=== PATIENT | female | born 1960 | race American Indian/Alaskan Native ===

== ENCOUNTER 2019-10-12 12:44 | Emergency (ER) | payer MEDICARE, OTHER ==
[~2019-10-12] VITALS: Ht 162.6 cm; Wt 153.3 kg
[~2019-10-12 12:44] MED LIST: AMITRIPTYLINE H10 MG PO; CEPHALEXIN500 MG PO; COZAAR100 MG PO; COZAAR25 MG PO; DICLOFENAC SODI75 MG PO; GLUCOPHAGE XR750 MG PO; HYDROCHLOROTHIA25 MG PO; HYDROCODON-ACE1 EA10 PO; LEVAQUIN500 MG PO; LOVASTATIN20 MG PO; METHOCARBAMOL750 MG PO; MICROZIDE12.5 MG PO; NEURONTIN300 MG PO; NORCO 10-325 T1 EACH PO; NOVOLOG MI100 UNIT/1 SUB-Q; NOVOLOG100 UNITS/ SUB-Q; PROBIOTIC & AC1 EACH PO; SYNTHROID25 MCG PO; THERA-M TABLET1 EA PO; VITAMIN D35000 UNIT PO
--- OUTSIDE RECORDS SUMMARY | 2019-10-12 12:46 | XMS ---
PreManage Notification: RONY CORREIA Security Bead Preparer Events No recent Security Events currently on file [facility] There are no care providers on record at this time. Jasbir has no Care Guidelines for this patient. Kailyn VISIT COUNT (12 MO.) 1 ARMANDO Ronquillo TOTAL 1 NOTE: Visits indicate total known visits. ED/UCC VISIT TRACKING (12 MO.) 10/12/2019 12:44 [facility] [place] TYPE: Emergency COMPLAINT: - CHEST PAIN INPATIENT VISIT TRACKING (12 MO.) No inpatient visits to display in this time frame [email or web address]
--- NOTE | 2019-10-12 20:43 | EKG ---
[facility] [address] [facility] [place], [place] [address] Signed Sinus rhythm with occasional premature ventricular complexes Right bundle branch block Septal infarct , age undetermined T wave abnormality, consider inferolateral ischemia Abnormal ECG Confirmed by THI MURRAY MD ([id number]) on 10/12/2019 8:43:28 PM Electronically Signed By: THI MURRAY MD 10/12/192042 PATIENT NAME: RONY CORREIA KANDI Electrocardiogram DATE OF : 64 PHYSICIAN: THI MURRAY MD REPORT #: [id number] REPORT IS CONFIDENTIAL AND NOT TO BE RELEASED WITHOUT AUTHORIZATION
--- NOTE | 2019-10-12 20:44 | EKG ---
[facility] [address] [facility] [place] [address] Signed Normal sinus rhythm Right bundle branch block Possible Inferior infarct , age undetermined T wave abnormality, consider lateral ischemia Abnormal ECG When compared with ECG of 12-OCT-2019 12:48, (Unconfirmed) premature ventricular complexes are no longer present Confirmed by THI MURRAY MD ([id number]) on 10/12/2019 8:43:56 PM Electronically Signed By: THI MURRAY MD 10/12/19 2044 PATIENT NAME: RONY CORREIA Electrocardiogram DATE OF : 64 PHYSICIAN: THI MURRAY MD REPORT #: [id number] REPORT IS CONFIDENTIAL AND NOT TO BE RELEASED WITHOUT AUTHORIZATION
== END 2019-10-12 17:27 | disposition short-term general hospital (02) ==
LOC: ED 12:44
DX: I95.9 Hypotension, unspecified (principal); R79.1 Abnormal coagulation profile; E11.40 Type 2 diabetes mellitus with diabetic neuropathy, unspecified; Z79.899 Other long term (current) drug therapy; Z79.4 Long term (current) use of insulin
CPT/HCPCS: 71045; 74176; 80053; 81001; 83605; 83735; 84484; 85025; 86850; 86900; 86901; 87077; 87088; 87186; 93005; 93010; 96374; 96375; 99291; J0696; J7030; J7050

== ENCOUNTER 2019-11-29 16:37 | Inpatient (IN) | payer MEDICARE, OTHER ==
[~2019-11-29] VITALS: Ht 162.6 cm; Wt 187.8 kg
--- OUTSIDE RECORDS SUMMARY | ~2019-11-29 | XMS | Encounter Summary ---
Demographics + + + | Address | [address] | | | [place] [address] | + + + | Home Phone | | + + + | Preferred Language | Unknown | + + + | Marital Status | | + + + | Mu-Ism Affiliation | Unknown | + + + | Race | Unknown | + + + | Ethnic Group | Unknown | + + + Author + + + | Author | [facility] | | | and [place] | + + + | Organization | [facility] | | | and [place] | + + + | Address | Unknown | + + + | Phone | Unavailable | + + + Support + + +---------+ + | Name | Relationship | Address | Phone | + + +---------+ + | Harshil Mckay | ECON | Unknown | | + + +---------+ + Care Team Providers + +------+ + | Care Interactive Designer Name | Role | Phone | + +------+ + | Mell Bautista | PCP | | + +------+ + Reason for Visit Auth/Cert +--------+--------+ + + + + | Status | Reason | Specialty | Diagnoses / | Referred By | Referred To | | | | | Procedures | Contact | Contact | +--------+--------+ + + + + | | | | | | | +--------+--------+ + + + + Encounter Details +--------+ + + + + | Date | Type | Department | Care Team | Description | +--------+ + + + + | 11/20/ | Home Care | [facility] | Triston Holley | CASE COMMUNICATION | | 2020 | Visit | [place] [address] | [place], [facility] | | | | | [place], [place] | [phone] | | | | | [address] | | | | | | [phone] | | | +--------+ + + + + Social History + +-------+ +--------+------+ | Tobacco Use | Types | Packs/Day | Years | Date | | | | | Used | | + +-------+ +--------+------+ | Never Smoker | | | | | + +-------+ +--------+------+ + +---+---+---+ | Smokeless Tobacco: | | | | | Never Used | | | | + +---+---+---+ + + +---------+ + | Alcohol Use | Drinks/Week | oz/Week | Comments | + + +---------+ + | Yes | 0 Standard drinks | 0.0 | RARE, about 6 beers | | | or equivalent | | per year | + + +---------+ + + + + | Sex Assigned at | Date Recorded | | | | + + + | Not on file | | + + + documented as of this encounter Functional Status + + + + | Functional Status | Response | Date of Assessment | + + + + | Are you deaf or do you have serious | No | 10/16/2019 | | difficulty hearing? | | | + + + + | Are you blind or do you have serious | No | 10/16/2019 | | difficulty seeing, even when wearing | | | | glasses? | | | + + + + | Do you have serious difficulty walking or | Yes | 10/16/2019 | | climbing stairs? (5 years old or older) | | | + + + + | Do you have difficulty dressing or bathing? | Yes | 10/16/2019 | | (5 years old or older) | | | + + + + | Because of a physical, mental, or emotional | Yes | 10/16/2019 | | condition, do you have difficulty doing | | | | errands alone such as visiting a doctor's | | | | office or shopping? [15 years old or | | | | older)] | | | + + + + + + + + | Cognitive Status | Response | Date of Assessment | + + + + | Because of a physical, mental, or emotional | No | 10/16/2019 | | condition, do you have serious difficulty | | | | concentrating, remembering, or making | | | | decisions? (5 years old or older) | | | + + + + documented as of this encounter Plan of Treatment +--------+ + + + + | Date | Type | Specialty | Care Team | Description | +--------+ + + + + | 12/02/ | Home Care | Home Health Services | [facility], | | | 2019 | Visit | | GENETIC PHYSICIAN [address] | | | | | | [place] | | | | | | [address] | | +--------+ + + + + | 12/04/ | Home Care | Home Health Services | [facility], | | | 2019 | Visit | | GENETIC PHYSICIAN [address] | | | | | | [place] | | | | | | [address] | | +--------+ + + + + | 12/04/ | Office | Sleep Medicine | Bre Vivas | | | 2019 | Visit | | XAVI Saldana [address] | | | | | | [address] [place] | | | | | | [place] [address] | | | | | | [phone] | | | | | | | | +--------+ + + + + | 12/05/ | Home Care | Home Health Services | Shoshana Caldwell, | | | 2019 | Visit | | RN | | +--------+ + + + + | 12/05/ | Home Care | Home Health Services | Eugenio Romeo | | 2019 | Visit | | [place] | | +--------+ + + + + | 12/09/ | Home Care | Home Health Services | [facility], | | | 2019 | Visit | | GIRISH [address] | | | | | | [place] | | | | | | [address] | | +--------+ + + + + | 12/11/ | Home Care | Home Health Services | Shoshana Caldwell, | | | 2019 | Visit | | RN | | +--------+ + + + + | 12/12/ | Home Care | Home Health Services | Eugenio Romeo | | | 2019 | Visit | | [place] | | +--------+ + + + + | 12/16/ | Appointment | Home Health Services | Hemal Sequeira, PT | | | 2019 | | | [address] [place] | | | | | | [place] [address] | | | | | | [phone] | | | | | | | | +--------+ + + + + | 12/18/ | Appointment | Home Health Services | Shoshana Caldwell, | | | 2019 | | | RN | | +--------+ + + + + | 12/19/ | Home Care | Home Health Services | Eugenoi Romeo | | | 2019 | Visit | | M, OT | | +--------+ + + + + | 01/22/ | Office | Cardiology | Zuhair Lee | | | 2019 | Visit | | MD Walker [address] | | | | | | [address] | | | | | | [place] [address] | | | | | | [phone] | | | | | | | | +--------+ + + + + documented as of this encounter Visit Diagnoses Not on filedocumented in this encounter"
--- OUTSIDE RECORDS SUMMARY | ~2019-11-29 | XMS | Encounter Summary ---
Demographics + + + | Address | [address] | | | [place] [address] | + + + | Home Phone | | + + + | Preferred Language | Unknown | + + + | Marital Status | | + + + | Roman Catholic Affiliation | Unknown | + + + | Race | Unknown | + + + | Ethnic Group | Unknown | + + + Author + + + | Author | [facility] | | | and [place] | + + + | Organization | [facility] | | | and [place] | [...] Team Providers + +------+ + | Care Leather Crafter Name | Role | Phone | + [...] | +--------+ + + + + | 11/28/ | Home Care | [facility] | Eugenio Romeo | CASE COMMUNICATION | | 2020 | Visit | [place] [address] | [place] | | | | | [place], [place] | | | | | | [address] | | | | | | [phone] | | | +--------+ + + + [...] | | 2019 | Visit | | CAREER SERVICES REPRESENTATIVE [address] | | | | | | [place] | | | | | | [address] | | +--------+ + + + + | 12/04/ | Home Care | Home Health Services | [facility], | | | 2019 | Visit | | CAREER SERVICES REPRESENTATIVE [address] | | | | | | [place] | | | | | | [address] | | +--------+ + + + + | 12/04/ | Office | Sleep Medicine | Bre Vivas | | | 2019 | Visit | | XAVI Saldana [address] | | | | | | [address] | | | | | | [place] [address] | | | | | | [phone] | | | | | | | [...] | | 2019 | Visit | | CAREER SERVICES REPRESENTATIVE [address] | | | | | | [place], [place] | | | | | | [address] | | +--------+ + + + + [...] | 2019 | | | [address] [place] | | | | | | [place] [address] | | | | | | [phone] | | | | | | | [...] | | | | | | [address] | | | | | | [place] [address] | | | | | | [phone] | | | | | | | | +--------+ + + + + documented as of this encounter Visit Diagnoses Not on filedocumented in this encounter"
--- OUTSIDE RECORDS SUMMARY | ~2019-11-29 | XMS | Encounter Summary ---
Demographics + + + | Address | [address] | | | [place] [address] | + + + | Home Phone | | + + + | Preferred Language | Unknown | + + + | Marital Status | | + + + | Hoahaoism Affiliation | Unknown | + + + | Race | Unknown | + + + | Ethnic Group | Unknown | + + + Author + + + | Author | [facility] | | | and [place] | + + + | Organization | [facility] | | | and [...] Team Providers + +------+ + | Care Assistant Manager Quality Management Name | Role | Phone | + [...] | +--------+ + + + + | 11/07/ | Home Care | [facility] [place] | [facility], | PT REPEAT VISIT | | 2020 | Visit | [place] [address] | JUNK REMOVAL SPECIALIST [address] | | | | | [place], [place] | [place] | | | | | [address] | [address] | | | | | [phone] | | | +--------+ + + + [...] + + + | Blood Pressure | - | - | | + + + + + | Pulse | 80 | 11/08/2019 10:10 AM | | | | | PDT | | + + + + + | Temperature | 36.1 C (96.9 F) | 11/08/2019 10:10 AM | | | | | PDT | | + + + + + | Respiratory Rate | - | - | | + + + + + | Oxygen Saturation | 90% | 11/08/2019 10:10 AM | | | | | PDT [...] this encounter Miscellaneous Notes Home Health - Rory[facility]upo, JUNK REMOVAL SPECIALIST - 11/08/2019 10:03 AM PDT1) Are you or anyone you [...] Level 3 Travel Health Notice: [place]: [place], [place], [place] ([facility]): [place], [place], [place], [place], [place], [place], [place] , [place], [place], [place], [place], [place], [place], [place], [place], [place], [facility], [place], [place], [place], [place], [place], [place], [place], [place], [place], [facility], [place], [facility] [place] and [place]: [place], [place], [place], [place], [place] Indicate positive screen if: Answer to any question 1-5 is yes or answer to question 6 indicates travel to a Level 3 anam tination. Consult with assistant office manager prior to visit. Subjective: pt using rolling stool for mobility at therapist arrival. Pt has ongoing otm consultant al/intrinsic factors that may affect outcomes including SOB with activity and R knee pain. P t tolerated treatment today limited due to low O2 sats with activity. Pt O2 decreased to 84% with gait activity. Pt reports she is tired today. Objective: instructed and performed as per interventions list. Pt education: -fall prevention: Instructed in the following home safety modifications and equipment use: use AD at all times when up/ambulating, remove all throw rugs , clear pathways and use of no n-skid footwear. -breathing pattern and energy conservation: instructed pt is energy conservation, task ritu akdown and simplification, and breathing patterns/techniques including diaphragmatic breathi ng and pursed lip breathing for recovery post exertion. Assessment: Has ongoing impairments, functional mobility constraints, and/or situational d ynamics that need to be addressed in continued skilled therapy including SOB with activity and R knee pain. Progress toward goals limited this TX due to SOB with any standing activi ty. pt O2 decreased to less then 90% with gait or extended standing returned to > 92% with s itting rest. educated pt with energy conservation and breathing patterns to maintain O2. not ified 1st PT of pt O2 issues, recommend RT see pt. Pt R knee pain also limiting pt tolerance to gait and standing activity's.Electronically signed by [facility] PTA at 0 4:34 PM PDTdocumented in this encounter Plan of Treatment +--------+ + + + + | Date | Type | Specialty | Care Team | Description | +--------+ + + + + | 12/02/ | Home Care | Home Health Services | Grupo Valadez, | | | 2019 | Visit | | JUNK REMOVAL SPECIALIST [address] | | | | | | [place] | | | | | | [address] | | +--------+ + + + + | 12/04/ | Home Care | Home Health Services | [facility], | | | 2019 | Visit | | JUNK REMOVAL SPECIALIST [address] | | | | | | [place] | | | | | | [address] | | +--------+ + + + + | 12/04/ | Office | Sleep Medicine | Bre Vivas | | | 2019 | Visit | | XAVI Saldana [address] | | | | | | [address] [place] | | | | | | [place] [address] | | | | | | [phone] | | | | | | | [...] | | 2019 | Visit | | JUNK REMOVAL SPECIALIST [address] | | | | | | [place] | | | | | | [address] | | +--------+ + + + + [...] Services | Hemal Sequeira, PT | | 2019 | | | [address] [place] | | | | | | [place] [address] | | | | | | [phone] | | | | | | | [...] | | | | | | [address] [place] | | | | | | [place] [address] | | | | | | [phone] | | | | | | | | +--------+ + + + + documented as of this encounter Visit Diagnoses Not on filedocumented in this encounter Home Health Visit - Care Plan + + | Visit Type - PT - REPEAT VISIT | | Discipline - Physical Therapy | + + + + +--------+--------+ + + | Problem | Description | Start | Status | Goals | Interventio | | | | Date | | | ns | + + +--------+--------+ + + | HH PT IMPAIRED | Impaired gait | | | 1 goal | 1 goal | | GAIT Disciplines: | | 10/31/19 | Active | linked to | interventio | | Physical Therapy | | 20 | | scheduled/d | n | | | | | | ocumented | scheduled/d | | | | | | interventio | ocumented | | | | | | n | in this | | | | | | | visit | + + +--------+--------+ + + | HH PT IMPAIRED | Impaired transfers | | | 1 goal | 1 goal | | TRANSFERS | | 10/31/19 | Active | linked to | interventio | | Disciplines: | | 20 | | scheduled/d | n | | Physical Therapy | | | | ocumented | scheduled/d [...] | + + +--------+-------+ + | HH PT GAIT/STAIRS | HH PT IMPAIRED | | No | | | Description: The | GAIT | | | | | patient will | | | | | | ambulate 50 feet | | | | | | using front-wheeled | | | | | | walker | | | | | | independently with | | | | | | assistive device | | | | | | 11/30/19. OUTCOMES: | | | | | | The patient will be | | | | | | able to safely | | | | | | ambulate to/from | | | | | | inside home to | | | | | | vehicle parked | | | | | | outside. . | | | | | + + +--------+-------+ + | HH PT TRANSFERS | HH PT IMPAIRED | | No | | | Description: The | TRANSFERS | | | | | patient and/or | | | | | | caregiver will | | | | | | understand and | | | | | | demonstrate safe | | | | | | transfer sequencing | | | | | | including car | | | | | | transfer by 11/30/19. | | | | | | Outcomes: The | | | | | | patient will reach | | | | | | maximal independence | | | | | | and safety with | | | | | | transfers to/from | | | | | | the all necessary | | | | | | household surfaces | | | | | | and car | | | | | + + +--------+-------+ + + + +--------+--------+ + | Intervention | Associated | Status | Varian | Visit Notes | | | Problem/Goal | | ce | | + + +--------+--------+ + | Pt gait training | Problem: HH PT | | | Therapist educated pt | | Description: | IMPAIRED GAITGoal: | Comple | | on appropriate AD use | | Evaluate and | HH PT GAIT/STAIRS | nellie | | given noted deficits and | | instruct patient | | | | impairments. Instructed | | and/or caregiver in | | | | pt with use of QC for | | gait training using | | | | 2x20 feet on even | | front-wheeled walker | | | | surfaces, completed task | | no weight bearing | | | | with contact guard | | restrictions | | | | assistance. Therapist | | | | | | gave VC for improved | | | | | | postural mechanics and | | | | | | normalized loading | | | | | | mechanics through ankles | | | | | | and hips. notes | | | | | | ongoing deficits: SOB | | | | | | with activity and R knee | | | | | | pain that limits gait., | | | | | | that will continue to | | | | | | be addressed in future | | | | | | visits. | + + +--------+--------+ + | PT transfer | Problem: HH PT | | | instructed pt on | | training | IMPAIRED | Comple | | corrected sit to stand | | Description: | TRANSFERSGoal: HH PT | nellie | | mechanics including | | Evaluate and | TRANSFERS | | | appropriate timing and | | instruct patient | | | | amplitude of forward wt | | and/or caregiver in | | | | shift at initiation, | | safe transfers using | | | | avoiding posterior | | appropriate body | | | | support on legs, and | | mechanics and | | | | completion of stance | | necessary equipment. | | | | with adequate hip | | | | | | extension to align | | | | | | pelvis and spine for | | | | | | optimal stability and | | | | | | function. | + + +--------+--------+ + documented in this encounter"
--- OUTSIDE RECORDS SUMMARY | ~2019-11-29 | XMS | Encounter Summary ---
Demographics + + + | Address | [address] | | | [place] [address] | + + + | Home Phone [...] + + + | Author | [facility] | | | and [place] | + + + | Organization | [facility] | | | and [place] | [...] Team Providers + +------+ + | Care Liberal Arts Dean Name | Role | Phone | + +------+ + | Mell Bautista | PCP | | + +------+ + Reason for Referral Evaluate & Treat (Routine) +--------+ + + + + + | Status | Reason | Specialty | Diagnoses / | Referred By | Referred To | | | | | Procedures | Contact | Contact | +--------+ + + + + + | Closed | Specialty | Cardiology | Diagnoses | Mauricio | Earl [facility] | | | Services | | Elevated | MD Daniel | Cardiology | | | Required | | troponin | [address] | [address] | | | | | Acute | [place] | [place], | | | | | cystitis | [place], [place] | [place] | | | | | without | [address] | [address] | | | | | hematuria | Phone: | Phone: | | | | | Sepsis, due | [phone] | [phone] | | | | | to | Fax: | Fax: | | | | | unspecified | [phone] | [phone] | | | | | organism, | | | | | | | unspecified | | | | | | | whether | | | | | | | acute organ | | | | | | | dysfunction | | | | | | | present | | | | | | | (HCC) | | | +--------+ + + + + + Evaluate & Treat (Routine) +--------+ + + + + + | Status | Reason | Specialty | Diagnoses / | Referred By | Referred To | | | | | Procedures | Contact | Contact | +--------+ + + + + + | Closed | Specialty | Sleep | Diagnoses | Mauricio, | [facility] | | | Services | Medicine | Elevated | MD Daniel | [facility] | | | Required | | troponin | [address] | Disorder [address] | | | | | Acute | [address] [place] | [address] | | | | | cystitis | [place], [place] | [place], | | | | | without | [address] | [place] [address] | | | | | hematuria | Phone: | Phone: | | | | | Sepsis, due | [phone] | [phone] | | | | | to | Fax: | Fax: | | | | | unspecified | [phone] | [phone] | | | | | organism, | | | | | | | unspecified | | | | | | | whether | | | | | | | acute organ | | | | | | | dysfunction | | | | | | | present | | | | | | | ([facility]) | | | +--------+ + + + + + Home Health Care (Routine) +--------+ + + + + + | Status | Reason | Specialty | Diagnoses / | Referred By | Referred To | | | | | Procedures | Contact | Contact | +--------+ + + + + + | Closed | Specialty | Home Health | Diagnoses | Mauricio, | Prov [facility] | | | Services | Services | Elevated | MD Daniel | [place] | | | Required | | troponin | [address] | [address] | | | | | Acute | [place] | [place] | | | | | cystitis | [place] | [place] | | | | | without | [address] | [address] | | | | | hematuria | Phone: | Phone: | | | | | Sepsis, due | [phone] | [phone] | | | | | to | Fax: | Fax: | | | | | unspecified | [phone] | [phone] | | | | | organism, | | | | | | | unspecified | | | | | | | whether | | | | | | | acute organ | | | | | | | dysfunction | | | | | | | present | | | | | | | ([facility]) | | | | | | | Procedures | | | | | | | 10/21/19 SN | | | | | | | PT OT*10/23* | | | +--------+ + + + + + Reason for Visit Auth/Cert +--------+--------+ + + + + | Status | Reason | Specialty | Diagnoses / | Referred By | Referred To | | | | | Procedures | Contact | Contact | +--------+--------+ + + + + | | | | Diagnoses | | | | | | | Sepsis, | | | | | | | elevated | | | | | | | troponin | | | +--------+--------+ + + + + Encounter Details +--------+ + + + + | Date | Type | Department | Care Team | Description | +--------+ + + + + | 10/11/ | Hospital | [facility] | Daniel Martínez MD | Elevated troponin; | | 2019 - | Encounter | [facility] | [address] | Acute cystitis | | | | [address] [place] | [place] | without hematuria; | | 10/15/ | | [place] [address] | [address] | Sepsis, due to | | 2019 | | [phone] | | unspecified | | | | | | organism, | | | | | | unspecified whether | | | | | | acute organ | | | | | | dysfunction present | | | | | | ([facility]) | +--------+ + + + + Social [...] + + + | Blood Pressure | 126/72 | 10/16/2019 7:40 AM | | | | | PDT | | + + + + + | Pulse | 87 | 10/16/2019 9:30 AM | | | | | PDT | | + + + + + | Temperature | 36.5 C (97.7 F) | 10/16/2019 7:40 AM | | | | | PDT | | + + + + + | Respiratory Rate | 16 | 10/16/2019 9:30 AM | | | | | PDT | | + + + + + | Oxygen Saturation | 90% | 10/16/2019 9:30 AM | | | | | PDT | | + + + + + | Inhaled Oxygen | - | - | | | Concentration | | | | + + + + + | Weight | 156.4 kg (344 lb | 10/16/2019 5:00 AM | | | | 12.8 oz) | PDT | | + + + + + | Height | 162.6 cm (5' 4") | 10/12/2019 6:12 PM | | | | | PDT | | + + + + + | Body Mass Index | 59.18 | 10/12/2019 6:12 PM | | | | | PDT | [...] + + documented as of this encounter Discharge Summaries Daniel Martínez MD - 10/16/2019 11:10 AM PDT [place], [place] HOSPITALIST DISCHARGE SUMMARY Pt. Name/Age/: Norbert Mckay 58 y.o. 1960 Date of Admission: 10/12/2019 Date of Discharge: 10/16/2019 Admitting Physician: Daniel Martínez MD Primary Care Provider: MARTHA Mcmahan Discharging Physician: Daniel Martínez MD DISCHARGE DIAGNOSES: UTI with sepsis POA Acute renal failure due to ischemic ATN Hyperkalemia due to renal failure Elevated troponin, likely demand ischemia in the context of hypotension/sepsis and impaired renal function IDDM Hypothyroidism Chronic pain Morbid obesity DISCHARGE MEDICATIONS: Discharge Medications New Medications Details aspirin 81 MG EC tablet Take 1 tablet by mouth Daily. aka: ASPIRIN ADULT LOW STRENGTH carvedilol 3.125 mg tablet Take 1 tablet by mouth 2 times daily. aka: COREG ciprofloxacin 500 mg tablet Take 1 tablet by mouth 2 times daily. aka: CIPRO lidocaine 5% patch Place 1 patch onto the skin Daily Apply for 12 hours, then remove for 12 hours.. aka: LIDODERM miconazole 2% powder For inner thigh skin infection. aka: MICATIN Unchanged Medications Details amitriptyline 10 mg tablet Take 20 mg by mouth nightly. aka: ELAVIL cholecalciferol 125 mcg (5,000 units) tablet Take 5,000 Units by mouth Daily. aka: VITAMIN D-3 cholecalciferol 25 mcg (1,000 units) capsule Take 1,000 Units by mouth Daily. aka: VITAMIN D-3 diclofenac 75 mg EC tablet Take 75 mg by mouth 2 times daily. aka: VOLTAREN ferrous sulfate 325 mg tablet Take 325 mg by mouth daily (with breakfast). gabapentin 300 mg capsule Take 600 mg by mouth 4 times daily. aka: NEURONTIN HYDROcodone-acetaminophen 10-325 mg per tablet Take 1 tablet by mouth every 6 hours as needed for Pain. aka: NORCO insulin - MIX insulin aspart protamine-insulin aspart 70/30 100 units/mL PEN Inject 35-45 Units under the skin 2 times daily (with breakfast & dinner). aka: novoLOG 70/30 levothyroxine 25 mcg tablet Take 25 mcg by mouth every morning (before breakfast). aka: SYNTHROID lovastatin 20 mg tablet Take 20 mg by mouth nightly. aka: MEVACOR metFORMIN 500 mg tablet Take 500 mg by mouth daily (with breakfast). aka: GLUCOPHAGE methocarbamol 750 mg tablet Take 750 mg by mouth 4 times daily. aka: ROBAXIN THERAGRAN PO Take 1 tablet by mouth Daily. UNABLE TO FIND Twice daily as needed. Med Name: Bio freeze Discontinued Medications hydroCHLOROthiazide 12.5 MG tablet aka: HYDRODIURIL losartan 50 mg tablet aka: [facility] COURSE: Please refer to the H&P for full details and the most recent rounding rounding (progress) n ote. In short Mrs Barrow a 58 y/omorbidly obese ladyw/pmhx of HTN,HDL,IDDM,MESHA, hypothyroi dism chronic pain syndrome on opioids with contract, vitamin D deficiency who [facility], near syncopal episode. Evaluation at outside hospital revealed hypotension, elevated white count, elevated lactic acid, elevated troponin with no acute EK G changes, dirty UA. Patient was diagnosed with sepsis source UTI, mildly elevated trendin g troponin. At our facility she was treated for sepsis with UTI, her BP has been consistent ly low and measurements not reliable with difficulty to find a proper cuff for her large arm s, she received an A-line for appropriate BP monitoring, she required short course of levoph ed to maintain her blood pressure and reestablish appropriate renal perfusion pressure. She sustained ischemic ATN due to low blood pressure with creatinine rise to 3.58, her kidney f unction started improving after BP went up. She was successfully weaned off norepinephrine with good blood pressures and eventually went to high blood pressure, her A-line was removed and she was transferred to general medicine floor where she continued to improve clinically . Her kidney function drifted down to 2.4 on the day of discharge, I explained to her that after ischemic ATN it may take several weeks for creatinine to normalize, she has been passi ng good urine all throughout. Her troponin went up from 0.1->0.7 and that was non-trending, with no chest pain or acute ischemic changes on EKG, I discussed this with fire fighting equipment specialist who recommended medical management, unfortunately she would not be a candidate for stress test or cath due to body weight. Patient was prescribed aspirin and low-dose carvedilol at disch arge, she was counseled extensively on risk factor modifications mainly losing weight. I di scontinued her losartan in light of renal failure, she was discharged home in stable conditi on, should follow-up with PCP within 7 days of discharge and her labs should be checked for kidney function, electrolytes. Continued BP monitoring was recommended and PCP may adjust h er meds according to renal function and BP readings. PT evaluated the patient recommended S NF, patient declined and was discharged with home health and PT. Her other medical problems remained stable and did not require modification of current management, patient stable clin ically at the time of discharge. Most recent weight: Input and output for last 24hrs: Wt Readings from Last 1 Encounters: 10/16/19 (!) 156.4 kg (344 lb 12.8 oz) I/O last 24 Hours: In: 2857 [P.O.:2857] Out: 2024 [Urine:2024] Vitals Ranges: Temp: [36.1 C (97 F)-37.2 C (99 F)] 36.5 C (97.7 F) Pulse: [70-92] 87 Resp: [16-18] 16 BP: (126-164)/(64-86) 126/72 Vitals: Temp: 36.5 C (97.7 F) BP: 126/72 Pulse: 87 Resp: 16 SpO2: 90 % SpO2 90 % on room air at flow rate 2L/min PHYSICAL EXAM: Patient seen and examined by me on discharge day Constitutional: NAD, afebrile Eye: pupils round, equal, reactive to light, no conjunctivitis nor scleral icterus Neck:Obese neck,no lymphadenopathy, thyromegaly nor masses Cardiac: RRR, S1/S2,quiet heart sounds,no murmurs, rubs or gallops,moderate bilateral 2+LE edema Lung: non labored breathing, breathing comfortable on room air,diminished breath sounds, no overtcrackles, wheezing or rhonchi Abdomen:Very obese abdomen,soft, NT,moderatelydistended, no HSM nor masses, BS + MSK: normal mobility in all four extremities, normal range of motion Skin: no rash,redness and discoloration from inner thighs of both thighs resembling funga l infection, chronic venous stasis changes on both calves Psych: mood and affect normal, oriented x3, appropriate and cooperative PROCEDURES AND CONSULTS: Procedures Arterial line placement Consults PT/OT PENDING RESULTS: None DISPOSITION AND DISCHARGE INSTRUCTIONS: Follow-up Information MARTHA Mcmahan. Go on 10/22/2019. Specialty: Nurse Practitioner Why: Hospital follow up appointment, check in at 1:45PM. Contact information: [address] [place] [address] 575- [phone] Condition: Patient being discharged with condition improved. Diet: Heart healthy diabetic diet, low calorie Greater than 30 minutes were spent on discharge and coordination of post-hospital care. Electronically signed by: Daniel Martínez MD, 10/16/2019 11:10 AM PDT [facility] Portions of this chart may have been created with [employer] voice recognition software. Occasi onal wrong-word or sound-alike substitutions may have occurred due to the inherent norris itations of voice recognition software. Please read the chart carefully and recognize, using context, where these substitutions have occurred documented in this enco unter Discharge Instructions Instructions Katy Robison, PharmD - 10/13/2019 Probiotics Patient Discharge Information Sheet Probiotics are often thought of as "friendly bacteria" or "healthy bacteria." They are sim ilar to the bacteria that normally live inside of our body and play a role in helping to vicki p the body working well. If you have been receiving antibiotics in the hospital, consider taking some form of a prob iotic once you are discharged. A reasonable approach is to take some form of probiotics for 5 days after antibiotics are completed. We have included some options below that may be more affordable and contain the types of ba cteria that have been found helpful in studies. If you have any concerns or questions about probiotics, or have a severe problem with your immune system, please discuss with your doctor. Recommended probiotic formulations commonly available in Pharmacies: ? VSL # 3: 1 capsule by mouth twice a day ? Culturelle: 1 capsule by mouth twice a day ? Provella: 1 capsule by mouth twice a day Dairy Product Options with Probiotics: ? Pili's Kefir (many flavors available): 8 ounces per day ? Pili's Organic Yogurt (many flavors available): 8 ounces per day ? Glynn Fresh Yogurt (many flavors available): 6 ounces per day documented in this encounter Medications at Time of Discharge + + + +---------+ + + | Medication | Sig | Dispensed | Refills | Start | End Date | | | | | | Date | | + + + +---------+ + + | amitriptyline | Take 20 mg by mouth | | 0 | | | | (ELAVIL) 10 mg | nightly. | | | | | | tablet | | | | | | + + + +---------+ + + | aspirin (ASPIRIN | Take 1 tablet by | 30 | 0 | 10/16/19 | | | ADULT LOW STRENGTH) | mouth Daily. | tablet | | 20 | | | 81 MG EC tablet | | | | | | + + + +---------+ + + | carvedilol (COREG) | Take 1 tablet by | 60 | 0 | 10/16/19 | | | 3.125 mg tablet | mouth 2 times daily. | tablet | | 20 | | + + + +---------+ + + | cholecalciferol | Take 1,000 Units by | | 0 | | | | (VITAMIN D-3) 1,000 | mouth Daily. | | | | | | units capsule | | | | | | + + + +---------+ + + | cholecalciferol | Take 5,000 Units by | | 0 | | | | (VITAMIN D-3) 5000 | mouth Daily. | | | | | | units TABS | | | | | | + + + +---------+ + + | ciprofloxacin | Take 1 tablet by | 12 | 0 | 10/16/19 | | | (CIPRO) 500 mg | mouth 2 times daily. | tablet | | 20 | | | tablet | | | | | | + + + +---------+ + + | diclofenac | Take 75 mg by mouth | | 0 | | | | (VOLTAREN) 75 mg EC | 2 times daily. | | | | | | tablet | | | | | | + + + +---------+ + + | ferrous sulfate | Take 325 mg by mouth | | 0 | | | | 325 mg tablet | daily (with | | | | | | | breakfast). | | | | | + + + +---------+ + + | gabapentin | Take 600 mg by mouth | | 0 | | | | (NEURONTIN) 300 mg | 4 times daily. | | | | | | capsule | | | | | | + + + +---------+ + + | | Take 1 tablet by | | 0 | | | | HYDROcodone-acetamin | mouth every 6 hours | | | | | | ophen (NORCO) 10-325 | as needed for Pain. | | | | | | mg per tablet | | | | | | + + + +---------+ + + | insulin aspart | Inject 35-45 Units | | 0 | 11/22/19 | | | protamine-insulin | under the skin 2 | | | 20 | | | aspart (NOVOLOG MIX | times daily (with | | | | | | 70/30 FLEXPEN) 100 | breakfast & dinner). | | | | | | units/mL injection | Patient is taking | | | | | | pen | 60 units in am and | | | | | | | 50 units in evening | | | | | + + + +---------+ + + | lidocaine | Place 1 patch onto | 30 | 0 | 10/16/19 | | | (LIDODERM) 5% patch | the skin Daily Apply | patch | | 20 | | | | for 12 hours, then | | | | | | | remove for 12 | | | | | | | hours.. | | | | | + + + +---------+ + + | lovastatin | Take 20 mg by mouth | | 0 | | | | (MEVACOR) 20 mg | nightly. | | | | | | tablet | | | | | | + + + +---------+ + + | metFORMIN | Take 500 mg by mouth | | 0 | | | | (GLUCOPHAGE) 500 mg | daily (with | | | | | | tablet | breakfast). | | | | | + + + +---------+ + + | methocarbamol | Take 750 mg by mouth | | 0 | 11/12/19 | | | (ROBAXIN) 750 mg | 3 times daily. | | | 20 | | | tablet | | | | | | + + + +---------+ + + | miconazole | For inner thigh skin | 30 g | 0 | 10/16/19 | | | (MICATIN) 2% powder | infection. | | | 20 | | + + + +---------+ + + | Multiple Vitamin | Take 1 tablet by | | 0 | | | | (THERAGRAN PO) | mouth Daily. | | | | | + + + +---------+ + + | UNABLE TO FIND | Twice daily as | | 0 | | | | | needed. Med Name: | | | | | | | Bio freeze | | | | | + + + +---------+ + + | levothyroxine | Take 25 mcg by mouth | | 0 | | | | (SYNTHROID, | every morning | | | | 0 | | LEVOTHROID) 25 mcg | (before breakfast). | | | | | | tablet | | | | | | + + + +---------+ + + documented as of this encounter Progress Notes Daniel Martínez MD - 10/15/2019 3:12 PM PDT [place], [place] HOSPITALIST PROGRESS NOTE Patient: Norbert Mckay : 1960: Age: 58 y.o. MedRec: [id number] Admission date: 10/12/2019 Hospital day # : 3 Physician author: Daniel Martínez MD Today: 10/15/2019 Assessment and Hospital Course Mrs Mckay is a 58 y/o morbidly obese lady w/pmhx of HTN, HDL, IDDM, MESHA, hypothyroidism c hronic pain syndrome on opioids with contract, vitamin D deficiency who presented to the hos pital with dizziness, near syncopal episode. Evaluation at outside hospital revealed hypote nsion, elevated white count, elevated lactic acid, elevated troponin with no acute EKG sepulveda es, dirty UA. Patient was diagnosed with sepsis source UTI, mildly elevated non-trending tr oponin likely due to demand ischemia. Transferred to our hospital for further management. Sh e sustained ischemic ATN, trops and hyperkalemia likely due to renal insufficiency. She was weaned off levophed with holding Bps, stable transferred to [facility]. Labs improving, pending fur ther improvement, anticipate d/c to home 10/16/19. Plan UTI w/ sepsis POA Hypotensive upon initial presentation, elevated lactate, elevated WBC, dirty UA Urine culture from outside hospital grew E.coli, sensitive to ceftriaxone and cipro Continue Ceftriaxone in house BP recovered and now in 150s systolic, holding BP meds today Monitor closely hemodynamic status, fever curve, lactic acid, white count Will d/c on several days of cipro to complete total 7 days of tx of UTI w/sepsis Hyperkalemia Resolved, it was due to renal failure Renal function is recovering Monitor electrolytes ARF Likely ischemic ATN in the context of hypotension/hypoperfusion Cr down to 2.9 this AM, it will likely take several weeks to fully recover Renal US showed medical renal disease and no obstruction/hydronephrosis BP now recovered, monitor hemodynamics Monitor kidney function closely Avoid nephrotoxins when possible Elevated troponin Mildly elevated non-trending troponin at 0.1->0.11->0.7->0.74->0.6->0.5 EKG showed TWI in inferior/lateral leads I believe this is likely demand ischemia due to sepsis/hypotension in the context of ARF Discussed with cardiology Dr Zamora, she would not be a candidate for any type of procedure at this time given her renal failure but her weight would not allow to do cath or stress te st for that matter ECHO showed normal EF 55% with grade 1 diastolic dysfunction and evidence of severe pulmona ry hypertension with peak systolic pressures up to 90 mmHg Will need aggressive risk factor/lifestyle modification and medical management, and likely would benefit for treatment of PIPER IDDM On insulin and metformin at home Sugars well controlled in house Continue basal insulin 16 with moderate supplemental scale Monitor sugars and adjust insulin according to requirements Diabetic diet HTN Presented hypotensive with sepsis BP recovered, hold antihypertensives today, will reintroduce tomorrow likely at lower doses Monitor closely BP Hypothyroidism TSH 1.01 Continue home dose levothyroxine at 25 micrograms daily Monitor symtpoms Chronic pain She is on chronic opiates for back pain, on contract, taking [place] Demanding meds upon arrival Continue home regimen if BP allows Monitor symptoms DVT prophylaxis: SCD, heparin SQ CODE STATUS: Full code Disposition: Continue inpatient care, anticipate discharge 10/16/2019 Subjective CC back pain, L knee pain Doing well, her clinical status improved greatly, BP normal off levophed, she had no new co mplaints except for back and knee pain, denied chest pain, shortness of breath, abdominal or urinary issues. ROS Constitutional: in no acute distress, afebrile Cardiac: Denies chest pain Pulmonary: Denies shortness of breath GI: Denies abdominal pain, nausea, vomiting : Denies dysuria or hematuria Skin: Inflammatory skin changes in inner thighs Psyche: Alert and oriented, cooperative MSK: back and knee pain Exam Constitutional: NAD, afebrile Eye: pupils round, equal, reactive to light, no conjunctivitis nor scleral icterus Neck: Obese neck, no lymphadenopathy, thyromegaly nor masses Cardiac: RRR, S1/S2, quiet heart sounds, no murmurs, rubs or gallops, moderate bilateral 2+ LE edema Lung: non labored breathing, diminished breath sounds, coarse sounds, no overt crackles, wh eezing or rhonchi Abdomen: Very obese abdomen, soft, NT, moderately distended, no HSM nor masses, BS + MSK: normal mobility in all four extremities, normal range of motion Skin: no rash, redness and discoloration from inner thighs of both thighs resembling fungal infection, chronic venous stasis changes on both calves Psych: mood and affect normal, oriented x3, appropriate and cooperative Objective Data Vitals Ranges: Temp: [35.9 C (96.6 F)-36.5 C (97.7 F)] 36.1 C (97 F) Pulse: [70-86] 70 Resp: [12-18] 16 BP: (125-166)/(63-77) 132/75 Arterial Line BP: (146-154)/(69-73) 154/69 Vitals: Temp: 36.1 C (97 F) BP: 132/75 Pulse: 70 Resp: 16 SpO2: 96 % SpO2 96 % on nasal cannula at flow rate 1L/min Allergies: Allergies Allergen Reactions Lyrica [Pregabalin] PERIPHERAL EDEMA Current Medications: Current Facility-Administered Medications Medication Dose Route Frequency Provider Last Rate Last Dose aluminum & magnesium hydroxide-simethicone (MAALOX PLUS REGULAR STRENGTH) 200-200-20 mg /5 mL suspension 30 mL 30 mL Oral Q4H PRN Daniel Martínez MD amitriptyline (ELAVIL) tablet 20 mg 20 mg Oral Nightly Daniel Martínez MD 20 mg at 2123 atorvaSTATin (LIPITOR) tablet 20 mg 20 mg Oral Nightly Daniel Martínez MD 20 mg at 2122 bisacodyl (DULCOLAX) suppository 10 mg 10 mg Rectal Daily PRN Daniel Martínez MD calcium carbonate (TUMS) chewable tablet 1,000 mg 1,000 mg Oral Q4H PRN Daniel Martínez MD cefTRIAXone (ROCEPHIN) 1 g in sodium chloride 0.9% 50 mL IVPB 1 g Intravenous Q24H Malgorzata Martínez MD 100 mL/hr at 10/14/192122 1 g at 10/14/192122 cholecalciferol (VITAMIN D-3) tablet 1,000 Units 1,000 Units Oral Daily Daniel Martínez MD 1,000 Units at 10/15/19 0837 dextrose 50% injection 12.5-25 g 12.5-25 g Intravenous PRN Daniel Martínez MD And dextrose 10% (D10W) infusion Intravenous Continuous PRN Daniel Martínez MD diclofenac (VOLTAREN) EC tablet 50 mg 50 mg Oral BID Daniel Martínez MD 50 mg at 10/14 0836 docusate sodium (COLACE) capsule 100 mg 100 mg Oral BID PRN Daniel Martínez MD ferrous sulfate tablet 325 mg 325 mg Oral Daily with breakfast Daniel Martínez MD 325 mg at 10/15/19 0837 gabapentin (NEURONTIN) capsule 600 mg 600 mg Oral BID Kassi Nolasco PharmD 600 mg at 10/15/19 1227 heparin 5,000 units/mL injection 5,000 Units 5,000 Units Subcutaneous Q12H Daniel Palacios i, MD 5,000 Units at 10/15/19 0835 HYDROcodone-acetaminophen (NORCO) 10-325 mg per tablet 1 tablet 1 tablet Oral Q6H PRN Daniel Martínez MD 1 tablet at 10/15/19 0837 insulin glargine (LANTUS SOLOSTAR) injection (pen) 16 Units 0.1 Units/kg/day Subcutane ous Nightly Daniel Martínez MD 16 Units at 10/14/19 2118 insulin lispro (humaLOG KWIKPEN) injection (pen) 0-12 Units 0-12 Units Subcutaneous 4x Daily WC and HS Daniel Martínez MD 2 Units at 10/15/19 1210 lactobacillus GG (CULTURELLE) capsule 1 capsule 1 capsule Oral BID Daniel Martínez MD 1 capsule at 10/15/19 0838 levothyroxine (SYNTHROID) tablet 25 mcg 25 mcg Oral QAM AC Daniel Martínez MD 25 mcg a t 10/15/19 0610 lidocaine (LIDODERM) 5% patch 1 patch 1 patch Transdermal Daily Daniel Martínez MD 1 p atch at 10/15/19 0835 lidocaine (LIDODERM) 5% patch 1 patch 1 patch Transdermal Daily Daniel Martínez MD 1 p atch at 10/14/19 2126 magnesium hydroxide (MILK OF MAGNESIA) 400 mg/5 mL suspension 30 mL 30 mL Oral Nightly PRN Daniel Martínez MD methocarbamol (ROBAXIN) tablet 750 mg 750 mg Oral 4x Daily Daniel Martínez MD 750 mg a t 10/15/19 1227 metoclopramide (REGLAN) 5 mg/mL injection 5 mg 5 mg Intravenous Q4H PRN Daniel Martínez MD metoclopramide (REGLAN) tablet 5 mg 5 mg Oral Q4H PRN Daniel Martínez MD miconazole (MICATIN) 2% powder Topical BID Daniel Martínez MD ondansetron (ZOFRAN ODT) disintegrating tablet 4 mg 4 mg Oral Q6H PRN Daniel Martínez MD ondansetron (ZOFRAN) injection 4 mg 4 mg Intravenous Q6H PRN Daniel Martínez MD polyethylene glycol (MIRALAX) powder 17 g 17 g Oral Daily PRN Daniel Martínez MD prochlorperazine tablet 10 mg 10 mg Oral Q6H PRN Daniel Martínez MD senna (SENOKOT) tablet 8.6 mg 8.6 mg Oral BID PRN Daniel Martínez MD sodium chloride 0.9% (NS) 250 mL bolus Intravenous PRN Daniel Martínez MD Current Infusions: dextrose 10% Point of care glucose Recent Labs Lab 10/15/19 1209 10/14/19 2054 10/14/19 1651 10/14/19 1216 10/14/19 0702 10/13/19 2210 POCGLU 153* 127* 116* 128* 146* 164* Labs last 24 hours Recent Results (from the past 24 hour(s)) POC Glucose Collection Time: 10/14/19 4:51 PM Result Value Ref Range Glucose, POC 116 (H) 70 - 109 mg/dL Basic Metabolic Panel Collection Time: 10/14/19 6:32 PM Result Value Ref Range Na 138 136 - 145 mmol/L K 4.6 3.4 - 5.1 mmol/L Cl 110 (H) 98 - 107 mmol/L CO2 19 (L) 20 - 31 mmol/L Anion Gap 9 3 - 16 mmol/L Glucose 140 (H) 60 - 106 mg/dL BUN 47 (H) 9 - 23 mg/dL Creatinine 3.05 (H) 0.55 - 1.02 mg/dL eGFR if not 16 (L) >=60 mL/min/1.73m2 Calcium 8.1 (L) 8.7 - 10.4 mg/dL BUN/Creatinine Ratio 15.4 POC Glucose Collection Time: 10/14/19 8:54 PM Result Value Ref Range Glucose, POC 127 (H) 70 - 109 mg/dL Basic Metabolic Panel Collection Time: 10/15/19 4:55 AM Result Value Ref Range Na 141 136 - 145 mmol/L K 4.5 3.4 - 5.1 mmol/L Cl 111 (H) 98 - 107 mmol/L CO2 20 20 - 31 mmol/L Anion Gap 10 3 - 16 mmol/L Glucose 117 (H) 60 - 106 mg/dL BUN 45 (H) 9 - 23 mg/dL Creatinine 2.90 (H) 0.55 - 1.02 mg/dL eGFR if not 17 (L) >=60 mL/min/1.73m2 Calcium 8.1 (L) 8.7 - 10.4 mg/dL BUN/Creatinine Ratio 15.5 CBC no Differential Collection Time: 10/15/19 4:55 AM Result Value Ref Range WBC 7.0 4.0 - 11.0 K/uL RBC 3.35 (L) 3.70 - 5.20 M/uL Hemoglobin 10.5 (L) 11.5 - 16.0 g/dL Hematocrit 33.9 (L) 34.0 - 47.0 % MCV 101.2 (H) 83.0 - 101.0 fL MCH 31.3 28.0 - 35.0 pg MCHC 31.0 (L) 32.0 - 36.0 g/dL RDW-CV 14.3 <15.0 % RDW-SD 52.6 (H) 35.1 - 46.3 fL Platelet Count 136 (L) 140 - 440 K/uL MPV 11.4 6.5 - 12.4 fL % nRBC 0 0 - 2 per 100 WBCs Absolute nRBC 0.00 0.00 - 0.01 K/uL Magnesium Collection Time: 10/15/19 4:55 AM Result Value Ref Range Magnesium 1.4 (L) 1.6 - 2.6 mg/dL Phosphorus Collection Time: 10/15/19 4:55 AM Result Value Ref Range Phosphorus 5.0 2.4 - 5.1 mg/dL POC Glucose Collection Time: 10/15/19 12:09 PM Result Value Ref Range Glucose, POC 153 (H) 70 - 109 mg/dL Micro results (more choices using dot micro) Microbiology Results (72 hrs) Procedure Component Value Units Date/Time Culture, MRSA [[id number]] Collected: 10/12/19 1838 Order Status: Completed Lab Status: Final result Updated: 10/13/19 1125 Specimen: Tissue from Nares Culture Negative for MRSA by chromogenic agar method. 4+ Coagulase positive Staphylococcus ECHO 10/14/2019 1. Moderate right atrial dilatation. 2. Normal left ventricular size with a mild concentric left ventricular hypertrophy. Left ventricular systolic function is preserved. LVEF is 55%. 3. Grade 1 left ventricular diastolic dysfunction. 4. Moderate right ventricular dilatation with a mild eccentric left ventricular hypertroph y. Right ventricular systolic function is preserved. 5. Mildly thickened and calcified trileaflet aortic valve with adequate opening. There is aortic valve sclerosis without significant aortic valve stenosis. 6. 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 7. Mild mitral annular calcification. 8. Mild central tricuspid valve regurgitation. 9. Severe pulmonary hypertension with a peak systolic pressure of 85 to 90 mmHg. 10. Dilated IVC without respiratory collapse suggesting fluid retention. 11. No previous echocardiogram for comparison. US Kidneys 10/13/2019 Limited by patient's body habitus. Lobular contour of bilateral kidneys with elevated resistive index of right kidney consistent with medical renal disease. Resistive index could not be obtained for the left kidney. Daniel Martínez MD Portions of this chart may have been created with [employer] voice recognition software. Occasi onal wrong-word or sound-alike substitutions may have occurred due to the inherent norris itations of voice recognition software. Please read the chart carefully and recognize, using context, where these substitutions have occurred Kassi Krishnamurthy, Pharm D - 10/15/2019 10:32 AM PDT RENAL DOSE ADJUSTMENT PER PHARMACY PROTOCOL: Subjective/Objective: Norbert Mckay is a 58 y.o. year old female admitted on 10/12/2019 5:57 PM and is receiv ing gabapentin BP 137/65 | Pulse 80 | Temp 36.4 C (97.5 F) (Oral) | Resp 16 | Ht 1.626 m (5' 4") | Wt (!) 159.7 kg (352 lb 1.2 oz) | SpO2 96% | BMI 60.43 kg/m Intake/Output Summary (Last 24 hours) at 10/15/2019 1032 Last data filed at 10/15/2019 0623 Gross per 24 hour Intake 613 ml Output 1250 ml Net -637 ml Recent Labs Lab 10/15/19 0455 10/14/19 1832 10/14/19 0439 CREA 2.90* 3.05* 3.38* Estimated Creatinine Clearance: 33 mL/min (A) (based on SCr of 2.9 mg/dL (H)). 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 For creatinine clearance 30-50 mL/min, increase dose of gabapentin as above. 2. Pharmacy will continue to follow and adjust dose as appropriate to clinical condition an d creatinine clearance changes RENAL DOSE ADJUSTMENT PROTOCOL Electronically signed by: Kassi Nolasco PharmD 10/15/2019 10:32 AM PDT Daniel Owens M D - 10/14/2019 9:29 AM PDT [place], [place] [facility]IST PROGRESS NOTE Patient: Norbert Mckay : 1960: Age: 58 y.o. MedRec: [id number] Admission date: 10/12/2019 Hospital day # : 2 Physician author: Daniel Martínez MD Today: 10/14/2019 Assessment and Hospital Course Mrs Mckay is a 58 y/o morbidly obese lady w/pmhx of HTN, HDL, IDDM, MESHA, hypothyroidism c hronic pain syndrome on opioids with contract, vitamin D deficiency who presented to the [facility] with dizziness, near syncopal episode. Evaluation at outside hospital revealed hypote nsion, elevated white count, elevated lactic acid, elevated troponin with no acute EKG sepulveda es, dirty UA. Patient was diagnosed with sepsis source UTI, mildly elevated non-trending tr oponin likely due to demand ischemia. Transferred to our hospital for further management. Sh e sustained ischemic ATN, trops and hyperkalemia likely due to renal insufficiency. Her BP i s recovering, pending further improvement. Plan UTI w/ sepsis POA Hypotensive upon initial presentation, elevated lactate, elevated WBC, dirty UA Blood cultures/urine cultures NGTD Continue Ceftriaxone BP recovering, SBP in 110s on 1mcg levophed this AM, will wean off as tolerated Monitor closely hemodynamic status, fever curve, lactic acid, white count Follow-up on final cultures, tailor antibiotics accordingly Hyperkalemia K 5.3 this morning, likely due to renal failure No characteristic EKG changes Pt being treated per protocol Monitor BMP closely Monitor on telemetry ARF Likely ischemic ATN in the context of hypotension/hypoperfusion Cr down to 3.3 this AM, it will likely take several weeks to fully recover Renal US showed medical renal disease and no obstruction/hydronephrosis Continue to focus on maintaining normal perfusion pressure Monitor kidney function closely Avoid nephrotoxins when possible Elevated troponin Mildly elevated non-trending troponin at 0.1->0.11->0.7->0.74->0.6->0.5 EKG showed TWI in inferior/lateral leads I believe this is likely demand ischemia in the context of sepsis/hypotension in the contex t of ARF Discussed with cardiology Dr Zamora, she would not be a candidate for any type of procedure at this time given her renal failure but her weight would not be feasible to do cath or str ess test for that matter ECHO pending Will need aggressive risk factor/lifestyle modification and medical management IDDM On insulin and metformin at home Sugars well controlled in house On basal insulin 16 with moderate supplemental scale Monitor sugars and adjust insulin according to requirements Diabetic diet HTN Now hypotensive in the context of sepsis and hypovolemia Hold antihypertensives Monitor closely BP Reintroduce home meds when BP goes above 150 Hypothyroidism TSH 1.01 Continue home dose levothyroxine at 25 micrograms daily Monitor symtpoms Chronic pain She is on chronic opiates for back pain, on contract, taking [place] Demanding meds upon arrival Continue home regimen if BP allows Monitor symptoms DVT prophylaxis: SCD, heparin SQ CODE STATUS: Full code Disposition: Continue inpatient care Subjective CC back pain, L knee pain Slept like a baby throughout the night, stable complaints of back pain and L knee pain, den ied difficulty breathing, no chest pain, abdominal or urinary complaints. ROS Constitutional: in no acute distress, afebrile Cardiac: Denies chest pain Pulmonary: Denies shortness of breath GI: Denies abdominal pain, nausea, vomiting : Denies dysuria or hematuria Skin: Inflammatory skin changes in inner thighs Psyche: Alert and oriented, cooperative MSK: back and knee pain Exam Constitutional: NAD, afebrile Eye: pupils round, equal, reactive to light, no conjunctivitis nor scleral icterus Neck: Obese neck, no lymphadenopathy, thyromegaly nor masses Cardiac: RRR, S1/S2, quiet heart sounds, no murmurs, rubs or gallops, moderate bilateral 2+ LE edema Lung: non labored breathing, diminished breath sounds, coarse sounds, no overt crackles, wh eezing or rhonchi Abdomen: Very obese abdomen, soft, NT, moderately distended, no HSM nor masses, BS + MSK: normal mobility in all four extremities, normal range of motion Skin: no rash, redness and discoloration from inner thighs of both thighs resembling fungal infection, chronic venous stasis changes on both calves Psych: mood and affect normal, oriented x3, appropriate and cooperative Objective Data Vitals Ranges: Temp: [35.7 C (96.3 F)-36.8 C (98.2 F)] 35.7 C (96.3 F) Pulse: [75-89] 75 Resp: [13-21] 17 BP: (111-141)/(56-69) 140/69 Arterial Line BP: (88-165)/(47-77) 148/67 Vitals: Temp: 35.7 C (96.3 F) BP: 140/69 Pulse: 75 Resp: 17 SpO2: 97 % SpO2 97 % on nasal cannula at flow rate 2L/min Allergies: Allergies Allergen Reactions Lyrica [Pregabalin] PERIPHERAL EDEMA Current Medications: Current Facility-Administered Medications Medication Dose Route Frequency Provider Last Rate Last Dose aluminum & magnesium hydroxide-simethicone (MAALOX PLUS REGULAR STRENGTH) 200-200-20 mg /5 mL suspension 30 mL 30 mL Oral Q4H PRN Daniel Martínez MD amitriptyline (ELAVIL) tablet 20 mg 20 mg Oral Nightly Daniel Martínez MD 20 mg at 2132 atorvaSTATin (LIPITOR) tablet 20 mg 20 mg Oral Nightly Daniel Martínez MD 20 mg at 2132 bisacodyl (DULCOLAX) suppository 10 mg 10 mg Rectal Daily PRN Daniel Martníez MD calcium carbonate (TUMS) chewable tablet 1,000 mg 1,000 mg Oral Q4H PRN Daniel Martínez MD cefTRIAXone (ROCEPHIN) 1 g in sodium chloride 0.9% 50 mL IVPB 1 g Intravenous Q24H Malgorzata Martínez MD 100 mL/hr at 10/13/19 2221 1 g at 10/13/19 2221 cholecalciferol (VITAMIN D-3) tablet 1,000 Units 1,000 Units Oral Daily Daniel Martínez MD 1,000 Units at 10/13/19 0837 dextrose 50% injection 12.5-25 g 12.5-25 g Intravenous PRN Daniel Martínez MD And dextrose 10% (D10W) infusion Intravenous Continuous PRN Daniel Martínez MD diclofenac (VOLTAREN) EC tablet 50 mg 50 mg Oral BID Katy Robison, PharmD 50 mg at 10/13/192131 docusate sodium (COLACE) capsule 100 mg 100 mg Oral BID PRN Daniel Martínez MD ferrous sulfate tablet 325 mg 325 mg Oral Daily with breakfast Daniel Martínez MD 325 mg at 10/13/19 0837 gabapentin (NEURONTIN) capsule 600 mg 600 mg Oral Daily Ari Rangel, Pharmacy Re sident 600 mg at 10/13/192132 heparin 5,000 units/mL injection 5,000 Units 5,000 Units Subcutaneous Q12H Daniel Palacios i, MD 5,000 Units at 10/13/192152 HYDROcodone-acetaminophen (NORCO) 10-325 mg per tablet 1 tablet 1 tablet Oral Q6H PRN Daniel Martínez MD 1 tablet at 10/14/19658 insulin glargine (LANTUS SOLOSTAR) injection (pen) 16 Units 0.1 Units/kg/day Subcutane ous Nightly Daniel Martínez MD 16 Units at 10/13/192210 insulin lispro (humaLOG KWIKPEN) injection (pen) 0-12 Units 0-12 Units Subcutaneous 4x Daily WC and HS Daniel Martínez MD 2 Units at 10/13/19 1157 lactobacillus GG (CULTURELLE) capsule 1 capsule 1 capsule Oral BID Katy Robison, Pha rmD 1 capsule at 10/13/192132 levothyroxine (SYNTHROID) tablet 25 mcg 25 mcg Oral QAM AC Daniel Martínez MD 25 mcg a t 10/14/19658 lidocaine (LIDODERM) 5% patch 1 patch 1 patch Transdermal Daily Daniel Martínez MD 1 p atch at 10/13/192151 magnesium hydroxide (MILK OF MAGNESIA) 400 mg/5 mL suspension 30 mL 30 mL Oral Nightly PRN Daniel Martínez MD methocarbamol (ROBAXIN) tablet 750 mg 750 mg Oral 4x Daily Daniel Martínez MD 750 mg a t 10/13/192131 metoclopramide (REGLAN) 5 mg/mL injection 5 mg 5 mg Intravenous Q4H PRN Ari capone, [employer] Dinner metoclopramide (REGLAN) tablet 5 mg 5 mg Oral Q4H PRN Ari Rangel, Pharmacy Resi dent miconazole (MICATIN) 2% powder Topical BID Daniel Martínez MD norepinephrine in saline (LEVOPHED) 16 mcg/mL infusion 0-30 mcg/min Intravenous Titrat ed Daniel Martínez MD 3.8 mL/hr at 10/14/19 0730 1 mcg/min at 10/14/19 0730 ondansetron (ZOFRAN ODT) disintegrating tablet 4 mg 4 mg Oral Q6H PRN Daniel Martínez MD ondansetron (ZOFRAN) injection 4 mg 4 mg Intravenous Q6H PRN Daniel Martínez MD polyethylene glycol (MIRALAX) powder 17 g 17 g Oral Daily PRN Daniel Martínez MD prochlorperazine tablet 10 mg 10 mg Oral Q6H PRN Daniel Martínez MD senna (SENOKOT) tablet 8.6 mg 8.6 mg Oral BID PRN Daniel Martínez MD sodium chloride 0.9% (NS) 250 mL bolus Intravenous PRN Daniel Martínez MD Current Infusions: dextrose 10% norepinephrine 1 mcg/min (10/14/19 0730) Point of care glucose Recent Labs Lab 10/14/19 0702 10/13/19 2210 10/13/19 1636 10/13/19 1135 10/13/19 0700 10/12/19 2209 POCGLU 146* 164* 145* 154* 132* 164* Labs last 24 hours Recent Results (from the past 24 hour(s)) Sodium, Urine, Random Collection Time: 10/13/19 10:46 AM Result Value Ref Range Sodium, Urine Random 20 (L) 40 - 220 mmol/L Osmolality, Urine Collection Time: 10/13/19 10:46 AM Result Value Ref Range OSMO URINE 331 300-1,000 mOsm/kg Basic Metabolic Panel Collection Time: 10/13/19 10:58 AM Result Value Ref Range Na 138 136 - 145 mmol/L K 5.4 (H) 3.4 - 5.1 mmol/L Cl 109 (H) 98 - 107 mmol/L CO2 18 (L) 20 - 31 mmol/L Anion Gap 11 3 - 16 mmol/L Glucose 163 (H) 60 - 106 mg/dL BUN 46 (H) 9 - 23 mg/dL Creatinine 3.55 (H) 0.55 - 1.02 mg/dL eGFR if not 13 (L) >=60 mL/min/1.73m2 Calcium 7.8 (L) 8.7 - 10.4 mg/dL BUN/Creatinine Ratio 13.0 TSH Collection Time: 10/13/19 10:58 AM Result Value Ref Range TSH 1.01 0.55 - 4.78 uIU/mL POC Glucose Collection Time: 10/13/19 11:35 AM Result Value Ref Range Glucose, POC 154 (H) 70 - 109 mg/dL Troponin I Collection Time: 10/13/19 1:21 PM Result Value Ref Range Troponin I 0.61 (HH) <0.06 ng/mL POC Glucose Collection Time: 10/13/19 4:36 PM Result Value Ref Range Glucose, POC 145 (H) 70 - 109 mg/dL Troponin I Collection Time: 10/13/19 6:12 PM Result Value Ref Range Troponin I 0.58 (HH) <0.06 ng/mL Basic Metabolic Panel Collection Time: 10/13/19 6:12 PM Result Value Ref Range Na 136 136 - 145 mmol/L K 5.1 3.4 - 5.1 mmol/L Cl 110 (H) 98 - 107 mmol/L CO2 16 (L) 20 - 31 mmol/L Anion Gap 10 3 - 16 mmol/L Glucose 185 (H) 60 - 106 mg/dL BUN 46 (H) 9 - 23 mg/dL Creatinine 3.47 (H) 0.55 - 1.02 mg/dL eGFR if not 14 (L) >=60 mL/min/1.73m2 Calcium 8.0 (L) 8.7 - 10.4 mg/dL BUN/Creatinine Ratio 13.3 POC Glucose Collection Time: 10/13/19 10:10 PM Result Value Ref Range Glucose, POC 164 (H) 70 - 109 mg/dL Troponin I Collection Time: 10/14/19 12:08 AM Result Value Ref Range Troponin I 0.50 (HH) <0.06 ng/mL Basic Metabolic Panel Collection Time: 10/14/19 4:39 AM Result Value Ref Range Na 138 136 - 145 mmol/L K 5.3 (H) 3.4 - 5.1 mmol/L Cl 111 (H) 98 - 107 mmol/L CO2 17 (L) 20 - 31 mmol/L Anion Gap 10 3 - 16 mmol/L Glucose 170 (H) 60 - 106 mg/dL BUN 47 (H) 9 - 23 mg/dL Creatinine 3.38 (H) 0.55 - 1.02 mg/dL eGFR if not 14 (L) >=60 mL/min/1.73m2 Calcium 8.1 (L) 8.7 - 10.4 mg/dL BUN/Creatinine Ratio 13.9 CBC no Differential Collection Time: 10/14/19 4:39 AM Result Value Ref Range WBC 9.0 4.0 - 11.0 K/uL RBC 3.57 (L) 3.70 - 5.20 M/uL Hemoglobin 11.2 (L) 11.5 - 16.0 g/dL Hematocrit 35.9 34.0 - 47.0 % MCV 100.6 83.0 - 101.0 fL MCH 31.4 28.0 - 35.0 pg MCHC 31.2 (L) 32.0 - 36.0 g/dL RDW-CV 14.4 <15.0 % RDW-SD 52.4 (H) 35.1 - 46.3 fL Platelet Count 160 140 - 440 K/uL MPV 11.1 6.5 - 12.4 fL % nRBC 0 0 - 2 per 100 WBCs Absolute nRBC 0.00 0.00 - 0.01 K/uL Hepatic Function Panel Collection Time: 10/14/19 4:39 AM Result Value Ref Range Bilirubin Total 0.3 0.3 - 1.2 mg/dL Total Protein 6.2 5.7 - 8.2 g/dL Albumin 3.2 3.2 - 4.8 g/dL AST 111 (H) 0 - 34 U/L ALT 78 (H) 10 - 49 U/L Alkaline Phosphatase 439 (H) 46 - 116 U/L Globulin 3.0 2.1 - 3.8 g/dL Albumin/Globulin Ratio 1.1 0.8 - 1.9 Bilirubin, Direct 0.20 0.00 - 0.30 mg/dl Magnesium Collection Time: 10/14/19 4:39 AM Result Value Ref Range Magnesium 1.6 1.6 - 2.6 mg/dL Phosphorus Collection Time: 10/14/19 4:39 AM Result Value Ref Range Phosphorus 5.5 (H) 2.4 - 5.1 mg/dL POC Glucose Collection Time: 10/14/19 7:02 AM Result Value Ref Range Glucose, POC 146 (H) 70 - 109 mg/dL Micro results (more choices using dot micro) Microbiology Results (72 hrs) Procedure Component Value Units Date/Time Culture, MRSA [[id number]] Collected: 10/12/19 1838 Order Status: Completed Lab Status: Final result Updated: 10/13/19 1125 Specimen: Tissue from Nares Culture Negative for MRSA by chromogenic agar method. 4+ Coagulase positive Staphylococcus Radiology results: US renal pending results Daniel Martínez MD Portions of this chart may have been created with [employer] voice recognition software. Occasi onal wrong-word or sound-alike substitutions may have occurred due to the inherent norris itations of voice recognition software. Please read the chart carefully and recognize, using context, where these substitutions have occurred Joy Pierson RN - 10/13/2019 10:40 AM [facility] Access Team Note- After discussion with Dr Martínez, pt will receive a midline IV- can place PICC if pt need f or central access changes. Following Infusion Nurses Society standards of care; 18 gauge 8cm length BARD PowerGlide Pr o midline catheter placed x 1 stick with ultrasound guidance. Catheter inserted to 7cm with 1 cm external. Draws bright red blood briskly, flushes easily with normal saline. Sterile dr wooten applied. Report to LUKE Porter who continues care. Thank you for this referral. Electronically signed by: Joy Garsia RN 10/13/2019 11:35 AM PDT Daniel Owens MD - 10/13/2019 9:31 AM PDT [facility] PROGRESS NOTE Patient: Norbert Mckay : 1960: Age: 58 y.o. MedRec: [id number] Admission date: 10/12/2019 Hospital day # : 1 Physician author: Daniel Martínez MD Today: 10/13/2019 Assessment and Hospital Course Mrs Mckay is a 58 y/o morbidly obese lady w/pmhx of HTN, HDL, IDDM, MESHA, hypothyroidism c hronic pain syndrome on opioids with contract, vitamin D deficiency who presented to the [facility] with dizziness, near syncopal episode. Evaluation at outside hospital revealed hypote nsion, elevated white count, elevated lactic acid, elevated troponin with no acute EKG sepulveda es, dirty UA. Patient was diagnosed with sepsis source UTI, mildly elevated non-trending tr oponin likely due to demand ischemia. Transferred to our hospital for further management. He r troponin lane to 0.7 overnight with new TWI, renal function worsened w/Cr 3.58, with hyper kalemia K 6.6. Renal failure likely due to hypoperfusion from hypotension, K and troponin li iman related to renal, cards doesn't want to cath. Pending further improvement. Plan UTI w/ sepsis Hypotensive upon initial presentation, elevated lactate, elevated WBC, dirty UA Blood cultures/urine cultures collected and pending She received Levaquin at outside hospital, will switch to ceftriaxone for now Monitor closely hemodynamic status, fever curve, lactic acid, white count Follow-up on final cultures, tailor antibiotics accordingly Hyperkalemia K 6.6 this morning, likely due to renal failure No characteristic EKG changes Pt given insulin, calcium, albuterol, kayexalate Monitor BMP closely Monitor on telemetry ARF Cr lane to 3.58 Suspect this is effect of hypoperfusion in the context of sepsis and hypotension vs AIN in the context of sepsis Will obtain renal US to r/o hydronephrosis Will work on hemodynamics to ensure adequate perfusion pressure Monitor kidney function closely Avoid nephrotoxins when possible Elevated troponin Mildly elevated non-trending troponin at 0.1->0.11->0.7->0.74 EKG showed TWI in inferior/lateral leads I still believe this is likely demand ischemia in the context of sepsis/hypotension Will further trend troponins Repeat EKG if troponins uptrending Discussed with cardiology Dr Zamora, she would not be a candidate for any type of procedure at this time given her renal failure but her weight would not be feasible to do cath or str ess test for that matter Obtain ECHO Will need aggressive risk factor/lifestyle modification and medical management IDDM On insulin and metformin at home Started basal insulin 16 with moderate supplemental scale Monitor sugars and adjust insulin according to requirements Diabetic diet HTN Now hypotensive in the context of sepsis and hypovolemia Hold antihypertensives Monitor closely BP Reintroduce home meds when BP goes above 150 Hypothyroidism Check TSH Continue home dose levothyroxine at 25 micrograms daily Adjust dose according to TSH Chronic pain She is on chronic opiates for back pain, on contract, taking [place] Demanding meds upon arrival Continue home regimen if BP allows Monitor symptoms DVT prophylaxis: SCD, heparin SQ CODE STATUS: Full code Disposition: Continue inpatient care Subjective CC left knee pain She did well overnight, slept reasonably with some awakenings for vitals and labs, denied c hest pain, difficulty breathing, palpitations, abdominal pain, nausea, vomiting, diarrhea. ROS Constitutional: in no acute distress, afebrile Cardiac: Denies chest pain Pulmonary: Denies shortness of breath GI: Denies abdominal pain, nausea, vomiting : Denies dysuria or hematuria Skin: Inflammatory skin changes in inner thighs Psyche: Alert and oriented, cooperative Exam Constitutional: NAD, afebrile Eye: pupils round, equal, reactive to light, no conjunctivitis nor scleral icterus Neck: Obese neck, no lymphadenopathy, thyromegaly nor masses Cardiac: RRR, S1/S2, quiet heart sounds, no murmurs, rubs or gallops, moderate bilateral 2+ LE edema Lung: non labored breathing, diminished breath sounds, no overt crackles, wheezing or rhonc hi Abdomen: Very obese abdomen, soft, NT, moderately distended, no HSM nor masses, BS + MSK: normal mobility in all four extremities, normal range of motion Skin: no rash, redness and discoloration from inner thighs of both thighs resembling fungal infection, chronic venous stasis changes on both calves Psych: mood and affect normal, oriented x3, appropriate and cooperative Objective Data Vitals Ranges: Temp: [36.3 C (97.3 F)-36.8 C (98.2 F)] 36.7 C (98.1 F) Pulse: [80-86] 85 Resp: [13-22] 16 BP: (74-126)/(47-97) 93/60 Vitals: Temp: 36.7 C (98.1 F) BP: 93/60 Pulse: 85 Resp: 16 SpO2: 93 % SpO2 93 % on nasal cannula at flow rate 2L/min Allergies: Allergies Allergen Reactions Lyrica [Pregabalin] PERIPHERAL EDEMA Current Medications: Current Facility-Administered Medications Medication Dose Route Frequency Provider Last Rate Last Dose aluminum & magnesium hydroxide-simethicone (MAALOX PLUS REGULAR STRENGTH) 200-200-20 mg /5 mL suspension 30 mL 30 mL Oral Q4H PRN Daniel Martínez MD amitriptyline (ELAVIL) tablet 20 mg 20 mg Oral Nightly Daniel Martínez MD atorvaSTATin (LIPITOR) tablet 20 mg 20 mg Oral Nightly Daniel Martínez MD 20 mg at 214 bisacodyl (DULCOLAX) suppository 10 mg 10 mg Rectal Daily PRN Daniel Martínez MD calcium carbonate (TUMS) chewable tablet 1,000 mg 1,000 mg Oral Q4H PRN Daniel Martínez MD cefTRIAXone (ROCEPHIN) 1 g in sodium chloride 0.9% 50 mL IVPB 1 g Intravenous Q24H Malgorzata Martínez MD 100 mL/hr at 10/12/19 2143 1 g at 10/12/19 2143 cholecalciferol (VITAMIN D-3) tablet 1,000 Units 1,000 Units Oral Daily Daneil Martínez MD 1,000 Units at 10/13/19 0837 dextrose 50% injection 12.5-25 g 12.5-25 g Intravenous PRN Daniel Martínez MD And dextrose 10% (D10W) infusion Intravenous Continuous PRN Daniel Martínez MD diclofenac (VOLTAREN) EC tablet 50 mg 50 mg Oral BID Katy Robison PharmSaúl 50 mg at 10/13/19 0837 docusate sodium (COLACE) capsule 100 mg 100 mg Oral BID PRN Daniel Martínez MD ferrous sulfate tablet 325 mg 325 mg Oral Daily with breakfast Daniel Martínez MD 325 mg at 10/13/19 0837 gabapentin (NEURONTIN) capsule 600 mg 600 mg Oral Daily Ari Rangel, Pharmacy Re sident heparin 5,000 units/mL injection 5,000 Units 5,000 Units Subcutaneous Q12H Daniel Palacios i, MD 5,000 Units at 10/13/19 0837 HYDROcodone-acetaminophen (NORCO) 10-325 mg per tablet 1 tablet 1 tablet Oral Q6H PRN Daniel Martínez MD 1 tablet at 10/13/19 0700 insulin glargine (LANTUS SOLOSTAR) injection (pen) 16 Units 0.1 Units/kg/day Subcutane ous Nightly Daniel Martínez MD 16 Units at 10/12/19 2230 insulin lispro (humaLOG KWIKPEN) injection (pen) 0-12 Units 0-12 Units Subcutaneous 4x Daily WC and HS Daniel Martínez MD lactobacillus GG (CULTURELLE) capsule 1 capsule 1 capsule Oral BID Katy R Robison, Pha rmD 1 capsule at 10/13/19 0837 levothyroxine (SYNTHROID) tablet 25 mcg 25 mcg Oral QAM AC Daniel Martínez MD 25 mcg a t 10/13/19 0700 lidocaine (LIDODERM) 5% patch 1 patch 1 patch Transdermal Daily Daniel Martínez MD 1 p atch at 10/12/19 2143 magnesium hydroxide (MILK OF MAGNESIA) 400 mg/5 mL suspension 30 mL 30 mL Oral Nightly PRN Daniel Martínez MD methocarbamol (ROBAXIN) tablet 750 mg 750 mg Oral 4x Daily Daniel Martínez MD 750 mg a t 10/13/19 0837 metoclopramide (REGLAN) 5 mg/mL injection 5 mg 5 mg Intravenous Q4H PRN Ari Stacy [facility], [place] metoclopramide (REGLAN) tablet 5 mg 5 mg Oral Q4H PRN Ari Rangel, Pharmacy Resi dent miconazole (MICATIN) 2% powder Topical BID Daniel Martínez MD norepinephrine in saline (LEVOPHED) 16 mcg/mL infusion 0-30 mcg/min Intravenous Titrat ed Daniel Martínez MD Stopped at 10/12/192027 ondansetron (ZOFRAN ODT) disintegrating tablet 4 mg 4 mg Oral Q6H PRN Daniel Martínez MD ondansetron (ZOFRAN) injection 4 mg 4 mg Intravenous Q6H PRN Daniel Martínez MD polyethylene glycol (MIRALAX) powder 17 g 17 g Oral Daily PRN Daniel Martínez MD prochlorperazine tablet 10 mg 10 mg Oral Q6H PRN Daniel Martínez MD senna (SENOKOT) tablet 8.6 mg 8.6 mg Oral BID PRN Daniel Martínez MD sodium chloride 0.9% (NS) 1,000 mL bolus Intravenous Once Daniel Martínez MD 500 mL/hr at 10/13/19 0838 sodium chloride 0.9% (NS) 250 mL bolus Intravenous PRN Daniel Martínez MD Current Infusions: dextrose 10% norepinephrine Stopped (10/12/192027) Point of care glucose Recent Labs Lab 10/13/19 0700 10/12/19 2209 POCGLU 132* 164* Labs last 24 hours Recent Results (from the past 24 hour(s)) CBC with Differential Collection Time: 10/12/19 8:40 PM Result Value Ref Range WBC 13.2 (H) 4.0 - 11.0 K/uL RBC 3.81 3.70 - 5.20 M/uL Hemoglobin 12.0 11.5 - 16.0 g/dL Hematocrit 39.1 34.0 - 47.0 % MCV 102.6 (H) 83.0 - 101.0 fL MCH 31.5 28.0 - 35.0 pg MCHC 30.7 (L) 32.0 - 36.0 g/dL RDW-CV 14.7 <15.0 % RDW-SD 55.3 (H) 35.1 - 46.3 fL Platelet Count 154 140 - 440 K/uL MPV 11.9 6.5 - 12.4 fL Immature Platelet Fraction 4.0 0.9 - 11.2 % % Neutrophils 82.4 (H) 45.0 - 82.0 % % Lymphocytes 10.5 (L) 20.0 - 45.0 % % Monocytes 5.7 4.0 - 12.0 % % Eosinophils 0.4 0.0 - 5.0 % % Basophils 0.5 0.0 - 1.0 % % Immature Granulocytes 0.5 (H) 0.0 - 0.4 % Absolute Neutrophils 10.86 (H) 1.80 - 8.50 K/uL Absolute Lymphocytes 1.38 0.60 - 3.20 K/uL Absolute Monocytes 0.75 0.00 - 1.00 K/uL Absolute Eosinophils 0.05 0.00 - 0.40 K/uL Absolute Basophils 0.06 0.00 - 0.10 K/uL Absolute Immature Granulocytes 0.06 (H) 0.00 - 0.03 K/uL % nRBC 0 0 - 2 per 100 WBCs Absolute nRBC 0.00 0.00 - 0.01 K/uL Basic Metabolic Panel Collection Time: 10/12/19 8:40 PM Result Value Ref Range Na 138 136 - 145 mmol/L K 6.6 (HH) 3.4 - 5.1 mmol/L Cl 111 (H) 98 - 107 mmol/L CO2 15 (L) 20 - 31 mmol/L Anion Gap 12 3 - 16 mmol/L Glucose 181 (H) 60 - 106 mg/dL BUN 42 (H) 9 - 23 mg/dL Creatinine 3.30 (H) 0.55 - 1.02 mg/dL eGFR if not 14 (L) >=60 mL/min/1.73m2 Calcium 7.8 (L) 8.7 - 10.4 mg/dL BUN/Creatinine Ratio 12.7 Hepatic Function Panel Collection Time: 10/12/19 8:40 PM Result Value Ref Range Bilirubin Total 0.2 (L) 0.3 - 1.2 mg/dL Total Protein 6.5 5.7 - 8.2 g/dL Albumin 3.3 3.2 - 4.8 g/dL AST 56 (H) 0 - 34 U/L ALT 20 10 - 49 U/L Alkaline Phosphatase 184 (H) 46 - 116 U/L Globulin 3.2 2.1 - 3.8 g/dL Albumin/Globulin Ratio 1.0 0.8 - 1.9 Bilirubin, Direct 0.10 0.00 - 0.30 mg/dl POC Glucose Collection Time: 10/12/19 10:09 PM Result Value Ref Range Glucose, POC 164 (H) 70 - 109 mg/dL Electrolyte panel Collection Time: 10/12/19 10:30 PM Result Value Ref Range Na 136 136 - 145 mmol/L K 5.6 (H) 3.4 - 5.1 mmol/L Cl 107 98 - 107 mmol/L CO2 20 20 - 31 mmol/L Anion Gap 9 3 - 16 mmol/L Lactic Acid Collection Time: 10/12/19 10:31 PM Result Value Ref Range Lactate 1.9 0.5 - 2.2 mmol/L Troponin I Collection Time: 10/13/19 12:00 AM Result Value Ref Range Troponin I 0.70 (HH) <0.06 ng/mL Basic Metabolic Panel Collection Time: 10/13/19 3:55 AM Result Value Ref Range Na 137 136 - 145 mmol/L K 6.6 (HH) 3.4 - 5.1 mmol/L Cl 107 98 - 107 mmol/L CO2 20 20 - 31 mmol/L Anion Gap 10 3 - 16 mmol/L Glucose 149 (H) 60 - 106 mg/dL BUN 43 (H) 9 - 23 mg/dL Creatinine 3.54 (H) 0.55 - 1.02 mg/dL eGFR if not 13 (L) >=60 mL/min/1.73m2 Calcium 7.9 (L) 8.7 - 10.4 mg/dL BUN/Creatinine Ratio 12.1 CBC no Differential Collection Time: 10/13/19 3:55 AM Result Value Ref Range WBC 11.4 (H) 4.0 - 11.0 K/uL RBC 3.66 (L) 3.70 - 5.20 M/uL Hemoglobin 11.6 11.5 - 16.0 g/dL Hematocrit 38.6 34.0 - 47.0 % MCV 105.5 (H) 83.0 - 101.0 fL MCH 31.7 28.0 - 35.0 pg MCHC 30.1 (L) 32.0 - 36.0 g/dL RDW-CV 14.6 <15.0 % RDW-SD 57.0 (H) 35.1 - 46.3 fL Platelet Count 173 140 - 440 K/uL MPV 11.6 6.5 - 12.4 fL % nRBC 0 0 - 2 per 100 WBCs Absolute nRBC 0.00 0.00 - 0.01 K/uL Magnesium Collection Time: 10/13/19 3:55 AM Result Value Ref Range Magnesium 1.6 1.6 - 2.6 mg/dL Protime INR Collection Time: 10/13/19 3:55 AM Result Value Ref Range Prothrombin Time 15.3 (H) 11.3 - 13.9 seconds INR 1.1 0.9 - 1.1 Lactic Acid Collection Time: 10/13/19 3:55 AM Result Value Ref Range Lactate 1.4 0.5 - 2.2 mmol/L Troponin I Collection Time: 10/13/19 6:10 AM Result Value Ref Range Troponin I 0.74 (HH) <0.06 ng/mL Extra Lavender Top Tube Collection Time: 10/13/19 6:10 AM Result Value Ref Range Extra Lavender Top Tube Done POC Glucose Collection Time: 10/13/19 7:00 AM Result Value Ref Range Glucose, POC 132 (H) 70 - 109 mg/dL ECG 12 lead Collection Time: 10/13/19 8:36 AM Result Value Ref Range INTERPRETATION TEXT Not Confirmed Micro results (more choices using dot micro) Microbiology Results (72 hrs) Procedure Component Value Units Date/Time Culture, MRSA [[id number]] Collected: 10/12/19 183 Order Status: Sent Lab Status: In process Updated: 10/12/191904 Specimen: Tissue from Nares Radiology results: US renal pending results Daniel Martínez MD Portions of this chart may have been created with [employer] voice recognition software. Occasi onal wrong-word or sound-alike substitutions may have occurred due to the inherent norris itations of voice recognition software. Please read the chart carefully and recognize, using context, where these substitutions have occurred Katy Tellez, PharmD - 10/13/2019 6:42 AM PDT RENAL DOSE ADJUSTMENT PER PHARMACY PROTOCOL: Subjective/Objective: Norbert Mckay is a 58 y.o. year old female admitted on 10/12/2019 5:57 PM and is receiv ing METOCLOPRAMIDE IV and PO and GABAPENTIN and DICLOFENAC ER. BP 102/62 | Pulse 82 | Temp 36.8 C (98.2 F) (Oral) | Resp 17 | Ht 1.626 m (5' 4") | Wt (!) 158.8 kg (350 lb 1.5 oz) | SpO2 98% | BMI 60.09 kg/m No intake or output data in the 24 hours ending 10/13/19 0642 Recent Labs Lab 10/13/19 0355 10/12/192039 CREA 3.54* 3.30* Estimated Creatinine Clearance: 27 mL/min (A) (based on SCr of 3.54 mg/dL (H)). Metoclopramide: Date Day of therapy Creatinine CrCl (mL/min) Dose-current Dose-new 10/12/19 1 3.30 29 10 mg q4hr prn 5 mg q4hr PRN 10/13/19 2 3.54 27 5 mg q5h PRN (same) Gabapentin: Date Day of therapy Creatinine CrCl (mL/min) Dose-current Dose-new 10/12/19 1 (TOBACCO DIPPER) 3.30 29 600 mg q6hr 600 mg q24hr 10/13/19 2 3.54 27 600 mg q24h (same) Diclofenac ER: Date Day of therapy Creatinine CrCl (mL/min) Dose-current Dose-new 10/13/19 2 (TOBACCO DIPPER) 3.54 27 75 mg BID 50 mg BID Assessment/Plan: 1. For creatinine clearance <50 mL/min, decrease dose of METOCLOPRAMIDE as above. 2. For creatinine clearance 15-29 mL/min, increase interval of GABAPENTIN as above. 3. For creatinine clearance 10-50 mL/min, decrease dose of DICLOFENAC as above. 4. Pharmacy will continue to follow and adjust dose as appropriate to clinical condition an d creatinine clearance changes RENAL DOSE ADJUSTMENT PROTOCOL Electronically signed by: Katy Robison PharmD 10/13/2019 6:42 AM PDT erKaty dudley PharmD - 10/13/2019 6:35 AM PDTPharmacy Services Probiotic protocol initiated for qualifying patients if the patient has been on antibiotics for <72 hours and after inclusion/exclusion criteria assessed. If the patient has been on a ntibiotics for >72 hours probiotics will not be initiated, despite meeting inclusion/exclusi on criteria. Inclusion criteria: Patient is Age 1818 years old or older Yes [x] No [] Exclusion criteria: Yes [] No [x] Surgical antibiotic prophylaxis Yes [] No [x] On Vancomycin IV monotherapy Yes [] No [x] Active antibiotics exclusively for CDI treatment Yes [] No [x] Acute pancreatitis Yes [] No [x] Immunocompromised Yes [] No [x] (Neutropenia with ANC <1000, HIV with CD4 count <200,C hemotherapy or radiation, Solid organ transplant, Active hematologic malignancy) Plan: 1. Initiate probiotics per protocol; smartphrase ".rxprobiotics" added to admin instruction s on probiotic order; YES 2. AVS updated with ".rxprobioticdischarge"; YES 3. Enter stop time for 5 days after antibiotics if/when end time established Katy Robison PharmSaúl 10/13/2019 6:35 AM PDT Ari Bruner, [place] - 10/13/2019 12:55 AM PDTFormatting of this note might be different fro m the original. RENAL DOSE ADJUSTMENT PER PHARMACY PROTOCOL: Subjective/Objective: Norbert Mckay is a 58 y.o. year old female admitted on 10/12/2019 5:57 PM and is receiv ing METOCLOPRAMIDE IV and PO BP 95/63 | Pulse 80 | Temp 36.8 C (98.2 F) (Oral) | Resp 16 | Ht 1.626 m (5' 4") | Wt (!) 158.8 kg (350 lb 1.5 oz) | SpO2 93% | BMI 60.09 kg/m No intake or output data in the 24 hours ending 10/13/19 0054 Recent Labs Lab 10/12/192039 CREA 3.30* Estimated Creatinine Clearance: 29 mL/min (A) (based on SCr of 3.3 mg/dL (H)). Date Day of therapy Creatinine CrCl (mL/min) Dose-current Dose-new 10/12/19 1 3.30 29 10 mg q4hr prn 5 mg q4hr PRN Assessment/Plan: For creatinine clearance <50 mL/min, decrease dose of METOCLOPRAMIDE as above. Pharmacy will continue to follow and adjust dose as appropriate to clinical condition and c reatinine clearance changes RENAL DOSE ADJUSTMENT PROTOCOL Electronically signed by: Ari Rangel, [place] 10/13/2019 12:54 AM PDT Ari Cruz, [employer] [place] - 10/13/2019 12:51 AM PDT RENAL DOSE ADJUSTMENT PER PHARMACY PROTOCOL: Subjective/Objective: Norbert Mckay is a 58 y.o. year old female admitted on 10/12/2019 5:57 PM and is receiv ing Gabapentin BP 95/63 | Pulse 81 | Temp 36.8 C (98.2 F) (Oral) | Resp 16 | Ht 1.626 m (5' 4") | Wt (!) 158.8 kg (350 lb 1.5 oz) | SpO2 97% | BMI 60.09 kg/m No intake or output data in the 24 hours ending 10/13/19 0048 Recent Labs Lab 10/12/192039 CREA 3.30* Estimated Creatinine Clearance: 29 mL/min (A) (based on SCr of 3.3 mg/dL (H)). Date Day of therapy Creatinine CrCl (mL/min) Dose-current Dose-new 10/12/19 1 3.30 29 600 mg q6hr 600 mg q24hr Assessment/Plan: For creatinine clearance 15-29 mL/min, increase interval of gabapentin as above. Pharmacy will continue to follow and adjust dose as appropriate to clinical condition and c reatinine clearance changes RENAL DOSE ADJUSTMENT PROTOCOL Electronically signed by: Ari Rangel, [place] 10/13/2019 12:48 AM PDT doc umented in this encounter H&P Notes Daniel Martínez MD - 10/12/2019 6:52 PM PDT [facility] PHYSICAL Patient: Norbert Mckay : 1960: Age: 58 y.o. MedRec: [id number] Admission date: 10/12/2019 Hospital day # : 0 Physician author: Daniel Martínez MD Today: 10/12/2019 CHIEF COMPLAINT: Dizziness, near syncope, poor oral intake HISTORY OF PRESENT ILLNESS: Mrs Mckay is a 58 y/o morbidly obese lady w/pmhx of HTN, HDL, IDDM, MESHA, hypothyroidism c hronic pain syndrome on opioids with contract, vitamin D deficiency who presented to the [facility] with dizziness, near syncopal episode. Patient presented as a transfer from outside h ospital mainly for elevated troponin at 0.1. When she arrived she was hemodynamically stabl e with BP in 120s over 80s off pressors, sats in the 90s on room air, afebrile. Reportedly patient has been feeling dizzy and lightheaded over the past several days, she reported poor oral intake due to not feeling hungry. Other than that she denied fever, chills, headache, cough, sore throat, chest pain, shortness of breath, palpitations, abdominal pain, nausea, vomiting, diarrhea, dysuria hematuria, focal weakness, numbness or tingling. PAST MEDICAL and SURGICAL HISTORY: Past Medical History: Diagnosis Date Acquired hypothyroidism Bilateral knee pain Chronic pain syndrome Closed displaced fracture of distal phalanx of great toe, unspecified laterality, seque la Diabetic peripheral neuropathy (HCC) Hypertensive disorder Iron deficiency anemia Mixed hyperlipidemia Morbid obesity (HCC) Pure hyperglyceridemia Type 2 diabetes, uncontrolled, with neuropathy (HCC) Vitamin D deficiency Past Surgical History: Procedure Laterality Date BUNIONECTOMY CHOLECYSTECTOMY 04/2005 FAMILY HISTORY: family history includes Alzheimer's disease in her paternal grandmother; Arthritis in her m other; Depression in her sister and sister; Diabetes in her sister; Kidney disease in her ma ternal grandmother; Lung cancer in her father; No known problems in her maternal grandfather and paternal grandfather; Other (see comment) in her brother and maternal grandmother; Stro ke in her mother. SOCIAL HISTORY: reports that she has never smoked. She has never used smokeless tobacco. She reports curre nt alcohol use. She reports that she does not use drugs. REVIEW OF SYSTEMS: Constitutional: in no acute distress, afebrile Head and neck: negative, except as stated in H&P Cardiac: negative, except as stated in H&P Pulmonary: negative, except as stated in H&P GI: negative, except as stated in H&P : negative, except as stated in H&P Skin: negative, except as stated in H&P Psyche: negative, except as stated in H&P Musculoskeletal: negative, except as stated in H&P Neuro: negative, except for as stated in H&P HOME MEDICATIONS: PT REPORTED TAKING NOT TAKING Medication Sig Last Dose Dispense Doc. Provider amitriptyline (ELAVIL) 10 mg tablet Take 20 mg by mouth nightly. Taking Historical Provid erMD cholecalciferol (VITAMIN D-3) 1,000 units capsule Take 1,000 Units by mouth Daily. Taking Historical Provider, cholecalciferol (VITAMIN D-3) 5000 units TABS Take 5,000 Units by mouth Daily. Taking His torical Provider, diclofenac (VOLTAREN) 75 mg EC tablet Take 75 mg by mouth 2 times daily. Taking Rosendo l ProviderMD ferrous sulfate 325 mg tablet Take 325 mg by mouth daily (with breakfast). Taking Simone shelly ProviderMD gabapentin (NEURONTIN) 300 mg capsule Take 600 mg by mouth 4 times daily. Taking Henry adkins ProviderMD hydrochlorothiazide (HYDRODIURIL) 12.5 MG tablet Take 12.5 mg by mouth Daily. Taking Maximo Hsu MD HYDROcodone-acetaminophen (NORCO) 10-325 mg per tablet Take 1 tablet by mouth every 6 hour s as needed for Pain. Taking Edgardo ProviderMD insulin aspart protamine-insulin aspart (NOVOLOG MIX 70/30 FLEXPEN) 100 units/mL injection pen Inject 35-45 Units under the skin 2 times daily (with breakfast & dinner). Taking Maximo Hsu MD levothyroxine (SYNTHROID, LEVOTHROID) 25 mcg tablet Take 25 mcg by mouth every morning (be fore breakfast). Taking Edgardo ProviderMD losartan (COZAAR) 50 mg tablet Take 50 mg by mouth Daily. Taking Historical ProviderMD lovastatin (MEVACOR) 20 mg tablet Take 20 mg by mouth nightly. Taking Edgardo Provider MD metFORMIN (GLUCOPHAGE) 500 mg tablet Take 500 mg by mouth daily (with breakfast). Taking Historical ProviderMD methocarbamol (ROBAXIN) 750 mg tablet Take 750 mg by mouth 4 times daily. Taking Henry adkins ProviderMD Multiple Vitamin (THERAGRAN PO) Take 1 tablet by mouth Daily. Taking Historical ProviderMD UNABLE TO FIND Twice daily as needed. Med Name: Bio freeze Taking Jermaine Centeno ALLERGIES: Allergies Allergen Reactions Lyrica [Pregabalin] PERIPHERAL EDEMA VITAL SIGNS: Temp: 36.7 C (98.1 F), Pulse: 85, Resp: 20, BP: (!) 126/97, SpO2 (!) 89 % on nasal carley rachel at flow rate 3L/min Temp Min: 36.7 C (98.1 F) Max: 36.7 C (98.1 F) Weight: (!) 158.8 kg (350 lb 1.5 oz) PHYSICAL EXAMINATION: Constitutional: NAD, afebrile Eye: pupils round, equal, reactive to light, no conjunctivitis nor scleral icterus ENT: unremarkable oral ear and nose Neck: Obese neck, no lymphadenopathy, thyromegaly nor masses Cardiac: RRR, S1/S2, quiet heart sounds, no murmurs, rubs or gallops, moderate bilateral 2+ LE edema Lung: non labored breathing, diminished breath sounds, no overt no crackles, wheezing or rh onchi Abdomen: Very obese abdomen, soft, NT, moderately distended, no HSM nor masses, BS + MSK: normal mobility in all four extremities, normal range of motion Skin: no rash, redness and discoloration from inner thighs of both thighs resembling fungal infection Neuro: Face symmetric, tongue midline, stock fitter equal, no pronator drift, motor and sensory int act throughout Psych: mood and affect normal, oriented x3, appropriate and cooperative DIAGNOSTIC STUDIES: Lab results last 24 hours From outside facility, WBC 12.2, lactic acid 2.8, troponin 0.1-> 0.1 Micro results (more choices using dotmicro) I reviewed imaging. EKG Results (I reviewed EKG). I reviewed and summarized old records. ASSESSMENT: This is a 58 y/o morbidly obese lady w/pmhx of HTN, HDL, IDDM, MESHA, hypothyroidism chronic pain syndrome on opioids with contract, vitamin D deficiency who presented to the hospital w ith dizziness, near syncopal episode. Evaluation at outside hospital revealed hypotension, elevated white count, elevated lactic acid, elevated troponin with no acute EKG changes, dir ty UA. Patient was diagnosed with sepsis source UTI, mildly elevated non-trending troponin likely due to demand ischemia. The hospitalist at outside hospital refused to admit the pat ient due to no cardiology service on side, despite no need for fire fighting equipment specialist at this time any way. She was transferred to our hospital for further evaluation and management. PLAN: UTI w/ sepsis Hypotensive upon initial presentation, elevated lactate, elevated WBC, dirty UA Blood cultures/urine cultures collected and pending She received Levaquin at outside hospital, will switch to ceftriaxone for now Monitor closely hemodynamic status, fever curve, lactic acid, white count Follow-up on final cultures, tailor antibiotics accordingly Elevated troponin Mildly elevated non-trending troponin at 0.1->0.11 No acute ischemic EKG changes, no chest pain Likely demand ischemia in the context of sepsis/hypotension Trend further troponins Repeat EKG if troponins uptrending, consult with cardiology Obtain ECHO If troponins non-trending may need recertification prior to discharge IDDM On insulin and metformin at home We will start basal insulin 16 with moderate supplemental scale Monitor sugars and adjust insulin according to requirements Diabetic diet HTN Now hypotensive in the context of sepsis and hypovolemia Hold antihypertensives Monitor closely BP Reintroduce home meds when BP goes above 150 Hypothyroidism Check TSH Continue home dose levothyroxine at 25 micrograms daily Adjust dose according to TSH Chronic pain She is on chronic opiates for back pain, on contract,, taking [place] Demanding meds upon arrival Continue home regimen if BP allows Monitor symptoms DVT prophylaxis: SCD, heparin SQ CODE STATUS: Full code Disposition: Admit to inpatient care CMS Documentation I expect this patient will be hospitalized for greater than 2 midnights and expect the post -hospital plan to be discharged to home with . Electronically signed by: Daniel Martínez MD 10/12/2019 6:52 PM PDT [facility] Portions of this chart may have been created with [employer] voice recognition software. Occasi onal wrong-word or sound-alike substitutions may have occurred due to the inherent norris itations of voice recognition software. Please read the chart carefully and recognize, using context, where these substitutions have occurred documented in this enco unter Procedure Notes Daniel Martínez MD - 10/13/2019 11:28 AM PDTProcedure(s): LINE:ARTERIAL LINE PLACEMENTDaniel st MD 10/13/2019 11:00 AM Arterial Line Placement Patient: Norbert Mckay Indication: continuous blood pressure monitoring Prep solution: chlorhexidine/isoproplyl alcohol Patient was: awake Pain prevention: 1% lidocaine infiltration Laterality: left Artery:radial Size: 20 g Localization technique: ultrasound LDA Ultrasound Image Securement: transparent dressing, sterile tape strips, sutures, tape and arm board Performed by: Daniel Martínez MD Authorizing provider: Daniel Martínez MD Comments: No complications Patient ID confirmed prior to procedure. After a brief safety pause, patient's wrist over the radial artery was prepped with chloropep and allowed to dry. Blue, sterile drape from kit was used to construct a sterile field. Ultrasound was used to identify the radial artery vessel. It was assessed and patent. US was used to visualize vascular needle entry into the radial artery vessel. The catheter was thread easily over the wire with return of blood and good arterial wave on the monitor. Line was secured to the skin with a single suture. The s elected vessel appeared anatomically normal and there were no apparent abnormal findings. Site was cleaned, dried and sterile dressing was placed to secure the line. No current complications visualized from arterial catheter placement. Daniel Martínez MD documented in this enco unter Miscellaneous Notes Plan of Care - Emerita Zhu - 10/16/2019 3:38 PM PDTFaxed discharge summary and AVS to Prashant nava. Electronically signed by: Emerita Zhu 10/16/2019 3:39 PM PDT lan of Care - Swati Aguilar OT - 10/16/2019 1:15 PM PDTFormatting of this note might be different from the origi nal. Occupational Therapy Plan of Care Treatment Note Summary: Norbert has been participating in occupational therapy for treatment of Impaired B ADLs, impaired basic functional mobility, decreased functional activity tolerance, decreased BUE function following admit w/ UTI w/ sepsis; hyperkaemia; ARF; elevated troponins. Pt hall ving progressive weakness, decreased mobility x 1 month w/ dizziness and near syncopal.. Em phasis of session included education about energy conservation and concerns for home. Pt dec lined to participate in active activities due to pain in her feet and waiting for pain medic ation to kick in. Patient demonstrates progress towards functional goals as evidenced by in creasing independence with ADLs. RN cleared patient for participation in therapy. Patient was agreeable to therapy. RN debri efed on therapy session and patient status. Patient is encouraged to ambulate into hallway w [facility] nursing staff. Recommended toileting with nursing: Day Night toilet toilet Front Wheel Walker Front Wheel Walker contact guard assistance contact guard assistance Remaining barriers to discharge and functional limitations include decreased insight into s afety and deficits, decreased functional activity tolerance, decreased functional transfers, and decreased ability to perform ADLs. Norbert will benefit from continued therapeutic intervention to address ongoing impairments a nd increase safety and independence with activities necessary for safe discharge. Refer bel ow for specific details regarding functional levels. Occupational Therapy Discharge Recommendations are: Recommended discharge disposition: home with assist Post discharge occupational therapy recommendation: ongoing low intensity therapy, will be nefit from structured setting Equipment Recommendations: bariatric, 2 wheeled walker (FWW) Planned Interventions:ADL retraining, balance training, bed mobility training, functional e ndurance training, ROM (Range of Motion), strengthening, transfer training, discharge planni ng, patient/family education(edema/wound mgmt prn) Recommended Frequency: 4 times/wk, 5 times/wk Patient Status/Goals: Reflects last filed data and may be from multiple contributors. ADLs Pt reported that she was able to go to the restroom and complete debbi care independently fo r the first time today. Functional Endurance Pt educated on importance of energy conservation techniques and strategies. Transfers Pt declined to participate in transfers or mobility this session, stating that she had a lo t of pain and was waiting for pain medication to kick in. Per RN, pt had been up in room wit h FWW. Pt requested a wide FWW for home use. OT Goal Review Date Most Recent Value STG Review Date 10/20/19 at 10/13/2019 1440 UB Dressing Goal Most Recent Value STG Status continued at 10/15/2019 1109 STG [place] Level stand by assist at 10/13/2019 1440 LB Dressing Goal Most Recent Value STG Status new at 10/15/2019 1109 STG [place] Level contact guard assist at 10/15/2019 1109 Toileting Goal Most Recent Value STG Status new at 10/15/2019 1109 STG [place] Level minimum assist (75% patient effort) at 10/15/2019 1109 Toilet Transfer Goal Most Recent Value STG Status progressing at 10/15/2019 1109 STG [place] Level moderate assist (50% patient effort) at 10/13/2019 1440 ROM Goal Most Recent Value STG Status progressing at 10/15/2019 1109 STG Pt will have WFL BUE ROM to improve completion of ADLs/mobility. at 10/13/2019 1440 Strength Goal Most Recent Value STG Status progressing at 10/15/2019 1109 STG Pt will have grossly 4/5 UE strength to improve completion of ADLs/mobility. at 2019 1440 Additional Goals #1 OT Most Recent Value STG Status continued at 10/14/2019 1114 STG Pt will tolerate compression wrapping up to 24-48 hours to facilitate reduction in ade ma, improve LE function/strength, and ease completion of ADLs. at 10/13/2019 1440 OT Time Calculation OT Individual Start Time: 1305 OT Individual Stop Time: 1315 OT Individual Total Time: 10 OT Total Treatment Time: 10 Timed [place] Code Minutes: 10 Electronically signed by: Jennifer Aguilar OT, 10/16/2019 1:27 PM PDT lan of [facility] - Wagner Gonzalez RN - 10/16/2019 1:14 PM PDTDischarge home when family arrivesElectronically sig ceferino by Wagner Amaral RN at 10/16/2019 1:15 PM PDTPlan of Padilla Rodriguez RRT - 10/16/2019 11:20 AM PDTRobin was 90% on RA with clear BS and unlabored RR 16. lan of [facility] Joan Flowers MSW - 10/15/2019 5:03 PM PDT Problem: Discharge Planning Goal: Patient's discharge needs will be identified in a timely manner Outcome: Ongoing, progressing Goal: Patient will be discharged in a safe manner Outcome: Ongoing, progressing This lead case manager spoke with Norbert to follow up on discharge plans. Norbert states that her p evelyn is to go home with her . She also has a sister who is a SALES AND MARKETING EXECUTIVE who will be helping h er at home. She has another sister as well who is involved and will be providing meals. They all live in [place] on the [facility]. We dicussed a SNF for rehab prior to going home and she strongly declined. She feels she wi ll have the support she needs at home with her family. We dicussed a follow up appointment with her PCP. She is seen at the [facility]. She had Denis Quempts but he transferred to the [facility] so she sees MARTHA Mcmahan. S he states that she trusted Denis and has not had much va in [facility]. She doesn't feel that [facility] can meet her needs however, she would like to follow up with her from here and then look at other options for care. She said she and her are thinking about re-establish ing with Denis and traveling to [place] for her apts--she and her are further discussin g this. This CM called [facility] and spoke with the patient animal caretaker, Vivian Askew, who scheduled Norbert for October 21 at 1:45PM check in time. Vivian would like the CM to fax the d ischarge summary that includes any follow up needs to them. . Norbert states that she would be open to have [facility] RN visits from the [facility] health nurse. This CM was transferred to Gi Carbajal at [facility] and explaine saúl over her voicemail the follow up for this patient. Asked her to call the CM tomorrow with any further questions. Norbert said her will be transporting her home in her sisters car which is easier for her to get in and out of. She uses [facility] pharmacy. PLAN: Home with , PCP follow up appt made, would benefit from community health RN wiliam sits. CM to fax dc summary upon dc. Electronically signed by: TIFFANIE Schneider 10/15/19 5:11 PM PDT lan of [facility] - King Yu Mercy, PT - 10/15/2019 11:10 AM PDTFormatting of this note might be diff erent from the original. Physical Therapy Plan of Care Treatment Note Summary: Norbert has been participating in physical therapy for treatment of impaired funct ional mobility and transfers, grossly decreased strength, and impaired activity tolerance fo llowing admit for UTI with sepsis and hypotension. Emphasis of session included bed mobility and initiation of transfer/gait training with FWW. Co-treat with OT to maximize pt safety a nd participation. Patient demonstrates progress towards functional goals as evidenced by dim inished level of assist with bed mobility as well as ability to perform sit<>stand transfers and ambulate short distance with FWW this session. RN cleared patient for participation in therapy. Patient was agreeable to therapy. Patient participated without adverse reaction. RN debriefed on therapy session and patient status. I t is encouraged that the patient be up in chair for all meals. Recommended mobility with nursing: Day Night bedside commode bedside commode Front Wheel Walker Front Wheel Walker contact guard assistance contact guard assistance Remaining barriers to discharge and functional limitations include decreased insight into s afety and deficits, decreased functional activity tolerance, decreased bed mobility, decreas ed functional transfers, decreased functional gait distance, decreased gait velocity, not ye t able to mobilize at level safe for home discharge, AMPA indicating significant impairment with basic functional mobility, and medical statusHarvinder Toussaint will benefit from continued therapeutic intervention to address ongoing impairments a nd increase safety and independence with activities necessary for safe discharge. Refer bel ow for specific details regarding functional levels. Physical Therapy Discharge Recommendations are: Recommended discharge disposition: prison facility Post discharge physical therapy recommendation: ongoing low intensity therapy, will benefi t from structured setting Equipment Recommendations: bariatric, 2 wheeled walker (FWW) Planned Interventions: balance training, bed mobility training, gait training, home exerci se program, neuromuscular re-education, patient/family education, postural re-education, ROM (Range of Motion), strengthening, transfer training Recommended Frequency: other (see comments)(5-7 times/wk) Patient Status/Goals: Reflects last filed data and may be from multiple contributors. Gait pt with slow effortful gait, light CGA for safety/steadying, cues for sequencing/management of FWW, fatigues quickly Level of Navajo: contact guard assist, verbal cues required Assistive Device: 2 wheeled walker (FWW), bariatric Distance (feet): 5 x 2 Gait Deviations: chata decreased, double stance time increased, limb motion velocity decr eased, step length decreased, pey-bu-uyhym clearance decreased, weight-shifting ability decr eased Safety Issues: balance decreased during turns, sequencing ability decreased, step length de creased, weight-shifting ability decreased Impairments: decreased flexibility, ROM decreased, strength decreased, impaired balance, co ordination impaired, postural control impaired, other (see comments)(decreased activity tole krystle) Transfers increased time/effort, cues for hand placement and proximity to FWW, pt able to stand w/o p hysical assist, 2nd person present for safety, limited standing tolerance (1-2 min) Bed-Chair, Level of [place]: contact guard assist, set up required, verbal cues requir ed, tactile cues required Chair-Bed, Level of [place]: contact guard assist, set up required, verbal cues requir ed, tactile cues required [id number], Assistive Device: 2 wheeled walker (FWW), bariatric Sit-Stand, Level of [place]: contact guard assist, set up required, verbal cues requir ed, tactile cues required Stand-Sit, Level of [place]: contact guard assist, set up required, verbal cues requir ed, tactile cues required [id number]-[id number]-Lig, Assistive Device: 2 wheeled walker (FWW), bariatric Toilet, Level of Navajo: (see OT note for details of toilet transfer) Safety Issues: balance decreased during turns, sequencing ability decreased, step length de creased, weight-shifting ability decreased, stands too far from assistive device Impairments: decreased flexibility, ROM decreased, strength decreased, impaired balance, co ordination impaired, postural control impaired, other (see comments)(decreased activity tole krystle) Bed Mobility improving although con't to require extensive cues, heavy use of bed features, 2nd person p resent for safety Assistive Device: bed rails, HOB elevated Roll Left, Level of [place]ajo: contact guard assist, set up required, verbal cues requir ed, tactile cues required Roll Right, Level of Navajo: not tested Scoot/Bridge, Level of [place]ajo: contact guard assist, set up required, verbal cues req uired, tactile cues required Sidelying to Sit, Level of [place]: minimal assist (75% patient effort), set up requir ed, verbal cues required, tactile cues required Sit to Sidelying, Level of Navajo: not tested(pt up in chair at end of session) Safety Issues: decreased use of arms for pushing/pulling, decreased use of legs for bridgin g/pushing, impaired trunk control for bed mobility Impairments: decreased flexibility, ROM decreased, strength decreased, coordination impaire d, motor control impaired, other (see comments)(decreased activity tolerance) Balance Sitting Balance: Static: fair balance Sitting Balance: Dynamic: fair balance Standing Balance: Static: (fair-) Standing Balance: Dynamic: (poor+) Functional Endurance fair- for activities presented, pt SOB with min exertion, requires frequent rest breaks and cues for breathing technique, BP stable throughout session PT Goal Review Date Most Recent Value STG Review Date 10/21/19 at 10/14/2019 1051 Roll Left/Right Goal Most Recent Value STG Status revised at 10/15/2019 1110 STG [place] Level modified independent at 10/15/2019 1110 STG Assistive Device bed rails at 10/15/2019 1110 [id number] Goal Most Recent Value STG Status revised at 10/15/2019 1110 STG [place] Level minimum assist (75% patient effort) at 10/15/2019 1110 STG Assistive Device bed rails at 10/15/2019 1110 [id number]-Cme Goal Most Recent Value STG Status revised at 10/15/2019 1110 STG [place] Level modified independent at 10/15/2019 1110 STG Assistive Device 2 wheeled walker (FWW), bariatric at 10/15/2019 1110 Gait Goal Most Recent Value STG Status revised at 10/15/2019 1110 STG [place] Level modified independent at 10/15/2019 1110 STG Assistive Device 2 wheeled walker (FWW), bariatric at 10/15/2019 1110 STG Distance (feet) 25 at 10/15/2019 1110 PT Time Calculation Individual Start Time: 1015 Individual Stop Time: 1018 Individual Total Time: 3 PT Additional Treatment Time: Co-treatment PT Co-treatment Start Time: 1018 PT Co-treatment Stop Time: 1110 PT Co-treatment Total Time: 52 PT Total Treatment Time: 55 Timed [place] Code Minutes: 30 Electronically signed by: Yu Camejo PT, 10/15/2019 11:45 AM PDT lan of Care - Julita High, OT - 020 11:09 AM PDT Occupational Therapy Plan of Care Treatment Note Summary: Norbert has been participating in occupational therapy for treatment of Impaired B ADLs, impaired basic functional mobility, decreased functional activity tolerance, decreased BUE function following admit w/ UTI w/ sepsis; hyperkaemia; ARF; elevated troponins. Pt hall ving progressive weakness, decreased mobility x 1 month w/ dizziness and near syncopal.. Em phasis of session included ADls; functional mobility; safety awareness; activity tolerance. Patient demonstrates progress towards functional goals as evidenced by much improved in mob ility today- able to mobilize from bed, complete light ADLs OT/PT discussed w/ pt concerns regarding her lack of strength, activity tolerance, deficits in mobility and ADLs. Offered that she may benefit from further rehab intervention prior to d/c home. Pt declines SNF and wishes "homework" to do and Home Health. RN cleared patient for participation in therapy. Patient was agreeable to therapy. Patient participated without adverse reaction. RN debriefed on therapy session and patient status. I t is encouraged that the patient be up in chair for all meals. Recommended toileting with nursing: Day Night bedside commode bedside commode Front Wheel Walker Front Wheel Walker with 2 people with 2 people Remaining barriers to discharge and functional limitations include decreased insight into s afety and deficits, decreased functional activity tolerance, decreased bed mobility, decreas ed functional transfers, decreased ability to perform IADLs, unsafe discharge disposition, n ot yet able to mobilize at level safe for home discharge, and medical status. Norbert will benefit from continued therapeutic intervention to address ongoing impairments a nd increase safety and independence with activities necessary for safe discharge. Refer bel ow for specific details regarding functional levels. Occupational Therapy Discharge Recommendations are: Recommended discharge disposition: prison facility Post discharge occupational therapy recommendation: ongoing low intensity therapy, will be nefit from structured setting Equipment Recommendations: bariatric, 2 wheeled walker (FWW) Planned Interventions:ADL retraining, balance training, bed mobility training, functional e ndurance training, ROM (Range of Motion), strengthening, transfer training, discharge planni ng, patient/family education(edema/wound mgmt prn) Recommended Frequency: 4 times/wk, 5 times/wk Patient Status/Goals: Reflects last filed data and may be from multiple contributors. ADLs Transfer to commode. Successful in having BM, unable to manage hygiene- body habitus, decr eased strength and endurance Toileting, Level of Navajo: 2 person assist required, maximal assist (25% patient eff ort), verbal cues required Assistive Device: bariatric bedside commode Toileting Assess/Train, Position: sitting, standing Toileting Impairments: decreased flexibility, strength decreased, impaired balance, postura l control impaired, impaired functional endurance/activity tolerance Functional Endurance Improved but still very limited. Able to mobilize from bed and complete transfer to chair & commode. Needed frequent rest breaks. BP stable. Cognitive Requires time to process, specific instruction. Has excuse for most of suggestions made by therapy as to why she can't or it is difficult. Decreased accountability for her curent sit uation. Bed Mobility Requires extensive time, heavy use of bed features. Pt circular @ times in her thought pro cess. Co-treat w/ PT d/t extensive mobility needs, safety. See PT note for further info on status of bed mobility. Transfers Extensive time/effort. Pt requires specific cues and direction @ times. Fatigues very johnie ckly, SOB but states can't pursed lip breath because "there's stuff in there." Assist w/ FWW mgmt. Toilet, Level of [place]ajo: 1 person + 1 person to manage equipment, moderate assist (50 % patient effort), verbal cues required, tactile cues required, set up required Toilet, Assistive Device: bariatric, 2 wheeled walker (FWW), commode (3 in 1) Safety Issues: balance decreased during turns, sequencing ability decreased, step length de creased, weight-shifting ability decreased, stands too far from assistive device Impairments: decreased flexibility, ROM decreased, strength decreased, impaired balance, co ordination impaired, postural control impaired(decreased activity tolerance) ROM From supine L UE ROM: Sitting upright ROM is WFL but effortful R UE ROM: Sitting upright ROM is WFL but effortful Strength Generalized weakness, prolonged decline in overall functional abilities. L UE Strength: Grossly 3-/5 shoulder, grossly 3+/5 other mvmts R UE Strength: Grossly 3-/5 shoulder, grossly 3+/5 other mvmts OT Goal Review Date Most Recent Value STG Review Date 10/20/19 at 10/13/2019 1440 UB Dressing Goal Most Recent Value STG Status continued at 10/15/2019 1109 STG [place] Level stand by assist at 10/13/2019 1440 LB Dressing Goal Most Recent Value STG Status new at 10/15/2019 1109 STG [place] Level contact guard assist at 10/15/2019 1109 Toileting Goal Most Recent Value STG Status new at 10/15/2019 1109 STG [place] Level minimum assist (75% patient effort) at 10/15/2019 1109 Toilet Transfer Goal Most Recent Value STG Status progressing at 10/15/2019 1109 STG [place] Level moderate assist (50% patient effort) at 10/13/2019 1440 ROM Goal Most Recent Value STG Status progressing at 10/15/2019 1109 STG Pt will have WFL BUE ROM to improve completion of ADLs/mobility. at 10/13/2019 1440 Strength Goal Most Recent Value STG Status progressing at 10/15/2019 1109 STG Pt will have grossly 4/5 UE strength to improve completion of ADLs/mobility. at 2019 1440 Additional Goals #1 OT Most Recent Value STG Status continued at 10/14/2019 1114 STG Pt will tolerate compression wrapping up to 24-48 hours to facilitate reduction in ade ma, improve LE function/strength, and ease completion of ADLs. at 10/13/2019 1440 OT Time Calculation OT Additional Treatment Time: Co-treatment OT Co-treatment Start Time: 1018 OT Co-treatment Stop Time: 1110 OT Co-treatment Total Time: 52 OT Total Treatment Time: 52 Timed [place] Code Minutes: 22 Electronically signed by: Julita High, OT, 10/15/2019 6:25 PM PDT lan of [facility] Cinthia Lord RN - 10/15/2019 4:30 AM PDTPt transferred to room [facility] via bed. A&Ox4. Using call light appropriately. Reports left knee and lower back pain, requests [place] as needed. LSC dim to bases. 1-2L O2 via N/C through noc. Orozco in place-clear yellow urine. LBM 10/13. NICOLASA midline CDI. SL x 2 to bilat forearms. Rash continues to breasts and pannus-pt declined tx at [facility]. Requires 3 assist with skylift for transfers. lan of [facility] Ro Thomas RN - 10/14/2019 7:20 PM PDTA&Ox4. VSS on 1L O2. [place] effective for chronic L knee/low back pain. LS diminis hed, NSR, distant Heart sounds. Poor appetite. Adequate I/Os, orozco patent. Encouraged activ ity as tolerated, prefers to be on left side. Max ceiling assist, 2-3 person for ADLs cares. Yeast rash under pannus and breasts improving. Art line d/c'd, SBP stable. Levo off since 0 930 today, some dizziness reported with change of HOB, subsides. Fall precautions in place, bed rest. No falls reported. Emotional, teary. at bedside supportive. lan of Care - Hollis Abdul, ACOUSTICAL ENGINEER - 10/14/2019 7:10 PM PDTO2 weaned off. SpO2: 97 % on 1liters/minute nasal cannula(R educed to Room air.) lan of [facility] Clemencia mcclellan OT - 10/14/2019 11:52 AM PDTFormatting of this note might be different from t he original. Patient Identification Norbert Mckay is a 58 y.o. female. : 1960 Admit Date: 10/12/2019 Attending Provider: Daniel Martínez MD WOUND CARE CONSULT Subjective: Reason for Consultation: management recommendations. History of present illness: Mrs Mckay is a 58 y/o morbidly obese lady w/pmhx of HTN, HDL, IDDM, MESHA, hypothyroidism chronic pain syndrome on opioids with contract, vitamin D deficie ncy who presented to the hospital with dizziness, near syncopal episode. Presented with woun ds between her left great and second toes. Objective: Wound on right lateral great toe is approx 0.6cm x 0.6 cm x shallow. Debbi wound is red,naa nchable, and has minimal exudate at this time. Pt reported that she did not know this was pr esent and did not report any discomfort when cleaning it. On the medial second toe there is a macerated area adjacent to the great toe and appears to be open minimally as well. Area is blanchable. Assessment: stage II on the lateral great toe with medial second toe a stage II as well Plan: Wound care for toes: L Lateral great toe - thin hydrocolloid (duoderm) to protect area. L Medial 2nd toe - thin hydrocolloid (duoderm) to protect area. Change every 2 days and as needed. lan of [facility] Julita ibrahim OT - 10/14/2019 11:14 AM PDT Occupational Therapy Plan of Care Treatment Note Summary: Norbert has been participating in occupational therapy for treatment of Impaired B ADLs, impaired basic functional mobility, decreased functional activity tolerance, decreased BUE function following admit w/ UTI w/ sepsis; hyperkalemia; ARF; elevated troponins. Pt h aving progressive weakness, decreased mobility x 1 month w/ dizziness and near syncopal.. E mphasis of session included UE AROM; review of LE edema & proposed treatment intervention/s; family education; functional mobility. Patient demonstrates progress towards functional go als as evidenced by participated w/ OT/PT co-treat; mobility from supine w/ maximal effort. was present and supportive. Reviewed w/ both he and the pt concern regarding the e jonathan in her legs, the lack of sensation and risk of wounds/injury (pt was seen for Wound Con sultation today). Reviewed proposed plan for tomorrow if medically stable- transfer to [facility]. RN cleared patient for participation in therapy. Patient was agreeable to therapy. Patient participated without adverse reaction. RN debriefed on therapy session and patient status. Recommended toileting with nursing: Day Night bedpan bedpan No Assistive Device No Assistive Device with 2 people with 2 people Remaining barriers to discharge and functional limitations include decreased insight into s afety and deficits, decreased functional activity tolerance, decreased bed mobility, decreas ed functional transfers, decreased ability to perform ADLs, decreased ability to perform IAD Ls, unsafe discharge disposition, not yet able to mobilize at level safe for home discharge, and medical status. Norbert will benefit from continued therapeutic intervention to address ongoing impairments a nd increase safety and independence with activities necessary for safe discharge. Refer bel ow for specific details regarding functional levels. Occupational Therapy Discharge Recommendations are: Recommended discharge disposition: prison facility Post discharge occupational therapy recommendation: ongoing low intensity therapy, will be nefit from structured setting Equipment Recommendations: wheelchair, mechanical lift Planned Interventions:ADL retraining, balance training, bed mobility training, functional e ndurance training, ROM (Range of Motion), strengthening, transfer training, discharge planni ng, patient/family education(edema/wound mgmt prn) Recommended Frequency: 4 times/wk, 5 times/wk Patient Status/Goals: Reflects last filed data and may be from multiple contributors. ADLs Set-up to manage denture plates, use mouthwash. Pt removed them to container after removin g extensive adhesive, then wiped gums for same. Will progress to sitting upright and managi ng own set-up as able. Grooming, Level of Navajo: set up required, stand by assist Grooming Assess/Train, Position: (partially sitting in bed.) Grooming Impairments: ROM decreased, strength decreased, motor control impaired, impaired f unctional endurance/activity tolerance Functional Endurance Poor. Pt w/ some level of anxiety/apprehension needing time to process. Became lightheade d (?) when HOB lowered for bed mobility (not to flat). Cues for pursed lip breathing and not to hold breath. Also somewhat self-limiting. Cognitive Wants "homework," but is also self-limiting Bed Mobility 3-person assist to manage complex mobility needs, extra time and equipment mgmt. Co-treatm ent w/ PT for same. See PT note for further info on status of bed mobility. Transfers Not medically appropriate to assess this session ROM From supine L UE ROM: 130* Shoulder flexion, other mvmts WFL R UE ROM: WFL from supine Strength Generalized weakness, prolonged decline in overall functional abilities. L UE Strength: Grossly 3-/5 shoulder, grossly 3+/5 other mvmts R UE Strength: Grossly 3-/5 shoulder, grossly 3+/5 other mvmts OT Goal Review Date Most Recent Value STG Review Date 10/20/19 at 10/13/2019 1440 UB Dressing Goal Most Recent Value STG Status continued at 10/14/2019 1114 STG Navajo Level stand by assist at 10/13/2019 1440 Toilet Transfer Goal Most Recent Value STG Status continued at 10/14/2019 1114 STG [place]ajo Level moderate assist (50% patient effort) at 10/13/2019 1440 ROM Goal Most Recent Value STG Status progressing at 10/14/2019 1114 STG Pt will have WFL BUE ROM to improve completion of ADLs/mobility. at 10/13/2019 1440 Strength Goal Most Recent Value STG Status progressing at 10/14/2019 1114 STG Pt will have grossly 4/5 UE strength to improve completion of ADLs/mobility. at 2019 1440 Additional Goals #1 OT Most Recent Value STG Status continued at 10/14/2019 1114 STG Pt will tolerate compression wrapping up to 24-48 hours to facilitate reduction in ade ma, improve LE function/strength, and ease completion of ADLs. at 10/13/2019 1440 OT Time Calculation OT Additional Treatment Time: Co-treatment OT Co-treatment Start Time: 1023 OT Co-treatment Stop Time: 1114 OT Co-treatment Total Time: 51 OT Total Treatment Time: 51 Timed [place] Code Minutes: 36 Electronically signed by: Julita High OT, 10/14/2019 3:39 PM PDT lan of Care - Kin Yu odom, PT - 10/14/2019 10:51 AM PDT Physical Therapy Plan of Care Initial Evaluation Note Summary: Norbert presents to physical therapy with impaired functional mobility and transfe rs, grossly decreased strength, and impaired activity tolerance following admit for UTI with sepsis and hypotension. Objective exam reveals impairments with aerobic capacity/endurance, anthropometric characteristics, arousal, attention, and cognition, ergonomics and body mech anics, functional endurance/activity tolerance, gait, locomotion, and balance, joint integri ty and mobility, motor function, muscle performance, neuromotor, and ROM. Co-evaluation with OT d/t complex medical status and limited capacity for functional activities. Pt recently w eaned off pressors for BP support. She was able to participate in light bed mobility with 2- 3P assist (see below for details). Further mobility deferred today d/t medical/safety concer ns. Plan to trial overhead lift transfer to chair tomorrow if medically appropriate. RN cleared patient for participation in therapy. Patient was agreeable to therapy. Patient participated without adverse reaction. RN debriefed on therapy session and patient status. Recommended mobility with nursing: Day Night bed vieyra bed vieyra No Assistive Device No Assistive Device with 2 people with 2 people Barriers to discharge and functional limitations include decreased functional activity tole krystle, decreased bed mobility, decreased functional transfers, decreased functional gait dis tance, not yet able to mobilize at level safe for home discharge, [facility] indicating significa nt impairment with basic functional mobility, and medical status. Norbert will benefit from therapeutic intervention to address impairments and increase safety and independence with activities necessary for safe discharge. Refer below for specific de tails regarding functional levels. Precautions/Limitations: falls Previous Level of Function: For the last month she has steadily declined in her abilities- has not left the house for t he last month, even to go outside. Has been able to walk between office, bathroom, and bedr oom only. Gait w/ quad cane in the house, w/ difficulty. 4WW when outdoors. assists to put socks on, if she wears them. Has been able to manage to dress herself, toilet, comp lete shower- but all have been steadily getting more difficult to complete. Potential available assistance at discharge: Significant Relationships: spouse Provides Primary Care For: pet(s)(2 dogs- [place] Coley, mixed breed Pitbull, Lab. ) Role Relationships Comment: Spouse present and supportive, works for[employer]. 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 Living Environment/Accessibility: Lives With: spouse Living Arrangements: house Home Accessibility: ramps present at home, grab bars present (bathtub) Number of Stairs to Enter Home: 0(w/c ramp) Number of Stairs Within Home: 0 Living Environment Comment: Tub w/ tub transfer bench Patient/Family s Goals: return home Rehabilitation potential: fair, will monitor progress closely Physical Therapy Discharge Recommendations are: Recommended discharge disposition: prison facility Post discharge physical therapy recommendation: ongoing low intensity therapy, will benefi t from structured setting Equipment Recommendations: other (see comments)(TBD) Planned Interventions: balance training, bed mobility training, gait training, home exerci se program, neuromuscular re-education, patient/family education, postural re-education, ROM (Range of Motion), strengthening, transfer training Recommended Frequency: other (see comments)(5-7 times/wk) Patient Status/Goals: Reflects last filed data and may be from multiple contributors. Gait not appropriate to assess this session Transfers not appropriate to assess this session Bed Mobility requires extensive cues and physical assist to scoot hips side to side, increased difficult y rolling to right vs. left side, overhead lift required for scooting pt up in bed, limited by gross weakness/deconditioning and body habitus Assistive Device: bed rails, HOB elevated, draw sheet, other (see comments)(overhead lift) Roll Left, Level of [place]: minimal assist (75% patient effort), 2 person assist requ ired, set up required, verbal cues required, tactile cues required Roll Right, Level of [place]: moderate assist (50% patient effort), 2 person assist re quired, set up required, verbal cues required, tactile cues required Scoot/Bridge, Level of [place]ajo: maximal assist (25% patient effort), 2 person assist r equired, set up required, verbal cues required, tactile cues required Safety Issues: decreased use of arms for pushing/pulling, decreased use of legs for bridgin g/pushing, impaired trunk control for bed mobility Impairments: decreased flexibility, ROM decreased, strength decreased, coordination impaire d, motor control impaired, other (see comments)(decreased activity tolerance) Functional Endurance poor, pt SOB and fatigued with min bed mobility, requires frequent rest breaks and needs cu es for breathing technique ROM L LE ROM: limited throughout d/t body habitus R LE ROM: limited throughout d/t body habitus Strength L LE Strength: poor, grossly 3-/5 throughout R LE Strength: poor, grossly 3-/5 throughout [facility] BASIC MOBILITY Turning from your back to your side while in a flat bed without using bedrails?: dependent/ unable Moving from lying on your back to sitting on the side of a flat bed without using bedrails? : dependent/unable Standing up from a chair using your arms (e.g. wheelchair, or bedside chair)?: dependent/un able Moving to and from a bed to a chair (including a wheelchair)?: dependent/unable To walk in a hospital room?: dependent/unable Climbing 3-5 steps with a railing?: dependent/unable Total Basic Mobility Six Click AM-PAC: 6 Completed the [facility] Activity Measure for Post Acute Care (AM-PAC) "6 Clicks" Ba sic Mobility Inpatient Short Form. This version of the AM-PAC is an assessment tool used to measure a person's level of disability in performing basic mobility tasks. Norbert's score i ndicates a performance of 100.00% impairment in the functioning of basic mobility. Raw Score - Functional Limitation % (for CMS) - "Severity Modifier" CN 6 - 100.00 CM 7 - 92.36 8 - 86.62 9 - 81.38 CL 10 - 76.75 11 - 72.57 12 - 68.66 13 - 64.91 14 - 61.29 CK 15 - 57.70 16 - 54.16 17 - 50.57 18 - 46.58 19 - 41.77 CJ 20 - 35.83 21 - 28.97 22 - 20.91 CI 23 - 11.2 24 - 0.00 Predicted Discharge During Acute Hospitalization (Raw Score) Home = 20.1 With assist = 17.9 SNF = 14 IRF = 13.6 LTAC = 11.5 PT Goal Review Date Most Recent Value STG Review Date 10/21/19 at 10/14/2019 1051 Roll Left/Right Goal Most Recent Value STG Status new at 10/14/2019 1051 STG Navajo Level stand by assist at 10/14/2019 1051 STG Assistive Device bed rails at 10/14/2019 1051 [id number] Goal Most Recent Value STG Status new at 10/14/2019 1051 STG [place] Level minimum assist (75% patient effort) at 10/14/2019 1051 STG Assistive Device bed rails, HOB elevated at 10/14/2019 1051 [id number]-Tmn Goal Most Recent Value STG Status new at 10/14/2019 1051 STG [place] Level minimum assist (75% patient effort) at 10/14/2019 1051 STG Assistive Device 2 wheeled walker (FWW), bariatric at 10/14/2019 1051 Gait Goal Most Recent Value STG Status new at 10/14/2019 1051 STG [place] Level minimum assist (75% patient effort) at 10/14/2019 1051 STG Assistive Device 2 wheeled walker (FWW), bariatric at 10/14/2019 1051 STG Distance (feet) 25 at 10/14/2019 1051 PT Time Calculation PT Additional Treatment Time: Co-treatment PT Co-treatment Start Time: 1023 PT Co-treatment Stop Time: 1051 PT Co-treatment Total Time: 28 PT Total Treatment Time: 28 Timed TX Code Minutes: 0 Electronically signed by: Yu Camejo, PT, 10/14/2019 11:38 AM PDT lan of Arcelia - Shira Harper RN - 10/14/2019 4:58 AM PDTPt c/o chronic back pain, lidocaine patch placed and 1 norco 10-325 given. Most comfortable on L side. [id number], titrating levo, currently at 4 mcg/min. Pt has excoriat ion to groin and thighs, miconazole powder given. Using bedpan and has orozco. Pt on 2L n/c, satting well. A-line to L wrist, drsg CDI, site looks good. Pt education provided on midline and a-line. Pt pleasant and cooperative. Electronically signed by Shira Harper RN at 09/23 5:09 AM PDTPlan of Charlotte Breen RN - 10/13/2019 6:52 PM PDTRobin has is currently on 3mcg/min of levophed to maintain SBP of 130's-140's per MD order. HR has been NSR. She repositions in the bed w/the leonardo lift. She has had a poor appetite and UO this sh ift has been 125mls. Awaiting results of 1800 BMP results. Wound consult placed for wound between toes to L. Foot. lan of Hollis Paz RRT - 10/13/2019 5:58 PM PDTRobin has no respiratory c oncerns, but was given a 5mg dose of Albuterol by nebulizer by order to combat her Hyperkale noman. Lungs sound clear, No respiratory distress and her SpO2: 94 % on 3liters/minute nasal c annula. lan of Yu Tinoco PT - 10/13/2019 2:45 PM PDTTherapy Plan of Care Missed Visit Note Patient Information Patient Name: Norbert Mckay Date of : 1960 Age: 58 y.o. The patient was unable to be seen for today's scheduled visit due to pt recently started on pressors for BP support. Not appropriate to mobilize with PT at this time. Plan: Monitor pt status, eval when medically stable. Electronically signed by: Yu Caemjo PT, 10/13/2019 2:46 PM PDT lan of Care - Julita High, OT - 10/13/2019 2:40 PM PDT Occupational Therapy Plan of Care Initial Evaluation, Treatment Note Summary: Norbert presents to occupational therapy with Impaired BADLs, impaired basic funct ional mobility, decreased functional activity tolerance, decreased BUE function following ad yazmin w/ UTI w/ sepsis; hyperkalemia; ARF; elevated troponins. Pt having progressive weakness , decreased mobility x 1 month w/ dizziness and near syncopal.. Objective exam reveals impa irments with aerobic capacity/endurance, anthropometric characteristics, arousal, attention, and cognition, ergonomics and body mechanics, functional endurance/activity tolerance, gait , locomotion, and balance, integumentary integrity, joint integrity and mobility, muscle per formance, ROM, social dynamics. Pt currently on pressors for BP and not appropriate to gudelia gaston in/out of bed. Modified evaluation occurred- completed UE ROM/strength, comprehensive review of demographics and PLOF. BLE edema also present w/ very firm, fibrotic tissue. Ski n dry and flaky. There is a sore/wound in webbing of L great/2nd toe w/ dog hair embedded t hat needs addressed. Debriefed MD regarding edema and wound & requested a Wound Consultatio n. Pt has essentially been housebound x 1 full month but very limited in her activities since June. Has had significant decline in abilities and is likely to require a higher level of care prior to d/c home. Proceed tomorrow w/ co-evaluation w/ PT as medically appropriate. RN cleared patient for participation in therapy- minimal bedside activities, do not change HOB position. Patient was agreeable to therapy. Patient participated without adverse reactio n. Barriers to discharge and functional limitations include decreased insight into safety and deficits, decreased functional activity tolerance, decreased functional transfers, decreased ability to perform ADLs, decreased ability to perform IADLs, unsafe discharge disposition, not yet able to mobilize at level safe for home discharge, and medical status. Norbert will benefit from therapeutic intervention to address impairments and increase safety and independence with activities necessary for safe discharge. Refer below for specific de tails regarding functional levels. Precautions/Limitations: falls Previous Level of Function: For the last month she has steadily declined in her abilities- has not left the house for t he last month, even to go outside. Has been able to walk between office, bathroom, and bedr oom only. Gait w/ quad cane in the house, w/ difficulty. 4WW when outdoors. assists to put socks on, if she wears them. Has been able to manage to dress herself, toilet, comp lete shower- but all have been steadily getting more difficult to complete. Potential available assistance at discharge: Significant Relationships: spouse Provides Primary Care For: pet(s)(2 dogs- [place] Coley, mixed breed Pitbull, Lab. ) Role Relationships Comment: Spouse present and supportive, works for[employer]. 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 Living Environment/Accessibility: Lives With: spouse Living Arrangements: house Home Accessibility: ramps present at home, grab bars present (bathtub) Number of Stairs to Enter Home: 0(w/c ramp) Number of Stairs Within Home: 0 Living Environment Comment: Tub w/ tub transfer bench Patient/Family s Goals: "Will tomorrow be a better day." Would just like this to get bet ter. Rehabilitation potential: fair, will monitor progress closely Occupational Therapy Discharge Recommendations are: Recommended discharge disposition: (TBD based on progress- potential need for higher level of care) Post discharge occupational therapy recommendation: (TBD based on progress) Equipment Recommendations: wheelchair(Has bariatric 4WW, quad cane, tub bench.) Planned Interventions:ADL retraining, balance training, bed mobility training, functional e ndurance training, ROM (Range of Motion), strengthening, transfer training, discharge planni ng, patient/family education(edema/wound mgmt prn) Recommended Frequency: 4 times/wk, 5 times/wk Patient Status/Goals: Reflects last filed data and may be from multiple contributors. ADLs Pt on pressors so modified evaluation completed. Further ADLs @ future visits. UE assessm ent, info gathering, and assessment of LE edema completed. Cognitive Alert & oriented. Perhaps lacking some insight - steadily declining x 1month, has not lef t her home in one month- did not seek out medical assistance via phone (Covid related). Bed Mobility Pt currently on pressors and not appropriate for further mobility in head- HOB needs to rem ain as positioned. Transfers Pt currently on pressors and not appropriate for transfers. Will assess when appropriate. ROM From supine L UE ROM: 110* shoulder flexion, other mvmts WFL R UE ROM: 120* shoulder flexion, other mvmts WFL Strength Generalized weakness, prolonged decline in overall functional abilities. L UE Strength: Grossly 3-/5 shoulder, grossly 3+/5 other mvmts R UE Strength: Grossly 3-/5 shoulder, grossly 3+/5 other mvmts Vision: Vision Comments: Intact Coordination: Coordination Comments: Intact OT Goal Review Date Most Recent Value STG Review Date 10/20/19 at 10/13/2019 1440 UB Dressing Goal Most Recent Value STG Status new at 10/13/2019 1440 STG [place] Level stand by assist at 10/13/2019 1440 Toilet Transfer Goal Most Recent Value STG Status new at 10/13/2019 1440 STG [place] Level moderate assist (50% patient effort) at 10/13/2019 1440 ROM Goal Most Recent Value STG Status new at 10/13/2019 1440 STG Pt will have WFL BUE ROM to improve completion of ADLs/mobility. at 10/13/2019 1440 Strength Goal Most Recent Value STG Status new at 10/13/2019 1440 STG Pt will have grossly 4/5 UE strength to improve completion of ADLs/mobility. at 2019 1440 Additional Goals #1 OT Most Recent Value STG Status new at 10/13/2019 1440 STG Pt will tolerate compression wrapping up to 24-48 hours to facilitate reduction in ade ma, improve LE function/strength, and ease completion of ADLs. at 10/13/2019 1440 OT Time Calculation OT Individual Start Time: 1345 OT Individual Stop Time: 1440 OT Individual Total Time: 55 OT Total Treatment Time: 55 Timed TX Code Minutes: 40 Electronically signed by: Julita High OT, 10/13/2019 4:18 PM PDT lan of Arcelia - Gi Jose RN - 10/13/2019 10:48 AM PDT Problem: Discharge Planning Goal: Patient's discharge needs will be identified in a timely manner Outcome: Ongoing, progressing Goal: Patient will be discharged in a safe manner Outcome: Ongoing, progressing Met with Norbert and her spouse Harshil in the room. They live in [place], [place] with their 2 dogs in a one level house. Their are no steps, due to a WC ramp. They have a walk in shower with grab bars. She uses a footed cane in the house and a 4 WW with a seat out of the house. She states she does all her own ADL's except putting on her s ocks. She does not use CPAP or oxygen. Harshil will drive her home when she is ready for discharge. At this time they deny any di scharge needs. Plan: Home with spouse.Electronically signed by: Gi Lucas RN 10/13/2019 10:56 AM PDT lan of Care - Charlotte Booker RN - 10/12/2019 7:00 PM PDTRobin [facility]. O2 now at 4L NC. Le vophed stopped on arrival, and BP had been wnl until pt became sleepy. was notified and has been monitoring. documented in this encounter Plan of Treatment +--------+ + + + + | Date | Type | Specialty | Care Team | Description | +--------+ + + + + | 12/02/ | Home Care | Home Health Services | [facility], | | 2019 | Visit | | [facility] [address] | | | | | | [facility] | | | | | | [id number] | | +--------+ + + + + | 12/04/ | Home Care | Home Health Services | [facility], | | | 2019 | Visit | | [facility] [address] | | | | | | [place] | | | | | | [id number] | | +--------+ + + + + | 12/04/ | Office | Sleep Medicine | [facility] | | | 2019 | Visit | | [facility] [address] | | | | | [address] | | | | | | [place] [address] | | | | | | [phone] | | | | | | | [...] | | 2019 | Visit | | [facility] [address] | | | | | | [address] [place] | | | | | | [id number] | | +--------+ + + + + [...] 2019 | | | [address] | | | | | | [place] [address] | | | | | | [phone] | | | | | | | | +--------+ + + + + | 12/18/ | Appointment | Home Health Services | Shoshana Caldwell, | | 2019 | | | RN [...] | | | | | | [facility] | | | | | | [place] [address] | | | | | | [phone] | | | | | | | | +--------+ + + + + + + +--------+ + + | Name | Type | Priori | Associated Diagnoses | Order Schedule | | | | ty | | | + + +--------+ + + | Referral to Home | Outpatient | Routin | Elevated troponin | Ordered: 10/16/2019 | | Health (not [place] | Referral | e | Acute cystitis | | | [place]) | | | without hematuria | | | | | | Sepsis, due to | | | | | | unspecified | | | | | | organism, | | | | | | unspecified whether | | | | | | acute organ | | | | | | dysfunction present | | | | | | (HCC) | | + + +--------+ + + | AMB Referral to [facility] | Outpatient | Routin | Elevated troponin | Ordered: 10/16/2019 | | [facility] (not | Referral | e | Acute cystitis | | | use this one) | | | without hematuria | | | | | | Sepsis, due to | | | | | | unspecified | | | | | | organism, | | | | | | unspecified whether | | | | | | acute organ | | | | | | dysfunction present | | | | | | ([facility]) | | + + +--------+ + + | Ambulatory referral | Outpatient | Routin | Elevated troponin | Ordered: 10/16/2019 | | to Cardiology | Referral | e | Acute cystitis | | | | | | without hematuria | | | | | | Sepsis, due to | | | | | | unspecified | | | | | | organism, | | | | | | unspecified whether | | | | | | acute organ | | | | | | dysfunction present | | | | | | ([facility]) | | + + +--------+ + + documented as of this encounter Procedures + +--------+ + + + | Procedure Name | Priori | Date/Time | Associated Diagnosis | Comments | | | ty | | | | + +--------+ + + + | IMAGING REPORT - | | 10/23/2019 | | Results for this | | EXTERNAL SCAN | | 12:00 AM | | procedure are in the | | | | PDT | | results section. | + +--------+ + + + | ECG - EXTERNAL SCAN | | 10/23/2019 | | Results for this | | | | 12:00 AM | | procedure are in the | | | | PDT | | results section. | + +--------+ + + + | POC GLUCOSE | Routin | 10/16/2019 | | Results for this | | | e | 12:23 PM | | procedure are in the | | | | PDT | | results section. | + +--------+ + + + | POC GLUCOSE | Routin | 10/16/2019 | | Results for this | | | e | 6:26 AM | | procedure are in the | | | | PDT | | results section. | + +--------+ + + + | CBC NO DIFFERENTIAL | Routin | 10/16/2019 | | Results for this | | | e | 4:49 AM | | procedure are in the | | | | PDT | | results section. | + +--------+ + + + | MAGNESIUM | Routin | 10/16/2019 | | Results for this | | | e | 4:49 AM | | procedure are in the | | | | PDT | | results section. | + +--------+ + + + | BASIC METABOLIC | Routin | 10/16/2019 | | Results for this | | PANEL | e | 4:49 AM | | procedure are in the | | | | PDT | | results section. | + +--------+ + + + | POC GLUCOSE | Routin | 10/15/2019 | | Results for this | | | e | 9:38 PM | | procedure are in the | | | | PDT | | results section. | + +--------+ + + + | POC GLUCOSE | Routin | 10/15/2019 | | Results for this | | | e | 6:17 PM | | procedure are in the | | | | PDT | | results section. | + +--------+ + + + | POC GLUCOSE | Routin | 10/15/2019 | | Results for this | | | e | 12:09 PM | | procedure are in the | | | | PDT | | results section. | + +--------+ + + + | CBC NO DIFFERENTIAL | Routin | 10/15/2019 | | Results for this | | | e | 4:55 AM | | procedure are in the | | | | PDT | | results section. | + +--------+ + + + | PHOSPHORUS | Routin | 10/15/2019 | | Results for this | | | e | 4:55 AM | | procedure are in the | | | | PDT | | results section. | + +--------+ + + + | MAGNESIUM | Routin | 10/15/2019 | | Results for this | | | e | 4:55 AM | | procedure are in the | | | | PDT | | results section. | + +--------+ + + + | BASIC METABOLIC | Routin | 10/15/2019 | | Results for this | | PANEL | e | 4:55 AM | | procedure are in the | | | | PDT | | results section. | + +--------+ + + + | POC GLUCOSE | Routin | 10/14/2019 | | Results for this | | | e | 8:54 PM | | procedure are in the | | | | PDT | | results section. | + +--------+ + + + | BASIC METABOLIC | Routin | 10/14/2019 | | Results for this | | PANEL | e | 6:32 PM | | procedure are in the | | | | PDT | | results section. | + +--------+ + + + | POC GLUCOSE | Routin | 10/14/2019 | | Results for this | | | e | 4:51 PM | | procedure are in the | | | | PDT | | results section. | + +--------+ + + + | POC GLUCOSE | Routin | 10/14/2019 | | Results for this | | | e | 12:16 PM | | procedure are in the | | | | PDT | | results section. | + +--------+ + + + | ECHO COMPLETE | Routin | 10/14/2019 | | Results for this | | | e | 9:10 AM | | procedure are in the | | | | PDT | | results section. | + +--------+ + + + | POC GLUCOSE | Routin | 10/14/2019 | | Results for this | | | e | 7:02 AM | | procedure are in the | | | | PDT | | results section. | + +--------+ + + + | CBC NO DIFFERENTIAL | Routin | 10/14/2019 | | Results for this | | | e | 4:39 AM | | procedure are in the | | | | PDT | | results section. | + +--------+ + + + | PHOSPHORUS | Routin | 10/14/2019 | | Results for this | | | e | 4:39 AM | | procedure are in the | | | | PDT | | results section. | + +--------+ + + + | MAGNESIUM | Routin | 10/14/2019 | | Results for this | | | e | 4:39 AM | | procedure are in the | | | | PDT | | results section. | + +--------+ + + + | HEPATIC FUNCTION | Routin | 10/14/2019 | | Results for this | | PANEL | e | 4:39 AM | | procedure are in the | | | | PDT | | results section. | + +--------+ + + + | BASIC METABOLIC | Routin | 10/14/2019 | | Results for this | | PANEL | e | 4:39 AM | | procedure are in the | | | | PDT | | results section. | + +--------+ + + + | TROPONIN I | Routin | 10/14/2019 | | Results for this | | | e | 12:08 AM | | procedure are in the | | | | PDT | | results section. | + +--------+ + + + | POC GLUCOSE | Routin | 10/13/2019 | | Results for this | | | e | 10:10 PM | | procedure are in the | | | | PDT | | results section. | + +--------+ + + + | TROPONIN I | Routin | 10/13/2019 | | Results for this | | | e | 6:12 PM | | procedure are in the | | | | PDT | | results section. | + +--------+ + + + | BASIC METABOLIC | Routin | 10/13/2019 | | Results for this | | PANEL | e | 6:12 PM | | procedure are in the | | | | PDT | | results section. | + +--------+ + + + | POC GLUCOSE | Routin | 10/13/2019 | | Results for this | | | e | 4:36 PM | | procedure are in the | | | | PDT | | results section. | + +--------+ + + + | TROPONIN I | Routin | 10/13/2019 | | Results for this | | | e | 1:21 PM | | procedure are in the | | | | PDT | | results section. | + +--------+ + + + | XR CHEST AP PORTABLE | STAT | 10/13/2019 | | Results for this | | | | 12:39 PM | | procedure are in the | | | | PDT | | results section. | + +--------+ + + + | POC GLUCOSE | Routin | 10/13/2019 | | Results for this | | | e | 11:35 AM | | procedure are in the | | | | PDT | | results section. | + +--------+ + + + | TSH | Routin | 10/13/2019 | | Results for this | | | e | 10:58 AM | | procedure are in the | | | | PDT | | results section. | + +--------+ + + + | BASIC METABOLIC | Timed | 10/13/2019 | | Results for this | | PANEL | | 10:58 AM | | procedure are in the | | | | PDT | | results section. | + +--------+ + + + | SODIUM, URINE, | Routin | 10/13/2019 | | Results for this | | RANDOM | e | 10:46 AM | | procedure are in the | | | | PDT | | results section. | + +--------+ + + + | OSMOLALITY, URINE | Routin | 10/13/2019 | | Results for this | | | e | 10:46 AM | | procedure are in the | | | | PDT | | results section. | + +--------+ + + + | US RENAL COMPLETE | STAT | 10/13/2019 | | Results for this | | | | 9:16 AM | | procedure are in the | | | | PDT | | results section. | + +--------+ + + + | ECG 12 LEAD | STAT | 10/13/2019 | | Results for this | | | | 8:36 AM | | procedure are in the | | | | PDT | | results section. | + +--------+ + + + | POC GLUCOSE | Routin | 10/13/2019 | | Results for this | | | e | 7:00 AM | | procedure are in the | | | | PDT | | results section. | + +--------+ + + + | EXTRA LAVENDER TOP | Routin | 10/13/2019 | | Results for this | | TUBE | e | 6:10 AM | | procedure are in the | | | | PDT | | results section. | + +--------+ + + + | TROPONIN I | Routin | 10/13/2019 | | Results for this | | | e | 6:10 AM | | procedure are in the | | | | PDT | | results section. | + +--------+ + + + | PROTIME INR | Routin | 10/13/2019 | | Results for this | | | e | 3:55 AM | | procedure are in the | | | | PDT | | results section. | + +--------+ + + + | CBC NO DIFFERENTIAL | Routin | 10/13/2019 | | Results for this | | | e | 3:55 AM | | procedure are in the | | | | PDT | | results section. | + +--------+ + + + | MAGNESIUM | Routin | 10/13/2019 | | Results for this | | | e | 3:55 AM | | procedure are in the | | | | PDT | | results section. | + +--------+ + + + | LACTIC ACID | Routin | 10/13/2019 | | Results for this | | | e | 3:55 AM | | procedure are in the | | | | PDT | | results section. | + +--------+ + + + | BASIC METABOLIC | Routin | 10/13/2019 | | Results for this | | PANEL | e | 3:55 AM | | procedure are in the | | | | PDT | | results section. | + +--------+ + + + | TROPONIN I | Routin | 10/13/2019 | | Results for this | | | e | 12:00 AM | | procedure are in the | | | | PDT | | results section. | + +--------+ + + + | LACTIC ACID | Routin | 10/12/2019 | | Results for this | | | e | 10:31 PM | | procedure are in the | | | | PDT | | results section. | + +--------+ + + + | ELECTROLYTE PANEL | Routin | 10/12/2019 | | Results for this | | | e | 10:30 PM | | procedure are in the | | | | PDT | | results section. | + +--------+ + + + | POC GLUCOSE | Routin | 10/12/2019 | | Results for this | | | e | 10:09 PM | | procedure are in the | | | | PDT | | results section. | + +--------+ + + + | CBC WITH | Routin | 10/12/2019 | | Results for this | | DIFFERENTIAL | e | 8:40 PM | | procedure are in the | | | | PDT | | results section. | + +--------+ + + + | HEPATIC FUNCTION | Routin | 10/12/2019 | | Results for this | | PANEL | e | 8:40 PM | | procedure are in the | | | | PDT | | results section. | + +--------+ + + + | BASIC METABOLIC | Routin | 10/12/2019 | | Results for this | | PANEL | e | 8:40 PM | | procedure are in the | | | | PDT | | results section. | + +--------+ + + + | CULTURE, MRSA | Routin | 10/12/2019 | | Results for this | | | e | 6:38 PM | | procedure are in the | | | | PDT | | results section. | + +--------+ + + + | LABS - EXTERNAL SCAN | | 10/12/2019 | | Results for this | | | | 12:00 AM | | procedure are in the | | | | PDT | | results section. | + +--------+ + + + documented in this encounter Results IMAGING REPORT - EXTERNAL SCAN (10/23/2019 12:00 AM PDT) + + + | Narrative | Performed At | + + + | Ordered by an | | | unspecified provider. | | + + + ECG - EXTERNAL SCAN (10/23/2019 12:00 AM PDT) + + + | Narrative | Performed At | + + + | Ordered by an | | | unspecified provider. | | + + + POC Glucose (10/16/2019 12:23 PM PDT) + +---------+ + + + | Component | Value | Ref Range | Performed | Pathologist | | | | | At | Signature | + +---------+ + + + | Glucose, | 125 (H) | 70 - 109 mg/dL | [facility] | | | POC | | | [facility] | | | | | | MEDICAL | | | | | | CENTER - | | | | | | LABORATORY | | + +---------+ + + + + + | Specimen | + + | Blood | + + + + + + + | Performing | Address | City/State/Zipcode | Phone Number | | Organization | | | | + + + + + | [facility] | [address] | [place] | [phone] | | [facility] | | [address] | | | - LABORATORY | | | | + + + + + POC Glucose (10/16/2019 6:26 AM PDT) + +-------+ + + + | Component | Value | Ref Range | Performed | Pathologist | | | | | At | Signature | + +-------+ + + + | Glucose, | 103 | 70 - 109 mg/dL | [facility] | | | POC | | | [facility] | | | | | | MEDICAL | | | | | | CENTER - | | | | | | LABORATORY | | + +-------+ + + + + + | Specimen | + + | Blood | + + + + + + + | Performing | Address | City/State/Zipcode | Phone Number | | Organization | | | | + + + + + | [facility] | [address] | [place] | [phone] | | [facility] | | [address] | | | - LABORATORY | | | | + + + + + Magnesium (10/16/2019 4:49 AM PDT) + +---------+ + + + | Component | Value | Ref Range | Performed | Pathologist | | | | | At | Signature | + +---------+ + + + | Magnesium | 1.3 (L) | 1.6 - 2.6 mg/dL | [facility] | | | | | | [facility] | | | | | | [facility] | | | | | | C[facility] - | | | | | | LABORATORY | | + +---------+ + + + + + | Specimen | + + | Blood | + + + + + + + | Performing | Address | City/State/Zipcode | Phone Number | | Organization | | | | + + + + + | [facility] | [address] | [place] | [phone] | | [facility] | | [address] | | | - LABORATORY | | | | + + + + + CBC no Differential (10/16/2019 4:49 AM PDT) + + + + + + | Component | Value | Ref Range | Performed | Pathologist | | | | | At | Signature | + + + + + + | White Blood | 6.3 | 4.0 - 11.0 K/uL | [facility] | | | Cells | | | [facility] | | | | | | MEDICAL | | | | | | CENTER - | | | | | | LABORATORY | | + + + + + + | Red Blood | 3.37 (L) | 3.70 - 5.20 | [facility] | | | Cells | | M/uL | [facility] | | | | | | MEDICAL | | | | | | CENTER - | | | | | | LABORATORY | | + + + + + + | Hemoglobin | 10.5 (L) | 11.5 - 16.0 | [facility] | | | | | g/dL | [facility] | | | | | | MEDICAL | | | | | | CENTER - | | | | | | LABORATORY | | + + + + + + | Hematocrit | 33.4 (L) | 34.0 - 47.0 % | [facility] | | | | | | [facility] | | | | | | MEDICAL | | | | | | CENTER - | | | | | | LABORATORY | | + + + + + + | MCV | 99.1 | 83.0 - 101.0 fL | [facility] | | | | | | [facility] | | | | | | MEDICAL | | | | | | CENTER - | | | | | | LABORATORY | | + + + + + + | MCH | 31.2 | 28.0 - 35.0 pg | [facility] | | | | | | [facility] | | | | | | [facility]ICAL | | | | | | CENTER - | | | | | | LABORATORY | | + + + + + + | MCHC | 31.4 (L) | 32.0 - 36.0 | [facility] | | | | | g/dL | [facility] | | | | | | MEDICAL | | | | | | CENTER - | | | | | | LABORATORY | | + + + + + + | RDW-CV | 14.3 | <15.0 % | [facility] | | | | | | [facility] | | | | | | MEDICAL | | | | | | CENTER - | | | | | | LABORATORY | | + + + + + + | RDW-SD | 50.6 (H) | 35.1 - 46.3 fL | [facility] | | | | | | [facility] | | | | | | MEDICAL | | | | | | CENTER - | | | | | | LABORATORY | | + + + + + + | Platelet | 152 | 140 - 440 K/uL | [facility] | | | Count | | | [facility] | | | | | | MEDICAL | | | | | | CENTER - | | | | | | LABORATORY | | + + + + + + | MPV | 11.4 | 6.5 - 12.4 fL | [facility] | | | | | | [facility] | | | | | | MEDICAL | | | | | | CENTER - | | | | | | LABORATORY | | + + + + + + | % nRBC | 0 | 0 - 2 per 100 | [facility] | | | | | WBCs | [facility] | | | | | | MEDICAL | | | | | | CENTER - | | | | | | LABORATORY | | + + + + + + | Absolute | 0.00 | 0.00 - 0.01 | [facility] | | | nRBC | | K/uL | [facility] | | | | | | MEDICAL | | | | | | CENTER - | | | | | | LABORATORY | | + + + + + + + + | Specimen | + + | Blood | + + + + + + + | Performing | Address | City/State/Zipcode | Phone Number | | Organization | | | | + + + + + | [facility] | [address] | [place] | [phone] | | [facility] | | [address] | | | - LABORATORY | | | | + + + + + Basic Metabolic Panel (10/16/2019 4:49 AM PDT) + + + + + + | Component | Value | Ref Range | Performed | Pathologist | | | | | At | Signature | + + + + + + | Na | 140 | 136 - 145 | [facility] | | | | | mmol/L | [facility] | | | | | | MEDICAL | | | | | | CENTER - | | | | | | LABORATORY | | + + + + + + | K | 4.3 | 3.4 - 5.1 | [facility] | | | | | mmol/L | [facility] | | | | | | MEDICAL | | | | | | CENTER - | | | | | | LABORATORY | | + + + + + + | Cl | 110 (H) | 98 - 107 mmol/L | [facility] | | | | | | [facility] | | | | | | MEDICAL | | | | | | CENTER - | | | | | | LABORATORY | | + + + + + + | CO2 | 20 | 20 - 31 mmol/L | [facility] | | | | | | [facility] | | | | | | MEDICAL | | | | | | CENTER - | | | | | | LABORATORY | | + + + + + + | Anion Gap | 10 | 3 - 16 mmol/L | [facility] | | | | | | [facility] | | | | | | MEDICAL | | | | | | CENTER - | | | | | | LABORATORY | | + + + + + + | Glucose | 110 (H) | 60 - 106 mg/dL | [facility] | | | | | | [facility] | | | | | | MED[facility] | | | | | | CENTER - | | | | | | LABORATORY | | + + + + + + | BUN | 42 (H) | 9 - 23 mg/dL | [facility] | | | | | | [facility] | | | | | | MEDICAL | | | | | | CENTER - | | | | | | LABORATORY | | + + + + + + | Creatinine | 2.47 (H) | 0.55 - 1.02 | [facility] | | | | | mg/dL | [facility] | | | | | | MEDICAL | | | | | | CENTER - | | | | | | LABORATORY | | + + + + + + | eGFR, | 20 (L)Comment: | >=60 | [facility] | | | non- | GLOMERULAR FILTRATION | mL/min/1.73m2 | [facility] | | | [place] | RATE,ESTIMATED | | MEDICAL | | | | mL/min/1.11k3Vqdl than | | CENTER - | | | | 60 Chronic kidney | | LABORATORY | | | | disease,if found over a | | | | | | 3-month period.Less than | | | | | | 15 Kidney failureFor | | | | | | | | | | | | Americans,multiply the | | | | | | calculated GFR by 1.21. | | | | | | | | | | + + + + + + | Calcium | 8.3 (L) | 8.7 - 10.4 | [facility] | | | | | mg/dL | [facility] | | | | | | MEDICAL | | | | | | CENTER - | | | | | | LABORATORY | | + + + + + + | BUN/Creatin | 17.0 | | [facility] | | | ine Ratio | | | [facility] | | | | | | MEDICAL | | | | | | CENTER - | | | | | | LABORATORY | | + + + + + + + + | Specimen | + + | Blood | + + + + + + + | Performing | Address | City/State/Zipcode | Phone Number | | Organization | | | | + + + + + | [facility] | [address] | [place] | [phone] | | [facility] | | [address] | | | - LABORATORY | | | | + + + + + POC Glucose (10/15/2019 9:38 PM PDT) + +---------+ + + + | Component | Value | Ref Range | Performed | Pathologist | | | | | At | Signature | + +---------+ + + + | Glucose, | 138 (H) | 70 - 109 mg/dL | [facility] | | | POC | | | [facility] | | | | | | MEDICAL | | | | | | CENTER - | | | | | | LABORATORY | | + +---------+ + + + + + | Specimen | + + | Blood | + + + + + + + | Performing | Address | City/State/Zipcode | Phone Number | | Organization | | | | + + + + + | [facility] | [address] | [place] | [phone] | | [facility] | | [address] | | | - LABORATORY | | | | + + + + + POC Glucose (10/15/2019 6:17 PM PDT) + +---------+ + + + | Component | Value | Ref Range | Performed | Pathologist | | | | | At | Signature | + +---------+ + + + | Glucose, | 126 (H) | 70 - 109 mg/dL | [facility] | | | POC | | | [facility] | | | | | | MEDICAL | | | | | | CENTER - | | | | | | LABORATORY | | + +---------+ + + + + + | Specimen | + + | Blood | + + + + + + + | Performing | Address | City/State/Zipcode | Phone Number | | Organization | | | | + + + + + | [facility] | [address] | [place] | [phone] | | [facility] | | [address] | | | - LABORATORY | | | | + + + + + POC Glucose (10/15/2019 12:09 PM PDT) + +---------+ + + + | Component | Value | Ref Range | Performed | Pathologist | | | | | At | Signature | + +---------+ + + + | Glucose, | 153 (H) | 70 - 109 mg/dL | [facility] | | | POC | | | [facility] | | | | | | [facility]ICAL | | | | | | CENTER - | | | | | | LABORATORY | | + +---------+ + + + + + | Specimen | + + | Blood | + + + + + + + | Performing | Address | City/State/Zipcode | Phone Number | | Organization | | | | + + + + + | [facility] | [address] | [place] | [phone] | | [facility] | | [address] | | | - LABORATORY | | | | + + + + + Phosphorus (10/15/2019 4:55 AM PDT) + +-------+ + + + | Component | Value | Ref Range | Performed | Pathologist | | | | | At | Signature | + +-------+ + + + | Phosphorus | 5.0 | 2.4 - 5.1 mg/dL | [facility] | | | | | | [facility] | | | | | | MEDICAL | | | | | | CENTER - | | | | | | LABORATORY | | + +-------+ + + + + + | Specimen | + + | Blood | + + + + + + + | Performing | Address | City/State/Zipcode | Phone Number | | Organization | | | | + + + + + | [facility] | [address] | [place] | [phone] | | [facility] | | [address] | | | - LABORATORY | | | | + + + + + Magnesium (10/15/2019 4:55 AM PDT) + +---------+ + + + | Component | Value | Ref Range | Performed | Pathologist | | | | | At | Signature | + +---------+ + + + | Magnesium | 1.4 (L) | 1.6 - 2.6 mg/dL | [facility] | | | | | | [facility] | | | | | | MEDICAL | | | | | | CENTER - | | | | | | LABORATORY | | + +---------+ + + + + + | Specimen | + + | Blood | + + + + + + + | Performing | Address | City/State/Zipcode | Phone Number | | Organization | | | | + + + + + | [facility] | [address] | [place] | [phone] | | [facility] | | [address] | | | - LABORATORY | | | | + + + + + CBC no Differential (10/15/2019 4:55 AM PDT) + + + + + + | Component | Value | Ref Range | Performed | Pathologist | | | | | At | Signature | + + + + + + | White Blood | 7.0 | 4.0 - 11.0 K/uL | [facility] | | | Cells | | | [facility] | | | | | | MEDICAL | | | | | | CENTER - | | | | | | LABORATORY | | + + + + + + | Red Blood | 3.35 (L) | 3.70 - 5.20 | [facility] | | | Cells | | M/uL | [facility] | | | | | | MEDICAL | | | | | | CENTER - | | | | | | LABORATORY | | + + + + + + | Hemoglobin | 10.5 (L) | 11.5 - 16.0 | [facility] | | | | | g/dL | [facility] | | | | | | MEDICAL | | | | | | CENTER - | | | | | | LABORATORY | | + + + + + + | Hematocrit | 33.9 (L) | 34.0 - 47.0 % | [facility] | | | | | | [facility] | | | | | | MEDICAL | | | | | | CENTER - | | | | | | LABORATORY | | + + + + + + | MCV | 101.2 (H) | 83.0 - 101.0 fL | [facility] | | | | | | [facility] | | | | | | MEDICAL | | | | | | CENTER - | | | | | | LABORATORY | | + + + + + + | MCH | 31.3 | 28.0 - 35.0 pg | [facility] | | | | | | [facility] | | | | | | MEDICAL | | | | | | CENTER - | | | | | | LABORATORY | | + + + + + + | MCHC | 31.0 (L) | 32.0 - 36.0 | [facility] | | | | | g/dL | [facility] | | | | | | MEDICAL | | | | | | CENTER - | | | | | | LABORATORY | | + + + + + + | RDW-CV | 14.3 | <15.0 % | [facility] | | | | | | [facility] | | | | | | MEDICAL | | | | | | CENTER - | | | | | | LABORATORY | | + + + + + + | RDW-SD | 52.6 (H) | 35.1 - 46.3 fL | [facility] | | | | | | [facility] | | | | | | MEDICAL | | | | | | CENTER - | | | | | | LABORATORY | | + + + + + + | Platelet | 136 (L) | 140 - 440 K/uL | [facility] | | | Count | | | [facility] | | | | | | MEDICAL | | | | | | CENTER - | | | | | | LABORATORY | | + + + + + + | MPV | 11.4 | 6.5 - 12.4 fL | [facility] | | | | | | [facility] | | | | | | MEDICAL | | | | | | CENTER - | | | | | | LABORATORY | | + + + + + + | % nRBC | 0 | 0 - 2 per 100 | [facility] | | | | | WBCs | [facility] | | | | | | MEDICAL | | | | | | CENTER - | | | | | | LABORATORY | | + + + + + + | Absolute | 0.00 | 0.00 - 0.01 | [facility] | | | nRBC | | K/uL | [facility] | | | | | | MEDICAL | | | | | | CENTER - | | | | | | LABORATORY | | + + + + + + + + | Specimen | + + | Blood | + + + + + + + | Performing | Address | City/State/Zipcode | Phone Number | | Organization | | | | + + + + + | [facility] | [address] | [place] | [phone] | | [facility] | | [address] | | | - LABORATORY | | | | + + + + + Basic Metabolic Panel (10/15/2019 4:55 AM PDT) + + + + + + | Component | Value | Ref Range | Performed | Pathologist | | | | | At | Signature | + + + + + + | Na | 141 | 136 - 145 | [facility] | | | | | mmol/L | [facility] | | | | | | [facility] | | | | | | CENTER - | | | | | | LABORATORY | | + + + + + + | K | 4.5 | 3.4 - 5.1 | [facility] | | | | | mmol/L | [facility] | | | | | | MEDICAL | | | | | | CENTER - | | | | | | LABORATORY | | + + + + + + | Cl | 111 (H) | 98 - 107 mmol/L | [facility] | | | | | | [facility] | | | | | | MEDICAL | | | | | | CENTER - | | | | | | LABORATORY | | + + + + + + | CO2 | 20 | 20 - 31 mmol/L | [facility] | | | | | | [facility] | | | | | | MEDICAL | | | | | | CENTER - | | | | | | LABORATORY | | + + + + + + | Anion Gap | 10 | 3 - 16 mmol/L | [facility] | | | | | | [facility] | | | | | | [facility] | | | | | | CENTER - | | | | | | LABORATORY | | + + + + + + | Glucose | 117 (H) | 60 - 106 mg/dL | [facility] | | | | | [facility] | | | | | | [facility] | | | | | | C[facility] - | | | | | | LABORATORY | | + + + + + + | BUN | 45 (H) | 9 - 23 mg/dL | [facility] | [facility] | | [facility] | [facility] | | | | | | CENTER - | | | | | | LABORATORY | | + + + + + + | Creatinine | 2.90 (H) | 0.55 - 1.02 | [facility] | | | | | mg/dL | [facility] | | | | | | [facility] | | | | | | C[facility] - | | | | | | LABORATORY | | + + + + + + | eGFR, | 17 (L)Comment: | >=60 | [facility] | | | non- | GLOMERULAR FILTRATION | mL/min/1.73m2 | [facility] | | | [place] | RATE,ESTIMATED | | MEDICAL | | | | mL/min/1.97h7Aiet than | | CENTER - | | | | 60 Chronic kidney | | LABORATORY | | | | disease,if found over a | | | | | | 3-month period.Less than | | | | | | 15 Kidney failureFor | | | | | | | | | | | | Americans,multiply the | | | | | | calculated GFR by 1.21. | | | | | | | | | | + + + + + + | Calcium | 8.1 (L) | 8.7 - 10.4 | [facility] | | | | | mg/dL | [facility] | | | | | | MEDICAL | | | | | | CENTER - | | | | | | LABORATORY | | + + + + + + | BUN/Creatin | 15.5 | | [facility] | | | ine Ratio | | | [facility] | | | | | | MEDICAL | | | | | | CENTER - | | | | | | LABORATORY | | + + + + + + + + | Specimen | + + | Blood | + + + + + + + | Performing | Address | City/State/Zipcode | Phone Number | | Organization | | | | + + + + + | [facility] | [address] | [place] | [phone] | | [facility] | | [id number] | | | - LABORATORY | | | | + + + + + POC Glucose (10/14/2019 8:54 PM PDT) + +---------+ + + + | Component | Value | Ref Range | Performed | Pathologist | | | | | At | Signature | + +---------+ + + + | Glucose, | 127 (H) | 70 - 109 mg/dL | [facility] | | | [facility] | | | [facility] | | | | | | [facility] | | | | | | CENTER - | | | | | | LABORATORY | | + +---------+ + + + + + | Specimen | + + | Blood | + + + + + + + | Performing | Address | City/State/Zipcode | Phone Number | | Organization | | | | + + + + + | [facility] | [address] | [place] | [phone] | | [facility] | | [id number] | | | - LABORATORY | | | | + + + + + Basic Metabolic Panel (10/14/2019 6:32 PM PDT) + + + + + + | Component | Value | Ref Range | Performed | Pathologist | | | | | At | Signature | + + + + + + | Na | 138 | 136 - 145 | [facility] | | | | | mmol/L | [facility] | | | | | | MEDICAL | | | | | | CENTER - | | | | | | LABORATORY | | + + + + + + | K | 4.6 | 3.4 - 5.1 | [facility] | | | | | mmol/L | [facility] | | | | | | MEDICAL | | | | | | CENTER - | | | | | | LABORATORY | | + + + + + + | Cl | 110 (H) | 98 - 107 mmol/L | [facility] | | [facility] | [facility] | [facility] - | | | | | | LABORATORY | | + + + + + + | CO2 | 19 (L) | 20 - 31 mmol/L | [facility] | | [facility] | | [facility] - | | | | | | LABORATORY | | + + + + + + | Anion Gap | 9 | 3 - 16 mmol/L | [facility] | | [facility] | | [facility] - | | | | | | LABORATORY | | + + + + + + | Glucose | 140 (H) | 60 - 106 mg/dL | [facility] | | [facility] | | | | | | [facility] - | | | | | | LABORATORY | | + + + + + + | BUN | 47 (H) | 9 - 23 mg/dL | [facility] | | | | | | [facility] | | [facility] | [facility] | | | | | | [facility] - | | | | | | LABORATORY | | + + + + + + | Creatinine | 3.05 (H) | 0.55 - 1.02 | [facility] | | | | | mg/dL | [facility] | | | [facility] | [facility] | | | | | | [facility] - | | | | | | LABORATORY | | + + + + + + | eGFR, | 16 (L)Comment: | >=60 | [facility] | | | non- | GLOMERULAR FILTRATION | mL/min/1.73m2 | [facility] | | | [place] | RATE,ESTIMATED | | MEDICAL | | | | mL/min/1.04k4Lidl than | | CENTER - | | | | 60 Chronic kidney | | LABORATORY | | | | disease,if found over a | | | | | | 3-month period.Less than | | | | | | 15 Kidney failureFor | | | | | | | | | | | | Americans,multiply the | | | | | | calculated GFR by 1.21. | | | | | | | | | | + + + + + + | Calcium | 8.1 (L) | 8.7 - 10.4 | [facility] | | | | | mg/dL | [facility] | [facility] | | [facility] | [facility] | | | | | | CENTER - | | | | | | LABORATORY | | + + + + + + | BUN/Creatin | 15.4 | | [facility] | | | ine Ratio | | | [facility] | [facility] | | [facility] | [facility] | | | | | | CENTER - | | | | | | LABORATORY | | + + + + + + + + | Specimen | + + | Blood | + + + + + + + | Performing | Address | City/State/Zipcode | Phone Number | | Organization | | | | + + + + + | [facility] | [address] | [place] | [phone] | | [facility] | | [address] | | | - LABORATORY | | | | + + + + + POC Glucose (10/14/2019 4:51 PM PDT) + +---------+ + + + | Component | Value | Ref Range | Performed | Pathologist | | | | | At | Signature | + +---------+ + + + | Glucose, | 116 (H) | 70 - 109 mg/dL | [facility] | | | POC | | | [facility] | | [facility] | [facility] | | | | | | [facility] - | | | | | | LABORATORY | | + +---------+ + + + + + | Specimen | + + | Blood | + + + + + + + | Performing | Address | City/State/Zipcode | Phone Number | | Organization | | | | + + + + + | [facility] | [address] | [place], [place] | [phone] | | [facility] | | [address] | | | - LABORATORY | | | | + + + + + POC Glucose (10/14/2019 12:16 PM PDT) + +---------+ + + + | Component | Value | Ref Range | Performed | Pathologist | | | | | At | Signature | + +---------+ + + + | Glucose, | 128 (H) | 70 - 109 mg/dL | [facility] | | | P[facility] | | | [facility] | | | | | | [facility] | | | | | | CENTER - | | | | | | LABORATORY | | + +---------+ + + + + + | Specimen | + + | Blood | + + + + + + + | Performing | Address | City/State/Zipcode | Phone Number | | Organization | | | | + + + + + | [facility] | [address] | [place] | [phone] | | [facility] | | [address] | | | - LABORATORY | | | | + + + + + ECHO Complete (10/14/2019 9:10 AM PDT) + +--------+ + + + | Component | Value | Ref Range | Performed | Pathologist | | | | | At | Signature | + +--------+ + + + | LVIDd | 4.55 | cm | [facility] | | + +--------+ + + + | FS | 41 | % | [facility] | | + +--------+ + + + | LA volume | 51.46 | mL | [facility] | | + +--------+ + + + | Ascending | 3 | cm | [facility] | | | aorta | | | | | + +--------+ + + + | Aortic arch | 2.7 | cm | [facility] | | + +--------+ + + + | AV mean | 8.66 | mmHg | [facility] | | | gradient | | | | | + +--------+ + + + | Aortic | 1.84 | cm2 | [facility] | | | Valve Area | | | | | | by | | | | | | Continuity | | | | | | VTI | | | | | + +--------+ + + + | MV mean | 2.71 | mmHg | [facility] | | | gradient | | | | | + +--------+ + + + | MV Area by | 2.92 | cm2 | [facility] | | | P 1/2 | | | | | | method | | | | | + +--------+ + + + | MV Area by | 2.23 | cm2 | [facility] | | | Continuity | | | | | | Equation | | | | | + +--------+ + + + | IVRT | 131.49 | msec | [facility] | | + +--------+ + + + | LVOT | 2.05 | cm | [facility] | | | diameter | | | | | + +--------+ + + + | LVOT peak | 89.28 | cm/s | [facility] | | | mark | | | | | + +--------+ + + + | LVOT peak | 22.47 | cm | [facility] | | | VTI | | | | | + +--------+ + + + | AV peak mark | 197.76 | cm/s | [facility] | | + +--------+ + + + | AV VTI | 40.26 | cm | [facility] | | + +--------+ + + + | AV peak | 15.64 | mmHg | [facility] | | | gradient | | | | | + +--------+ + + + | MV peak | 8.05 | mmHg | [facility] | | | gradient | | | | | + +--------+ + + + | MV Pressure | 75.41 | msec | [facility] | | | 1/2 time | | | | | + +--------+ + + + | LA Volume | 21 | mL/m2 | [facility] | | | Index | | | | | + +--------+ + + + | AV LVOT | 3.19 | mmHg | [facility] | | | Peak | | | | | | Gradient | | | | | + +--------+ + + + | AV LVOT | 1.87 | mmHg | [facility] | | | Mean | | | | | | Gradient | | | | | + +--------+ + + + | TR Peak | 72 | mmHg | [facility] | | | Gradient | | | | | + +--------+ + + + | TR Velocity | 425.49 | cm/s | [facility] | | + +--------+ + + + | LV | 6.34 | cm | [facility] | | | Diastolic | | | | | | Length 4C | | | | | + +--------+ + + + | LV | 55 | % | [facility] | | | Berry's | | | | | | Biplane EF | | | | | + +--------+ + + + | LV ED | 56.12 | ml | [facility] | | | Volume | | | | | | (Berry's) | | | | | + +--------+ + + + | LV ED | 22 | ml/m2 | [facility] | | | Volume | | | | | | Index | | | | | + +--------+ + + + | LV ES | 25.32 | ml | [facility] | | | Volume | | | | | + +--------+ + + + | LVOT Mean | 65.58 | cm/s | [facility] | | | Velocity | | | | | + +--------+ + + + | MV E' | 7 | cm/s | [facility] | | | Septal | | | | | | Velocity | | | | | + +--------+ + + + | MV | 290.9 | cm/s2 | [facility] | | | Deceleratio | | | | | | n [place] | | | | | + +--------+ + + + | MV | 260.04 | msec | [facility] | | | Deceleratio | | | | | | n Time | | | | | + +--------+ + + + | MV E/A | 0.67 | | [facility] | | | Ratio | | | | | + +--------+ + + + | MV Mean | 76.25 | cm/s | [facility] | | | Velocity | | | | | + +--------+ + + + | MV Peak | 112.95 | cm/s | [facility] | | | A-Wave | | | | | + +--------+ + + + | MV Peak | 75.64 | cm/s | [facility] | | | E-Wave | | | | | + +--------+ + + + | AV Mean | 140.17 | cm/s | [facility] | | | Velocity | | | | | + +--------+ + + + | RA Area | 24.96 | cm2 | [facility] | | + +--------+ + + + | LA/Aorta | 1.26 | | [facility] | | | Ratio | | | | | + +--------+ + + + | LA Area | 17.14 | cm2 | [facility] | | + +--------+ + + + | MV E/E | 10.81 | | [facility] | | | SEPTAL | | | | | + +--------+ + + + | LA Major | 0.4026 | cm | [facility] | | + +--------+ + + + | LV ES | 10 | ml/m2 | [facility] | | | Volume | | | | | | Index | | | | | + +--------+ + + + | Vitals BP | 141 | | [facility] | | | Systolic | | | | | + +--------+ + + + | Vitals BP | 65 | | [facility] | | | Diastolic | | | | | + +--------+ + + + | Vitals | 162.6 | | [facility] | | | Height | | | | | + +--------+ + + + | Vitals | 162.00 | | [facility] | | | Weight | | | | | + +--------+ + + + | Aortic Root | 2.77 | cm | [facility] | | | Diameter | | | | | + +--------+ + + + | IVS | 1.12 | cm | [facility] | | | Diastolic | | | | | | Thickness | | | | | | MM | | | | | + +--------+ + + + | LVPW | 1.21 | cm | [facility] | | | Diastolic | | | | | | Thickness | | | | | | MM | | | | | + +--------+ + + + | IVS | 1.58 | cm | [facility] | | | Systolic | | | | | | Thickness | | | | | | MM | | | | | + +--------+ + + + | LV Systolic | 2.69 | cm | [facility] | | | Diameter | | | | | | MM | | | | | + +--------+ + + + | LVPW | 1.57 | cm | [facility] | | | Systolic | | | | | | Thickness | | | | | | MM | | | | | + +--------+ + + + | AV Cusp | 1.84 | cm | [facility] | | | Seperation | | | | | | MM | | | | | + +--------+ + + + | LA Systolic | 3.48 | cm | [facility] | | | Diameter | | | | | | MM | | | | | + +--------+ + + + | TAPSE | 1.8 | cm | [facility] | | + +--------+ + + + | LVEF-TTE | 55 | % | [facility] | | | TRANSTHORAC | | | | | | IC ECHO | | | | | + +--------+ + + + | RA PRESSURE | 15 | mmHg | [facility] | | + +--------+ + + + | RVSP | 87 | mmHg | [facility] | | | Estimated | | | | | + +--------+ + + + + + | Specimen | + + | | + + + + + | Narrative | Performed At | + + + | 1. Moderate | [facility] | | right atrial dilatation.2. Normal left ventricular size with a mild | | | concentric left ventricular hypertrophy. Left ventricular systolic | | | function is preserved. LVEF is 55%.3. Grade 1 left ventricular | | | diastolic dysfunction.4. Moderate right ventricular dilatation with | | | a mild eccentric left ventricular hypertrophy. Right ventricular | | | systolic function is preserved.5. Mildly thickened and calcified | | | trileaflet aortic valve with adequate opening. There is aortic valve | | | sclerosis without significant aortic valve stenosis.6. Mildly | | | thickened and calcified mitral valve suggesting myxomatous change.7. | | | Mild mitral annular calcification.8. Mild central tricuspid valve | | | regurgitation.9. Severe pulmonary hypertension with a peak systolic | | | pressure of 85 to 90 mmHg.10. Dilated IVC without respiratory | | | collapse suggesting fluid retention.11. No previous echocardiogram | | | for comparison. | | |9. Severe pulmonary hypertension with a peak systolic pressure of 85 to | | |90 mmHg. | | |10. Dilated IVC without respiratory collapse suggesting fluid retention. | | |11. No previous echocardiogram for comparison. | | + + + + +---------+ + + | Performing | Address | City/State/Zipcode | Phone Number | | Organization | | | | + +---------+ + + | [facility] | | | | + +---------+ + + POC Glucose (10/14/2019 7:02 AM PDT) + +---------+ + + + | Component | Value | Ref Range | Performed | Pathologist | | | | | At | Signature | + +---------+ + + + | Glucose, | 146 (H) | 70 - 109 mg/dL | [facility] | | | [facility] | | | [facility] | | | [facility] | [facility] | | | | | | [facility] - | | | | | | LABORATORY | | + +---------+ + + + + + | Specimen | + + | Blood | + + + + + + + | Performing | Address | City/State/Zipcode | Phone Number | | Organization | | | | + + + + + | [facility] | [address] | [place] | [phone] | | [facility] | | [address] | | | - LABORATORY | | | | + + + + + Phosphorus (10/14/2019 4:39 AM PDT) + +---------+ + + + | Component | Value | Ref Range | Performed | Pathologist | | | | | At | Signature | + +---------+ + + + | Phosphorus | 5.5 (H) | 2.4 - 5.1 mg/dL | [facility] | | | | [facility] | [facility] | | | [facility] | | | | | | CENTER - | | | | | | LABORATORY | | + +---------+ + + + + + | Specimen | + + | Blood | + + + + + + + | Performing | Address | City/State/Zipcode | Phone Number | | Organization | | | | + + + + + | [facility] | [address] | [place] | [phone] | | [facility] | | [address] | | | - LABORATORY | | | | + + + + + Magnesium (10/14/2019 4:39 AM PDT) + +-------+ + + + | Component | Value | Ref Range | Performed | Pathologist | | | | | At | Signature | + +-------+ + + + | Magnesium | 1.6 | 1.6 - 2.6 mg/dL | [facility] | | | | | | [facility] | | | | | | [facility] | | | | | | CENTER - | | | | | | LABORATORY | | + +-------+ + + + + + | Specimen | + + | Blood | + + + + + + + | Performing | Address | City/State/Zipcode | Phone Number | | Organization | | | | + + + + + | [facility] | [address] | [place] | [phone] | | [facility] | | [address] | | | - LABORATORY | | | | + + + + + Hepatic Function Panel (10/14/2019 4:39 AM PDT) + +---------+ + + + | Component | Value | Ref Range | Performed | Pathologist | | | | | At | Signature | + +---------+ + + + | Bilirubin | 0.3 | 0.3 - 1.2 mg/dL | [facility] | | | Total | | | [facility] | | | | | | [facility] | | | | | | CENTER - | | | | | | LABORATORY | | + +---------+ + + + | Total | 6.2 | 5.7 - 8.2 g/dL | [facility] | | | Protein | | | [facility] | | | | | | [facility]ICAL | | | | | | CENTER - | | | | | | LABORATORY | | + +---------+ + + + | Albumin | 3.2 | 3.2 - 4.8 g/dL | [facility] | | | | | | [facility] | | | [facility] | | [facility] | | | | | | CENTER - | | | | | | LABORATORY | | + +---------+ + + + | AST | 111 (H) | 0 - 34 U/L | [facility] | | | | | [facility] | | | | | | [facility] | | | | | | CENTER - | | | | | | LABORATORY | | + +---------+ + + + | ALT | 78 (H) | 10 - 49 U/L | [facility] | | | | | | [facility] | | [facility] | | | [facility] | | | | | | CENTER - | | | | | | LABORATORY | | + +---------+ + + + | Alkaline | 439 (H) | 46 - 116 U/L | [facility] | | | Phosphatase | | | [facility] | | | | | | [facility]ICAL | | | | | | CENTER - | | | | | | LABORATORY | | + +---------+ + + + | Globulin | 3.0 | 2.1 - 3.8 g/dL | [facility] | | | | | | [facility] | | | | | | [facility]ICAL | | | | | | CENTER - | | | | | | LABORATORY | | + +---------+ + + + | Albumin/Annamarie | 1.1 | 0.8 - 1.9 | [facility] | | | bulin Ratio | | | [facility] | | | | | | MEDICAL | | | | | | CENTER - | | | | | | LABORATORY | | + +---------+ + + + | Bilirubin, | 0.20 | 0.00 - 0.30 | [facility] | | | Direct | | mg/dl | [facility] | | | | | | [facility] | | | | | | CENTER - | | | | | | LABORATORY | | + +---------+ + + + + + | Specimen | + + | Blood | + + + + + + + | Performing | Address | City/State/Zipcode | Phone Number | | Organization | | | | + + + + + | [facility] | [address] | [place] | [phone] | | [facility] | | [address] | | | - LABORATORY | | | | + + + + + CBC no Differential (10/14/2019 4:39 AM PDT) + + + + + + | Component | Value | Ref Range | Performed | Pathologist | | | | | At | Signature | + + + + + + | White Blood | 9.0 | 4.0 - 11.0 K/uL | [facility] | | | Cells | | | [facility] | | | | | | MEDICAL | | | | | | CENTER - | | | | | | LABORATORY | | + + + + + + | Red Blood | 3.57 (L) | 3.70 - 5.20 | [facility] | | | Cells | | M/uL | [facility] | | | | | | MEDICAL | | | | | | CENTER - | | | | | | LABORATORY | | + + + + + + | Hemoglobin | 11.2 (L) | 11.5 - 16.0 | [facility] | | | | | g/dL | [facility] | | | | | | MEDICAL | | | | | | CENTER - | | | | | | LABORATORY | | + + + + + + | Hematocrit | 35.9 | 34.0 - 47.0 % | [facility] | | | | | | [facility] | | | | | | [facility]ICAL | | | | | | CENTER - | | | | | | LABORATORY | | + + + + + + | MCV | 100.6 | 83.0 - 101.0 fL | [facility] | | | | | | [facility] | | | | | | MEDICAL | | | | | | CENTER - | | | | | | LABORATORY | | + + + + + + | MCH | 31.4 | 28.0 - 35.0 pg | [facility] | | | | | | [facility] | | | | | | MEDICAL | | | | | | CENTER - | | | | | | LABORATORY | | + + + + + + | MCHC | 31.2 (L) | 32.0 - 36.0 | [facility] | | | | | g/dL | [facility] | | | | | | MEDICAL | | | | | | CENTER - | | | | | | LABORATORY | | + + + + + + | RDW-CV | 14.4 | <15.0 % | [facility] | | | | | | [facility] | | | | | | MEDICAL | | | | | | CENTER - | | | | | | LABORATORY | | + + + + + + | RDW-SD | 52.4 (H) | 35.1 - 46.3 fL | [facility] | | | | | | [facility] | | | | | | [facility]ICAL | | | | | | CENTER - | | | | | | LABORATORY | | + + + + + + | Platelet | 160 | 140 - 440 K/uL | [facility] | | | Count | | | [facility] | | | | | | MEDICAL | | | | | | CENTER - | | | | | | LABORATORY | | + + + + + + | MPV | 11.1 | 6.5 - 12.4 fL | [facility] | | | | | | [facility] | | | | | | [facility]ICAL | | | | | | CENTER - | | | | | | LABORATORY | | + + + + + + | % nRBC | 0 | 0 - 2 per 100 | [facility] | | | | | WBCs | [facility] | | | | | | MEDICAL | | | | | | CENTER - | | | | | | LABORATORY | | + + + + + + | Absolute | 0.00 | 0.00 - 0.01 | [facility] | | | nRBC | | K/uL | [facility] | | | | | | MEDICAL | | | | | | CENTER - | | | | | | LABORATORY | | + + + + + + + + | Specimen | + + | Blood | + + + + + + + | Performing | Address | City/State/Zipcode | Phone Number | | Organization | | | | + + + + + | [facility] | [address] | [place] | [phone] | | [facility] | | [address] | | | - LABORATORY | | | | + + + + + Basic Metabolic Panel (10/14/2019 4:39 AM PDT) + + + + + + | Component | Value | Ref Range | Performed | Pathologist | | | | | At | Signature | + + + + + + | Na | 138 | 136 - 145 | [facility] | | | | | mmol/L | [facility] | | | | | | MEDICAL | | | | | | CENTER - | | | | | | LABORATORY | | + + + + + + | K | 5.3 (H) | 3.4 - 5.1 | [facility] | | | | | mmol/L | [facility] | | | | | | MEDICAL | | | | | | CENTER - | | | | | | LABORATORY | | + + + + + + | Cl | 111 (H) | 98 - 107 mmol/L | [facility] | | | | | | [facility] | | | [facility] | [facility] | | | | | | C[facility] - | | | | | | LABORATORY | | + + + + + + | CO2 | 17 (L) | 20 - 31 mmol/L | [facility] | | | | | | [facility] | | | | | | [facility] | | | | | | CENTER - | | | | | | LABORATORY | | + + + + + + | Anion Gap | 10 | 3 - 16 mmol/L | [facility] | | | | | | [facility] | | | | | | [facility]ICAL | | | | | | CENTER - | | | | | | LABORATORY | | + + + + + + | Glucose | 170 (H) | 60 - 106 mg/dL | [facility] | | | | | | [facility] | | [facility] | | | [facility]ICAL | | | | | | CENTER - | | | | | | LABORATORY | | + + + + + + | BUN | 47 (H) | 9 - 23 mg/dL | [facility] | | | | | | [facility] | | | | | | [facility]ICAL | | | | | | CENTER - | | | | | | LABORATORY | | + + + + + + | Creatinine | 3.38 (H) | 0.55 - 1.02 | [facility] | | | | | mg/dL | [facility] | | | | | | [facility] | | | | | | CENTER - | | | | | | LABORATORY | | + + + + + + | eGFR, | 14 (L)Comment: | >=60 | [facility] | | | non- | GLOMERULAR FILTRATION | mL/min/1.73m2 | [facility] | | | [place] | RATE,ESTIMATED | | MEDICAL | | | | mL/min/1.36k1Xoeg than | | CENTER - | | | | 60 Chronic kidney | | LABORATORY | | | | disease,if found over a | | | | | | 3-month period.Less than | | | | | | 15 Kidney failureFor | | | | | | | | | | | | Americans,multiply the | | | | | | calculated GFR by 1.21. | | | | | | | | | | + + + + + + | Calcium | 8.1 (L) | 8.7 - 10.4 | [facility] | | | | | mg/dL | [facility] | | | | | | MEDICAL | | | | | | CENTER - | | | | | | LABORATORY | | + + + + + + | BUN/Creatin | 13.9 | | [facility] | | | ine Ratio | | | [facility] | | | | | | MEDICAL | | | | | | CENTER - | | | | | | LABORATORY | | + + + + + + + + | Specimen | + + | Blood | + + + + + + + | Performing | Address | City/State/Zipcode | Phone Number | | Organization | | | | + + + + + | [facility] | [address] | [place] | [phone] | | [facility] | | [address] | | | - LABORATORY | | | | + + + + + Troponin I (10/14/2019 12:08 AM PDT) + + + + + + | Component | Value | Ref Range | Performed | Pathologist | | | | | At | Signature | + + + + + + | Troponin I | 0.50 ()Comment: | <0.06 ng/mL | [facility] | | | | Comment:Reference | | [facility] | | | | Ranges: 0.00-0.06 = | | MEDICAL | | | | NORMAL >0.06 = | | CENTER - | | | | SUSPICIOUS FOR | | LABORATORY | | | | MYOCARDIAL DAMAGE NOTE: | | | | | | Values greater than | | | | | | 0.78 ng/mL have been | | | | | | shown to be strongly | | | | | | associated with acute | | | | | | myocardial infarction. | | | | | | [employer] | | | | | | [employer] ([employer]) | | | | | | recommends a decision | | | | | | limit of 0.06 ng/mL for | | | | | | this assay. Results | | | | | | greater than 0.06 can | | | | | | reflect a pre-infarct | | | | | | acute coronary syndrome, | | | | | | but can also reflect | | | | | | myocardial necrosis or | | | | | | injury that is not due | | | | | | to coronary artery | | | | | | disease. Some of these | | | | | | causes are sepsis, | | | | | | hypocolemia, atrial | | | | | | fibrillation, heart | | | | | | failure, pulmonary | | | | | | embolism, myocarditis, | | | | | | myocardial contusion, | | | | | | and renal failure. The | | | | | | diagnosis of myocardial | | | | | | infarction should be | | | | | | based on a combination | | | | | | of the patient's | | | | | | clinical presentation | | | | | | and the clinical | | | | | | laboratory test results | | | | | | (especially serial | | | | | | troponin levels). | | | | | | Consistent with Previous | | | | | | Results | | | | + + + + + + + + | Specimen | + + | Blood | + + + + + + + | Performing | Address | City/State/Zipcode | Phone Number | | Organization | | | | + + + + + | [facility] | [address] | [place] | [phone] | | [facility] | | [address] | | | - LABORATORY | | | | + + + + + POC Glucose (10/13/2019 10:10 PM PDT) + +---------+ + + + | Component | Value | Ref Range | Performed | Pathologist | | | | | At | Signature | + +---------+ + + + | Glucose, | 164 (H) | 70 - 109 mg/dL | [facility] | | | POC | | | [facility] | | | | | | [facility] | | | | | | CENTER - | | | | | | LABORATORY | | + +---------+ + + + + + | Specimen | + + | Blood | + + + + + + + | Performing | Address | City/State/Zipcode | Phone Number | | Organization | | | | + + + + + | [facility] | [address] | [place] | [phone] | | [facility] | | [id number] | | | - LABORATORY | | | | + + + + + Basic Metabolic Panel (10/13/2019 6:12 PM PDT) + + + + + + | Component | Value | Ref Range | Performed | Pathologist | | | | | At | Signature | + + + + + + | Na | 136 | 136 - 145 | [facility] | | | | | mmol/L | [facility] | | | | | | [facility]ICAL | | | | | | CENTER - | | | | | | LABORATORY | | + + + + + + | K | 5.1 | 3.4 - 5.1 | [facility] | | | | | mmol/L | [facility] | | | | | | [facility] | | | | | | CENTER - | | | | | | LABORATORY | | + + + + + + | Cl | 110 (H) | 98 - 107 mmol/L | [facility] | | | | | | [facility] | | | | | | [facility] | | | | | | CENTER - | | | | | | LABORATORY | | + + + + + + | CO2 | 16 (L) | 20 - 31 mmol/L | [facility] | | | | | | [facility] | | | | | | [facility] | | | | | | CENTER - | | | | | | LABORATORY | | + + + + + + | Anion Gap | 10 | 3 - 16 mmol/L | [facility] | | | | | [facility] | | | | | | [facility] | | | | | | [facility] - | | | | | | LABORATORY | | + + + + + + | Glucose | 185 (H) | 60 - 106 mg/dL | [facility] | | | | | | [facility] | [facility] | | | | [facility] | | | | | | CENTER - | | | | | | LABORATORY | | + + + + + + | BUN | 46 (H) | 9 - 23 mg/dL | [facility] | | | | | | [facility] | | | | | | [facility] | | | | | | CENTER - | | | | | | LABORATORY | | + + + + + + | Creatinine | 3.47 (H) | 0.55 - 1.02 | [facility] | | | | | mg/dL | [facility] | | | | | | [facility] | | | | | | CENTER - | | | | | | LABORATORY | | + + + + + + | eGFR, | 14 (L)Comment: | >=60 | [facility] | | | non- | GLOMERULAR FILTRATION | mL/min/1.73m2 | [facility] | | | [place] | RATE,ESTIMATED | | MEDICAL | | | | mL/min/1.13p0Wkum than | | CENTER - | | | | 60 Chronic kidney | | LABORATORY | | | | disease,if found over a | | | | | | 3-month period.Less than | | | | | | 15 Kidney failureFor | | | | | | | | | | | | Americans,multiply the | | | | | | calculated GFR by 1.21. | | | | | | | | | | + + + + + + | Calcium | 8.0 (L) | 8.7 - 10.4 | [facility] | | | | | mg/dL | [facility] | | | | | | MEDICAL | | | | | | CENTER - | | | | | | LABORATORY | | + + + + + + | BUN/Creatin | 13.3 | | [facility] | | | ine Ratio | | | [facility] | | | | | | [facility] | | | | | | CENTER - | | | | | | LABORATORY | | + + + + + + + + | Specimen | + + | Blood | + + + + + + + | Performing | Address | City/State/Zipcode | Phone Number | | Organization | | | | + + + + + | [facility] | [address] | [place] | [phone] | | [facility] | | [address] | | | - LABORATORY | | | | + + + + + Troponin I (10/13/2019 6:12 PM PDT) + + + + + + | Component | Value | Ref Range | Performed | Pathologist | | | | | At | Signature | + + + + + + | Troponin I | 0.58 ()Comment: | <0.06 ng/mL | [facility] | | | | Consistent with previous | | [facility] | | | | results. | | MEDICAL | | | | Comment:Reference | | CENTER - | | | | Ranges: 0.00-0.06 = | | LABORATORY | | | | NORMAL >0.06 = | | | | | | SUSPICIOUS FOR | | | | | | MYOCARDIAL DAMAGE NOTE: | | | | | | Values greater than | | | | | | 0.78 ng/mL have been | | | | | | shown to be strongly | | | | | | associated with acute | | | | | | myocardial infarction. | | | | | | [employer] | | | | | | Cardiology (ACC) | | | | | | recommends a decision | | | | | | limit of 0.06 ng/mL for | | | | | | this assay. Results | | | | | | greater than 0.06 can | | | | | | reflect a pre-infarct | | | | | | acute coronary syndrome, | | | | | | but can also reflect | | | | | | myocardial necrosis or | | | | | | injury that is not due | | | | | | to coronary artery | | | | | | disease. Some of these | | | | | | causes are sepsis, | | | | | | hypocolemia, atrial | | | | | | fibrillation, heart | | | | | | failure, pulmonary | | | | | | embolism, myocarditis, | | | | | | myocardial contusion, | | | | | | and renal failure. The | | | | | | diagnosis of myocardial | | | | | | infarction should be | | | | | | based on a combination | | | | | | of the patient's | | | | | | clinical presentation | | | | | | and the clinical | | | | | | laboratory test results | | | | | | (especially serial | | | | | | troponin levels). | | | | + + + + + + + + | Specimen | + + | Blood | + + + + + + + | Performing | Address | City/State/Zipcode | Phone Number | | Organization | | | | + + + + + | [facility] | [address] | [place] | [phone] | | [facility] | | [address] | | | - LABORATORY | | | | + + + + + POC Glucose (10/13/2019 4:36 PM PDT) + +---------+ + + + | Component | Value | Ref Range | Performed | Pathologist | | | | | At | Signature | + +---------+ + + + | Glucose, | 145 (H) | 70 - 109 mg/dL | [facility] | | | POC | | | [facility] | | | | | | [facility]ICAL | | | | | | CENTER - | | | | | | LABORATORY | | + +---------+ + + + + + | Specimen | + + | Blood | + + + + + + + | Performing | Address | City/State/Zipcode | Phone Number | | Organization | | | | + + + + + | [facility] | [address] | [place] | [phone] | | [facility] | | [address] | | | - LABORATORY | | | | + + + + + Troponin I (10/13/2019 1:21 PM PDT) + + + + + + | Component | Value | Ref Range | Performed | Pathologist | | | | | At | Signature | + + + + + + | Troponin I | 0.61 ()Comment: | <0.06 ng/mL | [facility] | | | | Consistent with previous | | [facility] | | | | results. | | MEDICAL | | | | Comment:Reference | | CENTER - | | | | Ranges: 0.00-0.06 = | | LABORATORY | | | | NORMAL >0.06 = | | | | | | SUSPICIOUS FOR | | | | | | MYOCARDIAL DAMAGE NOTE: | | | | | | Values greater than | | | | | | 0.78 ng/mL have been | | | | | | shown to be strongly | | | | | | associated with acute | | | | | | myocardial infarction. | | | | | | [employer] | | | | | | Cardiology (ACC) | | | | | | recommends a decision | | | | | | limit of 0.06 ng/mL for | | | | | | this assay. Results | | | | | | greater than 0.06 can | | | | | | reflect a pre-infarct | | | | | | acute coronary syndrome, | | | | | | but can also reflect | | | | | | myocardial necrosis or | | | | | | injury that is not due | | | | | | to coronary artery | | | | | | disease. Some of these | | | | | | causes are sepsis, | | | | | | hypocolemia, atrial | | | | | | fibrillation, heart | | | | | | failure, pulmonary | | | | | | embolism, myocarditis, | | | | | | myocardial contusion, | | | | | | and renal failure. The | | | | | | diagnosis of myocardial | | | | | | infarction should be | | | | | | based on a combination | | | | | | of the patient's | | | | | | clinical presentation | | | | | | and the clinical | | | | | | laboratory test results | | | | | | (especially serial | | | | | | troponin levels). | | | | + + + + + + + + | Specimen | + + | Blood - Right upper | | arm structure (body | | structure) | + + + + + + + | Performing | Address | City/State/Zipcode | Phone Number | | Organization | | | | + + + + + | [facility] | [address] | [place], [place] | [phone] | | [facility] | | [address] | | | - LABORATORY | | | | + + + + + XR Chest AP Portable (10/13/2019 12:39 PM PDT) + + | Specimen | + + | | + + + + + | Impressions | Performed At | + + + | Findings of fluid overload or CHF. Mild atelectasis in the | [facility] | | medial left lung base. Overlying pneumonia cannot be excluded. | | | [facility] | | + + + + + + | Narrative | Performed At | + + + | XR CHEST AP PORTABLE 10/13/2019 12:12 PM HISTORY: pulmonary | [facility] | | edema? COMPARISON: None. Findings: The heart is enlarged. | | | Aorta is normal. Mediastinum demonstrates no acute findings. | | | Pulmonary vasculature is prominent with cephalization. Mild diffuse | | | pulmonary edema is seen. Mild atelectasis is in the medial left lung | | | base. There is minimal spondylosis. | | + + + + + | Procedure Note | + + | Jeffrey, Rad Results In - 10/13/2019 3:40 PM PDT XR CHEST AP PORTABLE 10/13/2019 12:12 PM | | | | HISTORY: pulmonary edema? | | | | COMPARISON: None. | | | | Findings: | | The heart is enlarged. Aorta is normal. Mediastinum demonstrates no | | acute findings. Pulmonary vasculature is prominent with cephalization. | | Mild diffuse pulmonary edema is seen. Mild atelectasis is in the | | medial left lung base. There is minimal spondylosis. | | | | IMPRESSION: | | Findings of fluid overload or CHF. | | | | Mild atelectasis in the medial left lung base. Overlying pneumonia | | cannot be excluded. | | | | [facility] | + + + +---------+ + + | Performing | Address | City/State/Zipcode | Phone Number | | Organization | | | | + +---------+ + + | [facility] | | | | + +---------+ + + POC Glucose (10/13/2019 11:35 AM PDT) + +---------+ + + + | Component | Value | Ref Range | Performed | Pathologist | | | | | At | Signature | + +---------+ + + + | Glucose, | 154 (H) | 70 - 109 mg/dL | [facility] | | | POC | | | [facility] | | | | | | MEDICAL | | | | | | CENTER - | | | | | | LABORATORY | | + +---------+ + + + + + | Specimen | + + | Blood | + + + + + + + | Performing | Address | City/State/Zipcode | Phone Number | | Organization | | | | + + + + + | [facility] | [address] | [place] | [phone] | | [facility] | | [address] | | | - LABORATORY | | | | + + + + + TSH (10/13/2019 10:58 AM PDT) + +-------+ + + + | Component | Value | Ref Range | Performed | Pathologist | | | | | At | Signature | + +-------+ + + + | TSH | 1.01 | 0.55 - 4.78 | [facility] | | | | | uIU/mL | [facility] | | | | | | MEDICAL | | | | | | CENTER - | | | | | | LABORATORY | | + +-------+ + + + + + | Specimen | + + | Blood | + + + + + + + | Performing | Address | City/State/Zipcode | Phone Number | | Organization | | | | + + + + + | [facility] | [address] | [place] | [phone] | | [facility] | | [address] | | | - LABORATORY | | | | + + + + + Basic Metabolic Panel (10/13/2019 10:58 AM PDT) + + + + + + | Component | Value | Ref Range | Performed | Pathologist | | | | | At | Signature | + + + + + + | Na | 138 | 136 - 145 | [facility] | | | | | mmol/L | [facility] | | | | | | MEDICAL | | | | | | CENTER - | | | | | | LABORATORY | | + + + + + + | K | 5.4 (H) | 3.4 - 5.1 | [facility] | | | | | mmol/L | [facility] | | | | | | MEDICAL | | | | | | CENTER - | | | | | | LABORATORY | | + + + + + + | Cl | 109 (H) | 98 - 107 mmol/L | [facility] | | | | | | [facility] | | | | | | MEDICAL | | | | | | CENTER - | | | | | | LABORATORY | | + + + + + + | CO2 | 18 (L) | 20 - 31 mmol/L | [facility] | | | | | | [facility] | | | | | | MEDICAL | | | | | | CENTER - | | | | | | LABORATORY | | + + + + + + | Anion Gap | 11 | 3 - 16 mmol/L | [facility] | | | | | | [facility] | | | | | | MEDICAL | | | | | | CENTER - | | | | | | LABORATORY | | + + + + + + | Glucose | 163 (H) | 60 - 106 mg/dL | [facility] | | | | | | [facility] | | | | | | MEDICAL | | | | | | CENTER - | | | | | | LABORATORY | | + + + + + + | BUN | 46 (H) | 9 - 23 mg/dL | [facility] | | | | | | [facility] | | | | | | MEDICAL | | | | | | CENTER - | | | | | | LABORATORY | | + + + + + + | Creatinine | 3.55 (H) | 0.55 - 1.02 | [facility] | | | | | mg/dL | [facility] | | | | | | MEDICAL | | | | | | CENTER - | | | | | | LABORATORY | | + + + + + + | eGFR, | 13 (L)Comment: | >=60 | [facility] | | | non- | GLOMERULAR FILTRATION | mL/min/1.73m2 | [facility] | | | [place] | RATE,ESTIMATED | | MEDICAL | | | | mL/min/1.00g7Etrk than | | CENTER - | | | | 60 Chronic kidney | | LABORATORY | | | | disease,if found over a | | | | | | 3-month period.Less than | | | | | | 15 Kidney failureFor | | | | | | | | | | | | Americans,multiply the | | | | | | calculated GFR by 1.21. | | | | | | | | | | + + + + + + | Calcium | 7.8 (L) | 8.7 - 10.4 | [facility] | | | | | mg/dL | [facility] | | | | | | MEDICAL | | | | | | CENTER - | | | | | | LABORATORY | | + + + + + + | BUN/Creatin | 13.0 | | [facility] | | | ine Ratio | | | [facility] | | | | | | MEDICAL | | | | | | CENTER - | | | | | | LABORATORY | | + + + + + + + + | Specimen | + + | Blood | + + + + + + + | Performing | Address | City/State/Zipcode | Phone Number | | Organization | | | | + + + + + | [facility] | [address] | [place] | [phone] | | [facility] | | [address] | | | - LABORATORY | | | | + + + + + Osmolality, Urine (10/13/2019 10:46 AM PDT) + +-------+ + + + | Component | Value | Ref Range | Performed | Pathologist | | | | | At | Signature | + +-------+ + + + | OSMO URINE | 331 | 300-1,000 | [facility] | | | | | mOsm/kg | [facility] | | | | | | MEDICAL | | | | | | CENTER - | | | | | | LABORATORY | | + +-------+ + + + + + | Specimen | + + | Urine | + + + + + + + | Performing | Address | City/State/Zipcode | Phone Number | | Organization | | | | + + + + + | [facility] | [address] | [place], [place] | [phone] | | [facility] | | [address] | | | - LABORATORY | | | | + + + + + Sodium, Urine, Random (10/13/2019 10:46 AM PDT) + +--------+ + + + | Component | Value | Ref Range | Performed | Pathologist | | | | | At | Signature | + +--------+ + + + | Sodium, | 20 (L) | 40 - 220 mmol/L | [facility] | | | Urine | | | [facility] | | | Random | | | MEDICAL | | | | | | CENTER - | | | | | | LABORATORY | | + +--------+ + + + + + | Specimen | + + | Urine | + + + + + + + | Performing | Address | City/State/Zipcode | Phone Number | | Organization | | | | + + + + + | [facility] | [address] | [place] | [phone] | | [facility] | | [address] | | | - LABORATORY | | | | + + + + + US Renal Complete (10/13/2019 9:16 AM PDT) + + | Specimen | + + | | + + + + + | Impressions | Performed At | + + + | Limited by patient's body habitus. Lobular contour of bilateral | [facility] | | kidneys with elevated resistive index of right kidney consistent with | | | medical renal disease. Resistive index could not be obtained for the | | | left kidney. [facility] | | + + + + + + | Narrative | Performed At | + + + | US RENAL COMPLETE 10/13/2019 8:45 AM HISTORY: Acute renal | [facility] | | failure. COMPARISON: None. PROTOCOL: Jain scale and Doppler | | | images of the kidneys and bladder. FINDINGS: The study was | | | limited by the patient's body habitus. Right Kidney: There is | | | nonspecific hypoechoic tissue surrounding the kidney. Contour is | | | lobular. There is no hydronephrosis. Resistive index is 0.77, which | | | is elevated and consistent with medical renal disease. Size of the | | | kidney is 13.6 cm. Left Kidney: There is lobular contour. No | | | hydronephrosis is visualized. Resistive index could not be obtained. | | | Size of the kidney is 12.0 cm. Bladder: A Orozco catheter is | | | present with decompression of the bladder. | | + + + + + | Procedure Note | + + | Jeffrey, Rad Results In - 10/13/2019 1:06 PM PDT US RENAL COMPLETE 10/13/2019 8:45 AM | | | | HISTORY: Acute renal failure. | | | | COMPARISON: None. | | | | PROTOCOL: Jain scale and Doppler images of the kidneys and bladder. | | | | FINDINGS: | | The study was limited by the patient's body habitus. | | | | Right Kidney: There is nonspecific hypoechoic tissue surrounding the | | kidney. Contour is lobular. There is no hydronephrosis. Resistive | | index is 0.77, which is elevated and consistent with medical renal | | disease. Size of the kidney is 13.6 cm. | | | | Left Kidney: There is lobular contour. No hydronephrosis is | | visualized. Resistive index could not be obtained. Size of the kidney | | is 12.0 cm. | | | | Bladder: A Orozco catheter is present with decompression of the | | bladder. | | | | IMPRESSION: | | Limited by patient's body habitus. | | | | Lobular contour of bilateral kidneys with elevated resistive index of | | right kidney consistent with medical renal disease. Resistive index | | could not be obtained for the left kidney. | | | | [facility] | + + + +---------+ + + | Performing | Address | City/State/Zipcode | Phone Number | | Organization | | | | + +---------+ + + | [facility] | | | | + +---------+ + + ECG 12 lead (10/13/2019 8:36 AM PDT) + + + + + + | Component | Value | Ref Range | Performed | Pathologist | | | | | At | Signature | + + + + + + | VENTRICULAR | 80 | BPM | [facility] | | | RATE EKG | | | | | + + + + + + | ATRIAL RATE | 80 | BPM | [facility] | | + + + + + + | P-R | 178 | ms | [facility] | | | INTERVAL | | | | | + + + + + + | QRS | 144 | ms | [facility] | | | DURATION | | | | | + + + + + + | Q-T | 408 | ms | [facility] | | | INTERVAL | | | | | + + + + + + | Q-T | 470 | ms | [facility] | | | INTERVAL | | | | | | (CORRECTED) | | | | | + + + + + + | P WAVE AXIS | 28 | degrees | [facility] | | + + + + + + | QRS AXIS | 110 | degrees | [facility] | | + + + + + + | T AXIS | -31 | degrees | [facility] | | + + + + + + | INTERPRETAT | Normal sinus rhythmLow | | [facility] | | | ION TEXT | voltage QRSRight bundle | | | | | | branch blockLeft | | | | | | posterior fascicular | | | | | | blockNonspecific T wave | | | | | | abnormality Lateral | | | | | | leadsT wave abnormality, | | | | | | consider inferior | | | | | | ischemiaAbnormal ECGNo | | | | | | previous ECGs | | | | | | availableConfirmed by | | | | | | NIKKO PICKETT MD ([id number]) | | | | | | on 10/14/2019 10:54:28 AM | | | | | | | | | | + + + + + + + + | Specimen | + + | | + + + + + | Narrative | Performed At | + + + | | | + + + + +---------+ + + | Performing | Address | City/State/Zipcode | Phone Number | | Organization | | | | + +---------+ + + | [facility] | | | | + +---------+ + + POC Glucose (10/13/2019 7:00 AM PDT) + +---------+ + + + | Component | Value | Ref Range | Performed | Pathologist | | | | | At | Signature | + +---------+ + + + | Glucose, | 132 (H) | 70 - 109 mg/dL | [facility] | | | POC | | | [facility] | | | | | | MEDICAL | | | | | | CENTER - | | | | | | LABORATORY | | + +---------+ + + + + + | Specimen | + + | Blood | + + + + + + + | Performing | Address | City/State/Zipcode | Phone Number | | Organization | | | | + + + + + | [facility] | [address] | [place] | [phone] | | [facility] | | [address] | | | - LABORATORY | | | | + + + + + Extra Lavender Top Tube (10/13/2019 6:10 AM PDT) + +-------+ + + + | Component | Value | Ref Range | Performed | Pathologist | | | | | At | Signature | + +-------+ + + + | Extra | Done | | [facility] | | | Lavender | | | [facility] | | | Top Tube | | | MEDICAL | | | | | | CENTER - | | | | | | LABORATORY | | + +-------+ + + + + + | Specimen | + + | Blood | + + + + + + + | Performing | Address | City/State/Zipcode | Phone Number | | Organization | | | | + + + + + | [facility] | [address] | [place] | [phone] | | [facility] | | [address] | | | - LABORATORY | | | | + + + + + Troponin I (10/13/2019 6:10 AM PDT) + + + + + + | Component | Value | Ref Range | Performed | Pathologist | | | | | At | Signature | + + + + + + | Troponin I | 0.74 ()Comment: | <0.06 ng/mL | [facility] | | | | Critical Result called | | [facility] | | | | to and read back by | | MEDICAL | | | | Shira Harper RN on | | CENTER - | | | | 10/13/2019 at 6:46 AM PDT | | LABORATORY | | | | by Socorro Hernandez. | | | | | | Comment:Reference | | | | | | Ranges: 0.00-0.06 = | | | | | | NORMAL >0.06 = | | | | | | SUSPICIOUS FOR | | | | | | MYOCARDIAL DAMAGE NOTE: | | | | | | Values greater than | | | | | | 0.78 ng/mL have been | | | | | | shown to be strongly | | | | | | associated with acute | | | | | | myocardial infarction. | | | | | | [employer] | | | | | | Cardiology (ACC) | | | | | | recommends a decision | | | | | | limit of 0.06 ng/mL for | | | | | | this assay. Results | | | | | | greater than 0.06 can | | | | | | reflect a pre-infarct | | | | | | acute coronary syndrome, | | | | | | but can also reflect | | | | | | myocardial necrosis or | | | | | | injury that is not due | | | | | | to coronary artery | | | | | | disease. Some of these | | | | | | causes are sepsis, | | | | | | hypocolemia, atrial | | | | | | fibrillation, heart | | | | | | failure, pulmonary | | | | | | embolism, myocarditis, | | | | | | myocardial contusion, | | | | | | and renal failure. The | | | | | | diagnosis of myocardial | | | | | | infarction should be | | | | | | based on a combination | | | | | | of the patient's | | | | | | clinical presentation | | | | | | and the clinical | | | | | | laboratory test results | | | | | | (especially serial | | | | | | troponin levels). | | | | + + + + + + + + | Specimen | + + | Blood | + + + + + + + | Performing | Address | City/State/Zipcode | Phone Number | | Organization | | | | + + + + + | [facility] | [address] | [place], [place] | [phone] | | [facility] | | [address] | | | - LABORATORY | | | | + + + + + Lactic Acid (10/13/2019 3:55 AM PDT) + +-------+ + + + | Component | Value | Ref Range | Performed | Pathologist | | | | | At | Signature | + +-------+ + + + | Lactate | 1.4 | 0.5 - 2.2 | [facility] | | | | | mmol/L | [facility] | | | | | | MEDICAL | | | | | | CENTER - | | | | | | LABORATORY | | + +-------+ + + + + + | Specimen | + + | Blood | + + + + + + + | Performing | Address | City/State/Zipcode | Phone Number | | Organization | | | | + + + + + | [facility] | [address] | [place] | [phone] | | [facility] | | [address] | | | - LABORATORY | | | | + + + + + Protime INR (10/13/2019 3:55 AM PDT) + + + + + + | Component | Value | Ref Range | Performed | Pathologist | | | | | At | Signature | + + + + + + | Prothrombin | 15.3 (H) | 11.3 - 13.9 | [facility] | | | Time | | seconds | [facility] | | | | | | MEDICAL | | | | | | CENTER - | | | | | | LABORATORY | | + + + + + + | INR | 1.1Comment: Usual Oral | 0.9 - 1.1 | [facility] | | | | Anticoagulation Range: | | [facility] | | | | 2.0 - 3.0High | | MEDICAL | | | | Level Oral | | CENTER - | | | | Anticoagulation Range: | | LABORATORY | | | | 2.5 - 3.5 | | | | + + + + + + + + | Specimen | + + | Blood | + + + + + + + | Performing | Address | City/State/Zipcode | Phone Number | | Organization | | | | + + + + + | [facility] | [address] | [place], [place] | [phone] | | [facility] | | [address] | | | - LABORATORY | | | | + + + + + Magnesium (10/13/2019 3:55 AM PDT) + +-------+ + + + | Component | Value | Ref Range | Performed | Pathologist | | | | | At | Signature | + +-------+ + + + | Magnesium | 1.6 | 1.6 - 2.6 mg/dL | [facility] | | | | | | [facility] | | | | | | MEDICAL | | | | | | CENTER - | | | | | | LABORATORY | | + +-------+ + + + + + | Specimen | + + | Blood | + + + + + + + | Performing | Address | City/State/Zipcode | Phone Number | | Organization | | | | + + + + + | [facility] | [address] | [place] | [phone] | | [facility] | | [address] | | | - LABORATORY | | | | + + + + + CBC no Differential (10/13/2019 3:55 AM PDT) + + + + + + | Component | Value | Ref Range | Performed | Pathologist | | | | | At | Signature | + + + + + + | White Blood | 11.4 (H) | 4.0 - 11.0 K/uL | [facility] | | | Cells | | | [facility] | | | | | | MEDICAL | | | | | | CENTER - | | | | | | LABORATORY | | + + + + + + | Red Blood | 3.66 (L) | 3.70 - 5.20 | [facility] | | | Cells | | M/uL | [facility] | | | | | | MEDICAL | | | | | | CENTER - | | | | | | LABORATORY | | + + + + + + | Hemoglobin | 11.6 | 11.5 - 16.0 | [facility] | | | | | g/dL | [facility] | | | | | | MEDICAL | | | | | | CENTER - | | | | | | LABORATORY | | + + + + + + | Hematocrit | 38.6 | 34.0 - 47.0 % | [facility] | | | | | | [facility] | | | | | | MEDICAL | | | | | | CENTER - | | | | | | LABORATORY | | + + + + + + | MCV | 105.5 (H) | 83.0 - 101.0 fL | [facility] | | | | | | [facility] | | | | | | MEDICAL | | | | | | CENTER - | | | | | | LABORATORY | | + + + + + + | MCH | 31.7 | 28.0 - 35.0 pg | [facility] | | | | | | [facility] | | | | | | MEDICAL | | | | | | CENTER - | | | | | | LABORATORY | | + + + + + + | MCHC | 30.1 (L) | 32.0 - 36.0 | [facility] | | | | | g/dL | [facility] | | | | | | MEDICAL | | | | | | CENTER - | | | | | | LABORATORY | | + + + + + + | RDW-CV | 14.6 | <15.0 % | [facility] | | | | | | [facility] | | | | | | MEDICAL | | | | | | CENTER - | | | | | | LABORATORY | | + + + + + + | RDW-SD | 57.0 (H) | 35.1 - 46.3 fL | [facility] | | | | | | [facility] | | | | | | MEDICAL | | | | | | CENTER - | | | | | | LABORATORY | | + + + + + + | Platelet | 173 | 140 - 440 K/uL | [facility] | | | Count | | | [facility] | | | | | | MEDICAL | | | | | | CENTER - | | | | | | LABORATORY | | + + + + + + | MPV | 11.6 | 6.5 - 12.4 fL | [facility] | | | | | | [facility] | | | | | | MEDICAL | | | | | | CENTER - | | | | | | LABORATORY | | + + + + + + | % nRBC | 0 | 0 - 2 per 100 | [facility] | | | | | WBCs | [facility] | | | | | | MEDICAL | | | | | | CENTER - | | | | | | LABORATORY | | + + + + + + | Absolute | 0.00 | 0.00 - 0.01 | [facility] | | | nRBC | | K/uL | [facility] | | | | | | MEDICAL | | | | | | CENTER - | | | | | | LABORATORY | | + + + + + + + + | Specimen | + + | Blood | + + + + + + + | Performing | Address | City/State/Zipcode | Phone Number | | Organization | | | | + + + + + | [facility] | [address] | [place] | [phone] | | [facility] | | [address] | | | - LABORATORY | | | | + + + + + Basic Metabolic Panel (10/13/2019 3:55 AM PDT) + + + + + + | Component | Value | Ref Range | Performed | Pathologist | | | | | At | Signature | + + + + + + | Na | 137 | 136 - 145 | [facility] | | | | | mmol/L | [facility] | | | | | | MEDICAL | | | | | | CENTER - | | | | | | LABORATORY | | + + + + + + | K | 6.6 ()Comment: | 3.4 - 5.1 | [facility] | | | | Critical Result called | mmol/L | [facility] | | | | to and read back by | | MEDICAL | | | | Shira Harper RN on | | CENTER - | | | | 10/13/2019 at 5:23 AM PDT | | LABORATORY | | | | by Lan Cummins. | | | | + + + + + + | Cl | 107 | 98 - 107 mmol/L | [facility] | | | | | | [facility] | | | | | | MEDICAL | | | | | | CENTER - | | | | | | LABORATORY | | + + + + + + | CO2 | 20 | 20 - 31 mmol/L | [facility] | | | | | | [facility] | | | | | | MEDICAL | | | | | | CENTER - | | | | | | LABORATORY | | + + + + + + | Anion Gap | 10 | 3 - 16 mmol/L | [facility] | | | | | | [facility] | | | | | | [facility] | | | | | | CENTER - | | | | | | LABORATORY | | + + + + + + | Glucose | 149 (H) | 60 - 106 mg/dL | [facility] | | | | | | [facility] | | | | | | [facility] | | | | | | CENTER - | | | | | | LABORATORY | | + + + + + + | BUN | 43 (H) | 9 - 23 mg/dL | [facility] | | | | | | [facility] | | | | | | [facility] | | | | | | CENTER - | | | | | | LABORATORY | | + + + + + + | Creatinine | 3.54 (H) | 0.55 - 1.02 | [facility] | | | | | mg/dL | [facility] | | | | | | MEDICAL | | | | | | CENTER - | | | | | | LABORATORY | | + + + + + + | eGFR, | 13 (L)Comment: | >=60 | [facility] | | | non- | GLOMERULAR FILTRATION | mL/min/1.73m2 | [facility] | | | [place] | RATE,ESTIMATED | | MEDICAL | | | | mL/min/[id number] than | | CENTER - | | | | 60 Chronic kidney | | LABORATORY | | | | disease,if found over a | | | | | | 3-month period.Less than | | | | | | 15 Kidney failureFor | | | | | | | | | | | | Americans,multiply the | | | | | | calculated GFR by 1.21. | | | | | | | | | | + + + + + + | Calcium | 7.9 (L) | 8.7 - 10.4 | [facility] | | | | | mg/dL | [facility] | | | | | | MEDICAL | | | | | | CENTER - | | | | | | LABORATORY | | + + + + + + | BUN/Creatin | 12.1 | | [facility] | | | ine Ratio | | | [facility] | | | | | | MEDICAL | | | | | | CENTER - | | | | | | LABORATORY | | + + + + + + + + | Specimen | + + | Blood | + + + + + + + | Performing | Address | City/State/Zipcode | Phone Number | | Organization | | | | + + + + + | [facility] | [address] | [place] | [phone] | | [facility] | | [address] | | | - LABORATORY | | | | + + + + + Troponin I (10/13/2019 12:00 AM PDT) + + + + + + | Component | Value | Ref Range | Performed | Pathologist | | | | | At | Signature | + + + + + + | Troponin I | 0.70 ()Comment: | <0.06 ng/mL | [facility] | | | | Comment:Reference | | [facility] | | | | Ranges: 0.00-0.06 = | | MEDICAL | | | | NORMAL >0.06 = | | CENTER - | | | | SUSPICIOUS FOR | | LABORATORY | | | | MYOCARDIAL DAMAGE NOTE: | | | | | | Values greater than | | | | | | 0.78 ng/mL have been | | | | | | shown to be strongly | | | | | | associated with acute | | | | | | myocardial infarction. | | | | | | [employer] | | | | | | Cardiology (ACC) | | | | | | recommends a decision | | | | | | limit of 0.06 ng/mL for | | | | | | this assay. Results | | | | | | greater than 0.06 can | | | | | | reflect a pre-infarct | | | | | | acute coronary syndrome, | | | | | | but can also reflect | | | | | | myocardial necrosis or | | | | | | injury that is not due | | | | | | to coronary artery | | | | | | disease. Some of these | | | | | | causes are sepsis, | | | | | | hypocolemia, atrial | | | | | | fibrillation, heart | | | | | | failure, pulmonary | | | | | | embolism, myocarditis, | | | | | | myocardial contusion, | | | | | | and renal failure. The | | | | | | diagnosis of myocardial | | | | | | infarction should be | | | | | | based on a combination | | | | | | of the patient's | | | | | | clinical presentation | | | | | | and the clinical | | | | | | laboratory test results | | | | | | (especially serial | | | | | | troponin levels). | | | | | | Critical Result called | | | | | | to and read back by | | | | | | Shira Harper on 10/13/2019 | | | | | | at 12:47 AM PDT by | | | | | | Lan Cummins. | | | | + + + + + + + + | Specimen | + + | Blood | + + + + + + + | Performing | Address | City/State/Zipcode | Phone Number | | Organization | | | | + + + + + | [facility] | [address] | [place] | [phone] | | [facility] | | [address] | | | - LABORATORY | | | | + + + + + Lactic Acid (10/12/2019 10:31 PM PDT) + +-------+ + + + | Component | Value | Ref Range | Performed | Pathologist | | | | | At | Signature | + +-------+ + + + | Lactate | 1.9 | 0.5 - 2.2 | [facility] | | | | | mmol/L | [facility] | | | | | | MEDICAL | | | | | | CENTER - | | | | | | LABORATORY | | + +-------+ + + + + + | Specimen | + + | Blood | + + + + + + + | Performing | Address | City/State/Zipcode | Phone Number | | Organization | | | | + + + + + | [facility] | [address] | [place] | [phone] | | [facility] | | [address] | | | - LABORATORY | | | | + + + + + Electrolyte panel (10/12/2019 10:30 PM PDT) + +---------+ + + + | Component | Value | Ref Range | Performed | Pathologist | | | | | At | Signature | + +---------+ + + + | Na | 136 | 136 - 145 | [facility] | | | | | mmol/L | [facility] | | | | | | MEDICAL | | | | | | CENTER - | | | | | | LABORATORY | | + +---------+ + + + | K | 5.6 (H) | 3.4 - 5.1 | [facility] | | | | | mmol/L | [facility] | | | | | | MEDICAL | | | | | | CENTER - | | | | | | LABORATORY | | + +---------+ + + + | Cl | 107 | 98 - 107 mmol/L | [facility] | | | | | | [facility] | | | | | | MEDICAL | | | | | | CENTER - | | | | | | LABORATORY | | + +---------+ + + + | CO2 | 20 | 20 - 31 mmol/L | [facility] | | | | | | [facility] | | | | | | MEDICAL | | | | | | CENTER - | | | | | | LABORATORY | | + +---------+ + + + | Anion Gap | 9 | 3 - 16 mmol/L | [facility] | | | | | | [facility] | | | | | | MEDICAL | | | | | | CENTER - | | | | | | LABORATORY | | + +---------+ + + + + + | Specimen | + + | Blood | + + + + + + + | Performing | Address | City/State/Zipcode | Phone Number | | Organization | | | | + + + + + | [facility] | [address] | [place] | [phone] | | [facility] | | [address] | | | - LABORATORY | | | | + + + + + POC Glucose (10/12/2019 10:09 PM PDT) + +---------+ + + + | Component | Value | Ref Range | Performed | Pathologist | | | | | At | Signature | + +---------+ + + + | Glucose, | 164 (H) | 70 - 109 mg/dL | [facility] | | | POC | | | [facility] | | | | | | MEDICAL | | | | | | CENTER - | | | | | | LABORATORY | | + +---------+ + + + + + | Specimen | + + | Blood | + + + + + + + | Performing | Address | City/State/Zipcode | Phone Number | | Organization | | | | + + + + + | [facility] | [address] | [place] | [phone] | | [facility] | | [address] | | | - LABORATORY | | | | + + + + + Hepatic Function Panel (10/12/2019 8:40 PM PDT) + +---------+ + + + | Component | Value | Ref Range | Performed | Pathologist | | | | | At | Signature | + +---------+ + + + | Bilirubin | 0.2 (L) | 0.3 - 1.2 mg/dL | [facility] | | | Total | | | [facility] | | | | | | MEDICAL | | | | | | CENTER - | | | | | | LABORATORY | | + +---------+ + + + | Total | 6.5 | 5.7 - 8.2 g/dL | [facility] | | | Protein | | | [facility] | | | | | | MEDICAL | | | | | | CENTER - | | | | | | LABORATORY | | + +---------+ + + + | Albumin | 3.3 | 3.2 - 4.8 g/dL | [facility] | | | | | | [facility] | | | | | | MEDICAL | | | | | | CENTER - | | | | | | LABORATORY | | + +---------+ + + + | AST | 56 (H) | 0 - 34 U/L | [facility] | | | | | | [facility] | | | | | | MEDICAL | | | | | | CENTER - | | | | | | LABORATORY | | + +---------+ + + + | ALT | 20 | 10 - 49 U/L | [facility] | | | | | | [facility] | | | | | | MEDICAL | | | | | | CENTER - | | | | | | LABORATORY | | + +---------+ + + + | Alkaline | 184 (H) | 46 - 116 U/L | [facility] | | | Phosphatase | | | [facility] | | | | | | MEDICAL | | | | | | CENTER - | | | | | | LABORATORY | | + +---------+ + + + | Globulin | 3.2 | 2.1 - 3.8 g/dL | [facility] | | | | | | [facility] | | | | | | MEDICAL | | | | | | CENTER - | | | | | | LABORATORY | | + +---------+ + + + | Albumin/Annamarie | 1.0 | 0.8 - 1.9 | [facility] | | | bulin Ratio | | | [facility] | | | | | | MEDICAL | | | | | | CENTER - | | | | | | LABORATORY | | + +---------+ + + + | Bilirubin, | 0.10 | 0.00 - 0.30 | [facility] | | | Direct | | mg/dl | [facility] | | | | | | MEDICAL | | | | | | CENTER - | | | | | | LABORATORY | | + +---------+ + + + + + | Specimen | + + | Blood | + + + + + + + | Performing | Address | City/State/Zipcode | Phone Number | | Organization | | | | + + + + + | [facility] | [address] | [place] | [phone] | | [facility] | | [address] | | | - LABORATORY | | | | + + + + + Basic Metabolic Panel (10/12/2019 8:40 PM PDT) + + + + + + | Component | Value | Ref Range | Performed | Pathologist | | | | | At | Signature | + + + + + + | Na | 138 | 136 - 145 | [facility] | | | | | mmol/L | [facility] | | | | | | MEDICAL | | | | | | CENTER - | | | | | | LABORATORY | | + + + + + + | K | 6.6 (HH)Comment: | 3.4 - 5.1 | [facility] | | | | Critical Result called | mmol/L | [facility] | | | | to and read back by | | MEDICAL | | | | Shira Harper RN on | | CENTER - | | | | 10/12/2019 at 9:55 PM PDT | | LABORATORY | | | | by Lan Cummins. | | | | + + + + + + | Cl | 111 (H) | 98 - 107 mmol/L | [facility] | | | | | | [facility] | | | | | | MEDICAL | | | | | | CENTER - | | | | | | LABORATORY | | + + + + + + | CO2 | 15 (L) | 20 - 31 mmol/L | [facility] | | | | | | [facility] | | | | | | MEDICAL | | | | | | CENTER - | | | | | | LABORATORY | | + + + + + + | Anion Gap | 12 | 3 - 16 mmol/L | [facility] | | | | | | [facility] | | | | | | MEDICAL | | | | | | CENTER - | | | | | | LABORATORY | | + + + + + + | Glucose | 181 (H) | 60 - 106 mg/dL | [facility] | | | | | | [facility] | | | | | | MEDICAL | | | | | | CENTER - | | | | | | LABORATORY | | + + + + + + | BUN | 42 (H) | 9 - 23 mg/dL | [facility] | | | | | | [facility] | | | | | | MEDICAL | | | | | | CENTER - | | | | | | LABORATORY | | + + + + + + | Creatinine | 3.30 (H) | 0.55 - 1.02 | [facility] | | | | | mg/dL | [facility] | | | | | | MEDICAL | | | | | | CENTER - | | | | | | LABORATORY | | + + + + + + | eGFR, | 14 (L)Comment: | >=60 | [facility] | | | non- | GLOMERULAR FILTRATION | mL/min/1.73m2 | [facility] | | | [place] | RATE,ESTIMATED | | MEDICAL | | | | mL/min/[id number] than | | CENTER - | | | | 60 Chronic kidney | | LABORATORY | | | | disease,if found over a | | | | | | 3-month period.Less than | | | | | | 15 Kidney failureFor | | | | | | | | | | | | Americans,multiply the | | | | | | calculated GFR by 1.21. | | | | | | | | | | + + + + + + | Calcium | 7.8 (L) | 8.7 - 10.4 | [facility] | | | | | mg/dL | [facility] | | | | | | MEDICAL | | | | | | CENTER - | | | | | | LABORATORY | | + + + + + + | BUN/Creatin | 12.7 | | [facility] | | | ine Ratio | | | [facility] | | | | | | MEDICAL | | | | | | CENTER - | | | | | | LABORATORY | | + + + + + + + + | Specimen | + + | Blood | + + + + + + + | Performing | Address | City/State/Zipcode | Phone Number | | Organization | | | | + + + + + | [facility] | [address] | [place] | [phone] | | [facility] | | [address] | | | - LABORATORY | | | | + + + + + CBC with Differential (10/12/2019 8:40 PM PDT) + + + + + + | Component | Value | Ref Range | Performed | Pathologist | | | | | At | Signature | + + + + + + | White Blood | 13.2 (H) | 4.0 - 11.0 K/uL | [facility] | | | Cells | | | [facility] | | | | | | MEDICAL | | | | | | CENTER - | | | | | | LABORATORY | | + + + + + + | Red Blood | 3.81 | 3.70 - 5.20 | [facility] | | | Cells | | M/uL | [facility] | | | | | | MEDICAL | | | | | | CENTER - | | | | | | LABORATORY | | + + + + + + | Hemoglobin | 12.0 | 11.5 - 16.0 | [facility] | | | | | g/dL | [facility] | | | | | | MEDICAL | | | | | | CENTER - | | | | | | LABORATORY | | + + + + + + | Hematocrit | 39.1 | 34.0 - 47.0 % | [facility] | | | | | | [facility] | | | | | | MEDICAL | | | | | | CENTER - | | | | | | LABORATORY | | + + + + + + | MCV | 102.6 (H) | 83.0 - 101.0 fL | [facility] | | | | | | [facility] | | | | | | MEDICAL | | | | | | CENTER - | | | | | | LABORATORY | | + + + + + + | MCH | 31.5 | 28.0 - 35.0 pg | [facility] | | | | | | [facility] | | | | | | MEDICAL | | | | | | CENTER - | | | | | | LABORATORY | | + + + + + + | MCHC | 30.7 (L) | 32.0 - 36.0 | [facility] | | | | | g/dL | [facility] | | | | | | MEDICAL | | | | | | CENTER - | | | | | | LABORATORY | | + + + + + + | RDW-CV | 14.7 | <15.0 % | [facility] | | | | | | [facility] | | | | | | MEDICAL | | | | | | CENTER - | | | | | | LABORATORY | | + + + + + + | RDW-SD | 55.3 (H) | 35.1 - 46.3 fL | [facility] | | | | | | [facility] | | | | | | MEDICAL | | | | | | CENTER - | | | | | | LABORATORY | | + + + + + + | Platelet | 154 | 140 - 440 K/uL | [facility] | | | Count | | | [facility] | | | | | | MEDICAL | | | | | | CENTER - | | | | | | LABORATORY | | + + + + + + | MPV | 11.9 | 6.5 - 12.4 fL | [facility] | | | | | | [facility] | | | | | | MEDICAL | | | | | | CENTER - | | | | | | LABORATORY | | + + + + + + | Immature | 4.0Comment: Low PLT + | 0.9 - 11.2 % | [facility] | | | Platelet | Low IPF are consistent | | [facility] | | | Fraction | with a production | | MEDICAL | | | | disorder. Low PLT + High | | CENTER - | | | | IPF are consistent with | | LABORATORY | | | | increased platelet | | | | | | destruction. | | | | + + + + + + | % | 82.4 (H) | 45.0 - 82.0 % | [facility] | | | Neutrophils | | | [facility] | | | | | | MEDICAL | | | | | | CENTER - | | | | | | LABORATORY | | + + + + + + | % | 10.5 (L) | 20.0 - 45.0 % | [facility] | | | Lymphocytes | | | [facility] | | | | | | MEDICAL | | | | | | CENTER - | | | | | | LABORATORY | | + + + + + + | % Monocytes | 5.7 | 4.0 - 12.0 % | [facility] | | | | | | [facility] | | | | | | MEDICAL | | | | | | CENTER - | | | | | | LABORATORY | | + + + + + + | % | 0.4 | 0.0 - 5.0 % | [facility] | | | Eosinophils | | | [facility] | | | | | | MEDICAL | | | | | | CENTER - | | | | | | LABORATORY | | + + + + + + | % Basophils | 0.5 | 0.0 - 1.0 % | [facility] | | | | | | [facility] | | | | | | MEDICAL | | | | | | CENTER - | | | | | | LABORATORY | | + + + + + + | % Immature | 0.5 (H)Comment: | 0.0 - 0.4 % | [facility] | | | Granulocyte | Preliminary studies have | | [facility] | | | s | indicated the IG% | | MEDICAL | | | | and/or IG# show promise | | CENTER - | | | | as an early indicator | | LABORATORY | | | | for infection. | | | | + + + + + + | Absolute | 10.86 (H) | 1.80 - 8.50 | [facility] | | | Neutrophils | | K/uL | [facility] | | | | | | MEDICAL | | | | | | CENTER - | | | | | | LABORATORY | | + + + + + + | Absolute | 1.38 | 0.60 - 3.20 | [facility] | | | Lymphocytes | | K/uL | [facility] | | | | | | MEDICAL | | | | | | CENTER - | | | | | | LABORATORY | | + + + + + + | Absolute | 0.75 | 0.00 - 1.00 | [facility] | | | Monocytes | | K/uL | [facility] | | | | | | MEDICAL | | | | | | CENTER - | | | | | | LABORATORY | | + + + + + + | Absolute | 0.05 | 0.00 - 0.40 | [facility] | | | Eosinophils | | K/uL | [facility] | | | | | | MEDICAL | | | | | | CENTER - | | | | | | LABORATORY | | + + + + + + | Absolute | 0.06 | 0.00 - 0.10 | [facility] | | | Basophils | | K/uL | [facility] | | | | | | MEDICAL | | | | | | CENTER - | | | | | | LABORATORY | | + + + + + + | Absolute | 0.06 (H) | 0.00 - 0.03 | [facility] | | | Immature | | K/uL | [facility] | | | Granulocyte | | | MEDICAL | | | s | | | CENTER - | | | | | | LABORATORY | | + + + + + + | % nRBC | 0 | 0 - 2 per 100 | [facility] | | | | | WBCs | [facility] | | | | | | MEDICAL | | | | | | CENTER - | | | | | | LABORATORY | | + + + + + + | Absolute | 0.00 | 0.00 - 0.01 | [facility] | | | nRBC | | K/uL | [facility] | | | | | | MEDICAL | | | | | | CENTER - | | | | | | LABORATORY | | + + + + + + + + | Specimen | + + | Blood | + + + + + + + | Performing | Address | City/State/Zipcode | Phone Number | | Organization | | | | + + + + + | [facility] | [address] | [place] | [phone] | | [facility] | | [address] | | | - LABORATORY | | | | + + + + + Culture, MRSA (10/12/2019 6:38 PM PDT) + + + + + + | Component | Value | Ref Range | Performed | Pathologist | | | | | At | Signature | + + + + + + | Culture | Negative for MRSA by | | [facility] | | | | chromogenic agar method. | | [facility] | | | | | | MEDICAL | | | | | | CENTER - | | | | | | LABORATORY | | + + + + + + | Culture | 4+ Coagulase positive | | [facility] | | | | Staphylococcus | | [facility] | | | | | | MEDICAL | | | | | | CENTER - | | | | | | LABORATORY | | + + + + + + + + | Specimen | + + | Tissue - Both | | anterior nares (body | | structure) | + + + + + + + | Performing | Address | City/State/Zipcode | Phone Number | | Organization | | | | + + + + + | [facility] | [address] | [place] | [phone] | | [facility] | | [address] | | | - LABORATORY | | | | + + + + + LABS - EXTERNAL SCAN (10/12/2019 12:00 AM PDT) + + + | Narrative | Performed At | + + + | Ordered by an | | | unspecified provider. | | + + + documented in this encounter Visit Diagnoses + + | Diagnosis | + + | Elevated troponin Other abnormal blood chemistry | + + | Acute cystitis without hematuria Acute cystitis | + + | Sepsis, due to unspecified organism, unspecified whether acute organ dysfunction | | present (HCC) | + + documented in this encounter Administered Medications + +--------+ +------+------+------+ | Medication Order | MAR | Action | Dose | Rate | Site | | | Action | Date | | | | + +--------+ +------+------+------+ | albuterol 5 mg/mL concentrated | Given | 10/13/19 | 5 mg | | | | nebulizer solution 5 mg 5 mg, | | 20 8:53 | | | | | Nebulization, RT Once, Sun | | AM PDT | | | | | 10/13/19 at 0845, For 1 dose, RT | | | | | | | will administer., | | | | | | + +--------+ +------+------+------+ +---+---+ | | | +---+---+ + +-------+ +-------+---+---+ | amitriptyline (ELAVIL) tablet | Given | 10/15/19 | 20 mg | | | | 20 mg 20 mg, Oral, NIGHTLY, | | 20 9:43 | | | | | First dose on 10/12/19 at 2100 | | PM PDT | | | | + +-------+ +-------+---+---+ +-------+ +-------+---+---+ | Given | 10/14/19 | 20 mg | | | | | 20 9:24 | | | | | | PM PDT | | | | +-------+ +-------+---+---+ | Given | 10/13/19 | 20 mg | | | | | 20 9:33 | | | | | | PM PDT | | | | +-------+ +-------+---+---+ +---+---+ | | | +---+---+ + +-------+ +-------+---+---+ | atorvaSTATin (LIPITOR) tablet | Given | 10/15/19 | 20 mg | | | | 20 mg 20 mg, Oral, NIGHTLY, | | 20 9:42 | | | | | First dose on 10/12/19 at 2100 | | PM PDT | | | | + +-------+ +-------+---+---+ +-------+ +-------+---+---+ | Given | 10/13/20 | 20 mg | | | | | 20 9:23 | | | | | | PM PDT | | | | +-------+ +-------+---+---+ | Given | 10/12/20 | 20 mg | | | | | 20 9:33 | | | | | | PM PDT | | | | +-------+ +-------+---+---+ +---+---+ | | | +---+---+ + +-------+ +-----+---+---+ | calcium gluconate injection 1 g | Given | 10/13/19 | 1 g | | | | 1 g, Intravenous, ONCE, Sun | | 20 10:03 | | | | | 20 at 1015, For 1 dose | | AM PDT | | | | + +-------+ +-----+---+---+ +---+---+ | | | +---+---+ + +---------+ +-----+-------+---+ | cefTRIAXone (ROCEPHIN) 1 g in | New Bag | 10/15/19 | 1 g | 100 | | | sodium chloride 0.9% 50 mL IVPB | | 20 9:55 | | mL/hr | | | 1 g, Intravenous, Administer over | | PM PDT | | | | | 30 Minutes, EVERY 24 HOURS, | | | | | | | First dose on 10/12/19 at | | | | | | | 1915, Activate system and mix | | | | | | | before use., Indications: UTI - | | | | | | | LOWER | | | | | | + +---------+ +-----+-------+---+ +---------+ +-----+-------+---+ | New Bag | 10/14/19 | 1 g | 100 | | | | 20 9:23 | | mL/hr | | | | PM PDT | | | | +---------+ +-----+-------+---+ | New Bag | 10/13/19 | 1 g | 100 | | | | 20 10:21 | | mL/hr | | | | PM PDT | | | | +---------+ +-----+-------+---+ +---+---+ | | | +---+---+ + +-------+ +--------+---+---+ | cholecalciferol (VITAMIN D-3) | Given | 10/16/19 | 1,000 | | | | tablet 1,000 Units 1,000 Units, | | 20 8:33 | Units | | | | Oral, DAILY, First dose on Sat | | AM PDT | | | | | 10/12/19 at 1915 | | | | | | + +-------+ +--------+---+---+ +-------+ +--------+---+---+ | Given | 10/15/19 | 1,000 | | | | | 20 8:37 | Units | | | | | AM PDT | | | | +-------+ +--------+---+---+ | Given | 10/14/19 | 1,000 | | | | | 20 9:52 | Units | | | | | AM PDT | | | | +-------+ +--------+---+---+ + +---+ | | | + +---+ | dextrose 10% (D10W) infusion | | | at 50 mL/hr, Intravenous, | | | CONTINUOUS PRN, hypoglycemia, | | | Starting 10/12/19 at 1851, | | | Start infusion if unable to | | | maintain blood glucose greater | | | than 70 mg/dL after two rounds of | | | hypoglycemia treatment. Recheck | | | blood glucose 30 minutes after | | | starting D10W then at least | | | hourly and PRN until it is | | | discontinued. Call provider to | | | discuss parameters for D10W | | | discontinuation., | | + +---+ | | | + +---+ | dextrose 50% injection 12.5-25 | | | g 12.5-25 g, Intravenous, PRN, | | | Low Blood Sugar, Starting Sat | | | 10/12/19 at 1851, For blood | | | glucose 50-69 mg/dl - give 12.5 g | | | For blood glucose less than 50 | | | mg/dl - give 25 g, | | + +---+ | | | + +---+ + +-------+ +-------+---+---+ | diclofenac (VOLTAREN) EC tablet | Given | 10/16/19 | 50 mg | | | | 50 mg 50 mg, Oral, 2 TIMES | | 20 8:32 | | | | | DAILY, First dose (after last | | AM PDT | | | | | modification) on 10/13/19 at | | | | | | | 0900, Do not cut or crush., | | | | | | + +-------+ +-------+---+---+ +-------+ +-------+---+---+ | Given | 10/15/19 | 50 mg | | | | | 20 9:42 | | | | | | PM PDT | | | | +-------+ +-------+---+---+ | Given | 10/15/19 | 50 mg | | | | | 20 8:36 | | | | | | AM PDT | | | | +-------+ +-------+---+---+ +---+---+ | | | +---+---+ + +-------+ +-------+---+---+ | diclofenac (VOLTAREN) EC tablet | Given | 10/12/19 | 75 mg | | | | 75 mg 75 mg, Oral, 2 TIMES | | 20 9:44 | | | | | DAILY, First dose on 10/12/19 | | PM PDT | | | | | at 2100, Do not cut or crush., | | | | | | + +-------+ +-------+---+---+ +---+---+ | | | +---+---+ + +-------+ +--------+---+---+ | ferrous sulfate tablet 325 mg | Given | 10/16/19 | 325 mg | | | | 325 mg, Oral, DAILY WITH | | 20 8:32 | | | | | BREAKFAST, First dose on Sun | | AM PDT | | | | | 10/13/19 at 0800 | | | | | | + +-------+ +--------+---+---+ +-------+ +--------+---+---+ | Given | 10/15/19 | 325 mg | | | | | 20 8:37 | | | | | | AM PDT | | | | +-------+ +--------+---+---+ | Given | 10/14/19 | 325 mg | | | | | 20 9:52 | | | | | | AM PDT | | | | +-------+ +--------+---+---+ +---+---+ | | | +---+---+ + +-------+ +--------+---+---+ | gabapentin (NEURONTIN) capsule | Given | 10/12/19 | 600 mg | | | | 600 mg 600 mg, Oral, 4 TIMES | | 20 9:44 | | | | | DAILY, First dose on 10/12/19 | | PM PDT | | | | | at 2100 | | | | | | + +-------+ +--------+---+---+ +---+---+ | | | +---+---+ + +-------+ +--------+---+---+ | gabapentin (NEURONTIN) capsule | Given | 10/14/19 | 600 mg | | | | 600 mg 600 mg, Oral, DAILY, | | 20 9:23 | | | | | First dose (after last | | PM PDT | | | | | modification) on 10/13/19 at | | | | | | | 2100 | | | | | | + +-------+ +--------+---+---+ +-------+ +--------+---+---+ | Given | 10/13/19 | 600 mg | | | | | 20 9:33 | | | | | | PM PDT | | | | +-------+ +--------+---+---+ +---+---+ | | | +---+---+ + +-------+ +--------+---+---+ | gabapentin (NEURONTIN) capsule | Given | 10/16/19 | 600 mg | | | | 600 mg 600 mg, Oral, 2 TIMES | | 20 8:33 | | | | | DAILY, First dose (after last | | AM PDT | | | | | modification) on Mon10/15/19 at | | | | | | | 1100 | | | | | | + +-------+ +--------+---+---+ +-------+ +--------+---+---+ | Given | 10/15/19 | 600 mg | | | | | 20 9:42 | | | | | | PM PDT | | | | +-------+ +--------+---+---+ | Given | 10/15/19 | 600 mg | | | | | 20 12:27 | | | | | | PM PDT | | | | +-------+ +--------+---+---+ +---+---+ | | | +---+---+ + +-------+ +--------+---+ + | heparin 5,000 units/mL | Given | 10/16/19 | 5,000 | | Abdomen- | | injection 5,000 Units 5,000 | | 20 8:33 | Units | | LLQ | | Units, Subcutaneous, EVERY 12 | | AM PDT | | | | | HOURS, First dose on 10/12/19 | | | | | | | at 2100 | | | | | | + +-------+ +--------+---+ + +-------+ +--------+---+ + | Given | 10/15/19 | 5,000 | | Abdomen- | | | 20 9:43 | Units | | LUQ | | | PM PDT | | | | +-------+ +--------+---+ + | Given | 10/15/19 | 5,000 | | Abdomen- | | | 20 8:35 | Units | | LLQ | | | AM PDT | | | | +-------+ +--------+---+ + +---+---+ | | | +---+---+ + +-------+ + +---+---+ | HYDROcodone-acetaminophen | Given | 10/16/19 | 1 tablet | | | | (NORCO) 10-325 mg per tablet 1 | | 20 12:57 | | | | | tablet 1 tablet, Oral, EVERY 6 | | PM PDT | | | | | HOURS PRN, Pain, Starting Sat | | | | | | | 10/12/19 at 1845 | | | | | | + +-------+ + +---+---+ +-------+ + +---+---+ | Given | 10/15/19 | 1 tablet | | | | | 20 9:41 | | | | | | PM PDT | | | | +-------+ + +---+---+ | Given | 10/15/19 | 1 tablet | | | | | 20 8:37 | | | | | | AM PDT | | | | +-------+ + +---+---+ +---+---+ | | | +---+---+ + +-------+ + +---+ + | insulin glargine (LANTUS | Given | 10/15/19 | 16 Units | | Abdomen- | | SOLOSTAR) injection (pen) | 9:46 | | | RUQ | | Units 16 Units (rounded from | | PM PDT | | | | | 15.88 Units = 0.1 Units/kg/day | | | | | | | 158.8 kg), Subcutaneous, | | | | | | | NIGHTLY, First dose on Sat | | | | | | | 10/12/19 at 2100, For subcutaneous | | | | | | | use only. Basal (long acting) | | | | | | | insulin., If NPO: Decrease dose, | | | | | | | by: 50% | | | | | | + +-------+ + +---+ + +-------+ + +---+ + | Given | 10/14/19 | 16 Units | | Abdomen- | | | 20 9:18 | | | RLQ | | | PM PDT | | | | +-------+ + +---+ + | Given | 10/13/19 | 16 Units | | Abdomen- | | | 20 10:11 | | | RLQ | | | PM PDT | | | | +-------+ + +---+ + +---+---+ | | | +---+---+ + +-------+ +---------+---+ + | insulin lispro (humaLOG | Given | 10/15/19 | 2 Units | | Arm-Righ | | KWIKPEN) injection (pen) 0-12 | | 20 12:10 | | | t Upper | | Units 0-12 Units, Subcutaneous, | | PM PDT | | | | | 4 TIMES DAILY WITH MEALS & | | | | | | | NIGHTLY, First dose on Sat | | | | | | | 10/12/19 at 2100, CORRECTION | | | | | | | SCALE: Blood Glucose (BG) < | | | | | | | 150: None BG | | | | | | | 150-200: DAY: 2 units. NIGHT: | | | | | | | 0 units BG 201-250: DAY: 4 | | | | | | | units. NIGHT: 2 units BG | | | | | | | 251-300: DAY: 6 units. NIGHT: | | | | | | | 4 units BG 301-350: DAY: 8 | | | | | | | units. NIGHT: 6 units BG | | | | | | | 351-400: DAY: 10 units. NIGHT: 8 | | | | | | | units BG > 400 : DAY: 12 | | | | | | | units. NIGHT: 10 units | | | | | | | AND CALL PROVIDER | | | | | | | , Use DAY DOSE for doses | | | | | | | scheduled: AC, NPO, Daytime | | | | | | | [phone] Use NIGHT DOSE for | | | | | | | doses scheduled: HS, | | | | | | | Nighttime [phone] If the BG is | | | | | | | not checked before the patient | | | | | | | starts eating, do not give | | | | | | | correction insulin., | | | | | | + +-------+ +---------+---+ + +-------+ +---------+---+ + | Given | 10/13/19 | 2 Units | | Arm-Righ | | | 20 11:57 | | | t Upper | | | AM PDT | | | | +-------+ +---------+---+ + +---+---+ | | | +---+---+ + +-------+ +---------+---+---+ | lactobacillus GG (CULTURELLE) | Given | 10/16/19 | 1 | | | | capsule 1 capsule 1 capsule, | | 20 8:32 | capsule | | | | Oral, 2 TIMES DAILY, First dose | | AM PDT | | | | | on 10/13/19 at 0900, | | | | | | | Probiotics added by pharmacy per | | | | | | | P&T protocol Do not open or | | | | | | | crush., | | | | | | + +-------+ +---------+---+---+ +-------+ +---------+---+---+ | Given | 10/15/19 | 1 | | | | | 20 9:42 | capsule | | | | | PM PDT | | | | +-------+ +---------+---+---+ | Given | 10/15/19 | 1 | | | | | 20 8:38 | capsule | | | | | AM PDT | | | | +-------+ +---------+---+---+ +---+---+ | | | +---+---+ + +-------+ +--------+---+---+ | levothyroxine (SYNTHROID) | Given | 10/16/19 | 25 mcg | | | | tablet 25 mcg 25 mcg, Oral, | | 20 6:31 | | | | | DAILY BEFORE BREAKFAST, First | | AM PDT | | | | | dose on 10/13/19 at 0730, Give | | | | | | | before breakfast., | | | | | | + +-------+ +--------+---+---+ +-------+ +--------+---+---+ | Given | 10/15/19 | 25 mcg | | | | | 20 6:10 | | | | | | AM PDT | | | | +-------+ +--------+---+---+ | Given | 10/14/19 | 25 mcg | | | | | 20 6:59 | | | | | | AM PDT | | | | +-------+ +--------+---+---+ +---+---+ | | | +---+---+ + +---------+ +---------+---+ + | lidocaine (LIDODERM) 5% patch 1 | Patch | 10/15/19 | 1 patch | | Back-Low | | patch 1 patch, Transdermal, | Applied | 20 9:39 | | | er | | DAILY, First dose on 10/12/19 | | PM PDT | | | Middle | | at 2030, Apply for 12 hours, then | | | | | | | remove for 12 hours., Time to | | | | | | | remove patch: 9:00 AM | | | | | | + +---------+ +---------+---+ + + + +---------+---+ + | Patch Applied | 10/14/19 | 1 patch | | Back-Low | | | 20 9:26 | | | er | | | PM PDT | | | Middle | + + +---------+---+ + | Patch Applied | 10/13/19 | 1 patch | | Back-Low | | | 20 9:52 | | | er | | | PM PDT | | | Middle | + + +---------+---+ + +---+---+ | | | +---+---+ + +---------+ +---------+---+ + | lidocaine (LIDODERM) 5% patch 1 | Patch | 10/16/19 | 1 patch | | Knee-Rig | | patch 1 patch, Transdermal, | Applied | 20 8:33 | | | ht | | DAILY, First dose on Mon10/14/19 | | AM PDT | | | | | at 1015, Apply for 12 hours, then | | | | | | | remove for 12 hours., Time to | | | | | | | remove patch: 9:56 AM | | | | | | + +---------+ +---------+---+ + + + +---------+---+ + | Patch Applied | 10/15/19 | 1 patch | | Knee-Lef | | | 20 8:35 | | | t | | | AM PDT | | | | + + +---------+---+ + | Patch Applied | 10/14/19 | 1 patch | | Knee-Lef | | | 20 10:08 | | | t | | | AM PDT | | | | + + +---------+---+ + +---+---+ | | | +---+---+ + +---------+ +-----+-------+---+ | magnesium sulfate 6 g in sodium | New Bag | 10/16/19 | 6 g | 18.7 | | | chloride 0.9% 100 mL IVPB 6 g, | | 20 9:43 | | mL/hr | | | Intravenous, Administer over 6 | | AM PDT | | | | | Hours, ONCE, 10/16/19 at 0845, | | | | | | | For 1 dose, Maximum recommended | | | | | | | infusion rate = 1 gram/hour., | | | | | | + +---------+ +-----+-------+---+ +---+---+ | | | +---+---+ + +-------+ +--------+---+---+ | methocarbamol (ROBAXIN) tablet | Given | 10/16/19 | 750 mg | | | | 750 mg 750 mg, Oral, 4 TIMES | | 20 12:51 | | | | | DAILY, First dose on 10/12/19 | | PM PDT | | | | | at 2100 | | | | | | + +-------+ +--------+---+---+ +-------+ +--------+---+---+ | Given | 10/16/19 | 750 mg | | | | | 20 8:32 | | | | | | AM PDT | | | | +-------+ +--------+---+---+ | Given | 10/15/19 | 750 mg | | | | | 20 9:49 | | | | | | PM PDT | | | | +-------+ +--------+---+---+ + +---+ | | | + +---+ | metoclopramide (REGLAN) 5 mg/mL | | | injection 5 mg 5 mg, | | | Intravenous, EVERY 4 HOURS PRN, | | | Nausea, Vomiting, Starting Sun | | | 10/13/19 at 0055, Use if | | | ondansetron and prochlorperazine | | | ineffective after 30 minutes or | | | not ordered Protect from light., | | + +---+ | | | + +---+ | metoclopramide (REGLAN) tablet | | | 5 mg 5 mg, Oral, EVERY 4 HOURS | | | PRN, Nausea, Vomiting, Starting | | | 10/13/19 at 0056, Use if | | | ondansetron and prochlorperazine | | | ineffective after 30 minutes or | | | not ordered, | | + +---+ | | | + +---+ + +-------+ +---+---+---+ | miconazole (MICATIN) 2% powder | Given | 10/16/19 | | | | | Topical, 2 TIMES DAILY, First | | 20 8:36 | | | | | dose on 10/12/19 at 2245, | | AM PDT | | | | | Apply to: Groin-Right, Groin-Left | | | | | | + +-------+ +---+---+---+ +-------+ +---+---+---+ | Given | 10/15/19 | | | | | | 20 9:58 | | | | | | PM PDT | | | | +-------+ +---+---+---+ | Given | 10/15/19 | | | | | | 20 8:39 | | | | | | AM PDT | | | | +-------+ +---+---+---+ +---+---+ | | | +---+---+ + + + +---------+-------+---+ | norepinephrine in saline | Rate/Dos | 10/14/19 | 1 | 3.8 | | | (LEVOPHED) 16 mcg/mL infusion | e Change | 20 7:30 | mcg/min | mL/hr | | | 0-30 mcg/min (0-112.5 mL/hr), at | | AM PDT | | | | | 0-112.5 mL/hr, Intravenous, | | | | | | | TITRATED, Starting 10/12/19 at | | | | | | | 2045, Titration Instruction: See | | | | | | | below, Goal: MAP 65 and greater, | | | | | | | Initial dose: 1 mcg/min., | | | | | | | Increase rate by: 2 mcg/min every | | | | | | | 5 minutes., Decrease rate by: 2 | | | | | | | mcg/min every 5 minutes., *: | | | | | | | Titrate drug per order as | | | | | | | tolerated. Titration may vary | | | | | | | based on the patient | | | | | | | | | | | | | | s critical condition. | | | | | | + + + +---------+-------+---+ + + +---------+-------+---+ | Rate/Dose Change | 10/14/19 | 2 | 7.5 | | | | 20 6:53 | mcg/min | mL/hr | | | | AM PDT | | | | + + +---------+-------+---+ | Rate/Dose Change | 10/14/19 | 3 | 11.3 | | | | 20 5:25 | mcg/min | mL/hr | | | | AM PDT | | | | + + +---------+-------+---+ +---+---+ | | | +---+---+ + +---------+ +---+-------+---+ | sodium chloride 0.9% (NS) 1,000 | New Bag | 10/13/19 | | 500 | | | mL bolus Intravenous, | | 20 8:38 | | mL/hr | | | Administer over 2 Hours, ONCE, | | AM PDT | | | | | 10/13/19 at 0845, For 1 dose | | | | | | + +---------+ +---+-------+---+ + +---+ | | | + +---+ | sodium chloride 0.9% (NS) 250 | | | mL bolus Intravenous, Administer | | | over 0.5 Hours, PRN, BP, | | | Starting 10/12/19 at 2024 | | + +---+ | | | + +---+ + +-------+ +------+---+---+ | sodium polystyrene (KAYEXALATE) | Given | 10/13/19 | 30 g | | | | 15 g/60 mL suspension 30 g 30 | | 20 8:38 | | | | | g, Oral, ONCE, 10/13/19 at | | AM PDT | | | | | 0845, For 1 dose, Shake well. Do | | | | | | | not mix in orange juice. For | | | | | | | oral/enteral routes: separate | | | | | | | administration from other oral | | | | | | | medications by at least 3 hours., | | | | | | | | | | | | | + +-------+ +------+---+---+ +---+---+ | | | +---+---+ documented in this encounter
--- OUTSIDE RECORDS SUMMARY | ~2019-11-29 | XMS | Encounter Summary ---
Demographics + + + | Address | [address] | | | [place] [address] | + + + | Home Phone | | + + + | Preferred Language | Unknown | + + + | Marital Status | | + + + | Orthodoxy Affiliation | Unknown | + + + | Race | Unknown | + + + | Ethnic Group | Unknown | + + + Author + + + | Author | [facility] | | | and [place] | + + + | Organization | [facility] | | | and [place] [...] Team Providers + +------+ + | Care High Frequency Mill Operator Name | Role | Phone | + [...] | +--------+ + + + + | 11/24/ | Home Care | [facility] [place] | [facility], | TELEPHONE ENCOUNTER | | 2019 | Visit | [place] [address] | CLAIMS ANALYST [address] | | | | | [place], [place] | [place], [place] | | | | | [address] | [address] | | | | | [phone] | | | +--------+ + + + [...] | | 2019 | Visit | | CLAIMS ANALYST [address] | | | | | | [place] | | | | | | [address] | | +--------+ + + + + | 12/04/ | Home Care | Home Health Services | [facility], | | | 2019 | Visit | | CLAIMS ANALYST [address] | | | | | | [place] | | | | | | [address] | | +--------+ + + + + | 12/04/ | Office | Sleep Medicine | [facility] | | 2019 | Visit | | [facility] [address] | | | | | | [address] | | | | | | [place] [address] | | | | | | [phone] | | | | | | | | +--------+ + + + + | 12/05/ | Home Care | Home Health Services | Shoshana Caldwell, | | | 2019 | Visit | | RN | | +--------+ + + + + | 12/05/ | Home Care | Home Health Services | Eguenio Romeo | | | 2019 | Visit | | MARIUM Dean | | +--------+ + + + + | 12/09/ | Home Care | Home Health Services | [facility], | | | 2019 | Visit | | CLAIMS ANALYST [address] | | | | | | [place] | | | | | | [address] | | +--------+ + + + + [...] | | | | | | [place] [address] | | | | | | [phone] | | | | | | | [...] | | | | | [place] [address] | | | | | | [phone] | | | | | | | | +--------+ + + + + documented as of this encounter Visit Diagnoses Not on filedocumented in this encounter"
--- OUTSIDE RECORDS SUMMARY | ~2019-11-29 | XMS | Encounter Summary ---
Demographics + + + | Address | [address] | | | [place] [address] | + + + | Home Phone | | + + + | Preferred Language | Unknown | + + + | Marital Status | | + + + | Religion Affiliation | Unknown | + + + | Race | Unknown | + + + | Ethnic Group | Unknown | + + + Author + + + | Author | [facility] | | | and [place] | + + + | Organization | [facility] | | | and [...] Team Providers + +------+ + | Care Brush Head Maker Name | Role | Phone | + +------+ + | Denis Galindo DO | PCP | | + +------+ + Encounter Details +--------+ + + + + | Date | Type | Department | Care Team | Description | +--------+ + + + + | 08/04/ | [facility] | [facility] | Kei Rao | Low back pain, | | 2016 | Encounter | MED CTR XRAY [address] | unspecified back | | | | [place] | [address] [place] | pain laterality, | | | | [place] [address] | [place] [address] | with sciatica | | | | [phone] | [phone] | presence unspecified | | | | | | [...] + + documented as of this encounter Medications at Time of Discharge [...] + +---------+ + + | | Take 12.5 mg by | | 0 | | | | hydrochlorothiazide | mouth Daily. | | | | 0 | | (HYDRODIURIL) 12.5 | | | | | | | MG tablet | | | | | | [...] + + + +---------+ + + | losartan (COZAAR) | Take 50 mg by mouth | | 0 | | | | 50 mg tablet | Daily. | | | | 0 | + + + +---------+ + + documented as of this encounter Plan of Treatment +--------+ + + + + | Date | Type | Specialty | Care Team | Description | +--------+ + + + + | 12/02/ | Home Care | Home Health Services | [facility], | | | 2019 | Visit | | PREVENTIVE MEDICINE OFFICER [address] | | | | | | [place] | | | | | | [address] | | +--------+ + + + + | 12/04/ | Home Care | Home Health Services | [facility], | | | 2019 | Visit | | GIRISH [address] | | | | | | [place] | | | | | | [address] | | +--------+ + + + + | 12/04/ | Office | Sleep Medicine | [facility] | | | 2019 | Visit | | [facility] [address] | | | | | [address] | | | | | | [place] [address] | | | | | | [phone] | | | | | | | [...] | | 2019 | Visit | | PREVENTIVE MEDICINE OFFICER [address] | | | | | | [place] | | | | | | [address] | | +--------+ + + + + [...] 2019 | | | [address] [place] | | | | | | [place] [address] | | | | | | [phone] | | | | | | | [...] | | | | | | [facility] | | | | | | [place] [address] | | | | | | [phone] | | | | | | | | +--------+ + + + + documented as of this encounter Procedures + +--------+ + + + | Procedure Name | Priori | Date/Time | Associated Diagnosis | Comments | | | ty | | | | + +--------+ + + + | XR LUMBAR SPINE 4 + | Routin | 08/05/2015 | Low back pain, | Results for this | | VW | e | 9:08 AM | unspecified back | procedure are in the | | | | PDT | pain laterality, | results section. | | | | | with sciatica | | | | | | presence unspecified | | + +--------+ + + + documented in this encounter Results XR Lumbar Spine 4 + Vw (08/05/2015 9:08 AM PDT) + + | Specimen | + + | | + + + + + | Narrative | Performed At | + + + | EXAM: XR LUMBAR SPINE 4 + VW dated 08/05/2015 8:56 AM | [facility] | | HISTORY:back pain COMPARISON: Outside lumbar MRI dated May | | | 2015. FINDINGS:5 views of lumbar spine. There are 5 | [facility] | | nonrib-bearing lumbar-type vertebral bodies. In the neutral | - IMAGING | | position there is very minimal anterolisthesis of L4. Mild disc | | | narrowing at L4-L5 and L5-S1. Scattered marginal osteophytes. | | | There is some mild translation at L4 with flexion-extension. There | | | are no significant compression deformities. Soft tissues are | | | unremarkable. IMPRESSION - Lumbar spondylosis. L4 | | | spondylolisthesis showing some translation with flexion-extension. | | | Dictated and Signed by: Wesley Lino MD Electronically signed: | | | 08/05/2015 1:01 PM | | + + + + + | Procedure Note | + + | Jeffrey, Rad Results In - 08/05/2015 1:05 PM PDT EXAM: XR LUMBAR SPINE 4 + VW dated | | 08/05/2015 8:56 AMHISTORY:back painCOMPARISON: Outside lumbar MRI dated June 11, | | 2015.FINDINGS:5 views of lumbar spine. There are 5 nonrib-bearing lumbar-typevertebral | | bodies. In the neutral position there is very minimal anterolisthesisof L4. Mild disc | | narrowing at L4-L5 and L5-S1. Scattered marginal osteophytes. There is some mild | | translation at L4 with flexion-extension. There are nosignificant compression | | deformities. Soft tissues are unremarkable.IMPRESSION -Lumbar spondylosis.L4 | | spondylolisthesis showing some translation with flexion-extension.Dictated and Signed | | by: Wesley Lino MD Electronically signed: 08/05/2015 1:01 PM | | There is some mild translation at L4 with flexion-extension. There are no | |significant compression deformities. Soft tissues are unremarkable. | | | |IMPRESSION - | | | |Lumbar spondylosis. | | | |L4 spondylolisthesis showing some translation with flexion-extension. | | | |Dictated and Signed by: Wesley Lino MD | | Electronically signed: 08/05/2015 1:01 PM | + + + + + + + | Performing | Address | City/State/Zipcode | Phone Number | | Organization | | | | + + + + + | [facility] | [address] | [place] | [phone] | | [facility] | | [address] | | | - IMAGING | | | | + + + + + documented in this encounter Visit Diagnoses + + | Diagnosis | + + | Low back pain, unspecified back pain laterality, with sciatica presence unspecified | + + documented in this encounter"
--- OUTSIDE RECORDS SUMMARY | ~2019-11-29 | XMS | Encounter Summary ---
Demographics + + + | Address | [address] | | | [place] [address] | + + + | Home Phone | | + + + | Preferred Language | Unknown | + + + | Marital Status | | + + + | Muslim Affiliation | Unknown | + + + | Race | Unknown | + + + | Ethnic Group | Unknown | + + + Author + + + | Author | [facility] | | | and [place] | + + + | Organization | [facility] | | | and [place] | [...] Team Providers + +------+ + | Care Casting Machine Service Operator Name | Role | Phone | [...] | 11/06/ | Home Care | [facility] [place] | Shoshana Caldwell, | SN REPEAT VISIT | | 2019 | Visit | [place] [address] | RN | | | | | [place] | | | | | | [address] | | | | | | [phone] | | | +--------+ + + + [...] Level 3 Travel Health Notice: [place]: [place], [place], [place] ([facility]): [place], [place], [place], [place], [place], [place], [place] , [place], Greece, [place], [place], [place], [place], [place], [place], [facility], [facility], [place], [place], [place], [place], [place], [place], [place], [place], [place], [facility], [place], [facility] [place] and [place]: [place], [place], [place], [place], [place] Indicate positive screen if: Answer to any question 1-5 is yes or answer to question 6 indicates travel to a Level 3 anam tination. Consult with product development manager prior to visit. S. Pt with recent [...] | | 2019 | Visit | | CERTIFIED FRAUD EXAMINER [address] | | | | | | [place], [place] | | | | | | [address] | | +--------+ + + + + | 12/04/ | Home Care | Home Health Services | [facility], | | | 2019 | Visit | | CERTIFIED FRAUD EXAMINER [address] | | | | | | [place] | | | | | | [address] | | +--------+ + + + + | 12/04/ | Office | Sleep Medicine | Ortega Bre | | | 2019 | Visit | | [facility] [address] | | | | | | [address] [place] | | | | | | [place] [address] | | | | | | [phone] | | | | | | | [...] | | 2019 | Visit | | CERTIFIED FRAUD EXAMINER [address] | | | | | | [place] | | | | | | [address] | | +--------+ + + + + [...] 2019 | | | [address] [place] | | | | | | [place] [address] | | | | | | [phone] | | | | | | | [...] | | | | | [place] [address] | | | | | | [phone] | | | | | | | | +--------+ + + + + documented as of this encounter Visit Diagnoses Not on filedocumented in this encounter Home Health Visit - Care Plan + + | Visit Type - SN - REPEAT VISIT | | Discipline - Longterm | + + + + +--------+--------+ + + | Problem | Description | Start | Status | Goals | Interventio | | | | Date | | | ns | + + +--------+--------+ + + | Diabetes | Diabetes | | | 1 goal | 1 goal | | Disciplines: | | 10/24/19 | Active | linked to | interventio | | Longterm | | 20 | | scheduled/d | [...] | | scheduled/d | n | | Longterm | | | | ocumented | scheduled/d [...] | | scheduled/d | n | | Longterm | | | | ocumented | scheduled/d [...] | | scheduled/d | n | | Longterm | | | | ocumented | scheduled/d [...] | linked to | interventio | | Longterm | | 20 | | scheduled/d | [...] | | scheduled/d | n | | Longterm | | | | ocumented | scheduled/d [...] | | | | n | | Longterm | | | | | scheduled/d | [...] | linked to | interventio | | Longterm | | 20 | | scheduled/d | [...] +--------+--------+ + | Assess knowledge | Problem: HH SN | | | | | of meds | Medication | Comple | | | | Description: | ManagementGoal: HH | nellie | | | | Assess [...]
--- OUTSIDE RECORDS SUMMARY | ~2019-11-29 | XMS | Encounter Summary ---
Demographics + + + | Address | [address] | | | [place] [address] | + + + | Home Phone | | + + + | Preferred Language | Unknown | + + + | Marital Status | | + + + | Jewish Affiliation | Unknown | + + + | Race | Unknown | + + + | Ethnic Group | Unknown | + + + Author + + + | Author | [facility] | | | and [place] | + + + | Organization | [facility] | | | and [place] [...] Team Providers + +------+ + | Care Post Anesthesia Care Unit Nurse Name | Role | Phone | + [...] Visit | [place] [address] | VISUAL COMMUNICATIONS INSTRUCTOR [address] | | | | | [place], [place] | [place], [place] | | | | | [address] | [address] | | | | | [phone] | | | +--------+ + + + [...] | | 2019 | Visit | | VISUAL COMMUNICATIONS INSTRUCTOR [address] | | | | | | [place] | | | | | | [address] | | +--------+ + + + + | 12/04/ | Home Care | Home Health Services | [facility], | | | 2019 | Visit | | VISUAL COMMUNICATIONS INSTRUCTOR [address] | | | | | | [place] | | | | | | [address] | | +--------+ + + + + | 12/04/ | Office | Sleep Medicine | [facility] | | 2019 | Visit | | [facility] [address] | | | | | | [address] | | | | | | [place] [address] | | | | | | [phone] | | | | | | | [...] | | 2019 | Visit | | VISUAL COMMUNICATIONS INSTRUCTOR [address] | | | | | | [place] | | | | | | [address] | | +--------+ + + + + [...] | | | | | | [place] [address] | | | | | | [phone] | | | | | | | [...] | | | | | [place] [address] | | | | | | [phone] | | | | | | | | +--------+ + + + + documented as of this encounter Visit Diagnoses Not on filedocumented in this encounter"
--- OUTSIDE RECORDS SUMMARY | ~2019-11-29 | XMS | Encounter Summary ---
Demographics + + + | Address | [address] | | | [place] [address] | + + + | Home Phone | | + + + | Preferred Language | Unknown | + + + | Marital Status | | + + + | Protestant Affiliation | Unknown | + + + | Race | Unknown | + + + | Ethnic Group | Unknown | + + + Author + + + | Author | [facility] | | | and [place] | + + + | Organization | [facility] | | | and [place] [...] Team Providers + +------+ + | Care Pigment Furnace Tender Name | Role | Phone | + [...] | +--------+ + + + + | 10/28/ | Home Care | [facility] | Shoshana Caldwell, | SN REPEAT VISIT | | 2019 | Visit | [place] [address] | RN | | | | | [place] | | | | | | [address] | | | | | | [phone] | | | +--------+ + + + [...] + + + | Blood Pressure | 120/70 | 10/29/2019 10:00 AM | | | | | PDT | | + + + + + | Pulse | 78 | 10/29/2019 10:00 AM | | | | | PDT | | + + + + + | Temperature | 35.9 C (96.6 F) | 10/29/2019 10:00 AM | | | | | PDT | | + + + + + | Respiratory Rate | 16 | 10/29/2019 10:00 AM | | | | | PDT | | + + + + + | Oxygen Saturation | 93% | 10/29/2019 10:00 AM | | | | | PDT [...] Home Health - Shoshana Caldwell RN - 10/29/2019 9:47 AM PDT1) Are you or anyone you [...] last 30 days? No Screening is: Negative S P with recent hospitalization for sepsis from UTI B Pt has history of depression, weakness and obesity and lives with her A Pt is doing better, and is less sob but continues to be very weak. She still is not souleymane cking her CBG and states it is out of batteries. Rn suggested pt get batteries and to check it 4 times daily. Medications were reconciled today and pt is taking all her meds appropri ately. She reports her pain is less, but her L leg and knee are weak and painful, making he r at risk to fall again. She states she continues to not eat as she is just depressed since her mothers . yesterday was pt birthday, and she had too much sadness from mothers pa ssitim to celebrate. Mother over a year ago. Pressure/yeast issue is improved a nd pt wishes to continue with nystatin powder rather than dressing. R RN to see pt next week and weekly for CP , skin, meds and depression. Still awaiting orde rs for EXECUTIVE CHEF, RT, DT Clinician prompt: Per CDC Guidelines, positive screen for countries that have a Level 3 Travel Health Notice: [place]: [place], [place], [place] ([facility]): [place], [place], [place], [place], [place], [place], [place] , Robert, [place], [place], [place], [place], [place], [place], [place], [place], [facility], [place], [place], [place], [place], [place], [place], Isabel[place], [place], [place], [facility], [place], [facility] [place] and [place]: [place], [place], [place], [place], [place] Indicate positive screen if: Answer to any question 1-5 is yes or answer to question 6 indicates travel to a Level 3 anam tination. Consult with account manager forest service prior to visit. documented in this encounter Plan of Treatment +--------+ + + + + | Date | Type | Specialty | Care Team | Description | +--------+ + + + + | 12/02/ | Home Care | Home Health Services | [facility], | | 2019 | Visit | | CHIEF OF STAFF DOCTOR [address] | | | | | | [place], [place] | | | | | | [address] | | +--------+ + + + + | 12/04/ | Home Care | Home Health Services | [facility], | | | 2019 | Visit | | CHIEF OF STAFF DOCTOR [address] | | | | | | [place] | | | | | | [address] | | +--------+ + + + + | 12/04/ | Office | Sleep Medicine | [facility] | | | 2019 | Visit | | [facility] [address] | | | | | | [address] | | | | | | [place] [address] | | | | | | [phone] | | | | | | | [...] | | 2019 | Visit | | CHIEF OF STAFF DOCTOR [address] | | | | | | [place] | | | | | | [address] | | +--------+ + + + + | 12/11/ | Home Care | Home Health Services | Shoshana Caldwell, | | | 2019 | Visit | | RN | | +--------+ + + + + | 12/12/ | Home Care | Home Health Services | Eugenio Romeo | | | 2019 | Visit | | M, MARIUM | | +--------+ + + + + | 12/16/ | Appointment | Home Health Services | Hemal Sequeira, PT | | 2019 | | | [address] [place] | | | | | | [place] [address] | | | | | | [phone] | | | | | | | [...] | | | | | | [place] | | | | | | [place] [address] | | | | | | [phone] | | | | | | | | +--------+ + + + + documented as of this encounter Visit Diagnoses Not on filedocumented in this encounter Home Health Visit - Care Plan + + | Visit Type - SN - REPEAT VISIT | | Discipline - Assisted | + + + + +--------+--------+ + + | Problem | Description | Start | Status | Goals | Interventio | | | | Date | | | ns | + + +--------+--------+ + + | HH SHARED DIABETIC | Diabetic foot care | | | 1 goal | 1 goal | | FOOT CARE | | /06/13 | Active | linked to | interventio | | Disciplines: | | 20 | | scheduled/d | n | | Assisted | | | | ocumented | scheduled/d | | | | | | interventio | ocumented | | | | | | n | in this | | | | | | | visit | + + +--------+--------+ + + | HH SHARED FALLS | Falls | | | 1 goal | 1 goal | | Disciplines: | | 10/24/19 | Active | linked to | interventio | | Assisted, | | 20 | | scheduled/d | n | | Occupational Therapy | | | [...] | linked to | interventio | | Assisted | | 20 | | scheduled/d | n | | | | | | ocumented | scheduled/d | | | | | | interventio | ocumented | | | | | | n | in this | | | | | | | visit | + + +--------+--------+ + + | HH SN Medication | Medication | | | 1 goal | 2 goal | | Management | Management | 10/24/19 | Active | linked to | interventio | | Disciplines: | | 20 | | scheduled/d | ns | | Assisted | | | | ocumented | scheduled/d | | | | | | interventio | ocumented | | | | | | n | in this | | | | | | | visit | + + +--------+--------+ + + | HH SN Urinary | | | | 1 goal | 2 goal | | Elimination | | 10/24/19 | Active | linked to | interventio | | Disciplines: | | 20 | | scheduled/d | ns | | Assisted | | | | ocumented | scheduled/d [...] | | | | n | | Assisted | | | | | scheduled/d | | | | | | | ocumented | | | | | | | in this | | | | | | | visit | + + +--------+--------+ + + | Wound Management | Wound Management | | | 1 goal | 3 goal | | Disciplines: | | 10/24/19 | Active | linked to | interventio | | Assisted | | 20 | | scheduled/d | [...] | + + +--------+-------+ + | HH FALL PREVENTION | HH SHARED FALLS | | No | | | UNDERSTANDING | | | | | | Description: The | | | | | | patient and/or | | | | | | caregiver will | | | | | | verbalize | | | | | | understanding of | | | | | | fall prevention | | | | | | strategies. | | | | | + + [...] + + +--------+-------+ + | HH SN URINARY | HH SN Urinary | | No | | | ELIMINATION | Elimination | | | | | Description: | | | | | | Patient and/or | | | | | | caregiver will | | | | | | verbalize knowledge | | | | | | of signs and | | | | | | symptoms of urinary | | | | | | infection/complicati | | | | | | ons and when to | | | | | | report to skilled | | | | | | nurse/physician by | | | | | | end of RN episode of | | | | | | care. | | | | | + [...] + + +--------+--------+ + | Instruct in Fall | Problem: SHARED | | | | | Prevention | FALLSGoal: FALL | Comple | | | | Description: | PREVENTION | nellie | | | | Instruct the patient | UNDERSTANDING | | | | | and/or caregiver in | | | | | | fall prevention | | | | | | strategies. | | | | | + + [...] | + + +--------+--------+ + | Assess side | Problem: SN | | | Evaluate the | | effects and response | Medication | Comple | | effectiveness of the | | to medications | ManagementGoal: | nellie | | current treatment | | Description: | SN MEDICATION | | | regimen, and notify | | Evaluate the | MANAGEMENT | | | physician for the need | | adherence, | | | | for changes in the plan | | effectiveness, and | | | | of care. | | response of the | | | | | | current treatment | | | | | | regimen and notify | | | | | | physician for the | | | | | | need for changes in | | | | | | the plan of care. | | | | | + + +--------+--------+ + | Skilled assessment | Problem: HH SN | | | | | medications | Medication | Comple | | | | Description: | ManagementGoal: | nellie | | | | Assess effectiveness | SN MEDICATION | | | | | of medications. | MANAGEMENT | | | | + + +--------+--------+ + | Assess for urinary | Problem: SN | | | Assessed urinary | | status and/or | Urinary | Comple | | status. See clinical | | infection | EliminationGoal: | nellie | | assessment in today's | | Description: | SN URINARY | | | contact. Signs and | | Assess for urinary | ELIMINATION | | | symptoms of infection | | status/infection.Ref | | | | present: No | | erence Only for | | | | | | determination of a | | | | | | catheter associated | | | | | | UTIA. When | | | | | | urinalysis or | | | | | | culture is not done, | | | | | | there must be two | | | | | | of the following 4 | | | | | | signs or symptoms:1. | | | | | | Fever OR chills2. | | | | | | Flank pain OR | | | | | | suprapubic pain OR | | | | | | tenderness OR | | | | | | frequency or | | | | | | urgency3. Worsening | | | | | | of mental OR | | | | | | functional status4. | | | | | | Changes is urine | | | | | | characterB. When | | | | | | urinalysis or | | | | | | culture is done | | | | | | there must be at | | | | | | least one of the | | | | | | following | | | | | | symptoms:1. Fever OR | | | | | | chills2. Flank pain | | | | | | OR suprapubic pain | | | | | | OR tenderness | | | | | + + +--------+--------+ + | HH Instruct in S | Problem: HH SN | | | | | and S bladder | Urinary | Comple | | | | infection | EliminationGoal: HH | nellie | | | | Description: | SN URINARY | | | | | Instruct patient | ELIMINATION | | | | | and/or caregiver in | | | | | | signs and symptoms | | | | | | related to the | | | | | | patient's urinary | | | | | | status to report to | | | | | | nurse/physician. | | | | | + + [...] | + + +--------+--------+ + | HH Instruct Wound | Problem: Wound | | | | | and Skin Care | ManagementGoal: HH | Comple | | | | Description: | SN WOUND MANAGEMENT | nellie | | | | Instruct | | | | | | patient/caregiver in | | | | | | wound and skin care | | | | | | including dressing | | | | | | changes to promote | | | | | | optimal moist wound | | | | | | healing | | | | | | environment.Patient/ | | | | | | caregiver to perform | | | | | | wound care on | | | | | | non-visit days. | | | | | + + +--------+--------+ + | HH Measure Wound | Problem: Wound | | | | | Description: | ManagementGoal: HH | Comple | | | | Measure wound | SN WOUND MANAGEMENT | nellie | | | | weekly. | | | | | + + +--------+--------+ + | Wound care | Problem: Wound | | | Pt refused wound care | | Description: Wound | ManagementGoal: HH | Comple | | today, and prefers to | | | SN WOUND MANAGEMENT | nellie | | use nystatin powder. | | Type:Location: | | | | | | Wound | | | | | | care:Frequency: | | | | | | *(Dressing supplies | | | | | | may increase or | | | | | | decrease per wound | | | | | | needs) | | | | | + + +--------+--------+ + documented in this encounter"
--- OUTSIDE RECORDS SUMMARY | ~2019-11-29 | XMS | Encounter Summary ---
Demographics + + + | Address | [address] | | | [place] [address] | + + + | Home Phone | | + + + | Preferred Language | Unknown | + + + | Marital Status | | + + + | Rastafarian Affiliation | Unknown | + + + | Race | Unknown | + + + | Ethnic Group | Unknown | + + + Author + + + | Author | [facility] | | | and [place] | + + + | Organization | [facility] | | | and [place] [...] Team Providers + +------+ + | Care Closing Machine Operator Name | Role | Phone [...] | +--------+ + + + + | 10/29/ | Home Care | [facility] | Bonnie Prince, PT | CASE COMMUNICATION | | 2020 | Visit | [place] [address] | | | | | | [place] | | | | | | [address] | | | | | | [phone] | | | +--------+ + + + [...] | | 2019 | Visit | | MANAGER LOSS PREVENTION [address] | | | | | | [place] | | | | | | [address] | | +--------+ + + + + | 12/04/ | Home Care | Home Health Services | [facility], | | | 2019 | Visit | | MANAGER LOSS PREVENTION [address] | | | | | | [place] | | | | | | [address] | | +--------+ + + + + | 12/04/ | Office | Sleep Medicine | [facility] | | | 2019 | Visit | | [facility] [address] | | | | | | [address] | | | | | | [place] [address] | | | | | | [phone] | | | | | | | [...] | | 2019 | Visit | | MANAGER LOSS PREVENTION [address] | | | | | | [place] | | | | | | [address] | | +--------+ + + + + [...] Appointment | Home Health Services | Hemal Sequeira PT | | | 2019 | | | [address] [place] | | | | | | [place] [address] | | | | | | [phone] | | | | | | | [...] | | | | | [place] [address] | | | | | | [phone] | | | | | | | | +--------+ + + + + documented as of this encounter Visit Diagnoses Not on filedocumented in this encounter"
--- OUTSIDE RECORDS SUMMARY | ~2019-11-29 | XMS | Encounter Summary ---
Demographics + + + | Address | [address] | | | [place] [address] | + + + | Home Phone | | + + + | Preferred Language | Unknown | + + + | Marital Status | | + + + | Taoism Affiliation | Unknown | + + + | Race | Unknown | + + + | Ethnic Group | Unknown | + + + Author + + + | Author | [facility] | | | and [place] | + + + | Organization | [facility] | | | and [place] [...] Team Providers + +------+ + | Care Milk Route Deliverer Name | Role | Phone | + +------+ + | Denis Galindo DO | PCP | | + +------+ + Encounter Details +--------+ + + + + | Date | Type | Department | Care Team | Description | +--------+ + + + + | 07/19/ | Orders Only | [facility] | Kei Rao | Low back pain, | | 2016 | | NEUROSURGERY [address] | unspecified back | | | | [address] | [address] [place] | pain laterality, | | | | [place] [address] | [place] [address] | with sciatica | | | | [address] | [phone] | presence unspecified | | | | [phone] | | (Primary Dx) | +--------+ + + + + Social [...] | 2019 | Visit | | MANAGER ENVIRONMENTAL HEALTH [address] | | | | | | [place] | | | | | | [address] | | +--------+ + + + + | 12/04/ | Home Care | Home Health Services | [facility], | | | 2019 | Visit | | MANAGER ENVIRONMENTAL HEALTH [address] | | | | | | [place] | | | | | | [address] | | +--------+ + + + + | 12/04/ | Office | Sleep Medicine | [facility] | | | 2019 | Visit | | [facility]dana [address] | | | | | | [address] | | | | | | [place] [address] | | | | | | [phone] | | | | | | | [...] | 2019 | Visit | | MANAGER ENVIRONMENTAL HEALTH [address] | | | | | | [place] | | | | | | [address] | | +--------+ + + + + | 12/11/ | Home Care | Home Health Services | Shoshana Caldwell, | | | 2019 | Visit | | RN | | +--------+ + + + + | 12/12/ | Home Care | Home Health Services | Eugenio Romeo | | 2019 | Visit | | Jermaine, MARIUM | | +--------+ + + + + | 12/16/ | Appointment | Home Health Services | Hemal Sequeira, PT | | 2019 | | | [address] [facility] | | | | | | [place] [address] | | | | | | [phone] | | | | | | | [...] | | | | | | [place] [facility] | | | | | | [place] [address] | | | | | | [phone] | | | | | | | | +--------+ + + + + documented as of this encounter Results XR Lumbar Spine 4 + Vw (08/05/2015 9:08 AM PDT) + + | Specimen | + + | | + + + + + | Narrative | Performed At | + + + | EXAM: XR LUMBAR SPINE 4 + VW dated 08/05/2015 8:56 AM | [facility] | | HISTORY:back pain COMPARISON: Outside lumbar MRI dated May | [facility] | | 2015. FINDINGS:5 views of lumbar [...] ST. | [address] | [place] | [phone] | | [facility] | | [address] | | | - IMAGING | | | | + + + + + documented in this encounter Visit Diagnoses + + | Diagnosis | + + | Low back pain, unspecified back pain laterality, with sciatica presence unspecified - | | Primary | + + documented in this encounter"
--- OUTSIDE RECORDS SUMMARY | ~2019-11-29 | XMS | Encounter Summary ---
Demographics + + + | Address | [address] | | | [place] [address] | + + + | Home Phone | | + + + | Preferred Language | Unknown | + + + | Marital Status | | + + + | Jewish Affiliation | Unknown | + + + | Race | Unknown | + + + | Ethnic Group | Unknown | + + + Author + + + | Author | [facility] | | | and [place] | + + + | Organization | [facility] | | | and Bent[place] [...] Team Providers + +------+ + | Care Rn Birthing Name | Role | Phone | + [...] | +--------+ + + + + | 10/23/ | Home Care | [facility] [place] | Shoshana Caldwell, | SN SOC ([place]) | | 2020 | Visit | [place] [address] | RN | | | | | [place] | | | | | | [address] | | | | | | [phone] | | | +--------+ + + + [...] + + + | Blood Pressure | 130/78 | 10/24/2019 10:47 AM | | | | | PDT | | + + + + + | Pulse | 76 | 10/24/2019 10:47 AM | | | | | PDT | | + + + + + | Temperature | 36.1 C (96.9 F) | 10/24/2019 10:47 AM | | | | | PDT | | + + + + + | Respiratory Rate | 16 | 10/24/2019 10:47 AM | | | | | PDT | | + + + + + | Oxygen Saturation | 94% | 10/24/2019 10:47 AM | | | | | PDT [...] Home Health - Shoshana Caldwell RN - 10/24/2019 9:45 AM PDTVerified patient by name and d ate of . S- Patient admitted to [facility] following a hospitalization. Patient diagnosed with Sepsis from UTI and SOB. Pt is very weak. B- The patient has a hx of Morbid Obesity, Diabetes, Depression with a prior level of funct ion as follows: Required assistance with all ADL and IADL from . A- Patient presents with mobility issues: weakness, balance issues, wounds/skin/incisions: Stage 2 pressure ulcers to inner thigh posterior and medical concerns/assessment: Pt is jaret jerez, has Sob with min exertion, Medications visualized and evaluated/reconciled. The following problems were noted: none. MD notified: Yes. Initiated teaching related to side effects, taking of medications and high risk medications . Medication list in home reviewed. Patient/Caregiver instructed on effectiveness of drug t herapy, adverse drug reactions, significant side effects and how/when to report problems elias t might occur . Patient/Caregiver verbalized understanding. Summary of clinical status justifying skilled home health need: Pt main focus will be PT fo r strengthening, and Instruction on Medications, Diabetes, and assessment of SOB. Pt is doc y deconditioned, some due to weight. She reports she really got depressed after her mother a year ago. RN to request order for SENIOR PRODUCT CONSULTANT for counseling, and community resourse, RT for Resp assessment and needs, and Branch Coordinator for nutrition instruction. Pt has walker, but prefers to use a cane. She requires assitsance from for all ADL and IADL, howev er she wishes to become more independant, but has chronic pain. Pt has area in R posterior i nner thigh of yeast/ pressure ulcers with 2 small open areas. RN will request orders.RN to see pt weekly for CP asses, Diabetes, and Medication. Consents and Financial Responsibility Form explained and signed. Admission packet informati on provided and explained (home safety, fall risk, emergency preparedness, medication safety , Rights and Responsibilities, infection control, Advanced Directives information, patient/c aregiver involvement in care planning and discharge planning). Patient/caregiver instructed and provided information on pet policy, home health calendar, on-call availability/after hours service, second hand smoke policy, weapons to be secured an d homebound status/skilled need. Instruction/Education/Training provided on COVID-19: Provided education on prevention of [place] VID-19 spread [facility] protocols for prevention. Provided education on COVID-19 symptoms(Cou gh, fever, sore throat, SOB)and risk factors (underlying disease, recent travel, pt. conta ct with +COVID-19 person). Provided education on when to contact health managed care provider a nd when to seek medical care. Emergency Response Planning: In process with patient. Pt/DPOA has the admit packet whic h contains emergency response plan individualized for patient. Refer to [place] tool Patient/caregiver verbalized understanding. R- Patient would benefit from skilled HH intervention due to: wound care, risk for falls, r isk for skin breakdown and risk for rehospitalization. Patient will need PT to evaluate and develop individualized care plan, OT to evaluate and d evelop individualized care plan, SENIOR PRODUCT CONSULTANT to evaluate and develop individualized care plan and SN to evaluate and develop individualized care plan. 1) Are you or anyone you live with [...] Level 3 Travel Health Notice: [place]: [place], [place], [place] ([facility]): [place], [place], [place], [place], [place], [place], [place] , [place], Greece, [place], [place], [place], [place], [place], [place], [place], [place], [place], [place], [place], [place], [place], [place], [place], [place], [place], [place], [place], [facility] and [place]: [place], [place], [place], [place], [place] Indicate positive screen if: Answer to any question 1-5 is yes or answer to question 6 indicates travel to a Level 3 anam tination. Consult with manager commercial sales prior to visit. documented in this encounter Plan of Treatment +--------+ + + + + | Date | Type | Specialty | Care Team | Description | +--------+ + + + + | 12/02/ | Home Care | Home Health Services | [facility], | | 2019 | Visit | | SOLDER CREAM MAKER [address] | | | | | | [place], [place] | | | | | | [address] | | +--------+ + + + + | 12/04/ | Home Care | Home Health Services | [facility], | | | 2019 | Visit | | SOLDER CREAM MAKER [address] | | | | | | [place] | | | | | | [address] | | +--------+ + + + + | 12/04/ | Office | Sleep Medicine | [facility] | | | 2019 | Visit | | XAVI Saldana [address] | | | | | | [address] [place] | | | | | | [place] [address] | | | | | | [phone] | | | | | | | [...] | | 2019 | Visit | | SOLDER CREAM MAKER [address] | | | | | | [place] | | | | | | [address] | | +--------+ + + + + [...] | | | | | | [place] [address] | | | | | | [phone] | | | | | | | [...] | | | | | | [address] | | | | | | [place] [address] | | | | | | [phone] | | | | | | | | +--------+ + + + + documented as of this encounter Visit Diagnoses Not on filedocumented in this encounter Home Health Visit - Care Plan + + | Visit Type - SN - OASIS START OF CARE | | Discipline - Retirement | + + + + +--------+--------+ + + | Problem | Description | Start | Status | Goals | Interventio | | | | Date | | | ns | + + +--------+--------+ + + | Diabetes | Diabetes | | | 1 goal | 2 goal | | Disciplines: | | 10/24/19 | Active | linked to | interventio | | Retirement | | 20 | | scheduled/d | [...] | | scheduled/d | n | | Retirement | | | | ocumented | scheduled/d [...] | | scheduled/d | n | | Retirement | | | | ocumented | scheduled/d [...] | linked to | interventio | | Retirement, | | 20 | | scheduled/d | [...] | linked to | interventio | | Retirement | | 20 | | scheduled/d | [...] | | scheduled/d | n | | Retirement | | | | ocumented | scheduled/d | | | | | | interventio | ocumented | | | | | | n | in this | | | | | | | visit | + + +--------+--------+ + + | HH SN Urinary | | | | 1 goal | 1 goal | | Elimination | | 10/24/19 | Active | linked to | interventio | | Disciplines: | | 20 | | scheduled/d | n | | Retirement | | | | ocumented | scheduled/d [...] | | | | n | | Retirement | | | | | scheduled/d | [...] | linked to | interventio | | Retirement | | 20 | | scheduled/d | [...] + + +--------+--------+ + | Assess for | Problem: Diabetes | | | Assessed the patient | | diabetic | Goal: HH SN DIABETES | Comple | | for clinical | | manifestations and | | nellie | | manifestations/complicat | | diabetic | | | | ions associated with | | complications | | | | diabetes. Identified | | Description: | | | | manifestations/complicat | | Assess patient for | | | | ions: No | | clinical | | | | | | manifestations | | | | | | associated with | | | | | | Diabetes and | | | | | | identify | | | | | | complications. | | | | | + + +--------+--------+ + | Instruct diet | Problem: Diabetes | | | Instructed patient and | | Description: | Goal: [facility] DIABETES | Comple | | caregiver on low sugar | | Instruct patient | | nellie | | diet and fluid | | and/or caregiver in | | [...] Foot | Problem: SHARED | | | Feet are CDI today | | Assessment | DIABETIC FOOT | [...] | | | | infection | EliminationGoal: | nellie | | | | Description: [...]
--- OUTSIDE RECORDS SUMMARY | ~2019-11-29 | XMS | Encounter Summary ---
Demographics + + + | Address | [address] | | | [place] [address] | + + + | Home Phone | | + + + | Preferred Language | Unknown | + + + | Marital Status | | + + + | Mormonism Affiliation | Unknown | + + + | Race | Unknown | + + + | Ethnic Group | Unknown | + + + Author + + + | Author | [facility] | | | and [place] | + + + | Organization | [facility] | | | and [place] [...] Team Providers + +------+ + | Care Club Car Attendant Name | Role | Phone | + [...] | 11/07/ | Home Care | [facility] [place] | Eugenio Romeo | CASE COMMUNICATION | | 2020 | Visit | [place] [address] | [address] | | | | | ST [place], [place] | | | | | | [address] | | | | | | [phone] | | | +--------+ + + + [...] | | 2019 | Visit | | BRASS BURNISHER [address] | | | | | | [place] | | | | | | [address] | | +--------+ + + + + | 12/04/ | Home Care | Home Health Services | [facility], | | | 2019 | Visit | | BRASS BURNISHER [address] | | | | | | [place] | | | | | | [address] | | +--------+ + + + + | 12/04/ | Office | Sleep Medicine | [facility] | | | 2019 | Visit | | XAVI Saldana [address] | | | | | | [address] | | | | | | [place] [address] | | | | | | [phone] | | | | | | | [...] | | 2019 | Visit | | BRASS BURNISHER [address] | | | | | | [place], [place] | | | | | | [address] | | +--------+ + + + + [...] | | | | | | [place] [address] | | | | | | [phone] | | | | | | | [...] | | | | | [place] [address] | | | | | | [phone] | | | | | | | | +--------+ + + + + documented as of this encounter Visit Diagnoses Not on filedocumented in this encounter"
--- OUTSIDE RECORDS SUMMARY | ~2019-11-29 | XMS | Encounter Summary ---
Demographics + + + | Address | [address] | | | [place] [address] | + + + | Home Phone | | + + + | Preferred Language | Unknown | + + + | Marital Status | | + + + | Catholic Affiliation | Unknown | + + + | Race | Unknown | + + + | Ethnic Group | Unknown | + + + Author + + + | Author | [facility] | | | and [place] | + + + | Organization | [facility] [...] Team Providers + +------+ + | Care Neurology Professor Name | Role | Phone | + [...] + | 11/14/ | Home Care | [facility] [place] | Hemal Sequeira, PT | CASE COMMUNICATION | | 2020 | Visit | [place] [address] | [address] [facility] | | | | | ST [place], [place] | [place] [address] | | | | | [address] | [phone] | | | | | [phone] | | | +--------+ + + + [...] | | 2019 | Visit | | LOOM CHANGEOVER OPERATOR [address] | | | | | | [place] | | | | | | [address] | | +--------+ + + + + | 12/04/ | Home Care | Home Health Services | [facility], | | | 2019 | Visit | | LOOM CHANGEOVER OPERATOR [address] | | | | | | [place] | | | | | | [address] | | +--------+ + + + + | 12/04/ | Office | Sleep Medicine | [facility] | | 2019 | Visit | | XAVI Saldana [address] | | | | | | [address] | | | | | | [place] [address] | | | | | | [phone] | | | | | | | [...] | | 2019 | Visit | | LOOM CHANGEOVER OPERATOR [address] | | | | | | [place] | | | | | | [phone] | | +--------+ + + + + [...] [place] | | | | | | [place] [address] | | | | | | [phone] | | | | | | | [...] [address] | | | | | | [place] [address] | | | | | | [phone] | | | | | | | | +--------+ + + + + documented as of this encounter Visit Diagnoses Not on filedocumented in this encounter"
--- OUTSIDE RECORDS SUMMARY | ~2019-11-29 | XMS | Encounter Summary ---
Demographics + + + | Address | [address] | | | [place] [address] | + + + | Home Phone | | + + + | Preferred Language | Unknown | + + + | Marital Status | | + + + | Yazidi Affiliation | Unknown | + + + | Race | Unknown | + + + | Ethnic Group | Unknown | + + + Author + + + | Author | [facility] | | | and [place] | + + + | Organization | [facility] | | | and [place] [...] Team Providers + +------+ + | Care Psych Assistant Name | Role | Phone | + +------+ + | Mell Bautista | PCP | | + +------+ + Encounter Details +--------+ + + + + | Date | Type | Department | Care Team | Description | +--------+ + + + + | 10/21/ | Imaging | [facility] | Provider, | | | 2019 | Exam | [facility] | MD [address] | | | | | IMAGING [address] | [address] | | | | | [address] | [place] [address] | | | | | [place] [address] | | | | | | [phone] | | | +--------+ + + + [...] | | 2019 | Visit | | HELP DESK SUPERVISOR [address] | | | | | | [place] | | | | | | [address] | | +--------+ + + + + | 12/04/ | Home Care | Home Health Services | [facility], | | | 2019 | Visit | | HELP DESK SUPERVISOR [address] | | | | | | ST [place] | | | | | | [address] | | +--------+ + + + + | 12/04/ | Office | Sleep Medicine | [facility] | | | 2019 | Visit | | [facility]AVI Saldana [address] | | | | | | [address] | | | | | | [place] [address] | | | | | | [phone] | | | | | | | [...] | | 2019 | Visit | | HELP DESK SUPERVISOR [address] | | | | | | [place] | | | | | | [address] | | +--------+ + + + + [...] | 2019 | | | [address] [facility] | | | | | | [place] [address] | | | | | | [phone] | | | | | | | [...] | | | | | | [address] [facility] | | | | | | [place] [address] | | | | | | [phone] | | | | | | | | +--------+ + + + + documented as of this encounter Procedures + +--------+ + + + | Procedure Name | Priori | Date/Time | Associated Diagnosis | Comments | | | ty | | | | + +--------+ + + + | XR CHEST 1 VIEW | Routin | 10/12/2019 | | Results for this | | | e | 12:00 AM | | procedure are in the | | | | PDT | | results section. | + +--------+ + + + documented in this encounter Results XR Chest 1 Vw (10/12/2019 12:00 AM PDT) + + | Specimen | [...]
--- OUTSIDE RECORDS SUMMARY | ~2019-11-29 | XMS | Encounter Summary ---
Demographics + + + | Address | [address] | | | [place] [address] | + + + | Home Phone | | + + + | Preferred Language | Unknown | + + + | Marital Status | | + + + | Quaker Affiliation | Unknown | + + + | Race | Unknown | + + + | Ethnic Group | Unknown | + + + Author + + + | Author | [facility] | | | and [place] | + + + | Organization | [facility] | | | and [place] [...] Team Providers + +------+ + | Care Nail Setter Name | Role | Phone | + [...] | +--------+ + + + + | 10/27/ | Home Care | [facility] [place] | Pablo Nielsen, | CASE COMMUNICATION | | 2020 | Visit | [place] [address] | PT [address] | | | | | [place] | [place], [place] | | | | | [address] | [address] | | | | | [phone] | | | +--------+ + + + [...] | | 2019 | Visit | | CASING COOKER [address] | | | | | | [place] | | | | | | [address] | | +--------+ + + + + | 12/04/ | Home Care | Home Health Services | [facility], | | | 2019 | Visit | | CASING COOKER [address] | | | | | | [place] | | | | | | [address] | | +--------+ + + + + | 12/04/ | Office | Sleep Medicine | [facility] | | 2019 | Visit | | X[facility]I [facility]dana [address] | | | | | | [address] | | | | | | [place] [address] | | | | | | [phone] | | | | | | | [...] | | 2019 | Visit | | CASING COOKER [address] | | | | | | [place] | | | | | | [phone] | | +--------+ + + + + [...] | | | | | [place] [address] | | | | | | [phone] | | | | | | | [...] | | | | | | [place] [address] | | | | | | [phone] | | | | | | | | +--------+ + + + + documented as of this encounter Visit Diagnoses Not on filedocumented in this encounter"
--- OUTSIDE RECORDS SUMMARY | ~2019-11-29 | XMS | Encounter Summary ---
Demographics + + + | Address | [address] | | | [place] [address] | + + + | Home Phone | | + + + | Preferred Language | Unknown | + + + | Marital Status | | + + + | Quaker Affiliation | Unknown | + + + | Race | Unknown | + + + | Ethnic Group | Unknown | + + + Author + + + | Author | [facility] | | | and [place] | + + + | Organization | [facility] | | | and [place] [...] Team Providers + +------+ + | Care Humanities Professor Name | Role | Phone | [...] + | 11/21/ | Home Care | [facility] [place] | Medina Cruz, | SN REPEAT VISIT | | 2019 | Visit | [place] [address] | RN | | | | | [place] | | | | | | [address] | | | | | | [phone] | | | +--------+ + + + [...] + + + | Blood Pressure | 124/80 | 11/22/2019 12:48 PM | | | | | PDT | | + + + + + | Pulse | 78 | 11/22/2019 12:48 PM | | | | | PDT | | + + + + + | Temperature | 36.3 C (97.3 F) | 11/22/2019 12:48 PM | | | | | PDT | | + + + + + | Respiratory Rate | 12 | 11/22/2019 12:48 PM | | | | | PDT | | + + + + + | Oxygen Saturation | 95% | 11/22/2019 12:48 PM | | | | | PDT [...] this encounter Miscellaneous Notes Home Health - Medina Cruz RN - 11/22/2019 12:35 PM PDT1) Are you or anyone you live w [facility] experiencing any of the following symptoms? no [...] any question 1-6 is yes. Consult with correctional counselor/case manager prior to visit. S- mcc visit to assess medications, blood sugars, wound and oxygen. B-59 y/o obese female with several comorbidities. Lives with who is very supportive and helpfull with care. A- Talkative and pleasant, sitting in family room watching TV and talking with . No distress noted. Colour good, cheerful and interactive with conversation. Was seen by keshav blanco on Monday of this week. Started on some new medications and increased thyroid and kaylee us sulfate medication. Patient verbalizes good understanding. Patient reports episode of hyp oglycemia at office visit. Blood sugar in the 40's. Reviewed insulin dosage with patient and she is taking more than prescribed at discharge. She states "they told me that I can regula te dosage". Instructed patient to test fasting blood sugar for next several days then call bella thorpe to provider and discuss insulin dosage. She has range for dosing. Patient doesn't adh ere to a diabetic diet. Instructed in counting carbs and need to egg more vegetables, lean m eats and protein. Patient has a sweet tooth. Verbalizes she doesn't eat right. Skin almost h ealed to groin and pannus. Patient and providing care. Patient's sats much better wi th ambulation and rest. Provider ordered oxygen for night. Patient doesn't have yet. States " feeling much better, stronger and able to do some house hold chores like laundry and alitt le cooking. Allows for rest periods. Discussed patient fears about covid-19 and the area goi ng back to phase 0. Doesn't want to expose anyone. Discussed precautions that health care wo rkers are taking to ensure patient safety. Patient would like home health to call and discus s if home visits needed prior to visit. R- patient to test fasting blood sugars and report them to provider. documented in this encounter Plan of Treatment +--------+ + + + + | Date | Type | Specialty | Care Team | Description | +--------+ + + + + | 12/02/ | Home Care | Home Health Services | [facility], | | | 2019 | Visit | | STEM MAKER [address] | | | | | | [place] | | | | | | [address] | | +--------+ + + + + | 12/04/ | Home Care | Home Health Services | [facility], | | | 2019 | Visit | | STEM MAKER [address] | | | | | | [place] | | | | | | [address] | | +--------+ + + + + | 12/04/ | Office | Sleep Medicine | [facility] | | | 2019 | Visit | | X[facility]dana [address] | | | | | [address] [place] | | | | | | [place] [address] | | | | | | [phone] | | | | | | | [...] | | 2019 | Visit | | STEM MAKER [address] | | | | | | [place] | | | | | | [address] | | +--------+ + + + + [...] | | | | | | [place] [address] | | | | | | [phone] | | | | | | | [...] | 2019 | Visit | | MD Nitesh Cardoso [address] | | | | | | [address] | | | | | | [place] [address] | | | | | | [phone] | | | | | | | | +--------+ + + + + documented as of this encounter Visit Diagnoses Not on filedocumented in this encounter Home Health Visit - Care Plan + + | Visit Type - SN - REPEAT VISIT | | Discipline - Group Home | + + + + +--------+--------+ + + | Problem | Description | Start | Status | Goals | Interventio | | | | Date | | | ns | + + +--------+--------+ + + | Diabetes | Diabetes | | | 1 goal | 1 goal | | Disciplines: | | 10/24/19 | Active | linked to | interventio | | Group Home | | 20 | | scheduled/d | n | | | | | | ocumented | scheduled/d | | | | | | interventio | ocumented | | | | | | n | in this | | | | | | | visit | + + +--------+--------+ + + | HH SHARED | Depression | | | 1 goal | | | DEPRESSION | | 10/24/19 | Active | linked to | | | Disciplines: | | 20 | | scheduled/d | | | Group Home | | | | ocumented | | | | | | | interventio | | | | | | | n | | + + +--------+--------+ + + | HH SHARED DIABETIC | Diabetic foot care | | | 1 goal | | | FOOT CARE | | 10/24/19 | Resolv | linked to | | | Disciplines: | | 20 | ed on | scheduled/d | | | Group Home | | | | ocumented | | | | | | 020 | interventio | | | | | | | n | | + + +--------+--------+ + + | HH SHARED FALLS | Falls | | | 1 goal | | | Disciplines: | | 10/24/19 | Resolv | linked to | | | Group Home, | | 20 | ed on | scheduled/d | | | Occupational Therapy | | | | ocumented | | | | | | 020 | interventio | | | | | | | n | | + + +--------+--------+ + + | HH SHARED PAIN | Pain | | | 1 goal | | | Disciplines: | | 10/24/19 | Active | linked to | | | Group Home | | 20 | | scheduled/d | | | | [...] | | scheduled/d | n | | Group Home | | | | ocumented | scheduled/d | | | | | | interventio | ocumented | | | | | | n | in this | | | | | | | visit | + + +--------+--------+ + + | HH SN Urinary | | | | 1 goal | | | Elimination | | 10/24/19 | Active | linked to | | | Disciplines: | | 20 | | scheduled/d | | | Group Home | | | | ocumented | | | | | | | interventio | | | | | | | n | | + + +--------+--------+ + + | Wound Management | Wound Management | | | 1 goal | | | Disciplines: | | 10/24/19 | Active | linked to | | | Group Home | | 20 | | scheduled/d | | | | [...] | | | Description: The | | Ongoin | | | | patient and/or | | g, | | | | caregiver will | | progre | | | | verbalize | | ssing | | | | understanding of the [...] | HH DEPRESSION | HH SHARED | Met | Yes | | | UNDERSTANDING | DEPRESSION | [...] | IN COMFORT | FOOT CARE | Ongoin | | | | Description: The | | g, | | | | patient and/or | | progre | | | | caregiver will | | ssing | | | | verbalize | | [...] No | | | UNDERSTANDING | | Ongoin | | | | Description: The | | g, | | | | patient and/or | | progre | | | | caregiver will | | ssing | | | | verbalize | | | | | | understanding of | | | | | | fall prevention | | | | | | strategies. | | | | | + + +--------+-------+ + | HH PAIN | HH SHARED PAIN | Met | Yes | | | Description: The | | [...] SN URINARY | HH SN Urinary | Met | Yes | | | ELIMINATION | Elimination | [...] No | | | MANAGEMENT | | Ongoin | | | | Description: | | g, | | | | Achieve clean and | | progre | | | | stable open wound | | ssing | | | | throughout episode. | | | | | + + +--------+-------+ + + + +--------+--------+ + | Intervention | Associated | Status | Varian | Visit Notes | | | Problem/Goal | | ce | | + + +--------+--------+ + | Blood glucose | Problem: Diabetes | | | Instructed patient to | | monitoring | Goal: HH SN DIABETES | Comple | | check fasting blood | | Description: SN to | | nellie | | sugar every morning and | | assess blood | | | | record. She is awaiting | | glucose levels or | | | | test strips from | | log as performed by | | | | [facility] and | | patient/caregiver. | | | | will start testing Bg. | | | | | | Verbalizes good | | | | | | understanding. | + + +--------+--------+ + | Assess knowledge | Problem: HH SN | | | Reviewed medications | | of meds | Medication | Comple | | and patient and | | Description: | ManagementGoal: HH | nellie | | verbalizes good | | Assess the patient | SN MEDICATION | | | understanding. | | and/or caregiver's | MANAGEMENT | [...]
--- OUTSIDE RECORDS SUMMARY | ~2019-11-29 | XMS | Encounter Summary ---
Demographics + + + | Address | [address] | | | [place] [address] | + + + | Home Phone | | + + + | Preferred Language | Unknown | + + + | Marital Status | | + + + | Voodoo Affiliation | Unknown | + + + | Race | Unknown | + + + | Ethnic Group | Unknown | + + + Author + + + | Author | [facility] | | | and [place] | + + + | Organization | [facility] | | | and [place] | [...] Team Providers + +------+ + | Care Mussel Farmer Name | Role | Phone | + [...] [address] | | | | | [place], [place] | | | | | | [address] | | | | | | [phone] | | | +--------+ + + + [...] | | 2019 | Visit | | ECOMMERCE MARKETING MANAGER [address] | | | | | | [place] | | | | | | [address] | | +--------+ + + + + | 12/04/ | Home Care | Home Health Services | [facility], | | | 2019 | Visit | | ECOMMERCE MARKETING MANAGER [address] | | | | | | [place] | | | | | | [address] | | +--------+ + + + + | 12/04/ | Office | Sleep Medicine | [facility] | | | 2019 | Visit | | X[facility]I [facility]dana [address] | | | | | [address] | | | | | | [place] [address] | | | | | | [phone] | | | | | | | [...] | | 2019 | Visit | | ECOMMERCE MARKETING MANAGER [address] | | | | | | [place], [place] | | | | | | [address] | | +--------+ + + + + [...] | | | | | | [place] [address] | | | | | | [phone] | | | | | | | [...] | | | | | [place] [address] | | | | | | [phone] | | | | | | | | +--------+ + + + + documented as of this encounter Visit Diagnoses Not on filedocumented in this encounter"
--- OUTSIDE RECORDS SUMMARY | ~2019-11-29 | XMS | Encounter Summary ---
Demographics + + + | Address | [address] | | | [place] [address] | + + + | Home Phone [...] Author | [facility] | | | and [place] | + + + | Organization | [facility] | | | and [place] [...] Team Providers + +------+ + | Care Worm Picker Name | Role | Phone | + [...] | | [place] [address] | [place] [address] | with sciatica | | | | [address] | [phone] | presence unspecified | | | | [phone] | | (Primary Dx) | +--------+ + [...] | | 2019 | Visit | | SUPERVISOR VENDOR QUALITY [address] | | | | | | [place] | | | | | | [address] | | +--------+ + + + + | 12/04/ | Home Care | Home Health Services | [facility], | | | 2019 | Visit | | SUPERVISOR VENDOR QUALITY [address] | | | | | | [place] | | | | | | [address] | | +--------+ + + + + | 12/04/ | Office | Sleep Medicine | [facility] | | | 2019 | Visit | | XAVI Saldana [address] | | | | [address] | | | | | | [place] [address] | | | | | | [phone] | | | | | | | [...] | | 2019 | Visit | | SUPERVISOR VENDOR QUALITY [address] | | | | | | [place] | | | | | | [address] | | +--------+ + + + + [...] | 2019 | | | [address] [facility] | | | | | | [place] [address] | | | | | | [phone] | | | | | | | [...] | | | | | | [facility] | | | | | | [place] [address] | | | | | | [phone] | | | | | | | [...] + VW dated 08/05/2015 8:56 AM | LSELEE | | HISTORY:back pain COMPARISON: Outside lumbar MRI dated May | [facility] | | 2015. FINDINGS:5 views of lumbar [...] [address] | [place] | [phone] | | [facility] | | [address] | | | - IMAGING | | | | + + + + + documented in this encounter Visit Diagnoses + + | Diagnosis | + + | Low back pain, unspecified back pain laterality, with sciatica presence unspecified - | | Primary | + + documented in this encounter"
--- OUTSIDE RECORDS SUMMARY | ~2019-11-29 | XMS | Encounter Summary ---
Demographics + + + | Address | [address] | | | [place] [address] | + + + | Home Phone | | + + + | Preferred Language | Unknown | + + + | Marital Status | | + + + | Confucianist Affiliation | Unknown | + + + | Race | Unknown | + + + | Ethnic Group | Unknown | + + + Author + + + | Author | [facility] | | | and [place] | + + + | Organization | [facility] | | | and [place] [...] Team Providers + +------+ + | Care Marinator Name | Role | Phone | + [...] 11/27/ | Home Care | [facility] [place] | Yulissa Gann, | TELEPHONE ENCOUNTER | | 2019 | Visit | [place] [address] | [place] | | | | | [place], [place] | | | | | | [address] | | | | | | [phone] | | | +--------+ + + + [...] | | 2019 | Visit | | MAIL SORTER AND DELIVERY [address] | | | | | | [place] | | | | | | [address] | | +--------+ + + + + | 12/04/ | Home Care | Home Health Services | [facility], | | | 2019 | Visit | | MAIL SORTER AND DELIVERY [address] | | | | | | [place] | | | | | | [address] | | +--------+ + + + + | 12/04/ | Office | Sleep Medicine | [facility] | | | 2019 | Visit | | XAVI Saldana [address] | | | | | | [address] | | | | | | [place] [address] | | | | | | [phone] | | | | | | | [...] | | 2019 | Visit | | MAIL SORTER AND DELIVERY [address] | | | | | | [place] | | | | | | [address] | | +--------+ + + + + [...] [place] | | | | | | [place] [address] | | | | | | [phone] | | | | | | | [...] | | | | | [place] [address] | | | | | | [phone] | | | | | | | | +--------+ + + + + documented as of this encounter Visit Diagnoses Not on filedocumented in this encounter"
--- OUTSIDE RECORDS SUMMARY | ~2019-11-29 | XMS | Encounter Summary ---
Demographics + + + | Address | [address] | | | [place] [address] | + + + | Home Phone | | + + + | Preferred Language | Unknown | + + + | Marital Status | | + + + | Faith Affiliation | Unknown | + + + | Race | Unknown | + + + | Ethnic Group | Unknown | + + + Author + + + | Author | [facility] | | | and [place] | + + + | Organization | [facility] | | | and [place] [...] Team Providers + +------+ + | Care Steward Dishwasher Name | Role | Phone | + [...] | [place] [address] | [facility], [facility] | | | | | ST [place], [place] | [phone] | | | | | [address] | | | | | | [phone] | | | +--------+ + + + [...] | | 2019 | Visit | | COMMUNITY MIDWIFE [address] | | | | | | [place] | | | | | | [address] | | +--------+ + + + + | 12/04/ | Home Care | Home Health Services | [facility], | | | 2019 | Visit | | COMMUNITY MIDWIFE [address] | | | | | | [place] | | | | | | [address] | | +--------+ + + + + | 12/04/ | Office | Sleep Medicine | [facility] | | | 2019 | Visit | | XAVI Saldana [address] | | | | | | [address] [place] | | | | | | [place] [address] | | | | | | [phone] | | | | | | | [...] [place] | | | | | | [address] | | +--------+ + + + + [...] | | | | | | [place] [address] | | | | | | [phone] | | | | | | | [...] | | | | | [place] [address] | | | | | | [phone] | | | | | | | | +--------+ + + + + documented as of this encounter Visit Diagnoses Not on filedocumented in this encounter"
--- OUTSIDE RECORDS SUMMARY | ~2019-11-29 | XMS | Encounter Summary ---
Demographics + + + | Address | [address] | | | [place] [address] | + + + | Home Phone | | + + + | Preferred Language | Unknown | + + + | Marital Status | | + + + | Gnosticism Affiliation | Unknown | + + + | Race | Unknown | + + + | Ethnic Group | Unknown | + + + Author + + + | Author | [facility] | | | and [place] | + + + | Organization | [facility] | | | and [place] [...] Team Providers + +------+ + | Care Credit Relationship Manager Name | Role | Phone | [...] | | | | [place] | | | | | | [address] | | | | | | [phone] | | | +--------+ + + + [...] | | 2019 | Visit | | DUCK BILL OPERATOR [address] | | | | | | [place] | | | | | | [address] | | +--------+ + + + + | 12/04/ | Home Care | Home Health Services | [facility], | | | 2019 | Visit | | DUCK BILL OPERATOR [address] | | | | | | [place] | | | | | | [address] | | +--------+ + + + + | 12/04/ | Office | Sleep Medicine | [facility] | | | 2019 | Visit | | XAVI Saldana [address] | | | | | [address] | | | | | | [place] [address] | | | | | | [phone] | | | | | | | [...] | | 2019 | Visit | | DUCK BILL OPERATOR [address] | | | | | | [place] | | | | | | [address] | | +--------+ + + + + [...] | | | | | | [place] [address] | | | | | | [phone] | | | | | | | [...] | | | | | [place] [address] | | | | | | [phone] | | | | | | | | +--------+ + + + + documented as of this encounter Visit Diagnoses Not on filedocumented in this encounter"
--- OUTSIDE RECORDS SUMMARY | ~2019-11-29 | XMS | Encounter Summary ---
Demographics + + + | Address | [address] | | | [place] [address] | + + + | Home Phone | | + + + | Preferred Language | Unknown | + + + | Marital Status | | + + + | Catholic Affiliation | Unknown | + + + | Race | Unknown | + + + | Ethnic Group | Unknown | + + + Author + + + | Author | [facility] | | | and [place] | + + + | Organization | [facility] | | | and [place] [...] Team Providers + +------+ + | Care School Bus Driver/Mechanic Name | Role | Phone | + [...] [place], [place] | | | | | [address] | [address] | | | | | [phone] | | | +--------+ + + + [...] | | 2019 | Visit | | LINEN SORTER [address] | | | | | | [place] | | | | | | [address] | | +--------+ + + + + | 12/04/ | Home Care | Home Health Services | [facility], | | | 2019 | Visit | | LINEN SORTER [address] | | | | | | [place] | | | | | | [address] | | +--------+ + + + + | 12/04/ | Office | Sleep Medicine | [facility] | | 2019 | Visit | | XAVI Saldana [address] | | | | | [address] [place] | | | | | | [place] [address] | | | | | | [phone] | | | | | | | [...] | | 2019 | Visit | | LINEN SORTER [address] | | | | | | [place] | | | | | | [phone] | | +--------+ + + + + [...] | | | | | [place] [address] | | | | | | [phone] | | | | | | | [...] | | | | | | [place] [address] | | | | | | [phone] | | | | | | | | +--------+ + + + + documented as of this encounter Visit Diagnoses Not on filedocumented in this encounter"
--- OUTSIDE RECORDS SUMMARY | ~2019-11-29 | XMS | Encounter Summary ---
Demographics + + + | Address | [address] | | | [place] [address] | + + + | Home Phone | | + + + | Preferred Language | Unknown | + + + | Marital Status | | + + + | Baptist Affiliation | Unknown | + + + | Race | Unknown | + + + | Ethnic Group | Unknown | + + + Author + + + | Author | [facility] | | | and Bentleyana | + + + | Organization | [facility] | | | and [...] Team Providers + +------+ + | Care Park Police Name | Role | Phone | + [...] | 10/31/ | Home Care | [facility] [place] | Eugenio Romeo | OT SECONDARY EVAL | | 2020 | Visit | [place] [address] | M, [place] | | | | | [place], [place] | | | | | | [address] | | | | | | [phone] | | | +--------+ + + + [...] + + + | Blood Pressure | 110/80 | 11/01/2019 2:50 PM | | | | | PDT | | + + + + + | Pulse | 72 | 11/01/2019 2:50 PM | | | | | PDT | | + + + + + | Temperature | 36.3 C (97.3 F) | 11/01/2019 2:50 PM | | | | | PDT | | + + + + + | Respiratory Rate | - | - | | + + + + + | Oxygen Saturation | 95% | 11/01/2019 2:50 PM | | | | | PDT [...] this encounter Miscellaneous Notes Home Health - Eugenio Romeo OT - 11/01/2019 2:35 PM PDT1) Are you or anyone you [...] Level 3 Travel Health Notice: [place]: [place], [place], [place] ([facility]): [place], [place], [place], [place], [place], [place], Sivan , Robert, Greece, [place], [place], [place], [place], [place], [place], [place], [facility], [place], [place], [place], [place], Slov[place], [place], Isabel[place], [place], [place], [facility], [place], [facility] [place] and [place]: Jose, [place], [place], [place], [place] Indicate positive screen if: Answer to any question 1-5 is yes or answer to question 6 indicates travel to a Level 3 anam tination. Consult with call center manager prior to visit. Verified patient by name and date of . S- Patient referred to HH following hospitalization d/t e-coli sepsis B- Medical Hx includes Diabetes, depression and morbid obesity Living environment - Single story house Social support - lives with her who provides assistance with ADL/IADLs PLOF - independent with ADLS assistance with IADLs. Patient's began to assist more with ADL/IADLs within the past 6 months Current functional status - assistance with ADLs Fall history - high risk for falls and concerns with falls A- Patient presents this visit with decreased activity tolerance, decreased strength and en durance in BUE during ADLs, increased fear of falling, BLE edema Standardized Assessments See ADLs, ROM/Strength for standardized assessments results and interpretation Sensation - neuropathy in b/l feet Functional transfers - requires assistance for bed transfers, supervision for shower transf ers Gross Motor function - has a torn rotator cuff on her LUE without surgical repair; however, continues to use it with good strength Functional limitations found during assessment include - decreased activity tolerance, decr eased standing tolerance secondary to pain, decreased maneuverability in the home secondary to furniture Lymphedema Management - slight edema noted in b/l LE. Patient reports this has been present for 20 years, and does not do anything to manage edema Bathing - OT discussed plan for bathing following HH discharge as follows supervision for savi guerrero R- OT collaborated with patient to establish care plan and discharge plan Patient/CG Goals - to return to doing the laundry, meals, housekeeping and dressing self sa richard and independently. return to prior level of function, manage the dogs throughout the da y Patient would benefit from skilled HHOT intervention for ADL performance, Energy conservati on, UE functioning, strengthening, ROM, Home exercise instruction, Home safety, edema manage ment, Patient and caregiver education and IADL training in order to maximize safety and inde pendence in the home OT plans to see patient a total of 4 visits with reassessment of skilled need as needed. Jose Daniel bergeron verbalized agreement. 8: 34 AM PDTdocumented in this encounter Plan of Treatment +--------+ + + + + | Date | Type | Specialty | Care Team | Description | +--------+ + + + + | 12/02/ | Home Care | Home Health Services | [facility], | | | 2019 | Visit | | CLOTH PRINTING BACK TENDER [address] | | | | | | [place] | | | | | | [address] | | +--------+ + + + + | 12/04/ | Home Care | Home Health Services | [facility], | | | 2019 | Visit | | CLOTH PRINTING BACK TENDER [address] | | | | | | [place] | | | | | | [address] | | +--------+ + + + + | 12/04/ | Office | Sleep Medicine | [facility] | | | 2019 | Visit | | XAVI Saldana [address] | | | | | [address] | | | | | | [place] [address] | | | | | | [phone] | | | | | | | [...] | | 2019 | Visit | | CLOTH PRINTING BACK TENDER [address] | | | | | | [place] | | | | | | [address] | | +--------+ + + + + | 12/11/ | Home Care | Home Health Services | Shoshana Caldwell, | | | 2019 | Visit | | RN | | +--------+ + + + + | 12/12/ | Home Care | Home Health Services | Eugenio Romeo | | 2019 | Visit | | Jermaine, OT | | +--------+ + + + + | 12/16/ | Appointment | Home Health Services | Hemal Sequeira, PT | | | 2019 | | | [address] [place] [address] | | | | | | [place] [address] | | | | | | [phone] | | | | | | | [...] | | | | | [place] [address] | | | | | | [phone] | | | | | | | | +--------+ + + + + documented as of this encounter Visit Diagnoses Not on filedocumented in this encounter"
--- OUTSIDE RECORDS SUMMARY | ~2019-11-29 | XMS | Encounter Summary ---
Demographics + + + | Address | [address] | | | [place] [address] | + + + | Home Phone | | + + + | Preferred Language | Unknown | + + + | Marital Status | | + + + | Christianity Affiliation | Unknown | + + + | Race | Unknown | + + + | Ethnic Group | Unknown | + + + Author + + + | Author | [facility] | | | and Bentleyana | + + + | Organization | [facility] | | | and [...] Team Providers + +------+ + | Care Infant Room Teacher Name | Role | Phone | + [...] RN | | | | | [place] | | | | | | [address] | | | | | | [phone] | | | +--------+ + + + [...] Are you or anyone you live w [facility] experiencing any of the following symptoms? [...] any question 1-6 is yes. Consult with kennel manager prior to visit. S- penitentiary visit to assess medications, blood sugars, wound [...] some new medications and increased thyroid and kayele us sulfate medication. Patient verbalizes good understanding. [...] | | 2019 | Visit | | ELEMENTARY EDUCATOR [address] | | | | | | [place] | | | | | | [address] | | +--------+ + + + + | 12/04/ | Home Care | Home Health Services | [facility], | | | 2019 | Visit | | ELEMENTARY EDUCATOR [address] | | | | | | [place] | | | | | | [address] | | +--------+ + + + + | 12/04/ | Office | Sleep Medicine | [facility] | | | 2019 | Visit | | XAVI Saldana [address] | | | | | | [address] [place] | | | | | | [place] [address] | | | | | | [phone] | | | | | | | [...] | | 2019 | Visit | | ELEMENTARY EDUCATOR [address] | | | | | | [address] [place] | | | | | | [address] | | +--------+ + + + + [...] | | | | | [place] [address] | | | | | | [phone] | | | | | | | [...] | | | | | [place] [address] | | | | | | [phone] | | | | | | | | +--------+ + + + + documented as of this encounter Visit Diagnoses Not on filedocumented in this encounter Home Health Visit - Care Plan + + | Visit Type - SN - REPEAT VISIT | | Discipline - Mcc | + + + + +--------+--------+ + + | Problem | Description | Start | Status | Goals | Interventio | | | | Date | | | ns | + + +--------+--------+ + + | Diabetes | Diabetes | | | 1 goal | 1 goal | | Disciplines: | | 10/24/19 | Active | linked to | interventio | | Mcc | | 20 | | scheduled/d | [...] 20 | | scheduled/d | | | Mcc | | | | ocumented | | [...] ed on | scheduled/d | | | Mcc | | | | ocumented | | | | | | 020 | interventio | | | | | | | n | | + + +--------+--------+ + + | HH SHARED FALLS | Falls | | | 1 goal | | | Disciplines: | | 10/24/19 | Resolv | linked to | | | Mcc, | | 20 | ed on | [...] Active | linked to | | | Mcc | | 20 | | scheduled/d | [...] | | scheduled/d | n | | Mcc | | | | ocumented | scheduled/d [...] 20 | | scheduled/d | | | Mcc | | | | ocumented | | | | | | | interventio | | | | | | | n | | + + +--------+--------+ + + | Wound Management | Wound Management | | | 1 goal | | | Disciplines: | | 10/24/19 | Active | linked to | | | Mcc | | 20 | | scheduled/d | [...] as performed by | | | | [facility] and | | patient/caregiver. | | | [...]
--- OUTSIDE RECORDS SUMMARY | ~2019-11-29 | XMS | Encounter Summary ---
Demographics + + + | Address | [address] | | | [place] [address] | + + + | Home Phone | | + + + | Preferred Language | Unknown | + + + | Marital Status | | + + + | Anglican Affiliation | Unknown | + + + | Race | Unknown | + + + | Ethnic Group | Unknown | + + + Author + + + | Author | [facility] | | | and Bentleyana | + + + | Organization | [facility] | | | and [...] Team Providers + +------+ + | Care Production Clerks Supervisor Name | Role | Phone | + [...] 11/14/ | Home Care | [facility] [place] | Eugenio Romeo | OT REPEAT VISIT | | 2019 | Visit | [place] [address] | M, [place] | | | | | [place] | | | | | | [address] | | | | | | [phone] | | | +--------+ + + + [...] this encounter Miscellaneous Notes Home Health - Agueda Slimwilber Dean OT - 11/15/2019 1:53 PM PDT1) Are you or anyone you [...] Level 3 Travel Health Notice: [place]: [place], [place], [place] ([facility]): [place], [place], [place], Le[place], [place], [place], Sivan , Robert, Greece, [place], [place], [place], [place], [place], [place], [place], [facility], [place], [place], [place], [place], [place], [place], Isabel[place], [place], [place], [facility], [place], [facility] [place] and [place]: [place], [place], [place], [place], [place] Indicate positive screen if: Answer to any question 1-5 is yes or answer to question 6 indicates travel to a Level 3 anam tination. Consult with clinical statistics manager prior to visit. S - 59 y.o. Female with sepsis being seen by OT for Energy conservation. B - FLAG SIGNALER was present during today's visit. Patient reports she continues to desaturate with activity to high 70s. RT was with patient prior to this OT visit. A - OT provided energy conservation education including the following topics: pacing, organ izing, setting up realistic goals, avoiding fatigue, good posture, and good body mechanics. OT provided education on 4-7-8 breathing technique, which patient reports increased her anxi ety as she felt she was "doing the exercise wrong." OT encouraged patient to focus on slow b reaths, with deep breath in through the nose, pause, and slow breath out through the mouth. Patient verbalized understanding of same. Patient reported she was concerned with trying to hold for 7 seconds. OT attempted to calm patient and help patient to focus on slowing down h er breathing. At the end of the session patient reports that she is so anxious and concerned with learning everything from all of the HH visits and incorporate it all daily that she is becoming overwhelmed. OT refocused patient on OT's education pieces today, which patient ve rbalized was to slow down, take her time with any activity, plan ahead, and breathe. OT ellen mmended patient and try to schedule home health visit throughout the week so that blossom bergeron does not become overwhelmed with multiple visits in a day and provide patient with socorro es to rest and focus on each piece. Patient and verbalized understanding of same. Blossom bergeron reports she is doing better getting in bed; however, continues to require assistance w ith lifting her LE. R - Continue original POC - trial leg hand tapper for bed transfers. documented in this encounter Plan of Treatment +--------+ + + + + | Date | Type | Specialty | Care Team | Description | +--------+ + + + + | 12/02/ | Home Care | Home Health Services | [facility], | | | 2019 | Visit | | HAT BAND ATTACHER [address] | | | | | | [place] | | | | | | [address] | | +--------+ + + + + | 12/04/ | Home Care | Home Health Services | [facility], | | | 2019 | Visit | | HAT BAND ATTACHER [address] | | | | | | [place] | | | | | | [address] | | +--------+ + + + + | 12/04/ | Office | Sleep Medicine | [facility] | | | 2019 | Visit | | XAVI Saldana [address] | | | | | | [address] | | | | | | [place] [address] | | | | | | [phone] | | | | | | | [...] | | 2019 | Visit | | HAT BAND ATTACHER [address] | | | | | | [place] | | | | | | [address] | | +--------+ + + + + | 12/11/ | Home Care | Home Health Services | Shoshana Caldwell, | | | 2019 | Visit | | RN | | +--------+ + + + + | 12/12/ | Home Care | Home Health Services | Eugenio Romeo | | | 2019 | Visit | | M OT | | +--------+ + + + + | 12/16/ | Appointment | Home Health Services | Hemal Sequeira, PT | | 2019 | | | [address] [facility] | | | | | | [place] [address] | | | | | | [phone] | | | | | | | [...] [address] | | | | | | [place] [address] | | | | | | [phone] | | | | | | | | +--------+ + + + + documented as of this encounter Visit Diagnoses Not on filedocumented in this encounter Home Health Visit - Care Plan + + | Visit Type - OT - REPEAT VISIT | | Discipline - Occupational Therapy | + + + + +--------+--------+ + + | Problem | Description | Start | Status | Goals | Interventio | | | | Date | | | ns | + + +--------+--------+ + + | HH OT DYSPNEA | Dyspnea | | | 1 goal | 1 [...] | | 11/22/19, the patient | | | | | | will verbalize | | | | | | understanding of | | | | | | energy | | [...] | | + + +--------+--------+ + | Cardiopulmonary | Problem: HH OT | | | | | Training | DYSPNEAGoal: OT | Comple | | | | Description: | DYSPNEA | nellie | | | | Instruct in breath | | | | | | control during | | | | | | functional mobility, | | | | | | ADLs, and at rest | | | | | | if needed. Instruct | | | | | | in strategies to | | | | | | decrease dyspnea, | | | | | | conserve energy, and | | | | | | a home exercise | | | | | | program for | | | | | | breathing exercises. | | | | | + + +--------+--------+ + documented in this encounter
--- OUTSIDE RECORDS SUMMARY | ~2019-11-29 | XMS | Encounter Summary ---
Demographics + + + | Address | [address] | | | [place] [address] | + + + | Home Phone | | + + + | Preferred Language | Unknown | + + + | Marital Status | | + + + | Confucianism Affiliation | Unknown | + + + | Race | Unknown | + + + | Ethnic Group | Unknown | + + + Author + + + | Author | [facility] | | | and Bentleyana | + + + | Organization | [facility] | | | and [...] Team Providers + +------+ + | Care Local Bulk Driver Name | Role | Phone | + [...] | Specialty | Physical | Diagnoses | Jalen, | OP ST | | | Services | Therapy | | Kei Reyes, | DORINA | | | Required | | Spondylolist | [address] | HOSPITAL | | | | | damon at | [address] | [address] | | | | | L5-S1 level | [place], | AVE | | | | | Lumbar | [place] [address] | [place], [place] | | | | | stenosis | Phone: | [phone] | | | | | with | [phone] | Phone: | | | | | neurogenic | Fax: | [phone] | | | | | claudication | [phone] | Fax: | | | | | Morbid | | [phone] | | | | | obesity with [...] | Neurosurgery | Diagnoses | Quaempts, | Jalen, | | | | | Low back | Denis Dean DO | Kei Reyes MD | | | | | pain | [address] | [address] | | | | | Procedures | [address] | [address] | | | | | [place] OFFICE | [place], | [place], | | | | | CONSULTATION | [place] [address] | [place] [address] | | | | | NEW/ESTAB | Phone: | Phone: | | | | | PATIENT 60 | [phone] | [phone] | | | | | MIN | Fax: | Fax: | | | | | | [phone] | [phone] | +--------+--------+ + + + + Encounter Details +--------+---------+ + + + | Date | Type | Department | Care Team | Description | +--------+---------+ + + + | 08/04/ | Office | [facility] | Kei Rao | Spondylolisthesis at | | 2016 | Visit | NEUROSURGERY [address] | MD Amy [address] | L5-S1 level | | | | [address] | [address] [place] | (Primary Dx); Lumbar | | | | [place], [place] | [place] [address] | stenosis with | | | | [address] | [phone] | neurogenic | | | | [phone] | | claudication; Morbid | | | | | | obesity with BMI of | | | | | | 50.0-59.9, adult | | | | | | ([facility]) | +--------+---------+ + + + [...] from the original. Kei Rao MD [address] [facility] [address] [place], [place] [address] FAX: NEUROSURGERY HISTORY AND PHYSICAL EXAMINATION CHIEF [...] FIND Twice daily as needed. Med Name: Elijah freeze No current facility-administered medications for this [...] acute distress with unlabored respirations. The patien t does not appear uncomfortable throughout the exam [...] has no apparent deficits with short or terminal carman memory. CRANIAL NERVES: Fundoscopic Exam: The optic [...] Intrinsics 5 5 Ulnar Intrinsics 5 5 Paralegal Internship Strength 5 5 Hip Flexion 5 5 [...] Morbid obesity with BMI of 50.0-59.9, adult ([facility]) GENERAL DIAGNOSES: Past Medical History Diagnosis Date Hypertensive disorder Morbid obesity ([facility]) Iron deficiency anemia Vitamin D deficiency Diabetic peripheral neuropathy ([facility]) Acquired hypothyroidism Mixed hyperlipidemia Chronic pain syndrome Pure hyperglyceridemia Bilateral knee pain Type 2 diabetes, uncontrolled, with neuropathy ([facility]) Closed displaced fracture of distal phalanx of great toe, unspecified laterality, seque la PLAN: Norbert Mckay presented today, and I greatly appreciate [...] | | 2019 | Visit | | CERAMIC ENGINEER [address] | | | | | | [place] | | | | | | [address] | | +--------+ + + + + | 12/04/ | Home Care | Home Health Services | [facility], | | | 2019 | Visit | | CERAMIC ENGINEER [address] | | | | | | [place] | | | | | | [address] | | +--------+ + + + + | 12/04/ | Office | Sleep Medicine | Bre [facility] | | | 2019 | Visit | | XAVI Saldana [address] | | | | | | [address] | | | | | | [place] [address] | | | | | | [phone] | | | | | | | [...] | | 2019 | Visit | | CERAMIC ENGINEER [address] | | | | | | ST [place] [facility] [place] | | | | | | [address] | | +--------+ + + + + [...] | 2019 | | | [address] [place] | | | | | | [place] [address] | | | | | | [phone] | | | | | | | [...] W | | | | | | [address] [place] | | | | | | [place] [address] | | | | | | [phone] | | | | | | | [...] adult | | | | | | ([facility]) | | + + +--------+ + + documented as of this encounter Visit Diagnoses + + | Diagnosis | + + | Spondylolisthesis at L5-S1 level - Primary | + + | Lumbar stenosis with neurogenic claudication Spinal stenosis, lumbar region, with | | neurogenic claudication | + + | Morbid obesity with BMI of 50.0-59.9, adult ([facility]) | + + documented in this encounter
--- OUTSIDE RECORDS SUMMARY | ~2019-11-29 | XMS | Encounter Summary ---
Demographics + + + | Address | [address] | | | [place] [address] | + + + | Home Phone | | + + + | Preferred Language | Unknown | + + + | Marital Status | | + + + | Moravian Affiliation | Unknown | + + + | Race | Unknown | + + + | Ethnic Group | Unknown | + + + Author + + + | Author | [facility] | | | and Bentleyana | + + + | Organization | [facility] | | | [...] Providers + +------+ + | Care Road Oiling Truck Driver Name | Role | Phone | [...] | 10/27/ | Home Care | PROV [facility] MACE | Eugenio Romeo | CASE COMMUNICATION | | 2020 | Visit | [place] [address] | [place] | | | | | [place], [place] | | | | | | [address] | | | | | | [phone] | | | +--------+ + + + [...] | | 2019 | Visit | | WOOD HANDLER [address] | | | | | | [place] | | | | | | [address] | | +--------+ + + + + | 12/04/ | Home Care | Home Health Services | [facility], | | | 2019 | Visit | | WOOD HANDLER [address] | | | | | | [place] | | | | | | [address] | | +--------+ + + + + | 12/04/ | Office | Sleep Medicine | [facility] | | | 2019 | Visit | | XAVI Saldana [address] | | | | | | [address] | | | | | | [place] [address] | | | | | | [phone] | | | | | | | [...] | | 2019 | Visit | | WOOD HANDLER [address] | | | | | | [place], [place] | | | | | | [address] | | +--------+ + + + + [...] | | | | | [place] [address] | | | | | | [phone] | | | | | | | [...] [address] | | | | | | [phone] | | | | | | | | +--------+ + + + + documented as of this encounter Visit Diagnoses Not on filedocumented in this encounter"
--- OUTSIDE RECORDS SUMMARY | ~2019-11-29 | XMS | Encounter Summary ---
Demographics + + + | Address | [address] | | | [place] [address] | + + + | Home Phone | | + + + | Preferred Language | Unknown | + + + | Marital Status | | + + + | Temple Affiliation | Unknown | + + + | Race | Unknown | + + + | Ethnic Group | Unknown | + + + Author + + + | Author | [facility] | | | and Bentleyana | + + + | Organization | [facility] | | | and [...] Team Providers + +------+ + | Care Property Field Adjuster Name | Role | Phone | + [...] Home Care | [facility] [place] | Rayna, | RT REPEAT VISIT | | 2019 | Visit | [place] [address] | Serena Rubio R[address] | | | | | [place], [place] | | | | | | [address] | | | | | | [phone] | | | +--------+ + + + [...] | | 2019 | Visit | | POLISHER AND BUFFER [address] | | | | | | [place] | | | | | | [address] | | +--------+ + + + + | 12/04/ | Home Care | Home Health Services | [facility], | | | 2019 | Visit | | POLISHER AND BUFFER [address] | | | | | | [place] | | | | | | [address] | | +--------+ + + + + | 12/04/ | Office | Sleep Medicine | [facility] | | | 2019 | Visit | | XAVI Saldana [address] | | | | | | [address] | | | | | | [place] [address] | | | | | | [phone] | | | | | | | [...] | | 2019 | Visit | | POLISHER AND BUFFER [address] | | | | | | [place] | | | | | | [address] | | +--------+ + + + + [...] | | 2019 | | | [address] [facility] | | | | | | [place] [address] | | | | | | [phone] | | | | | | | [...] | | | | | [place] [address] | | | | | | [phone] | | | | | | | | +--------+ + + + + documented as of this encounter Visit Diagnoses Not on filedocumented in this encounter"
--- OUTSIDE RECORDS SUMMARY | ~2019-11-29 | XMS | Encounter Summary ---
Demographics + + + | Address | [address] | | | [place] [address] | + + + | Home Phone | | + + + | Preferred Language | Unknown | + + + | Marital Status | | + + + | Uatsdin Affiliation | Unknown | + + + | Race | Unknown | + + + | Ethnic Group | Unknown | + + + Author + + + | Author | [facility] | | | and Bentley[place] | + + + | Organization | [facility] | | | and [...] Team Providers + +------+ + | Care Dairy Clerk Name | Role | Phone | + [...] | +--------+ + + + + | 10/30/ | Home Care | [facility] [place] | Pablo Nielsen, | PT SECONDARY EVAL | | 2020 | Visit | [place] [address] | PT [address] | | | | | [place] | [place] | | | | | [address] | [address] | | | | | [phone] | | | +--------+ + + + [...] + + + | Blood Pressure | 132/68 | 10/31/2019 9:30 AM | | | | | PDT | | + + + + + | Pulse | 88 | 10/31/2019 9:30 AM | | | | | PDT | | + + + + + | Temperature | 36 C (96.8 F) | 10/31/2019 9:30 AM | | | | | PDT | | + + + + + | Respiratory Rate | - | - | | + + + + + | Oxygen Saturation | 93% | 10/31/2019 9:30 AM | | | | | [...] this encounter Miscellaneous Notes Home Health - Pablo Nielsen, PT - 10/31/2019 9:00 AM PDTS: Patient has returned home f rom an acute hospital stay form e-coli sepsis. B: Patient states she slowly became weaker and more lethargic weeks prior to admission. Kelly or to admission she was ambulating w/o device and was able to transfer in/out of their picku p independently. She has had increased L knee pain associated with OA. A: Patient now find transfers in/out of bed are challenging, requiring her husbands assist and she is not able to get in/out of pickup without significant assistance. They agree to lo wering the bed and purchase a bedside assist rail. She is awaiting delivery of a FWW. Anastasia t can sit <> stand safely from higher furniture. R: PT to emphasize LE strength and mobility training. 1) Are you or anyone you live [...] Level 3 Travel Health Notice: [place]: [place], [place], [facility] Europe ([facility]): [place], [place], [place], [place], [place], [place], Sivan , Robert, Greece, [place], [place], [place], [place], [place], [place], [place], [place], [place], [place], [place], [place], [place], [place], Isabelle, [place], [place], [facility], [place], [facility] [place] and [place]: [place], [place], [place], [place], [place] Indicate positive screen if: Answer to any question 1-5 is yes or answer to question 6 indicates travel to a Level 3 anam tination. Consult with resident manager prior to visit. documented in this encounter Plan of Treatment +--------+ + + + + | Date | Type | Specialty | Care Team | Description | +--------+ + + + + | 12/02/ | Home Care | Home Health Services | [facility], | | 2019 | Visit | | BUSH AND VINE FARMER FRUIT CROPS [address] | | | | | | ST [place], [place] | | | | | | [address] | | +--------+ + + + + | 12/04/ | Home Care | Home Health Services | [facility], | | | 2019 | Visit | | BUSH [employer]INE [employer]UIT CROPS [address] | | | | | | [place] | | | | | | [address] | | +--------+ + + + + | 12/04/ | Office | Sleep Medicine | [facility] | | | 2019 | Visit | | XAVI Saldana [address] | | | | | | [address] [place] | | | | | | [place] [address] | | | | | | [phone] | | | | | | | [...] | | 2019 | Visit | | BUSH AND VINE FARMER FRUIT CROPS [address] | | | | | | ST [place] | | | | | | [address] | | +--------+ + + + + [...] | | | | | [place] [address] | | | | | | [phone] | | | | | | | [...] | | | | | [place] [address] | | | | | | [phone] | | | | | | | | +--------+ + + + + documented as of this encounter Visit Diagnoses Not on filedocumented in this encounter Home Health Visit - Care Plan + + | Visit Type - PT - SECONDARY EVAL | | Discipline - Physical Therapy | [...] | Problem: HH PT | | | Patient ambulated 10 | | Description: | IMPAIRED GAITGoal: | | | feet x 3 reps using quad | | Evaluate and | HH PT GAIT/STAIRS | | | cane and opposite hand | | instruct patient | | | | to steady on rankin and | | and/or caregiver in | | | | furniture. Gait with CGA | | gait training using | | | | for safety secondary | | front-wheeled walker | | | | c/o;s of right knee pain | | no weight bearing | | | | and patient's general | | restrictions | | | | state of fatigue. | + + +--------+--------+ + | PT transfer | Problem: HH PT | | | Transfer training sit | | training | IMPAIRED | | | <> stand from rolling | | Description: | TRANSFERSGoal: PT | | | stool, couch and EOB | | Evaluate and | TRANSFERS | | | with use of hands to | | instruct patient | | | | push from furniture and | | and/or caregiver in | | | | to slow descent when | | safe transfers using | | | | sitting. | | appropriate body | | | | | | mechanics and | | | | | | necessary equipment. | | | | | + + +--------+--------+ + documented in this encounter"
--- OUTSIDE RECORDS SUMMARY | ~2019-11-29 | XMS | Encounter Summary ---
Demographics + + + | Address | [address] | | | [place] [address] | + + + | Home Phone | | + + + | Preferred Language | Unknown | + + + | Marital Status | | + + + | Alevism Affiliation | Unknown | + + + | Race | Unknown | + + + | Ethnic Group | Unknown | + + + Author + + + | Author | [facility] | | | and Bentley[place] | + + + | Organization | [facility] | | | and Bentleyana [...] Team Providers + +------+ + | Care Pulp Roller Name | Role | Phone | + [...] | MED CTR EXTERNAL | MD [address] | | | | | IMAGING [address] | Kristen ZHENG | | | | | [place] | [place] [address] | | | | | [place] [address] | | | | | | [phone] | | | +--------+ + + + [...] | | 2019 | Visit | | ADVENTURE THERAPIST [address] | | | | | | ST [place] | | | | | | [address] | | +--------+ + + + + | 12/04/ | Home Care | Home Health Services | [facility], | | | 2019 | Visit | | ADVENTURE THERAPIST [address] | | | | | | ST [place] | | | | | | [address] | | +--------+ + + + + | 12/04/ | Office | Sleep Medicine | [facility] | | | 2019 | Visit | | XAVI Saldana [address] | | | | | | [address] | | | | | | [place] [address] | | | | | | [phone] | | | | | | | [...] | | 2019 | Visit | | ADVENTURE THERAPIST [address] | | | | | | [address] [place] | | | | | | [address] | | +--------+ + + + + [...] | 2019 | | | [address] [facility] | | | | | | [place] [address] | | | | | | [phone] | | | | | | | [...] | | | | | | [facility] | | | | | | [place] [address] | | | | | | [phone] | | | | | | | [...]
--- OUTSIDE RECORDS SUMMARY | ~2019-11-29 | XMS | Encounter Summary ---
Demographics + + + | Address | [address] | | | [place] [address] | + + + | Home Phone [...] [facility] | | | and Bentleyana | + + + | Organization | [facility] | | | and [...] Team Providers + +------+ + | Care Human Resources Office Assistant Name | Role | Phone | + +------+ + | Mell Bautista | PCP | | + +------+ + Encounter Details +--------+ + + + + | Date | Type | Department | Care Team | Description | +--------+ + + + + | 11/14/ | Abstract | [facility] [place] | Zuhair Lee | | | 2019 | | CARDIOLOGY [address] | MD Walker [address] | | | | | [place], | [address] [place] | | | | | [place] [address] | [place] [address] | | | | | [phone] | [phone] | | | | | | | [...] | | 2019 | Visit | | HR LEADER [address] | | | | | | [place] | | | | | | [address] | | +--------+ + + + + | 12/04/ | Home Care | Home Health Services | [facility], | | | 2019 | Visit | | HR LEADER [address] | | | | | | [place] | | | | | | [address] | | +--------+ + + + + | 12/04/ | Office | Sleep Medicine | [facility] | | | 2019 | Visit | | XAVI Saldana [address] | | | | | | [address] | | | | | | [place] [address] | | | | | | [phone] | | | | | | | [...] | | 2019 | Visit | | HR LEADER [address] | | | | | | [address] [place] | | | | | | [address] | | +--------+ + + + + | 12/11/ | Home Care | Home Health Services | Shoshana Caldwell, | | | 2019 | Visit | | RN | | +--------+ + + + + | 12/12/ | Home Care | Home Health Services | Eugenio Romeo | | | 2019 | Visit | | Jermaine OT | | +--------+ + + + + | 12/16/ | Appointment | Home Health Services | Hemal Sequeira PT | | 2019 | | | [address] [place] | | | | | | [place] [address] | | | | | | [phone] | | | | | | | [...] Olivarez | | | | | | [place] [address] | | | | | | [phone] | | | | | | | [...] +--------+ + + + | EXTERNAL LAB: CBC | Routin | 10/23/2019 | | Results for this | | | e | | | procedure are in the | | | | | | results section. | + +--------+ + + + | EXTERNAL LAB: CBC | Routin | 10/23/2019 | | Results [...]
--- OUTSIDE RECORDS SUMMARY | ~2019-11-29 | XMS | Encounter Summary ---
Demographics + + + | Address | [address] | | | [place] [address] | + + + | Home Phone | | + + + | Preferred Language | Unknown | + + + | Marital Status | | + + + | Jainism Affiliation | Unknown | + + + | Race | Unknown | + + + | Ethnic Group | Unknown | + + + Author + + + | Author | [facility] | | | and [place] | + + + | Organization | [facility] | | | and [...] Team Providers + +------+ + | Care Bundle Cutter Name | Role | Phone | + [...] 10/31/ | Home Care | [facility] [place] | Yulissa Gann, | TELEPHONE ENCOUNTER | | 2019 | Visit | [place] [address] | [address] | | | | | ST [place], [place] | | | | | | [address] | | | | | | [phone] | | | +--------+ + + + [...] | | 2019 | Visit | | LEAD DATA ARCHITECT [address] | | | | | | [place] | | | | | | [address] | | +--------+ + + + + | 12/04/ | Home Care | Home Health Services | [facility], | | | 2019 | Visit | | LEAD DATA ARCHITECT [address] | | | | | | [place] | | | | | | [address] | | +--------+ + + + + | 12/04/ | Office | Sleep Medicine | [facility] | | | 2019 | Visit | | XAVI Saldana [address] | | | | | | [address] | | | | | | [place] [address] | | | | | | [phone] | | | | | | | [...] | | 2019 | Visit | | LEAD DATA ARCHITECT [address] | | | | | | [address] [place] | | | | | | [address] | | +--------+ + + + + [...] | | | | | [place] [address] | | | | | | [phone] | | | | | | | [...] | | | | | [place] [address] | | | | | | [phone] | | | | | | | | +--------+ + + + + documented as of this encounter Visit Diagnoses Not on filedocumented in this encounter"
--- OUTSIDE RECORDS SUMMARY | ~2019-11-29 | XMS | Encounter Summary ---
Demographics + + + | Address | [address] | | | [place] [address] | + + + | Home Phone | | + + + | Preferred Language | Unknown | + + + | Marital Status | | + + + | Samaritan Affiliation | Unknown | + + + | Race | Unknown | + + + | Ethnic Group | Unknown | + + + Author + + + | Author | [facility] | | | and Bentleyana | + + + | Organization | [facility] | | | and Bentleyana [...] Team Providers + +------+ + | Care Billiard Parlor Manager Name | Role | Phone | [...] | [place] [address] | Ami, [facility] | | | | | ST [place], [place] | [phone] | | | | | [address] | | | | | | [phone] | | | +--------+ + + + [...] | | 2019 | Visit | | NURSE FIRST ASSIST [address] | | | | | | [place] | | | | | | [address] | | +--------+ + + + + | 12/04/ | Home Care | Home Health Services | [facility], | | | 2019 | Visit | | NURSE FIRST ASSIST [address] | | | | | | [place] | | | | | | [address] | | +--------+ + + + + | 12/04/ | Office | Sleep Medicine | [facility] | | | 2019 | Visit | | XAVI Saldana [address] | | | | | | [address] [place] | | | | | | [place] [address] | | | | | | [phone] | | | | | | | [...] [place] | | | | | | [address] | | +--------+ + + + + [...] | | | | | | [place] [address] | | | | | | [phone] | | | | | | | [...] | | | | | [place] [address] | | | | | | [phone] | | | | | | | | +--------+ + + + + documented as of this encounter Visit Diagnoses Not on filedocumented in this encounter"
--- OUTSIDE RECORDS SUMMARY | ~2019-11-29 | XMS | Encounter Summary ---
Demographics + + + | Address | [address] | | | [place] [address] | + + + | Home Phone [...] | [facility] | | | and Bentleyana | + + + | Organization | [facility] | [...] Team Providers + +------+ + | Care Business Mgr Name | Role | Phone | + [...] Home Care | [facility] [place] | Triston Holley | MULTI SHARE PROGRAM COORDINATOR SECONDARY EVAL | | 2019 | Visit | [place] [address] | S, LEDGER CLERK | | | | | ST [place], [place] | [phone] | | | | | [address] | | | | | | [phone] | | | +--------+ + + + [...] Miscellaneous Notes Home Health - Triston Holley, [facility] - 11/15/2019 2:00 PM PDTAgatha is a 59 year old Na tive [place] lady who is living at home with her . Her works full t [employer] for the [employer] the [place]. He has been working from home since [...] she is afraid of being alone. T his social owlesley talked with her about securing an emergency call button. This social work er will, also, check with the [facility] to find out what kind of support and counell ing is available for [facility] members. This director social welfare will try to make at least [facility] to provide information and [...] any question 1-6 is yes. Consult with prep manager prior to visit.Electronically s igned by DA Ahuja at 11/20/2019 3:37 PM PDTdocumented in this encounter Plan of Treatment +--------+ + + + + | Date | Type | Specialty | Care Team | Description | +--------+ + + + + | 12/02/ | Home Care | Home Health Services | [facility], | | 2019 | Visit | | BUILDING ILLUMINATING ENGINEER [address] | | | | | | ST [place], [place] | | | | | | [address] | | +--------+ + + + + | 12/04/ | Home Care | Home Health Services | [facility], | | | 2019 | Visit | | BUILDING ILLUMINATING ENGINEER [address] | | | | | | [place] | | | | | | [address] | | +--------+ + + + + | 12/04/ | Office | Sleep Medicine | [facility] | | | 2019 | Visit | | XAVI Saldana [address] | | | | | | [address] [place] | | | | | | [place] [address] | | | | | | [phone] | | | | | | | [...] | | 2019 | Visit | | BUILDING ILLUMINATING ENGINEER [address] | | | | | | [place] | | | | | | [address] | | +--------+ + + + + [...] | | | | | | [place] [address] | | | | | | [phone] | | | | | | | [...] | | | | | [place] [address] | | | | | | [phone] | | | | | | | | +--------+ + + + + documented as of this encounter Visit Diagnoses Not on filedocumented in this encounter"
--- OUTSIDE RECORDS SUMMARY | ~2019-11-29 | XMS | Encounter Summary ---
Demographics + + + | Address | [address] | | | [place] [address] | + + + | Home Phone | | + + + | Preferred Language | Unknown | + + + | Marital Status | | + + + | Voodoo Affiliation | Unknown | + + + | Race | Unknown | + + + | Ethnic Group | Unknown | + + + Author + + + | Author | [facility] | | | and Bentley[place] | + + + | Organization | [facility] | | | and Bentleyana [...] Team Providers + +------+ + | Care Clothespin Machine Operator Name | Role | Phone [...] | | | | [place] | | | | | | [address] | | | | | | [phone] | | | +--------+ + + + [...] ate of . S- Patient admitted to [facility] following a hospitalization. Patient diagnosed with [...] year ago. RN to request order for FREIGHT CAR LOADER for counseling, and community resourse, RT for Resp assessment and needs, and Concrete Pile Driver Operator for nutrition instruction. Pt has walker, but [...] education on prevention of [place] VID-19 spread [facility] protocols for prevention. Provided education on COVID-19 symptoms(Cou gh, fever, sore throat, SOB)and risk factors (underlying disease, recent travel, pt. conta ct with +COVID-19 person). Provided education on when to contact health patient care associate a nd when to seek medical care. Emergency Response Planning: In process with patient. Pt/DPOA has the admit packet whic h contains emergency response plan individualized for patient. Refer to [place] tool Patient/caregiver verbalized understanding. R- Patient would benefit from skilled HH intervention due to: wound care, risk for falls, r isk for skin breakdown and risk for rehospitalization. Patient will need PT to evaluate and develop individualized care plan, OT to evaluate and d evelop individualized care plan, FREIGHT CAR LOADER to evaluate and develop individualized care plan [...] Level 3 Travel Health Notice: [place]: [place], [place], [place] Europe ([facility]): [place], [place], [place], [place], [place], [place], Sivan , [place], Greece, [place], [place], [place], [place], [place], [place], [place], [place], [place], [place], [place], [place], [place], [place], [place]le, [place], [place], Jarek, [place], [facility] and [place]: [place], [place], [place], [place], [place] Indicate positive screen if: Answer to any question 1-5 is yes or answer to question 6 indicates travel to a Level 3 anam tination. Consult with manager integrity prior to visit. documented in this encounter Plan of Treatment +--------+ + + + + | Date | Type | Specialty | Care Team | Description | +--------+ + + + + | 12/02/ | Home Care | Home Health Services | [facility], | | 2019 | Visit | | FINISHED METAL REPAIRER [address] | | | | | | [place], [place] | | | | | | [address] | | +--------+ + + + + | 12/04/ | Home Care | Home Health Services | [facility], | | | 2019 | Visit | | FINISHED METAL REPAIRER [address] | | | | | | [place] | | | | | | [address] | | +--------+ + + + + | 12/04/ | Office | Sleep Medicine | [facility] | | | 2019 | Visit | | XAVI Saldana [address] | | | | | | [address] [place] | | | | | | [place] [address] | | | | | | [phone] | | | | | | | [...] | | 2019 | Visit | | FINISHED METAL REPAIRER [address] | | | | | | [place] | | | | | | [address] | | +--------+ + + + + [...] | | | | | | [place] [address] | | | | | | [phone] | | | | | | | [...] | | | | | | [place] [address] | | | | | | [phone] | | | | | | | [...] patient and | | Description: | Goal: [facility] | Comple | | caregiver [...]
--- OUTSIDE RECORDS SUMMARY | ~2019-11-29 | XMS | Encounter Summary ---
Demographics + + + | Address | [address] | | | [place] [address] | + + + | Home Phone | | + + + | Preferred Language | Unknown | + + + | Marital Status | | + + + | Jehovah'S Witness Affiliation | Unknown | + + + | Race | Unknown | + + + | Ethnic Group | Unknown | + + + Author + + + | Author | [facility] | | | and Bentleyana | + + + | Organization | [facility] | | | and Bentleyana [...] Team Providers + +------+ + | Care Wash Mill Operator Name | Role | Phone [...] [place], [place] | | | | | [address] | [address] | | | | | [phone] | | | +--------+ + + + [...] 3 Travel Health Notice: [place]: [place], [place], [facility] Europe ([place] Area): [place], [place], [place], [place], [place], [place], Sivan , Robert, Greece, [place], [place], [place], [place], [place], [place], [place], [place], [place], [place], [place], [place], [place], [place], Isabelle, [place], [place], [facility], [place], [facility] [place] and [place]: [place], [place], [place], [place], [place] Indicate positive screen if: Answer to any question 1-5 is yes or answer to question 6 indicates travel to a Level 3 anam tination. Consult with document control manager prior to visit. documented in this encounter Plan of Treatment +--------+ + + + + | Date | Type | Specialty | Care Team | Description | +--------+ + + + + | 12/02/ | Home Care | Home Health Services | [facility], | | 2019 | Visit | | CONSUMER INSIGHTS SPECIALIST [address] | | | | | | ST [place], [place] | | | | | | [address] | | +--------+ + + + + | 12/04/ | Home Care | Home Health Services | [facility], | | | 2019 | Visit | | CONSUMER INSIGHTS SPECIALIST [address] | | | | | | [place] | | | | | | [address] | | +--------+ + + + + | 12/04/ | Office | Sleep Medicine | [facility] | | | 2019 | Visit | | XAVI Saldana [address] | | | | | | [address] [place] | | | | | | [place] [address] | | | | | | [phone] | | | | | | | [...] | | 2019 | Visit | | CONSUMER INSIGHTS SPECIALIST [address] | | | | | | ST [place] | | | | | | [address] | | +--------+ + + + + [...] | | | | | [place] [address] | | | | | | [phone] | | | | | | | [...] | | | | | [place] [address] | | | | | | [phone] | | | | | | | [...]
--- OUTSIDE RECORDS SUMMARY | ~2019-11-29 | XMS | Encounter Summary ---
Demographics + + + | Address | [address] | | | [place] [address] | + + + | Home Phone [...] | [facility] | | | and Bentleyana | + + + | Organization | [facility] | | | and Bentleyana [...] Team Providers + +------+ + | Care Financial Systems Manager Name | Role | Phone | + +------+ + | Denis Galindo DO | PCP | | + +------+ + Encounter Details +--------+ + + + + | Date | Type | Department | Care Team | Description | +--------+ + + + + | 07/29/ | Abstract | [facility] [place] | Kei Rao | | | 2015 | | IRMA [address] | PMD Harvinder [address] | | | | | [address] | [address] [place] | | | | | [place], [place] | [place] [address] | | | | | [address] | [phone] | | | | | [phone] | | | +--------+ + + + [...] | | 2019 | Visit | | PROFESSOR OF LITERATURE [address] | | | | | | [place] | | | | | | [address] | | +--------+ + + + + | 12/04/ | Home Care | Home Health Services | [facility], | | | 2019 | Visit | | PROFESSOR OF LITERATURE [address] | | | | | | [place] | | | | | | [address] | | +--------+ + + + + | 12/04/ | Office | Sleep Medicine | Bre [facility] | | | 2019 | Visit | | XAVI Saldana [address] | | | | | | [address] | | | | | | [place] [address] | | | | | | [phone] | | | | | | | | +--------+ + + + + | 12/05/ | Home Care | Home Health Services | Shoshana Caldwell, | | | 2019 | Visit | | RN | | +--------+ + + + + | 12/05/ | Home Care | Home Health Services | Eugenio Romeo | | | 2020 | Visit | | M, OT | | +--------+ + + + + | 12/09/ | Home Care | Home Health Services | [facility], | | 2019 | Visit | | PROFESSOR OF LITERATURE [address] | | | | | | [address] [place] | | | | | | [address] | | +--------+ + + + + [...] 2019 | | | [address] [place] | | | | | | [place] [address] | | | | | | [phone] | | | | | | | [...] | | | | | [address] [place] | | | | | | [place] [address] | | | | | | [phone] | | | | | | | | +--------+ + + + + documented as of this encounter Visit Diagnoses Not on filedocumented in this encounter"
--- OUTSIDE RECORDS SUMMARY | ~2019-11-29 | XMS | Encounter Summary ---
Demographics + + + | Address | [address] | | | [place] [address] | + + + | Home Phone [...] + | Author | [facility] | | | and [place] | + + + | Organization | [facility] | | | and [place]ley[place] [...] Team Providers + +------+ + | Care Photographers' Model Name | Role | Phone | + [...] [place] | | | | | | [address] | | | | | | [phone] | | | +--------+ + + + [...] and depression. Still awaiting orde rs for EMERGENCY DEPARTMENT, RT, DT Clinician prompt: Per CDC Guidelines, positive screen for countries that have a Level 3 Travel Health Notice: [place]: [place], [place], [place] ([facility]): Con[place], [place], [place], Le[place], [place], [place], Sivan , Robert, Greece, Hungary, Iceland, [place], Lat[place], [place], [place], [place], [facility], [place], [place], [place], Aaron, Slov[place], [place], Isabelle, Sweden, [place], [facility], [place], [facility] [place] and [place]: [place], [place], [place], [place], [place] Indicate positive screen if: Answer to any question 1-5 is yes or answer to question 6 indicates travel to a Level 3 anam tination. Consult with travel agency manager prior to visit. documented in this encounter Plan of Treatment +--------+ + + + + | Date | Type | Specialty | Care Team | Description | +--------+ + + + + | 12/02/ | Home Care | Home Health Services | [facility], | | 2019 | Visit | | FEDERAL MEDIATION COMMISSIONER [address] | | | | | | ST [place], [place] | | | | | | [address] | | +--------+ + + + + | 12/04/ | Home Care | Home Health Services | [facility], | | | 2019 | Visit | | FEDERAL MEDIATION COMMISSIONER [address] | | | | | | [address] [place] | | | | | | [address] | | +--------+ + + + + | 12/04/ | Office | Sleep Medicine | Bre [facility] | | | 2019 | Visit | | XAVI Saldana [address] | | | | | [address] | | | | | | [place] [address] | | | | | | [phone] | | | | | | | [...] | | 2019 | Visit | | FEDERAL MEDIATION COMMISSIONER [address] | | | | | | [address] [place] | | | | | | [address] | | +--------+ + + + + [...] MACE | | | | | | [place] [address] | | | | | | [phone] | | | | | | | [...] [place] | | | | | | [place] [address] | | | | | | [phone] | | | | | | | [...]
--- OUTSIDE RECORDS SUMMARY | ~2019-11-29 | XMS | Encounter Summary ---
Demographics + + + | Address | [address] | | | [place] [address] | + + + | Home Phone [...] | Author | [facility] | | | and [place] | + + + | Organization | [facility] | | | and [place] | [...] Team Providers + +------+ + | Care Latex Foam Worker Name | Role | Phone | + [...] | +--------+ + + + + | 11/04/ | Home Care | [facility] [place] | Shoshana Caldwell, | CASE COMMUNICATION | | 2020 | Visit | [place] [address] | [address] | | | | | [place] | | | | | | [address] | | | | | | [phone] | | | +--------+ + + + [...] | | 2019 | Visit | | SNATH HANDLE ASSEMBLER [address] | | | | | | [place] | | | | | | [address] | | +--------+ + + + + | 12/04/ | Home Care | Home Health Services | [facility], | | | 2019 | Visit | | SNATH HANDLE ASSEMBLER [address] | | | | | | [place] | | | | | | [address] | | +--------+ + + + + | 12/04/ | Office | Sleep Medicine | Bre Vivas | | | 2019 | Visit | | XAVI Saldana [address] | | | | | [address] | | | | | | [place] [address] | | | | | | [phone] | | | | | | | [...] | | 2019 | Visit | | SNATH HANDLE ASSEMBLER [address] | | | | | | [place], [place] | | | | | | [address] | | +--------+ + + + + [...] | | | | | | [place] [address] | | | | | | [phone] | | | | | | | [...] | | | | | [place] [address] | | | | | | [phone] | | | | | | | | +--------+ + + + + documented as of this encounter Visit Diagnoses Not on filedocumented in this encounter"
--- OUTSIDE RECORDS SUMMARY | ~2019-11-29 | XMS | Encounter Summary ---
Demographics + + + | Address | [address] | | | [place] [address] | + + + | Home Phone | | + + + | Preferred Language | Unknown | + + + | Marital Status | | + + + | Baptism Affiliation | Unknown | + + + | Race | Unknown | + + + | Ethnic Group | Unknown | + + + Author + + + | Author | [facility] | | | and [place] | + + + | Organization | [facility] | | | and [...] Team Providers + +------+ + | Care Hoisting Machine Operator Name | Role | Phone [...] [address] | | | | [place], | [address] [place] | | | | | [place] [address] | [place] [address] | | | | | [phone] | [phone] | | | | | | | [...] | | 2019 | Visit | | INTEGRITY ENGINEER [address] | | | | | | [place] | | | | | | [address] | | +--------+ + + + + | 12/04/ | Home Care | Home Health Services | [facility], | | | 2019 | Visit | | INTEGRITY ENGINEER [address] | | | | | | [place] | | | | | | [address] | | +--------+ + + + + | 12/04/ | Office | Sleep Medicine | Bre Vivas | | | 2019 | Visit | | XAVI Saldana [address] | | | | | | [address] | | | | | | [place] [address] | | | | | | [phone] | | | | | | | [...] | | 2019 | Visit | | INTEGRITY ENGINEER [address] | | | | | | [address] [place] | | | | | | [address] | | +--------+ + + + + [...] | | | | | [place] [address] | | | | | | [phone] | | | | | | | [...] | | | | | | [place] [address] | | | | | | [phone] | | | | | | | [...]
--- OUTSIDE RECORDS SUMMARY | ~2019-11-29 | XMS | Encounter Summary ---
Demographics + + + | Address | [address] | | | [place] [address] | + + + | Home Phone | | + + + | Preferred Language | Unknown | + + + | Marital Status | | + + + | Roman Catholic Affiliation | Unknown | + + + | Race | Unknown | + + + | Ethnic Group | Unknown | + + + Author + + + | Author | [facility] | | | and [place] | + + + | Organization | [facility] | | | and [place] [...] Team Providers + +------+ + | Care Door Builder Name | Role | Phone | + [...] [facility] [place] | Eugenio Romeo | OT REASSESSMENT | | 2020 | Visit | [place] [address] | M, OT | (COUNT OR 30 DAY) | | | | ST [place], [place] | | | | | | [address] | | | | | | [phone] | | | +--------+ + + + [...] Home Health - Eugenio Romeo OT - 11/22/2019 1:52 PM PDT1) Are [...] any question 1-6 is yes. Consult with entertainment centre manager prior to visit. S - 59 y.o. Female with sepsis being seen by MARIUM for ADL performance. B - Patient reports she has been doing better today. Patient reports that she had an appt o n Monday at [facility] and was quite exhausted by the [...] OT demonstrated the use of a leg clinical immunologist for bed mobility, a grabber for dressing and ge neral uses around the house, and the use of a extra wide sock aid for donning socks. Patient was not up to trying the leg clinical immunologist or grabber for dressing today as she [...] in this en counter Plan of Treatment +--------+ + + + + | Date | Type | Specialty | Care Team | Description | +--------+ + + + + | 12/02/ | Home Care | Home Health Services | [facility], | | | 2019 | Visit | | CHIEF BANK EXAMINER [address] | | | | | | [place] | | | | | | [address] | | +--------+ + + + + | 12/04/ | Home Care | Home Health Services | [facility], | | | 2019 | Visit | | CHIEF BANK EXAMINER [address] | | | | | | [place] | | | | | | [address] | | +--------+ + + + + | 12/04/ | Office | Sleep Medicine | Bre Vivas | | | 2019 | Visit | | XAVI Saldana [address] | | | | | | [address] | | | | | | [place] [address] | | | | | | [phone] | | | | | | | [...] | 2019 | Visit | | CHIEF BANK EXAMINER [address] | | | | | | [place] | | | | | | [address] | | +--------+ + + + + | 12/11/ | Home Care | Home Health Services | Sohshana Caldwell, | | | 2019 | Visit [...] | 2019 | | | [address] [place] | | | | | | [place] [address] | | | | | | [phone] | | | | | | | [...] W | | | | | | [address] [place] | | | | | | [place] [address] | | | | | | [phone] | | | | | | | [...] | | | Description: By | | Xiin | | | | 11/22/19, The | [...] | | | | | | horn, cut off saw tender metal, leg | | | | | | clinical immunologist and dressing | | | | | [...] | | ssing | | | | blanket weaver strength of 5 | | | | [...] standard | | | | | | theresa murray, | | | | | | and [...]
--- OUTSIDE RECORDS SUMMARY | ~2019-11-29 | XMS | Encounter Summary ---
Demographics + + + | Address | [address] | | | [place] [address] | + + + | Home Phone | | + + + | Preferred Language | Unknown | + + + | Marital Status | | + + + | Quaker Affiliation | Unknown | + + + | Race | Unknown | + + + | Ethnic Group | Unknown | + + + Author + + + | Author | [facility] | | | and [place] | + + + | Organization | [facility] | | [...] Providers + +------+ + | Care Wall Cleaner Name | Role | Phone | + [...] Visit | [place] [address] | AUTO CARE CENTER MANAGER [address] | | | | | [address] [place], [place] | [place], [place] | | | | | [address] | [address] | | | | | [phone] | | | +--------+ + + + [...] encounter Miscellaneous Notes Home Health - RoryGrupo, AUTO CARE CENTER MANAGER - 11/08/2019 10:03 AM PDT1) Are you [...] 3 Travel Health Notice: [place]: [place], [place], [place] ([facility]): [place], [place], [place], [place], [place], [place], Sivan , Robert, Greece, [place], [place], [place], [place], [place], [place], [place], [facility], [place], [place], [place], [place], [place], [place], Isabelle, [place], [place], [facility], [place], [facility] [place] and [place]: [place], [place], [place], [place], [place] Indicate positive screen if: Answer to any question 1-5 is yes or answer to question 6 indicates travel to a Level 3 naam tination. Consult with security services manager prior to visit. Subjective: pt using rolling stool for mobility at therapist arrival. 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 that may affect outcomes including [...] Home Care | Home Health Services | Gruop Valadez, | | | 2019 | Visit | | AUTO CARE CENTER MANAGER [address] | | | | | | [address] [place] | | | | | | [address] | | +--------+ + + + + | 12/04/ | Home Care | Home Health Services | [facility], | | | 2019 | Visit | | AUTO CARE CENTER MANAGER [address] | | | | | | ST [place] | | | | | | [address] | | +--------+ + + + + | 12/04/ | Office | Sleep Medicine | Bre Vivas | | | 2019 | Visit | | XAVI Saldana [address] | | | | | [address] [place] | | | | | | [place] [address] | | | | | | [phone] | | | | | | | [...] | | 2019 | Visit | | AUTO CARE CENTER MANAGER [address] | | | | | | [address] [place] | | | | | | [address] | | +--------+ + + + + [...] [place]ACE | | | | | | [place] [address] | | | | | | [phone] | | | | | | | [...] | | | | | | [place] [address] | | | | | | [phone] | | | | | | | [...]
--- OUTSIDE RECORDS SUMMARY | ~2019-11-29 | XMS | Encounter Summary ---
Demographics + + + | Address | [address] | | | [place] [address] | + + + | Home Phone [...] | [facility] | | | and [place] | + + + | Organization | [facility] | | | and [place] [...] Team Providers + +------+ + | Care User Experience Lead Name | Role | Phone | + [...] | | | | | [place], [place] | | | | | | [address] | | | | | | [phone] | | | +--------+ + + + [...] | | 2019 | Visit | | LANGUAGE ARTS TEACHER [address] | | | | | | [place] | | | | | | [address] | | +--------+ + + + + | 12/04/ | Home Care | Home Health Services | [facility], | | | 2019 | Visit | | LANGUAGE ARTS TEACHER [address] | | | | | | [place] | | | | | | [address] | | +--------+ + + + + | 12/04/ | Office | Sleep Medicine | Bre Vivas | | | 2019 | Visit | | XAVI Saldana [address] | | | | | [address] | | | | | | [place] [address] | | | | | | [phone] | | | | | | | [...] | | 2019 | Visit | | LANGUAGE ARTS TEACHER [address] | | | | | | [place] | | | | | | [address] | | +--------+ + + + + [...] | | 2019 | | | [address] [facility] | | | | | | [place] [address] | | | | | | [phone] | | | | | | | [...] | | | | | [place] [address] | | | | | | [phone] | | | | | | | | +--------+ + + + + documented as of this encounter Visit Diagnoses Not on filedocumented in this encounter"
--- OUTSIDE RECORDS SUMMARY | ~2019-11-29 | XMS | Encounter Summary ---
Demographics + + + | Address | [address] | | | [place] [address] | + + + | Home Phone | | + + + | Preferred Language | Unknown | + + + | Marital Status | | + + + | Christianity Affiliation | Unknown | + + + | Race | Unknown | + + + | Ethnic Group | Unknown | + + + Author + + + | Author | [facility] | | | and [place] | + + + | Organization | [facility] | | | and [place] | [...] Team Providers + +------+ + | Care Highway Engineering Technician Name | Role | Phone | + [...] | | | | | [place], [place] | | | | | | [address] | | | | | | [phone] | | | +--------+ + + + [...] Level 3 Travel Health Notice: [place]: [place], [place], [place] Europe ([facility]): [place], [place], [place], [place], [place], [place], Sivan , Robert, Greece, [place], [place], [place], [place], [place], [place], [place], [facility], [place], [place], [place], Aaron, [place], [place], Isabelle, [place], [place], [facility], [place], [facility] [place] and [place]: [place], [place], [place], [place], [place] Indicate positive screen if: Answer to any question 1-5 is yes or answer to question 6 indicates travel to a Level 3 anam tination. Consult with manager apple prior to visit. Verified patient by name [...] | | 2019 | Visit | | SOFTWARE APPLICATIONS DESIGNER [address] | | | | | | [place] | | | | | | [address] | | +--------+ + + + + | 12/04/ | Home Care | Home Health Services | [facility], | | | 2019 | Visit | | SOFTWARE APPLICATIONS DESIGNER [address] | | | | | | [place] | | | | | | [address] | | +--------+ + + + + | 12/04/ | Office | Sleep Medicine | Bre Vivas | | | 2019 | Visit | | XAVI Saldana [address] | | | | | [address] | | | | | | [place] [address] | | | | | | [phone] | | | | | | | [...] | | 2019 | Visit | | SOFTWARE APPLICATIONS DESIGNER [address] | | | | | | [address] [place] | | | | | | [address] | | +--------+ + + + + [...] | | | 2019 | | | [address] [place] [address] | | | | | | [place] [address] | | | | | | [phone] | | | | | | | [...] | | | | | [place] [address] | | | | | | [phone] | | | | | | | | +--------+ + + + + documented as of this encounter Visit Diagnoses Not on filedocumented in this encounter"
--- OUTSIDE RECORDS SUMMARY | ~2019-11-29 | XMS | Encounter Summary ---
Demographics + + + | Address | [address] | | | [place] [address] | + + + | Home Phone | | + + + | Preferred Language | Unknown | + + + | Marital Status | | + + + | Evangelical Affiliation | Unknown | + + + | Race | Unknown | + + + | Ethnic Group | Unknown | + + + Author + + + | Author | [facility] | | | and [place] | + + + | Organization | [facility] | | | and [place] | [...] Team Providers + +------+ + | Care Set Up Mechanic Crown Assembly Machine Name | Role | Phone | [...] | [place] [address] | Am[place], [facility] | | | | | [place], [place] | [phone] | | | | | [address] | | | | | | [phone] | | | +--------+ + + + [...] | | 2019 | Visit | | TECHNICAL MAINTENANCE TECHNICIAN [address] | | | | | | [place] | | | | | | [address] | | +--------+ + + + + | 12/04/ | Home Care | Home Health Services | [facility], | | | 2019 | Visit | | TECHNICAL MAINTENANCE TECHNICIAN [address] | | | | | | [place] | | | | | | [address] | | +--------+ + + + + | 12/04/ | Office | Sleep Medicine | Bre Vivas | | | 2019 | Visit | | XAVI Saldana [address] | | | | | | [address] [place] | | | | | | [place] [address] | | | | | | [phone] | | | | | | | [...] [place] | | | | | | [address] | | +--------+ + + + + [...] | | | | | | [place] [address] | | | | | | [phone] | | | | | | | [...] | | | | | [place] [address] | | | | | | [phone] | | | | | | | | +--------+ + + + + documented as of this encounter Visit Diagnoses Not on filedocumented in this encounter"
--- OUTSIDE RECORDS SUMMARY | ~2019-11-29 | XMS | Encounter Summary ---
Demographics + + + | Address | [address] | | | [place] [address] | + + + | Home Phone | | + + + | Preferred Language | Unknown | + + + | Marital Status | | + + + | Zoroastrianism Affiliation | Unknown | + + + | Race | Unknown | + + + | Ethnic Group | Unknown | + + + Author + + + | Author | [facility] | | | and [place] | + + + | Organization | [facility] | | | and [place] [...] Team Providers + +------+ + | Care Inspector Precision Name | Role | Phone | + [...] 30 DAY) | | | | [place], [place] | | | | | | [address] | | | | | | [phone] | | | +--------+ + + + [...] any question 1-6 is yes. Consult with coating manager prior to visit. S - 59 y.o. Female with sepsis being seen by MARIUM for ADL performance. B - Patient reports she has been doing better today. Patient reports that she had an appt o n Monday at [facility] and was quite exhausted by the [...] OT demonstrated the use of a leg quality control operator for bed mobility, a grabber for dressing and ge neral uses around the house, and the use of a extra wide sock aid for donning socks. Patient was not up to trying the leg quality control operator or grabber for dressing today as she [...] | 2019 | Visit | | CHIEF ENGINEER DRILLING AND RECOVERY [address] | | | | | | [place] | | | | | | [address] | | +--------+ + + + + | 12/04/ | Home Care | Home Health Services | [facility], | | | 2019 | Visit | | CHIEF ENGINEER DRILLING AND RECOVERY [address] | | | | | | [place] | | | | | | [address] | | +--------+ + + + + | 12/04/ | Office | Sleep Medicine | Bre Vivas | | | 2019 | Visit | | XAVI Saldana [address] | | | | | | [address] | | | | | | [place] [address] | | | | | | [phone] | | | | | | | [...] Care | Home Health Services | Gr[facility] Valdaez, | | | 2019 | Visit | | CHIEF ENGINEER DRILLING AND RECOVERY [address] | | | | | | [place] | | | | | | [address] | | +--------+ + + + + [...] [place] | | | | | | [place] [address] | | | | | | [phone] | | | | | | | [...] W | | | | | | [address] [place] | | | | | | [place] [address] | | | | | | [phone] | | | | | | | [...] | | | | | | horn, paint roller cover machine setter, leg | | | | | | quality control operator and dressing | | | | | [...] | | ssing | | | | box toe flanger stitchdowns strength of 5 | | | | [...]
--- OUTSIDE RECORDS SUMMARY | ~2019-11-29 | XMS | Clinical Summary ---
Demographics + + + | Address | [address] | | | [place] [address] | + + + | Home Phone | | + + + | Preferred Language | Unknown | + + + | Marital Status | | + + + | Worship Affiliation | Unknown | + + + | Race | Unknown | + + + | Ethnic Group | Unknown | + + + Author + + + | Author | [facility] | | | and Bentleyana | + + + | Organization | [facility] | | | and Bentleyana [...] Team Providers + +------+ + | Care Computer Engineer Name | Role | Phone | + [...] daily. | | | 20 | | e | | tablet | [...] mcg by mouth | | 0 | 07/3 | | Activ | | (SYNTHROID) 50 mcg | every morning | | | 0/20 | | e | | tablet | (before breakfast). | | | 20 | | | + + + +---------+------+------+-------+ | Ascorbic Acid | Take 1,000 mg by | | 0 | 07/2 | | Activ | | (VITAMIN C) 1000 MG | mouth Daily. | | | 20 | | e | | tablet | | | | 20 | | | + + + +---------+------+------+-------+ | levothyroxine | Take 25 mcg by mouth | | 0 | | 07/3 | Disco | | (SYNTHROID, | every morning | | | | 1/20 | ntinu | | LEVOTHROID) 25 mcg | (before breakfast). | | | | 20 | ed | | tablet | | | | | | (Dose | | | | | | | | | | | | | | | | adjus | | | | | | | | tment | | | | | | | | ) | + + + +---------+------+------+-------+ Active Problems [...] | | 2020 | Visit | | DA Mueller | [...] | | 2019 | Visit | | WALLPAPER SCRAPER | | +--------+ + + + + | 11/24/ | Home Care | Home Health Services | [facility], | TELEPHONE ENCOUNTER | | 2019 | Visit | | WALLPAPER SCRAPER | | +--------+ + + + + [...] Home Health Services | Triston Holley | BIOINFORMATICS COMPUTER SCIENTIST SECONDARY EVAL | | 2019 | Visit | | SARNALDOSW | | +--------+ + + + + | 11/14/ | Home Care | Home Health Services | Eugenio Romeo | OT REPEAT VISIT | | 2019 | Visit | | M, MARIUM | | +--------+ + + + + | 11/14/ | Home Care | Home Health Services | [address] REPEAT VISIT | | 2019 | Visit | | Serena Rubio RRT | | +--------+ + + + + | 11/14/ | Home Care | Home Health Services | Hemal Sequeira, PT | CASE COMMUNICATION | | 2019 | Visit | | | | +--------+ + + + + | 11/14/ | Abstract | Cardiology | Zuhair Lee | | 2019 | | | MD [...] | | 2019 | Visit | | WALLPAPER SCRAPER | | +--------+ + + + + [...] Yulissa Gann, | TELEPHONE ENCOUNTER | | 2020 | Visit | | RN | | [...] | 10/21/ | Imaging | Radiology | Shadi, | | 2019 | Exam | | MD Edgardo | | +--------+ + + + + | 10/21/ | Imaging | Radiology | Shadi, | | | 2019 | Exam | [...] + | Lung cancer | Father | MARLIN | | + + +--------+ + | [...] + + + + Plan of Treatment +--------+ + + + + | Date | Type | Specialty | Care Team | Description | +--------+ + + + + | 12/02/ | Home Care | Home Health Services | [facility], | | | 2019 | Visit | | WALLPAPER SCRAPER [address] | | | | | | [place] | | | | | | [address] | | +--------+ + + + + | 12/04/ | Home Care | Home Health Services | [facility], | | | 2019 | Visit | | WALLPAPER SCRAPER [address] | | | | | | [place] | | | | | | [address] | | +--------+ + + + + | 12/04/ | Office | Sleep Medicine | [facility] | | | 2019 | Visit | | XAVI Saldana [address] | | | | | | [address] | | | | | | [place] [address] | | | | | | [phone] | | | | | | | [...] | | 2019 | Visit | | WALLPAPER SCRAPER [address] | | | | | | [place] | | | | | | [address] | | +--------+ + + + + | 12/11/ | Home Care | Home Health Services | Shoshana Caldwell, | | 2019 | Visit | | [...] [place] | | | | | | [place] [address] | | | | | | [phone] | | | | | | | [...] | | | | | [place] [address] | | | | | | [phone] | | | | | | | | +--------+ + + + + + + + [...] +--------+ + + + | EXTERNAL LAB: ROBRETO | Routin | 10/23/2019 | | Results [...] from Last 3 Months Results External Lab: [facility] (10/23/2019) + +-------+ + + + | [...] (H) | 70 - 109 mg/dL | [facility] | | | POC | | | [...] [address] | [place] | [phone] | | [facility] | | [address] | | | - LABORATORY | | [...] + | [facility] | [address] | [place], [place] | [phone] | | [facility] | | [address] | | | - LABORATORY | | [...] (L) | 1.6 - 2.6 mg/dL | [facility] | | | | [...] | + + + + + | [facility] | [address] | [place] | [phone] | | [facility] | | [address] | | | - LABORATORY | | [...] (H) | 9 - 23 mg/dL | [facility] | [facility] | | [facility] | | [facility] | | | | | | CENTER - | | | | | | LABORATORY | | + + + + + + | Creatinine | 2.47 (H) | 0.55 - 1.02 | [place] | | | | | mg/dL | [facility] | | | | | | MEDICAL | | | | | | CENTER - | | | | | | LABORATORY | | + + + + + + | eGFR, | 20 (L)Comment: | >=60 | [place] | | | non- | GLOMERULAR FILTRATION | mL/min/1.73m2 | [facility] | | | Omani | RATE,ESTIMATED | | MEDICAL | | | | mL/min/1.15a9Buoh than | | CENTER - | | [...] + | [facility] | [address] | [place] | [phone] | | [facility] | | [address] | | | - LABORATORY | | | | + + + + + Phosphorus (10/15/2019 4:55 AM PDT)Only the most recent of 2 results within the time kristen pollard is included. + +-------+ + + + | Component | Value | Ref Range | Performed | Pathologist | | | | | At | Signature | + +-------+ + + + | Phosphorus | 5.0 | 2.4 - 5.1 mg/dL | [facility] | [address] | [place] | [phone] | | [facility] | | [address] | | | - LABORATORY | | [...] | | | | | | n [place] | | | | | + +--------+ [...] | | | Protein | | | [facility] | | [...] + | [facility] | [address] | [place], [place] | [phone] | | [facility] | | [address] | | | - LABORATORY | | | | + + + + + Troponin I (10/14/2019 12:08 AM PDT)Only the most recent of 5 results within the time perio d is included. + + + + + [...] | | | | | | [employer] | | | | | [...] + | [facility] | [address] | [place] | [phone] | | [facility] | | [address] | | | - LABORATORY | | [...] [address] | [place] | [phone] | | [facility] | | [address] | | | - LABORATORY | | [...] | | | Urine | | | [facility] | | | Random | | [...] + | [facility] | [address] | [place] | [phone] | | [facility] | | [address] | | | - LABORATORY | | [...] | | | | | mOsm/kg | [facility] | | | | | [...] + | [facility] | [address] | [place], [place] | [phone] | | [facility] | | [address] | | | - LABORATORY | | [...] left kidney. | | | | Ko Bacan | + + + +---------+ + + [...] | | | | NIKKO PICKETT MD ([id number]) | | | | | | on [...] [address] | [place] | [phone] | | [facility] | | [address] | | | - LABORATORY | | [...] + | [facility] | [address] | [place] | [phone] | | [facility] | | [address] | | | - LABORATORY | | [...] + | [facility] | [address] | [place] | [phone] | | [facility] | | [address] | | | - LABORATORY | | [...] 9 | 3 - 16 mmol/L | [facility] | | | | | [...] | [facility] | [address] | [place] | [phone] | | [facility] | | [address] | | | - LABORATORY | | [...] | | | | | g/dL | [facility] | | | | [...] | | | Count | | | [facility] | | [...] | Low IPF are consistent | | [facility] | | | Fraction | with [...] | Immature | | K/uL | [facility] | | | Granulocyte | | [...] | [facility] | [address] | [place] | [phone] | | [facility] | | [address] | | | - LABORATORY | | [...] ST. | [address] | [place], [place] | [phone] | | [facility] | | [address] | | | - LABORATORY | | [...] +--------+ +---------+--------+ | MEDICARE | MEDICA | [id number] | 06/23/19 | [phone] | | Medica | | | RE | | 18-Pre | 5 | | re | | | PART A | | sent | | | | | | AND B | | | | | | + +--------+ +--------+ +---------+--------+ | [facility] | IHS | [id number] | | | | Indemn | | [...] | Self | [birth year] | | [address] | | | al/Fam | | 1961 | [phone] | [place] | | | joanna | | | 4 (Home) | [address] | + +--------+ +--------+ + + Advance Directives + + + + + | Type | Date Recorded | Patient | Explanation | | | | Undercoater | | + + + + + | Power of | | | | | Moto Mix Operator | | | | + + + [...]
--- OUTSIDE RECORDS SUMMARY | ~2019-11-29 | XMS | Encounter Summary ---
Demographics + + + | Address | [address] | | | [place] [address] | + + + | Home Phone [...] Author | [facility] | | | and Bentleyana | + + + | Organization | [facility] | | | and Bentleyana [...] Team Providers + +------+ + | Care Orthodontist Assistant Name | Role | Phone | [...] | | | | Lumbar | [place] [address] | [place], [place] | | | | | stenosis | Phone: | [phone] | | | | | with | [phone] | Phone: | | | | | neurogenic | Fax: | [phone] | | | | | claudication | [phone] | Fax: | | | | | Morbid | | [phone] | | | | | obesity with [...] back | Denis Dean DO | Kei eRyes MD | | | | | pain | [address] | [address] | | | | Procedures | [address] | [address] | | | | | [place] OFFICE | [place], | [place], | | | | | CONSULTATION | [place] [address] | [place] [address] | | | | | NEW/ESTAB | Phone: | Phone: | | | | | PATIENT 60 | [phone] | [phone] | | | | | MIN | Fax: | Fax: | | | | | | [phone] | [phone] | +--------+--------+ + + + + Encounter Details +--------+---------+ + + + | Date | Type | Department | Care Team | Description | +--------+---------+ + + + | 08/04/ | Office | [facility] | Kei Rao | Spondylolisthesis at | | 2016 | Visit | NEUROSURGERY [address] | MD Amy [address] | L5-S1 level | | | | [address] | [address] [place] | (Primary Dx); Lumbar | | | | [place], [place] | [place] [address] | stenosis with | | | | [address] | [phone] | neurogenic | | | | [phone] | | claudication; Morbid | | | | | | obesity with BMI of | | | | | | 50.0-59.9, adult | | | | | | ([facility]) | +--------+---------+ + + + Social History [...] Kei Rao MD [address] [facility] [address] [place], [place] [id number] FAX: NEUROSURGERY HISTORY AND PHYSICAL EXAMINATION CHIEF [...] has no apparent deficits with short or terminologist memory. CRANIAL NERVES: Fundoscopic Exam: The optic [...] Intrinsics 5 5 Ulnar Intrinsics 5 5 Cuff Setter Strength 5 5 Hip Flexion 5 5 [...] Morbid obesity with BMI of 50.0-59.9, adult ([facility]) GENERAL DIAGNOSES: Past Medical History Diagnosis Date Hypertensive disorder Morbid obesity ([facility]) Iron deficiency anemia Vitamin D deficiency Diabetic peripheral neuropathy ([facility]) Acquired hypothyroidism Mixed hyperlipidemia Chronic pain syndrome Pure hyperglyceridemia Bilateral knee pain Type 2 diabetes, uncontrolled, with neuropathy ([facility]) Closed displaced fracture of distal phalanx of [...] | | 2019 | Visit | | [facility] [address] | | | | | | [place] | | | | | | [address] | | +--------+ + + + + | 12/04/ | Home Care | Home Health Services | [facility], | | | 2019 | Visit | | [facility] [address] | | | | | | [place] | | | | | | [address] | | +--------+ + + + + | 12/04/ | Office | Sleep Medicine | Bre Vivas | | | 2019 | Visit | | XAVI Saldana [address] | | | | | | [address] | | | | | | [place] [address] | | | | | | [phone] | | | | | | | [...] | | 2019 | Visit | | [facility] [address] | | | | | | [facility] [place] [facility] [place] | | | | | | [address] | | +--------+ + + + + [...] [place] | | | | | | [place] [address] | | | | | | [phone] | | | | | | | [...] W | | | | | | [address] [place] | | | | | | [place] [address] | | | | | | [phone] | | | | | | | [...] adult | | | | | | ([facility]) | | + + +--------+ + + documented as of this encounter Visit Diagnoses + + | Diagnosis | + + | Spondylolisthesis at L5-S1 level - Primary | + + | Lumbar stenosis with neurogenic claudication Spinal stenosis, lumbar region, with | | neurogenic claudication | + + | Morbid obesity with BMI of 50.0-59.9, adult ([facility]) | + + documented in this encounter
--- OUTSIDE RECORDS SUMMARY | ~2019-11-29 | XMS | Encounter Summary ---
Demographics + + + | Address | [address] | | | [place] [address] | + + + | Home Phone [...] + + | Author | [facility] | | | and [place] | + + + | Organization | [facility] | | | and [...] Team Providers + +------+ + | Care Pattern Fitter Name | Role | Phone | + [...] | MED [facility] | MD [address] | | | | | IMAGING [address] | Kristen [address]ENG | | | | | [address] | [place] [address] | | | | | [place] [address] | | | | | | [phone] | | | +--------+ + + + [...] | | 2019 | Visit | | ESCAPE WHEEL TOOTH CUTTER [address] | | | | | | ST [place] | | | | | | [address] | | +--------+ + + + + | 12/04/ | Home Care | Home Health Services | [facility], | | | 2019 | Visit | | ESCAPE WHEEL TOOTH CUTTER [address] | | | | | | ST [place] | | | | | | [address] | | +--------+ + + + + | 12/04/ | Office | Sleep Medicine | [facility] | | | 2019 | Visit | | XAVI Saldana [address] | | | | | | [address] | | | | | | [place] [address] | | | | | | [phone] | | | | | | | [...] | | 2019 | Visit | | ESCAPE WHEEL TOOTH CUTTER [address] | | | | | | ST [place] | | | | | | [address] | | +--------+ + + + + [...] | 2019 | | | [address] [facility] | | | | | | [place] [address] | | | | | | [phone] | | | | | | | [...] | | | | | | [facility] | | | | | | [place] [address] | | | | | | [phone] | | | | | | | [...]
--- OUTSIDE RECORDS SUMMARY | ~2019-11-29 | XMS | Clinical Summary ---
Demographics + + + | Address | [address] | | | [place] [address] | + + + | Home Phone | | + + + | Preferred Language | Unknown | + + + | Marital Status | | + + + | Moravian Affiliation | Unknown | + + + | Race | Unknown | + + + | Ethnic Group | Unknown | + + + Author + + + | Author | [facility] | | | and Bentleyana | + + + | Organization | [facility] | | [...] Team Providers + +------+ + | Care International Sales Manager Name | Role | Phone | [...] | | 2019 | Visit | | WATER MAIN PIPE LAYER | | +--------+ + + + + | 11/24/ | Home Care | Home Health Services | [facility], | TELEPHONE ENCOUNTER | | 2019 | Visit | | WATER MAIN PIPE LAYER | | +--------+ + + + + [...] Home Health Services | Triston Holley | BUSINESS PLANNING DIRECTOR SECONDARY EVAL | | 2019 | Visit [...] | | 2019 | Visit | | WATER MAIN PIPE LAYER | | +--------+ + + + + [...] | 10/21/ | Imaging | Radiology | Sahdi, | | | 2019 | Exam | [...] | | 2019 | Visit | | WATER MAIN PIPE LAYER [address] | | | | | | [place] | | | | | | [address] | | +--------+ + + + + | 12/04/ | Home Care | Home Health Services | [facility], | | | 2019 | Visit | | WATER MAIN PIPE LAYER [address] | | | | | | [place] | | | | | | [address] | | +--------+ + + + + | 12/04/ | Office | Sleep Medicine | Bre [facility]as | | | 2019 | Visit | | XAVI Saldana [address] | | | | | | [address] | | | | | | [place] [address] | | | | | | [phone] | | | | | | | [...] | | 2019 | Visit | | WATER MAIN PIPE LAYER [address] | | | | | | [place] | | | | | | [address] | | +--------+ + + + + [...] [place] | | | | | | [place] [address] | | | | | | [phone] | | | | | | | [...] | | | | | [place] [address] | | | | | | [phone] | | | | | | | [...] [address] | [place] | [phone] | | [facility] | | [address] | | | - LABORATORY | | [...] | nRBC | | K/uL | [facility] | | | | [...] + | [facility] | [address] | [place], [place] | [phone] | | [facility] | | [address] | | | - LABORATORY | | [...] | + + + + + | [facility] | [address] | [place] | [phone] | | [facility] | | [address] | | | - LABORATORY | | [...] (H) | 9 - 23 mg/dL | [facility] | | | | | | [facility] | | | | | | MEDICAL | | | | | | CENTER - | | | | | | LABORATORY | | + + + + + + | Creatinine | 2.47 (H) | 0.55 - 1.02 | [place] | | | | | mg/dL | [facility] | | | | | | MEDICAL | | | | | | CENTER - | | | | | | LABORATORY | | + + + + + + | eGFR, | 20 (L)Comment: | >=60 | [place] | | | non- | GLOMERULAR FILTRATION | mL/min/1.73m2 | [facility] | | | French | RATE,ESTIMATED | | MEDICAL | | | | mL/min/1.65e9Brue than | | CENTER - | | [...] + | [facility] | [address] | [place] | [phone] | | [facility] | | [address] | | | - LABORATORY | | [...] ST. | [address] | [place] | [phone] | | [facility] | | [address] | | | - LABORATORY | | [...] | | | | | | n [place] | | | | | + +--------+ [...] + | [facility] | [address] | [place], [place] | [phone] | | [facility] | | [address] | | | - LABORATORY | | [...] | | | | | | [employer] | | | | | [...] + | [facility] | [address] | [place] | [phone] | | [facility] | | [address] | | | - LABORATORY | | [...] [address] | [place] | [phone] | | [facility] | | [address] | | | - LABORATORY | | [...] + | [facility] | [address] | [place] | [phone] | | [facility] | | [address] | | | - LABORATORY | | [...] + | [facility] | [address] | [place], [place] | [phone] | | [facility] | | [address] | | | - LABORATORY | | [...] | | | | NIKKO PICKETT MD ([id number]) | | | | | | on [...] [address] | [place] | [phone] | | [facility] | | [address] | | | - LABORATORY | | [...] + | [facility] | [address] | [place] | [phone] | | [facility] | | [address] | | | - LABORATORY | | [...] + | [facility] | [address] | [place] | [phone] | | [facility] | | [address] | | | - LABORATORY | | [...] [address] | [place] | [phone] | | [facility] | | [address] | | | - LABORATORY | | [...] [address] | [place] | [phone] | | [facility] | | [address] | | | - LABORATORY | | [...] ST. | [address] | [place], [place] | [phone] | | [facility] | | [address] | | | - LABORATORY | | [...] +--------+ +---------+--------+ | MEDICARE | MEDICA | [id number] | 06/23/19 | [phone] | | Medica | | | RE | | 18-Pre | 5 | | re | | | PART A | | sent | | | | | | AND B | | | | | | + +--------+ +--------+ +---------+--------+ | [facility] | IHS | [id number] | | | | Indemn | | [...] joanna | | | 4 (Home) | [address] | + +--------+ +--------+ + + Advance Directives + + + + + | Type | Date Recorded | Patient | Explanation | | | | Preparer | | + + + + + | Power of | | | | | Molding Cutter | | | | + + + [...]
--- OUTSIDE RECORDS SUMMARY | ~2019-11-29 | XMS | Encounter Summary ---
Demographics + + + | Address | [address] | | | [place] [address] | + + + | Home Phone [...] Author | [facility] | | | and Bentleyana | + + + | Organization | [facility] | | | and Bentleyana [...] Providers + +------+ + | Care Rn Patient Services Name | Role | Phone | + [...] [address] | | | | | [place], [place] | | | | | | [address] | | | | | | [phone] | | | +--------+ + + + [...] | | 2019 | Visit | | ORCHESTRA CONDUCTOR [address] | | | | | | [place] | | | | | | [address] | | +--------+ + + + + | 12/04/ | Home Care | Home Health Services | [facility], | | | 2019 | Visit | | ORCHESTRA CONDUCTOR [address] | | | | | | [place] | | | | | | [address] | | +--------+ + + + + | 12/04/ | Office | Sleep Medicine | Bre Vivas | | | 2019 | Visit | | XAVI Saldana [address] | | | | | | [address] | | | | | | [place] [address] | | | | | | [phone] | | | | | | | [...] | | 2019 | Visit | | ORCHESTRA CONDUCTOR [address] | | | | | | [address] [place] | | | | | | [address] | | +--------+ + + + + [...] | | | | | [place] [address] | | | | | | [phone] | | | | | | | [...] | | | | | [place] [address] | | | | | | [phone] | | | | | | | | +--------+ + + + + documented as of this encounter Visit Diagnoses Not on filedocumented in this encounter"
--- OUTSIDE RECORDS SUMMARY | ~2019-11-29 | XMS | Encounter Summary ---
Demographics + + + | Address | [address] | | | [place] [address] | + + + | Home Phone | | + + + | Preferred Language | Unknown | + + + | Marital Status | | + + + | Restorationism Affiliation | Unknown | + + + | Race | Unknown | + + + | Ethnic Group | Unknown | + + + Author + + + | Author | [facility] | | | and Bentleyana | + + + | Organization | [facility] | | | and [...] Team Providers + +------+ + | Care Associate Scientist Name | Role | Phone | + [...] [address] [place] | | | | | [place], [place] | [place] [address] | | | | | [address] | [phone] | | | | | [phone] | | | +--------+ + + + [...] | | 2019 | Visit | | RESPIRATORY THERAPY MANAGER [address] | | | | | | ST [place] | | | | | | [address] | | +--------+ + + + + | 12/04/ | Home Care | Home Health Services | [facility], | | | 2019 | Visit | | RESPIRATORY THERAPY MANAGER [address] | | | | | | [place] | | | | | | [address] | | +--------+ + + + + | 12/04/ | Office | Sleep Medicine | Bre Vivas | | | 2019 | Visit | | XAVI Saldana [address] | | | | | | [address] | | | | | | [place] [address] | | | | | | [phone] | | | | | | | [...] | | 2019 | Visit | | RESPIRATORY THERAPY MANAGER [address] | | | | | | [address] [place] | | | | | | [address] | | +--------+ + + + + [...] | | | | | | [place] [address] | | | | | | [phone] | | | | | | | [...] | | | | | | [place] [address] | | | | | | [phone] | | | | | | | | +--------+ + + + + documented as of this encounter Visit Diagnoses Not on filedocumented in this encounter"
--- OUTSIDE RECORDS SUMMARY | ~2019-11-29 | XMS | Encounter Summary ---
Demographics + + + | Address | [address] | | | [place] [address] | + + + | Home Phone | | + + + | Preferred Language | Unknown | + + + | Marital Status | | + + + | Judaism Affiliation | Unknown | + + + | Race | Unknown | + + + | Ethnic Group | Unknown | + + + Author + + + | Author | [facility] | | | and Bentleyana | + + + | Organization | [facility] | | | and [...] Team Providers + +------+ + | Care Deputy Attorney General Name | Role | Phone | + [...] [address] | [address] [facility] | (COUNT OR 30 DAY) | | | | [place], [place] | [facility] [place] [address] | | | | | [address] | [phone] | | | | | [phone] | | | +--------+ + + + [...] this encounter Miscellaneous Notes Home Health - Hemal Sequeira, PT - 11/12/2019 11:00 [...] Level 3 Travel Health Notice: [place]: [place], [place], [place] ([facility] Area): [place], [place], [place], [place], [place], [place], Sivan , Robert, Greece, [place], [place], [place], [place], [place], [place], [place], [place], [place], [place], [place], [place], [place], [place], Isabelle, [place], [place], [place], [place], [facility] [place] and [place]: [place], [place], [place], [place], [place] Indicate positive screen if: Answer to any question 1-5 is yes or answer to question 6 indicates travel to a Level 3 anam tination. Consult with manager software development prior to visit. S: Patient states that [...] up. Discussed seated HEP as provided by PROCESS LABORATORY SPECIALIST last visit. She is doing that several [...] | | 2019 | Visit | | PROCESS LABORATORY SPECIALIST [address] | | | | | | [place] | | | | | | [address] | | +--------+ + + + + | 12/04/ | Home Care | Home Health Services | [facility], | | | 2019 | Visit | | PROCESS LABORATORY SPECIALIST [address] | | | | | | [place] | | | | | | [address] | | +--------+ + + + + | 12/04/ | Office | Sleep Medicine | Bre Viv[facility] | | | 2019 | Visit | | XAVI Saldana [address] | | | | | | [address] | | | | | | [place] [address] | | | | | | [phone] | | | | | | | [...] | | 2019 | Visit | | PROCESS LABORATORY SPECIALIST [address] | | | | | | [place] | | | | | | [address] | | +--------+ + + + + [...] [place] | | | | | | [place] [address] | | | | | | [phone] | | | | | | | [...] [place] | | | | | | [place] [address] | | | | | | [phone] | | | | | | | [...] | | | | | assistance by 8/ | | | | | | 8/20.The patient | | | | | | [...] +--------+--------+ + | PT transfer | Problem: PT | | | | | training | IMPAIRED | Comple | | | | Description: | TRANSFERSGoal: PT | nellie | | | | [...]
--- OUTSIDE RECORDS SUMMARY | ~2019-11-29 | XMS | Encounter Summary ---
Demographics + + + | Address | [address] | | | [place] [address] | + + + | Home Phone | | + + + | Preferred Language | Unknown | + + + | Marital Status | | + + + | Church Affiliation | Unknown | + + + | Race | Unknown | + + + | Ethnic Group | Unknown | + + + Author + + + | Author | [facility] | | | and Bentleyana | + + + | Organization | [facility] [...] Team Providers + +------+ + | Care Supervisor Asphalt Paving Name | Role | Phone | + [...] Visit | [place] [address] | IMPORT COORDINATOR [address] | | | | | [place], [place] | [place], [place] | | | | | [address] | [address] | | | | | [phone] | | | +--------+ + + + [...] | | 2019 | Visit | | IMPORT COORDINATOR [address] | | | | | | [place] | | | | | | [address] | | +--------+ + + + + | 12/04/ | Home Care | Home Health Services | [facility], | | | 2019 | Visit | | IMPORT COORDINATOR [address] | | | | | | [place] | | | | | | [address] | | +--------+ + + + + | 12/04/ | Office | Sleep Medicine | Bre Vivas | | 2019 | Visit | | XAVI Saldana [address] | | | | | | [address] | | | | | | [place] [address] | | | | | | [phone] | | | | | | | [...] | | 2019 | Visit | | IMPORT COORDINATOR [address] | | | | | | [address] [place] | | | | | | [address] | | +--------+ + + + + [...] | | | | | [place] [address] | | | | | | [phone] | | | | | | | [...] | | | | | [place] [address] | | | | | | [phone] | | | | | | | | +--------+ + + + + documented as of this encounter Visit Diagnoses Not on filedocumented in this encounter"
--- OUTSIDE RECORDS SUMMARY | ~2019-11-29 | XMS | Encounter Summary ---
Demographics + + + | Address | [address] | | | [place] [address] | + + + | Home Phone [...] | Author | [facility] | | | and Bentleyana | + + + | Organization | [facility] | | | and Bentleyana | [...] Team Providers + +------+ + | Care Erisa Attorney Name | Role | Phone | + [...] Dean | | | | | [place], [place] | | | | | | [address] | | | | | | [phone] | | | +--------+ + + + [...] | | 2019 | Visit | | ARM MAKER [address] | | | | | | [place] | | | | | | [address] | | +--------+ + + + + | 12/04/ | Home Care | Home Health Services | [facility], | | | 2019 | Visit | | ARM MAKER [address] | | | | | | [place] | | | | | | [address] | | +--------+ + + + + | 12/04/ | Office | Sleep Medicine | Bre Vivas | | | 2019 | Visit | | XAVI Saldana [address] | | | | | | [address] | | | | | | [place] [address] | | | | | | [phone] | | | | | | | [...] | | 2019 | Visit | | ARM MAKER [address] | | | | | | [place], [place] | | | | | | [address] | | +--------+ + + + + [...] | | | | | | [place] [address] | | | | | | [phone] | | | | | | | [...] | | | | | [place] [address] | | | | | | [phone] | | | | | | | | +--------+ + + + + documented as of this encounter Visit Diagnoses Not on filedocumented in this encounter"
--- OUTSIDE RECORDS SUMMARY | ~2019-11-29 | XMS | Encounter Summary ---
Demographics + + + | Address | [address] | | | [place] [address] | + + + | Home Phone | | + + + | Preferred Language | Unknown | + + + | Marital Status | | + + + | Mormon Affiliation | Unknown | + + + | Race | Unknown | + + + | Ethnic Group | Unknown | + + + Author + + + | Author | [facility] | | | and Bnetleyana | + + + | Organization | [facility] | | | and [...] Providers + +------+ + | Care Orthodontist Name | Role | Phone | + [...] [address] | | | | | [place], [place] | | | | | | [address] | | | | | | [phone] | | | +--------+ + + + [...] | | 2019 | Visit | | HATCH SUPERVISOR [address] | | | | | | [place] | | | | | | [address] | | +--------+ + + + + | 12/04/ | Home Care | Home Health Services | [facility], | | | 2019 | Visit | | HATCH SUPERVISOR [address] | | | | | | [place] | | | | | | [address] | | +--------+ + + + + | 12/04/ | Office | Sleep Medicine | Bre Vivas | | | 2019 | Visit | | XAVI Saldana [address] | | | | | | [address] | | | | | | [place] [address] | | | | | | [phone] | | | | | | | [...] | | 2019 | Visit | | HATCH SUPERVISOR [address] | | | | | | [place] | | | | | | [address] | | +--------+ + + + + [...] | | | | | [place] [address] | | | | | | [phone] | | | | | | | [...] | | | | | [place] [address] | | | | | | [phone] | | | | | | | | +--------+ + + + + documented as of this encounter Visit Diagnoses Not on filedocumented in this encounter"
--- OUTSIDE RECORDS SUMMARY | ~2019-11-29 | XMS | Encounter Summary ---
Demographics + + + | Address | [address] | | | [place] [address] | + + + | Home Phone | | + + + | Preferred Language | Unknown | + + + | Marital Status | | + + + | Voodoo Affiliation | Unknown | + + + | Race | Unknown | + + + | Ethnic Group | Unknown | + + + Author + + + | Author | [facility] | | | and Bentleyana | + + + | Organization | [facility] | | | and [...] Team Providers + +------+ + | Care Veneer Taping Machine Operator Name | Role | Phone [...] [place] | | | | | | [address] | | | | | | [phone] | | | +--------+ + + + [...] Level 3 Travel Health Notice: [place]: [place], [place], [place] ([facility] Area): [place], [place], [place], [place], [place], [place], Sivan , Robert, Greece, [place], [place], [place], [place], [place], [place], [facility], [facility], [place], [place], [place], Aaron, Slov[place], [place], Isabelle, [place], [place], [facility], [place], [facility] [place] and [place]: [place], [place], [place], [place], [place] Indicate positive screen if: Answer to any question 1-5 is yes or answer to question 6 indicates travel to a Level 3 anam tination. Consult with manager program management prior to visit. S. Pt with recent [...] | | 2019 | Visit | | QUALITY LIAISON [address] | | | | | | [place], [place] | | | | | | [address] | | +--------+ + + + + | 12/04/ | Home Care | Home Health Services | [facility], | | | 2019 | Visit | | QUALITY LIAISON [address] | | | | | | [place] | | | | | | [address] | | +--------+ + + + + | 12/04/ | Office | Sleep Medicine | Ortega Bre | | | 2019 | Visit | | XAVI Saldana [address] | | | | | | [address] [place] | | | | | | [place] [address] | | | | | | [phone] | | | | | | | [...] | | 2019 | Visit | | QUALITY LIAISON [address] | | | | | | [place] | | | | | | [address] | | +--------+ + + + + [...] | | | | | | [place] [address] | | | | | | [phone] | | | | | | | [...] | | | | | [place] [address] | | | | | | [phone] | | | | | | | | +--------+ + + + + documented as of this encounter Visit Diagnoses Not on filedocumented in this encounter Home Health Visit - Care Plan + + | Visit Type - SN - REPEAT VISIT | | Discipline - Fci | + + + + +--------+--------+ + + | Problem | Description | Start | Status | Goals | Interventio | | | | Date | | | ns | + + +--------+--------+ + + | Diabetes | Diabetes | | | 1 goal | 1 goal | | Disciplines: | | 10/24/19 | Active | linked to | interventio | | Fci | | 20 | | scheduled/d | [...] | | scheduled/d | n | | Fci | | | | ocumented | scheduled/d [...] | | scheduled/d | n | | Fci | | | | ocumented | scheduled/d [...] | | scheduled/d | n | | Fci | | | | ocumented | scheduled/d [...] | linked to | interventio | | Fci | | 20 | | scheduled/d | [...] | | scheduled/d | n | | Fci | | | | ocumented | scheduled/d [...] | | | | n | | Fci | | | | | scheduled/d | [...] | linked to | interventio | | Fci | | 20 | | scheduled/d | [...]
--- OUTSIDE RECORDS SUMMARY | ~2019-11-29 | XMS | Encounter Summary ---
Demographics + + + | Address | [address] | | | [place] [address] | + + + | Home Phone | | + + + | Preferred Language | Unknown | + + + | Marital Status | | + + + | Hoahaoism Affiliation | Unknown | + + + | Race | Unknown | + + + | Ethnic Group | Unknown | + + + Author + + + | Author | [facility] | | | and Bentleyana | + + + | Organization | [facility] | | [...] Team Providers + +------+ + | Care Press Clipper Name | Role | Phone | + [...] Visit | [place] [address] | EVENING OR NIGHT NURSE SUPERVISOR [address] | | | | | [place], [place] | [place], [place] | | | | | [address] | [address] | | | | | [phone] | | | +--------+ + + + [...] | | 2019 | Visit | | EVENING OR NIGHT NURSE SUPERVISOR [address] | | | | | | [place] | | | | | | [address] | | +--------+ + + + + | 12/04/ | Home Care | Home Health Services | [facility], | | | 2019 | Visit | | EVENING OR NIGHT NURSE SUPERVISOR [address] | | | | | | [place] | | | | | | [address] | | +--------+ + + + + | 12/04/ | Office | Sleep Medicine | Bre Vivas | | 2019 | Visit | | XAVI Saldana [address] | | | | | | [address] | | | | | | [place] [address] | | | | | | [phone] | | | | | | | [...] | | 2019 | Visit | | EVENING OR NIGHT NURSE SUPERVISOR [address] | | | | | | [address] [place] | | | | | | [address] | | +--------+ + + + + [...] | | | | | [place] [address] | | | | | | [phone] | | | | | | | [...] | | | | | [place] [address] | | | | | | [phone] | | | | | | | | +--------+ + + + + documented as of this encounter Visit Diagnoses Not on filedocumented in this encounter"
--- OUTSIDE RECORDS SUMMARY | ~2019-11-29 | XMS | Encounter Summary ---
Demographics + + + | Address | [address] | | | [place] [address] | + + + | Home Phone | | + + + | Preferred Language | Unknown | + + + | Marital Status | | + + + | Samaritan Affiliation | Unknown | + + + | Race | Unknown | + + + | Ethnic Group | Unknown | + + + Author + + + | Author | [facility] | | | and Bentleyana | + + + | Organization | [facility] | | | and [...] Providers + +------+ + | Care Assistant Offset Press Operator Name | Role | Phone | [...] [place] [address] | [address] [facility] | | | | | ST [place], [place] | [place] [address] | | | | | [address] | [phone] | | | | | [phone] | | | +--------+ + + + [...] | | 2019 | Visit | | FORMING ROLL OPERATOR HEAVY DUTY [address] | | | | | | [place] | | | | | | [address] | | +--------+ + + + + | 12/04/ | Home Care | Home Health Services | [facility], | | | 2019 | Visit | | FORMING ROLL OPERATOR HEAVY DUTY [address] | | | | | | [place] | | | | | | [address] | | +--------+ + + + + | 12/04/ | Office | Sleep Medicine | Bre Vivas | | 2019 | Visit | | XAVI Saldana [address] | | | | | | [address] [place] | | | | | | [place] [address] | | | | | | [phone] | | | | | | | [...] | | 2019 | Visit | | FORMING ROLL OPERATOR HEAVY DUTY [address] | | | | | | [place] | | | | | | [phone] | | +--------+ + + + + [...] | | | | | [place] [address] | | | | | | [phone] | | | | | | | [...] | | | | | | [place] [address] | | | | | | [phone] | | | | | | | | +--------+ + + + + documented as of this encounter Visit Diagnoses Not on filedocumented in this encounter"
--- OUTSIDE RECORDS SUMMARY | ~2019-11-29 | XMS | Encounter Summary ---
Demographics + + + | Address | [address] | | | [place] [address] | + + + | Home Phone | | + + + | Preferred Language | Unknown | + + + | Marital Status | | + + + | Congregational Affiliation | Unknown | + + + | Race | Unknown | + + + | Ethnic Group | Unknown | + + + Author + + + | Author | [facility] | | | and Bentleyana | + + + | Organization | [facility] | [...] Team Providers + +------+ + | Care Chicken Sexer Name | Role | Phone | + [...] Home Care | [facility] [place] | Eugneio Romeo | CASE COMMUNICATION | | 2020 | Visit | [place] [address] | [address] | | | | | [place], [place] | | | | | | [address] | | | | | | [phone] | | | +--------+ + + + [...] | | 2019 | Visit | | METALWORKER [address] | | | | | | [place] | | | | | | [address] | | +--------+ + + + + | 12/04/ | Home Care | Home Health Services | [facility], | | | 2019 | Visit | | METALWORKER [address] | | | | | | [place] | | | | | | [address] | | +--------+ + + + + | 12/04/ | Office | Sleep Medicine | Bre Vivas | | | 2019 | Visit | | XAVI Saldana [address] | | | | | | [address] | | | | | | [place] [address] | | | | | | [phone] | | | | | | | [...] | | 2019 | Visit | | METALWORKER [address] | | | | | | [place], [place] | | | | | | [address] | | +--------+ + + + + [...] | | | | | | [place] [address] | | | | | | [phone] | | | | | | | [...] | | | | | [place] [address] | | | | | | [phone] | | | | | | | | +--------+ + + + + documented as of this encounter Visit Diagnoses Not on filedocumented in this encounter"
--- OUTSIDE RECORDS SUMMARY | ~2019-11-29 | XMS | Encounter Summary ---
Demographics + + + | Address | [address] | | | [place] [address] | + + + | Home Phone | | + + + | Preferred Language | Unknown | + + + | Marital Status | | + + + | Islam Affiliation | Unknown | + + + | Race | Unknown | + + + | Ethnic Group | Unknown | + + + Author + + + | Author | [facility] | | | and Bentleyana | + + + | Organization | [facility] | | | and [...] Team Providers + +------+ + | Care Freezer Tunnel Operator Name | Role | Phone | [...] | MED CTR EXTERNAL | MD [address] | | | | | IMAGING [address] | [address] | | | | | [address] | [place] [address] | | | | | [place] [address] | | | | | | [phone] | | | +--------+ + + + [...] | | 2019 | Visit | | SENIOR DATA MINING ANALYST [address] | | | | | | [place] | | | | | | [address] | | +--------+ + + + + | 12/04/ | Home Care | Home Health Services | [facility], | | | 2019 | Visit | | SENIOR DATA MINING ANALYST [address] | | | | | | [place] | | | | | | [address] | | +--------+ + + + + | 12/04/ | Office | Sleep Medicine | Bre [facility]as | | | 2019 | Visit | | XAVI Saldana [address] | | | | | | [address] | | | | | | [place] [address] | | | | | | [phone] | | | | | | | [...] | | 2019 | Visit | | SENIOR DATA MINING ANALYST [address] | | | | | | [place] | | | | | | [address] | | +--------+ + + + + [...] | 2019 | | | [address] [facility] | | | | | | [place] [address] | | | | | | [phone] | | | | | | | [...] | 01/22/ | Office | Cardiology | Zuhiar Lee | | 2019 | Visit | | MD Walker [address] | | | | | | [place] [facility] | | | | | | [place] [address] | | | | | | [phone] | | | | | | | [...]
--- OUTSIDE RECORDS SUMMARY | ~2019-11-29 | XMS | Encounter Summary ---
Demographics + + + | Address | [address] | | | [place] [address] | + + + | Home Phone | | + + + | Preferred Language | Unknown | + + + | Marital Status | | + + + | Anabaptism Affiliation | Unknown | + + + | Race | Unknown | + + + | Ethnic Group | Unknown | + + + Author + + + | Author | [facility] | | | and Bentleyana | + + + | Organization | [facility] | | | and Bentleyana [...] Team Providers + +------+ + | Care Groundwater Monitoring Technician Name | Role | Phone | + +------+ + | Denis Galindo DO | PCP | | + +------+ + Encounter Details +--------+ + + + + | Date | Type | Department | Care Team | Description | +--------+ + + + + | 08/04/ | [facility] | [facility] | Kei Rao | Low back pain, | | 2016 | Encounter | MED CTR XRAY [address] | unspecified back | | | | [place] | [address] [place] | pain laterality, | | | | [place] [address] | [place] [address] | with sciatica | | | | [phone] | [phone] | presence unspecified | | | | [...] | 2019 | Visit | | QUALITY SUPERVISOR [address] | | | | | | [place] | | | | | | [address] | | +--------+ + + + + | 12/04/ | Home Care | Home Health Services | [facility], | | | 2019 | Visit | | GIRISH [address] | | | | | | [place] | | | | | | [address] | | +--------+ + + + + | 12/04/ | Office | Sleep Medicine | Bre Vivas | | | 2019 | Visit | | XAVI Saldana [address] | | | | | | [address] | | | | | | [place] [address] | | | | | | [phone] | | | | | | | [...] | 2019 | Visit | | QUALITY SUPERVISOR [address] | | | | | | [place] | | | | | | [address] | | +--------+ + + + + [...] [place] | | | | | | [place] [address] | | | | | | [phone] | | | | | | | [...] | | | | | | [facility] | | | | | | [place] [address] | | | | | | [phone] | | | | | | | [...] ST. | [address] | [place] | [phone] | | [facility] | | [address] | | | - IMAGING | | | | + + + + + documented in this encounter Visit Diagnoses + + | Diagnosis | + + | Low back pain, unspecified back pain laterality, with sciatica presence unspecified | + + documented in this encounter"
--- OUTSIDE RECORDS SUMMARY | ~2019-11-29 | XMS | Encounter Summary ---
Demographics + + + | Address | [address] | | | [place] [address] | + + + | Home Phone | | + + + | Preferred Language | Unknown | + + + | Marital Status | | + + + | Buddhist Affiliation | Unknown | + + + | Race | Unknown | + + + | Ethnic Group | Unknown | + + + Author + + + | Author | [facility] | | | and Bentleyana | + + + | Organization | [facility] | | | and Bentleyana | [...] Team Providers + +------+ + | Care Pipe And Test Supervisor Name | Role | Phone | [...] | | | | [place] | | | | | | [address] | | | | | | [phone] | | | +--------+ + + + [...] | | 2019 | Visit | | BUSINESS EMPLOYMENT SPECIALIST [address] | | | | | | [place] | | | | | | [address] | | +--------+ + + + + | 12/04/ | Home Care | Home Health Services | [facility], | | | 2019 | Visit | | BUSINESS EMPLOYMENT SPECIALIST [address] | | | | | | [place] | | | | | | [address] | | +--------+ + + + + | 12/04/ | Office | Sleep Medicine | Bre Vivas | | | 2019 | Visit | | XAVI Saldana [address] | | | | | | [address] | | | | | | [place] [address] | | | | | | [phone] | | | | | | | [...] | | 2019 | Visit | | BUSINESS EMPLOYMENT SPECIALIST [address] | | | | | | [place], [place] | | | | | | [address] | | +--------+ + + + + [...] | | | | | [place] [address] | | | | | | [phone] | | | | | | | [...] | | | | | [place] [address] | | | | | | [phone] | | | | | | | | +--------+ + + + + documented as of this encounter Visit Diagnoses Not on filedocumented in this encounter"
--- OUTSIDE RECORDS SUMMARY | ~2019-11-29 | XMS | Encounter Summary ---
Demographics + + + | Address | [address] | | | [place] [address] | + + + | Home Phone [...] + | Author | [facility] | | | and [place] | + + + | Organization | [facility] [...] Team Providers + +------+ + | Care Ctrs Name | Role | Phone | + [...] 11/11/ | Home Care | [facility] [place] | Medina Cruz, | SN REPEAT VISIT | | 2019 | Visit | [facility] [address] | RN | | | | | ST [place] | | | | | | [address] | | | | | | [phone] | | | +--------+ + + + [...] Are you or anyone you live w [facility] experiencing any of the following symptoms? [...] 30 days? No Screening is: Negative S- senior living visit for assessment of skin, medications, pain, [...] marilyn ry other day with good results. Appeitie fair, does cooking. Patient reports anxiety when ambulating. [...] Home Care | Home Health Services | Gurpo Valadez, | | 2019 | Visit | | HARD METALS ENGRAVER HAND [address] | | | | | | [place] | | | | | | [address] | | +--------+ + + + + | 12/04/ | Home Care | Home Health Services | [facility] Val[facility], | | 2019 | Visit | | HARD METALS ENGRAVER HAND [address] | | | | | | [place] | | | | | | [address] | | +--------+ + + + + | 12/04/ | Office | Sleep Medicine | Bre Vivas | | 2019 | Visit | | XAVI Saldana [address] | | | | | [address] | | | | | | [place] [address] | | | | | | [phone] | | | | | | | [...] | | 2019 | Visit | | HARD METALS ENGRAVER HAND [address] | | | | | | [place] | | | | | | [address] | | +--------+ + + + + | 12/11/ | Home Care | Home Health Services | Shoshana Caldwlel, | | | 2019 | Visit | [...] | | | | | [place] [address] | | | | | | [phone] | | | | | | | [...] | | | | | [place] [address] | | | | | | [phone] | | | | | | | | +--------+ + + + + documented as of this encounter Visit Diagnoses Not on filedocumented in this encounter Home Health Visit - Care Plan + + | Visit Type - SN - REPEAT VISIT | | Discipline - Fdc | + + + + +--------+--------+ + + | Problem | Description | Start | Status | Goals | Interventio | | | | Date | | | ns | + + +--------+--------+ + + | Diabetes | Diabetes | | | 1 goal | 2 goal | | Disciplines: | | 10/24/19 | Active | linked to | interventio | | Fdc | | 20 | | scheduled/d | [...] | | scheduled/d | n | | Fdc | | | | ocumented | scheduled/d [...] | linked to | interventio | | Fdc | | 20 | | scheduled/d | [...] | | scheduled/d | n | | Fdc | | | | ocumented | scheduled/d [...] | linked to | interventio | | Fdc | | 20 | | scheduled/d | [...] the patient | | diabetic | Goal: [facility] | Comple | | for clinical [...] not doing | | monitoring | Goal: [facility] | Comple | | blood sugar [...]
--- OUTSIDE RECORDS SUMMARY | ~2019-11-29 | XMS | Encounter Summary ---
Demographics + + + | Address | [address] | | | [place] [address] | + + + | Home Phone | | + + + | Preferred Language | Unknown | + + + | Marital Status | | + + + | Faith Affiliation | Unknown | + + + | Race | Unknown | + + + | Ethnic Group | Unknown | + + + Author + + + | Author | [facility] | | | and [place] | + + + | Organization | [facility] | | | and [place] [...] Team Providers + +------+ + | Care Glassware Finisher Name | Role | Phone | + [...] [place] | | | | | | [address] | | | | | | [phone] | | | +--------+ + + + [...] Level 3 Travel Health Notice: [place]: [place], [place], [place] ([facility]): [place], [place], [place], [place], [place], [place], [place] , [place], [place], [place], [place], [place], [place], [place], [place], [place], [facility], [place], [place], [place], [place], [place], [place], [place], [place], [place], [facility], [place], [facility] [place] and [place]: [place], [place], [place], [place], [place] Indicate positive screen if: Answer to any question 1-5 is yes or answer to question 6 indicates travel to a Level 3 anam tination. Consult with legal support manager prior to visit. S - 59 y.o. Female with sepsis being seen by OT for Energy conservation. B - BOX REPAIRER was present during today's visit. Patient reports [...] - Continue original POC - trial leg lacquer spray booth operator for bed transfers. documented in this encounter Plan of Treatment +--------+ + + + + | Date | Type | Specialty | Care Team | Description | +--------+ + + + + | 12/02/ | Home Care | Home Health Services | [facility], | | | 2019 | Visit | | AUTOMOTIVE SALES ASSOCIATE [address] | | | | | | [place] | | | | | | [address] | | +--------+ + + + + | 12/04/ | Home Care | Home Health Services | Gr[facility] Val[facility]z, | | | 2019 | Visit | | AUTOMOTIVE SALES ASSOCIATE [address] | | | | | | [place] | | | | | | [address] | | +--------+ + + + + | 12/04/ | Office | Sleep Medicine | Bre Vivas | | | 2019 | Visit | | XAVI Saldana [address] | | | | | | [address] | | | | | | [place] [address] | | | | | | [phone] | | | | | | | [...] | | 2019 | Visit | | AUTOMOTIVE SALES ASSOCIATE [address] | | | | | | [place] | | | | | | [address] | | +--------+ + + + + [...] | 2019 | | | [address] [facility] | | | | | | [place] [address] | | | | | | [phone] | | | | | | | [...] Olivarez | | | | | | [place] [address] | | | | | | [phone] | | | | | | | [...]
--- OUTSIDE RECORDS SUMMARY | ~2019-11-29 | XMS | Encounter Summary ---
Demographics + + + | Address | [address] | | | [place] [address] | + + + | Home Phone | | + + + | Preferred Language | Unknown | + + + | Marital Status | | + + + | Yazdanism Affiliation | Unknown | + + + | Race | Unknown | + + + | Ethnic Group | Unknown | + + + Author + + + | Author | [facility] | | | and [place] | + + + | Organization | [facility] | | | and [place] [...] Providers + +------+ + | Care Rn Ccu Name | Role | Phone | + [...] [place] | | | | | | [address] | | | | | | [phone] | | | +--------+ + + + [...] Are you or anyone you live w [facility] experiencing any of the following symptoms? [...] 30 days? No Screening is: Negative S- care home visit for assessment of skin, medications, pain, [...] | | 2019 | Visit | | GREASE MAKER HEAD [address] | | | | | | [place] | | | | | | [address] | | +--------+ + + + + | 12/04/ | Home Care | Home Health Services | Gr[facility] Valadez, | | 2019 | Visit | | GREASE MAKER HEAD [address] | | | | | | [place] | | | | | | [address] | | +--------+ + + + + | 12/04/ | Office | Sleep Medicine | Bre Vivas | | 2019 | Visit | | XAVI Saldana [address] | | | | | | [address] | | | | | | [place] [address] | | | | | | [phone] | | | | | | | [...] | | 2019 | Visit | | GREASE MAKER HEAD [address] | | | | | | [place] | | | | | | [address] | | +--------+ + + + + [...] | | | | | [place] [address] | | | | | | [phone] | | | | | | | [...] | | | | | [place] [address] | | | | | | [phone] | | | | | | | | +--------+ + + + + documented as of this encounter Visit Diagnoses Not on filedocumented in this encounter Home Health Visit - Care Plan + + | Visit Type - SN - REPEAT VISIT | | Discipline - Long-Term | + + + + +--------+--------+ + + | Problem | Description | Start | Status | Goals | Interventio | | | | Date | | | ns | + + +--------+--------+ + + | Diabetes | Diabetes | | | 1 goal | 2 goal | | Disciplines: | | 10/24/19 | Active | linked to | interventio | | Long-Term | | 20 | | scheduled/d | [...] | | scheduled/d | n | | Long-Term | | | | ocumented | scheduled/d [...] | linked to | interventio | | Long-Term | | 20 | | scheduled/d | [...] | | scheduled/d | n | | Long-Term | | | | ocumented | scheduled/d [...] | linked to | interventio | | Long-Term | | 20 | | scheduled/d | [...] the patient | | diabetic | Goal: [facility] | Comple | | [...] not doing | | monitoring | Goal: [facility] | Comple | | [...]
--- OUTSIDE RECORDS SUMMARY | ~2019-11-29 | XMS | Encounter Summary ---
Demographics + + + | Address | [address] | | | [place] [address] | + + + | Home Phone | | + + + | Preferred Language | Unknown | + + + | Marital Status | | + + + | Zoroastrianism Affiliation | Unknown | + + + | Race | Unknown | + + + | Ethnic Group | Unknown | + + + Author + + + | Author | [facility] | | | and [place] | + + + | Organization | [facility] | | | and [place] | [...] Team Providers + +------+ + | Care Delivery Merchandiser Name | Role | Phone | + [...] [address] | [address] [facility] | (COUNT OR 30 DAY) | | | | [place], [place] | [facility] [place] [place] [id number] | | | | | [address] | [phone] | | | | | [phone] | | | +--------+ + + + [...] Level 3 Travel Health Notice: [place]: [place], [place], [place] ([facility] Area): [place], [place], [place], [place], [place], [place], [place] , [place], [place], [place], [place], [place], [place], [place], [place], [place], [place], [place], [place], [place], [place], [place], [place], [place], [place], [place], [place], [place], [facility] [place] and [place]: [place], [place], [place], [place], [place] Indicate positive screen if: Answer to any question 1-5 is yes or answer to question 6 indicates travel to a Level 3 anam tination. Consult with food and beverage operations manager prior to visit. S: Patient states [...] up. Discussed seated HEP as provided by FLAT SCREEN WORKER last visit. She is doing that several [...] | | 2019 | Visit | | FLAT SCREEN WORKER [address] | | | | | | [place] | | | | | | [address] | | +--------+ + + + + | 12/04/ | Home Care | Home Health Services | [facility] Valadez, | | | 2019 | Visit | | FLAT SCREEN WORKER [address] | | | | | | [place] | | | | | | [address] | | +--------+ + + + + | 12/04/ | Office | Sleep Medicine | Bre Vivas | | | 2019 | Visit | | XAVI Saldana [address] | | | | | | [address] | | | | | | [place] [address] | | | | | | [phone] | | | | | | | [...] | | 2019 | Visit | | FLAT SCREEN WORKER [address] | | | | | | [place] | | | | | | [address] | | +--------+ + + + + [...] | Appointment | Home Health Services | Heaml Sequeira PT | | 2019 | | | [address] [place] | | | | | | [place] [address] | | | | | | [phone] | | | | | | | [...] [place] | | | | | | [place] [address] | | | | | | [phone] | | | | | | | [...]
--- OUTSIDE RECORDS SUMMARY | ~2019-11-29 | XMS | Encounter Summary ---
Demographics + + + | Address | [address] | | | [place] [address] | + + + | Home Phone | | + + + | Preferred Language | Unknown | + + + | Marital Status | | + + + | Pentecostal Affiliation | Unknown | + + + | Race | Unknown | + + + | Ethnic Group | Unknown | + + + Author + + + | Author | [facility] | | | and Bentleyana | + + + | Organization | [facility] | | | and Bentleyana [...] Providers + +------+ + | Care Supervisor Of Officials Name | Role | Phone | + [...] | [address] | [address] | | | | | Acute | [place] | [place], | | | | | cystitis | [place], [place] | [place] | | | | | without | [address] | [address] | | | | | hematuria | Phone: | Phone: | | | | | Sepsis, due | [phone] | [phone] | | | | | to | Fax: | Fax: | | | | | unspecified | [phone] | [phone] | | | | | organism, | [...] | Acute | [address] [place] [address] | | | | | cystitis | [place], [place] | [place], | | | | | without | [address] | [place] [address] | | | | | hematuria | Phone: | Phone: | | | | | Sepsis, due | [phone] | [phone] | | | | | to | Fax: | Fax: | | | | | unspecified | [phone] | [phone] | | | | | organism, | | | | | | | unspecified | | | | | | | whether | | | | | | | acute organ | | | | | | | dysfunction | | | | | | | present | | | | | | | ([facility]) | | | +--------+ + + + [...] Services | Elevated | MD Daniel | [place] | | | Required | | troponin | [address] | [address] | | | | | Acute | [address] [place] | [place] | | | | | cystitis | [place], [place] | [place] | | | | | without | [address] | [address] | | | | | hematuria | Phone: | Phone: | | | | | Sepsis, due | [phone] | [phone] | | | | | to | Fax: | Fax: | | | | | unspecified | [phone] | [phone] | | | | | organism, | | | | | | | unspecified | | | | | | | whether | | | | | | | acute organ | | | | | | | dysfunction | | | | | | | present | | | | | | | ([facility]) | | | | | [...] + + | 10/11/ | Hospital | [facility] | Daniel Martínez MD | Elevated troponin; | | 2019 - | Encounter | MED CTR SUR[facility] | [address] | Acute cystitis | | | | [address] [place] | [place] | without hematuria; | | 10/15/ | | [place] [address] | [address] | Sepsis, due to | | 2019 | | [phone] | | unspecified | | | | | | organism, | | | | | | unspecified whether | | | | | | acute organ | | | | | | dysfunction present | | | | | | ([facility]) | +--------+ + + + + Social [...] Martínez MD - 10/16/2019 11:10 AM PDT [place] HOSPITALIST DISCHARGE SUMMARY Pt. Name/Age/: Norbert [...] aka: HYDRODIURIL losartan 50 mg tablet aka: [facility] COURSE: Please refer to the H&P for full details and the most recent rounding rounding (progress) n ote. In short Mrs Barrow a 58 y/omorbidly obese ladyw/pmhx of HTN,HDL,IDDM,MESHA, hypothyroi dism chronic pain syndrome on opioids with contract, vitamin D deficiency who presented to [facility] with dizziness, near syncopal episode. Evaluation [...] changes on EKG, I discussed this with paint mixer who recommended medical management, unfortunately she would [...] appointment, check in at 1:45PM. Contact information: [address] [place] [address] [phone]- [phone] Condition: Patient being discharged with condition improved. Diet: Heart healthy diabetic diet, low calorie Greater than 30 minutes were spent on discharge and coordination of post-hospital care. Electronically signed by: Daniel Martínez MD, 10/16/2019 11:10 AM PDT [facility] Portions of this chart may have been created with Serveron voice recognition software. Occasi onal wrong-word or [...] flavors available): 8 ounces per day ? Pitkin Fresh Yogurt (many flavors available): 6 ounces [...] Martínez MD - 10/15/2019 3:12 PM PDT [place] HOSPITALIST PROGRESS NOTE Patient: Norbert Mckay : 1960: Age: 58 y.o. MedRec: [id number] Admission date: 10/12/2019 Hospital day # : [...] levophed with holding Bps, stable transferred to [facility]. Labs improving, pending fur ther improvement, [...] opiates for back pain, on contract, taking Vienna Demanding meds upon arrival Continue home regimen [...] Procedure Component Value Units Date/Time Culture, MRSA [[id number]] Collected: 10/12/19 1838 Order Status: Completed Lab [...] this chart may have been created with Serveron voice recognition software. Occasi onal wrong-word or [...] therapy Creatinine CrCl (mL/min) Dose-current Dose-new 10/15/19 guard captain 2.90 33 600 mg q24hr 600 [...] M D - 10/14/2019 9:29 AM PDT [place] HOSPITALIST PROGRESS NOTE Patient: Norbert Mckay : 1960: Age: 58 y.o. MedRec: [id number] Admission date: 10/12/2019 Hospital day # : 2 Physician author: Daniel Martínez MD Today: 10/14/2019 Assessment and Hospital Course Mrs Mckay is a 58 y/o morbidly obese lady w/pmhx of HTN, HDL, IDDM, MESHA, hypothyroidism c hronic pain syndrome on opioids with contract, vitamin D deficiency who presented to [facility] with dizziness, near syncopal episode. Evaluation [...] opiates for back pain, on contract, taking Vienna Demanding meds upon arrival Continue home regimen [...] 5 mg Intravenous Q4H PRN Ari capone, Nurse Orthopedic metoclopramide (REGLAN) tablet 5 mg 5 mg [...] Procedure Component Value Units Date/Time Culture, MRSA [[id number]] Collected: 10/12/19 1838 Order Status: Completed Lab Status: Final result Updated: 10/13/19 1125 Specimen: Tissue from Nares Culture Negative for MRSA by chromogenic agar method. 4+ Coagulase positive Staphylococcus Radiology results: US renal pending results Daniel Martínez MD Portions of this chart may have been created with Serveron voice recognition software. Occasi onal wrong-word or [...] Owens MD - 10/13/2019 9:31 AM PDT [facility] [place] HOSPITAL[place] PROGRESS NOTE Patient: Norbert Mckay : 1960: Age: 58 y.o. MedRec: [id number] Admission date: 10/12/2019 Hospital day # : 1 Physician author: Daniel Martínez MD Today: 10/13/2019 Assessment and Hospital Course Mrs Mckay is a 58 y/o morbidly obese lady w/pmhx of HTN, HDL, IDDM, MESHA, hypothyroidism c hronic pain syndrome on opioids with contract, vitamin D deficiency who presented to the [facility] with dizziness, near syncopal episode. Evaluation [...] opiates for back pain, on contract, taking Vienna Demanding meds upon arrival Continue home regimen [...] 5 mg Intravenous Q4H PRN Ari Stacy [facility], Nurse Orthopedic metoclopramide (REGLAN) tablet 5 mg 5 mg [...] Procedure Component Value Units Date/Time Culture, MRSA [[id number]] Collected: 10/12/19 183 Order Status: Sent Lab Status: In process Updated: 10/12/191904 Specimen: Tissue from Nares Radiology results: US renal pending results Daniel Martínez MD Portions of this chart may have been created with Serveron voice recognition software. Occasi onal wrong-word or [...] Creatinine CrCl (mL/min) Dose-current Dose-new 10/12/19 1 (PRIMARY SUBSTANCE ABUSE COUNSELOR) 3.30 29 600 mg q6hr 600 mg q24hr 10/13/19 2 3.54 27 600 mg q24h (same) Diclofenac ER: Date Day of therapy Creatinine CrCl (mL/min) Dose-current Dose-new 10/13/19 2 (PRIMARY SUBSTANCE ABUSE COUNSELOR) 3.54 27 75 mg BID 50 mg [...] PharmSaúl 10/13/2019 6:35 AM PDT Ari Bruner, Nurse Orthopedic - 10/13/2019 12:55 AM PDTFormatting of this [...] ADJUSTMENT PROTOCOL Electronically signed by: Ari Rangel, Nurse Orthopedic 10/13/2019 12:54 AM PDT Ari Cruz, Nurse Orthopedic - 10/13/2019 12:51 AM PDT RENAL DOSE [...] ADJUSTMENT PROTOCOL Electronically signed by: Ari Rangel, Nurse Orthopedic 10/13/2019 12:48 AM PDT doc umented in this encounter H&P Notes Daniel Martínez MD - 10/12/2019 6:52 PM PDT [facility] [place] HOSPITAL[place] HISTORY & PHYSICAL Patient: Norbert Mckay : 1960: Age: 58 y.o. MedRec: [id number] Admission date: 10/12/2019 Hospital day # : 0 Physician author: Daniel Martínez MD Today: 10/12/2019 CHIEF COMPLAINT: Dizziness, near syncope, poor oral intake HISTORY OF PRESENT ILLNESS: Mrs Mckay is a 58 y/o morbidly obese lady w/pmhx of HTN, HDL, IDDM, MESHA, hypothyroidism c hronic pain syndrome on opioids with contract, vitamin D deficiency who presented to [facility] with dizziness, near syncopal episode. Patient [...] fungal infection Neuro: Face symmetric, tongue midline, life advisor equal, no pronator drift, motor and sensory [...] service on side, despite no need for paint mixer at this time any way. She was [...] opiates for back pain, on contract,, taking Vienna Demanding meds upon arrival Continue home regimen if BP allows Monitor symptoms DVT prophylaxis: SCD, heparin SQ CODE STATUS: Full code Disposition: Admit to inpatient care CMS Documentation I expect this patient will be hospitalized for greater than 2 midnights and expect the post -hospital plan to be discharged to home with . Electronically signed by: Daniel Martínez MD 10/12/2019 6:52 PM PDT [facility] Portions of this chart may have been created with Serveron voice recognition software. Occasi onal wrong-word or [...] is encouraged to ambulate into hallway w [place] nursing staff. Recommended toileting with nursing: Day [...] STG Status continued at 10/15/2019 1109 STG Hettinger Level stand by assist at 10/13/2019 1440 LB Dressing Goal Most Recent Value STG Status new at 10/15/2019 1109 STG Hettinger Level contact guard assist at 10/15/2019 1109 Toileting Goal Most Recent Value STG Status new at 10/15/2019 1109 STG Hettinger Level minimum assist (75% patient effort) at 10/15/2019 1109 Toilet Transfer Goal Most Recent Value STG Status progressing at 10/15/2019 1109 STG Hettinger Level moderate assist (50% patient effort) at [...] OT, 10/16/2019 1:27 PM PDT lan of [facility] - Wagner Gonzalez RN - 10/16/2019 1:14 PM PDTDischarge home when family arrivesElectronically sig ceferino by Wagner Amaral RN at 10/16/2019 1:15 PM PDTPlan of Padilla Rodriguez RRT - 10/16/2019 11:20 AM PDTRobin was 90% on RA with clear BS and unlabored RR 16. lan of [facility] Joan Flowers MSW - 10/15/2019 5:03 PM PDT Problem: Discharge Planning Goal: Patient's discharge needs will be identified in a timely manner Outcome: Ongoing, progressing Goal: Patient will be discharged in a safe manner Outcome: Ongoing, progressing This gearcase assembler spoke with Norbert to follow up on discharge plans. Norbert states that her p evelyn is to go home with her . She also has a sister who is a SHEAR OPERATOR who will be helping h er at home. She has another sister as well who is involved and will be providing meals. They all live in [place] [address] [facility]. We dicussed a SNF for rehab prior to going home and she strongly declined. She feels she wi ll have the support she needs at home with her family. We dicussed a follow up appointment with her PCP. She is seen at the [facility]. She had Denis Quempts but he transferred to the [facility] so she sees MARTHA Mcmahan. S he states that she trusted Denis and has not had much va in [place]. She doesn't feel that [facility] can meet her needs however, she would like to follow up with her from here and then look at other options for care. She said she and her are thinking about re-establish ing with Denis and traveling to [place] for her apts--she and her are further discussin g this. This CM called [facility] and spoke with the patient home care companion, Vivian Askew, who scheduled Norbert for October 21 at 1:45PM check in time. Vivian would like the CM to fax the d ischarge summary that includes any follow up needs to them. . Norbert states that she would be open to have Community Health RN visits from the [facility] health nurse. This CM was transferred to Gi Carbajal at [facility] and explaine saúl over her voicemail the follow up for this patient. Asked her to call the CM tomorrow with any further questions. Norbert said her will be transporting her home in her sisters car which is easier for her to get in and out of. She uses [facility] pharmacy. PLAN: Home with , PCP follow up appt made, would benefit from community health RN wiliam sits. CM to fax dc summary upon dc. Electronically signed by: TIFFANIE Schneider 10/15/19 5:11 PM PDT lan of [facility] - King Yu Mercy, PT - 10/15/2019 [...] Therapy Discharge Recommendations are: Recommended discharge disposition: [facility] facility Post discharge physical therapy recommendation: ongoing [...] sequencing/management of FWW, fatigues quickly Level of Hettinger: contact guard assist, verbal cues required Assistive Device: 2 wheeled walker (FWW), bariatric Distance (feet): 5 x 2 Gait Deviations: chata decreased, double stance time increased, limb motion velocity decr eased, step length decreased, gmf-cy-hrkwm clearance decreased, weight-shifting ability decr eased Safety [...] standing tolerance (1-2 min) Bed-Chair, Level of Hettinger: contact guard assist, set up required, verbal cues requir ed, tactile cues required Chair-Bed, Level of Hettinger: contact guard assist, set up required, verbal cues requir ed, tactile cues required Gye-Oypgp-Gmf, Assistive Device: 2 wheeled walker (FWW), bariatric Sit-Stand, Level of Hettinger: contact guard assist, set up required, verbal cues requir ed, tactile cues required Stand-Sit, Level of Hettinger: contact guard assist, set up required, verbal cues requir ed, tactile cues required Uir-Sbrdl-Ame, Assistive Device: 2 wheeled walker (FWW), bariatric Toilet, Level of Hettinger: (see OT note for details of toilet [...] rails, HOB elevated Roll Left, Level of Hettinger: contact guard assist, set up required, verbal cues requir ed, tactile cues required Roll Right, Level of Hettinger: not tested Scoot/Bridge, Level of Hettinger: contact guard assist, set up required, verbal cues req uired, tactile cues required Sidelying to Sit, Level of Hettinger: minimal assist (75% patient effort), set up requir ed, verbal cues required, tactile cues required Sit to Sidelying, Level of Hettinger: not tested(pt up in chair at end [...] STG Status revised at 10/15/2019 1110 STG Hettinger Level modified independent at 10/15/2019 1110 STG Assistive Device bed rails at 10/15/2019 1110 Ukwytkesy-Lgt-Rhjbcjbjx Goal Most Recent Value STG Status revised at 10/15/2019 1110 STG Hettinger Level minimum assist (75% patient effort) at 10/15/2019 1110 STG Assistive Device bed rails at 10/15/2019 1110 Hik-Rbmaf-Ber Goal Most Recent Value STG Status revised at 10/15/2019 1110 STG Hettinger Level modified independent at 10/15/2019 1110 STG Assistive Device 2 wheeled walker (FWW), bariatric at 10/15/2019 1110 Gait Goal Most Recent Value STG Status revised at 10/15/2019 1110 STG Hettinger Level modified independent at 10/15/2019 1110 STG [...] Therapy Discharge Recommendations are: Recommended discharge disposition: [facility] facility Post discharge occupational therapy recommendation: ongoing [...] eased strength and endurance Toileting, Level of Hettinger: 2 person assist required, maximal assist (25% [...] Assist w/ FWW mgmt. Toilet, Level of Hettinger: 1 person + 1 person to manage [...] STG Status continued at 10/15/2019 1109 STG Hettinger Level stand by assist at 10/13/2019 1440 LB Dressing Goal Most Recent Value STG Status new at 10/15/2019 1109 STG Hettinger Level contact guard assist at 10/15/2019 1109 Toileting Goal Most Recent Value STG Status new at 10/15/2019 1109 STG Hettinger Level minimum assist (75% patient effort) at 10/15/2019 1109 Toilet Transfer Goal Most Recent Value STG Status progressing at 10/15/2019 1109 STG Hettinger Level moderate assist (50% patient effort) at [...] 10/15/2019 4:30 AM PDTPt transferred to room [facility] via bed. A&Ox4. Using call light appropriately. Reports left knee and lower back pain, requests Vienna as needed. LSC dim to bases. 1-2L O2 via N/C through noc. Orozco in place-clear yellow urine. LBM 10/13. N[place]OLASA midline CDI. SL x 2 to bilat forearms. Rash continues to breasts and pannus-pt declined tx at HS. Requires 3 assist with skylift for transfers. lan of Arcelia Ro Thomas RN - 10/14/2019 7:20 PM PDTA&Ox4. VSS on 1L O2. Vienna effective for chronic L knee/low back pain. [...] supportive. lan of Care - Hollis Abdul, MASSAGE COORDINATOR - 10/14/2019 7:10 PM PDTO2 weaned off. SpO2: 97 % on 1liters/minute nasal cannula(R educed to Room air.) lan of [facility] Clemencia mcclellan OT - 10/14/2019 11:52 [...] 2 days and as needed. lan of [facility] Julita ibrahim OT - 10/14/2019 11:14 [...] for tomorrow if medically stable- transfer to [facility]. RN cleared patient for participation in [...] Therapy Discharge Recommendations are: Recommended discharge disposition: [facility] facility Post discharge occupational therapy recommendation: ongoing [...] own set-up as able. Grooming, Level of Hettinger: set up required, stand by assist Grooming [...] STG Status continued at 10/14/2019 1114 STG Hettinger Level stand by assist at 10/13/2019 1440 Toilet Transfer Goal Most Recent Value STG Status continued at 10/14/2019 1114 STG Hettinger Level moderate assist (50% patient effort) at [...] mobilize at level safe for home discharge, [facility] indicating significa nt impairment with basic [...] spouse Provides Primary Care For: pet(s)(2 dogs- Jordanian Coley, mixed breed Pitbull, Lab. ) Role Relationships Comment: Spouse present and supportive, works [employer]. 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 Living Environment/Accessibility: Lives With: spouse Living Arrangements: house Home Accessibility: ramps present at home, grab bars present (bathtub) Number of Stairs to Enter Home: 0(w/c ramp) Number of Stairs Within Home: 0 Living Environment Comment: Tub w/ tub transfer bench Patient/Family s Goals: return home Rehabilitation potential: fair, will monitor progress closely Physical Therapy Discharge Recommendations are: Recommended discharge disposition: [facility] facility Post discharge physical therapy recommendation: ongoing [...] (see comments)(overhead lift) Roll Left, Level of Hettinger: minimal assist (75% patient effort), 2 person assist requ ired, set up required, verbal cues required, tactile cues required Roll Right, Level of Hettinger: moderate assist (50% patient effort), 2 person assist re quired, set up required, verbal cues required, tactile cues required Scoot/Bridge, Level of Hettinger: maximal assist (25% patient effort), 2 person [...] R LE Strength: poor, grossly 3-/5 throughout [facility] BASIC MOBILITY Turning from your back [...] Mobility Six Click AM-PAC: 6 Completed the [facility] Activity Measure for Post Acute Care [...] STG Status new at 10/14/2019 1051 STG Hettinger Level stand by assist at 10/14/2019 1051 STG Assistive Device bed rails at 10/14/2019 1051 Wwisttkzi-Tbv-Jyyxsnsjn Goal Most Recent Value STG Status new at 10/14/2019 1051 STG Hettinger Level minimum assist (75% patient effort) at 10/14/2019 1051 STG Assistive Device bed rails, HOB elevated at 10/14/2019 1051 Jox-Hxrpq-Vxh Goal Most Recent Value STG Status new at 10/14/2019 1051 STG Hettinger Level minimum assist (75% patient effort) at 10/14/2019 1051 STG Assistive Device 2 wheeled walker (FWW), bariatric at 10/14/2019 1051 Gait Goal Most Recent Value STG Status new at 10/14/2019 1051 STG Hettinger Level minimum assist (75% patient effort) at [...] 10-325 given. Most comfortable on L side. [id number], titrating levo, currently at 4 mcg/min. Pt [...] when medically stable. Electronically signed by: Yu Camejo PT, 10/13/2019 2:46 PM PDT lan of [...] spouse Provides Primary Care For: pet(s)(2 dogs- Jordanian Coley, mixed breed Pitbull, Lab. ) Role Relationships Comment: Spouse present and supportive, works for[employer]. 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 Living Environment/Accessibility: Lives With: spouse Living Arrangements: [...] STG Status new at 10/13/2019 1440 STG Hettinger Level stand by assist at 10/13/2019 1440 Toilet Transfer Goal Most Recent Value STG Status new at 10/13/2019 1440 STG Hettinger Level moderate assist (50% patient effort) at [...] Harshil in the room. They live in [place], [place] with their 2 dogs in a [...] - 10/12/2019 7:00 PM PDTRobin arrived from [facility]. O2 now at 4L NC. Le vophed [...] | | 2019 | Visit | | PRIMARY SUBSTANCE ABUSE COUNSELOR [address] | | | | | | [facility] | | | | | | [address] | | +--------+ + + + + | 12/04/ | Home Care | Home Health Services | [facility] [facility], | | | 2019 | Visit | | PRIMARY SUBSTANCE ABUSE COUNSELOR [address] | | | | | | [place] | | | | | | [address] | | +--------+ + + + + | 12/04/ | Office | Sleep Medicine | Bre Vivas | | | 2019 | Visit | | XAVI Saldana [address] | | | | | [address] | | | | | | [place] [address] | | | | | | [phone] | | | | | | | [...] | | 2019 | Visit | | PRIMARY SUBSTANCE ABUSE COUNSELOR [address] | | | | | | [address] [place] | | | | | | [address] | | +--------+ + + + + [...] [place] | | | | | | [place] [address] | | | | | | [phone] | | | | | | | [...] Hospital | | | | | | [place] [address] | | | | | | [phone] | | | | | | | [...] +--------+ + + | AMB Referral to [facility] | Outpatient | Routin | Elevated troponin [...] present | | | | | | ([facility]) | | + + +--------+ [...] present | | | | | | ([facility]) | | + + +--------+ [...] | | | POC | | | [facility] | | | | | | [...] | + + + + + | [facility] | [address] | [place] | [phone] | | [facility] | | [address] | | | - LABORATORY | | [...] + | [facility] | [address] | [place] | [phone] | | [facility] | | [address] | | | - LABORATORY | | [...] + | [facility] | [address] | [place] | [phone] | | [facility] | | [address] | | | - LABORATORY | | [...] | nRBC | | K/uL | [facility] | | | | | [...] [address] | [place] | [phone] | | [facility] | | [address] | | | - LABORATORY | | [...] (H) | 9 - 23 mg/dL | [facility] | | | | | | [facility] | | | | | | MEDICAL | | | | | | CENTER - | | | | | | LABORATORY | | + + + + + + | Creatinine | 2.47 (H) | 0.55 - 1.02 | [facility] | | | | | mg/dL | [facility] | | | | | | MEDICAL | | | | | | CENTER - | | | | | | LABORATORY | | + + + + + + | eGFR, | 20 (L)Comment: | >=60 | [facility] | | | non- | GLOMERULAR FILTRATION | mL/min/1.73m2 | [facility] | | | Japanese | RATE,ESTIMATED | | MEDICAL | | | | mL/min/1.15a8Jljx than | | CENTER - | | [...] + | [facility] | [address] | [place] | [phone] | | [facility] | | [address] | | | - LABORATORY | | [...] [address] | [place] | [phone] | | [facility] | | [address] | | | - LABORATORY | | [...] [address] | [place] | [phone] | | [facility] | | [address] | | | - LABORATORY | | [...] + | [address] | [address] | [place] | [phone] | | [facility] | | [address] | | | - LABORATORY | | [...] [address] | [place] | [phone] | | [facility] | | [address] | | | - LABORATORY | | [...] [address] | [place] | [phone] | | [facility] | | [address] | | | - LABORATORY | | [...] + | [facility] | [address] | [place] | [phone] | | [facility] | | [address] | | | - LABORATORY | | [...] mL/min/1.73m2 | [facility] | | | [place] | RATE,ESTIMATED | | MEDICAL | | | | mL/min/1.25q3Kclo than | | CENTER - | | [...] [address] | [place] | [phone] | | [facility] | | [address] | | | - LABORATORY | | [...] [address] | [place] | [phone] | | [facility] | | [address] | | | - LABORATORY | | [...] 3.05 (H) | 0.55 - 1.02 | [facility] | | | | | mg/dL | [facility] | | | | | | MEDICAL | | | | | | CENTER - | | | | | | LABORATORY | | + + + + + + | eGFR, | 16 (L)Comment: | >=60 | [facility] | | | non- | GLOMERULAR FILTRATION | mL/min/1.73m2 | [facility] | | | Japanese | RATE,ESTIMATED | | MEDICAL | | | | mL/min/1.40i2Mpku than | | CENTER - | | [...] [address] | [place] | [phone] | | [facility] | | [address] | | | - LABORATORY | | [...] ST. | [address] | [place], [place] | [phone] | | [facility] | | [address] | | | - LABORATORY | | [...] [address] | [place] | [phone] | | [facility] | | [address] | | | - LABORATORY | | [...] | | | | | | n [place] | | | | | + +--------+ [...] [address] | [place] | [phone] | | [facility] | | [address] | | | - LABORATORY | | [...] + | [facility] [facility] | [address] | [place] | [phone] | | [facility] | | [address] | | | - LABORATORY | | [...] [address] | [place] | [phone] | | [facility] | | [address] | | | - LABORATORY | | [...] [address] | [place] | [phone] | | [facility] | | [address] | | | - LABORATORY | | [...] + | [facility] | [address] | [place] | [phone] | | [facility] | | [address] | | | - LABORATORY | | [...] mL/min/1.73m2 | [facility] | | | Japanese | RATE,ESTIMATED | | MEDICAL | | | | mL/min/1.16n5Lonl than | | CENTER - | | [...] ST. | [address] | [place] | [phone] | | [facility] | | [address] | | | - LABORATORY | | [...] | | | | | | [employer] | | | | | [...] [address] | [place] | [phone] | | [facility] | | [address] | | | - LABORATORY | | [...] + | [facility] | [address] | [place] | [phone] | | [facility] | | [address] | | | - LABORATORY | | [...] mL/min/1.73m2 | [facility] | | | Japanese | RATE,ESTIMATED | | MEDICAL | | | | mL/min/1.15b6Copx than | | CENTER - | | [...] [address] | [place] | [phone] | | [facility] | | [address] | | | - LABORATORY | | [...] | | | | | | [employer] | | | | | [...] [address] | [place] | [phone] | | [facility] | | [address] | | | - LABORATORY | | [...] + | [facility] | [address] | [place] | [phone] | | [facility] | | [address] | | | - LABORATORY | | [...] | | Consistent with previous | | [facility] | | | | results. | | [...] | | | | | | [employer] | | | | | [...] + | [facility] | [address] | [place], [place] | [phone] | | [facility] | | [address] | | | - LABORATORY | | [...] [address] | [place] | [phone] | | [facility] | | [address] | | | - LABORATORY | | [...] [address] | [place] | [phone] | | [facility] | | [address] | | | - LABORATORY | | [...] (H) | 9 - 23 mg/dL | [facility] | | | | | | [facility] | | | | | | MEDICAL | | | | | | CENTER - | | | | | | LABORATORY | | + + + + + + | Creatinine | 3.55 (H) | 0.55 - 1.02 | [facility] | | | | | mg/dL | [facility] | | | | | | MEDICAL | | | | | | CENTER - | | | | | | LABORATORY | | + + + + + + | eGFR, | 13 (L)Comment: | >=60 | [facility] | | | non- | GLOMERULAR FILTRATION | mL/min/1.73m2 | [facility] | | | Japanese | RATE,ESTIMATED | | MEDICAL | | | | mL/min/1.08i5Bujo than | | CENTER - | | [...] + | [facility] | [address] | [place] | [phone] | | [facility] | | [address] | | | - LABORATORY | | [...] + | [facility] | [address] | [place], [place] | [phone] | | [facility] | | [address] | | | - LABORATORY | | [...] [address] | [place] | [phone] | | [facility] | | [address] | | | - LABORATORY | | [...] | | | | NIKKO PICKETT MD ([id number]) | | | | | | on [...] [address] | [place] | [phone] | | [facility] | | [address] | | | - LABORATORY | | [...] + | [facility] | [address] | [place] | [phone] | | [facility] | | [address] | | | - LABORATORY | | [...] | | | | | | [employer] | | | | | [...] ST. | [address] | [place], [place] | [phone] | | [facility] | | [address] | | | - LABORATORY | | [...] [address] | [place] | [phone] | | [facility] | | [address] | | | - LABORATORY | | [...] ST. | [address] | [place], [place] | [phone] | | [facility] | | [address] | | | - LABORATORY | | [...] [address] | [place] | [phone] | | [facility] | | [address] | | | - LABORATORY | | [...] + | [facility] | [address] | [place] | [phone] | | [facility] | | [address] | | | - LABORATORY | | [...] mL/min/1.73m2 | [facility] | | | Japanese | RATE,ESTIMATED | | MEDICAL | | | | mL/min/1.73t5Ubbn than | | CENTER - | | [...] [address] | [place] | [phone] | | [facility] | | [address] | | | - LABORATORY | | [...] | | | | | | [employer] | | | | | [...] + | [facility] | [address] | [place] | [phone] | | [facility] | | [address] | | | - LABORATORY | | [...] + | [facility] | [address] | [place] | [phone] | | [facility] | | [address] | | | - LABORATORY | | [...] [address] | [place] | [phone] | | [facility] | | [address] | | | - LABORATORY | | [...] + | [facility] | [address] | [place] | [phone] | | [facility] | | [address] | | | - LABORATORY | | [...] + | [facility] | [address] | [place] | [phone] | | [facility] | | [address] | | | - LABORATORY | | [...] [facility] | | | Japanese | RATE,ESTIMATED | | MEDICAL | | | | mL/min/1.35f0Ftcs than | | CENTER - | | [...] [address] | [place] | [phone] | | [facility] | | [address] | | | - LABORATORY | | [...] [address] | [place] | [phone] | | [facility] | | [address] | | | - LABORATORY | | [...] [address] | [place] | [phone] | | [facility] | | [address] | | | - LABORATORY | | [...] | | | | | | | [id number] Use NIGHT DOSE for | | | | | | | doses scheduled: HS, | | | | | | | Nighttime [id number] If the BG is | | | [...]
--- OUTSIDE RECORDS SUMMARY | ~2019-11-29 | XMS | Encounter Summary ---
Demographics + + + | Address | [address] | | | [place] [address] | + + + | Home Phone [...] + + | Author | [facility] | | | and [place] | + + + | Organization | [facility] | | | and [...] [facility] | Triston Holley | TRADE MANAGER SECONDARY EVAL | | 2019 | Visit | [facility] [address] | S, MERCHANDISE DIRECTOR | | | | | ST [place], [place] | [phone] | | | | | [address] | | | | | | [phone] | | | +--------+ + + + [...] Miscellaneous Notes Home Health - Triston Holley, [facility] - 11/15/2019 2:00 PM PDTAgatha is a 59 year old Na tive Niue[place] lady who is living at home with her . Her works full t [employer] for the [employer]. He has been working from home since [...] work er will, also, check with the [employer] [facility] to find out what kind of support and counell ing is available for [facility] members. This social media intern will try to make at [facility] to provide information [...] any question 1-6 is yes. Consult with government sales manager prior to visit.Electronically s igned by DA Ahuja at 11/20/2019 3:37 PM PDTdocumented in this encounter Plan of Treatment +--------+ + + + + | Date | Type | Specialty | Care Team | Description | +--------+ + + + + | 12/02/ | Home Care | Home Health Services | [facility], | | 2019 | Visit | | [facility] [address] | | | | | | [address] [place], [place] | | | | | | [address] | | +--------+ + + + + | 12/04/ | Home Care | Home Health Services | [facility], | | | 2019 | Visit | | [facility] [address] | | | | | | [place] | | | | | | [address] | | +--------+ + + + + | 12/04/ | Office | Sleep Medicine | [facility] | | | 2019 | Visit | | [facility] [address] | | | | [address] [place] | | | | | | [place] [address] | | | | | | [phone] | | | | | | | [...] | | 2019 | Visit | | [facility] [address] | | | | | | [place] | | | | | | [address] | | +--------+ + + + + [...] | | | | | | [place] [address] | | | | | | [phone] | | | | | | | [...] | | | | | [place] [address] | | | | | | [phone] | | | | | | | | +--------+ + + + + documented as of this encounter Visit Diagnoses Not on filedocumented in this encounter"
[~2019-11-29 16:37] MED LIST changes: -GLUCOPHAGE XR750 MG PO; +GLUCOPHAGE500 MG PO
--- OUTSIDE RECORDS SUMMARY | 2019-11-29 16:40 | XMS ---
PreManage Notification: RONY CORREIA Security Wet Roller Events No recent Security Events currently on file CRITERIA MET - [facility] CARE PROVIDERS Name Unknown Clinic/Center 10/14/2019-Current PHONE: [phone] Jasbir has no Care Guidelines for this patient. Care History Medical/Surgical 10/14/2019 [facility] - PATIENT IS A [facility] ELIGIBLE, \T\middot;\T\nbsp; PLEASE REFER PATIENT TO [facility] FOR NON EMERGENT MEDICAL NEEDS. \T\middot;\T\nbsp; [facility] CAN SEE PATIENTS SAME DAY FOR APTS IF PATIENT CALLS FIRST THING IN THE MORNING. E.D. VISIT COUNT (12 MO.) [address] [place] [address] TOTAL 2 NOTE: Visits indicate total known visits. ED/UCC VISIT TRACKING (12 MO.) 11/29/2019 16:38 [facility] [place] TYPE: Emergency COMPLAINT: - FALL 10/12/2019 12:44 [facility] [place] TYPE: Emergency COMPLAINT: - CHEST PAIN DIAGNOSES: - Abnormal coagulation profile - Type 2 diabetes mellitus with diabetic neuropathy, unspecifie - intermission coordinator (current) use of insulin - Other terminal superintendent (current) drug therapy - Hypotension, unspecified - Dizziness and giddiness INPATIENT VISIT TRACKING (12 MO.) 10/12/2019 17:57 [facility] Ajay PANTOJA TYPE: Surgical Services DIAGNOSES: - Sepsis, unspecified organism - Sepsis, elevated troponin - Other specified abnormal findings of blood chemistry - Acute cystitis without hematuria [email or web address]
[2019-11-29] MEDS ORDERED: LO-DOSE ASPIRIN81 M1 PO (17:15)
[2019-11-29] MEDS ORDERED: CARVEDILOL3.125 MG PO (17:16)
[2019-11-29] MEDS ORDERED: FERROUS FUMARA324 MG PO (17:17)
[2019-11-29] MEDS ORDERED: LIDODERM1 EACH TOP (17:20)
[2019-11-29] MEDS ORDERED: ANTI-FUNGAL POW71 GM TOP (17:24)
--- NOTE | 2019-11-29 19:43 | NUR ---
CALL TO KARI AT [facility]. BARIATRIC ORDERED. CONFIRMATION # [id number]. METAL CUT OFF SAW OPERATOR NOTIFIED.
--- NOTE | 2019-11-29 20:50 | NUR ---
PT ARRIVED TO THE FLOOR AT 2013. 4 PERSON ASSIST TO GET SLING UNDER PATIENT AND CHOLO HER TO BED. BARAIATRIC BED WAS ORDERED BY WEIGHER [employer]OY BUT NOT HERE YET. PT IS DROWSY BUT ARROUSABLE AND IS ON 3 LNC. VS TAKEN AND ENTERED. PT IS POSITIONED COMFORTABLY IN BED. IS IN ROOM WITH PT AND NOW ANSWERING ADMISSION QUESTIONS.
--- NOTE | 2019-11-29 21:21 | NUR ---
COMPLETED ASSESSMENT HX WITH HELP OF PT'S BEFORE HE LEAVES. PT REPORTED PAIN AT 9/10. ADMINISTERED 1 NORCO PT THEN STATED DOSE AT HOME IS HIGHER AND THAT WILL NOT CONTROLL THE PAIN. PULLED THE 2ND NORCO PILL PER ORDER AND ADMINISTERED THAT WELL. PT HAS FRESH ICEWATER AT BEDSIDE AND DENIES FURTHER NEEDS. CALL LIGHT IS CLOSE.
--- NOTE | 2019-11-29 21:31 | NUR ---
PT CALLED WANTING MORE PILLOWS. UPON ENTERING THE ROOM SHE WANTED THE PILLOWS UNDER THE LEFT SIDE OF HER BODY MOVED TO UNDER HER RIGHT SIDE. SHE STATES SHE IS NOW COMFORTABLE AND DENIES FURTHER NEEDS. CALL LIGHT IS CLOSE.
--- NOTE | 2019-11-29 23:06 | NUR ---
ASSESSMENT, VS AND I&O COMPLETED. CBG 202, MED PROVIDED. SCHEDULED MEDS PROVIDED. IV FLUSHED, WNL. AREA UNDER LEFT PANNUS RED, CLEANED AND CLOTH PLACED MOISTURE BARRIER. LLE RED, PT DENIES EDEMA, PAINFUL, WARM. BLE EDEMA 1+. DUKES WNL. PAIN 4/10 IN LLE, PT REPOSITIONED. LUNGS CLEAR IN UPPER LOBES AND DIMINISHED IN LOWER LOBES. BOWEL TONES ACTIVE. CMS INTACT X4 EXTREMITIES. NC @ 2 L, HR SR @ 93. NO OTHER NEEDS AT THIS TIME. CALL LIGHT IN REACH.
--- NOTE | 2019-11-30 01:48 | NUR ---
ASSESSMENT, VS AND I&O COMPLETED. PT STATES SHE HAS PAIN 4/10 IN LLE WITH MOVEMENT THEN FALLS BACK TO SLEEP. POWDER PLACED UNDER PANNUS PER ORDER. NO CHANGES TO REDNESS IN LLE. BLE EDEMA 1+. IV WNL, IV FLUIDS INFUSING PER ORDER. CMS INTACT. NO OTHER NEEDS AT THIS TIME. CALL LIGHT IN REACH.
--- NOTE | 2019-11-30 02:21 | NUR ---
vitals and i&os done and charted. bedside table and call light in reach.
--- NOTE | 2019-11-30 03:45 | NUR ---
PT RESTING IN BED, EYES CLOSED. RR EVEN, UNLABORED. HR SR @ 77. NC @ 2L. IV FLUIDS INFUSING PER ORDER. CALL LIGHT IN REACH.
--- NOTE | 2019-11-30 05:54 | NUR ---
SCHEDULED MEDS PROVIDED. IV WNL. VS AND I&O COMPLETED. HR SR @ 76. NO OTHER NEEDS AT THIS TIME. CALL LIGHT IN REACH.
--- NOTE | 2019-11-30 05:57 | NUR ---
VITALS AND I&OS DONE AND CHARTED. BEDSIDE TABLE AND CALL LIGHT IN REACH. GARBAGES EMPTIED. PT NEEDS NOTHING AT THIS TIME.
--- NOTE | 2019-11-30 08:02 | NUR ---
REPORT RECEIVED. PT IN BED WIT H EYES CLOSED. RESIRATIONS EQUAL AND NONLABORED. 2L NC IN [place]. FLUIDS AND ABX INFUSING WNL. CALL LIGHT IN REACH.
--- NOTE | 2019-11-30 10:00 | NUR ---
ASSESSMENT COMPLETED. PT DROWSY AND DOES AWAKE TO VERBALSTIMULI TO ANSWER QUESTIONS. IMMEDIATELY FALLS BACKTO SLEEP. NO CONFUSSION PRESENT. LUNGS ARE COMPLETLY DIM. 2L NC IN PLACE, SATURATIONS AROUND 97%. PT APPEARS EDEMETOUS THROUGHOUT WHOLE BODY, WITH 2 AND 3+ EDEMA, 1+ DEPENDENT EDEMA TOLEFT ABDOMEN. REDNESS ON SLADE THIGH PRESENT WITH SOEM WARMTH. VITAL SIGNS STABLE. AFEBRILE.
--- NOTE | 2019-11-30 11:22 | NUR ---
3PA HOYERED PATIENT ONTO BARIATRIC BED. IN ROOM, LUKE FATIMA IN TO START NEW IV. CALLIGHT IN REACH
--- NOTE | 2019-11-30 13:00 | NUR ---
PT REPORTING LOWER BACK PAIN. PRN PAIN MEDICAITONS GIVEN.
--- NOTE | 2019-11-30 13:07 | EKG ---
[facility] [address] [place] [address] Signed Sinus tachycardia Right bundle branch block Abnormal ECG When compared with ECG of 12-OCT-2019 14:12, Borderline criteria for Inferior infarct are no longer present Nonspecific T wave abnormality has replaced inverted T waves in Inferior leads Confirmed by THI MURRAY MD ([id number]) on 11/30/2019 1:07:20 PM Electronically Signed By: THI MURRAY MD 11/30/19 1307 PATIENT NAME: RONY CORREIA Electrocardiogram DATE OF : 64 PHYSICIAN: THI MURRAY MD REPORT #: [id number] REPORT IS CONFIDENTIAL AND NOT TO BE RELEASED WITHOUT AUTHORIZATION
--- NOTE | 2019-11-30 13:25 | NUR ---
lab called with critical value of positive blood cultures. dr mederos notified. no new orders.
--- NOTE | 2019-11-30 13:46 | NUR ---
VITALS CHARTED, DUKES EMPTIED. PATIENT STARTED EATING LUNCH BUT QUICKLY FELL BACK TO SLEEP AFTER COUPLE BITES. FALLS ASLEEP MID SENTENCE. WIMPERS IN PAIN NOW AND THEN, BUT DENIES ANY OTHER NEEDS. CALL LITHT WITHIN REACH
[2019-11-30] MEDS ORDERED: BIOFREEZE118 ML TOP (14:22)
--- NOTE | 2019-11-30 14:23 | NUR ---
MED REC COMPLETE
--- NOTE | 2019-11-30 14:27 | NUR ---
PATSY BUTLER TO BEDSIDE TO START NEW IV SITE.
--- NOTE | 2019-11-30 15:18 | NUR ---
MIDLINE INSERTION ATTEMPT: EVALUATED PATIENT FOR POTENTIAL MIDLINE PLACEMENT. PATIENT'S VEINS PER SITE RITE U/S WERE VERY SMALL, AND NOT GOOD CANDIDATES AT THIS TIME FOR A PICC LINE. MIDLINE 10 CM 18 G WAS ATTEMPTED IN PATIENT'S RIGHT CEPHALIC VEIN. UNFORTUNATELY, DURING THE PROCESS, THE TOURNIQUET SLIPPED OFF AND THE VEIN SIZE BECAME SMALLER AND HARDER TO ACCESS. THE SITE WAS ABANDONED AND ULTIMATELY AN ULTRA SOUND GUIDED 20 G WAS PLACED PROXIMAL TO THE PRIOR SITE IN CEPHALIC VEIN. BLOOD EASILY ASPIRATED FROM LINE. EDUCATED NURSING STAFF THAT THIS IV SITE MAY NOT LAST FOR VERY LONG.
--- NOTE | 2019-11-30 15:55 | NUR ---
BEDBATH BY THIS V BELT CURER AND RN KUSHAL. MAJOR EDEMA ON LEFT SIDE OF PANNIS AND LEFT BREAST. SOLID AND HARD, PATIENT REPORTS SHE USUALLY LIES ON HER LEFT SIDE. PATIENT WAS REPOSITIONED ONTO RIGHT SIDE, PILLOWS UNDER LEFT HIP. PILLOWCASE PLACED UNDER PANNIS TO KEEP DRY. CALL LIGHT IN REACH.
--- NOTE | 2019-11-30 16:53 | NUR ---
CALL TO DR PELAEZ WITH CONCERNS OF LOC AND DECREASE IN URINE OUTPUT. DISCUSSED POSITIVE BLOOD CULTURES, SOFT B/P'S, AND LABS. ORDERS GIVEN TO START NS BOLUS OVER 1 HOUR AND TRANSFTER PT TO CCU. BOLUS STRTED AND PT BROUGHT OVER ON BED, REPORT GIVEN TO PATSY BUTLER.
--- NOTE | 2019-11-30 17:12 | NUR ---
REPORT REC'D FROM KUSHAL ON MED/SURG. PATIENT BROUGHT OVER TO ROOM 127 IN HER [facility] BED. PT VERY TIRED, BUT DOES AWAKEN AND ANSWER QUESTIONS. PT'S HERMINIO IN ROOM. DUKES DRAINING MINIMAL URINE. IV BOLUS FINISHING OF [address] PELAEZ NOW IN ROOM TO SEE PATIENT. LEFT LEG VERY RED, AND EDEMATOUS. EDEMA IN BILATERAL LOWER LEGS. PT ON 2 L NC AT THIS TIME. U/S GUIDE IV START IN RIGHT UPPER ARM STILL PULLING BACK BLOOD.
--- NOTE | 2019-11-30 19:49 | NUR ---
REPORT RECEIVED FROM DAY SHIFT RN. NS COMPLETED, IVF NOW RUNNING AT 150ML/HR. BOTH IV SITES INTACT. DUKES DRAINING CLEAR YELLOW URINE, URINE SAMPLE COLLECTED AND SENT TO LAB. PT IS SLEEPING, RESPONDS TO VOICE, STATES NO WHEN ASKED IF SHE HAS NEEDS/PAIN THEN QUICKLY BACK TO SLEEP. O2 IN PLACE SATS 100%, RR 15, HR 76, AFEBRILE.
--- NOTE | 2019-11-30 20:36 | NUR ---
CALL TO DR PELAEZ TO UPDATE REGARDING URINE OUTPUT 30ML LAST HOUR. LAB IN TO DRAW.
--- NOTE | 2019-11-30 20:59 | NUR ---
LAB UNABLE TO GET BLOOD, BLOOD DRAWN FROM IV SITE. PT DROWSY BUT DOES WAKE OCC AND ASK QUESTIONS, ASK FOR WARM BLANKET.
--- NOTE | 2019-11-30 21:58 | NUR ---
CRITICAL CALIUM VALUE RECEIVED FROM LAB, RESULTS CALLED TO DR PELAEZ, DR PELAEZ TO PUT IN NEW ORDERS.
--- NOTE | 2019-12-01 00:45 | NUR ---
IN TO DO ASSESSMENT, URINE OUTPUT REMAINS STEADY. PT C/O PAIN IN LE WITH MOVEMENT OR TOUCH BUT WHEN NOT TOUCHED SHE GOES BACK TO SLEEP QUICKLY. REDDENED AREA ON LEFT THIGH WAS MARKED WITH A MARKER AND HAS NOT GROWN.
--- NOTE | 2019-12-01 02:00 | NUR ---
PT CONT TO MOSTLY JUST SLEEP, RESP EVEN AND UNLABORED. AROUSES NOW WITH LESS STIMULATION BUT OVERALL DROWSY.
--- NOTE | 2019-12-01 03:50 | NUR ---
IN TO CHECK ON PT. ASSESSMENT DONE. PT C/O 01/01 IN LOWER EXTREMITIES. HELPED WITH REPOSITIONING ONTO PILLOW AND PRN TYLENOL GIVEN. PT ANSWERING QUESTIONS APPROPRIATLEY AND INTERACTING, NO LONGER DROWSY SHE WAS EARLIER IN THE SHIFT. DRINKING WATER. URINE OUTPUT CONTINUES TO BE 50ML/HR.
--- NOTE | 2019-12-01 05:45 | NUR ---
LAB IN TO DRAW
--- NOTE | 2019-12-01 09:34 | NUR ---
PATIENT USES CALL LIGHT AND STATES SHE NEEDS TO HAVE ANOTHER BM. ABLE TO TURN PERSON WITH 2 PERSON ASSIST ONTO BED MORGAN. PT HAVE TO HAVE ANOTHER SOFT BM. PT THEN BOOSTED UP IN BED WITH USING TRENDELENBERG FUNCTION OF BED. PT EATING HER BREAKFAST AND TOLERATING WELL. SP02 97% ON 1 L NC. CONTINUE TO MONITOR.
--- NOTE | 2019-12-01 09:55 | NUR ---
PATIENT'S IN ROOM AND ATTENTIVE TO PATIENT.
--- NOTE | 2019-12-01 12:23 | NUR ---
ATTEMPTED MIDLINE IN PATIENT'S LEFT UPPER ARM. UNABLE TO ADVANCE CATHETER INTO VEIN. VEINS LOOK MUCH BETTER TODAY AND MORE LIKELY TO BE ABLE TO ACCESS. PT ON BED MORGAN AGAIN BUT UNABLE TO HAVE A BM.
--- NOTE | 2019-12-01 12:33 | NUR ---
PHYS THERAPY IN ROOM AT THIS TIME WORKING WITH PATIENT.
--- NOTE | 2019-12-01 13:56 | NUR ---
PATIENT USES CALL LIGHT AND STATES SHE NEEDS TO REPOSITION IN BED, MORE TO THE CENTER. BED TURN ASSIST USED AND HELPED PATIEN WITH THIS. PT STILL C/O FEELING COLD. TEMP 98.1.
--- NOTE | 2019-12-01 14:36 | NUR ---
U/S TECH IN ROOM AT THIS TIME PERFORMING RUQ U/S. PT GIVEN WARM BLANKETS PER REQUEST. CONTINUE TO MONITOR.
--- NOTE | 2019-12-01 19:45 | NUR ---
REPORT RECEIVED FROM DAY SHIFT RN. PT AWAKE IN BED WATCHING TV, STATES SHE HAS HAD A BOWEL MOVEMENT. PT CLEANED UP, REPOSITIONED IN BED.
--- NOTE | 2019-12-01 21:20 | NUR ---
PT MOVED TO ROOM 129. PAIN MED GIVEN PER REQUEST FOR 01/01 BILAT LE PAIN.
--- NOTE | 2019-12-02 00:25 | NUR ---
ASSESSMENT DONE, PT AWAKENS EASILY, KIND OF MUMBLES THEN GOES BACK TO SLEEP. URINE OUTPUT QUANTIY SUFFICIENT. SPO2 ON ROOM AIR DOWN TO 88%, AND PT DID C/O SOB-O2 PLACED BACK ON 2L/NC AND SATS UP TO 95%.
--- NOTE | 2019-12-02 02:35 | NUR ---
IN TO CHECK ON PT, PT REQUESTS A SNACK. JELLO GIVEN AND PT HELPED TO SIT UP IN BED TO EAT IT.
--- NOTE | 2019-12-02 03:56 | NUR ---
IN TO ASSESS PT, DIET SODA GIVEN PER REQUEST. C/O LEG PAIN WITH MOVEMENT, ASSISTED WITH REPOSITIONING.
--- NOTE | 2019-12-02 05:30 | NUR ---
PT CALLS, NEEDS TO HAVE A BM, ATTEMPTED TO PLACE ON BEDPAN BUT PT WAS INC STOOL. PERICARE DONE, PT VERY PAINFUL WITH MOVING IN BED, GREEN SHEET USED TO TURN PT TO GIVE THOROUGH SKIN CARE, PT VERY WEAK AND NOT ABLE TO MOVE SELF VERY MUCH, 3 RNS IN TO MOVE AND CLEAN PT. PRN PAIN MED GIVEN.
--- NOTE | 2019-12-02 06:30 | NUR ---
THE LAST FEW HOURS PT HAS C/O MORE SHORTNESS OF BREATH, WHEN ON ROOM AIR SATS ARE 88-92%, 2L/NC SATS UP TO 95%. PT HAS ALSO SEEMED A BIT MORE CONFUSED, SAYING WORDS THAT ARE OUT OF PLACE. WHEN ASKED IF SHE KNOWS WHERE SHE IS SHE STATES "YES, IM IN THE [facility] IN [place], IF I SAW IT ID KNOW WHERE I AM."
--- NOTE | 2019-12-02 07:00 | NUR ---
REPROT RECEVIED. PT IN BED WITH EYES CLOSED. 2L NC IN PLACE. VITALS STABLE.
--- NOTE | 2019-12-02 07:23 | NUR ---
ECHO BEING DONE.
--- NOTE | 2019-12-02 08:15 | NUR ---
PATIENT CALLED TO USE BED MORGAN, 3PA ONTO BED MORGAN. INEZ CARE AND CATH CARE DONE, RN IN ROOM.
--- NOTE | 2019-12-02 09:40 | NUR ---
ASSESSMENT COMPLETED. PT VERY DROWSY AND UNABLE TO STAY AWAKE WITH CONVERSATION, PT IS ORIENTED TO PLACE, TIME AND SITUATION. ANSWERS INAPPROPRIATLY AT TIMES. LUNGS WITH WHEEZING HEARD. DIM IN BASES. USE OF EXCESSORY MUSCLES. EDEMA STILL PRESENT, NO IMPROVEMENT. 2L NC IN PLACE. PT ASSSITED 3 PERSON TO BED MORGAN FOR BOWEL MOVEMENT. MED SOFT BROWN BM PRODUCED. BLISTER TO RIGHT HEEL INTACT, FEET FLOATED ON PILLOWS. FLUIDS INFUSING WNL. RIGHT UPPER ARM IV WITH GOOD BLOOD RETURN, RIGHT AC IV FLUSHES WELL. PT ATE NO BREAKFAST. NOT DRINKING WATER, SAYING "IT TASTE NASTY".
--- NOTE | 2019-12-02 10:28 | NUR ---
ROUNDED WITH DR PELAEZ. POC DISCUSSED. FLUIDS DECRESSED TO 60M/HR.
--- NOTE | 2019-12-02 11:18 | NUR ---
MAGNESIUM STARTED. LAB TO BEDSIDE TO DRAW CULTURES. PT IS REFUSING ALL CARES AT THIS TIME INCLUDING PICC PLACEMENT. PT REASONING AND RATIONALS FOR REFUSING CARES ARE INAPPROPRIATE. PHYSICAL THERAPY TO BEDSIDE WELL, PT THERAPY. DR PELAEZ NOTIFIED. WILL TRY AGAIN LATER.
--- NOTE | 2019-12-02 11:25 | NUR ---
PT REMOVED OXYGEN, REFUSING TO PUT IT BACK ON. SATURATION 93% ON RA AT THIS TIME.
--- NOTE | 2019-12-02 12:20 | NUR ---
PT REFUSING BLOOD SUGAR, PULLED FROM IV TO AVOID POKE. DR PELAEZ TO BEDSIDE TO ASSESS PT. PT PARANOID WITH CARES BEING PROVIDED REPROTING SHES CONFUSED AND NOT BEING INFORMED OF TREATMENT EVEN THOUGH ALL PROCEDURES AND RESULTS ARE DISCUSSED WITH PT. CALLED AND UPDATED ON PT CHANGE IN MENTAL STATUS. WILL COME IN TO TALK WITH PT.
--- NOTE | 2019-12-02 12:34 | NUR ---
TO BEDSIDE. PT MORE CALM NOW AND WILLING TO HAVE BLOOD CULTURES DRAWN. LAB NOTIFIED. PT ALSO AGREEABLE TO PICC LINE BEING PLACE. OXYGEN MARY JILLIAN PT AT 2L NC.
--- NOTE | 2019-12-02 12:37 | NUR ---
LAB TO BEDSIDE FOR BLOOD CULTURES.
--- NOTE | 2019-12-02 14:00 | NUR ---
IN TO HANG ABX. PT AWAKENS ON AND OFF WITH ACTIVITY IN ROOM. AT BEDSIDE. 2L NC IN PLACE. VITALS STABLE. FOELY EMPITED FOR 150 MLS. PT ATE COUPLE PIECES OF CHEESE. REFUSED GLUCERNA SHAKE. DENEIS FURTHER NEEDS.
--- NOTE | 2019-12-02 14:12 | NUR ---
PT RESTING IN BED, HAS HAD TROUBLE WITH TIMES OF CONFUSION. AT BS GIVING COMFORT AND SUPPPORT. PT ACKNOWLEDGES MY PRESENCE, SAID SHE DOESN'T FEEL UP TO VISIT. GAVE ENCOURAGEMENT AND BLESSING. PT ACCEPTED [facility] PT'S THANKED ME, WILL FOLLOW
--- NOTE | 2019-12-02 17:18 | NUR ---
SHASTA RN TO BEDSIDE TO ASSESS PT WOUNDS. MARCELEN WITH MEDERINONEY PLACED ON LEFT REAR THIGH WOUNDS. HEEL PROTECTOR ACCEPTABLE FOR RIGHT HEEL WOUND AND LABIA WOUND TO BE LEFT OPEN TO AIR. PT ONLY AWOKE BREAFLY FOR ASSESSMENT WITH MOVEMENT AND PAIN OF LEFT LEG.
--- NOTE | 2019-12-02 17:18 | NUR ---
PT IS SEEN FOR A WOUND CONSULT OF MULTIPLE WOUNDS ON THE LOWER EXTREMITIES AND LABIA. THE RIGHT HEEL IS A DEEP TISSUE INJURY, IT IS BOGGY, BUT INTACT. IT IS RECOMMENDED TO CONTINUE TO OFFLOAD THE PRESSURE AND WATCH FOR BREAKDOWN. THE INSIDE OF THE RIGHT LEG HAS CELLULITIS PRESENT, THERE IS CURRENTLY NO ACTIVE DRAINAGE, IT IS RECOMMENDED TO LEAVE THIS AREA ALONE FOR THE TIME BEING. THE LEFT LABIA ALSO HAS A PARTIAL THICKNESS INJURY, CURRENTLY POWDER IS BEING PUT IN THE PATIENT'S PANNUS AND FOLDS, THIS SHOULD BE SUFFICIENT FOR ANY DRAINAGE PRESENT, THIS SPECIFIC AREA IS DIFFICULT IN TERMS OF DRESSING USAGE, MEDIHONEY COULD BE USEFUL SHOULD IT START TO DRAIN HEAVILY. THERE ARE TWO FULL THICKNESS WOUNDS ON THE BACK OF THE LEFT THIGH THE WOUND PROXIMAL TO THE BUTTOCK MEASURES 1CM X 1CM X 0.1CM, THE DITAL WOUND MEASURES 1.5CM X 0.5CM X 0.1CM. BOTH WOUNDS ARE DRESSED WITH MEDIHONEY AND ADHESIVE FOAM DRESSINGS THAT SHOULD BE CHANGED EVERY 3-4 DAYS OR NEEDED.
--- NOTE | 2019-12-02 18:33 | NUR ---
PT COMPLAINING OF DIFFICULTY BREATHING. REPOSITIONED PT AND SOB IMPROVED. AUDIBLE WHEEZING IN UPPER AIRWAY AND CRACKLES IN BILAT LOWER LOBES. DR PELAEZ NOTIFIED. ORDERS TO START BIPAP/CPAP. RT CALLED AND NOW AT BEDSIDE.
--- NOTE | 2019-12-02 19:45 | NUR ---
REPORT RECEIVED FROM KUSHAL BUTLER. PT RESTING WITH EYES CLOSED, WEARING CPAP. IN ROOM, QUESTIONS ANSWERED.
--- NOTE | 2019-12-02 20:15 | NUR ---
PT TOOK CPAP OFF, STATES SHE CANNOT TOLERATE IT. RT AWARE, WILL COME AND TRY TO WORK WITH PT TO WEAR IT.
--- NOTE | 2019-12-02 20:30 | NUR ---
ASSESSMENT DONE. AT BEDSIDE ASKING QUSTIONS ABOUT PTS CONDITION LAST NIGHT AND THROUGH THE DAY. PT IS AWAKE AND ALERT AT THIS TIME ALTHOUGH DOES SEEM TIRED, TALKING WITH EYES CLOSED, DRIFTING OFF TO SLEEP AT TIMES THROUGH THE CONVERSATION. PLAN OF CARE DISCUSSED WITH PT AND .
--- NOTE | 2019-12-02 21:13 | NUR ---
ASSISTED RN NIALL WITH GETTING pt ON THE BED MORGAN VIA CHOLO LIFT AND TURNING WITH DIFFICULTY. pt IS CURRENTLY ON BED MORGAN WITH CALL LIGHT TO SAY WHEN SHES FINISHED.
--- NOTE | 2019-12-02 21:45 | NUR ---
PT ONTO BEDPAN PER REQUEST, HAD MED SIZED SOFT BM, INEZ CARE DONE, DUKES CARE DONE. PT WAS VERY PAINFUL THROUGHOUT BED CHANGE, WAS NOT ABLE TO ASSIST MUCH WITH TURNING OR MOVING SELF ALTHOUGH SHE WAS WILLING TO TRY.
--- NOTE | 2019-12-02 21:51 | NUR ---
pt CLEANED, NEW DRAW SHEETS APPILED ALONG WITH NEW CHOLO SLING. pt WAS YELLING OUT IN PAIN, WAS REASSURING pt THE ENTIRE TIME. 3PAW/CHOLO SLING MINIMUM. ICE WATER GIVEN, APPLE JUICE GIVEN TO S/O.
--- NOTE | 2019-12-02 22:31 | NUR ---
RT IN ROOM TO TRY TO ASSIST PT WITH TOLERATING CPAP, SWITCHED MASK, PT CURRENTLY WEARING CPAP, ON ROOM AIR SPO2 91%. WILL CONT TO MONITOR.
--- NOTE | 2019-12-03 02:04 | NUR ---
PT RESTING WITH EYES CLOSED. RESP SLIGHTLY SHALLOW, UNALBROED, RR 22. SPO2 95% ON 2L/NC.
--- NOTE | 2019-12-03 02:22 | NUR ---
PTS CAME OUT TO SAY PT IS WANTING TO BE REPOSITIONED. IN TO REPOSITION PT WITH 2-3 RNS, PT UNABLE TO FIND A COMFORTABLE POSITION, SPENT APPROX 45 MINUTES POSITIONING PT. PT CRYING DURING THIS TIME, LEFT LEG ESPECIALLY VERY SENSITIVE TO TOUCH AND MOVEMENT. PRN TYLENOL GIVEN. PT SEEMS ANXIOUS REGARDING PAIN AND MOVING HERSELF.
--- NOTE | 2019-12-03 04:30 | NUR ---
PT HAS BEEN SLEEPING/RESTFUL FOR APPROX ONE HOUR
--- NOTE | 2019-12-03 06:23 | NUR ---
LAB IN TO DRAW
--- NOTE | 2019-12-03 08:20 | NUR ---
Spoke with Norbert and her spouse, Franki. They live in [place] in a 1 story with a ramp. 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 [facility] is where she obtains her medical and meds. She states she is scheduled for a sleep study on . Keturah ALONZO are seeing pt for wounds and will need resumption of care orders. Will follow pt for any issues or needs.
--- NOTE | 2019-12-03 09:48 | NUR ---
PATIENT REPOSITIONED ONTO RIGHT SIDE WITH PILLOWS UNDER LEFT SIDE, CHOLO LIFT AND 2PA USED TO TURN PATIENT. AT BEDSIDE. CALL LIGHT IN REACH. NO FURTHER NEEDS AT THIS TIME.
--- NOTE | 2019-12-03 10:31 | NUR ---
PICC RN IN ROOM EVALUATING PATIENT FOR POTENTIAL PICC LINE PLACEMENT. PT AGREEABLE AND WANTING PICC LINE. PT'S REMAINS IN ROOM AT THIS TIME PER PATIENT'S REQUEST. PT REMAINS ON 1 L NC AND SP02 IS 95% CURRENTLY. DUKES DRAINING YELLOW URINE. CONTINUE TO MONITOR.
--- NOTE | 2019-12-03 12:23 | NUR ---
BED BATH GIVEN TO PATIENT, 3PA. SKIN CARE, INEZ CARE, CATH CARE DONE. LINENS CHANGED. NEW GOWN PROVIDED. PAITIENT REPOSTIONED BACK ONTO RIGHT SIDE WITH PILLOWS UNDER LEFT SIDE. RN IN ROOM. CALL LIGHT IN REACH. NO FURTHER NEEDS AT THIS TIME.
--- NOTE | 2019-12-03 13:14 | NUR ---
PATIENT HELPED TO REPOSITION IN BED WITH USING GREEN LIFT SHEET. PATIENT REQUESTING TO TALK WITH HER AND HE CALLED PHONE IN ROOM. PATIENT STATES SHE IS SLIGHTLY SHORT OF BREATH. PT WILLING TO WEAR CPAP AT THIS TIME AND HELPED TO GET THIS ON RIGHT. SP02 IS 92% ON THE CPAP. IVF CONTINUE AT 60 ML/HR INTO LEFT PICC LINE LEFT UPPER ARM. PICC LINE DRESSING WILL NEED TO BE CHANGED THIS AFTERNOON DUE TO BLOOD UNDER DRESSING.
--- NOTE | 2019-12-03 13:50 | NUR ---
CONNECTED WITH PT'S FOR A MOMENT. ASKED HOW PT WAS DOING, HE SAID NOT WELL HE HAD HOPED. GAVE ENCOURAGEMENT AND WILL FOLLOW
--- NOTE | 2019-12-03 14:17 | NUR ---
PICC INSERTION NOTE. ORDERS CONFIRMED TO CONTINUE EVALUATING RONY FOR POSSIBLE PICC PLACEMENT. AFTER DISCUSSING CARE WITH HER PRIMARY NURSE, HER , AND REVIEWING THE CHART, NO ABSOLUTE CONTRAINDICATIONS WERE FOUND. BOTH ARMS WERE EXAMINED WITH U/S AND THE LEFT CEPHALIC VEIN IS HER BEST OPTION FOR PICC PLACEMENT AT THIS POINT. THE ARM WAS STERILELY PREPPED AND DRAPED AND THE LEFT CEPHALIC VEIN WAS ACCESSED WITH SOME DIFFICULTY. THERE WERE NO ISSUES ADVANCING THE GUIDEWIRE, INTRODUCER OR PICC. THE LINE WAS ADVANCED WITH MAGNET CONFIRMATION OF CENTRAL LOCATION AND REPEAT CHEST XRAYS WERE TAKEN PER GLASS DESIGNER. A STERILE DRESSING WAS APPLIED. RADIOLOGIST REPORT CONFIRMS TIP OF PICC IN CAVOATRIAL JUNCTION. REPORT WAS GIVEN TO THE PRIMARY CCU RN.
--- NOTE | 2019-12-03 14:41 | NUR ---
PHYS. THERAPY IN ROOM TO WORK WITH PATIENT. PATIENT HELPED TO SIT ON EDGE OF BED WITH 3 PERSON ASSIST. PT HAS HER SENSE OF HUMOR BACK AND IS MUCH MORE INTERACTIVE AND DISCUSSING CARE PLAN WITH CAREGIVERS. PT'S BACK IN ROOM AT THIS TIME.
--- NOTE | 2019-12-03 15:25 | NUR ---
PATIENT BUSY WITH CARES. WILL TRY TO TALK WITH PATIENT ANOTHER TIME.
--- NOTE | 2019-12-03 16:32 | NUR ---
PICC LINE DRESSING CHANGED BY THIS RN. PICC LINE NOW HAS 5 CM EXPOSED. REPORT GIVEN TO LUKE GARCÍA RESUMING CARE OF PATIENT. LORNA MOVED OVER TO M/S IN [facility] BED AND ALL BELONGINGS TAKEN WITH HER. PT'S ACCOMPANIES HER TO NEW ROOM.
--- NOTE | 2019-12-03 16:43 | NUR ---
PT STATES THAT SHE IS IN PAIN. THIS RN TO GIVE PT 1 NORCO AT THIS TIME. ALSO THIS RN REPOSTIONED PT ONTO HER RIGHT SIDE WITH A ROLL ASSIST FROM THE BED.
--- NOTE | 2019-12-03 18:57 | NUR ---
IN PTS ROOM DUE TO PT COMPLAINING THAT SHE FEELS HOT AND COLD ON HER ARMS AND TOES. PT STATES THAT SHE WAS TRYING TO "ORDER SOMETHING ONLINE FROM THE [facility]" PTS TEMPERATURE 98.0 ORALLY. PT ALSO STATES THAT SHE IS HAVING SOME PAIN. THIS RN IN ROOM TO GIVE PT 500MG OF TYLENOL AT THIS TIME
--- NOTE | 2019-12-03 19:07 | NUR ---
IN ROOM FOR REPORT, PT IS AWAKE IN BED. SHE DENIES NEEDS AT THIS TIME AND CALL LIGHT IS CLOSE. PT'S IS IN ROOM.
--- NOTE | 2019-12-03 21:42 | NUR ---
ASSESSED PT AND ADMINISTERED MEDICAITONS. PT HAD CPAP ON WHEN ENTERING THE ROOM BUT TOOK IT OFF WHEN VS WERE TAKEN AND TO TAKE PO MEDICATIONS. SHE NOW IS REFUSING TO PUT IT BACK ON, PLACED HER ON 1 LNC WHILE SLEEPING. SHE WANTED NORCO FOR PAIN 10/31 AND REFUSED TO LIFT FEET TO INSPECT HEELS. SHE IS IN A BARATRIC BED AND WANTS TO BE UPRIGHT TO SLEEP. SHE HAS FRESH WATER AT BEDSIDE AND DENIES FURTHER NEEDS AT THIS TIME. CALL LIGHT IS CLOSE.
--- NOTE | 2019-12-04 00:05 | NUR ---
PT IS RESTING WITH EYES CLOSED, RR IS EVEN AND NONLABORED ON 1L NC. CALL LIGHT IS CLOSE IS IN ROOM SLEEPING.
--- NOTE | 2019-12-04 03:07 | NUR ---
PT IS RESTING WITH EYES CLOSED, RR IS EVEN AND NONLABORED ON 1LNC. SPOUSE IS IN THE ROOM. CALL LIGHT IS CLOSE.
--- NOTE | 2019-12-04 04:45 | NUR ---
PT IS RESTING WITH EYES CLOSED, RR IS EVEN AND NONLABORED. CALL LIGHT IS CLOSE.
--- NOTE | 2019-12-04 05:55 | NUR ---
IN ROOM TO ADMINISTER NORCO FOR PAIN AND THYROID MED. ALSO ADJUSTED PT IN BED AND ANUM LABS FROM PICC. PT DENIES FURTHER NEEDS AT THIS TIME. CALL LIGHT IS CLOSE.
--- NOTE | 2019-12-04 07:30 | NUR ---
PATIENT CALLED SHE WAS DONE WITH BEDPAN. ALSO ASKED TO BE REPOSITIONED. THIS FINANCIAL PROCESSING CLERK, IVAN CANO AND IVAN GUAMAN IN ROOM, PATIENT TURNED TO RIGHT, PILLOWS BEHIND. PATIENT BEGAN TALKING ABOUT NOT BEING ABLE TO SWIM AND SHE NEEDS SOMEONE TO MASSAGE SOME CREAM ON HER LEG TO RELAX IT,ALSO MENTIONED SHE WANTED SOMEONE TO JUST GIVE HER "SOMETHING" TO HELP HER "FADE OFF" THE TALK DIDN'T MAKE MUCH SENSE BUT SHE WAS FINALLY ABLE TO EXPLAIN SHE FEELS AKWARD LYING ON HER RIGHT SIDE BECAUSE SHE IS ALWAYS ALWAYS ON HER LEFT, AND WEARING THE CPAP MAKES HER FEELS THOUGH SHE'S "SWIMMING" AND SHE CANNOT SWIM (CAN'T BREATHE.) REPORTED TO RN.
--- NOTE | 2019-12-04 07:44 | NUR ---
received report from junior rivera. pt awake in bed. during report pt stated that needed to use the bedpan to have a bowel movement. it took 4 staff members to turn pt to her right side. pt able to help a bit but the bed turn assist and 4 staff memebers had to do most of the work.
--- NOTE | 2019-12-04 10:24 | NUR ---
PATIENT RESTING IN BED, 2PA WITH IVAN CANO TO REPOSITION PATIENT. IN ROOM. PATIENT REFUSED BREAKFAST. WAS HESITANT TO ORDER LUNCH, AGREED TO PROTEIN PACK. CALL LIGHT IN REACH. CALL IGHTIN REACH
--- NOTE | 2019-12-04 10:40 | NUR ---
Spoke with pt and spouse this am. Pt is uncomfortable and is moaning. Staff are aware and getting meds for pt. Attempted to discuss with spouse if he is able to care for pt at home and if she would consider a SNF on dc. He states he wants to wait until a later date to discuss this. Will speak with pt tomorrow.
--- NOTE | 2019-12-04 10:43 | NUR ---
PT IN BED, NEVERS OPENS HER EYES. MOANS AND GRIMACES OFTEN, AT BS, OFTEN CONSOLING AND MASSAGING PTS L LEG. GAVE ENCOURAGMENT AND BLESSING. I ALSO PASSED ON TO DR PELAEZ THAT THEY WOULD LIKE TO VISIT WITH HIM.
--- NOTE | 2019-12-04 11:17 | NUR ---
PATIENT CALLED TO BE REPOSITIONED. THIS COLLATOR OPERATOR, ASKED HER TO GIVE US @ 5 MINUTES SO PT ODIN WAS FREE TO JOIN US. PATIENT AND AGREED.
--- NOTE | 2019-12-04 13:00 | NUR ---
PATIENT CALLED TO BE REPOSITIONED. IVAN HERRERA ASSISTED THIS EROSION CONTROL SPECIALIST, PATIENT TURNED TO RIGHT SIDE. CALL LIGHT IN REACH
--- NOTE | 2019-12-04 13:30 | NUR ---
PATIENT CALLED TO BE SAT UP OR REPOSITIONED. LUKE GARCÍA AND THIS RN FORENSIC USED CHOLO TO LIFT PATIENT AND MOVE HER HIGHER IN BED. LEGS STILL ELEVATED, IN ROOM. CALL LIGHT WITHIN REACH. DIET SODA PROVIDED.
--- NOTE | 2019-12-04 13:38 | NUR ---
Call from Gi BUTLER at [facility]. Update given as they are wanting to know if pt will go to a SNF on Dc. Updated I attempted to discuss with pt and spouse, but they did not want to discuss at this point.
--- NOTE | 2019-12-04 14:11 | NUR ---
IN ROOM. VITALS AND I&OS CHARTED. THIS WIRE WEAVING LOOM SETTER AND VISITING WITH PATIENT ABOUT IMPORTANCE OF EATING, SHE HAS REPORTED SHE IS NOT INTERESTED IN EATING ANYTHING AT ALL. PATIENT ROLLED HER EYES. DIETITIAN IN IN ROOM NOW TO VISIT PATIENT, PATIENT UNINTERESTED IN TALKING TO HER. THIS WIRE WEAVING LOOM SETTER AT BEDSIDE ENCOURAGING HER TO PARTICIPATE IN CONVERSATION. PATIENT TURNED DOWN VIRTUALLY EVERY OPTION OFFERED TO HER, EVENTUALLY OPENED UP AND LET TIO KNOW WHAT SHE "DOES" LIKE TO EAT. CALL LIGHT IN REACH, DUKES EMPTIED.
--- NOTE | 2019-12-04 14:39 | NUR ---
PATIENT IN BED, SITTING UP, WATCHING TV. JUST LEFT FOR A LITTLE WHILE. STARTED TALKING TO PATIENT ABOUT PROTEIN AND HOW IMPORTANT PROTEIN IS FOR WOUND HEALING AND KEEPING MUSCLES STRONG. SHE DOES NOT LIKE: DAIRY FOODS, COTTAGE CHEESE, STATES SHE DOES NOT LIKE EGGS, CHICKEN, HAM, OR STEAK. BASICALLY AT HOME SHE EATS ROE SOUP, LENTIL SOUP, OR SPLIT PEA SOUP. SHE DOES NOT DRINK SOY MILK OR ANY OTHER MILK ALTERNATIVE. MYSELF, GAVIN (ERP BUSINESS ANALYST), AND RAQUEL (RN) HAVE ENCOURAGED PATIENT TO EAT SOME PROTEIN INSTEAD OF SUGARY FOODS ALL THE TIME. PROVIDED A HANDOUT ON PROTEIN FOODS ON OUR MENU ALONG WITH SAMPLE MENU IDEAS AND LEFT IT ON HER BEDSIDE TABLE. WILL STOP BY TOMORROW AND SEE IF SHE TRIED ANY OTHER PROTEIN FOODS.
--- NOTE | 2019-12-04 17:00 | NUR ---
THIS RN IN ROOM TO ASSIST GAVIN IVAN TO DO DUKES CARE. PT THEN STATED SHE NEEDED HAVE A BM. WITH 4 STAFF MEMBERS, TURN ASSIST ON THE BED, AND USING THE DRAW SHEET, WE WERE ABLE TO GET PT ON BEDPAN. PT HAD A SMEAR OF BM. 4 STAFF MEMBERS PLACED A PILLOW UNDER HER HEAD, 1 PILLOW UNDER EACH SHOULDER, 1 PILLOW UNDER EACH HIP AND ONE FOLDED IN HALF UNDER PTS LEFT LEG. PT STATES THAT SHE IS COMFORTABLE. PTS SKIN LOOKS GOOD ON HER BACK. PILLOWS PLACED IN AREAS TO ALLOW TO RELIEVE PRESSURE FROM PTS SKIN
--- NOTE | 2019-12-04 17:25 | NUR ---
LUKE GARCÍA AND THIS FEED MILL OPERATOR GAVE PATIENT BEDBATH AND DUKES CARE. 4PA PATIENT ONTO BEDPAN AND THEN CHOLO UP TO CHANGE LINENS AND GREEN CHOLO SLING OUT. PATIENT TOLERATED WELL, CRIED OUT IN PAIN A COUPLE TIMES. FLOATED WITH PILLOWS BACK IN ROOM, PATIENT STATES TO HIM SHE HAS SOME "NOT GREAT NEWS" TO DISCUS, AND THAT SHE JUST WANTS TO REMAIN TO HIM. PATEINT ALSO TELLS "THESE GIRLS HAVE NO IDEA HOW MEAN I CAN BE" WHEN ASKED WHAT SHE MEANS.. PATIENT STATES, SHE CAN JUST BE VERY VENGEFUL. VERY CONFUSING CONVERSATION. CALL LIGHT IN REACH, DUKES EMPTIED. NO OTHER NEEDS.
--- NOTE | 2019-12-04 17:36 | NUR ---
PATIENT REFUSED ORDERING DINNER. MULTIPLE OPTIONS GIVEN.
--- NOTE | 2019-12-04 19:09 | NUR ---
IN ROOM FOR REPORT, PT IS AWAKE IN BED AND ASKING FOR PAIN MEDS. DAY RN RAQUEL WILL BRING SOME IN WHEN REPORT IS COMPLETE. CALL LIGHT IS CLOSE, IS AT BEDSIDE.
--- NOTE | 2019-12-04 21:06 | NUR ---
VITALS I&OS AND BLOOD SUGAR DONE AND CHARTED. WITH THE HELP OF LUKE CADE, THE BED AND I WE REPOSITIONED PT TO HER RIGHT SIDE PER HER REQUEST. PUT PILLOWS UNDER BOTH LEGS. FRESH ICE WATER GIVEN. BEDSIDE TABLE AND CALL LIGHT IN REACH.
--- NOTE | 2019-12-04 21:10 | NUR ---
ASSESSED PT AND ADMINISTERED MEDICATIONS. SHE HAS COMPLAINTS OF PAIN ALL OVER AND ESPECIALLY IN LEG LEG/KNEE. SHE IS NOT YET DUE FOR MORE PAIN MEDS BUT SHE UNDERSTANDS THIS AND STATES IT IS DECREASING. SHE IS ENCOURAGED TO DRINK FLUIDS SINCE HER IV IS SL. IS ALSO IN ROOM AND HELPFUL TO PT. REPOSITIONED PT IN BED. SEE ASSESSMENT. PT DENIES FURTHER NEEDS AT THIS TIME. WILL RETURN 4 HRS AFTER LAST PAIN PILL WAS GIVEN. CALL LIGHT IS CLOSE.
--- NOTE | 2019-12-04 22:40 | NUR ---
PT REQUESTED TO BE REPOSITIONED. WITH HELP OF MIKIE LE RN WE USED CHOLO TO BRING HER UP HIGHER IN BED. PILLOWS PLACED ALONG BOTH SIDES OF HER BODY AND UNDER LEGS BELOW THE CHOLO SLING. SHE STATES SHE IS NOW MORE COMFORTABLE. WILL RETURN SOON TO ADMINISTER PAIN MEDICATIONS. SHE DENIES FURTHER NEEDS AND CALL LIGHT IS CLOSE. IV IS NOW HEPLOCKED AFTER IV ABX COMPLETE.
--- NOTE | 2019-12-04 23:04 | NUR ---
PER PT REQUEST I GAVE HER A DIET DON WITH ICE.
--- NOTE | 2019-12-04 23:34 | NUR ---
ADMINISTERED NORCO FOR 10/10 PAIN. PT IS DROWSY. SHE STATES SHE IS COLD. PROVIDED WARM BLANKETS FOR COMFORT. SHE DENIES FURTHER NEEDS AT THIS TIME. CALL LIGHT IS CLOSE AND IS IN ROOM.
--- NOTE | 2019-12-05 00:39 | NUR ---
PT REPORTS INDIGESTION/UPSET STOMACH AND WANTED MAALOX. NIO ORDER ENTERED AND ADMINISTERED TO PT. SHE DENIES FURTHER NEEDS. CALL LIGHT IS CLOSE.
--- NOTE | 2019-12-05 02:18 | NUR ---
STARTED PT'S IV ABX, SHE DENIES NEEDS. CALL LIGHT IS CLOSE.
--- NOTE | 2019-12-05 02:35 | NUR ---
WITH THE HELP OF RN'S ALYSSIA AND MIKIE WE GOT PT ONTO THE BED MORGAN WITH THE HELP FROM THE BED WELL. PT WILL CALL US WHEN SHE IS DONE HAVING A BM.
--- NOTE | 2019-12-05 03:26 | NUR ---
IGNACIA EMMANUEL TO READJUST PT IN BED, PT ALSO USED BEDPAN AND HAD A BM. ADMINISTERED NORCO. NEW ALLEVYN APPLIED TO BACK OF THIGH/PERIAREA. PT DENIES FURTHER NEEDS, CALL LIGHT IS CLOSE AND IS IN ROOM.
--- NOTE | 2019-12-05 05:34 | NUR ---
PT IS RESTING WITH EYES CLOSED, CALL LIGHT IS CLOSE.
--- NOTE | 2019-12-05 06:29 | NUR ---
IN ROOM TO DRAW LABS FROM PICC AND CHECK VS & I&O'S. PT DENIES NEEDS. CALL LIGHT IS CLOSE.
--- NOTE | 2019-12-05 07:48 | NUR ---
0705: Report received from Lavonne BUTLER. Pt sleeping at this time.
--- NOTE | 2019-12-05 09:23 | NUR ---
PT DENIES ANY NEW PROBLEMS AND REMAINS SOMEWHAT CONFUSED. SEE ASSESSMENT. PT PLACED ON A BEDPAN AT THIS TIME.
--- NOTE | 2019-12-05 10:30 | NUR ---
Pt cleaned up following a bm on her bedpan and pt respostioned at this time. Sat now 95% on room air while awake. Pt's spouse Franki to the room at this time. Pt appears comfortable and denies any pain at this time. Call he within reach.
--- NOTE | 2019-12-05 12:03 | NUR ---
PT RESTING IN HER BED AND IS EATING HER LUNCH AND VISITING WITH HER SPOUSE.
--- NOTE | 2019-12-05 12:50 | NUR ---
Pt sleeping. Spouse Franki in the room. Let him know, I will be gone tomorrow and we need to discuss a plan for dc next week. He states Dr. Hodges spoke with him and felt Norbert needs to go to a SNF. Discussed SNFs in the area and he is concerned as Norbert's mom last August at [facility]. He not sure if this will bother her. Discussed [employer]. He states he had spoken with Dr. Nava about [facility]. Also updated [facility] usually has high ratings. He would like to try for placement at [facility] and [facility]. Called [facility] and they requested chart. Spoke with Chasity at [facility] and they declined pt as they do not have any bariatric beds available at this time. Chart sent to Juanita at [facility].
--- NOTE | 2019-12-05 14:02 | NUR ---
Called and spoke with [facility] in [place]. They do not have a lift for pt's weight [phone] #. Pt was declined.
--- NOTE | 2019-12-05 14:12 | NUR ---
PT PLACED ON A NEW BED AND IT IS ON A PRESSURE ROTATION EVERY 15 MINUTES. PT STATES SHE HAS NO PAIN OR PROBLEMS AT THIS TIME OTHER THEN NOT FEELING VERY HUNGRY. SEE ASSESSMENT.
--- NOTE | 2019-12-05 15:23 | NUR ---
PT RESTING IN HER BED AND SHE DENIES ANY PAIN, PROBLEMS OR NEEDS AT THIS TIME. CALL ROWAN WITHIN REACH.
--- NOTE | 2019-12-05 17:06 | NUR ---
PT STATES SHE STARTED HAVING LEFT LEG PAIN THAT CAME ON QUICKLY AND IS NOW A 10. PT MEDICATED ORDERED, SEE EMAR.
--- NOTE | 2019-12-05 17:42 | NUR ---
Pt appears to be sleeping at this time.
--- NOTE | 2019-12-05 17:59 | NUR ---
Pt sleeping at this time.
--- NOTE | 2019-12-05 18:29 | NUR ---
Dr Hodges called and notified of the pt's urine output. No new orders at this time.
--- NOTE | 2019-12-05 19:20 | NUR ---
SHIFT REPORT RECEIVED FROM TELLY BUTLER. PT RESTING IN BED, EYES CLOSED. NC @ 2L. SPOUSE IN ROOM. RR EVEN, UNLABORED. CALL LIGHT IN REACH.
--- NOTE | 2019-12-05 20:01 | NUR ---
RECEIVED REPORT FROM LOTUS BUTLER, THIS RN WILL RESUME CARE OF PT FOR THE REST OF THIS SHIFT.
--- NOTE | 2019-12-05 20:03 | NUR ---
CHARGE NURSE ROUNDING NOTE: PT ON BARIATRIC BED
--- NOTE | 2019-12-05 20:16 | NUR ---
SCHEDULED MED PROVIDED. PICC LINE FLUSHED VIGIOURSLY WITH 20 ML NS, GOOD BLOOD RETURN, WNL. NO OTHER NEEDS AT THIS TIME. CALL LIGHT IN REACH.
--- NOTE | 2019-12-05 20:40 | NUR ---
PT'S APPROACHED NURSING STATION TO ASK FOR PAIN MED. ADVISED HIM HER MEDS ARE DUE IN 20 MIN. HE THEN STATED SHE FEELS LIKE SHE NEEDS TO HAVE A BM. LET HIM KNOW WE HAVE TO GATHER MORE HELP TO GET HER ON BED MORGAN AND WILL RETURN SOON WE CAN.
--- NOTE | 2019-12-05 20:45 | NUR ---
PT REQUESTED PAIN MEDS AND SOMETHING TO DRINK. PROVIDED WATER AND DIET DON AND ADVISED PT THIS RN WILL RETURN WITH PAIN MEDS SOON. CALL LIGHT IS CLOSE.
--- NOTE | 2019-12-05 21:47 | NUR ---
VITALS AND I&OS DONE AND CHARTED. WITH THE HELP OF RN'S ALYSSIA AND JOYCELYN WE HOYERED PT UP AND REPOSITIONED HER UP IN THE BED. BLOOD SUGAR DONE AND CHARTED WELL. BEDSIDE TABLE AND CALL LIGHT IN REACH.
--- NOTE | 2019-12-05 22:00 | NUR ---
ADMINISTERED NORCO FOR 10/10 PAIN. PT ALSO STATED THE MOVEMENT OF THE BED MAKES HER NAUSEOUS. PLACED NIO FOR ZOFRAN SL 4MG AND ADMINISTERED IT. WITH HELP OF KRIS LOVE AND JOYCELYN BUTLER WE HOYERED PT TO REPOSITION HER IN BED. SHE STATES SHE IS TOO PAINFUL TO ROLL AND USE BEDPAN. WE ADVISED HER TO GIVE US A CALL IF SHE HAS A BM AND THAT SHE HAS A PAD UNDER HER SO WE CAN GET HER CLEANED UP. PT UNABLE TO ROLL OVER AT THIS TIME TO ASSESS SKIN, SHE IS IN BARAIATRIC BED THAT ADJUSTS TO ALLEVIATE PRESSURE. IS AT BEDSIDE AND PT DENIES FURTHER NEEDS. CALL LIGHT IS CLOSE. SEE ASSESSMENT FOR MORE DETAILS.
--- NOTE | 2019-12-05 22:13 | NUR ---
SPOKE WITH PT'S ABOUT HER REQUEST FOR A LIDODERM PATCH AND THAT SHE ALREADY HAD IS PLACED THIS MORNING WHICH IS THE ONE THIS RN RECENTLY REMOVED. HE STATES HE IS GOING HOME FOR THE NIGHT TO GET SOME SLEEP. UPON ENTERING THE ROOM TO TELL PT ABOUT LIDODERM PATCH SHE IS RESTING WITH EYES CLOSED. RR IS EVEN AND NONLABORED ON 2LNC. CALL LIGHT IS CLOSE.
--- NOTE | 2019-12-06 00:41 | NUR ---
WITH THE HELP OF RN'S VINITA AND ALYSSIA WE WERE ABLE TO TURN PT ON HER SIDE ENOUGH TO LET US GET A BED MORGAN UNDER HER. PT STATED SHE NEEDED TO HAVE A BM. SHE WILL CALL WHEN SHE IS READY.
--- NOTE | 2019-12-06 01:30 | NUR ---
IN ROOM FOR LAST 45 MIN ASSISTING PT TO USE BSC, SHE HAD A SMALL SMEAR. SHE IS NOW READJUSTED IN BED WITH CHOLO AND COMFORTABLE IN BED. ADMINISTERED NORCO FOR PAIN AND SHE HAS FRESH ICEWATER AT BEDSIDE. CALL LIGHT IS CLOSE.
--- NOTE | 2019-12-06 03:19 | NUR ---
PT IS RESTING WITH EYES CLOSED, RR IS EVEN AND NONLABORED. CALL LIGHT IS CLOSE.
--- NOTE | 2019-12-06 05:52 | NUR ---
IN ROOM TO ADMINISTER TYHROID MEDICATION AND NORCO FOR PAIN.VS TAKEN AND I&O'S ENTERED. LABS DRAWN AND PICC IS NOW HEPLOCKED. PT DENIES FURTHER NEEDS AT THIS TIME. CALL LIGHT IS CLOSE.
--- NOTE | 2019-12-06 07:37 | NUR ---
PT ASLEEP, IN ROOM.
--- NOTE | 2019-12-06 09:23 | NUR ---
VITALS AND I&OS CHARTED. DUKES EMPTIED
--- NOTE | 2019-12-06 09:44 | NUR ---
AT BEDSIDE AM MEDICATIONS GIVEN, PT ORDERED A HAMBURGER FOR BKF/LUNCH AT THIS TIME AND A DIET PEPSI.
--- NOTE | 2019-12-06 11:46 | NUR ---
PT APPEARS TO BE SLEEPING EVEN WITH THE DIETATION INTO TALK WITH THEM IS ANSWERING QUESTIONS.
--- NOTE | 2019-12-06 11:57 | NUR ---
PATIENT IN BED WITH EYES CLOSED. IN ROOM, TV IS ON. INTRODUCED MYSELF TO AND EXPLAINED THAT I WAS STOPPING BY TO SEE HOW RONY IS DOING AND TO FIND OUT MORE WHAT SHE LIKES TO EAT. HE SAID AT HOME SHE IS NOT A BIG EATER. SHE DOESN'T LIKE TO DRINK MILK BUT WILL EAT ICE CREAM AND LIKES MILKSHAKES. HER BIGGEST ISSUE HE SAID IS SHE DRINKS REGULAR POP AT HOME. HE DRINKS ONLY WATER AND WATER WITH CRYSTAL LIGHT. ONCE SHE GETS HOME, HE WANTS TO WORK WITH HER TO SWITCH TO SUGAR-FREE BEVERAGES. SHE EATS MOSTLY CHICKEN AND SHE LOVES SEAFOOD. SOMETIMES THEY HAVE RICE OR PASTA WITH MEALS. SHE IS NOT A BREAKFAST EATER. HE THINKS HER APPETITE IS DECREASED BECAUSE SHE IS SICK. SHE DID ORDER A HAMBURGER FOR LUNCH TODAY. ENCOURAGED TO ENCOURAGE PATIENT TO TRY TO EAT PROTEIN FOODS WHILE HERE. SHE IS NOT KEEN ON OUR FOOD HERE SO WE'LL SEE HOW IT GOES. HE DOES NOT HAVE ANY QUESTIONS AT THIS TIME. PATIENT DID NOT CONTRIBUTE TO THE CONVERSATION. CONTINUE 60 GM CONSISTENT CARB, 2 GRAM SODIUM DIET FOR NOW. WILL CONTINUE TO MONITOR.
--- NOTE | 2019-12-06 12:30 | NUR ---
IN TO CHECK ON PT. PT TELLS SHE NEEDS TO BE REPOSITIONED, ELEVATES LEG AND ASKS IF THIS IS OK..PT SNAPS AT HIM"YOU ARE ON LEVEL 85, AND I NEED YOU BE ON LEVEL 12 AND THAT SHE IS STILL COCKEYED IN BED" THIS STITCH CLEANER REPLIES BACK TO PATIENT THAT I FEEL HER IS ACTUALLY ON THE "RIGHT LEVEL" AND WE REALLY NEED HER TO START HELPING WHEN WE MOVE OR REPOSITION HER, IT'S A BIT DIFFICULT OTHERWISE. THIS STITCH CLEANER HAS WITNESSED PT OFTEN BEING QUITE DEMANDING TO HUSBNAD, INCLUDING REFUSING TO HOLD HER OWN CUP TO DRINK. WHEN IS NOT IN ROOM, PT MANAGES THIS TASK JUST FINE. LUKE PUENTE NOTIFIED AND VASILE IVAN GOMEZ IN TO ASSIST IN REPOSITIONINGPT.CALL LIGHT IN REACH
--- NOTE | 2019-12-06 12:36 | NUR ---
PATIENT ASKING TO BE REPOSITIONED, PATIENT IS UNABLE OR UNWILLING TO HELP WITH THIS. BED SET TO AUTO TURN AT THIS TIME. PATIENT IS NOT HAPPY WITH THE AUTO TURN, ENCOURAGED TO CONTINUE.
--- NOTE | 2019-12-06 12:52 | NUR ---
PT MEDICATED WITH 1 NORCO 10/325MG PO AT THIS TIME FOR PAIN. PT DOES NOT LIKE THE BED ON TURN ASSISTANCE. EXPLAINED THAT THIS IS GOOD FOR HER LUNGS AND HER SKIN. VERY QUITE ABOUT THIS.
--- NOTE | 2019-12-06 16:00 | NUR ---
2 PA WITH IVAN GOMEZ TO BEDBATH PATIENT. NEW GOWN, HOYERED FOR REPOSITIONING. PATIENT SEEMS TO BE MUCH MORE COOPERATIVE THIS AFTERNOON, ASSISTING IN GRABBING THE BEDRAILS AND PULLING HERSELF OVER NEEDED. PATIENT LAUGHING AND JOKING WITH CNAS. TOLERATED BEDBATH VERY WELL. CALL LIGHT IN REACH, DINNER ORDERED.
--- NOTE | 2019-12-06 16:25 | NUR ---
PT APPEARS TO BE SLEEPING AT THIS TIME. ABX, STARTED AND CONTIOUE TO GET BLOOD RETURN WHEN ACCESSING PICC LINE.
--- NOTE | 2019-12-06 16:38 | NUR ---
PT APPEARS TO BE SLEEPING AT THIS TIME.
--- NOTE | 2019-12-06 17:28 | NUR ---
PT DINNER TRAYED SET UP AT THIS TIME, HAMBURGER CUT UP INTO 1/4THS AND HANDED TO HER. PT IS TRYING TO EAT AT THIS TIME
--- NOTE | 2019-12-06 18:34 | NUR ---
VITALS AND I&OS CHARTED. DUKES EMPTIED. PATIENT HOLDING AND DRINKING HER OWN CUP OF HOT CHOCOLATE. CALL LIGHT IN REACH
--- NOTE | 2019-12-06 18:38 | NUR ---
PT ONLY ATE A FEW BITES OF DINNER, SHE DID NOT EAVEN EAT A 1/4 OF A HAMBURGER. BUT SHE IS STILL DRINKING HER HOT [id number] AT THIS TIME. IS BACK AT THE BEDSIDE.
--- NOTE | 2019-12-06 19:54 | NUR ---
PT IN BED, O2 2L NC INPLACE, IN BARIATRIC BED, IN ROOM
--- NOTE | 2019-12-06 20:51 | NUR ---
pt repositioned in bed as she needed to have abm. had taken O2 off earlier on, as he c/o having a bloody nose from nc prongs. sats were 82% on room iar, O2 back on at 2LNC, sats up to 90-94% with sustained O2 sats at 93%. Coop with assessment. anxious, dim at bases on 2LNC at this time. tachy at times, large abd with bruising and rednedd between fold, and scooby area, allevyn applied to R upper inner buttocks area excoriated area. L leg redness and edema present, generalized akira, pt extremely obese, but edema worse at both hands and ankles, elevated. PICC line LAC, hep lack with abx infusing as scheduled. flushes easily. f/c patent draining yellow urine. on bariatric bed
--- NOTE | 2019-12-06 23:19 | NUR ---
HOB ELEVATTED, C/O 10/10 L LEG PAIN, MEDICATED WITH NORCO 1 TAB, TOLERATING LIQUIDS WELL, ON BARIATRIC BED. F/C PATENT. PICC LINE PATENT
--- NOTE | 2019-12-07 00:16 | NUR ---
AWAKES EASILY, ON O2 2L NC, PICC LINE PATENT ABX INFUSING, NO C/O ADVERSE REACTION. F/C PATENT, TOLERATING LIQUIDS WELL, NO N/V
--- NOTE | 2019-12-07 02:00 | NUR ---
turned was on bedpan, no bm, call ligth at bedside, tolerating large amounts of fluids.
--- NOTE | 2019-12-07 03:10 | NUR ---
medicated with norco 1 tab, c/o pain, 10/10 l leg,
--- NOTE | 2019-12-07 06:16 | NUR ---
pt awake most of this shift. has had the bedpan x2, no bm, no gas. O2 2L NC, no cough, no c/o sob. has been medicated with norco x2 c/o l leg pain, effective, allevyn applied to r upper inner buttocks area. heel protectors in place, scds in place. L picc linepatent, no c/o adverse reaction to abx. pt very obese, cbg 146 received 3 units insulin. f/c patent , draining qs . tolerating fluids well, no n/v, pt on bariatric bed, rooming in
--- NOTE | 2019-12-07 06:44 | NUR ---
c/o 10/10 l leg pain, medicated with norco 1 tab, awake, o2 in place, tolerating fluids well, no n/v heel protectors in place, l picc line heparin locked.
--- NOTE | 2019-12-07 07:26 | NUR ---
RECEIVED REPORT FROM VINITA BUTLER. PT APPEARS TO BE RESTING AT THIS TIME, RESPIRATIONS NOTED AT THIS TIME
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
--- NOTE | 2019-12-07 12:15 | NUR ---
IN PTS ROOM TO ASSIST ODIN PHYSICAL THERAPIST TO SWIVEL PT TO THE BEDSIDE EDGE. PT TOLERATED WELL BUT DID NOT PUT IN ANY EFFORT TO HELP THE 3 STAFF MEMEBERS MOVE HER.
--- NOTE | 2019-12-07 15:45 | NUR ---
IN PTS ROOM TO GIVE AFTERNOON MED AND DO ASSESSMENT. PT VERY DROWSY AT THIS TIME AND HARDLY WOKE UP FOR ASSESSMENT
--- NOTE | 2019-12-07 21:30 | NUR ---
took pt vitals, asst pt with turning
--- NOTE | 2019-12-07 21:32 | NUR ---
gas charger rounding note, pt reports p[ain 01/31 to low back. also states that she is cold. warm blanet administered. prn administered ,per primary rn. see emar. ice provided for ice tea. pt denies further needs at this time. cnas in room to obtain vs. call light in reach. white board updated.
--- NOTE | 2019-12-08 00:16 | NUR ---
repositoned, in bariatric bed, o2 2lnc. l leg cellulitis improving, heel protectors off at her requets, dressing l heel and buttocks., picc line patent, no c/o adverse raction to abx
--- NOTE | 2019-12-08 01:49 | NUR ---
asst pt onto bedpan, set bed to rightside turn, allow pt privacy to complete bm, call light in reach, will return to pt
--- NOTE | 2019-12-08 02:41 | NUR ---
C/o 10/10 l leg pain, medicated with norco 1 tab
--- NOTE | 2019-12-08 02:41 | NUR ---
3 PA USING CHOLO LIFT. CLEANED/ INEZ/DUKES CARE AND REPOSITIONED. PATIENT DID NOT HAVE BOWEL MOVEMENT.
--- NOTE | 2019-12-08 02:48 | NUR ---
3pa pt with turning unto side, pericare and off bedpan, danna sweeney pt boot up in bed, provided pt with new warm blanket
--- NOTE | 2019-12-08 03:49 | NUR ---
AWAKE, REPOSITIONED IN BED, O2 2L NC. HAS NOT BEEN USING YEIMI LIGHT, TOLERATING FLUIDS WELL, DECREASED REDNESS L LEG, GENERALIZED EDEMA W/O CHANGES. F/C PATENT
--- NOTE | 2019-12-08 03:51 | NUR ---
2pa pt on sides to add pillows for more support, add pillow under each lower leg, gave pt fresh ice water, left pt to rest, call light in reach
--- NOTE | 2019-12-08 03:51 | NUR ---
PATIENT REPOSITIONED WITH 3 PA.
--- NOTE | 2019-12-08 05:54 | NUR ---
pt has been awake 1/2 of this shift. Pt on O2 2LNC, lungs dim at bases. Has been medicated with [place] 2-3x per L leg pain with good to fair pain relief. L leg decresaed erythema, generalized edema, pt very obese. on Bariatric bed, repositioned frequently. f/c patent, heel protectors in place. L picc line patent, no c/o adverse reaction to abx. Pt to be dc'd to [place] Monday.
--- NOTE | 2019-12-08 06:52 | NUR ---
c/o 9/10 l leg and generalized back pain, medicated with 1 norco.
--- NOTE | 2019-12-08 07:44 | NUR ---
0655: Report received from Radha BUTLER. Pt sleeping with her call he within reach. Pt being turned by her bed every 15 minutes per it's setting.
--- NOTE | 2019-12-08 09:29 | NUR ---
PT RESTING IN HER BED WITH NO COMPLAINTS OF PAIN UNTIL ATTEMPTING TO REPOSITION TO CHECK HER SKIN. PT WAS QUITE INTOLERANT TO THIS AND A POOR SKIN EXAM WAS DONE DUE TO THIS. PT BEING TURNED BY HER BED EVERY 15 MINUTES AND IS TOLERATING THAT WELL. SEE ASSESSMENT.
--- NOTE | 2019-12-08 10:36 | NUR ---
Pt complains of some indigestion and was medicated as ordered. See emar.
--- NOTE | 2019-12-08 10:38 | NUR ---
Pt now appears to be sleeping.
--- NOTE | 2019-12-08 13:16 | NUR ---
THE REDNESS ON THE PT'S LEFT LEG IS DECREASED FROM WHERE IT HAS BEEN MARKED PRIOR AND THE REDNESS IS ALSO DECREASED IN BRIGHTNESS FROM MONDAY WHEN I WAS HER NURSE LAST. PT REMAINS ON IV ABX AND A DECREASE IN HER WBC'S IS NOTED FROM YESTERDAY. PT DROWSY AT THIS TIME. SKIN ASSESSMENT WAS COMPLETED WHEN SHE WAS HAVING PHYSICAL THERAPY THIS AFTERNOON. SEE ASSESSMENT.
--- NOTE | 2019-12-08 14:56 | NUR ---
PATIENT DIDN'T EAT HER BREAKFAST. PATIENT IS SLEEPING.
--- NOTE | 2019-12-08 15:26 | NUR ---
PT SLEEPING, CALL ROWAN WITHIN REACH.
--- NOTE | 2019-12-08 16:32 | NUR ---
PT SLEEPING AND HAS BEEN DROWSY FOR THE MAJORITY OF THIS SHIFT.
--- NOTE | 2019-12-08 17:45 | NUR ---
Pt's spouse Franki returned to the pt's room. This nurse and RT explained to the pt and Franki why the CPAP machine is needed and why the pt will need to allow it. RT now placing the CPAP.
--- NOTE | 2019-12-08 18:16 | NUR ---
Pt started becoming more awake and she removed her cpap mask. After a long discussion with her and her spouse as to why it is need and possible problems with not using it, the pt agrees to allow it to be replaced. The cpap is on the auto setting and with 2l of o2.
--- NOTE | 2019-12-08 18:36 | NUR ---
The pt is much more awake and keeps removing her cpap machine. It has been replaced several times in the last [address] White notified and he states that she can refuse it if she desires.
--- NOTE | 2019-12-08 19:09 | NUR ---
PT WEARING HER CPAP AT THIS TIME.
--- NOTE | 2019-12-08 19:30 | NUR ---
REPORT RECEIVED FROM DAY SHIFT RN. PT LYING IN BED RESTING WITH EYES CLOSED. NAD. CPAP IN PLACE. SPOUSE IN ROOM. WHITE BOARD UPDATED. CALL LIGHT IN REACH.
--- NOTE | 2019-12-08 19:55 | NUR ---
PAINTING AND COATING WORKER ROUNDING NOTE. PT RESTING IN BED, WENT TO RETRIEVE ITEMS FROM CAR. PT STATES THAT BIPAP MASK MAKES HER PANIC AT TIMES. PT AGREES THAT SHE TOLERATED THE MASK WELL FOR THE PAST 1 HOUR. PT STATES THAT SHE WILL STAY AWAY FOR A WHILE NOW, WOULD LIKE TO KEEP MASK OFF UNTIL SHE IS READY TO GO BACK TO BED. ICE WATER PROVIDED. PT DENIES FURTHER NEEDS. CALL LIGHT IN REACH. WHITE BOARD UDPATED. ROOM IN VIEW OF RN STATION.
--- NOTE | 2019-12-08 20:10 | NUR ---
PICC LINE FLUSHED WITH BRISK BLOOD RETURN NOTED. IV ABX INFUSING PER ORDER.
--- NOTE | 2019-12-08 21:00 | NUR ---
PRN ADMINISTERED FOR 9/10 LEFT LUNG PAIN. NO FURTHER NEEDS.
--- NOTE | 2019-12-08 22:10 | NUR ---
EVENING ASSESSMENT COMPLETE. SCHEDULED MEDS ADMINISTERED PER EMAR. PT REPORTS PAIN IMPROVED. NO NAUSEA. REPOSITIONED IN BED WITH CHOLO AND 2PA. GROIN AND UNDER BREASTS CLEANED AND POWDER APPLIED. CATH CARE DONE. LEFT LEG REDNESS IMPROVED. HEEL PROTECTORS IN PLACE. SANDWICH BOX PROVIDED. REMAINS IN ROOM. PT ON 2L/NC AT THIS TIME. SpO2 90-94%.
--- NOTE | 2019-12-08 22:50 | NUR ---
CALL LIGHT ANSWERED. PT REQUESTING CPAP BE PLACED. RT IN TO ASSIST.
--- NOTE | 2019-12-09 00:15 | NUR ---
CPAP ALARMING. PT HAD REMOVED MASK. IV ABX INFUSING. 3PA TO USE BED MORGAN.
--- NOTE | 2019-12-09 00:30 | NUR ---
3pa pt onto bed vieyra, left pt in privacy to finish, will call when ready
--- NOTE | 2019-12-09 00:45 | NUR ---
check on pt, replace nasal cannula o2 on pt
--- NOTE | 2019-12-09 01:45 | NUR ---
took pt off bed vieyra, pt states unable to produce bm, refill ice water, left pt to rest
--- NOTE | 2019-12-09 01:57 | NUR ---
PT UNABLE TO HAVE BM. 3PA OFF BED MORGAN. REPOSITIONED IN BED. CPAP PLACED.
--- NOTE | 2019-12-09 03:15 | NUR ---
CPAP MACHINE ALARMING. PT REMOVED MASK REPORTING SHE'S NOT ABLE TO SLEEP WITH IT ON. NC 2L PLACED.
--- NOTE | 2019-12-09 05:50 | NUR ---
AM LABS DRAWN. SCHEDULED MEDS ADMINISTERED PER EMAR. PRN ADMINISTERED FOR PAIN. VS AND I&O COMPLETE. PT CONTINUES TO REFUSE CPAP EVEN WITH ENCOURAGEMENT. O2 2L/NC IN PLACE. Sp02 96-98%. FRESH ICE WATER PROVIDED. NO FURTHER NEEDS. CALL LIGHT IN REACH.
--- NOTE | 2019-12-09 07:44 | NUR ---
PT APPEARS TO BE SLEEPING SOUNDLY. BEDSIDE REPORT RECEIVED
--- NOTE | 2019-12-09 09:18 | NUR ---
SPOKE WITH ALL SOURCE ANALYST AT [facility]. SHE STATES SHE CANNOT FIND WHERE THE CHART WAS SENT LAST WEEK. SHE IS REQUESTING RESEND.
--- NOTE | 2019-12-09 10:28 | NUR ---
CHART FAXED TO [facility], FAX CONFIRMATION RECEIVED @ [phone].
--- NOTE | 2019-12-09 10:29 | NUR ---
PATIENT IN BED RESTING COMFORTABLY, IN ROOM. CALL LIGHT IN REACH. NO FURTHER NEEDS AT THIS TIME.
--- NOTE | 2019-12-09 10:45 | NUR ---
SKIN FOLD AREAS CLEANSED AND POWDERED, PARTIAL BEDBATH PROVIDED, CATH CARE COMEPLETE. IS PRESENT IN THE ROOM. ASSISTED PT TO REPOSITION SEVERAL TIMES PER HER REQUEST. FRESH H20 AT BEDSIDE. BREAKFAST COMPLETE
--- NOTE | 2019-12-09 12:40 | NUR ---
SPOKE AT LENGTH WITH PATIENT AND IN ROOM REGARDING DISCHARGE. DISCUSSED TO REMIND THEM THAT [facility] CANNOT ACCEPT HER. DISCUSSED THAT [facility]. PATIENT WAS VERY LENGTHLY IN CONVERSATION REGARDING HOW SHE FEELS ABOUT AUGUSTINE BENFITS AND TREATMENT. AFTER SOME DISCUSSION AGAIN BROUGHT AROUND DISCUSSED REGARDING WHAT SHE WANTS AT DISCHARGE. PATIENT AGAIN HAD LENGTHY CONVERSATION REGARDING HISTORY OF HER MOM PASSING THERE. I WENT OVER OTHER OUT OF TOWN OPTIONS BUT SHE STATES SHE DOESN'T THINK SO BECAUSE IT WOULD MAKE IT HARD ON HER . I REMINDED THEM THERE ARE NO VISITORS ALLOWED AT ALL [facility] SKILLED FACILITIES. WE DID DISCUSS THAT PATIENTS CAN USE INTERNET OPTIONS OF COMMUNICATION. STATES HE WOULD LIKE HER HERE BECAUSE HE CAN TAKE DOGS AND GO TO A WINDOW AND SHE CAN SEE THEM. DISCUSSED AGAIN THAT CHART WAS SENT TO SEE IF THEY CAN ACCOMODATE HER. DISCUSSED THAT I WILL UPDATE THEM WHEN I HEAR. ALL QUESTIONS ANSWERED. CM WILL CONTINUE TO FOLLOW.
--- NOTE | 2019-12-09 13:02 | NUR ---
PT WORK WITH P/T AND IS NOW UP IN THE CHAIR. REMAINS IN THE ROOM
--- NOTE | 2019-12-09 14:08 | NUR ---
CONNECTED WITH PTS' OUTSIDE . HE'S BEEN FAITHFUL TO BE HERE JUST ABOUT EVERY DAY, SHARED THAT HE FEELS SHE IS IMPROVING. HE ADMITTED THAT IT HAS BEEN A "LONG HAUL" HERE,BUT FEELS PT IS TURNING A POSITIVE CORNER. PTS' USED THE WORD "HOPEFUL" WITH A SMILE. GAVE BLESSING WILL FOLLOW
--- NOTE | 2019-12-09 14:56 | NUR ---
PATIENT IN BED RESTING WITH EYES CLOSED. B\P HIGH, RN NOTIFIED. CALL LIGHT IN REACH. NO FURTHER NEEDS AT THIS TIME.
--- NOTE | 2019-12-09 15:00 | NUR ---
SPOKE WITH SEGMENTAL PAVER INSTALLER AT [facility]. SHE STATES NURSES ARE LOOKING AT AVAILABLE EQUIPMENT FOR NEEDS. SHE ALSO STATES THAT [employer] CALLED AND LET THEM KNOW THAT THEY GAVE PAPERWORK FOR TO FILL OUT FOR MEDICAID COVERAGE FOR CARE THAT MIGHT BE NEEDED AFTER MEDICARE BENEFITS ARE USED. SHE ASKS TO REMIND THEM TO GET THAT FILLED OUT AND SUBMITTED JOSE.
--- NOTE | 2019-12-09 16:21 | NUR ---
SPOKE WITH KULDIP BY PHONE. HE DOES HAVE PAPERWORK FROM [employer] AND WILL FILL IT OUT AND RETURN IT TOMORROW TO THEIR OFFICE.
--- NOTE | 2019-12-09 17:19 | NUR ---
REPOSITIONED PT AND FINISHED COMPLETE BEDBATH HEAD TO TOE. WELL TOLERATED. DR LOBATO IN TO SEE PT STATES SHE LOOKED AT HIM THEN CLOSED HER EYES, UNWILLING TO WAKE UP AND TALK TO HER. PT HAS RESTED EYES CLOSED SINCE THAT TIME. AWAKENED FOR BEDBATH ANSWERS QUESTIONS APPROPRIATELY NO C/O. CALL LIGHT IN REACH, FRESH H20 WITH LEMON AT BEDSIDE. PT REFUSES EVENING MEAL OFFERED SEVERAL LIGHT CHOICES INCLUDING ENSURE SHE DECLINES STATING SHE IS NOT HUNGRY.
--- NOTE | 2019-12-09 17:30 | NUR ---
PT SATS HAVE BEEN 96 AND 97% ON O2 2L ENTIRE SHIFT. TURNED 02 OFF WILL SPOT CHECK FOR TOLERANCE
--- NOTE | 2019-12-09 17:48 | NUR ---
SATS REMAIN AT 94% on RA. PULSE OX IN PLACE.
--- NOTE | 2019-12-09 17:54 | NUR ---
PATIENT IN BED WATCHING TV, IN ROOM. CALL LIGHT IN REACH. NO FURTHER NEEDS AT THIS TIME.
--- NOTE | 2019-12-09 19:30 | NUR ---
REPORT RECEIVED FROM DAY SHIFT RN. PT LYING IN BED WITH EYES CLOSED, OPENS EYES WHEN SPOKEN TO. SPOUSE IN ROOM. CPOX IN PLACE. SpO2 90-92% ON RA.DENIES NEEDS AT THIS TIME. WHITE BOARD UPDATED. CALL LIGHT IN REACH.
--- NOTE | 2019-12-09 20:18 | NUR ---
PT MOANING AND GRIMACING IN BED. PRN ADMINISTERED FOR LEFT LEG PAIN. ASSISTED TO REPOSITION. IV ABX INFUSING. FRESH ICE WATER PROVIDED.
--- NOTE | 2019-12-09 22:20 | NUR ---
ASSISTED PRIMARY RN CLEANED PATIENT'S LOWER ABDOMEN AND APPLIED POWDER. INEZ/DUKES CARE DONE.
--- NOTE | 2019-12-09 22:21 | NUR ---
EVENING ASSESSMENT COMPLETE. SCHEDULED MEDS ADMINISTERED PER EMAR. PT C/O BACK PAIN, REPOSITIONED FOR COMFORT. DUKES CATH CARE DONE. ABD FOLDS AND UNDER BREASTS CLEANED AND POWDER APPLIED. HEEL PROTECTORS IN PLACE. PT REMAINS ON RA. NO FURTHER NEEDS AT THIS TIME. CALL LIGHT IN REACH.
--- NOTE | 2019-12-10 00:35 | NUR ---
PT UNCOMFORTABLE AND COMPLAINING OF PAIN. SPENT >30 MIN REPOSITIONING PT WITH 3PA FOR COMFORT. PRN ADMINISTERED FOR PAIN. REFUSES CPAP AT THIS TIME. IV ABX INFUSING.
--- NOTE | 2019-12-10 01:39 | NUR ---
PT REPOSITIONED IN BED. CPAP ON AT THIS TIME.
--- NOTE | 2019-12-10 01:50 | NUR ---
PT PULLED MASK OFF "IT'S TOO HOT". RT CALLED TO ROOM TO ADJUST TEMP.
--- NOTE | 2019-12-10 02:00 | NUR ---
RT IN ROOM TO TURN OFF HEAT ON CPAP. CPAP FACE MASK ADJUSTED AND APPLIED.
--- NOTE | 2019-12-10 02:11 | NUR ---
PT PULLED CPAP MASK OFF. REFUSING TO WEAR CPAP AT THIS TIME EVEN WITH ENCOURAGEMENT. PT STATES "YOU ACT LIKE IT'S A CHOICE". EDUCATION PROVIDED. WILL TRY AT A LATER TIME.
--- NOTE | 2019-12-10 02:53 | NUR ---
PT RESTLESS AND PAINFUL. REPOSITIONED FOR COMFORT. WARM BLANKETS PROVIDED. PT DOES NOT WANT TO WEAR CPAP AT THIS TIME. CPOX IN PLACE. SpO2 93% ON RA. HR 70'S.
--- NOTE | 2019-12-10 03:59 | NUR ---
IV ABX HUNG. ENCOURAGED PT TO USE CPAP, PT REPLIED "NO".
--- NOTE | 2019-12-10 05:18 | NUR ---
PT CALLED, REQUESTED BLANKETS PLACED WELL CPAP. LIGHTS OFF, CPAP IN PLACE.
--- NOTE | 2019-12-10 05:38 | NUR ---
PT TOOK CPAP OFF, DOES NOT WANT TO WEAR IT.
--- NOTE | 2019-12-10 06:20 | NUR ---
SCHEDULED MEDS ADMINISTERED. PRN GIVEN FOR C/O BACK AND HIP PAIN. 2PA TO REPOSITION IN BED FOR COMFORT. BLISTER ON RIGHT HEEL OPENED, ALLEVYN PLACED. HEEL PROTECTORS IN PLACE.
--- NOTE | 2019-12-10 07:25 | NUR ---
PT RESTING EYES CLOSED, CPAP IN PLACE AT TIME OF REPORT. APPEARS COMFORTABLE.
--- NOTE | 2019-12-10 08:49 | NUR ---
INCYTE SWAB COLLECTED 0815 BY RT, NO ADVERSE REACTIONS NOTED
--- NOTE | 2019-12-10 09:47 | NUR ---
PT REPOSITIONED IN BED, RESTING NOW EATING SOME GRANOLA. JUICE PROVIDED OTHER FOOD ITEMS OFFERED. PT ALERT AND ANSWERING QUESTIONS APPROPRIATELY, MAKES CONVERSATION, MOOD APPEARS CHEERFUL. ENCOURAGED PT TO INTERACT WITH MD WHO WILL MAKE ROUNDS SOON AND EXPRESS ANY NEEDS. SHE VERBALIZES UNDERSTANDING
--- NOTE | 2019-12-10 10:02 | NUR ---
PATIENT IN BED WATCHING TV. CALL LIGHT IN REACH. NO FURTHER NEEDS AT THIS TIME.
--- NOTE | 2019-12-10 10:20 | NUR ---
Spoke with Juanita from [facility]. She is awaiting confirmation from [facility] pt is appropriate for usp medicaid payment. When she received confirmation, they will accept pt. Called Juanita at [facility] and left message. Called pt's spouse, Franki. He has been in contact with [facility]. He has the paperwork and needs to complete and return to Juanita at [facility]. He states he will do this on his lunch break. He is wanting to know what the plan is. UPdated, Beth is awaiting confirmation from [facility] and they cannot confirm until they have his paperwork.
--- NOTE | 2019-12-10 11:02 | NUR ---
PT WORKS WITH P/T THEN TO THE CHAIR. H20 FRESHENED CALL LIGHT IN HAND. PT AGREES SHE IS COMFORTABLE
--- NOTE | 2019-12-10 11:56 | NUR ---
PT UP IN THE CHAIR APPEARS DROWSY. ENCOURAGED CPAP IF GOING TO NAP. SHE REFFUSES. SOON AFTER PULSE OX ALARMS SATS AT 77% PT SLEEPING SOUNDLY. AWAKENED AND ENCOURAGED TO DEEP BREATH, CPAP APPLIED. SATS QUICKLY RECOVER TO MID 90'S PT GOES ON TO NAP SOUNDLY.
--- NOTE | 2019-12-10 12:11 | NUR ---
PT CONTINUES UP IN THE CHAIR. DR LOBATO IN TO SEE HER, SHE IS INTERACTIVE. HE ASKS ABOUT PAIN HER RESPONSE IS R/T CPAP HURTING UNDER HER EYE SOCKET. SHE STATES IF HE COULD CHANGE ONE THING IT WOULD BE R/T TO THIS DISCOMFORT. SHE GOES ON TO DESCRIBE DETAIL, DR LOBATO HEARS HER OUT SUGGESTS INTERVENTIONS. ALL QUESTIONS ANSWERED. PLAN OF CARE DISCUSSED.
--- NOTE | 2019-12-10 13:32 | NUR ---
PT OUT OF BED, SITTING IN CHAIR, TV ON. PT SEEMS MORE ALERT, ORIENTED AND ABLE TO CARRY ON CONVERSATION. PT MISSES , GAVE COMFORT. PT SEEMS THANKFUL FOR MY VISIT. GAVE BLESSING, LEFT G.POST. WILL FOLLOW
--- NOTE | 2019-12-10 13:46 | NUR ---
PATIENT SITTING IN CHAIR WATCHING TV. REPOSITIONED PATIENT BY PUTTING PILLOWS UNDER BOTH SHOULDERS. FRESH WATER GIVEN. CALL LIGHT IN REACH. NO FURTHER NEEDS AT THIS TIME.
--- NOTE | 2019-12-10 14:38 | NUR ---
Attempted to call Juanita at [facility], second message left asking if they have received paperwork from spouse.
--- NOTE | 2019-12-10 14:40 | NUR ---
Call from Juanita. She feels pt will qualify for Medicaid. She spoke with spouse and he will deliver papers later this afternoon. She is wanting to know when pt will admit to [facility], updated possibly tomorrow. [facility] will need to order a bariatric bed and are awaiting notice that medicaid is in the works. Informed I will call her tomorrow and follow up. Called and spoke with Juanita. She will order the bed in the am if DHS feels pt will qualify.
--- NOTE | 2019-12-10 14:55 | NUR ---
ASSISTED PT BACK TO BED VIA CHOLO BED BATH GIVEN SKIN FOLD AREAS POWDERED. PERSONAL CARE ITEMS PROVIDED PT DECLINES ORAL CARE.
--- NOTE | 2019-12-10 16:20 | NUR ---
PT IN TO VISIT. PT REPOSITIONED, TOOK SEVERAL TIMES USING CHOLO TO GET HER COMFORTABLE. PICC LINE DRESSING CHANGED, TOLERATED WELL.
--- NOTE | 2019-12-10 18:55 | NUR ---
PATIENT TRANSFERED TO BED FROM CHOLO CARDONA 3PA. INEZ CARE DONE. NEW LINENS AND CHUCKS IN PLACE. CALL LIGHT IN REACH. NO FURTHER NEEDS AT THIS TIME. REPOSITIONED ONTO LEFT SIDE WITH PILLOW UNDER RIGHT SIDE.
--- NOTE | 2019-12-10 21:52 | PATH ---
[facility] [address] [place], [place] [address] Signed ORDERING PHYSICIAN: Adriana Lazcano MD PATIENT NAME: RONY CORREIA RAE GENDER: F : 1960 SPECIMEN(S): CLINICAL HISTORY: Routine Pap Smear MOLECULAR PATHOLOGY RESULTS: SARS-CoV-2 Not Detected ADDITIONAL NOTES.: The [place] Fusion SARS-CoV-2 Assay is a multiplex real-time PCR (RT-PCR) in vitro diagnostic test intended for the qualitative detection of RNA from SARS-CoV-2 from individuals who meet COVID-19 clinical and/or epidemiological criteria. In general, SARS-CoV-2 RNA can be detected during the acute phase of infection. Positive results indicate the presence of SARS-CoV-2 RNA. Clinical correlation with patient history and other diagnostic information is necessary to determine patient infection status. Positive results do not rule out bacterial infection or co-infection with other viruses. Negative results do not preclude SARS-CoV-2 infection and should not be used as the sole basis for patient management decisions. Negative results must be combined with other clinical observations, patient history, and epidemiological information. The [place] Fusion SARS-CoV-2 Assay is not yet approved or cleared by the [place] FDA. When there are no FDA-approved or cleared tests available, and other criteria are met, FDA can make tests available under an emergency access mechanism called an Emergency Use Authorization (EUA). The EUA for this test is supported by the [place] of Health and Human Service's (HHS's) declaration that circumstances exist to justify the emergency use of in vitro diagnostics for the detection and/or diagnosis of the virus that causes COVID-19. This EUA will remain in effect for the duration of the COVID-19 declaration justifying emergency of IVDs, unless it is terminated or revoked by FDA, after which the test may no longer be used. The [place] Fusion SARS-CoV-2 Assay is for use only under EUA in US laboratories certified under the Clinical Laboratory Improvement PATIENT NAME: RONY CORREIA KANDI PATHOLOGY DATE OF : 64 REPORT #: [id number] PHYSICIAN: BRIANNA FOSTER PCP: ROSITA GRANT REPORT IS CONFIDENTIAL AND NOT TO BE RELEASED WITHOUT AUTHORIZATION [address] [address] Signed Amendments of 1988 (CLIA) to perform high complexity tests. [facility] is certified under CLIA to perform high complexity clinical laboratory testing. PERFORMING LABORATORY.: Molecular testing was performed by [facility] [address] [place], [place] [address] [address] (Store Assistant: Deven Corey D.O.; CLIA#: [id number]) Diagnostician: System Interface Pathologist Electronically Signed 12/10/2019 Copies: ~ PATIENT NAME: RONY CORREIA KANDI PATHOLOGY DATE OF : 64 REPORT #: [id number] PHYSICIAN: BRIANNA FOSTER PCP: ROSITA GRANT REPORT IS CONFIDENTIAL AND NOT TO BE RELEASED WITHOUT AUTHORIZATION
--- NOTE | 2019-12-10 22:38 | NUR ---
PATIENT IN BED WATCHING TV, WANT READJUSTED IN BED A BIT FOR COMFORT AND WAS TURNED TO THE RIGHT. CALL LIGHT AND WATER IN REACH.
--- NOTE | 2019-12-10 22:39 | NUR ---
PATIENT AWAKE WATCHING TV NO NEEDS AT THIS TIME. CALL LIGHT IN REACH.
--- NOTE | 2019-12-11 00:30 | NUR ---
PATIENT RESTING QUIETLY, RESPIRATIONS SLIGHTLY LABORED, BUT PATIENT DID NOT WANT TO WEAR CPAP. SATS 91% ON RA AND HR=74. EYES CLOSED AND CALL LIGHT IN REACH.
--- NOTE | 2019-12-11 02:20 | NUR ---
PATIENT HAS TAKEN THE CPAP OFF AND DOES NOT WANT TO WEAR IT ANYMORE. SATS 91% ON ROOM AIR, PATIENT GOING TO SLEEP. CALL LIGHT IN REACH.
--- NOTE | 2019-12-11 04:40 | NUR ---
PATIENT HAS DOSED ON AND OFF THROUGH THE NIGHT, REPOSITIONED WITH CHOLO FOR COMFORT. PATIENT DID PICKED HER NOSE AND BLOODIED IT, NOSE BLEED STOPPED AND HANDS AND FACE CLEANED UP. PATIENT'S PAIN HAS BEEN FAIRLY CONTROLLED, AND NO MEDS WERE GIVEN FOR DISCOMFORT. PATIENT IS ORIENTED, BUT SLOW TO RESPOND TO QUESTIONS AT TIMES. PATIENT TRIED THE CPAP FOR OVER AN HOUR WITH 2L/O2 BLEED IN AND FINALLY TOOK IT OFF AND WOULD NOT PUT IT BACK ON THE REST OF THE NIGHT AND HAS MAINTANED O2 SAT OF 91-93% ON ROOM AIR. CALL LIGHT IN REACH.
--- NOTE | 2019-12-11 07:10 | NUR ---
Recieved bedside report from LUKE Connell. This nurse introduces self to patient. Patient requests sprite at this time. Diet lemon yavapai-prescott pop given to to patient with ice. Denies other needs at this time.
--- NOTE | 2019-12-11 08:46 | NUR ---
Received voice message from Franki, he would like an update. Returned call and left a message I am waiting to call Rena at [facility] till 9 am when she us available.
--- NOTE | 2019-12-11 08:57 | NUR ---
GAVE PATIENT HIBBICLENS WIPE DOWN. BRUSHED HAIR AND READY FOR 1100 SURGERY. WHITE BOARD UPDATED. CLOTH GIVEN FOR FACE AND HANDS. CALL LIGHT WITHIN REACH. NO FURTHER NEEDS AT THIS TIME.
--- NOTE | 2019-12-11 09:05 | NUR ---
GOT PATIENT A WARM BLANKET AND WASH CLOTH. WHITE BOARD UPDATED. CALL LIGHT WITHIN REACH. NO FURTHER NEEDS AT THIS TIME.
--- NOTE | 2019-12-11 09:06 | NUR ---
Assessment completed. States she is having a bowel movement at this time time, but is not quite finished. Informed this nurse will need to obtain help to change pads and provide scooby-care. Verbalizes understanding. Takes AM medications without diffcilty. Call light in reach. Be rails elevated.
--- NOTE | 2019-12-11 09:12 | NUR ---
Called and spoke with Juanita, worker of the day at [facility]. Paperwork for medicare was completed and she feels pt will qualify. Called Juanita at [facility] and she states they will accept. She is requesting orders. Informed I have printed the orders and given to Dr. Lazcano. She is seeing pts and I will fax to [facility] as soon as they are complete.
[2019-12-11] MEDS ORDERED: CARVEDILOL6.25 MG PO (10:08)
[2019-12-11] MEDS ORDERED: ACETAMINOPHEN500 MG PO (10:08)
[2019-12-11] MEDS ORDERED: POLYETHYLENE GL17 GM PO (10:09)
[2019-12-11] MEDS ORDERED: HUMALOG100 UNITS/ SUB-Q (10:10)
--- NOTE | 2019-12-11 10:50 | NUR ---
PATIENT WAS INCONT. OF STOOL, ASSISTED RN AND OTHER WRAP KNITTING MACHINE OPERATOR IN CLEAN UP. NEW CHOLO SLING PLACED UNDER PATIENT WELL.
--- NOTE | 2019-12-11 11:08 | NUR ---
FULL STAFF ASSIST WITH BM CLEAN UP/ SLING CHANGE. INEZ CARE AND COLD SODA GIVEN. CALL LIGHT WITHIN REACH. NO FURTHER NEEDS AT THIS TIME. GIVING PATIENT TIME TO RECOVER BEFORE VITALS. CALL LIGHT WITHIN REACH. NO FURTHER NEEDS AT THIS TIME.
--- NOTE | 2019-12-11 11:17 | NUR ---
AFTER CLEANING PATIENT UP IN BED SHE INFORMED ME THE MALE TAKING CARE OF HER LAST NIGHT WAS RUDE TO HER. PATIENT STATED "HE CAME IN HERE AND I ASKED TO BE TURNED IN BED AND HE SAID 'WHY DOES IT MATTER ANYWAY YOU'RE BEDBOUND.' LATER I ASKED HIM FOR MORE BLANKETS AND HE SAID I DIDN'T NEED THEM. HE JUST MADE ME FEEL REALLY BAD. I DON'T FEEL LIKE IT WAS FAIR." SHE SAID SHE WASN'T SURE OF HIS NAME BUT THAT HE WAS HERE ALL NIGHT. I INFORMED HER THAT I WOULD BE TELLING THE CHARGE NURSE AND NOTING IT, SHE APPROVED. LUKE DESIR AND LUKE REID BOTH NOTIFIED OF INCIDENT.
--- NOTE | 2019-12-11 11:34 | NUR ---
Orders faxed to [facility]. Per Juanita, bed will arrive at 3pm. Will request ambulance transport at 3:30pm as pt is unable to walk and needs danna lift. Called and updated Franki. He states concern pt is not aware there is not visit for any family. Informed she is aware as I have already discussed with her, but I will again discuss with her. Also informed he may receive a bill for ambulance transport as there is no guarantee medicare will pay. He states understanding and we discuss pt is not safe to transport per arlen espinoza.
--- NOTE | 2019-12-11 12:29 | NUR ---
Lying in bed with head of bed slightly elevated. Takes PO medications without difficulty. Denies pain at this time. Call light in reach. Bed rails up X4, bariatric bed.
--- NOTE | 2019-12-11 13:30 | NUR ---
Call from Jasmyne at [facility] requesting update. Update completed and let her know, pt will dc to [facility] at 1530.
--- NOTE | 2019-12-11 13:50 | NUR ---
IVAN CHEW WASHED PATIENTS HAIR WITH SHAMPOO CAP, THIS EYEGLASS LENS GENERATOR ATTEMPTED TO BRUSH IT OUT, THE BACK OF HER HEAD IS COMPLETELY MATTED TOGETHER.
--- NOTE | 2019-12-11 13:55 | NUR ---
Patient states she is feeling short of breath. Pulse ox reading 92% on room air. Lungs sounds clear to auscultation bilaterally. Patient then states "I think I'm just worried." Informed her to notify staff if she continues to feel short of breath.
--- NOTE | 2019-12-11 15:15 | NUR ---
Report called to LUKE Jo at [facility].
--- NOTE | 2019-12-11 15:27 | NUR ---
PATIENT IS RESTING IN BED WAITNG FOR TRANSPORT FOR DISCHARGE. CALL LIGHT WITHIN REACH. LAST VITALS OBTAINED. ALL THINGS PACKED AND READY. NO FURTHER NEEDS AT THIS TIME.
--- NOTE | 2019-12-11 15:44 | NUR ---
PATIENTS LAST VITALS SHOWED A BP OF 168/96. TOOK THREE TIMES AND NOTIFIED LUKE REID.
== END 2019-12-11 15:37 | DRG 871 ==
LOC: ED 16:37 → CCU 19:07 → MS 19:07 → CCU 11-30 16:20 → MS 12-03 15:15 → CCU 12-03 15:16 → MS 12-03 16:25
PROVIDERS: ADMIT Internal Medicine
PROC: 5A09357 Assistance with Respiratory Ventilation, Less than 24 Consecutive Hours, Continuous Positive Airway Pressure (ICD-10-PCS; 2019-12-03)
PROC: 02HV33Z Insertion of Infusion Device into Superior Vena Cava, Percutaneous Approach (ICD-10-PCS; principal; 2019-12-03 10:30)
DX: A40.8 Other streptococcal sepsis (principal); G93.41 Metabolic encephalopathy; L03.116 Cellulitis of left lower limb; N17.9 Acute kidney failure, unspecified; E66.2 Morbid (severe) obesity with alveolar hypoventilation; Z68.44 Body mass index [BMI] 60.0-69.9, adult; Z20.828 Contact with and (suspected) exposure to other viral communicable diseases; R65.20 Severe sepsis without septic shock; E11.40 Type 2 diabetes mellitus with diabetic neuropathy, unspecified; E83.42 Hypomagnesemia; R79.89 Other specified abnormal findings of blood chemistry; I10 Essential (primary) hypertension; E03.9 Hypothyroidism, unspecified; G89.4 Chronic pain syndrome; E78.5 Hyperlipidemia, unspecified; B35.4 Tinea corporis; R74.8 Abnormal levels of other serum enzymes; E87.5 Hyperkalemia; R29.6 Repeated falls; I27.20 Pulmonary hypertension, unspecified; L89.619 Pressure ulcer of right heel, unspecified stage; Z88.8 Allergy status to other drugs, medicaments and biological substances; Z79.899 Other long term (current) drug therapy; Z79.84 Long term (current) use of oral hypoglycemic drugs; Z79.82 Long term (current) use of aspirin; Z79.891 Long term (current) use of opiate analgesic
CPT/HCPCS: 36415; 36569; 51702; 71045; 73560; 76705; 80048; 80053; 81001; 82306; 82550; 82570; 82803; 82977; 83036; 83605; 83690; 83735; 83880; 84075; 84080; 84300; 84484; 84540; 85025; 87040; 87077; 87147; 87186; 93005; 93010; 93306; 93971; 94660; 94760; 94762; 97110; 97163; 97530; 99285-25; A9270; C1751; C9803; J0290; J0878; J1650; J1815; J1940; J2270; J2543; J3475; J7030; J7121

== ENCOUNTER 2019-12-29 09:29 | Emergency (ER) | payer MEDICARE, OTHER ==
[~2019-12-29] VITALS: Ht 264.2 cm; Wt 163.3 kg
--- OUTSIDE RECORDS SUMMARY | ~2019-12-29 | XMS | Encounter Summary ---
Demographics + + + | Address | [address] | | | [place] [address] | + + + | Home Phone | | + + + | Preferred Language | Unknown | + + + | Marital Status | | + + + | Tenriism Affiliation | Unknown | + + + | Race | or | + + + | Ethnic Group | Not or | + + + Author + + + | Author | [facility] | | | and [place] | + + + | Organization | [facility] | | | and [place] | + + + | Address | Unknown | + + + | Phone | Unavailable | + + + Support + + +---------+ + | Name | Relationship | Address | Phone | + + +---------+ + | Harshil Mckay | ECON | Unknown | | + + +---------+ + Care Team Providers + +------+ + | Care Negative Turner Apprentice Name | Role | Phone | + [...] | +--------+ + + + + | 11/06/ | Home Care | [facility] | Shoshana Caldwell, | SN REPEAT VISIT | | 2019 | Visit | [address] | RN | | | | | [address] [place] | | | | | | [address] | | | | | | [phone] | | | +--------+ + + + [...] + + documented as of this encounter Last Filed Vital Signs + + + + + | Vital Sign | Reading | Time Taken | Comments | + + + + + | Blood Pressure | 130/70 | 11/07/2019 11:21 AM | | | | | PDT | | + + + + + | Pulse | 88 | 11/07/2019 11:21 AM | | | | | PDT | | + + + + + | Temperature | 36.1 C (97 F) | 11/07/2019 11:21 AM | | | | | PDT | | + + + + + | Respiratory Rate | 16 | 11/07/2019 11:21 AM | | | | | PDT | | + + + + + | Oxygen Saturation | 95% | 11/07/2019 11:21 AM | | | | | PDT | | + + + + + | Inhaled Oxygen | - | - | | | Concentration | | | | + + + + + | Weight | - | - | | + + + + + | Height | - | - | | + + + + + | Body Mass Index | - | - | | + + + + + documented in this encounter Functional Status + + + [...] + + documented as of this encounter Miscellaneous Notes Home Health - Shoshana Caldwell RN - 11/07/2019 11:01 AM PDT1) Are you or anyone you live with experiencing any of the following symptoms? no Fever Cough - New or changed Shortness of breath or difficulty breathing- New or changed Chills Repeated shaking with chills Muscle pain- New onset Headache Sore throat New loss of taste or smell 2) If yes, who is experiencing symptoms? 3) Have you or anyone in your household been tested and have results pending or have been d iagnosed with COVID-19? No 4) If visiting a health care facility, is the facility experiencing a COVID-19 outbreak? No 5) Have you had close contact with someone tested for or diagnosed with COVID-19 in the las t 30 days? No 6) Have you or anyone you have had close contact with traveled outside of your state in the last 30 days? No Screening is: Negative Clinician prompt: Per CDC Guidelines, positive screen for countries that have a Level 3 Travel Health Notice: [place]: [place], [place], [place] ([facility]): [place], [place], [place], [place], [place], [place], [place] , [place], [place], [place], [place], [place], [place], [place], [place], [place], [place], [place], [place], [place], [place], [place], [place], [place], [place], [place], [place], [place], [facility] [place] and [place]: [place], [place], [place], [place], [place] Indicate positive screen if: Answer to any question 1-5 is yes or answer to question 6 indicates travel to a Level 3 anam tination. Consult with manager small business prior to visit. S. Pt with recent hospitalization for sepsis fro UTI B Pt has history of morbid obesity, Depression, Diabetes A Pt is doing a little better, and is able to walk a little further, but continues with SO B and chronic bilateral knee pain. Pt had a pressure ulcer to inner upper R thigh, and now h as many open areas with redness under panis and on L thigh. Foam dressings applied but pt is going to have chronic issues with hthis in this hot weather and that pt sits all day long and no air is getting to these areas. RN instructed on pressure relief, that panis causes pressure sores where it continually rests. Ins pt needs to lay down several times per day t o off set pressure and allow air to get in. RN to see pt weekly for wound assessElectronically signed by Shoshana Caldwell RN at 2019 3:16 PM PDTdocumented in this encounter Plan of Treatment +--------+---------+ + + + | Date | Type | Specialty | Care Team | Description | +--------+---------+ + + + | 01/22/ | Office | Cardiology | Zuhair Lee | | 2019 | Visit | | MD Walker [address] | | | | | | [address] [facility] | | | | | | [place] [address] | | | | | | [phone] | | | | | | | | +--------+---------+ + + + documented as of this encounter Visit Diagnoses Not on filedocumented in this encounter Home Health Visit - Care Plan + + | Visit Type - SN - REPEAT VISIT | | Discipline - Intermediate | + + + + +--------+--------+ + + | Problem | Description | Start | Status | Goals | Interventio | | | | Date | | | ns | + + +--------+--------+ + + | Diabetes | Diabetes | | | 1 goal | 1 goal | | Disciplines: | | 10/24/19 | Active | linked to | interventio | | Intermediate | | 20 | | scheduled/d | n | | | | | | ocumented | scheduled/d | | | | | | interventio | ocumented | | | | | | n | in this | | | | | | | visit | + + +--------+--------+ + + | HH SHARED AT RISK | At risk for | | | 1 goal | 1 goal | | FOR PRESSURE ULCER | pressure ulcer | 10/24/19 | Active | linked to | interventio | | Disciplines: | | 20 | | scheduled/d | n | | Intermediate | | | | ocumented | scheduled/d | | | | | | interventio | ocumented | | | | | | n | in this | | | | | | | visit | + + +--------+--------+ + + | HH SHARED | Depression | | | 1 goal | 1 goal | | DEPRESSION | | 10/24/19 | Active | linked to | interventio | | Disciplines: | | 20 | | scheduled/d | n | | Intermediate | | | | ocumented | scheduled/d | | | | | | interventio | ocumented | | | | | | n | in this | | | | | | | visit | + + +--------+--------+ + + | HH SHARED DIABETIC | Diabetic foot care | | | 1 goal | 1 goal | | FOOT CARE | | 10/24/19 | Active | linked to | interventio | | Disciplines: | | 20 | | scheduled/d | n | | Intermediate | | | | ocumented | scheduled/d | | | | | | interventio | ocumented | | | | | | n | in this | | | | | | | visit | + + +--------+--------+ + + | HH SHARED PAIN | Pain | | | 1 goal | 1 goal | | Disciplines: | | 10/24/19 | Active | linked to | interventio | | Intermediate | | 20 | | scheduled/d | n | | | | | | ocumented | scheduled/d | | | | | | interventio | ocumented | | | | | | n | in this | | | | | | | visit | + + +--------+--------+ + + | HH SN Medication | Medication | | | 1 goal | 1 goal | | Management | Management | 10/24/19 | Active | linked to | interventio | | Disciplines: | | 20 | | scheduled/d | n | | Intermediate | | | | ocumented | scheduled/d | | | | | | interventio | ocumented | | | | | | n | in this | | | | | | | visit | + + +--------+--------+ + + | Knowledge Deficit, | | | | - | 1 problem | | Education, | | 10/24/19 | Active | | | | Discharge Plan | | 20 | | | interventio | | Disciplines: | | | | | n | | Intermediate | | | | | scheduled/d | | | | | | | ocumented | | | | | | | in this | | | | | | | visit | + + +--------+--------+ + + | Wound Management | Wound Management | | | 1 goal | 2 goal | | Disciplines: | | 10/24/19 | Active | linked to | interventio | | Intermediate | | 20 | | scheduled/d | ns | | | | | | ocumented | scheduled/d | | | | | | interventio | ocumented | | | | | | n | in this | | | | | | | visit | + + +--------+--------+ + + + + +--------+-------+ + | Goal | Associated Problem | Outcom | Goal | Visit Notes | | | | e | Met? | | + + +--------+-------+ + | HH SN DIABETES | Diabetes | | No | | | Description: The | | | | | | patient and/or | | | | | | caregiver will | | | | | | verbalize | | | | | | understanding of the | | | | | | symptoms and follow | | | | | | up of blood sugar | | | | | | abnormalities by end | | | | | | of RN episode of | | | | | | care. The patient | | | | | | and/or caregiver | | | | | | will be independent | | | | | | in blood glucose | | | | | | monitoring/recording | | | | | | by end of RN | | | | | | episode of care. | | | | | + + +--------+-------+ + | Wound pressure | HH SHARED AT RISK | | No | | | ulcer Description: | FOR PRESSURE ULCER | | | | | The patient | | | | | | and/or caregiver | | | | | | will verbalize | | | | | | understanding of | | | | | | techniques/strategie | | | | | | s to prevent | | | | | | pressure ulcers/skin | | | | | | breakdown. The | | | | | | patient's skin will | | | | | | remain free of | | | | | | pressure ulcers/skin | | | | | | breakdown. | | | | | + + +--------+-------+ + | HH DEPRESSION | HH SHARED | | No | | | UNDERSTANDING | DEPRESSION | | | | | Description: The | | | | | | patient and/or | | | | | | caregiver will | | | | | | verbalize | | | | | | understanding of | | | | | | general measures to | | | | | | manage depression. | | | | | + + +--------+-------+ + | HH SN ALTERATION | HH SHARED DIABETIC | | No | | | IN COMFORT | FOOT CARE | | | | | Description: The | | | | | | patient and/or | | | | | | caregiver will | | | | | | verbalize | | | | | | understanding of | | | | | | proper diabetic foot | | | | | | care. The | | | | | | patient's feet will | | | | | | remain absent of new | | | | | | or worsening skin | | | | | | complications | | | | | | related to diabetes. | | | | | | | | | | | + + +--------+-------+ + | HH PAIN | HH SHARED PAIN | | No | | | Description: The | | | | | | patient will rate | | | | | | chronic hip and back | | | | | | pain at 3/10 or | | | | | | less. Outcomes: | | | | | | The patient will be | | | | | | able to manage at | | | | | | home with decreased | | | | | | symptoms of pain. | | | | | + + +--------+-------+ + | HH SN MEDICATION | HH SN Medication | | No | | | MANAGEMENT | Management | | | | | Description: | | | | | | Patient and/or | | | | | | caregiver will | | | | | | verbalize | | | | | | understanding of | | | | | | medication use, | | | | | | actions, side | | | | | | effects, and when to | | | | | | report to skilled | | | | | | nurse/physician by | | | | | | end of episode of | | | | | | care. Patient | | | | | | and/or caregiver | | | | | | will be able to | | | | | | administer | | | | | | medications per | | | | | | instructions/directi | | | | | | ons by end of | | | | | | episode of care. | | | | | + + +--------+-------+ + | HH SN WOUND | Wound Management | | No | | | MANAGEMENT | | | | | | Description: | | | | | | Achieve clean and | | | | | | stable open wound | | | | | | throughout episode. | | | | | + + +--------+-------+ + + + +--------+--------+ + | Intervention | Associated | Status | Varian | Visit Notes | | | Problem/Goal | | ce | | + + +--------+--------+ + | Instruct diet | Problem: Diabetes | | | Instructed patient on | | Description: | Goal: HH SN DIABETES | Comple | | low sugar diet and fluid | | Instruct patient | | nellie | | | | and/or caregiver in | | | | restrictions/requirement | | diabetic diet. | | | | s. The patient and/or | | | | | | caregiver verbalized | | | | | | understanding of | | | | | | instruction: Yes | + + +--------+--------+ + | Instruct in Skin | Problem: HH SHARED | | | | | Breakdown Prevention | AT RISK FOR PRESSURE | Comple | | | | Description: | ULCERGoal: Wound | nellie | | | | Instruct the patient | pressure ulcer | | | | | and/or caregiver in | | | | | | | | | | | | techniques/strategie | | | | | | s to prevent and/or | | | | | | reduce the risk of | | | | | | pressure ulcers and/ | | | | | | or skin breakdown. | | | | | + + +--------+--------+ + | Instruct in | Problem: SHARED | | | | | Depression | DEPRESSIONGoal: | Comple | | | | Management | DEPRESSION | nellie | | | | Description: | UNDERSTANDING | | | | | Instruct the patient | | | | | | and/or caregiver in | | | | | | general measures to | | | | | | manage depression. | | | | | + + +--------+--------+ + | Diabetic Foot | Problem: SHARED | | | | | Assessment | DIABETIC FOOT | Comple | | | | Description: | CAREGoal: SN | nellie | | | | Assess lower | ALTERATION IN | | | | | extremities for | COMFORT | | | | | lesions/skin | | | | | | integrity, instruct | | | | | | patient and/or | | | | | | caregiver in proper | | | | | | diabetic foot care, | | | | | | and provide written | | | | | | information | | | | | | regarding diabetic | | | | | | foot care. | | | | | + + +--------+--------+ + | Monitor and | Problem: SHARED | | | | | Address Pain | PAINGoal: PAIN | Comple | | | | Description: | | nellie | | | | Monitor and address | | | | | | pain through End of | | | | | | Episode of care. | | | | | + + +--------+--------+ + | Assess knowledge | Problem: SN | | | | | of meds | Medication | Comple | | | | Description: | ManagementGoal: | nellie | | | | Assess the patient | SN MEDICATION | | | | | and/or caregiver's | MANAGEMENT | | | | | knowledge of | | | | | | medication | | | | | | administration, | | | | | | purpose, dosages, | | | | | | scheduling, side | | | | | | effects, food/drug | | | | | | interactions, and | | | | | | potential | | | | | | complications. | | | | | + + +--------+--------+ + | Discharge planning | Problem: Knowledge | | | | | Description: | Deficit, Education, | Comple | | | | Assess if the | Discharge Plan | nellie | | | | established | | | | | | discharge plan is | | | | | | still agreeable with | | | | | | the | | | | | | patient/caregiver/fa | | | | | | clarence/PCP or if a new | | | | | | discharge plan | | | | | | needs to be | | | | | | discussed and put in | | | | | | place. If patient | | | | | | is considering a | | | | | | higher level of care | | | | | | OR moving to a new | | | | | | home health agency, | | | | | | patient educated to | | | | | | the receiving | | | | | | facility's quality | | | | | | scores located in | | | | | | SOC packet. | | | | | + + +--------+--------+ + | HH Measure Wound | Problem: Wound | | | | | Description: | ManagementGoal: HH | Comple | | | | Measure wound | SN WOUND MANAGEMENT | nellie | | | | weekly. | | | | | + + +--------+--------+ + | Wound care | Problem: Wound | | | Wounds cleansed with | | Description: | ManagementGoal: HH | Comple | | wound cleanser, foam | | Cleanse RT inner | SN WOUND MANAGEMENT | nellie | | adhesive applied. Inst | | thigh, Lower level | | | | pt to leave in place and | | of panis, L inner | | | | keep clean and dry. | | thigh with wound | | | | Most ulcerations are | | cleanser and dry. | | | | caused from hanging | | Apply foam adhesive | | | | panis and sitting all | | to all open areas, | | | | the time. | | and use sacral | | | | | | dressing to cover | | | | | | more area. RN to | | | | | | change dressing | | | | | | weekly and | | | | | | to change prn. | | | | | | Dressing to stay on | | | | | | x 1 week if | | | | | | Possible. | | | | | + + +--------+--------+ + documented in this encounter"
--- OUTSIDE RECORDS SUMMARY | ~2019-12-29 | XMS | Clinical Summary ---
Demographics + + + | Address | [address] | | | [place] [address] | + + + | Home Phone | | + + + | Preferred Language | Unknown | + + + | Marital Status | Unknown | + + + | Quaker Affiliation | Unknown | + + + | Race | Unknown | + + + | Ethnic Group | Unknown | + + + Author + + + | Author | [facility] | + + + | Organization | [facility] | + + + | Address | Unknown | + + + | Phone | Unavailable | + + + Care Team Providers + +------+ + | Care Tugboat Mate Name | Role | Phone | + +------+ + PCP | Unavailable | + +------+ + Source Comments MONICA is fully live on both [facility] and [facility] InPatient.[facility] Allergies Not on File Medications Not on file Active Problems Not on file Encounters +--------+--------+ + + + | Date | Type | Specialty | Care Team | Description | +--------+--------+ + + + | 12/16/ | Intake | | | | | 2020 | | | | | +--------+--------+ + + + from Last 3 Months Social History + +-------+ +--------+------+ | Tobacco Use | Types | Packs/Day | Years | Date | | | | | Used | | + +-------+ +--------+------+ | Never Assessed | | | | | + +-------+ +--------+------+ + + + | Sex Assigned at | Date Recorded | | | | + + + | Not on file | | + + + Last Filed Vital Signs Not on file Plan of Treatment + + +-------+ + | Health Maintenance | Due Date | Last | Comments | | | | Done | | + + +-------+ + | Influenza (Flu) | | | | | vaccination (#1) | 0 | | | + + +-------+ + | Pneumococcal | Aged Out | | No longer eligible based on patient's age | | vaccination | | | to complete this topic | + + +-------+ + Results Not on filefrom Last 3 Months"
--- OUTSIDE RECORDS SUMMARY | ~2019-12-29 | XMS | Encounter Summary ---
Demographics + + + | Address | [address] | | | [place] [address] | + + + | Home Phone | | + + + | Preferred Language | Unknown | + + + | Marital Status | | + + + | Faith Affiliation | Unknown | + + + | Race | or | + + + | Ethnic Group | Not or | + + + Author + + + | Author | [facility] | | | and [place] | + + + | Organization | [facility] | | | [...] Team Providers + +------+ + | Care Bodywork Therapist Name | Role | Phone | + +------+ + | Mell Bautista | PCP | | + +------+ + Encounter Details +--------+ + + + + | Date | Type | Department | Care Team | Description | +--------+ + + + + | 10/21/ | Imaging | [facility] | Provider, | | | 2020 | Exam | [facility] | [address] | | | | | IMAGING [address] | | | | | [address] | [place] [address] | | | | | [place] [address] | | | | | | [phone] | | | +--------+ + + + [...] as of this encounter Plan of Treatment +--------+---------+ + + + | Date | Type | Specialty | Care Team | Description | +--------+---------+ + + + | 01/22/ | Office | Cardiology | Zeb Leer | | | 2019 | Visit | | MD Walker [address] | | | | | | [address] [place] | | | | | | [place] [address] | | | | | | [phone] | | | | | | | | +--------+---------+ + + + documented as of this encounter Procedures + +--------+ + + + | Procedure Name | Priori | Date/Time | Associated Diagnosis | Comments | | | ty | | | | + +--------+ + + + | CT ABDOMEN PELVIS WO | Routin | 10/12/2019 | | Results for this | | CONTRAST | e | 12:05 AM | | procedure are in the | | | | PDT | | results section. | + +--------+ + + + documented in this encounter Results CT Abdomen Pelvis wo Contrast (10/12/2019 12:05 AM PDT) + + | Specimen | + + | | + + + + + | Narrative | Performed At | + + + | External films for comparison only | [facility] | | | | | No results will be in the chart. | | + + + + +---------+ + + | Performing | Address | City/State/Zipcode | Phone Number | | Organization | | | | + +---------+ + + | [facility] | | | | + +---------+ + + documented in this encounter Visit Diagnoses Not on filedocumented in this encounter"
--- OUTSIDE RECORDS SUMMARY | ~2019-12-29 | XMS | Encounter Summary ---
Demographics + + + | Address | [address] | | | [place] [address] | + + + | Home Phone | | + + + | Preferred Language | Unknown | + + + | Marital Status | | + + + | Taoism Affiliation | Unknown | + + + | Race | or | + + + | Ethnic Group | Not or | + + + Author + + + | Author | [facility] | | | and [place] | + + + | Organization | [facility] | | | and [...] Team Providers + +------+ + | Care Joint Maker Machine Name | Role | Phone | + +------+ + | Denis Galindo DO | PCP | | + +------+ + Reason for Referral Evaluate & Treat (Routine) +--------+ + + + + + | Status | Reason | Specialty | Diagnoses / | Referred By | Referred To | | | | | Procedures | Contact | Contact | +--------+ + + + + + | Closed | Specialty | Physical | Diagnoses | [place], | [facility] | | | Services | Therapy | | Kei Reyes, | DORINA | | | Required | | Spondylolist | [address] [facility]ITAL | | | | | hesis at | [address] | [address] | | | | | L5-S1 level | [place], | AVE | | | | | Lumbar | [place] [address] | [place], [place] | | | | | stenosis | Phone: | [phone] | | | | | with | [phone] | Phone: | | | | | neurogenic | Fax: | [phone] | | | | | claudication | [phone] | Fax: | | | | | Morbid | | [phone] | | | | | obesity with | | | | | | | BMI of | | | | | | | 50.0-59.9, | | | | | | | adult (HCC) | | | +--------+ + + + + + Reason for Visit + + + | Reason | Comments | + + + | Back Pain | | + + + Evaluate & Treat (Urgent) +--------+--------+ + + + + | Status | Reason | Specialty | Diagnoses / | Referred By | Referred To | | | | | Procedures | Contact | Contact | +--------+--------+ + + + + | Closed | | Neurosurgery | Diagnoses | [place], | [place], | | | | | Low back | Denis Dean DO | Kei Reyes MD | | | | | pain | [address] | [address] | | | | | Procedures | [address] | [address] | | | | | DC OFFICE | [place], | [place], | | | | | CONSULTATION | [place] [address] | [place] [address] | | | | | NEW/ESTAB | Phone: | Phone: | | | | | PATIENT 62 | [phone] | [phone] | | | | | MIN | Fax: | Fax: | | | | | | [phone] | [phone] | +--------+--------+ + + + + Encounter Details +--------+---------+ + + + | Date | Type | Department | Care Team | Description | +--------+---------+ + + + | 08/04/ | Office | [facility] | Kei Rao | Spondylolisthesis at | | 2015 | Visit | [address] | [address]-S1 level | | | | [address] | [address] [place] | (Primary Dx); Lumbar | | | | [place], [place] | [place] [address] | stenosis with | | | | [address] | [phone] | neurogenic | | | | [phone] | | claudication; Morbid | | | | | | obesity with BMI of | | | | | | 50.0-59.9, adult | | | | | | ([facility]) | +--------+---------+ + + + Social History + +-------+ [...] + | Blood Pressure | 126/72 | 08/05/2015 10:26 AM | | | | | PDT | | + + + + + | Pulse | 86 | 08/05/2015 10:26 AM | | | | | PDT | | + + + + + | Temperature | - | - | | + + + + + | Respiratory Rate | 18 | 08/05/2015 10:26 AM | | | | | PDT | | + + + + + | Oxygen Saturation | - | - | | + + + + + | Inhaled Oxygen | - | - | | | Concentration | | | | + + + + + | Weight | 147 kg (324 lb) | 08/05/2015 10:26 AM | | | | | PDT | | + + + + + | Height | 162.6 cm (5' 4") | 08/05/2015 10:26 AM | | | | | PDT | | + + + + + | Body Mass Index | 55.61 | 08/05/2015 10:26 AM | | | | | PDT | | + + + + + documented in this encounter Patient Instructions Patient Instructions Kei Rao MD - 08/05/2015 11:17 AM PDTPhysical therapy with water program, flexibility, core strengthening. Bariatric surgical evaluationElectronically signed by Kei Rao MD at 016 11:24 AM PDT documented in this encounter H&P Notes Kei Rao MD - 08/05/2015 11:27 AM PDTFormatting of this note might be diffe rent from the original. Kei Rao MD [address] [facility], [address] [place] [address] FAX: NEUROSURGERY HISTORY AND PHYSICAL EXAMINATION CHIEF COMPLAINT: Chief Complaint Patient presents with Back Pain HISTORY OF PRESENT ILLNESS: The patient is a 54 y.o. female with the complaint of back and bilateral leg pain symptoms that began 1.5 years ago. The patient describes initially incre asing back pain and then progressive leg symptoms with standing and walking. The symptoms have been gradually worsening. She rates the pain as severe. The symptoms ar e continuous. She describes the pain as sharp, numbing, tingling, shooting, pulsating, dull , aching, throbbing and tight band. The patient describes leg symptoms that occur on both sides equally. The leg symptoms acco unt for 40% of her symptoms. The leg symptoms are intermittent, but she has a baseline scooby pheral neuropathy, and the symptoms travel from the back to the anterior thigh. The patient also describes hypersensitivity of the lower extremities, the loss of the ability to walk d istances without sitting, the absence of position sense, numbness of the legs and numbness o f the foot. The patient does not report any change in bowel or bladder function recently. Her symptoms improve with rest and sitting. Her symptoms worsen with standing, walking, stairs and light exertion. She has tried PT, TENS, Opioids, NSAIDS and Muscle relaxers. The patient is currently taki ng opioids. These measures are helping but less so than before. PAST MEDICAL HISTORY: Past Medical History Diagnosis Date Hypertensive disorder Morbid obesity (HCC) Iron deficiency anemia Vitamin D deficiency Diabetic peripheral neuropathy (HCC) Acquired hypothyroidism Mixed hyperlipidemia Chronic pain syndrome Pure hyperglyceridemia Bilateral knee pain Type 2 diabetes, uncontrolled, with neuropathy (HCC) Closed displaced fracture of distal phalanx of great toe, unspecified laterality, seque la PAST SURGICAL HISTORY: Past Surgical History Procedure Laterality Date Bunionectomy Cholecystectomy 04/2005 CURRENT MEDICATIONS: Current Outpatient Prescriptions Medication Sig Dispense Refill amitriptyline (ELAVIL) 10 mg tablet Take 20 mg by mouth nightly. cholecalciferol (VITAMIN D-3) 1,000 units capsule Take 1,000 Units by mouth Daily. cholecalciferol (VITAMIN D-3) 5000 units TABS Take 5,000 Units by mouth Daily. diclofenac (VOLTAREN) 75 mg EC tablet Take 75 mg by mouth 2 times daily. ferrous sulfate 325 mg tablet Take 325 mg by mouth daily (with breakfast). gabapentin (NEURONTIN) 300 mg capsule Take 600 mg by mouth 4 times daily. hydrochlorothiazide (HYDRODIURIL) 12.5 MG tablet Take 12.5 mg by mouth Daily. HYDROcodone-acetaminophen (NORCO) 10-325 mg per tablet Take 1 tablet by mouth every 6 h ours as needed for Pain. insulin aspart protamine-insulin aspart (NOVOLOG MIX 70/30 FLEXPEN) 100 units/mL inject ion pen Inject 35-45 Units under the skin 2 times daily (with breakfast & dinner). levothyroxine (SYNTHROID, LEVOTHROID) 25 mcg tablet Take 25 mcg by mouth every morning (before breakfast). losartan (COZAAR) 50 mg tablet Take 50 mg by mouth Daily. lovastatin (MEVACOR) 20 mg tablet Take 20 mg by mouth nightly. metFORMIN (GLUCOPHAGE) 500 mg tablet Take 500 mg by mouth daily (with breakfast). methocarbamol (ROBAXIN) 750 mg tablet Take 750 mg by mouth 4 times daily. Multiple Vitamin (THERAGRAN PO) Take 1 tablet by mouth Daily. UNABLE TO FIND Twice daily as needed. Med Name: Bio freeze No current facility-administered medications for this visit. ALLERGIES: Allergies Allergen Reactions Pregabalin PERIPHERAL EDEMA SOCIAL HISTORY: The patient reports that she has never smoked. She has never used smokeless tobacco. She r eports that she drinks alcohol. She reports that she does not use illicit drugs. FAMILY HISTORY: Family History Problem Relation Age of Onset Lung cancer Father Arthritis Mother Stroke Mother Other (see comment) Brother LEUKEMIA Depressive disorder Sister Diabetes Sister Depressive disorder Sister Alzheimer's disease Paternal Grandmother No Known Problems Paternal Grandfather No Known Problems Maternal Grandfather Kidney disease Maternal Grandmother Other (see comment) Maternal Grandmother LUNG PROBLEMS REVIEW OF SYSTEMS GENERALLY: No fever, no night sweats, no anemia, no fatigue, + recent profound weight sepulveda es. EYES: No eye problems, +impaired sight, no use of corrective lenses, no eye injury, no doub le vision, no blindness. EARS, NOSE, AND THROAT: No changes in taste or smell, no hearing difficulty, no ringing in the ears, no ear drainage, no dizziness, no voice changes, no difficulty swallowing, no sign ificant snoring, no sleep apnea, no sinus problems, no major dental work. NEUROLOGICALLY: Please see the review of systems discussed above in the history of present illness. In addition, the patient has numbness/pain of legs, awake with numbness/pain, weakn ess, muscle aching, change in walk, pain in back. PSYCHIATRIC: No depression, no sleep disorders, no anxiety, no bipolar disorder, no psychot ic episodes. CARDIOVASCULAR: No heart attacks, no heart murmur, no heart fluttering, no chest pain, no a nkle swelling. LUNG DISEASE: No shortness of breath, no cough, no tuberculosis, no bloody cough, no asthma , no emphysema/COPD. GASTROINTESTINAL: No bowel disease, no nausea or vomiting, no rectal bleeding, no constipat ion, no stool incontinence, no liver disease, no gallbladder disease, no abdominal pain, no ulcers. KIDNEY DISEASE: No urinary frequency, no painful or difficult urination, no incontinence. ENDOCRINE: + diabetes, no thyroid disease, no osteopenia or osteoporosis, no breast drainag e. SKIN: No breast lumps, no skin changes, no rashes, no itches. HEMATOLOGIC/LYMPHATIC: No enlarged lymph nodes, no easy or unusual bleeding, no personal hi story of cancer. RHEUMATOLOGIC: + joint arthritis, no rheumatoid arthritis. PHYSICAL EXAMINATION: Blood pressure 126/72, pulse 86, resp. rate 18, height 1.626 m (5' 4"), weight 146.965 kg ( 324 lb). Body mass index is 55.59 kg/(m^2). GENERAL: Norbert Mckay is in no acute distress with unlabored respirations. The patien leonel does not appear uncomfortable throughout the exam today. HEENT: Head: Normocephalic/atraumatic with no areas of recent trauma. Eyes: Normal sclerae without icterus. Ears: No drainage or tenderness. Nasopharnyx: Clear without drainage. Oropharnyx: Clear without erythema. NECK (ANTERIOR): Supple and without palpable masses. CHEST: Clear to ausculation without crackles or wheeze. HEART: Regular rate and rhythm without murmurs. ABDOMEN: Soft, non-tender, non-distended, and without palpable masses. The patient is morbi dly obese. SPINE: There is no tenderness of there cervical or thoracic spine. The lumbar spine shows there is tenderness in the midline of the L2, L3 levels. To palpati on, there is no significant myofascial tenderness. There is no significant pain to provacative testing of the SI joint. There is no major deformity noted. EXTREMITIES: No cyanosis, clubbing, or edema. Distal pulses are palpable. NEUROLOGICAL EXAM: MENTAL STATUS: The patient is awake, alert, and oriented. She follows simple and complex commands. Her speech is fluent, she comprehends speech well, and she repeats well. She has no apparent deficits with short or usp memory. CRANIAL NERVES: Fundoscopic Exam: The optic disc is sharp. Normal vascular pattern is visualized II: Acuity is intact. Syed are full to confrontation. III, IV, : The pupils are reactive. Extraocular movements are intact. No ptosis is note d. V: Facial sensation is intact and symmetric. VII: Facial movements are symmetric. VIII: Hearing is intact bilaterally. IX, X: The uvula and palate move appropriately. XI: Shrug is equal bilaterally. XII: Tongue protrusion is midline. MOTOR EXAM: (5 IS NORMAL) * Indicates pain limited MUSCLE/ MOVEMENT: RIGHT LEFT Deltoids 5 5 Biceps 5 5 Triceps 5 5 Wrist Flexion 5 5 Wrist Extension 5 5 Median Intrinsics 5 5 Ulnar Intrinsics 5 5 Corrosion Control Specialist Strength 5 5 Hip Flexion 5 5 Hip Extension 5 5 Knee Flexion 5 5 Knee Extension 5 5 Dorsiflexion 5 5 Extensor Hallicus Longus 5 5 Plantarflexion 5 5 SENSORY EXAM: Sensory exam shows no diminished sensation to light touch or pain throughout the upper and lower extremities. REFLEXES: (2 OR 2+ IS NORMAL) REFLEX: RIGHT LEFT BICEPS 2 2 BRACHIORADIALIS 2 2 TRICEPS 2 2 PATELLAR 2 2 ACHILLES 2 2 ROSS'S ABSENT ABSENT PLANTAR DOWNGOING DOWNGOING GAIT: Gait is steady. PERIPHERAL NERVE/MISC: Tinel is negative at the wrists and elbows bilaterally. Phalen is negative. Straight leg raise is negative bilaterally. Akin's test of the hips is negative bilaterally. TEST AND RADIOGRAPHIC REVIEW: The patient's imaging was reviewed in detail with the patient today during the visit. The MRI from 2016 shows spondylolisthesis with stenosis at L4-5 and an annular tear at L5-S1. Th ere is facet arthropathy at L4-5 and a right sided facet cyst.. Lumbar x-rays show spondylolisthesis at L4-5 that moves about 4mm on flexion extension view s. ASSESSMENT: NEUROSURGICAL DIAGNOSES: Encounter Diagnoses Name Primary? Spondylolisthesis at L5-S1 level Yes Lumbar stenosis with neurogenic claudication Morbid obesity with BMI of 50.0-59.9, adult ([facility]) GENERAL DIAGNOSES: Past Medical History Diagnosis Date Hypertensive disorder Morbid obesity ([facility]) Iron deficiency anemia Vitamin D deficiency Diabetic peripheral neuropathy ([facility]) Acquired hypothyroidism Mixed hyperlipidemia Chronic pain syndrome Pure hyperglyceridemia Bilateral knee pain Type 2 diabetes, uncontrolled, with neuropathy ([facility]) Closed displaced fracture of distal phalanx of great toe, unspecified laterality, seque la PLAN: Norebrt Mckay presented today, and I greatly appreciate this referral. I spent a major ity of the visit discussing her neurologic problems. The patient has morbid obesity with a degenerative listhesis L4-5 and degeneration at L5-S1 . The patient has progressive symptoms despite non-operative measures. I had a lengthy discussion with the patient about her options for care including surgical a nd non-surgical options. In discussing the surgical options, we discussed in detail the patient's options for a TLIF at L4-5 and L5-S1. The patient understands that in most instances the recovery from surger y can be lengthy and sometimes difficult. The patient would be a t high risk because of her morbid obesity and insulin dependent diab etes. The patient would like to weigh their options and contact us back. She will be set up for a water and core exercise program, and is encouraged to seek bariatric treatments. ELECTRONICALLY SIGNED BY: Kei Rao MD, 08/05/2015 11:27 documented in this encounter Plan of Treatment +--------+---------+ + + + | Date | Type | Specialty | Care Team | Description | +--------+---------+ + + + | 01/22/ | Office | Cardiology | Zuhair Lee | | | 2020 | Visit | | MD Walker [address] | | | | | | [address] | | | | | | [place] [address] | | | | | | [phone] | | | | | | | | +--------+---------+ + + + + + +--------+ + + | Name | Type | Priori | Associated Diagnoses | Order Schedule | | | | ty | | | + + +--------+ + + | OUTPATIENT PT | Outpatient | Routin | Spondylolisthesis | Ordered: 08/05/2015 | | EXTERNAL | Referral | e | at L5-S1 level | | | | | | Lumbar stenosis with | | | | | | neurogenic | | | | | | claudication Morbid | | | | | | obesity with BMI of | | | | | | 50.0-59.9, adult | | | | | | ([facility]) | | + + +--------+ + + documented as of this encounter Visit Diagnoses + + | Diagnosis | + + | Spondylolisthesis at L5-S1 level - Primary | + + | Lumbar stenosis with neurogenic claudication Spinal stenosis, lumbar region, with | | neurogenic claudication | + + | Morbid obesity with BMI of 50.0-59.9, adult (HCC) | + + documented in this encounter
--- OUTSIDE RECORDS SUMMARY | ~2019-12-29 | XMS | Encounter Summary ---
Demographics + + + | Address | [address] | | | [place] [address] | + + + | Home Phone [...] Author + + + | Author | [facility] | | | and [place] | + + + | Organization | [facility] | | | [...] Team Providers + +------+ + | Care Electrolytic De Scaler Name | Role | Phone | + [...] + | 11/20/ | Home Care | JEAN MACE | Triston Holley | CASE COMMUNICATION | | 2020 | Visit | [place] [address] | [place], [address] | | | | | [address] [place] | [phone] | | | | | [address] | | | | | | [phone] | | | +--------+ + + + [...] | | | | | [place] [address] | | | | | | [phone] | | | | | | | | +--------+---------+ + + + documented as of this encounter Visit Diagnoses Not on filedocumented in this encounter"
--- OUTSIDE RECORDS SUMMARY | ~2019-12-29 | XMS | Encounter Summary ---
Demographics + + + | Address | [address] | | | [place] [address] | + + + | Home Phone | | + + + | Preferred Language | Unknown | + + + | Marital Status | | + + + | Orthodoxy Affiliation | Unknown | + + + | Race | or | + + + | Ethnic Group | Not or | + + + Author + + + | Author | [facility] | | | and [place] | + + + | Organization | [facility] | | | [...] Team Providers + +------+ + | Care Website Admin Name | Role | Phone | + [...] | +--------+ + + + + | 11/14/ | Home Care | JEAN MACE | Rayna, | RT REPEAT VISIT | | 2019 | Visit | [place] [address] | [address] | | | | | [place] | | | | | | [address] | | | | | | [phone] | | | +--------+ + + + [...] this encounter Last Filed Vital Signs + +---------+ + + | Vital Sign | Reading | Time Taken | Comments | + +---------+ + + | Blood Pressure | - | - | | + +---------+ + + | Pulse | 72 | 11/15/2019 1:00 PM | | | | | PDT | | + +---------+ + + | Temperature | - | - | | + +---------+ + + | Respiratory Rate | 18 | 11/15/2019 1:00 PM | | | | | PDT | | + +---------+ + + | Oxygen Saturation | 93% | 11/15/2019 1:00 PM | | | | | PDT | | + +---------+ + + | Inhaled Oxygen | - | - | | | Concentration | | | | + +---------+ + + | Weight | - | - | | + +---------+ + + | Height | - | - | | + +---------+ + + | Body Mass Index | - | - | | + +---------+ + + documented in this encounter Functional [...] | | | | | [place] [address] | | | | | | [phone] | | | | | | | | +--------+---------+ + + + documented as of this encounter Visit Diagnoses Not on filedocumented in this encounter"
--- OUTSIDE RECORDS SUMMARY | ~2019-12-29 | XMS | Encounter Summary ---
Demographics + + + | Address | [address] | | | [place] [address] | + + + | Home Phone | | + + + | Preferred Language | Unknown | + + + | Marital Status | | + + + | Presybeterian Affiliation | Unknown | + + + | Race | or | + + + | Ethnic Group | Not or | + + + Author + + + | Author | [facility] | | | and [place] | + + + | Organization | [facility] | | | [...] Team Providers + +------+ + | Care Auto Finance Sales Rep Name | Role | Phone | + [...] | +--------+ + + + + | 11/27/ | Home Care | [facility] [place] | [employer], | TELEPHONE ENCOUNTER | | 2020 | Visit | [place] [address] | BRAND COORDINATOR [address] | | | | | [place] | [place], [place] | | | | | [address] | [address] | | | | | [phone] | | | +--------+ + + + [...] | | | | | [place] [address] | | | | | | [phone] | | | | | | | | +--------+---------+ + + + documented as of this encounter Visit Diagnoses Not on filedocumented in this encounter"
--- OUTSIDE RECORDS SUMMARY | ~2019-12-29 | XMS | Encounter Summary ---
Demographics + + + | Address | [address] | | | [place] [address] | + + + | Home Phone | | + + + | Preferred Language | Unknown | + + + | Marital Status | | + + + | Episcopal Affiliation | Unknown | + + + | Race | or | + + + | Ethnic Group | Not or | + + + Author + + + | Author | [facility] | | | and [place] | + + + | Organization | [facility] | | [...] Team Providers + +------+ + | Care Slitter And Rewinder Machine Operator Name | Role | Phone | [...] | +--------+ + + + + | 11/21/ | Home Care | [facility] | Eugenio Romeo | OT REASSESSMENT | | 2020 | Visit | [place] [address] | M, OT | (COUNT OR 30 DAY) | | | | [place] | | | | | | [address] | | | | | | [phone] | | | +--------+ + + + [...] documented as of this encounter Miscellaneous Notes [facility] - Eugenio Rmoeo OT - 11/22/2019 1:52 PM PDT1) Are you or anyone you linda e with experiencing any of the following symptoms? no Fever or chills Cough (new or changed) Shortness of breath or difficulty breathing (new or changed) Fatigue (new or changed) Muscle or body aches (new or changed) New loss of taste or smell Sore throat New or unusual congestion or runny nose New or unusual headache Nausea or vomiting New or unusual diarrhea (review medical conditions, medications and othe r possible causes if this is the only symptom) 2) If yes, who is experiencing symptoms? 3) Have you or anyone in your household been tested and have results pending or have been d iagnosed with COVID-19? No 4) If visiting a health care facility, is the facility experiencing a COVID-19 outbreak? N/ A 5) Have you had close contact with someone tested for or diagnosed with COVID-19 in the las t 30 days? No 6) Have you or anyone you have had close contact with traveled outside of your state in the last 30 days? No Screening is: Negative Indicate positive screen if: Answer to any question 1-6 is yes. Consult with sleep manager prior to visit. S - 59 y.o. Female with sepsis being seen by OT for ADL performance. B - Patient reports she has been doing better today. Patient reports that she had an appt o n Wednesday at [facility] and was quite exhausted by the end of the day as she had also show ered that same morning. Patient reports she is concerned with the wellbeing of the home heal th staff as her is unable to fully isolate (he needs to go in to work on Fridays) an d does not want home health to feel obligated to come out if they do not feel safe. OT assur ed her that home health staff coming to see her are following protocol and have been advised to keep social distancing while with the patient. A - OT demonstrated the use of a leg devops architect for bed mobility, a grabber for dressing and ge neral uses around the house, and the use of a extra wide sock aid for donning socks. Patient was not up to trying the leg devops architect or grabber for dressing today as she reports her dogs a re in the bedroom and it would be very traumatizing for them to have to be moved to another room. Patient did try the sock aid with moderate success. OT provided minimal assistance for patient to have a feel for it. OT discussed the barriers with it's use with patient for tri alling today. Patient was seated on her sofa in the living room, which is quite a bit lower to the ground than her bed (which she usually gets dressed on). OT noticed that patient had a difficult time lifting her legs up while seated edge of the sofa to slide her foot through the sock aid. OT recommended patient do this while in the bedroom to eliminate the barrier of the floor as patient's feet tend to "dangle" off the side of the bed. OT also recommended that patient use baby powder on the sock aid to allow decreased resistance when sliding the foot through the sock aid. Patient verbalized agreement with these modifications and feels it would be beneficial. OT provided information for patient to purchase the equipment as the se were deemed useful for patient. Patient and verbalized agreement. R - Patient has been progressing with OT and would benefit from continued OT services to continue to progress original POC. OT will request more visits of 1-4 x 30 days to address ADL training, fall prevention, BUE HEP for strengthening, IADL training (as appropriate).Britney ctronically signed by Eugenio Romeo OT at 11/22/2019 3:27 PM PDTdocumented in this en counter Plan of Treatment +--------+---------+ + + + | Date | Type | Specialty | Care Team | Description | +--------+---------+ + + + | 01/22/ | Office | Cardiology | Zuhair Lee | | | 2019 | Visit | | MD Walker [address] | | | | | | [facility] | | | | | | [place] [address] | | | | | | [phone] | | | | | | | | +--------+---------+ + + + documented as of this encounter Visit Diagnoses Not on filedocumented in this encounter Home Health Visit - Care Plan + + | Visit Type - OT - REASSESSMENT VISIT | | Discipline - Occupational Therapy | + + + + +--------+--------+ + + | Problem | Description | Start | Status | Goals | Interventio | | | | Date | | | ns | + + +--------+--------+ + + | HH OT ADL DEFICITS | ADL deficits | | | 1 goal | 1 goal | | Disciplines: | | | Active | linked to | interventio | | Occupational Therapy | | 020 | | scheduled/d | n | | | | | | ocumented | scheduled/d | | | | | | interventio | ocumented | | | | | | n | in this | | | | | | | visit | + + +--------+--------+ + + | HH OT DYSPNEA | Dyspnea | | | 1 goal | | | Disciplines: | | | Active | linked to | | | Occupational Therapy | | 020 | | scheduled/d | | | | | | | ocumented | | | | | | | interventio | | | | | | | n | | + + +--------+--------+ + + | HH OT HEP NEED | HEP need | | | 1 goal | | | Disciplines: | | | Active | linked to | | | Occupational Therapy | | 020 | | scheduled/d | | | | | | | ocumented | | | | | | | interventio | | | | | | | n | | + + +--------+--------+ + + | HH OT IADL | IADL deficits | | | 1 goal | | | DEFICITS | | | Active | linked to | | | Disciplines: | | 020 | | scheduled/d | | | Occupational Therapy | | | | ocumented | | | | | | | interventio | | | | | | | n | | + + +--------+--------+ + + | HH OT IMPAIRED | Muscle | | | 1 goal | | | STRENGTH | re-education | | Active | linked to | | | Disciplines: | | 020 | | scheduled/d | | | Occupational Therapy | | | | ocumented | | | | | | | interventio | | | | | | | n | | + + +--------+--------+ + + | HH OT IMPAIRED | Impaired transfers | | | 1 goal | | | TRANSFERS | | | Active | linked to | | | Disciplines: | | 020 | | scheduled/d | | | Occupational Therapy | | | | ocumented | | | | | | | interventio | | | | | | | n | | + + +--------+--------+ + + | HH PT/OT | Edema/Lymphedema | | | 1 goal | | | EDEMA/LYMPHEDEMA | | | Active | linked to | | | Disciplines: | | 020 | | scheduled/d | | | Occupational Therapy | | | | ocumented | | | | | | | interventio | | | | | | | n | | + + +--------+--------+ + + + + +--------+-------+ + | Goal | Associated Problem | Outcom | Goal | Visit Notes | | | | e | Met? | | + + +--------+-------+ + | HH OT ADL | HH OT ADL DEFICITS | | No | | | Description: By | | Ongoin | | | | 11/22/19, The | | g, | | | | patient demonstrates | | progre | | | | toileting ability | | ssing | | | | independently with | | | | | | increased time using | | | | | | deluxe toilet aid. | | | | | | The patient | | | | | | demonstrates lower | | | | | | body dressing | | | | | | independently with | | | | | | increased time using | | | | | | sock-aid, shoe | | | | | | horn, two way radio technician, leg | | | | | | devops architect and dressing | | | | | | stick. Outcomes: | | | | | | The patient will | | | | | | achieve maximal | | | | | | safety and modified | | | | | | independence with | | | | | | ADLs. | | | | | + + +--------+-------+ + | HH OT DYSPNEA | HH OT DYSPNEA | | No | | | Description: By | | Ongoin | | | | 11/22/19, the patient | | g, | | | | will verbalize | | progre | | | | understanding of | | ssing | | | | energy | | | | | | conservation/work | | | | | | simplification | | | | | | techniques during | | | | | | ADLs. The patient | | | | | | will demonstrate | | | | | | independence with | | | | | | 4-7-8 breathing | | | | | | technique for | | | | | | optimal oxygenation | | | | | | during ADLs. | | | | | + + +--------+-------+ + | HH OT HOME | HH OT HEP NEED | | No | | | EXERCISE PROGRAM | | Ongoin | | | | (HEP) NEED | | g, not | | | | Description: By | | | | | | 11/22/19, the patient | | progre | | | | will be modified | | ssing | | | | independent in the | | | | | | home exercise | | | | | | program to increase | | | | | | strength and | | | | | | endurance in BUE | | | | | | during ADLs. | | | | | + + +--------+-------+ + | HH OT IADL | HH OT IADL | | No | | | Description: By | DEFICITS | Ongoin | | | | 11/22/19, The | | g, not | | | | patient demonstrates | | | | | | meal preparation | | progre | | | | with set up with | | ssing | | | | assitive devices. | | | | | | The patient | | | | | | demonstrates ability | | | | | | to do laundry with | | | | | | set up with assitive | | | | | | devices. The | | | | | | patient demonstrates | | | | | | houskeeping | | | | | | independently with | | | | | | increased time with | | | | | | assitive devices. | | | | | | The patient | | | | | | demonstrates | | | | | | managing meds with | | | | | | supervision with | | | | | | assitive devices. | | | | | | The patient | | | | | | demonstrates | | | | | | managing pets | | | | | | independently with | | | | | | increased time with | | | | | | assistive devices. | | | | | | Outcomes: The | | | | | | patient will achieve | | | | | | maximal safety and | | | | | | modified | | | | | | independence with | | | | | | IADLs. | | | | | + + +--------+-------+ + | HH OT IMPAIRED | HH OT IMPAIRED | | No | | | STRENGTH | STRENGTH | Ongoin | | | | Description: By | | g, | | | | 11/22/19, patient | | progre | | | | will have increased | | ssing | | | | spring tester strength of 5 | | | | | | lbs. patient will | | | | | | have increased BUE | | | | | | strength to 4+/5 MMT | | | | | | during ADLs. | | | | | + + +--------+-------+ + | HH OT TRANSFER | HH OT IMPAIRED | | No | | | Description: By | TRANSFERS | Ongoin | | | | 11/22/19, The patient | | g, | | | | will perform | | progre | | | | independent | | ssing | | | | transfers for all | | | | | | household surfaces | | | | | | using standard | | | | | | walkertheresa, | | | | | | and other assistiv | | | | | | devices. Outcomes: | | | | | | The patient will | | | | | | reach modified | | | | | | independence and | | | | | | safety with | | | | | | transfers to/from | | | | | | all house hold | | | | | | surfaces. | | | | | + + +--------+-------+ + | HH PT/OT EDEMA | HH PT/OT | | No | | | Description: By | EDEMA/LYMPHEDEMA | Ongoin | | | | 11/22/19, | | g, not | | | | Short-term: The | | | | | | patient will be | | progre | | | | independent with | | ssing | | | | skincare to reduce | | | | | | the risk of | | | | | | infection. | | | | | | Short-term: The | | | | | | patient will be | | | | | | independent with | | | | | | lymph massage or | | | | | | exercises to reduce | | | | | | edema. Short-term: | | | | | | The patient will be | | | | | | independent with | | | | | | application of | | | | | | compression | | | | | | bandages/garments to | | | | | | reduce edema. | | | | | | Long-term: The | | | | | | patient will be | | | | | | independent in | | | | | | lymphedema | | | | | | management | | | | | + + +--------+-------+ + + + +--------+--------+ + | Intervention | Associated | Status | Varian | Visit Notes | | | Problem/Goal | | ce | | + + +--------+--------+ + | ADL Training | Problem: HH OT ADL | | | | | Description: | DEFICITSGoal: HH OT | Comple | | | | Occupational | ADL | nellie | | | | Therapist to visit | | | | | | for assessment, | | | | | | planning, | | | | | | teaching/training, | | | | | | and evaluation of | | | | | | the POC related to | | | | | | patient's ability to | | | | | | perform ADLs due to | | | | | | decreased activity | | | | | | tolerance. | | | | | + + +--------+--------+ + documented in this encounter
--- OUTSIDE RECORDS SUMMARY | ~2019-12-29 | XMS | Encounter Summary ---
Demographics + + + | Address | [address] | | | [place] [address] | + + + | Home Phone | | + + + | Preferred Language | Unknown | + + + | Marital Status | | + + + | Latter-Day Affiliation | Unknown | + + + | Race | or | + + + | Ethnic Group | Not or | + + + Author + + + | Author | [facility] | | | and [place] | + + + | Organization | [facility] | | | [...] + + + + | 11/14/ | Abstract | [facility] [place] | Zuhair Lee | | | 2019 | | [address] | MD Walker [address] | | | | | [address], | [address] [place] | | | | | [place] [address] | [place] [address] | | | | | [phone] | | | | | | | [...] | +--------+---------+ + + + | 01/22/ Office | Cardiology | Zuhair Lee | | | 2019 | Visit | | MD Walker [address] | | | | | | [place] [address] | | | | | | [place] [address] | | | | | | [phone] | | | | | | | | +--------+---------+ + + + documented as of this encounter Procedures + +--------+ + + + | Procedure Name | Priori | Date/Time | Associated Diagnosis | Comments | | | ty | | | | + +--------+ + + + | EXTERNAL LAB: EARL | Routin | 10/23/2019 | | Results for this | | | e | | | procedure are in the | | | | | | results section. | + +--------+ + + + | EXTERNAL LAB: | Routin | 10/23/2019 | | Results for this | | GLUCOSE | e | | | procedure are in the | | | | | | results section. | + +--------+ + + + | EXTERNAL LAB: ALT | Routin | 10/23/2019 | | Results for this | | | e | | | procedure are in the | | | | | | results section. | + +--------+ + + + | EXTERNAL LAB: AST | Routin | 10/23/2019 | | Results for this | | | e | | | procedure are in the | | | | | | results section. | + +--------+ + + + | EXTERNAL LAB: | Routin | 10/23/2019 | | Results for this | | ALKALINE PHOSPHATASE | e | | | procedure are in the | | | | | | results section. | + +--------+ + + + | EXTERNAL LAB: | Routin | 10/23/2019 | | Results for this | | BILIRUBIN, TOTAL | e | | | procedure are in the | | | | | | results section. | + +--------+ + + + | EXTERNAL LAB: | Routin | 10/23/2019 | | Results for this | | ALBUMIN | e | | | procedure are in the | | | | | | results section. | + +--------+ + + + | EXTERNAL LAB: | Routin | 10/23/2019 | | Results for this | | PROTEIN, TOTAL | e | | | procedure are in the | | | | | | results section. | + +--------+ + + + | EXTERNAL LAB: | Routin | 10/23/2019 | | Results for this | | CALCIUM | e | | | procedure are in the | | | | | | results section. | + +--------+ + + + | EXTERNAL LAB: CARBON | Routin | 10/23/2019 | | Results for this | | DIOXIDE | e | | | procedure are in the | | | | | | results section. | + +--------+ + + + | EXTERNAL LAB: | Routin | 10/23/2019 | | Results for this | | CHLORIDE | e | | | procedure are in the | | | | | | results section. | + +--------+ + + + | EXTERNAL LAB: | Routin | 10/23/2019 | | Results for this | | POTASSIUM | e | | | procedure are in the | | | | | | results section. | + +--------+ + + + | EXTERNAL LAB: SODIUM | Routin | 10/23/2019 | | Results for this | | | e | | | procedure are in the | | | | | | results section. | + +--------+ + + + | EXTERNAL LAB: ROBERTO | Routin | 10/23/2019 | | Results for this | | | e | | | procedure are in the | | | | | | results section. | + +--------+ + + + | EXTERNAL LAB: ROBERTO | Routin | 10/23/2019 | | Results for this | | | e | | | procedure are in the | | | | | | results section. | + +--------+ + + + | EXTERNAL LAB: | Routin | 10/23/2019 | | Results for this | | TRIGLYCERIDES | e | | | procedure are in the | | | | | | results section. | + +--------+ + + + | EXTERNAL LAB: | Routin | 10/23/2019 | | Results for this | | CHOLESTEROL, HDL | e | | | procedure are in the | | | | | | results section. | + +--------+ + + + | EXTERNAL LAB: | Routin | 10/23/2019 | | Results for this | | CHOLESTEROL, TOTAL | e | | | procedure are in the | | | | | | results section. | + +--------+ + + + | EXTERNAL LAB: EGFR | Routin | 10/23/2019 | | Results for this | | | e | | | procedure are in the | | | | | | results section. | + +--------+ + + + | CBC W/AUTO | Routin | 10/23/2019 | | Results for this | | DIFFERENTIAL | e | | | procedure are in the | | | | | | results section. | + +--------+ + + + | HEMOGLOBIN A1C | Routin | 10/23/2019 | | Results for this | | | e | | | procedure are in the | | | | | | results section. | + +--------+ + + + | COMPREHENSIVE | Routin | 10/23/2019 | | Results for this | | METABOLIC PANEL | e | | | procedure are in the | | | | | | results section. | + +--------+ + + + documented in this encounter Results Hemoglobin A1C (10/23/2019) + +-------+ + + + | Component | Value | Ref Range | Performed | Pathologist | | | | | At | Signature | + +-------+ + + + | Hemoglobin | 6.4 | % | | | | A1c | | | | | + +-------+ + + + + + | Specimen | + + | Blood | + + External Lab: CBC (10/23/2019) + +-------+ + + + | Component | Value | Ref Range | Performed | Pathologist | | | | | At | Signature | + +-------+ + + + | PLT, | 159 | | | | | External | | | | | + +-------+ + + + CBC w/ Auto Differential (10/23/2019) + +-------+ + + + | Component | Value | Ref Range | Performed | Pathologist | | | | | At | Signature | + +-------+ + + + | MCHC | 32.3 | 30.0 - 36.0 | | | | | | g/dL | | | + +-------+ + + + | MCH | 32.6 | 26.0 - 33.0 pg | | | + +-------+ + + + | % Basophils | 0.5 | 1.0 % | | | + +-------+ + + + + + | Specimen | + + | Blood | + + External Lab: CBC (10/23/2019) + +-------+ + + + | Component | Value | Ref Range | Performed | Pathologist | | | | | At | Signature | + +-------+ + + + | HGB, | 11.23 | | | | | External | | | | | + +-------+ + + + | HCT, | 34.81 | | | | | External | | | | | + +-------+ + + + | Neutrophils | 58.50 | | | | | %, | | | | | | External | | | | | + +-------+ + + + | Lymphocytes | 27 | | | | | %, | | | | | | External | | | | | + +-------+ + + + | Monocytes | 7.20 | | | | | %, External | | | | | + +-------+ + + + | Eosinophils | 6.80 | | | | | %, | | | | | | External | | | | | + +-------+ + + + | Neutrophils | 6.21 | | | | | , Absolute, | | | | | | External | | | | | + +-------+ + + + | Lymphocytes | 2.87 | | | | | , Absolute, | | | | | | External | | | | | + +-------+ + + + | Monocytes, | 0.76 | | | | | Absolute, | | | | | | External | | | | | + +-------+ + + + | Eosinophils | 0.72 | | | | | , Absolute | | | | | + +-------+ + + + | Basophils, | 0.05 | | | | | Absolute | | | | | + +-------+ + + + | RBC, | 3.44 | | | | | External | | | | | + +-------+ + + + | MCV, | 101 | | | | | External | | | | | + +-------+ + + + | RDW, | 13.82 | | | | | External | | | | | + +-------+ + + + Comprehensive Metabolic Panel (10/23/2019) + +-------+ + + + | Component | Value | Ref Range | Performed | Pathologist | | | | | At | Signature | + +-------+ + + + | Anion Gap | 12 | mmol/L | | | + +-------+ + + + | Bun/Creatin | 12.2 | | | | | ine | | | | | + +-------+ + + + + + | Specimen | + + | Blood | + + External Lab: BUN (10/23/2019) + +-------+ + + + | Component | Value | Ref Range | Performed | Pathologist | | | | | At | Signature | + +-------+ + + + | BUN, | 12.2 | | | | | External | | | | | + +-------+ + + + External Lab: Glucose (10/23/2019) + +-------+ + + + | Component | Value | Ref Range | Performed | Pathologist | | | | | At | Signature | + +-------+ + + + | Glucose, | 82 | 70 - 100 | | | | External | | | | | + +-------+ + + + External Lab: ALT (10/23/2019) + +-------+ + + + | Component | Value | Ref Range | Performed | Pathologist | | | | | At | Signature | + +-------+ + + + | ALT, | 20 | | | | | External | | | | | + +-------+ + + + External Lab: AST (10/23/2019) + +-------+ + + + | Component | Value | Ref Range | Performed | Pathologist | | | | | At | Signature | + +-------+ + + + | AST, | 21 | | | | | External | | | | | + +-------+ + + + External Lab: Alkaline Phosphatase (10/23/2019) + +-------+ + + + | Component | Value | Ref Range | Performed | Pathologist | | | | | At | Signature | + +-------+ + + + | ALP, | 201 | | | | | External | | | | | + +-------+ + + + External Lab: Bilirubin, Total (10/23/2019) + +-------+ + + + | Component | Value | Ref Range | Performed | Pathologist | | | | | At | Signature | + +-------+ + + + | Bilirubin, | 0.4 | | | | | Total, | | | | | | External | | | | | + +-------+ + + + External Lab: Albumin (10/23/2019) + +-------+ + + + | Component | Value | Ref Range | Performed | Pathologist | | | | | At | Signature | + +-------+ + + + | Albumin, | 3.3 | | | | | External | | | | | + +-------+ + + + External Lab: Protein, Total (10/23/2019) + +-------+ + + + | Component | Value | Ref Range | Performed | Pathologist | | | | | At | Signature | + +-------+ + + + | Protein, | 7.2 | | | | | Total, | | | | | | External | | | | | + +-------+ + + + External Lab: Calcium (10/23/2019) + +-------+ + + + | Component | Value | Ref Range | Performed | Pathologist | | | | | At | Signature | + +-------+ + + + | Calcium, | 8.5 | | | | | External | | | | | + +-------+ + + + External Lab: Carbon Dioxide (10/23/2019) + +-------+ + + + | Component | Value | Ref Range | Performed | Pathologist | | | | | At | Signature | + +-------+ + + + | Carbon | 23 | | | | | Dioxide, | | | | | | External | | | | | + +-------+ + + + External Lab: Chloride (10/23/2019) + +-------+ + + + | Component | Value | Ref Range | Performed | Pathologist | | | | | At | Signature | + +-------+ + + + | Chloride, | 107 | | | | | External | | | | | + +-------+ + + + External Lab: Potassium (10/23/2019) + +-------+ + + + | Component | Value | Ref Range | Performed | Pathologist | | | | | At | Signature | + +-------+ + + + | Potassium, | 4.9 | | | | | External | | | | | + +-------+ + + + External Lab: Sodium (10/23/2019) + +-------+ + + + | Component | Value | Ref Range | Performed | Pathologist | | | | | At | Signature | + +-------+ + + + | Sodium, | 137 | | | | | External | | | | | + +-------+ + + + External Lab: Triglycerides (10/23/2019) + +-------+ + + + | Component | Value | Ref Range | Performed | Pathologist | | | | | At | Signature | + +-------+ + + + | Triglycerid | 151 | | | | | es, | | | | | | External | | | | | + +-------+ + + + + + | Specimen | + + | Blood | + + External Lab: Cholesterol, HDL (10/23/2019) + +-------+ + + + | Component | Value | Ref Range | Performed | Pathologist | | | | | At | Signature | + +-------+ + + + | HDL | 33 | mg/dl | | | | Cholesterol | | | | | | , External | | | | | + +-------+ + + + + + | Specimen | + + | Blood | + + External Lab: Cholesterol, Total (10/23/2019) + +-------+ + + + | Component | Value | Ref Range | Performed | Pathologist | | | | | At | Signature | + +-------+ + + + | Cholesterol | 115 | mg/dl | | | | , Total, | | | | | | External | | | | | + +-------+ + + + + + | Specimen | + + | Blood | + + External Lab: eGFR (10/23/2019) + +-------+ + + + | Component | Value | Ref Range | Performed | Pathologist | | | | | At | Signature | + +-------+ + + + | eGFR, | 33 | | | | | External | | | | | + +-------+ + + + + + | Specimen | + + | Blood | + + documented in this encounter Visit Diagnoses Not on filedocumented in this encounter"
--- OUTSIDE RECORDS SUMMARY | ~2019-12-29 | XMS | Encounter Summary ---
Demographics + + + | Address | [address] | | | [place] [address] | + + + | Home Phone | | + + + | Preferred Language | Unknown | + + + | Marital Status | | + + + | Denominational Affiliation | Unknown | + + + | Race | or | + + + | Ethnic Group | Not or | + + + Author + + + | Author | [facility] | | | and [place] | + + + | Organization | [facility] | | | [...] Team Providers + +------+ + | Care Dry Box Operator Name | Role | Phone | [...] | 11/14/ | Home Care | [facility] | Triston Holley | PIANO MAKER SECONDARY EVAL | | 2019 | Visit | [place] [address] | S, POWER PRESS TENDER | | | | | [address] [place] | [phone] | | | | | [address] | | | | | | [phone] | | | +--------+ + + + [...] this encounter Miscellaneous Notes Home Health - Triston Holley, POWER PRESS TENDER - 11/15/2019 2:00 PM Venancio is a 59 year old Na tive [place] lady who is living at home with her . Her works full [employer] for the [employer] the [employer]. He has been working from home since the pa elyssa returned home from the hospital. The patient is recovering from sepsis due to e. coli infection. She is an insulin dependent diabetic with type 2 diabetes mellitus. She is, als o, morbibly obese. The patient stated that she is adusting to still being exremely weak and having to rely on her for her care. She is, also, still struggling with the loss o f her mother who a year ago. She feels that she is still mourning her loss and this illness has made her mood much worse. She wants to regain her independence. Her husba nd is going to have to start going into the office more and she is afraid of being alone. T social owrker talked with her about securing an emergency call button. This social work er will, also, check with the [facility] to find out what kind of support and counell ing is available for [place] members. This licensed clinical social worker will try to make at least [facility] to provide information and support.1) Are you or anyone you live with experiencin g any of the following symptoms? no Fever [...] any question 1-6 is yes. Consult with linen manager prior to visit.Electronically s igned by DA Ahuja at 11/20/2019 3:37 PM PDTdocumented in this encounter Plan of Treatment +--------+---------+ + + + | Date | Type | Specialty | Care Team | Description | +--------+---------+ + + + | 01/22/ | Office | Cardiology | Zuhair Lee | | | 2019 | Visit | | MD Walker [address] | | | | | | [place] [facility] | | | | | | [place] [address] | | | | | | [phone] | | | | | | | | +--------+---------+ + + + documented as of this encounter Visit Diagnoses Not on filedocumented in this encounter"
--- OUTSIDE RECORDS SUMMARY | ~2019-12-29 | XMS | Encounter Summary ---
Demographics + + + | Address | [address] | | | [place] [address] | + + + | Home Phone | | + + + | Preferred Language | Unknown | + + + | Marital Status | | + + + | Advent Affiliation | Unknown | + + + | Race | or | + + + | Ethnic Group | Not or | + + + Author + + + | Author | [facility] | | | and [place] | + + + | Organization | [facility] | | | and [...] Team Providers + +------+ + | Care Consulting Database Administrator Name | Role | Phone | + [...] + | 10/27/ | Home Care | JEAN MACE | Eugenio Romeo | CASE COMMUNICATION | | 2020 | Visit | [place] [address] | M, MARIUM | | | | | [place] | | | | | | [address] | | | | | | [phone] | | | +--------+ + + + [...] | | | | | [place] [address] | | | | | | [phone] | | | | | | | | +--------+---------+ + + + documented as of this encounter Visit Diagnoses Not on filedocumented in this encounter"
--- OUTSIDE RECORDS SUMMARY | ~2019-12-29 | XMS | Encounter Summary ---
Demographics + + + | Address | [address] | | | [place] [address] | + + + | Home Phone | | + + + | Preferred Language | Unknown | + + + | Marital Status | | + + + | Faith Affiliation | Unknown | + + + | Race | or | + + + | Ethnic Group | Not or | + + + Author + + + | Author | [facility] | | | and [place] | + + + | Organization | [facility] | | | and [place] | + [...] Team Providers + +------+ + | Care Colleter Name | Role | Phone | + [...] + | 11/28/ | Home Care | [facility]AN [facility]ACE | Triston Holley | CASE COMMUNICATION | | 2020 | Visit | [place] [address] | Ami, INTERNAL SECURITY MANAGER | | | | | [place] | [phone] | | | | | [address] | | | | | | [phone] | | | +--------+ + + + [...] | | | | | [place] [address] | | | | | | [phone] | | | | | | | | +--------+---------+ + + + documented as of this encounter Visit Diagnoses Not on filedocumented in this encounter"
--- OUTSIDE RECORDS SUMMARY | ~2019-12-29 | XMS | Encounter Summary ---
Demographics + + + | Address | [address] | | | [place] [address] | + + + | Home Phone | | + + + | Preferred Language | Unknown | + + + | Marital Status | | + + + | Bahai Affiliation | Unknown | + + + [...] Team Providers + +------+ + | Care [place] Man Name | Role | Phone | + [...] [place] | | | | | | [address] | | | | | | [phone] | | | +--------+ + + + [...] | | | | | [place] [address] | | | | | | [phone] | | | | | | | | +--------+---------+ + + + documented as of this encounter Visit Diagnoses Not on filedocumented in this encounter"
--- OUTSIDE RECORDS SUMMARY | ~2019-12-29 | XMS | Encounter Summary ---
Demographics + + + | Address | [address] | | | [place] [address] | + + + | Home Phone | | + + + | Preferred Language | Unknown | + + + | Marital Status | | + + + | Latter Day Affiliation | Unknown | + + + | Race | or | + + + | Ethnic Group | Not or | + + + Author + + + | Author | [facility] | | | and [place] | + + + | Organization | [facility] | | | [...] Team Providers + +------+ + | Care Road Inspector Name | Role | Phone | + +------+ + | Denis Galindo DO | PCP | | + +------+ + Encounter Details +--------+ + + + + | Date | Type | Department | Care Team | Description | +--------+ + + + + | 07/29/ | Abstract | [facility] | Kei Rao | | | 2015 | | [facility] [address] | | | | | [address] | [address] [place] | | | | | [place], [place] | [place] [address] | | | | | [address] | [phone] | | | | | [phone] | | | +--------+ + + + [...] | 0 Standard drinks | 0.0 | RARE | | | or equivalent | | | + + +---------+ + + + [...] | | | | | | [place] [address] | | | | | | [phone] | | | | | | | | +--------+---------+ + + + documented as of this encounter Visit Diagnoses Not on filedocumented in this encounter"
--- OUTSIDE RECORDS SUMMARY | ~2019-12-29 | XMS | Encounter Summary ---
Demographics + + + | Address | [address] | | | [place] [address] | + + + | Home Phone | | + + + | Preferred Language | Unknown | + + + | Marital Status | | + + + | Hinduism Affiliation | Unknown | + + + [...] Team Providers + +------+ + | Care Accounts Payable Professional Name | Role | Phone | + [...] | 10/28/ | Home Care | [facility] | Shoshana Caldwell, | SN REPEAT VISIT | | 2019 | Visit | [place] [address] | RN | | | | | [place] | | | | | | [address] | | | | | | [phone] | | | +--------+ + + + [...] she had too much sadness from mothers blossom cortes to celebrate. Mother over a year ago. Pressure/yeast issue is improved a nd pt wishes to continue with nystatin powder rather than dressing. R RN to see pt next week and weekly for CP , skin, meds and depression. Still awaiting orde rs for FOXING CLOSER, RT, DT Clinician prompt: Per CDC Guidelines, positive screen for countries that have a Level 3 Travel Health Notice: [place]: [place], [place], [facility] Europe ([facility]): [place], [place], [place], [place], [place], [place], [place] , [place], Greece, [place], [place], [place], [place], [place], [place], [place], [facility], [place], [place], [place], [place], [place], [place], [place], [place], [place], [facility], [place], [facility] [place] and [place]: [place], [place], [place], [place], [place] Indicate positive screen if: Answer to any question 1-5 is yes or answer to question 6 indicates travel to a Level 3 anam tination. Consult with operations and maintenance manager prior to visit. documented in this encounter Plan of Treatment +--------+---------+ + + + | Date | Type | Specialty | Care Team | Description | +--------+---------+ + + + | 01/22/ | Office | Cardiology | MaxZuhair knapp | | | 2019 | Visit | | MD Walker [address] | | | | | | [place] [address] | | | | | | [place] [address] | | | | | | [phone] | | | | | | | | +--------+---------+ + + + documented as of this encounter Visit Diagnoses Not on filedocumented in this encounter Home Health Visit - Care Plan + + | Visit Type - SN - REPEAT VISIT | | Discipline - Alf | + + + + +--------+--------+ + [...] | | scheduled/d | n | | Alf | | | | ocumented | scheduled/d [...] | linked to | interventio | | Alf, | | 20 | | scheduled/d | [...] | linked to | interventio | | Alf | | 20 | | scheduled/d | [...] | | scheduled/d | ns | | Alf | | | | ocumented | scheduled/d [...] | | scheduled/d | ns | | Alf | | | | ocumented | scheduled/d [...] | | | | n | | Alf | | | | | scheduled/d | [...] | linked to | interventio | | Alf | | 20 | | scheduled/d | [...] +--------+--------+ + | Diabetic Foot | Problem: HH SHARED | | | | | Assessment | DIABETIC FOOT | Comple | | | | Description: | CAREGoal: HH SN | nellie | | | | [...] | | and Skin Care | ManagementGoal: | Comple | | | | Description: [...] | | | Description: | ManagementGoal: | Comple | | | | Measure [...]
--- OUTSIDE RECORDS SUMMARY | ~2019-12-29 | XMS | Encounter Summary ---
Demographics + + + | Address | [address] | | | [place] [address] | + + + | Home Phone | | + + + | Preferred Language | Unknown | + + + | Marital Status | | + + + | Taoist Affiliation | Unknown | + + + | Race | or | + + + | Ethnic Group | Not or | + + + Author + + + | Author | [facility] | | | and [place] | + + + | Organization | [facility] | | [...] Team Providers + +------+ + | Care Pharmaceutical Specialty Representative Name | Role | Phone | + +------+ + | eMll Bautista | PCP | | + +------+ [...] | +--------+ + + + + | 10/31/ | Home Care | [facility] | Yulissa Gann, | TELEPHONE ENCOUNTER | | 2019 | Visit | [place] [address] | [place] | | | | | [place] | | | | | | [address] | | | | | | [phone] | | | +--------+ + + + [...] | | | | | [place] [address] | | | | | | [phone] | | | | | | | | +--------+---------+ + + + documented as of this encounter Visit Diagnoses Not on [facility]"
--- OUTSIDE RECORDS SUMMARY | ~2019-12-29 | XMS | Encounter Summary ---
Demographics + + + | Address | [address] | | | [place] [address] | + + + | Home Phone | | + + + | Preferred Language | Unknown | + + + | Marital Status | | + + + | Uatsdin Affiliation | Unknown | + + + [...] Team Providers + +------+ + | Care Career Services Manager Name | Role | Phone | + [...] Visit | [place] [address] | EYE TECHNICIAN [address] | | | | | [place] | [place] | | | | | [address] | [address] | | | | | [phone] | | | +--------+ + + + [...] | | | | | [place] [address] | | | | | | [phone] | | | | | | | | +--------+---------+ + + + documented as of this encounter Visit Diagnoses Not on filedocumented in this encounter"
--- OUTSIDE RECORDS SUMMARY | ~2019-12-29 | XMS | Encounter Summary ---
Demographics + + + | Address | [address] | | | [place] [address] | + + + | Home Phone | | + + + | Preferred Language | Unknown | + + + | Marital Status | | + + + | Rastafari Affiliation | Unknown | + + + | Race | or | + + + | Ethnic Group | Not or | + + + Author + + + | Author | [facility] | | | and [place] | + + + | Organization | [facility] | | | and [...] Team Providers + +------+ + | Care Motor Equipment Captain Name | Role | Phone | + [...] 10/29/ | Home Care | [facility] [place] | Bonnie Prince, PT | CASE COMMUNICATION | | 2020 | Visit | [place] [address] | | | | | | [place] | | | | | | [address] | | | | | | [phone] | | | +--------+ + + + [...] | | | | | [place] [address] | | | | | | [phone] | | | | | | | | +--------+---------+ + + + documented as of this encounter Visit Diagnoses Not on filedocumented in this encounter"
--- OUTSIDE RECORDS SUMMARY | ~2019-12-29 | XMS | Encounter Summary ---
Demographics + + + | Address | [address] | | | [place] [address] | + + + | Home Phone | | + + + | Preferred Language | Unknown | + + + | Marital Status | | + + + | Christian Affiliation | Unknown | + + + | Race | or | + + + | Ethnic Group | Not or | + + + Author + + + | Author | [facility] | | | and [place] | + + + | Organization | [facility] | | | [...] Team Providers + +------+ + | Care Access Director Name | Role | Phone | + [...] [place] [address] | [address] [facility] | | | | | [place] | [place] [address] | | | | | [address] | [phone] | | | | | [phone] | | | +--------+ + + + [...] | | | | | [place] [address] | | | | | | [phone] | | | | | | | | +--------+---------+ + + + documented as of this encounter Visit Diagnoses Not on filedocumented in this encounter"
--- OUTSIDE RECORDS SUMMARY | ~2019-12-29 | XMS | Encounter Summary ---
Demographics + + + | Address | [address] | | | [place] [address] | + + + | Home Phone | | + + + | Preferred Language | Unknown | + + + | Marital Status | | + + + | Orthodox Affiliation | Unknown | + + + | Race | or | + + + | Ethnic Group | Not or | + + + Author + + + | Author | [facility] | | | and [place] | + + + | Organization | [facility] | | | and [...] Team Providers + +------+ + | Care Lathe Set Up Person Name | Role | Phone | + [...] | | | [address] [place] | [place] [address] | | | | | [facility] [place] [address] | | | | | | [phone] | | | +--------+ + + + [...] [place] | | | | | | [place] [address] | | | | | | [phone] | | | | | | | [...]
--- OUTSIDE RECORDS SUMMARY | ~2019-12-29 | XMS | Encounter Summary ---
Demographics + + + | Address | [address] | | | [place] [address] | + + + | Home Phone | | + + + | Preferred Language | Unknown | + + + | Marital Status | | + + + | Mandaen Affiliation | Unknown | + + + | Race | or | + + + | Ethnic Group | Not or | + + + Author + + + | Author | [facility] | | | and [place] | + + + | Organization | [facility] | | [...] Team Providers + +------+ + | Care Melt Superintendant Name | Role | Phone | + [...] Visit | [place] [address] | TRUCK WASHER [address] | | | | | [place] | [place] | | | | | [address] | [address] | | | | | [phone] | | | +--------+ + + + [...] this encounter Miscellaneous Notes Home Health - [employer], TRUCK WASHER - 11/08/2019 10:03 AM PDT1) Are you [...] Level 3 Travel Health Notice: [place]: [place], [place], [facility] [place] Europe ([facility]): [place], [place], [place], [place], [place], [place], [place] , [place], Greece, [place], [place], [place], [place], [place], [place], [place], [place], [place], [place], [place], [place], [place], [place], [place], [place], [place], [facility], [place], [facility] [place] and [place]: [place], [place], [place], [place], [place] Indicate positive screen if: Answer to any question 1-5 is yes or answer to question 6 indicates travel to a Level 3 anam tination. Consult with pension fund manager prior to visit. Subjective: pt using rolling stool for mobility at therapist arrival. Pt has ongoing tool and die designer al/intrinsic factors that may affect outcomes including [...] W | | | | | | [address] [place] | | | | | | [place] [address] | | | | | | [phone] | | | | | | | [...]
--- OUTSIDE RECORDS SUMMARY | ~2019-12-29 | XMS | Encounter Summary ---
Demographics + + + | Address | [address] | | | [place] [address] | + + + | Home Phone | | + + + | Preferred Language | Unknown | + + + | Marital Status | | + + + | Mosque Affiliation | Unknown | + + + | Race | or | + + + | Ethnic Group | Not or | + + + Author + + + | Author | [facility] | | | and [place] | + + + | Organization | [facility] | | | [...] Team Providers + +------+ + | Care Living Manager Name | Role | Phone | [...] ST | | | | | [address] [place] | [place] | | | | | [address] | [address] | | | | | [phone] | | | +--------+ + + + [...] | | | | | [place] [address] | | | | | | [phone] | | | | | | | | +--------+---------+ + + + documented as of this encounter Visit Diagnoses Not on filedocumented in this encounter"
--- OUTSIDE RECORDS SUMMARY | ~2019-12-29 | XMS | Encounter Summary ---
Demographics + + + | Address | [address] | | | [place] [address] | + + + | Home Phone [...] + | Author | [facility] | | | and [place] | + + + | Organization | [facility] | | | and [...] Team Providers + +------+ + | Care Screen Printing Supervisor Name | Role | Phone | [...] + | 12/11/ | Home Care | [facility] | Rebecca Mancini | CASE COMMUNICATION | | 2019 | Visit | [place] [address] | | | | | | [place] | | | | | | [address] | | | | | | [phone] | | | +--------+ + + + [...] | | | | | [place] [address] | | | | | | [phone] | | | | | | | | +--------+---------+ + + + documented as of this encounter Visit Diagnoses Not on filedocumented in this encounter"
--- OUTSIDE RECORDS SUMMARY | ~2019-12-29 | XMS | Encounter Summary ---
Demographics + + + | Address | [address] | | | [place] [address] | + + + | Home Phone | | + + + | Preferred Language | Unknown | + + + | Marital Status | | + + + | Methodist Affiliation | Unknown | + + + | Race | or | + + + | Ethnic Group | Not or | + + + Author + + + | Author | [facility] | | | and [place] | + + + | Organization | [facility] | | | [...] Team Providers + +------+ + | Care Complex Director Name | Role | Phone | + +------+ + | Denis Galindo DO | PCP | | + +------+ + Encounter Details +--------+ + + + + | Date | Type | Department | Care Team | Description | +--------+ + + + + | 08/04/ | Hospital | [facility] | Kei Rao | Low back pain, | | 2016 | Encounter | MED [facility] XRAY [address] | unspecified back | | | | [place] | [address] [place] | pain laterality, | | | | [place] [address] | [place] [address] | with sciatica | | | | [phone] | [phone] | presence unspecified | | | | [...] W | | | | | | [address] [place] | | | | | | [place] [address] | | | | | | [phone] | | | | | | | [...] + + | Performing | Address | City[facility]State[facility] | Phone Number | | Organization | | | | + + + + + | [address] | [address] | [place] | [phone] | | [facility] | | [address] | | | - IMAGING | | | | + + + + + documented in this encounter Visit Diagnoses + + | Diagnosis | + + | Low back pain, unspecified back pain laterality, with sciatica presence unspecified | + + documented in this encounter"
--- OUTSIDE RECORDS SUMMARY | ~2019-12-29 | XMS | Clinical Summary ---
Demographics + + + | Address | [address] | | | [place] [address] | + + + | Home Phone | | + + + | Preferred Language | Unknown | + + + | Marital Status | | + + + | Protestant Affiliation | Unknown | + + + | Race | or | + + + | Ethnic Group | Not or | + + + Author + + + | Author | [facility] | | | and [place] | + + + | Organization | [facility] | | | and [place] | + + + | Address | Unknown | + + + | Phone | Unavailable | + + + Support + + +---------+ + | Name | Relationship | Address | Phone | + + +---------+ + | Harshil Woody | ECON | Unknown | | + + +---------+ + Care Team Providers + +------+ + | Care Fashion Director Name | Role | Phone | + +------+ + | Mell Bautista | PCP | | + +------+ + Allergies + + + + + + | Active Allergy | Reactions | Severity | Noted | Comments | | | | | Date | | + + + + + + | Pregabalin | | | 07/30/19 | PERIPHERAL EDEMA | | | | | 16 | | + + + + + + Medications + + + +---------+------+------+-------+ | Medication | Sig | Dispensed | Refills | Star | End | Statu | | | | | | t | Date | s | | | | | | Date | | | + + + +---------+------+------+-------+ | gabapentin | Take 600 mg by mouth | | 0 | | | Activ | | (NEURONTIN) 300 mg | 4 times daily. | | | | | e | | capsule | | | | | | | + + + +---------+------+------+-------+ | | Take 1 tablet by | | 0 | | | Activ | | HYDROcodone-acetamin | mouth every 6 hours | | | | | e | | ophen (NORCO) 10-325 | as needed for Pain. | | | | | | | mg per tablet | | | | | | | + + + +---------+------+------+-------+ | methocarbamol | Take 750 mg by mouth | | 0 | 07/2 | | Activ | | (ROBAXIN) 750 mg | 3 times daily. | | | 05/13 | | e | | tablet | | | | 20 | | | + + + +---------+------+------+-------+ | amitriptyline | Take 20 mg by mouth | | 0 | | | Activ | | (ELAVIL) 10 mg | nightly. | | | | | e | | tablet | | | | | | | + + + +---------+------+------+-------+ | lovastatin | Take 20 mg by mouth | | 0 | | | Activ | | (MEVACOR) 20 mg | nightly. | | | | | e | | tablet | | | | | | | + + + +---------+------+------+-------+ | metFORMIN | Take 500 mg by mouth | | 0 | | | Activ | | (GLUCOPHAGE) 500 mg | daily (with | | | | | e | | tablet | breakfast). | | | | | | + + + +---------+------+------+-------+ | cholecalciferol | Take 5,000 Units by | | 0 | | | Activ | | (VITAMIN D-3) 5000 | mouth Daily. | | | | | e | | units TABS | | | | | | | + + + +---------+------+------+-------+ | Multiple Vitamin | Take 1 tablet by | | 0 | | | Activ | | (THERAGRAN PO) | mouth Daily. | | | | | e | + + + +---------+------+------+-------+ | diclofenac | Take 75 mg by mouth | | 0 | | | Activ | | (VOLTAREN) 75 mg EC | 2 times daily. | | | | | e | | tablet | | | | | | | + + + +---------+------+------+-------+ | cholecalciferol | Take 1,000 Units by | | 0 | | | Activ | | (VITAMIN D-3) 1,000 | mouth Daily. | | | | | e | | units capsule | | | | | | | + + + +---------+------+------+-------+ | ferrous sulfate | Take 325 mg by mouth | | 0 | | | Activ | | 325 mg tablet | daily (with | | | | | e | | | breakfast). | | | | | | + + + +---------+------+------+-------+ | insulin aspart | Inject 35-45 Units | | 0 | 07/3 | | Activ | | protamine-insulin | under the skin 2 | | | 1/20 | | e | | aspart (NOVOLOG MIX | times daily (with | | | 20 | | | | 70/30 FLEXPEN) 100 | breakfast & dinner). | | | | | | | units/mL injection | Patient is taking | | | | | | | pen | 60 units in am and | | | | | | | | 50 units in evening | | | | | | + + + +---------+------+------+-------+ | UNABLE TO FIND | Twice daily as | | 0 | | | Activ | | | needed. Med Name: | | | | | e | | | Bio freeze | | | | | | + + + +---------+------+------+-------+ | lidocaine | Place 1 patch onto | 30 | 0 | 06/2 | | Activ | | (LIDODERM) 5% patch | the skin Daily Apply | patch | | 4/20 | | e | | | for 12 hours, then | | | 20 | | | | | remove for 12 | | | | | | | | hours.. | | | | | | + + + +---------+------+------+-------+ | miconazole | For inner thigh skin | 30 g | 0 | 06/2 | | Activ | | (MICATIN) 2% powder | infection. | | | 4/20 | | e | | | | | | 20 | | | + + + +---------+------+------+-------+ | carvedilol (COREG) | Take 1 tablet by | 60 | 0 | 06/2 | | Activ | | 3.125 mg tablet | mouth 2 times daily. | tablet | | 4/20 | | e | | | | | | 20 | | | + + + +---------+------+------+-------+ | ciprofloxacin | Take 1 tablet by | 12 | 0 | 06/2 | | Activ | | (CIPRO) 500 mg | mouth 2 times daily. | tablet | | 4/20 | | e | | tablet | | | | 20 | | | + + + +---------+------+------+-------+ | aspirin (ASPIRIN | Take 1 tablet by | 30 | 0 | 06/2 | | Activ | | ADULT LOW STRENGTH) | mouth Daily. | tablet | | 4/20 | | e | | 81 MG EC tablet | | | | 20 | | | + + + +---------+------+------+-------+ | Cyanocobalamin | Take 500 mg by mouth | | 0 | 07/3 | | Activ | | (VITAMIN B 12 PO) | Daily. | | | 0/20 | | e | | | | | | 20 | | | + + + +---------+------+------+-------+ | levothyroxine | Take 50 mcg by mouth | | 0 | 073 | | Activ | | (SYNTHROID) 50 mcg | every morning | | | 0/20 | | e | | tablet | (before breakfast). | | | 20 | | | + + + +---------+------+------+-------+ | Ascorbic Acid | Take 1,000 mg by | | 0 | 07 | | Activ | | (VITAMIN C) 1000 MG | mouth Daily. | | | 9 | | e | | tablet | | | | 20 | | | + + + +---------+------+------+-------+ Active Problems + + + | Problem | Noted Date | + + + | Elevated troponin | 11/18/2019 | + + + + + | Overview: Echocardiogram September 2019 shows moderate right | | atrial dilatation. Normal left ventricular size with a mild | | concentric left ventricular hypertrophy. Left ventricular | | systolic function is preserved. LVEF is 55%. Grade 1 left | | ventricular diastolic dysfunction. Moderate right ventricular | | dilatation with a mild eccentric left ventricular hypertrophy. | | Right ventricular systolic function is preserved. Mildly | | thickened and calcified trileaflet aortic valve with adequate | | opening. There is aortic valve sclerosis without significant | | aortic valve stenosis. Mildly thickened and calcified mitral | | valve suggesting myxomatous change. Mild mitral annular | | calcification. Mild central tricuspid valve regurgitation. Severe | | pulmonary hypertension with a peak systolic pressure of 85 to 90 | | mmHg. Dilated IVC without respiratory collapse suggesting fluid | | retention. No previous echocardiogram for comparison | + + + +---+ | Morbid obesity | | + +---+ | Mixed hyperlipidemia | | + +---+ | Hypertensive disorder | | + +---+ | Type 2 diabetes, uncontrolled, with neuropathy | | + +---+ | Diabetic peripheral neuropathy | | + +---+ Encounters +--------+ + + + + | Date | Type | Specialty | Care Team | Description | +--------+ + + + + | 12/11/ | Home Care | Home Health Services | Annemarie Greene, | SN DISCHARGE (AFTER | | 2019 | Visit | | RN | TRANSFER NO NAYA/ONE | | | | | | TIME OPEN) | +--------+ + + + + | 12/11/ | Home Care | Home Health Services | Rebecca Mancini | CASE COMMUNICATION | | 2019 | Visit | | | | +--------+ + + + + | 12/01/ | Home Care | Home Health Services | Annemarie Greene, | TRSFR W/ARGENIS D/C | | 2019 | Visit | | RN | ([place]) | +--------+ + + + + | 11/28/ | Home Care | Home Health Services | Rebecca Mancini | CASE COMMUNICATION | | 2019 | Visit | | | | +--------+ + + + + | 11/28/ | Home Care | Home Health Services | Triston Holley | CASE COMMUNICATION | | 2019 | Visit | | DA Mueller | | +--------+ + + + + | 11/28/ | Home Care | Home Health Services | Eugenio Romeo | CASE COMMUNICATION | | 2020 | Visit | | M, OT | | +--------+ + + + + | 11/27/ | Home Care | Home Health Services | Yulissa Gann, | TELEPHONE ENCOUNTER | | 2019 | Visit | | RN | | +--------+ + + + + | 11/27/ | Home Care | Home Health Services | Grupo Valadez, | TELEPHONE ENCOUNTER | | 2019 | Visit | | RN SURGICAL PCU | | +--------+ + + + + | 11/24/ | Home Care | Home Health Services | Grupo Valadez, | TELEPHONE ENCOUNTER | | 2019 | Visit | | RN SURGICAL PCU | | +--------+ + + + + | 11/21/ | Home Care | Home Health Services | Eugenio Romeo | OT REASSESSMENT | | 2019 | Visit | | M, OT | (COUNT OR 30 DAY) | +--------+ + + + + | 11/21/ | Home Care | Home Health Services | Medina Cruz, | SN REPEAT VISIT | | 2019 | Visit | | RN | | +--------+ + + + + | 11/20/ | Home Care | Home Health Services | Triston Holley | CASE COMMUNICATION | 2019 | Visit | | DA Mueller | | +--------+ + + + + | 11/14/ | Home Care | Home Health Services | Triston Holley | PIPE RECOVERY SPECIALIST SECONDARY EVAL | 2019 | Visit | | DA Mueller | | +--------+ + + + + | 11/14/ | Home Care | Home Health Services | Eugenio Romeo | OT REPEAT VISIT | | 2019 | Visit | | M, OT | | +--------+ + + + + | 11/14/ | Home Care | Home Health Services | Rayna | RT REPEAT VISIT | | 2019 | Visit | | Serena Rubio RRT | | +--------+ + + + + | 11/14/ | Home Care | Home Health Services | Hemal Sequeira, PT | CASE COMMUNICATION | | 2019 | Visit | | | | +--------+ + + + + | 11/14/ | Abstract | Cardiology | Zuhair Lee | | | 2019 | | | MD Walker | | +--------+ + + + + | 11/11/ | Home Care | Home Health Services | Hemal Sequeira, PT | PT REASSESSMENT | | 2019 | Visit | | | (COUNT OR 30 DAY) | +--------+ + + + + | 11/11/ | Home Care | Home Health Services | Medina Cruz, | SN REPEAT VISIT | | 2019 | Visit | | RN | | +--------+ + + + + | 11/07/ | Home Care | Home Health Services | Grupo Valadez, | PT REPEAT VISIT | | 2019 | Visit | | RN SURGICAL PCU | | +--------+ + + + + | 11/07/ | Home Care | Home Health Services | Eugenio Romeo | KEVIN COMMUNICATION | | 2019 | Visit | | M, MARIUM | | +--------+ + + + + | 11/06/ | Home Care | Home Health Services | Shoshana Caldwell, | SN REPEAT VISIT | | 2019 | Visit | | RN | | +--------+ + + + + | 11/04/ | Home Care | Home Health Services | Shoshana Caldwell, | CASE COMMUNICATION | | 2019 | Visit | | RN | | +--------+ + + + + | 10/31/ | Home Care | Home Health Services | Eugenio Romeo | OT SECONDARY EVAL | | 2019 | Visit | | Jermaine OT | | +--------+ + + + + | 10/31/ | Home Care | Home Health Services | Yulissa Gann, | TELEPHONE ENCOUNTER | | 2019 | Visit | | RN | | +--------+ + + + + | 10/30/ | Home Care | Home Health Services | Pablo Nielsen, | PT SECONDARY EVAL | | 2019 | Visit | | PT | | +--------+ + + + + | 10/29/ | Home Care | Home Health Services | Bonnie Prince, PT | CASE COMMUNICATION | | 2019 | Visit | | | | +--------+ + + + + | 10/28/ | Home Care | Home Health Services | Shoshana Caldwell, | SN REPEAT VISIT | | 2019 | Visit | | RN | | +--------+ + + + + | 10/27/ | Home Care | Home Health Services | Pablo Nielsen, | CASE COMMUNICATION | | 2019 | Visit | | PT | | +--------+ + + + + | 10/27/ | Home Care | Home Health Services | Eugenio Romeo | CASE COMMUNICATION | | 2019 | Visit | | M, OT | | +--------+ + + + + | 10/23/ | Home Care | Home Health Services | Shoshana Caldwell, | SN SOC ([place]) | | 2019 | Visit | | RN | | +--------+ + + + + | 10/21/ | Imaging | Radiology | Provider, | | | 2019 | Exam | | MD Edgardo | | +--------+ + + + + | 10/21/ | Imaging | Radiology | Provider, | | | 2019 | Exam | | MD Edgardo | | +--------+ + + + + | 10/11/ | Hospital | | Daniel Martínez MD | Elevated troponin; | | 2019 - | Encounter | | | Acute cystitis | | | | | | without hematuria; | | 10/15/ | | | | Sepsis, due to | | 2019 | | | | unspecified | | | | | | organism, | | | | | | unspecified whether | | | | | | acute organ | | | | | | dysfunction present | | | | | | (HCC) | +--------+ + + + + from Last 3 Months Family History + + +--------+ + | Medical History | Relation | Name | Comments | + + +--------+ + | Other (see comment) | Brother | | LEUKEMIA | + + +--------+ + | Lung cancer | Father | MARMATTI | | + + +--------+ + | No known problems | Maternal | | | | | Grandfath | | | | | er | | | + + +--------+ + | Kidney disease | Maternal | | | | | Grandmoth | | | | | er | | | + + +--------+ + | Other (see comment) | Maternal | | LUNG PROBLEMS | | | Grandmoth | | | | | er | | | + + +--------+ + | Arthritis | Mother | SKYLA | | + + +--------+ + | Stroke | Mother | SKYLA | | + + +--------+ + | No known problems | Paternal | | | | | Grandfath | | | | | er | | | + + +--------+ + | Alzheimer's disease | Paternal | | | | | Grandmoth | | | | | er | | | + + +--------+ + | Depression | Sister | | | + + +--------+ + | Diabetes | Sister | | | + + +--------+ + | Depression | Sister | | | + + +--------+ + + +--------+ + + | Relation | Name | Status | Comments | + +--------+ + + | Brother | | | | | | | (Age | | | | | 38) | | + +--------+ + + | Brother | | | | + +--------+ + + | Father | MARLIN | | | | | | (Age | | | | | 65) | | + +--------+ + + | Maternal Grandfather | | | | + +--------+ + + | Maternal Grandmother | | | | | | | (Age | | | | | 63) | | + +--------+ + + | Mother | SKYLA | Alive | | + +--------+ + + | Paternal Grandfather | | | | + +--------+ + + | Paternal Grandmother | | | | | | | (Age | | | | | 92) | | + +--------+ + + | Sister | | Alive | | + +--------+ + + | Sister | | Alive | | + +--------+ + + | Sister | | | | + +--------+ + + | Sister | | | | + +--------+ + + Social History + +-------+ +--------+------+ [...] + + + Last Filed Vital Signs + + + [...] | | + + + + + Plan of Treatment +--------+---------+ + + + | Date | Type | Specialty | Care Team | Description | +--------+---------+ + + + | 01/22/ | Office | Cardiology | Zuhair Lee | | | 2020 | Visit | | MD Walker [address] | | | | | [address] | | | | | | [place] [address] | | | | | | [phone] | | | | | | | | +--------+---------+ + + + + + + + + | Health Maintenance | Due Date | Last | Comments | | | | Done | | + + + + + | Hepatitis C | | | | | Screening | 3 | | | + + + + + | Med Mgmt: Vit D | | | | | | 3 | | | + + + + + | Medication | | | | | Management | 3 | | | + + + + + | Vaccine: | | | | | Pneumococcal 19-64 | 9 | | | | (1 of 1 - PPSV23) | | | | + + + + + | Diabetic Eye Exam | | | | | | 1 | | | + + + + + | Diabetic Foot Exam | | | | | | 1 | | | + + + + + | Vaccine: | | | | | Dtap/Tdap/Td (1 - | 2 | | | | Tdap) | | | | + + + + + | Cervical Cancer | | | | | Screening (Pap) | 3 | | | + + + + + | Colorectal Cancer | | | | | Screening | 3 | | | | (Colonoscopy) | | | | + + + + + | Vaccine: Zoster (1 | | | | | of 2) | 3 | | | + + + + + | Breast Cancer | | | | | Screening | 8 | | | + + + + + | Adult Annual | | | | | Wellness Visit | 0 | | | + + + + + | Microalbumin | | | | | Screening | 0 | | | + + + + + | Vaccine: Influenza | | | | | (#1) | 0 | | | + + + + + | Hemoglobin A1c | | 10/23/19 | | | Screening | 1 | 20 | | + + + + + | Med Mgmt: HBA1C | | 10/23/19 | | | | 1 | 20 | | + + + + + | Med Mgmt: TSH | | 10/13/19 | | | | 1 | 20 | | + + + + + | Med Mgmt: BUN | | 10/23/19 | | | | 1 | 20, | | | | | 10/23/19 | | | | | 20, | | | | | 10/16/19 | | | | | 20, | | | | | Addition | | | | | al | | | | | history | | | | | exists | | + + + + + | Med Mgmt: Cr | | 10/23/19 | | | | 1 | 20, | | | | | 10/16/19 | | | | | 20, | | | | | 10/15/19 | | | | | 20, | | | | | Addition | | | | | al | | | | | history | | | | | exists | | + + + + + | Med Mgmt: eGFR | | 10/23/19 | | | | 1 | 20, | | | | | 10/23/19 | | | | | 20, | | | | | 10/16/19 | | | | | 20, | | | | | Addition | | | | | al | | | | | history | | | | | exists | | + + + + + Procedures + +--------+ + + + | [...] +--------+ + + + | EXTERNAL LAB: [facility] | Routin | 10/23/2019 | | Results [...] section. | + +--------+ + + + from Last 3 Months Results External Lab: BUN (10/23/2019) + +-------+ + [...] + +-------+ + + + External Lab: CBC (10/23/2019)Only the most recent of 2 results within the time period is i ncluded. + +-------+ + + + | Component [...] + + | Blood | + + IMAGING REPORT - EXTERNAL SCAN (10/23/2019 12:00 [...] unspecified provider. | | + + + CBC w/ Auto Differential [...] + + | Blood | + + Hemoglobin A1C (10/23/2019) + +-------+ + + [...] + + | Blood | + + Comprehensive Metabolic Panel (10/23/2019) + [...] + + | Blood | + + POC Glucose (10/16/2019 12:23 PM PDT)Only the most recent of 14 results within the time per iod is included. + +---------+ + + + | Component [...] [address] | [place] | [phone] | | [facility] | | [address] | | | - LABORATORY | | | | + + + + + CBC no Differential (10/16/2019 4:49 AM PDT)Only the most recent of 4 results within the period is included. + + + + + + | [...] + | [facility] | [address] | [place] | [phone] | | [facility] | | [address] | | | - LABORATORY | | | | + + + + + Magnesium (10/16/2019 4:49 AM PDT)Only the most recent of 4 results within the time period is included. + +---------+ + + + | Component | Value | Ref Range | Performed | Pathologist | | | | | At | Signature | + +---------+ + + + | Magnesium | 1.3 (L) | 1.6 - 2.6 mg/dL | [facility] | | | | [...] + | [facility] | [address] | [place] | [phone] | | [facility] | | [address] | | | - LABORATORY | | | | + + + + + Basic Metabolic Panel (10/16/2019 4:49 AM PDT)Only the most recent of 8 results within the time period is included. + + + + + + | [...] 2.47 (H) | 0.55 - 1.02 | [facility] | | | | | mg/dL | [facility] | | | | | | MEDICAL | | | | | | CENTER - | | | | | | LABORATORY | | + + + + + + | eGFR, | 20 (L)Comment: | >=60 | [facility] | | | non- | GLOMERULAR FILTRATION | mL/min/1.73m2 | [facility] | | | [place] | RATE,ESTIMATED | | MEDICAL | | | | mL/min/1.90c9Zciy than | | CENTER - | | [...] | | | | | mg/dL | [facility] | | | | | [...] [address] | [place] | [phone] | | [facility] | | [address] | | | - LABORATORY | | | | + + + + + Phosphorus (10/15/2019 4:55 AM PDT)Only the most recent of 2 results within the time perio d is included. + +-------+ + + + | Component | Value | Ref Range | Performed | Pathologist | | | | | At | Signature | + +-------+ + + + | Phosphorus | 5.0 | 2.4 - 5.1 mg/dL | [facility] | | | | | | [facility] | | | | | | [...] + | [facility] | [address] | [place] | [phone] | | [facility] | | [address] | | | - LABORATORY | | [...] | | | | | | n [place] | | | | | + +--------+ [...] | | | + +---------+ + + Hepatic Function Panel (10/14/2019 4:39 AM PDT)Only the most recent of 2 results within time period is included. + +---------+ + + + | Component [...] + | [facility] | [address] | [place] | [phone] | | [facility] | | [address] | | | - LABORATORY | | | | + + + + + Troponin I (10/14/2019 12:08 AM PDT)Only the most recent of 5 results within the time kristen pollard is included. + + + + + + | Component | Value | Ref Range | Performed | Pathologist | | | | | At | Signature | + + + + + + | Troponin I | 0.50 ()Comment: | <0.06 ng/mL | [facility] | | | | Comment:Reference | | [facility] | | | | Ranges: 0.00-0.06 = [...] | | | | | | [employer] | | | | | [...] [address] | [place] | [phone] | | [facility] | | [address] | | | - LABORATORY | | [...] cannot be excluded. | | | Ko Jeffery | | + + + + + [...] | | | + +---------+ + + TSH (10/13/2019 10:58 AM PDT) + +-------+ + + + | Component | Value | Ref Range | Performed | Pathologist | | | | | At | Signature | + +-------+ + + + | TSH | 1.01 | 0.55 - 4.78 | [facility] | | | | | uIU/mL | [facility] | | | | [...] + | [facility] | [address] | [place] | [phone] | | [facility] | | [address] | | | - LABORATORY | | [...] | | Urine | | | [facility] | | | Random | | | [...] [address] | [place] | [phone] | | [facility] | | [address] | | | - LABORATORY | | | | + + + + + Osmolality, Urine (10/13/2019 10:46 AM PDT) + +-------+ + + + | Component | Value | Ref Range | Performed | Pathologist | | | | | At | Signature | + +-------+ + + + | OSMO URINE | 331 | 300-1,000 | [facility] | | | | | mOsm/kg | [...] [address] | [place] | [phone] | | [facility] | | [address] | | | - LABORATORY | | [...] | | | | NIKKO PICKETT MD ([id number]) | | | | | | on [...] | | | + +---------+ + + Extra Lavender Top Tube (10/13/2019 [...] + | [facility] | [address] | [place] | [phone] | | [facility] | | [address] | | | - LABORATORY | | [...] | Time | | seconds | [facility] | | | | [...] + | [facility] | [address] | [place] | [phone] | | [facility] | | [address] | | | - LABORATORY | | | | + + + + + Lactic Acid (10/13/2019 3:55 AM PDT)Only the most recent of 2 results within the time scooby od is included. + +-------+ + + + | Component [...] + | [facility] | [address] | [place] | [phone] | | [facility] | | [address] | | | - LABORATORY | | [...] ST[facility] | [address] | [place] | [phone] | | [facility] | | [address] | | | - LABORATORY | | [...] | | Cells | | M/uL | . [facility] | | | | | | [...] Low IPF are consistent | | [facility] | | | Fraction | with a [...] | Preliminary studies have | | [facility] | | | s | indicated the [...] | Neutrophils | | K/uL | [facility] | | | | | | MEDICAL | | | | | | CENTER - | | | | | | LABORATORY | | + + + + + + | Absolute | 1.38 | 0.60 - 3.20 | [facility] | | | Lymphocytes | | K/uL | [facility] | | | | | | MEDICAL | | | | | | CENTER - | | | | | | LABORATORY | | + + + + + + | Absolute | 0.75 | 0.00 - 1.00 | [facility] | | | Monocytes | | K/uL | [facility] | | | | | | MEDICAL | | | | | | CENTER - | | | | | | LABORATORY | | + + + + + + | Absolute | 0.05 | 0.00 - 0.40 | [facility] | | | Eosinophils | | K/uL | [facility] | [...] | | Immature | | K/uL | [facility] | | | Granulocyte | | | MEDICAL | | | s | | | CENTER - | | | | | | LABORATORY | | + + + + + + | % nRBC | 0 | 0 - 2 per 100 | [facility] | | | | | WBCs | [facility] | | | | | | MEDICAL | | | | | | CENTER - | | | | | | LABORATORY | | + + + + + + | Absolute | 0.00 | 0.00 - 0.01 | [facility] | | | nRBC | | K/uL | [facility] | | | | [...] + | [facility] | [address] | [place] | [phone] | | [facility] | | [address] | | | - LABORATORY | | [...] [address] | [place] | [phone] | | [facility] | | [address] | | | - LABORATORY | | | | + + + + + CT Abdomen Pelvis wo Contrast (10/12/2019 12:05 [...] | | | + +---------+ + + LABS - EXTERNAL SCAN (10/12/2019 12:00 AM PDT) + + + | Narrative | Performed At | + + + | Ordered by an | | | unspecified provider. | | + + + XR Chest 1 Vw (10/12/2019 12:00 AM [...] | | | + +---------+ + + from Last 3 Months Insurance + +--------+ +--------+ +---------+--------+ | Payer | Benefi | Subscriber | Effect | Phone | Address | Type | | | t Plan | ID | christel | | | | | | / | | Dates | | | | | | Group | | | | | | + +--------+ +--------+ +---------+--------+ | MEDICARE | MEDICA | [id number] | 06/23/19 | [phone] | | Medica | | | RE | | 18-Pre | 5 | | re | | | PART A | | sent | | | | | | AND B | | | | | | + +--------+ +--------+ +---------+--------+ | [facility] | [employer] | [id number] | | | | Indemn | | SERVICE | YELLOW | | 016-Pr | | | ity | | | HAWK | | esent | | | | + +--------+ +--------+ +---------+--------+ + +--------+ +--------+ + + | Guarantor Name | Accoun | Relation to | Date | Phone | Billing Address | | | t Type | Patient | of | | | | | | | | | | + +--------+ +--------+ + + | Norbert Mckay | Person | Self [birth year] | [address] | | | al/Fam | | 1960 | [phone] | [place], [place] | | | joanna | | | 4 (Home) | [phone] | + +--------+ +--------+ + + | Norbert Mckay | Person | Self [birth year] | [address] | | | al/Fam | | 1961 | [phone] | [place] | | | joanna | | | 4 (Home) | [phone] | + +--------+ +--------+ + + Advance Directives + + + + + | Type | Date Recorded | Patient | Explanation | | | | Tool Checker | | + + + + + | Power of | | | | | Platen Press Feeder | | | | + + + + + | Advance | 08/05/2015 8:55 | | | | Directive | AM | | | + + + + + + + + + + | Code Status | Date | Date | Comments | | | Activated | Inactivated | | + + + + + | Full Code | 10/12/2019 | 10/16/2019 | | | | 6:52 PM | 4:16 PM | | + + + + +
--- OUTSIDE RECORDS SUMMARY | ~2019-12-29 | XMS | Encounter Summary ---
Demographics + + + | Address | [address] | | | [place] [address] | + + + | Home Phone | | + + + | Preferred Language | Unknown | + + + | Marital Status | | + + + | Yazdanism Affiliation | Unknown | + + + | Race | or | + + + | Ethnic Group | Not or | + + + Author + + + | Author | [facility] | | | and [place] | + + + | Organization | [facility] | | | [...] Team Providers + +------+ + | Care Middleware Solutions Architect Name | Role | Phone | + [...] | 12/11/ | Home Care | [facility] [place] | Annemarie Greene, | SN DISCHARGE (AFTER | | 2019 | Visit | [place] [address] | RN | TRANSFER NO NAYA/ONE | | | | [place] | | TIME OPEN) | | | | [address] | | | | | | [phone] | | | +--------+ + + + [...] | | | | | [place] [address] | | | | | | [phone] | | | | | | | | +--------+---------+ + + + documented as of this encounter Visit Diagnoses Not on filedocumented in this encounter"
--- OUTSIDE RECORDS SUMMARY | ~2019-12-29 | XMS | Encounter Summary ---
Demographics + + + | Address | [address] | | | [place] [address] | + + + | Home Phone | | + + + | Preferred Language | Unknown | + + + | Marital Status | | + + + | Buddhism Affiliation | Unknown | + + + | Race | or | + + + | Ethnic Group | Not or | + + + Author + + + | Author | [facility] | | | and [place] | + + + | Organization | [facility] | | | and [...] Team Providers + +------+ + | Care Label Designer Name | Role | Phone | [...] + | 11/07/ | Home Care | [facility] | Eugenio Romeo | CASE COMMUNICATION | | 2020 | Visit | [place] [address] | M, MARIUM | | | | | [place] | | | | | | [address] | | | | | | [phone] | | | +--------+ + + + [...] | | | | | [place] [address] | | | | | | [phone] | | | | | | | | +--------+---------+ + + + documented as of this encounter Visit Diagnoses Not on filedocumented in this encounter"
--- OUTSIDE RECORDS SUMMARY | ~2019-12-29 | XMS | Encounter Summary ---
Demographics + + + | Address | [address] | | | [place] [address] | + + + | Home Phone [...] | [facility] | | | and [place] | + + + | Organization | [facility] | | | [...] Team Providers + +------+ + | Care Cut Lace Machine Operator Name | Role | Phone [...] | 11/04/ | Home Care | [facility] | Shoshana Caldwell, | CASE COMMUNICATION | | 2020 | Visit | [place] [address] | [place] | | | | | [place] | | | | | | [address] | | | | | | [phone] | | | +--------+ + + + [...] | | | | | [place] [address] | | | | | | [phone] | | | | | | | | +--------+---------+ + + + documented as of this encounter Visit Diagnoses Not on filedocumented in this encounter"
--- OUTSIDE RECORDS SUMMARY | ~2019-12-29 | XMS | Encounter Summary ---
Demographics + + + | Address | [address] | | | [place] [address] | + + + | Home Phone | | + + + | Preferred Language | Unknown | + + + | Marital Status | | + + + | Mandaeism Affiliation | Unknown | + + + | Race | or | + + + | Ethnic Group | Not or | + + + Author + + + | Author | [facility] | | | and [place] | + + + | Organization | [facility] | | | and [...] Team Providers + +------+ + | Care Hazard Waste Handler Name | Role | Phone | + [...] + | 11/11/ | Home Care | [facility] [place] | Hemal Sequeira, PT | PT REASSESSMENT | | 2020 | Visit | [place] [address] | [address] [place] | (COUNT OR 30 DAY) | | | | [place], [place] | [place] [address] | | | | | [address] | [phone] | | | | | [phone] | | | +--------+ + + + [...] + + + | Blood Pressure | 140/90 | 11/12/2019 11:12 AM | | | | | PDT | | + + + + + | Pulse | 76 | 11/12/2019 11:12 AM | | | | | PDT | | + + + + + | Temperature | 36.6 C (97.9 F) | 11/12/2019 11:12 AM | | | | | PDT | | + + + + + | Respiratory Rate | - | - | | + + + + + | Oxygen Saturation | 95% | 11/12/2019 11:12 AM | | | | | PDT [...] documented as of this encounter Miscellaneous Notes [facility] - Hemal Sequeira, PT - 11/12/2019 11:00 AM PDT1) Are you or anyone you [...] Level 3 Travel Health Notice: [place]: [place], [place], [place] ([facility] Area): [place], [place], [place], [place], [place], [place], Sivan , [place], [place], [place], [place], [place], [place], [place], [place], [place], [facility], [place], [place], [place], [place], [place], [place], [place], [place], [place], [facility], [place], [facility] [place] and [place]: [place], [place], [place], [place], [place] Indicate positive screen if: Answer to any question 1-5 is yes or answer to question 6 indicates travel to a Level [facility]. Consult with superannuation funds manager prior to visit. S: Patient states that she is doing better with bed mobility. She has practicing counting while she walks and feels her O2 is a bit better. States they have ordered a bed cane and a stool to assist with getting into bed. B: Patient already sitting at edge of bed when PT arrived. States she is doing better w b ed mobility but still needs her to pull her up. Discussed seated HEP as provided by AQU[employer]ER last visit. She is doing that several times per day. PT had her walk 25 feet using a quad cane and wall. She was able to maintain O2 saturation above 90% throughout but quickly fatigued. She had about a 3-5 minute seated rest. Walked 12 feet and she desaturated to 7 9% and took about 1 minute to get back to mid 90s. PT told her to walk w assistance daily ( if she wants to) and then take a 20-30 minute break before attempting to walk back. Did not encourage this though but patient really wants to work on gait. Did ask her to add in STS 1-3 reps to tolerance twice per day. A: Patient needs O2 w activity. Worked w her on breathing w exercise. PT will request RT and O2. R: PT will need to extend PT into second 30 days. Patient wants to be able to get into he r truck and to take 1 step down to let her dogs in/out. documented in this encounter Plan of Treatment +--------+---------+ + + + | Date | Type | Specialty | Care Team | Description | +--------+---------+ + + + | 01/22/ | Office | Cardiology | Zuhair Lee | | | 2019 | Visit | | MD Walker [address] | | | | | | [place] [facility] | | | | | | [place] [address] | | | | | | [phone] | | | | | | | | +--------+---------+ + + + documented as of this encounter Visit Diagnoses Not on filedocumented in this encounter Home Health Visit - Care Plan + + | Visit Type - PT - REASSESSMENT VISIT | | Discipline - Physical Therapy | + + + + +--------+--------+ + + | Problem | Description | Start | Status | Goals | Interventio | | | | Date | | | ns | + + +--------+--------+ + + | HH PT IMPAIRED BED | Impaired bed | | | 1 goal | 1 goal | | MOBILITY | mobility | 10/31/19 | Active | linked to [...] + + +--------+-------+ + | HH PT BED MOBILITY | HH PT IMPAIRED BED | | No | | | Description: The | MOBILITY | Ongoin | | | | patient will | | g, | | | | transition supine | | progre | | | | to/from sit with or | | ssing | | | | without devices with | | | | | | contact guard | | | | | | assistance by | | | | | | 12/11.The patient | | | | | | and/or caregiver | | | | | | will understand and | | | | | | demonstrate safe bed | | | | | | mobility | | | | | | sequencing. | | | | | | Outcomes: The | | | | | | patient will reach | | | | | | maximal independence | | | | | | and safety with bed | | | | | | mobility. | | | | | + + +--------+-------+ + | HH PT GAIT/STAIRS | HH PT IMPAIRED | | No | desaturated to 79% on | | Description: The | GAIT | Ongoin | | RA after walking 13 feet | | patient will | | g, not | | on second attempt. | | ambulate 50 feet | | | | Maintained O2 to 94% | | using front-wheeled | | progre | | when she walked first 25 | | walker | | ssing | | feet. | | independently with | | | [...] | | Description: The | TRANSFERS | Ongoin | | | | patient and/or | | g, | | | | caregiver will | | progre | | | | understand and | | ssing | | | | demonstrate safe | [...] | | + + +--------+--------+ + | Bed Mobility | Problem: HH PT | | | | | Description: | IMPAIRED BED | Comple | | | | Instruct patient | MOBILITYGoal: HH PT | nellie | | | | and/or caregiver in | BED MOBILITY | | | | | bed mobility | | | | | | techniques to | | | | | | improve safety and | | | | | | independence. | | | | | + + +--------+--------+ + | Pt gait training | Problem: HH PT | | | | | Description: | IMPAIRED GAITGoal: | Comple | | | | Evaluate and | HH PT GAIT/STAIRS | nellie | | | | instruct patient | | | | | | and/or caregiver in | | | | | | gait training using | | | | | | front-wheeled walker | | | | | | no weight bearing | | | | | | restrictions | | | | | + + +--------+--------+ + | PT transfer | Problem: HH PT | | | | | training | IMPAIRED | Comple | | | | Description: | TRANSFERSGoal: HH PT | nellie | | | | Evaluate and | TRANSFERS | | | | | instruct patient | | | | | | and/or caregiver in | | | | | | safe transfers using | | | | | | appropriate body | | | | | | mechanics and | | | | | | necessary equipment. | | | | | + + +--------+--------+ + documented in this encounter"
--- OUTSIDE RECORDS SUMMARY | ~2019-12-29 | XMS | Encounter Summary ---
Demographics + + + | Address | [address] | | | [place] [address] | + + + | Home Phone | | + + + | Preferred Language | Unknown | + + + | Marital Status | | + + + | Yazidi Affiliation | Unknown | + + + | Race | or | + + + | Ethnic Group | Not or | + + + Author + + + | Author | [facility] | | | and [place] | + + + | Organization | [facility] | | | [...] Team Providers + +------+ + | Care Inspecting Engineer Name | Role | Phone | [...] | 10/23/ | Home Care | [facility] | Shoshana Caldwell, | SN SOC ([place]) | | 2020 | Visit | [place] [address] | RN | | | | | [place] | | | | | | [address] | | | | | | [phone] | | | +--------+ + + + [...] ate of . S- Patient admitted to [facility] following a hospitalization. Patient diagnosed with Sepsis [...] thigh posterior and medical concerns/assessment: Pt is wea k, has Sob with min exertion, Medications visualized [...] year ago. RN to request order for SERVICE AGENT for counseling, and community resourse, RT for Resp assessment and needs, and Bulk Station Agent for nutrition instruction. Pt has walker, but [...] education on prevention of [place] VID-19 spread perCDC protocols for prevention. Provided education on COVID-19 symptoms(Cou gh, fever, sore throat, SOB)and risk factors (underlying disease, recent travel, pt. conta ct with +COVID-19 person). Provided education on when to contact health care team coordinator scheduler a nd when to seek medical care. Emergency Response Planning: In process with patient. Pt/DPOA has the admit packet whic h contains emergency response plan individualized for patient. Refer to Gravity tool Patient/caregiver verbalized understanding. R- Patient would benefit from skilled HH intervention due to: wound care, risk for falls, r isk for skin breakdown and risk for rehospitalization. Patient will need PT to evaluate and develop individualized care plan, OT to evaluate and d evelop individualized care plan, SERVICE AGENT to evaluate and develop individualized care plan [...] Level 3 Travel Health Notice: [place]: [place], [place], [place] ([facility] Area): [place], [place], [place], [place], [place], [place], Sivan , [place], Greece, Hungary, Iceland, [place], [place], [place], [place], [place], [place], [place], [place], [place], [place], [place], [place], Isabel[place], [place], [place], [facility], [place], [facility] [place] and [place]: [place], [place], [place], [place], [place] Indicate positive screen if: Answer to any question 1-5 is yes or answer to question 6 indicates travel to a Level 3 anam tination. Consult with promotions firm accounts manager prior to visit. documented in this [...] | | | | | | [place] [address] | | | | | | [phone] | | | | | | | | +--------+---------+ + + + documented as of this encounter Visit Diagnoses Not on filedocumented in this encounter Home Health Visit - Care Plan + + | Visit Type - SN - OASIS START OF CARE | | Discipline - Usp | + + + + +--------+--------+ + + | Problem | Description | Start | Status | Goals | Interventio | | | | Date | | | ns | + + +--------+--------+ + + | Diabetes | Diabetes | | | 1 goal | 2 goal | | Disciplines: | | 10/24/19 | Active | linked to | interventio | | Usp | | 20 | | scheduled/d | [...] | | scheduled/d | n | | Usp | | | | ocumented | scheduled/d [...] | | scheduled/d | n | | Usp | | | | ocumented | scheduled/d [...] | linked to | interventio | | Usp, | | 20 | | scheduled/d | [...] | linked to | interventio | | Usp | | 20 | | scheduled/d | [...] | | scheduled/d | n | | Usp | | | | ocumented | scheduled/d [...] | | scheduled/d | n | | Usp | | | | ocumented | scheduled/d [...] | | | | n | | Usp | | | | | scheduled/d | [...] | linked to | interventio | | Usp | | 20 | | scheduled/d | [...] the patient | | diabetic | Goal: SN DIABETES | Comple | | for [...] patient and | | Description: | Goal: SN DIABETES | Comple | | caregiver on [...] + + +--------+--------+ + | Instruct in S | Problem: SN | | | | | and [...]
--- OUTSIDE RECORDS SUMMARY | ~2019-12-29 | XMS | Encounter Summary ---
Demographics + + + | Address | [address] | | | [place] [address] | + + + | Home Phone [...] Author | [facility] | | | and [place] | + + + | Organization | [facility] | | [...] Team Providers + +------+ + | Care Engine Dispatcher Name | Role | Phone | + [...] | 11/11/ | Home Care | [facility] | Medina Cruz, | SN REPEAT VISIT | | 2019 | Visit | [place] [address] | RN | | | | | [place] | | | | | | [address] | | | | | | [phone] | | | +--------+ + + + [...] + + + | Blood Pressure | 128/78 | 11/12/2019 10:27 AM | | | | | PDT | | + + + + + | Pulse | 80 | 11/12/2019 10:27 AM | | | | | PDT | | + + + + + | Temperature | 9.1 C (48.4 F) | 11/12/2019 10:27 AM | | | | | PDT | | + + + + + | Respiratory Rate | 12 | 11/12/2019 10:27 AM | | | | | PDT | | + + + + + | Oxygen Saturation | 96% | 11/12/2019 10:27 AM | | | | | PDT [...] Home Health - Medina Cruz RN - 11/12/2019 10:25 AM PDT1) Are you or anyone you live w [facility] experiencing any of the following symptoms? no [...] last 30 days? No Screening is: Negative S- alf visit for assessment of skin, medications, pain, depression and diabetes . B- 59 y/o obese female with diabetes, and yeast infeciton to bilateral groin, pannus and br east. Lives with who is able to assist with medicaiton and skin care. A- Talkative and pleasant, sitting at bedside waiting for nurse. No distress noted. Talks o penly with nurse about loss of mother and how that has effected her. Able to openly have a c onverstation of happy times and memories. Reviewed medications with patient and , doc balizes good understanding. Patient started taking Benifiber for constipation and taking marilyn ry other day with good results. Sol newman, does cooking. Patient reports anxiety when ambulating. Instructed in slowing breathing, pursed lip breathing and calmness. 02 sat s in mid 90's with converstation and rest. Skin to bliateral groin, pannus without redness o r drainage. Patient and keeping clean and dry. Patient reports "dresssings fell off not long after nurse left last week. Reinstructed in antifungal powder lightly and daily svetlana ansing. Verbalizes good understanding. Patient denies discomfort to areas. Patient reports u nimcole to keep MD appointment yesterday from pain to shoulders. Rescheduled for 11-20-19 R- Continue with skin care. Test blood sugars if able. documented in this encounter Plan of Treatment +--------+---------+ + + + | Date | Type | Specialty | Care Team | Description | +--------+---------+ + + + | 01/22/ | Office | Cardiology | Zuhair Lee | | 2019 | Visit | | MD Walker [address] | | | | | | [place] | | | | | | [place] [address] | | | | | | [phone] | | | | | | | [...] Management | | | 1 goal | 1 [...] the patient | | diabetic | Goal: [facility] DI[facility] | Comple | | for clinical [...] glucose | Problem: Diabetes | | | Patient not doing | | monitoring | Goal: [facility] | Comple | | blood sugar testing, | | Description: SN to | | nellie | | doesn't like to stick | | assess blood | | | | fingers. Is going to ask | | glucose levels or | | | | for monitor that is | | log as performed by | | | | changed only every 2 | | patient/caregiver. | | | | weeks and works with | | | | | | phone. | + + +--------+--------+ + | Instruct in Skin | Problem: SHARED | | | Reinstructed in | | Breakdown Prevention | AT RISK FOR PRESSURE | Comple | | prevention of skin | | Description: | ULCERGoal: Wound | nellie | | breakdown. Good skin | | Instruct the patient | pressure ulcer | | | care noted. | | and/or caregiver in | | [...] and | Problem: SHARED | | | Reinstructed in pain | | Address Pain | PAINGoal: PAIN | Comple | | management, Patient | | Description: | | nellie | | using medicaions with | | Monitor and address | | | | fair relief. | | pain through End of | | | | | | Episode of care. | | | | | + + +--------+--------+ + | Assess side | Problem: HH SN | | | Evaluate the | [...] Wound | Problem: Wound | | | Yeast infection much | | Description: | ManagementGoal: HH | Comple | | improved. Patient and | | Measure wound | SN WOUND MANAGEMENT | nellie | | keeping skin | | weekly. | | | | clean and dry, applying | | | | | | antifungial powder daily | | | | | | to bilateral groin, | | | | | | pannus and breast. No | | | | | | s/s of infection. | + + +--------+--------+ + documented in this encounter
--- OUTSIDE RECORDS SUMMARY | ~2019-12-29 | XMS | Encounter Summary ---
Demographics + + + | Address | [address] | | | [place] [address] | + + + | Home Phone | | + + + | Preferred Language | Unknown | + + + | Marital Status | | + + + | Restorationist Affiliation | Unknown | + + + | Race | or | + + + | Ethnic Group | Not or | + + + Author + + + | Author | [facility] | | | and [place] | + + + | Organization | [facility] | | | and [...] Team Providers + +------+ + | Care Health Claims Examiner Name | Role | Phone | + [...] | pain laterality, | | | | [place], [place] | [place] [address] | with sciatica | | | | [address] | [phone] | presence unspecified | | | | [phone] | | (Primary Dx) | +--------+ + [...] | | | | | [place] [address] | | | | | | [phone] | | | | | | | [...] COMPARISON: Outside lumbar MRI dated May | [facility] | | 2015. FINDINGS:5 views of lumbar [...] + | [facility] | [address] | [place] | [phone] | | [facility] | | [address] | | | - IMAGING | | | | + + + + + documented in this encounter Visit Diagnoses + + | Diagnosis | + + | Low back pain, unspecified back pain laterality, with sciatica presence unspecified - | | Primary | + + documented in this encounter"
--- OUTSIDE RECORDS SUMMARY | ~2019-12-29 | XMS | Encounter Summary ---
Demographics + + + | Address | [address] | | | [place] [address] | + + + | Home Phone [...] | Author | [facility] | | | and [place] | + + + | Organization | [facility] | | [...] Team Providers + +------+ + | Care Tire Layer Name | Role | Phone | + [...] [facility] | Eugenio Romeo | OT SECONDARY EVAL | | 2020 | Visit | [place] [address] | M, OT | | | | | [place] | | | | | | [address] | | | | | | [phone] | | | +--------+ + + + [...] encounter Miscellaneous Notes Home Health - Eugenio Romeo, OT - 11/01/2019 2:35 PM PDT1) Are [...] Level 3 Travel Health Notice: [place]: [place], [place], [facility] [place] ([facility]): [place], [place], [place], [place], [place], [place], [place]ivan , [place], [place], [place], [place], [place], [place], [place], [place], [place], [place], [place], [place], [place], [place], [place], [place], [place], [place], [place], [facility], [place], [facility] [place] and [place]: [place], [place], [place], [place], [place] Indicate positive screen if: Answer to any question 1-5 is yes or answer to question 6 indicates travel to a Level 3 anam tination. Consult with surgical territory manager prior to visit. Verified patient by [...] | | | | | [place] [address] | | | | | | [phone] | | | | | | | | +--------+---------+ + + + documented as of this encounter Visit Diagnoses Not on filedocumented in this encounter"
--- OUTSIDE RECORDS SUMMARY | ~2019-12-29 | XMS | Encounter Summary ---
Demographics + + + | Address | [address] | | | [place] [address] | + + + | Home Phone | | + + + | Preferred Language | Unknown | + + + | Marital Status | | + + + | Yazdanism Affiliation | Unknown | + + + | Race | or | + + + | Ethnic Group | Not or | + + + Author + + + | Author | [facility] | | | and [place] | + + + | Organization | [facility] | | [...] Team Providers + +------+ + | Care Clinical Lab Clerk Name | Role | Phone | [...] + | 12/01/ | Home Care | [facility] [place] | Annemarie Greene, | SN TRSFR W/OUT D/C | | 2019 | Visit | [place] [address] | RN | ([place]) | | | | [place] | | | | | | [address] | | | | | | [phone] | | | +--------+ + + + [...] this encounter Miscellaneous Notes Home Health - Annemarie Greene RN - 12/02/2019 4:11 PM PDTPhysician: MARTHA Mcmahan Transfer Date: 11/29/2019 Transfer to: [facility] Dx: Sepsis Transfer Reason: Cellulitis Situation: Home Health to reassess needs once patient returns home and per MD order. Disciplines Involved: RN, PT, OT, MSWElectronically signed by Annemarie Greene RN at 020 4:18 PM PDTdocumented in this encounter Plan of Treatment +--------+---------+ + + + | Date | Type | Specialty | Care Team | Description | +--------+---------+ + + + | 01/22/ Office | Cardiology | Zuhair Lee | | 2019 | Visit | | MD Walker [address] | | | | | | [place] | | | | | | [place] [address] | | | | | | [phone] | | | | | | | | +--------+---------+ + + + documented as of this encounter Visit Diagnoses Not on filedocumented in this encounter"
--- OUTSIDE RECORDS SUMMARY | ~2019-12-29 | XMS | Encounter Summary ---
Demographics + + + | Address | [address] | | | [place] [address] | + + + | Home Phone | | + + + | Preferred Language | Unknown | + + + | Marital Status | Unknown | + + + | Mandaeism Affiliation | Unknown | + + + | Race | Unknown | + + + | Ethnic Group | Unknown | + + + Author + + + | Author | [facility] | + + + | Organization | [facility] | + + + | Address | Unknown | + + + | Phone | Unavailable | + + + Care Team Providers + +------+ + | Care Steel Fixer Name | Role | Phone | + +------+ + PCP | Unavailable | + +------+ + Encounter Details +--------+--------+ + + + | Date | Type | Department | Care Team | Description | +--------+--------+ + + + | 12/16/ | Intake | Transfer Center | | | | 2020 | | [address] | | | | | | [place], | | | | | | [place] [address] | | | +--------+--------+ + + + Social History + +-------+ [...] as of this encounter Plan of Treatment Not on filedocumented as of this encounter Visit Diagnoses Not on filedocumented in this encounter"
--- OUTSIDE RECORDS SUMMARY | ~2019-12-29 | XMS | Encounter Summary ---
Demographics + + + | Address | [address] | | | [place] [address] | + + + | Home Phone | | + + + | Preferred Language | Unknown | + + + | Marital Status | | + + + | Congregational Affiliation | Unknown | + + + | Race | or | + + + | Ethnic Group | Not or | + + + Author + + + | Author | [facility] | | | and [place] | + + + | Organization | [facility] | | | [...] Team Providers + +------+ + | Care Machine Operator Hay Stacker Name | Role | Phone | + [...] [place] | | | | | [address] | [id number] | | | | | [phone] | | | +--------+ + + + [...] She is awaiting delivery of a FWW. Mariahen t can sit <> stand safely from [...] Level 3 Travel Health Notice: [place]: [place], [place], [place] ([facility]): [place], [place], [place], [place], [place], [place], [place] , [place], [place], [place], [place], [place], [place], [place], [place], [place], [place], [place], [place], [place], [place], [place], [place], [place], [place], [place], [facility], [place], [facility] [place] and [place]: [place], [place], [place], [place], [place] Indicate positive screen if: Answer to any question 1-5 is yes or answer to question 6 indicates travel to a Level 3 anam tination. Consult with manager building prior to visit. documented in this encounter Plan of Treatment +--------+---------+ + + + | Date | Type | Specialty | Care Team | Description | +--------+---------+ + + + | 01/22/ | Office | Cardiology | Zuhair Lee | | | 2019 | Visit | | MD Walker [address] | | | | | | [facility] | | | | | | [place] [address] | | | | | | [phone] | | | | | | | [...]
--- OUTSIDE RECORDS SUMMARY | ~2019-12-29 | XMS | Encounter Summary ---
Demographics + + + | Address | [address] | | | [place] [address] | + + + | Home Phone | | + + + | Preferred Language | Unknown | + + + | Marital Status | | + + + | Baptist Affiliation | Unknown | + + + | Race | or | + + + | Ethnic Group | Not or | + + + Author + + + | Author | [facility] | | | and [place] | + + + | Organization | [facility] | | [...] Team Providers + +------+ + | Care Marketing Consultant Name | Role | Phone | + [...] | 11/21/ | Home Care | PROV [place] | Medina Cruz, | SN REPEAT VISIT | | 2019 | Visit | [place] [address] | RN | | | | | [place] | | | | | | [address] | | | | | | [phone] | | | +--------+ + + + [...] Are you or anyone you live w [facility] experiencing any of the following symptoms? no [...] any question 1-6 is yes. Consult with order processing manager prior to visit. S- half-way visit to assess medications, blood sugars, wound [...] sugar for next several days then call r maurilio to provider and discuss insulin dosage. She [...] | | | | | [address] | | | | | | [place] [address] | | | | | | [phone] | | | | | | | [...] 20 | | scheduled/d | | | Intermediate | | | | ocumented | | [...] ed on | scheduled/d | | | Intermediate | | | | ocumented | | | | | | 020 | interventio | | | | | | | n | | + + +--------+--------+ + + | [facility] | Falls | | | 1 goal | | | Disciplines: | | 10/24/19 | Resolv | linked to | | | Intermediate, | | 20 | ed on | [...] Active | linked to | | | Intermediate | | 20 | [...] 20 | | scheduled/d | | | Intermediate | | | | ocumented | | | | | | | interventio | | | | | | | n | | + + +--------+--------+ + + | Wound Management | Wound Management | | | 1 goal | | | Disciplines: | | 10/24/19 | Active | linked to | | | Intermediate | | 20 | [...] as performed by | | | | [facility] and | | patient/caregiver. | | | [...]
--- OUTSIDE RECORDS SUMMARY | ~2019-12-29 | XMS | Encounter Summary ---
Demographics + + + | Address | [address] | | | [place] [address] | + + + | Home Phone | | + + + | Preferred Language | Unknown | + + + | Marital Status | | + + + | Anabaptist Affiliation | Unknown | + + + | Race | or | + + + | Ethnic Group | Not or | + + + Author + + + | Author | [facility] | | | and [place] | + + + | Organization | [facility] | | [...] Team Providers + +------+ + | Care Immigration Officer Name | Role | Phone | + [...] Rebecca Mancini | CASE COMMUNICATION | | 2020 | Visit | [place] [address] | | | | | | [place] | | | | | | [address] | | | | | | [phone] | | | +--------+ + + + [...] | | | | | [place] [address] | | | | | | [phone] | | | | | | | | +--------+---------+ + + + documented as of this encounter Visit Diagnoses Not on filedocumented in this encounter"
--- OUTSIDE RECORDS SUMMARY | ~2019-12-29 | XMS | Encounter Summary ---
Demographics + + + | Address | [address] | | | [place] [address] | + + + | Home Phone | | + + + | Preferred Language | Unknown | + + + | Marital Status | | + + + | Yazidism Affiliation | Unknown | + + + | Race | or | + + + | Ethnic Group | Not or | + + + Author + + + | Author | [facility] | | | and [place] | + + + | Organization | [facility] | | | [...] Team Providers + +------+ + | Care Pick Up And Delivery Driver Name | Role | Phone | [...] [place] | Eugenio Romeo | OT REPEAT VISIT | | 2019 | Visit | [place] [address] | M, [place] | | | | | [place] | | | | | | [address] | | | | | | [phone] | | | +--------+ + + + [...] Home Health - Eugenio Romeo OT - 11/15/2019 1:53 PM PDT1) Are [...] Level 3 Travel Health Notice: [place]: [place], [place], [place] ([facility]): [place], [place], [place], [place], [place], [place], [place] , [place], Greece, [place], [place], [place], [place], [place], [place], [place], [place], [place], [place], [place], [place], [place], [place], [place], [place], [place], [place], [place], [facility] [place] and [place]: [place], [place], [place], [place], [place] Indicate positive screen if: Answer to any question 1-5 is yes or answer to question 6 indicates travel to a Level [facility]. Consult with legal services manager prior to visit. S - 59 y.o. Female with sepsis being seen by HH OT for Energy conservation. B - JDE DEVELOPER was present during today's visit. Patient reports [...] visit throughout the week so that blossom elyssa does not become overwhelmed with multiple visits in a day and provide patient with socorro es to rest and focus on each piece. Patient and verbalized understanding of same. Blossom bergeron reports she is doing better getting in bed; however, continues to require assistance w ith lifting her LE. R - Continue original POC - trial leg operation shift supervisor for bed transfers. documented in this encounter Plan of Treatment +--------+---------+ + + + | Date | Type | Specialty | Care Team | Description | +--------+---------+ + + + | 01/22/ | Office | Cardiology | Zuhair Lee | | | 2019 | Visit | | MD Walker [address] | | | | | | [address] [facility] | | | | | | [place] [address] | | | | | | [phone] | | | | | | | [...]
--- OUTSIDE RECORDS SUMMARY | ~2019-12-29 | XMS | Encounter Summary ---
Demographics + + + | Address | [address] | | | [place] [address] | + + + | Home Phone | | + + + | Preferred Language | Unknown | + + + | Marital Status | | + + + | Yazidism Affiliation | Unknown | + + + | Race | or | + + + | Ethnic Group | Not or | + + + Author + + + | Author | [facility] | | | and [place] | + + + | Organization | [facility] | | | [...] Team Providers + +------+ + | Care Rock Mason Apprentice Name | Role | Phone | [...] | Specialty | Cardiology | Diagnoses | Mauricio, | [facility] | | | Services | | Elevated | MD Daniel | Cardiology | | | Required | | troponin | [address] | [address] | | | | | Acute | [address] [place] | [place], | | | | | cystitis | [place], [place] | [place] | | | | | without | [address] | [address] | | | | | hematuria | Phone: | Phone: | | | | | Sepsis, due | [phone] | [phone] | | | | | to | Fax: | Fax: | | | | | unspecified | [phone] | [phone] | | | | | organism, | [...] | Specialty | Sleep | Diagnoses | Iwanski, | [facility] | | | Services | Medicine | Elevated | MD Daniel | [facility] | | | Required | | troponin | [address] | Disorder [address] | | | | | Acute | [address] [place] | [address] | | | | | cystitis | [place], [place] | [place], | | | | | without | [address] | [place] [address] | | | | | hematuria | Phone: | Phone: | | | | | Sepsis, due | [phone] | [phone] | | | | | to | Fax: | Fax: | | | | | unspecified | [phone] | [phone] | | | | | organism, | [...] Specialty | Home Health | Diagnoses | Iwanski, | [facility] | | | Services | Services | Elevated | MD Daniel | [place] | | | Required | | troponin | [address] | [address] | | | | | Acute | [address] [place] | [place] | | | | | cystitis | [place] | [place] | | | | | without | [address] | [address] | | | | | hematuria | Phone: | Phone: | | | | | Sepsis, due | [phone] | [phone] | | | | | to | Fax: | Fax: | | | | | unspecified | [phone] | [phone] | | | | | organism, | | | | | | | unspecified | | | | | | | whether | | | | | | | acute organ | | | | | | | dysfunction | | | | | | | present | | | | | | | ([facility]) | | | | | | | [...] + + | 10/11/ | Hospital | [facility] | Daniel Martínez MD | Elevated troponin; | | 2019 - | Encounter | [facility] | [address] | Acute cystitis | | | | [address] [place] | [place] | without hematuria; | | 10/15/ | | [place] [address] | [phone] | Sepsis, due to | | 2020 | | [phone] | | unspecified | | | | | | organism, | | | | | | unspecified whether | | | | | | acute organ | | | | | | dysfunction present | | | | | | (HCC) | +--------+ + + + + Social [...] Martínez MD - 10/16/2019 11:10 AM PDT [facility] [place] HOSPITALIST DISCHARGE SUMMARY Pt. Name/Age/: Norbert Mckay [...] aka: HYDRODIURIL losartan 50 mg tablet aka: [facility]: Please refer to the H&P for full details and the most recent rounding rounding (progress) n ote. In short Mrs Barrow a 58 y/omorbidly obese ladyw/pmhx of HTN,HDL,IDDM,MESHA, hypothyroi dism chronic pain syndrome on opioids with contract, vitamin D deficiency who presented to [facility] with dizziness, near syncopal episode. Evaluation at [...] changes on EKG, I discussed this with hydraulic lift operator who recommended medical management, unfortunately she would not be a candidate for stress test or cath due to body weight. Patient was prescribed aspirin and low-dose carvedilol at [facility], she was counseled extensively on risk factor [...] appointment, check in at 1:45PM. Contact information: [id number] [place] [address] Condition: Patient being discharged with condition improved. Diet: Heart healthy diabetic diet, low calorie Greater than 30 minutes were spent on discharge and coordination of post-hospital care. Electronically signed by: Daniel Martínez MD, 10/16/2019 11:10 AM PDT [facility] Portions of this chart may have been created with [email or web address] voice recognition software. Occasi onal wrong-word or [...] flavors available): 8 ounces per day ? Pili'savi Organic Yogurt (many flavors available): 8 ounces per day ? Pauline Fresh Yogurt (many flavors available): 6 ounces [...] tablet by | 60 | 0 | 10/15/20 | | | 3.125 mg tablet | [...] tablet by | 12 | 0 | //20 | | | (CIPRO) 500 mg | [...] Martínez MD - 10/15/2019 3:12 PM PDT [facility] [place] HOSPITALIST PROGRESS NOTE Patient: Norbert Mckay : 1960: Age: 58 y.o. MedRec: [id number] Admission date: 10/12/2019 Hospital day # : 3 Physician author: Daniel Martínez MD Today: 10/15/2019 Assessment and Hospital Course Mrs Mckay is a 58 y/o morbidly obese lady w/pmhx of HTN, HDL, IDDM, MESHA, hypothyroidism c hronic pain syndrome on opioids with contract, vitamin D deficiency who [facility], near syncopal episode. Evaluation at [...] levophed with holding Bps, stable transferred to F. Labs improving, pending fur ther improvement, anticipate [...] opiates for back pain, on contract, taking Rocky Top Demanding meds upon arrival Continue home regimen [...] 50 mL IVPB 1 g Intravenous Q24H Ada eder Martínez MD 100 mL/hr at 10/14/192122 1 [...] Procedure Component Value Units Date/Time Culture, MRSA [[id number]] Collected: 10/12/19 4827 Order Status: Completed Lab Status: Final result Updated: 10/13/19 1120 Specimen: Tissue from Nares Culture Negative for [...] this chart may have been created with [email or web address] voice recognition software. Occasi onal wrong-word or [...] therapy Creatinine CrCl (mL/min) Dose-current Dose-new 10/15/19 lpta 2.90 33 600 mg q24hr 600 mg q12hr Assessment/Plan: 1. For creatinine clearance 30-50 mL/min, increase dose of gabapentin as above. 2. Pharmacy will continue to follow and adjust dose as appropriate to clinical condition an d creatinine clearance changes RENAL DOSE ADJUSTMENT PROTOCOL Electronically signed by: Kassi Nolasco, PharmD 10/15/2019 10:32 AM PDT Daniel Owens M D - 10/14/2019 9:29 AM PDT [place], [place] HOSPITALIST PROGRESS NOTE Patient: Norbert Mckay : 1960: Age: 58 y.o. MedRec: [id number] Admission date: 10/12/2019 Hospital day # : 2 Physician author: Daniel Martínez MD Today: 10/14/2019 Assessment and Hospital Course Mrs Mckay is a 58 y/o morbidly obese lady w/pmhx of HTN, HDL, IDDM, MESHA, hypothyroidism c hronic pain syndrome on opioids with contract, vitamin D deficiency who [facility], near syncopal episode. Evaluation at [...] opiates for back pain, on contract, taking Rocky Top Demanding meds upon arrival Continue home regimen [...] 50 mL IVPB 1 g Intravenous Q24H Ada eder Martínez MD 100 mL/hr at 10/13/19 2221 [...] mg 50 mg Oral BID Katy Robison PharmD 50 mg at 10/13/192131 docusate sodium [...] PRN Daniel Martínez MD 1 tablet at 10/14/19 0659 insulin glargine (LANTUS SOLOSTAR) injection (pen) 16 Units 0.1 Units/kg/day Subcutane ous Nightly Daniel Martínez MD 16 Units at 10/13/19 221 insulin lispro (humaLOG KWIKPEN) injection (pen) 0-12 Units 0-12 Units Subcutaneous 4x Daily WC and HS Daniel Martínez MD 2 Units at 10/13/19 1157 lactobacillus GG (CULTURELLE) capsule 1 capsule 1 capsule Oral BID Katy Robison Pha rmD 1 capsule at 10/13/192132 levothyroxine [...] 5 mg Intravenous Q4H PRN Ari capone, President + Publisher metoclopramide (REGLAN) tablet 5 mg 5 mg [...] mg 4 mg Intravenous Q6H PRN Daniel Matrínez MD polyethylene glycol (MIRALAX) powder 17 g 17 g Oral Daily PRN Daniel aMrtínez MD prochlorperazine tablet 10 mg 10 mg [...] Procedure Component Value Units Date/Time Culture, MRSA [[id number]] Collected: 10/12/19 1838 Order Status: Completed Lab Status: Final result Updated: 10/13/19 1125 Specimen: Tissue from Nares Culture Negative for MRSA by chromogenic agar method. 4+ Coagulase positive Staphylococcus Radiology results: US renal pending results Daniel Martínez MD Portions of this chart may have been created with [email or web address] voice recognition software. Occasi onal wrong-word or [...] Owens MD - 10/13/2019 9:31 AM PDT [facility]PITAL[facility] PROGRESS NOTE Patient: Norbert Mckay : 1960: Age: 58 y.o. MedRec: [id number] Admission date: 10/12/2019 Hospital day # : 1 Physician author: Daniel Martínez MD Today: 10/13/2019 Assessment and Hospital Course Mrs Mckay is a 58 y/o morbidly obese lady w/pmhx of HTN, HDL, IDDM, MESHA, hypothyroidism c hronic pain syndrome on opioids with contract, vitamin D deficiency who [facility], near syncopal episode. Evaluation at [...] to hypoperfusion from hypotension, K and troponin berny valerio related to renal, cards doesn't want to [...] opiates for back pain, on contract, taking Rocky Top Demanding meds upon arrival Continue home regimen [...] Q24H Malgorzata Martínez MD 100 mL/hr at 10/12/193 1 g at 10/12/19 2143 cholecalciferol (VITAMIN D-3) tablet 1,000 Units 1,000 Units Oral Daily Daniel Martínez MD 1,000 Units at 10/13/19 0837 dextrose 50% injection 12.5-25 g 12.5-25 g Intravenous PRN Daniel Martínez MD And dextrose 10% (D10W) infusion Intravenous Continuous PRN Daniel Martínez MD diclofenac (VOLTAREN) EC tablet 50 mg 50 mg Oral BID Katy Joanne Robison, PharmD 50 mg at 10/13/19 0837 docusate sodium [...] 1 capsule 1 capsule Oral BID Katy Robison Pha rmD 1 capsule at 10/13/19 0837 [...] 5 mg Intravenous Q4H PRN Ari Stacy ers, President + Publisher metoclopramide (REGLAN) tablet 5 mg 5 mg [...] Procedure Component Value Units Date/Time Culture, MRSA [[id number]] Collected: 10/12/19 1838 Order Status: Sent Lab Status: In process Updated: 10/12/191904 Specimen: Tissue from Nares Radiology results: US renal pending results Daniel Martínez MD Portions of this chart may have been created with [email or web address] voice recognition software. Occasi onal wrong-word or sound-alike substitutions may have occurred due to the inherent norris itations of voice recognition software. Please read the chart carefully and recognize, using context, where these substitutions have occurred erKaty dudley, PharmD - 10/13/2019 6:42 AM PDT RENAL [...] 10/13/19 0642 Recent Labs Lab 10/13/19 0355 10/12/19 2040 CREA 3.54* 3.30* Estimated Creatinine Clearance: 27 mL/min (A) (based on SCr of 3.54 mg/dL (H)). Metoclopramide: Date Day of therapy Creatinine CrCl (mL/min) Dose-current Dose-new 10/12/19 1 3.30 29 10 mg q4hr prn 5 mg q4hr PRN 10/13/19 2 3.54 27 5 mg q5h PRN (same) Gabapentin: Date Day of therapy Creatinine CrCl (mL/min) Dose-current Dose-new 10/12/19 1 (INTEGRATION TECHNICIAN) 3.30 29 600 mg q6hr 600 mg q24hr 10/13/19 2 3.54 27 600 mg q24h (same) Diclofenac ER: Date Day of therapy Creatinine CrCl (mL/min) Dose-current Dose-new 10/13/19 2 (INTEGRATION TECHNICIAN) 3.54 27 75 mg BID 50 mg [...] Katy Robison PharmD 10/13/2019 6:42 AM PDT aty Robison PharmD - 10/13/2019 6:35 AM PDTPharmacy Services [...] PharmSaúl 10/13/2019 6:35 AM PDT Ari Bruner, President + Publisher - 10/13/2019 12:55 AM PDTFormatting of this [...] hours ending 10/13/19 0054 Recent Labs Lab 10/12/19 2040 CREA 3.30* Estimated Creatinine Clearance: 29 mL/min [...] ADJUSTMENT PROTOCOL Electronically signed by: Ari Rangel, President + Publisher 10/13/2019 12:54 AM PDT Ari Cruz, President + Publisher - 10/13/2019 12:51 AM PDT RENAL DOSE [...] ADJUSTMENT PROTOCOL Electronically signed by: Ari Rangel, President + Publisher 10/13/2019 12:48 AM PDT doc umented in this encounter H&P Notes Daniel Martínez MD - 10/12/2019 6:52 PM PDT [place], [place] HOSPITALIST HISTORY & PHYSICAL Patient: Norbert Mckay : 1960: Age: 58 y.o. MedRec: [id number] Admission date: 10/12/2019 Hospital day # : 0 Physician author: Daniel Martínez MD Today: 10/12/2019 CHIEF COMPLAINT: Dizziness, near syncope, poor oral intake HISTORY OF PRESENT ILLNESS: Mrs Mckay is a 58 y/o morbidly obese lady w/pmhx of HTN, HDL, IDDM, MESHA, hypothyroidism c hronic pain syndrome on opioids with contract, vitamin D deficiency who [facility], near syncopal episode. Patient presented as a transfer from outside [place] mainly for elevated troponin at 0.1. When [...] TAKING Medication Sig Last Dose Dispense Doc. Hsu amitriptyline (ELAVIL) 10 mg tablet Take 20 mg by mouth nightly. Taking Edgardo ibrahim MD cholecalciferol (VITAMIN D-3) 1,000 units capsule Take 1,000 Units by mouth Daily. Taking Edgardo ProviderMD cholecalciferol (VITAMIN D-3) 5000 units TABS Take 5,000 Units by mouth Daily. Taking His torical Provider, diclofenac (VOLTAREN) 75 mg EC tablet Take 75 mg by mouth 2 times daily. Taking Hamiltonica l ProviderMD ferrous sulfate 325 mg tablet Take 325 mg by mouth daily (with breakfast). Taking Simone shelly ProviderMD gabapentin (NEURONTIN) 300 mg capsule Take 600 mg by mouth 4 times daily. Taking Henry al ProviderMD hydrochlorothiazide (HYDRODIURIL) 12.5 MG tablet Take 12.5 mg by mouth Daily. Taking Maximo Hsu MD HYDROcodone-acetaminophen (NORCO) 10-325 mg per tablet Take 1 tablet by mouth every 6 hour s as needed for Pain. Taking Edgardo Hsu MD insulin aspart protamine-insulin aspart (NOVOLOG MIX 70/30 FLEXPEN) 100 units/mL injection pen Inject 35-45 Units under the skin 2 times daily (with breakfast & dinner). Taking Maximo Hsu MD levothyroxine (SYNTHROID, LEVOTHROID) 25 mcg tablet Take 25 mcg by mouth every morning (be fore breakfast). Taking Edgardo Hsu MD losartan (COZAAR) 50 mg tablet Take 50 mg by mouth Daily. Taking Historical ProviderMD lovastatin (MEVACOR) 20 mg tablet Take 20 mg by mouth nightly. Taking Historical Provider MD metFORMIN (GLUCOPHAGE) 500 mg tablet Take 500 mg by mouth daily (with breakfast). Taking Historical ProviderMD methocarbamol (ROBAXIN) 750 mg tablet Take 750 mg by mouth 4 times daily. Taking Historic al MD Shadi Multiple Vitamin (THERAGRAN PO) Take 1 tablet by mouth Daily. Taking Historical ProviderMD UNABLE TO FIND Twice daily as needed. Med Name: Bio freeze Taking Eder Centeno ALLERGIES: Allergies Allergen Reactions Lyrica [Pregabalin] [...] fungal infection Neuro: Face symmetric, tongue midline, industrial maintenance electrician equal, no pronator drift, motor and sensory [...] service on side, despite no need for hydraulic lift operator at this time any way. She was [...] opiates for back pain, on contract,, taking Rocky [place] Demanding meds upon arrival Continue home regimen if BP allows Monitor symptoms DVT prophylaxis: SCD, heparin SQ CODE STATUS: Full code Disposition: Admit to inpatient care CMS Documentation I expect this patient will be hospitalized for greater than 2 midnights and expect the post -hospital plan to be discharged to home with . Electronically signed by: Daniel Martínez MD 10/12/2019 6:52 PM PDT [facility] Portions of this chart may have been created with [email or web address] voice recognition software. Occasi onal wrong-word or [...] this enco unter Miscellaneous Notes Plan of [place] - Emerita Zhu - 10/16/2019 3:38 PM [...] is encouraged to ambulate into hallway w [facility] nursing staff. Recommended toileting with nursing: Day [...] STG Status continued at 10/15/2019 1109 STG School[place] Level stand by assist at 10/13/2019 1440 LB Dressing Goal Most Recent Value STG Status new at 10/15/2019 1109 STG [place] Level contact guard assist at 10/15/2019 1109 Toileting Goal Most Recent Value STG Status new at 10/15/2019 1109 STG [place] Level minimum assist (75% patient effort) at 10/15/2019 1109 Toilet Transfer Goal Most Recent Value STG Status progressing at 10/15/2019 1109 STG [place] Level moderate assist (50% patient effort) at [...] OT, 10/16/2019 1:27 PM PDT lan of Care - Wagner Gonzalez RN - 10/16/2019 1:14 PM PDTDischarge home when family arrivesElectronically sig ceferino by Wagner Amaral RN at 10/16/2019 1:15 PM PDTPlan of Care - Padilla Cruz RRT - 10/16/2019 11:20 AM PDTRobin was 90% on RA with clear BS and unlabored RR 16. lan of Joan Fountain MSW - 10/15/2019 5:03 PM PDT Problem: Discharge Planning Goal: Patient's discharge needs will be identified in a timely manner Outcome: Ongoing, progressing Goal: Patient will be discharged in a safe manner Outcome: Ongoing, progressing This case liner spoke with Norbert to follow up on discharge plans. Norbert states that her p evelyn is to go home with her . She also has a sister who is a OUTREACH COORDINATOR who will be helping h er at home. She has another sister as well who is involved and will be providing meals. [place] all [place] [facility] [facility] We dicussed a SNF for rehab prior to going home and she strongly declined. She feels she wi ll have the support she needs at home with her family. We dicussed a follow up appointment with her PCP. She is seen at the [facility]. She had Denis Quempts but he transferred to the [facility] so she sees MARTHA Mcmahan. S he states that she trusted Denis and has not had much va in [place]. She doesn't feel that [place] can meet her needs however, she would like to follow up with her from here and then look at other options for care. She said she and her are thinking about re-establish ing with Denis and traveling to [place] for her apts--she and her are further discussin g this. This CM called [facility] and spoke with the patient acute care clinical nurse specialist, Vivian Askew, who scheduled Norbert for October 21 at 1:45PM check in time. Vivian would like the CM to fax the d ischarge summary that includes any follow up needs to them. . Norbert states that she would be open to have Community Health RN visits from the [facility] health nurse. This CM was transferred to Gi Carbajal at [facility] and explaine saúl over her voicemail the follow up for this patient. Asked her to call the CM tomorrow with any further questions. Norbert said her will be transporting her home in her sisters car which is easier for her to get in and out of. She uses [facility] pharmacy. PLAN: Home with , PCP follow up appt made, would benefit from community health RN wiliam sits. CM to fax dc summary upon dc. Electronically signed by: TIFFANIE Schneider 10/15/19 5:11 PM PDT lan of Care - Yu Camejo PT - 10/15/2019 11:10 AM PDTFormatting of this note might be diff erent from the original. Physical Therapy Plan of Care Treatment Note Summary: Norbert has been participating in physical therapy for treatment of impaired funct ional mobility and transfers, grossly decreased strength, and impaired activity tolerance levi shelton admit for UTI with sepsis and hypotension. [...] mobilize at level safe for home discharge, AMPAC indicating significant impairment with basic functional mobility, and medical status. Norbert will benefit from continued therapeutic intervention to address ongoing impairments a nd increase safety and independence with activities necessary for safe discharge. Refer bel ow for specific details regarding functional levels. Physical Therapy Discharge Recommendations are: Recommended discharge disposition: detention facility Post discharge physical therapy recommendation: ongoing [...] sequencing/management of FWW, fatigues quickly Level of Schoolcraft: contact guard assist, verbal cues required Assistive Device: 2 wheeled walker (FWW), bariatric Distance (feet): 5 x 2 Gait Deviations: chata decreased, double stance time increased, limb motion velocity decr eased, step length decreased, esk-eo-piils clearance decreased, weight-shifting ability decr eased Safety [...] standing tolerance (1-2 min) Bed-Chair, Level of Schoolcraft: contact guard assist, set up required, verbal cues requir ed, tactile cues required Chair-Bed, Level of Schoolcraft: contact guard assist, set up required, verbal cues requir ed, tactile cues required Hdu-Crgdq-Euc, Assistive Device: 2 wheeled walker (FWW), bariatric Sit-Stand, Level of Schoolcraft: contact guard assist, set up required, verbal cues requir ed, tactile cues required Stand-Sit, Level of Schoolcraft: contact guard assist, set up required, verbal cues requir ed, tactile cues required Skf-Ievxi-Err, Assistive Device: 2 wheeled walker (FWW), bariatric Toilet, Level of Schoolcraft: (see OT note for details of toilet [...] rails, HOB elevated Roll Left, Level of Schoolcraft: contact guard assist, set up required, verbal cues requir ed, tactile cues required Roll Right, Level of Schoolcraft: not tested Scoot/Bridge, Level of Schoolcraft: contact guard assist, set up required, verbal cues req uired, tactile cues required Sidelying to Sit, Level of Schoolcraft: minimal assist (75% patient effort), set up requir ed, verbal cues required, tactile cues required Sit to Sidelying, Level of Schoolcraft: not tested(pt up in chair at end [...] STG Status revised at 10/15/2019 1110 STG Schoolcraft Level modified independent at 10/15/2019 1110 STG Assistive Device bed rails at 10/15/2019 1110 Myvoatyse-Tvz-Zxxbigeaz Goal Most Recent Value STG Status revised at 10/15/2019 1110 STG School[place] Level minimum assist (75% patient effort) at 10/15/2019 1110 STG Assistive Device bed rails at 10/15/2019 1110 Mze-Wvrpd-Omy Goal Most Recent Value STG Status revised at 10/15/2019 1110 STG School[place] Level modified independent at 10/15/2019 1110 STG Assistive Device 2 wheeled walker (FWW), bariatric at 10/15/2019 1110 Gait Goal Most Recent Value STG Status revised at 10/15/2019 1110 STG Schoolcraft Level modified independent at 10/15/2019 1110 STG [...] Code Minutes: 30 Electronically signed by: Yu Camejo, PT, 10/15/2019 11:45 AM PDT lan of Arcelia - Julita High OT - 020 11:09 AM PDT Occupational [...] Therapy Discharge Recommendations are: Recommended discharge disposition: detention facility Post discharge occupational therapy recommendation: ongoing [...] eased strength and endurance Toileting, Level of Schoolcraft: 2 person assist required, maximal assist (25% [...] Assist w/ FWW mgmt. Toilet, Level of Schoolcraft: 1 person + 1 person to manage [...] STG Status continued at 10/15/2019 1109 STG School[place] Level stand by assist at 10/13/2019 1440 LB Dressing Goal Most Recent Value STG Status new at 10/15/2019 1109 STG School[place] Level contact guard assist at 10/15/2019 1109 Toileting Goal Most Recent Value STG Status new at 10/15/2019 1109 STG School[place] Level minimum assist (75% patient effort) at 10/15/2019 1109 Toilet Transfer Goal Most Recent Value STG Status progressing at 10/15/2019 1109 STG School[place] Level moderate assist (50% patient effort) at [...] Code Minutes: 22 Electronically signed by: Julita High OT, 10/15/2019 6:25 PM PDT lan of Cinthia Vargas RN - 10/15/2019 4:30 AM PDTPt transferred to room 328 via bed. A&Ox4. Using call light appropriately. Reports left knee and lower back pain, requests Rocky Top as needed. LSC dim to bases. 1-2L O2 via N/C through noc. Orozco in place-clear yellow urine. LBM 10/13. NICOLASA midline CDI. SL x 2 to bilat forearms. Rash continues to breasts and pannus-pt declined tx at [facility]. Requires 3 assist with skylift for transfers. lan of Ro Banks RN - 10/14/2019 7:20 PM PDTA&Ox4. VSS on 1L O2. Rocky Top effective for chronic L knee/low back pain. [...] bedside supportive. lan of Care - Hollis Abdul RRT - 10/14/2019 7:10 PM PDTO2 weaned off. SpO2: 97 % on 1liters/minute nasal cannula(R educed to Room air.) lan of Care - Stru Clemencia mcclellan OT - 10/14/2019 11:52 AM [...] 2 days and as needed. lan of Care - [facility], Julita Flannery OT - 10/14/2019 11:14 AM PDT Occupational [...] for tomorrow if medically stable- transfer to [facility]. RN cleared patient for participation in therapy. [...] Therapy Discharge Recommendations are: Recommended discharge disposition: detention facility Post discharge occupational therapy recommendation: ongoing low intensity therapy, will be nefit from structured setting Equipment Recommendations: wheelchair, mechanical lift Planned Interventions:ADL retraining, balance training, bed mobility training, functional e ndurance training, ROM (Range of Motion), strengthening, transfer training, discharge plansaba dumont, patient/family education(edema/wound mgmt prn) Recommended Frequency: 4 times/wk, 5 times/wk Patient Status/Goals: Reflects last filed data and may be from multiple contributors. ADLs Set-up to manage denture plates, use mouthwash. Pt removed them to container after removin g extensive adhesive, then wiped gums for same. Will progress to sitting upright and managi ng own set-up as able. Grooming, Level of Schoolcraft: set up required, stand by assist Grooming [...] STG Status continued at 10/14/2019 1114 STG School[place] Level stand by assist at 10/13/2019 1440 Toilet Transfer Goal Most Recent Value STG Status continued at 10/14/2019 1114 STG [place] Level moderate assist (50% patient effort) at [...] Start Time: 1023 OT Co-treatment Stop Time: 1113 OT Co-treatment Total Time: 51 OT Total Treatment Time: 51 Timed [place] Code Minutes: 36 Electronically signed by: Julita High, OT, 10/14/2019 3:39 PM PDT lan of [...] and functional limitations include decreased functional activity ejfee krystle, decreased bed mobility, decreased functional transfers, decreased functional gait dis tance, not yet able to mobilize at level safe for home discharge, AMPAC indicating significa nt impairment with basic functional [...] spouse Provides Primary Care For: pet(s)(2 dogs- Vietnamese Coley, mixed breed Pitbull, Lab. ) Role Relationships Comment: Spouse present and supportive, works [employer]. 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 Living Environment/Accessibility: Lives With: spouse Living Arrangements: house Home Accessibility: ramps present at home, grab bars present (bathtub) Number of Stairs to Enter Home: 0(w/c ramp) Number of Stairs Within Home: 0 Living Environment Comment: Tub w/ tub transfer bench Patient/Family s Goals: return home Rehabilitation potential: fair, will monitor progress closely Physical Therapy Discharge Recommendations are: Recommended discharge disposition: detention facility Post discharge physical therapy recommendation: ongoing [...] (see comments)(overhead lift) Roll Left, Level of Schoolcraft: minimal assist (75% patient effort), 2 person assist requ ired, set up required, verbal cues required, tactile cues required Roll Right, Level of Schoolcraft: moderate assist (50% patient effort), 2 person assist re quired, set up required, verbal cues required, tactile cues required Scoot/Bridge, Level of Schoolcraft: maximal assist (25% patient effort), 2 person [...] R LE Strength: poor, grossly 3-/5 throughout [facility] BASIC MOBILITY Turning from your back to [...] Mobility Six Click AM-PAC: 6 Completed the [facility] Activity Measure for Post Acute Care [...] 22 - 20.91 CI 23 - 11.2 CH 24 - 0.00 Predicted Discharge During Acute Hospitalization (Raw Score) Home = 20.1 With assist = 17.9 SNF = 14 IRF = 13.6 LTAC = 11.5 PT Goal Review Date Most Recent Value STG Review Date 10/21/19 at 10/14/2019 1051 Roll Left/Right Goal Most Recent Value STG Status new at 10/14/2019 1051 STG School[place] Level stand by assist at 10/14/2019 1051 STG Assistive Device bed rails at 10/14/2019 1051 Eyiaimykp-Npe-Gzleaoyta Goal Most Recent Value STG Status new at 10/14/2019 1051 STG School[place] Level minimum assist (75% patient effort) at 10/14/2019 1051 STG Assistive Device bed rails, HOB elevated at 10/14/2019 1051 Gqx-Aqvqb-Mxh Goal Most Recent Value STG Status new at 10/14/2019 1051 STG School[place] Level minimum assist (75% patient effort) at 10/14/2019 1051 STG Assistive Device 2 wheeled walker (FWW), bariatric at 10/14/2019 1051 Gait Goal Most Recent Value STG Status new at 10/14/2019 1051 STG School[place] Level minimum assist (75% patient effort) at [...] Code Minutes: 0 Electronically signed by: Yu Camejo PT, 10/14/2019 11:38 AM PDT lan of Shira Edwards RN - 10/14/2019 4:58 AM PDTPt c/o chronic back pain, lidocaine patch placed and 1 norco 10-325 given. Most comfortable on L side. [id number], titrating levo, currently at 4 mcg/min. Pt [...] when medically stable. Electronically signed by: Yu Camejo, PT, 10/13/2019 2:46 PM PDT lan of [...] spouse Provides Primary Care For: pet(s)(2 dogs- Vietnamese Coley, mixed breed Pitbull, Lab. ) Role Relationships Comment: Spouse present and supportive, works [employer]. 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 Living Environment/Accessibility: Lives With: spouse Living Arrangements: [...] STG Status new at 10/13/2019 1440 STG School[place] Level stand by assist at 10/13/2019 1440 Toilet Transfer Goal Most Recent Value STG Status new at 10/13/2019 1440 STG School[place] Level moderate assist (50% patient effort) at [...] OT, 10/13/2019 4:18 PM PDT lan of Gi Lazcano RN - 10/13/2019 10:48 AM PDT Problem: Discharge Planning Goal: Patient's discharge needs will be identified in a timely manner Outcome: Ongoing, progressing Goal: Patient will be discharged in a safe manner Outcome: Ongoing, progressing Met with Norbert and her spouse Harshil in the room. They live in [place], [place] with their 2 dogs in a [...] RN 10/13/2019 10:56 AM PDT lan of Charlotte Breen RN - 10/12/2019 7:[address]in arrived [facility]. O2 now at 4L [place]. Le vophed [...] | | | | | [address] [place] | | | | | | [place] [address] | | | | | | [phone] | | | | | | | [...] e | Acute cystitis | | | [place]) | | | without hematuria | | | | | | Sepsis, due to | | | | | | unspecified | | | | | | organism, | | | | | | unspecified whether | | | | | | acute organ | | | | | | dysfunction present | | | | | | ([facility]) | | + + +--------+ + + | AMB Referral to WS | Outpatient | Routin | Elevated troponin [...] present | | | | | | ([facility]) | | + + +--------+ [...] present | | | | | | ([facility]) | | + + +--------+ [...] [address] | [place] | [phone] | | [facility] | | [address] | | | - LABORATORY | | [...] + | [facility] | [address] | [place] | [phone] | | [facility] | | [address] | | | - LABORATORY | | [...] [address] | [place] | [phone] | | [facility] | | [address] | | | - LABORATORY | | [...] [address] | [place] | [phone] | | [facility] | | [address] | | | - LABORATORY | | [...] 2.47 (H) | 0.55 - 1.02 | [facility] | | | | | mg/dL | [facility] | | | | | | [facility]ICAL | | | | | | CENTER - | | | | | | LABORATORY | | + + + + + + | eGFR, | 20 (L)Comment: | >=60 | [facility] | | | non- | GLOMERULAR FILTRATION | mL/min/1.73m2 | [facility] | | | [place] | RATE,ESTIMATED | | MEDICAL | | | | mL/min/1.68e4Okps than | | CENTER - | | [...] | | | | mg/dL | [facility] | | | | | | MEDICAL [...] [address] | [place] | [phone] | | [facility] | | [address] | | | - LABORATORY | | [...] ST. | [address] | [place], [place] | [phone] | | [facility] | | [address] | | | - LABORATORY | | [...] [address] | [place] | [phone] | | [facility] | | [address] | | | - LABORATORY | | [...] [address] | [place] | [phone] | | [facility] | | [address] | | | - LABORATORY | | | | + + + + + Phosphorus (10/15/2019 4:55 AM PDT) + +-------+ + + + | Component | Value | Ref Range | Performed | Pathologist | | | | | At | Signature | + +-------+ + + + | Phosphorus | 5.0 | 2.4 - 5.1 mg/dL | [facility] | | | | | | ST. [...] [address] | [place] | [phone] | | [facility] | | [address] | | | - LABORATORY | | [...] [address] | [place] | [phone] | | [facility] | | [address] | | | - LABORATORY | | [...] | nRBC | | K/uL | [facility] | [...] + | [facility] | [address] | [place] | [phone] | | [facility] | | [address] | | | - LABORATORY | | [...] | mL/min/1.73m2 | [facility] | | | [place] | RATE,ESTIMATED | | MEDICAL | | | | mL/min/1.50x9Xrwe than | | CENTER - | | [...] | ine Ratio | | | [facility] | | [...] [address] | [place] | [phone] | | [facility] | | [address] | | | - LABORATORY | | [...] + | [facility] | [address] | [place] | [phone] | | [facility] | | [address] | | | - LABORATORY | | [...] | | | | | | [facility] | | | | | | MEDICAL [...] [facility] | | | | | [facility] | | | | | | [facility]ICAL | | | | | | CENTER - | | | | | | LABORATORY | | + + + + + + | BUN | 47 (H) | 9 - 23 mg/dL | [facility] | | | | | [facility] | | | | | | [facility] | | | | | | C[facility] - | | | | | | LABORATORY | | + + + + + + | Creatinine | 3.05 (H) | 0.55 - 1.02 | [facility] | | | | | mg/dL | [facility] | | [facility] | MED[facility] | | | | | | CENTER - | | | | | | LABORATORY | | + + + + + + | eGFR, | 16 (L)Comment: | >=60 | [facility] | | | non- | GLOMERULAR FILTRATION | mL/min/1.73m2 | [facility] | | | [place] | RATE,ESTIMATED | | MEDICAL | | | | mL/min/1.99i1Kvba than | | CENTER - | | [...] ST. | [address] | [place], [place] | [phone] | | [facility] | | [address] | | | - LABORATORY | | [...] [address] | [place] | [phone] | | [facility] | | [address] | | | - LABORATORY | | [...] [address] | [place] | [phone] | | [facility] | | [address] | | | - LABORATORY | | [...] | | | | | | [place] | | | | | + +--------+ [...] [address] | [place] | [phone] | | [facility] | | [address] | | | - LABORATORY | | | | + + + + + Phosphorus (10/14/2019 4:39 AM PDT) + +---------+ + + + | Component | Value | Ref Range | Performed | Pathologist | | | | | At | Signature | + +---------+ + + + | Phosphorus | 5.5 (H) | 2.4 - 5.1 mg/dL | [facility] | | | | [...] + | [facility] | [address] | [place] | [phone] | | [facility] | | [address] | | | - LABORATORY | | | | + + + + + Magnesium (10/14/2019 4:39 AM PDT) + +-------+ + + + | Component | Value | Ref Range | Performed | Pathologist | | | | | At | Signature | + +-------+ + + + | Magnesium | 1.6 | 1.6 - 2.6 mg/dL | [facility] [...] [address] | [place] | [phone] | | [facility] | | [address] | | | - LABORATORY | | [...] | | Direct | | mg/dl | [facility] | | | | | [...] [address] | [place] | [phone] | | [facility] | | [address] | | | - LABORATORY | | [...] | nRBC | | K/uL | [facility] | [...] + | [facility] | [address] | [place] | [phone] | | [facility] | | [address] | | | - LABORATORY | | [...] mL/min/1.73m2 | [facility] | | | [place] | RATE,ESTIMATED | | MEDICAL | | | | mL/min/1.18i4Wzmj than | | CENTER - | | [...] | [address] | [place] | [phone] | | [facility] | | [address] | | | - LABORATORY | | [...] | | | | | | [employer] | | | | | [...] [address] | [place] | [phone] | | [facility] | | [address] | | | - LABORATORY | | [...] + | [facility] | [address] | [place] | [phone] | | [facility] | | [address] | | | - LABORATORY | | [...] | mL/min/1.73m2 | [facility] | | | [place] | RATE,ESTIMATED | | MEDICAL | | | | mL/min/1.17i4Wdzt than | | CENTER - | | [...] | | ine Ratio | | | [facility] | | | [...] [address] | [place] | [phone] | | [facility] | | [address] | | | - LABORATORY | | [...] | | | | | | [employer] | | | | | [...] [address] | [place] | [phone] | | [facility] | | [address] | | | - LABORATORY | | [...] + | [facility] | [address] | [place] | [phone] | | [facility] | | [address] | | | - LABORATORY | | [...] | | Consistent with previous | | [facility] | | | | results. | [...] | | | | | | [employer] | | | | | [...] ST. | [address] | [place] | [phone] | | [facility] | | [address] | | | - LABORATORY | | [...] [address] | [place] | [phone] | | [facility] | | [address] | | | - LABORATORY | | [...] [address] | [place] | [phone] | | [facility] | | [address] | | | - LABORATORY | | [...] 3.55 (H) | 0.55 - 1.02 | [facility] | | | | | mg/dL | [facility] | | | | | | MEDICAL | | | | | | CENTER - | | | | | | LABORATORY | | + + + + + + | eGFR, | 13 (L)Comment: | >=60 | [facility] | | | non- | GLOMERULAR FILTRATION | mL/min/1.73m2 | [facility] | | | [place] | RATE,ESTIMATED | | MEDICAL | | | | mL/min/1.16c7Piaq than | | CENTER - | | [...] + | [facility] | [address] | [place] | [phone] | | [facility] | | [address] | | | - LABORATORY | | [...] | | | | | mOsm/kg | [facility] | | | | [...] ST. | [address] | [place] | [phone] | | [facility] | | [address] | | | - LABORATORY | | [...] [address] | [place] | [phone] | | [facility] | | [address] | | | - LABORATORY | | [...] | | | | NIKKO PICKETT MD ([id number]) | | | | | | on [...] + | [facility] | [address] | [place] | [phone] | | [facility] | | [address] | | | - LABORATORY | | [...] | | | Lavender | | | [facility] | | | Top Tube | [...] [address] | [place] | [phone] | | [facility] | | [address] | | | - LABORATORY | | [...] | | Critical Result called | | [facility] | | | [...] | | | | | | [employer] | | | | | [...] + | [facility] | [address] | [place] | [phone] | | [facility] | | [address] | | | - LABORATORY | | [...] | | | | mmol/L | [facility] | | | | | | [...] + | [facility] | [address] | [place] | [phone] | | [facility] | | [address] | | | - LABORATORY | | [...] | | Time | | seconds | [facility] | | | | [...] [address] | [place] | [phone] | | [facility] | | [address] | | | - LABORATORY | | | | + + + + + Magnesium (10/13/2019 3:55 AM PDT) + +-------+ + + + | Component | Value | Ref Range | Performed | Pathologist | | | | | At | Signature | + +-------+ + + + | Magnesium | 1.6 | 1.6 - 2.6 mg/dL | [facility] [...] [address] | [place] | [phone] | | [facility] | | [address] | | | - LABORATORY | | [...] | | | Cells | | | [facility] | | | | | | MEDICAL | | | | | | CENTER - | | | | | | LABORATORY | | + + + + + + | Red Blood | 3.66 (L) | 3.70 - 5.20 | [facility] | | | Cells | | M/uL | [facility] | | | | | | MEDICAL [...] | nRBC | | K/uL | [facility] | [...] | + + + + + | [facility] | [address] | [place] | [phone] | | [facility] | | [address] | | | - LABORATORY | | [...] non- | GLOMERULAR FILTRATION | mL/min/1.73m2 | [facility] | | | [place] | RATE,ESTIMATED | | MEDICAL | | | | mL/min/1.11m2Xmpd than | | CENTER - | | [...] | | | | | mg/dL | [facility] | | | | | | MEDICAL | | | | | | CENTER - | | | | | | LABORATORY | | + + + + + + | BUN/Creatin | 12.1 | | [facility] | | | ine [...] [address] | [place] | [phone] | | [facility] | | [address] | | | - LABORATORY | | [...] | | | | | | [employer] | | | | | [...] + | [facility] | [address] | [place] | [phone] | | [facility] | | [address] | | | - LABORATORY | | [...] | | | | mmol/L | [facility] | | | | | | [...] + + + + + | [facility]. | [address] | [place] | [phone] | | [facility] | | [address] | | | - LABORATORY | | [...] [address] | [place] | [phone] | | [facility] | | [address] | | | - LABORATORY | | [...] [address] | [place] | [phone] | | [facility] | | [address] | | | - LABORATORY | | | | + + + + + Hepatic Function Panel (10/12/2019 8:40 PM PDT) + +---------+ + + + | Component | Value | Ref Range | Performed | Pathologist | | | | | At | Signature | + +---------+ + + + | Bilirubin | 0.2 (L) | 0.3 - 1.2 mg/dL | [facility] | | | Total | | | [facility] | | | | | | MEDICAL | | | | | | CENTER - | | | | | | LABORATORY | | + +---------+ + + + | Total | 6.5 | 5.7 - 8.2 g/dL | [facility] | | | Protein | | | [facility] | | [...] ST. | [address] | [place], [place] | [phone] | | [facility] | | [address] | | | - LABORATORY | | [...] non- | GLOMERULAR FILTRATION | mL/min/1.73m2 | [facility] | | | [place] | RATE,ESTIMATED | | MEDICAL | | | | mL/min/1.02f6Pdkt than | | CENTER - | | [...] | | | | | mg/dL | [facility] | | | | | | MEDICAL [...] [address] | [place] | [phone] | | [facility] | | [address] | | | - LABORATORY | | [...] | | Eosinophils | | | [facility] | | [...] [address] | [place] | [phone] | | [facility] | | [address] | | | - LABORATORY | | [...] | chromogenic agar method. | | [facility] | | | | | | MEDICAL | | | | | | CENTER - | | | | | | LABORATORY | | + + + + + + | Culture | 4+ Coagulase positive | | [facility] | | | | Staphylococcus | | [facility] | | | [...] | + + + + + | [facility] | [address] | [place], [place] | [phone] | | [facility] | | [address] | | | - LABORATORY | | [...] 20 10:03 | | | | | 10/13/19 at 1015, For 1 dose | | [...] Abdomen- | | SOLOSTAR) injection (pen) | | 20 9:46 | | | RUQ | | [...] | | | | | | | 4962-7831 Use NIGHT DOSE for | | | | | | | doses scheduled: HS, | | | | | | | Nighttime 6637-3655 If the BG is | | | [...] BP, | | | Starting 10/12/19 at 2023 | | + +---+ | | | [...]
--- OUTSIDE RECORDS SUMMARY | ~2019-12-29 | XMS | Encounter Summary ---
Demographics + + + | Address | [address] | | | [place] [address] | + + + | Home Phone [...] Team Providers + +------+ + | Care Switchboard Operator Helper Name | Role | Phone | + [...] | 11/27/ | Home Care | [facility] [place] | Yulissa Gann, | TELEPHONE ENCOUNTER | | 2019 | Visit | [address] | [address] | | | | | [address] [place] | | | | | | [address] | | | | | | [phone] | | | +--------+ + + + [...] | | | | | [place] [address] | | | | | | [phone] | | | | | | | | +--------+---------+ + + + documented as of this encounter Visit Diagnoses [facility]"
[~2019-12-29 09:29] MED LIST changes: +ACETAMINOPHEN500 MG PO; +ANTI-FUNGAL POW71 GM TOP; +BIOFREEZE118 ML TOP; +CARVEDILOL12.5 MG PO; +CARVEDILOL3.125 MG PO; +CARVEDILOL6.25 MG PO; +DULCOLAX10 MG PR; +FERROUS FUMARA324 MG PO; +FLEET ENEMA133 ML PR; +HUMALOG100 UNITS/ SUB-Q; +LEVETIRACETAM750 MG PO; +LIDODERM1 EACH TOP; +LO-DOSE ASPIRIN81 M1 PO; +MAALOX ADVANCE355 ML PO; +MILK OF MA400 MG/5 M PO; +NORVASC10 MG PO; +ONDANSETRON ODT8 MG SL; +POLYETHYLENE GL17 GM PO
--- OUTSIDE RECORDS SUMMARY | 2019-12-29 09:32 | XMS ---
PreManage Notification: RONY CORREIA Security Social Media Community Manager Events No recent Security Events currently on file CRITERIA MET - [facility] - [facility] [place] - 2 Visits in 30 Days CARE PROVIDERS Name Unknown [facility] Current PHONE: [phone] Name Unknown [facility] 10/14/2019-Current PHONE: [phone] Jasbir has no Care Guidelines for this patient. Care History Medical/Surgical 10/14/2019 [facility] - PATIENT IS A [facility] ELIGIBLE, \T\middot;\T\nbsp; PLEASE REFER PATIENT TO [facility] FOR NON EMERGENT MEDICAL NEEDS. \T\middot;\T\nbsp; [facility] CAN SEE PATIENTS SAME DAY FOR APTS IF PATIENT CALLS FIRST THING IN THE MORNING. E.D. VISIT COUNT (12 MO.) [address] [facility] TOTAL 4 NOTE: Visits indicate total known visits. ED/UCC VISIT TRACKING (12 MO.) 12/29/2019 09:29 [facility] TYPE: Emergency COMPLAINT: - LOW OXYGEN 12/17/2019 08:16 [facility] TYPE: Emergency COMPLAINT: - SEIZURE 11/29/2019 16:38 [facility] TYPE: Emergency COMPLAINT: - FALL 10/12/2019 12:44 [facility] TYPE: Emergency COMPLAINT: - CHEST PAIN DIAGNOSES: - Abnormal coagulation profile - Type 2 diabetes mellitus with diabetic neuropathy, unspecifie - termite control representative (current) use of insulin - Other long term care administrator (current) drug therapy - Hypotension, unspecified - Dizziness and giddiness INPATIENT VISIT TRACKING (12 MO.) 12/17/2019 08:17 [facility] TYPE: Observation COMPLAINT: - SEIZURES DIAGNOSES: - Chronic pain syndrome - Essential (primary) hypertension - Contact with and (suspected) exposure to other viral communic - Unspecified convulsions - Body mass index (BMI) 70 or greater, adult - snf (current) use of insulin - Pulmonary hypertension, unspecified - Hypothyroidism, unspecified - Allergy status to other drugs, medicaments and biological sub - Opioid dependence, uncomplicated - snf (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 - Hypokalemia - Other long term care administrator (current) drug therapy - Obstructive sleep apnea (adult) (pediatric) - Epilepsy, unspecified, not intractable, without status epilep - Obesity, unspecified - Type 2 diabetes mellitus with diabetic polyneuropathy - Hyperlipidemia, unspecified 11/29/2019 19:07 [facility] TYPE: Medical Surgical COMPLAINT: - LEFT LEG CELLULITIS DIAGNOSES: - Abnormal levels of other serum enzymes - snf (current) use of opiate analgesic - Chronic pain syndrome - snf (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 - Pulmonary hypertension, unspecified - Hypomagnesemia - Repeated falls - Hyperkalemia - Cellulitis of left lower limb - Contact with and (suspected) exposure to other viral communic - Hypothyroidism, unspecified - snf (current) use of oral hypoglycemic drugs - Other long-term (current) drug therapy - Abnormal levels of other serum enzymes - Acute kidney failure, unspecified - Other specified abnormal findings of blood chemistry - snf (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 - Metabolic encephalopathy - Hyperlipidemia, unspecified - Allergy status to other drugs, medicaments and biological sub - Hypothyroidism, unspecified - Metabolic encephalopathy - Pressure ulcer of right heel, unspecified stage - Hypomagnesemia - Hyperkalemia - Allergy status to other drugs, medicaments and biological sub - Acute kidney failure, unspecified - Contact with and (suspected) exposure to other viral communic - Morbid (severe) obesity with alveolar hypoventilation - Body mass index (BMI) 60.0-69.9, adult - Severe sepsis without septic shock - Type 2 diabetes mellitus with diabetic neuropathy, unspecifie - Hyperlipidemia, unspecified - Severe sepsis without septic shock - termite control representative (current) use of opiate analgesic - Essential (primary) hypertension - Body mass index (BMI) 60.0-69.9, adult - Other streptococcal sepsis - Pulmonary hypertension, unspecified - Repeated falls - Pressure ulcer of right heel, unspecified stage - Other streptococcal sepsis - Other specified abnormal findings of blood chemistry - Other long-term (current) drug therapy - Essential (primary) hypertension - Chronic pain syndrome - Tinea corporis - Morbid (severe) obesity with alveolar hypoventilation - Type 2 diabetes mellitus with diabetic neuropathy, unspecifie - termite control representative (current) use of oral hypoglycemic drugs - Tinea corporis [facility] DIAGNOSES: - Sepsis, unspecified organism - Sepsis, elevated troponin - Other specified abnormal findings of blood chemistry - Acute cystitis without hematuria [email or web address]
[2019-12-29] MEDS ORDERED: NEURONTIN300 MG PO (12:50)
[2019-12-29] MEDS ORDERED: OXYCODONE HCL5 MG PO (12:54)
--- NOTE | 2019-12-29 13:22 | EKG ---
[facility] [address] [place], [place] [address] Signed Normal sinus rhythm Right bundle branch block Abnormal ECG When compared with ECG of 29-NOV-2019 17:12, No significant change was found Confirmed by THI MURRAY MD ([id number] on 12/29/2019 1:22:20 PM Electronically Signed By: THI MURRAY MD 12/29/19 1322 PATIENT NAME: CADEROBERTRONY Electrocardiogram DATE OF : 64 PHYSICIAN: THI MURRAY MD REPORT #: [id number] REPORT IS CONFIDENTIAL AND NOT TO BE RELEASED WITHOUT AUTHORIZATION
== END 2019-12-29 14:35 | disposition short-term general hospital (02) ==
LOC: ED 09:29
DX: I50.9 Heart failure, unspecified (principal); R06.89 Other abnormalities of breathing; R09.02 Hypoxemia; E66.01 Morbid (severe) obesity due to excess calories; E11.40 Type 2 diabetes mellitus with diabetic neuropathy, unspecified; G40.909 Epilepsy, unspecified, not intractable, without status epilepticus; Z88.8 Allergy status to other drugs, medicaments and biological substances; Z79.899 Other long term (current) drug therapy
CPT/HCPCS: 31500; 36600; 51702; 71045; 80053; 81001; 82542; 82803; 83735; 83880; 84484; 85025; 93005; 93010; 93971; 94660; 99285-25; J0330

== ENCOUNTER 2020-05-01 16:57 | Emergency (ER) | payer MEDICARE, OTHER ==
[~2020-05-01] VITALS: Ht 162.6 cm; Wt 142.9 kg
[~2020-05-01 16:57] MED LIST changes: +OXYCODONE HCL5 MG PO
--- OUTSIDE RECORDS SUMMARY | 2020-05-01 17:00 | XMS ---
PreManage Notification: RONY CORREIA Security Edge Kitter Events No recent Security Events currently on file CRITERIA MET - History of Sepsis Dx - PDMP CARE PROVIDERS Name Unknown [facility] Current PHONE: [phone] Name Unknown [facility] 10/14/2019-Current PHONE: [phone] Jasbir has no Care Guidelines for this patient. Care History Medical/Surgical 10/14/2019 [facility] - PATIENT IS A [facility] ELIGIBLE, \T\middot;\T\nbsp; PLEASE REFER PATIENT TO [facility] FOR NON EMERGENT MEDICAL NEEDS. \T\middot;\T\nbsp; [facility] CAN SEE PATIENTS SAME DAY FOR APTS IF PATIENT CALLS FIRST THING IN THE MORNING. E.D. VISIT COUNT (12 MO.) 1 [place] [address] ARMANDO Ronquillo TOTAL 6 NOTE: Visits indicate total known visits. ED/UCC VISIT TRACKING (12 MO.) 05/01/2020 16:57 [facility] [place] TYPE: Emergency COMPLAINT: - MULTIPLE COMPLAINTS 12/29/2019 15:15 [facility] TYPE: Emergency DIAGNOSES: - Sepsis, unspecified organism - Acute respiratory failure with hypercapnia - Acute cystitis without hematuria - Respiratory Distress - CHF, hypoxia, elevated troponin - Transient alteration of awareness 12/29/2019 09:29 [facility] [place] TYPE: Emergency COMPLAINT: - LOW OXYGEN DIAGNOSES: - MCC (current) use of oral hypoglycemic drugs - Localized swelling, mass and lump, left upper limb - Hypoxemia - MCC (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 - Type 2 diabetes mellitus with diabetic neuropathy, unspecified - MCC (current) use of insulin - Allergy status to other drugs, medicaments and biological substances - Other abnormalities of breathing - Other intermediate (current) drug therapy - Hypoxemia - Epilepsy, unspecified, not intractable, without status epilepticus - Morbid (severe) obesity due to excess calories - Heart failure, unspecified 12/17/2019 08:16 [facility] [place] TYPE: Emergency COMPLAINT: - SEIZURE 11/29/2019 16:38 [facility] [place] TYPE: Emergency COMPLAINT: - FALL 10/12/2019 12:44 [facility] [place] TYPE: Emergency COMPLAINT: - CHEST PAIN DIAGNOSES: - Abnormal coagulation profile - Type 2 diabetes mellitus with diabetic neuropathy, unspecified - 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 - Other vermin exterminator (current) drug therapy - Hypotension, unspecified - Dizziness and giddiness INPATIENT VISIT TRACKING (12 MO.) 12/29/2019 15:15 [facility] TYPE: Internal Medicine DIAGNOSES: - Sepsis, unspecified organism - Transient alteration of awareness - Acute cystitis without hematuria - Acute respiratory failure with hypercapnia 12/17/2019 08:17 [facility] [place] TYPE: Observation COMPLAINT: - SEIZURES DIAGNOSES: - Chronic pain syndrome - Essential (primary) hypertension - Contact with and (suspected) exposure to other viral communicable diseases - Unspecified convulsions - Body mass index [BMI] 70 or greater, adult - 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 - Pulmonary hypertension, unspecified - Hypothyroidism, unspecified - Allergy status to other drugs, medicaments and biological substances - Opioid dependence, uncomplicated - MCC (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 - Hypokalemia - Other vermin exterminator (current) drug therapy - Obstructive sleep apnea (adult) (pediatric) - Epilepsy, unspecified, not intractable, without status epilepticus - Obesity, unspecified - Type 2 diabetes mellitus with diabetic polyneuropathy - Hyperlipidemia, unspecified 11/29/2019 19:07 [facility] TYPE: Medical Surgical COMPLAINT: - LEFT LEG CELLULITIS DIAGNOSES: - Abnormal levels of other serum enzymes - buttermilk drier operator (current) use of opiate analgesic - Chronic pain syndrome - buttermilk drier operator (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 - Pulmonary hypertension, unspecified - Hypomagnesemia - Repeated falls - Hyperkalemia - Cellulitis of left lower limb - Contact with and (suspected) exposure to other viral communicable diseases - Hypothyroidism, unspecified - MCC (current) use of oral hypoglycemic drugs - Other vermin exterminator (current) drug therapy - Abnormal levels of other serum enzymes - Acute kidney failure, unspecified - Other specified abnormal findings of blood chemistry - MCC (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 - Metabolic encephalopathy - Hyperlipidemia, unspecified - Allergy status to other drugs, medicaments and biological substances - Hypothyroidism, unspecified - Metabolic encephalopathy - Pressure ulcer of right heel, unspecified stage - Hypomagnesemia - Hyperkalemia - Allergy status to other drugs, medicaments and biological substances - Acute kidney failure, unspecified - Contact with and (suspected) exposure to other viral communicable diseases - Morbid (severe) obesity with alveolar hypoventilation - Body mass index [BMI] 60.0-69.9, adult - Severe sepsis without septic shock - Type 2 diabetes mellitus with diabetic neuropathy, unspecified - Hyperlipidemia, unspecified - Severe sepsis without septic shock - MCC (current) use of opiate analgesic - Essential (primary) hypertension - Body mass index [BMI] 60.0-69.9, adult - Other streptococcal sepsis - Pulmonary hypertension, unspecified - Repeated falls - Pressure ulcer of right heel, unspecified stage - Other streptococcal sepsis - Other specified abnormal findings of blood chemistry - Other vermin exterminator (current) drug therapy - Essential (primary) hypertension - Chronic pain syndrome - Tinea corporis - Morbid (severe) obesity with alveolar hypoventilation - Type 2 diabetes mellitus with diabetic neuropathy, unspecified - buttermilk drier operator (current) use of oral hypoglycemic drugs - Tinea corporis [facility] DIAGNOSES: - Sepsis, unspecified organism - Sepsis, elevated troponin - Other specified abnormal findings of blood chemistry - Acute cystitis without hematuria [email or web address]
== END 2020-05-01 19:07 | disposition home or self-care (01) ==
LOC: ED 16:57
PROC: 0T9B70Z Drainage of Bladder with Drainage Device, Via Natural or Artificial Opening (ICD-10-PCS; principal; 2020-05-01)
DX: T83.098A Other mechanical complication of other urinary catheter, initial encounter (principal); E11.40 Type 2 diabetes mellitus with diabetic neuropathy, unspecified; Z88.8 Allergy status to other drugs, medicaments and biological substances; Z79.4 Long term (current) use of insulin; Z79.82 Long term (current) use of aspirin; Z79.899 Other long term (current) drug therapy
CPT/HCPCS: 51702; 99283-25

== ENCOUNTER 2020-09-07 16:44 | Inpatient (IN) | payer MEDICARE, OTHER ==
[~2020-09-07] VITALS: Ht 162.6 cm; Wt 126.0 kg
[~2020-09-07 16:44] MED LIST changes: -CARVEDILOL12.5 MG PO; +COREG3.125 MG PO; -FERROUS FUMARA324 MG PO; +IRON325 M1 PO; +NEURONTIN100 MG PO; -SYNTHROID25 MCG PO; +SYNTHROID50 MCG PO
--- OUTSIDE RECORDS SUMMARY | 2020-09-07 16:50 | XMS ---
PreManage Notification: RONY CORREIA Security Packing Checker Events No recent Security Events currently on file CRITERIA MET - History of Sepsis CARE PROVIDERS [facility] Intermediate [facility]-Health Records InternationalCLEVELAND CLINIC MARTIN SOUTH HOSPITALYoutopia [facility]. \F\ [employer] PHONE: [phone] [facility] 10/14/2019-[facility] PHONE: [phone] Jasbir has no Care Guidelines for this patient. Care History Medical/Surgical 10/14/2019 [facility] - PATIENT IS A [facility] ELIGIBLE, \T\middot;\T\nbsp; PLEASE REFER PATIENT TO [facility] FOR NON EMERGENT MEDICAL NEEDS. \T\middot;\T\nbsp; [facility] CAN SEE PATIENTS SAME DAY FOR APTS IF PATIENT CALLS FIRST THING IN THE MORNING. E.D. VISIT COUNT (12 MO.) 1 [facility] 6 ARMANDO Ronquillo TOTAL 7 NOTE: Visits indicate total known visits. ED/UCC VISIT TRACKING (12 MO.) 09/07/2020 16:45 [facility] TYPE: Emergency COMPLAINT: - ALTERED LOC 05/01/2020 16:57 [facility] TYPE: Emergency COMPLAINT: - MULTIPLE COMPLAINTS DIAGNOSES: - Displacement of other urinary catheter, initial encounter - Type 2 diabetes mellitus with diabetic neuropathy, unspecified - Other termite treater helper (current) drug therapy - oil heaterman (current) use of insulin - Other mechanical complication of other urinary catheter, initial encounter - MCFP (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 - Allergy status to other drugs, medicaments and biological substances 12/29/2019 15:15 [facility] TYPE: Emergency DIAGNOSES: - Sepsis, unspecified organism - Acute respiratory failure with hypercapnia - Acute cystitis without hematuria - Respiratory Distress - CHF, hypoxia, elevated troponin - Transient alteration of awareness 12/29/2019 09:29 [facility] TYPE: Emergency COMPLAINT: - LOW OXYGEN DIAGNOSES: - MCFP (current) use of oral hypoglycemic drugs - Localized swelling, mass and lump, left upper limb - Hypoxemia - oil heaterman (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 - Type 2 diabetes mellitus with diabetic neuropathy, unspecified - oil heaterman (current) use of insulin - Allergy status to other drugs, medicaments and biological substances - Other abnormalities of breathing - Other termite treater helper (current) drug therapy - Hypoxemia - Epilepsy, unspecified, not intractable, without status epilepticus - Morbid (severe) obesity due to excess calories - Heart failure, unspecified 12/17/2019 08:[address] [facility]: [facility] COMPLAINT: - SEIZURE 11/29/2019 16:38 [facility] TYPE: Emergency COMPLAINT: - FALL 10/12/2019 12:44 [facility] TYPE: Emergency COMPLAINT: - CHEST PAIN DIAGNOSES: - Abnormal coagulation profile - Type 2 diabetes mellitus with diabetic neuropathy, unspecified - oil heaterman (current) use of insulin - Other termite treater helper (current) drug therapy - Hypotension, unspecified - Dizziness and giddiness INPATIENT VISIT TRACKING (12 MO.) 12[facility]29/2019 [facility] DIAGNOSES: - Sepsis, unspecified [...] index [BMI] 70 or greater, adult - MCFP (current) use of insulin - Pulmonary hypertension, unspecified - Hypothyroidism, unspecified - Allergy status to other drugs, medicaments and biological substances - Opioid dependence, uncomplicated - oil heaterman (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 - Hypokalemia - Other termite treater helper (current) drug therapy - Obstructive sleep apnea (adult) (pediatric) - Epilepsy, unspecified, not intractable, without status epilepticus - Obesity, unspecified - Type 2 diabetes mellitus with diabetic polyneuropathy - Hyperlipidemia, unspecified 11/29/2019 19:07 [facility] TYPE: Medical Surgical COMPLAINT: - LEFT LEG CELLULITIS DIAGNOSES: - Abnormal levels of other serum enzymes - oil heaterman (current) use of opiate analgesic - Chronic pain syndrome - oil heaterman (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 - Pulmonary hypertension, unspecified - Hypomagnesemia - Repeated falls - Hyperkalemia - Cellulitis of left lower limb - Contact with and (suspected) exposure to other viral communicable diseases - Hypothyroidism, unspecified - oil heaterman (current) use of oral hypoglycemic drugs - Other senior living (current) drug therapy - Abnormal levels of other serum enzymes - Acute kidney failure, unspecified - Other specified abnormal findings of blood chemistry - oil heaterman (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 - Metabolic encephalopathy [...] - Severe sepsis without septic shock - MCFP (current) use of opiate analgesic - Essential (primary) hypertension - Body mass index [BMI] 60.0-69.9, adult - Other streptococcal sepsis - Pulmonary hypertension, unspecified - Repeated falls - Pressure ulcer of right heel, unspecified stage - Other streptococcal sepsis - Other specified abnormal findings of blood chemistry - Other senior living (current) drug therapy - Essential (primary) hypertension - Chronic pain syndrome - Tinea corporis - Morbid (severe) obesity with alveolar hypoventilation - Type 2 diabetes mellitus with diabetic neuropathy, unspecified - oil heaterman (current) use of oral hypoglycemic drugs - Tinea corporis [facility] DIAGNOSES: - Sepsis, unspecified organism - Sepsis, elevated troponin - Other specified abnormal findings of blood chemistry - Acute cystitis without hematuria [email or web address]
--- NOTE | 2020-09-07 22:45 | NUR ---
PT ARRIVES TO CCU ROOM 128, ADMITTED FOR BLOOD LOSS ANEMIA AND HYPERGYLCEMIA. PT WAS BROUGHT TO ED BY WHO STATES PT HAD AMS. PT ARRIVES VERY DROWSY BUT AROUSABLE, SPEECH IS SOMEWHAT SLURRED AND SLOW. PT IS ORIENTED TO SELF AND PLACE BUT DOES NOT KNOW WHY SHE WAS BROUGHT TO HOSPITAL. TRANSFERRED TO BED BY SLIDING 4 PERSON ASSIST. PT TO RECEIVE 2 UNITS PRBC'S AND TRANEXAMIC ACID AND BE PLACED ON AN INSULIN DRIP. INITIAL BLOOD SUGAR READING TOO HIGH FOR BEDSIDE MACHINE, DR MURRAY UPDATED AND GTT STARTED AT 8.8UNITS PER HOUR AND WILL START ON DRIP PROTOCOL.
--- NOTE | 2020-09-07 23:18 | NUR ---
FIRST UNIT OF PRBC'S STARTED INFUSING. PT DROWSY, FALLS ASLEEP WHILE BEING ASKED QUESTIONS. CURRENTLY RESTING WITH EYES CLOSED, RESP EVEN AND UNLABORED, RR 20, ETCO2 42, HR 70.
--- NOTE | 2020-09-08 | NUR ---
NEW IV STARTED, 20# IN RFA AND 22# ALSO IN RFA, ATTEMPTS X3. PT SLEPT THROUGH MOST OF THE IV STARTS.
--- NOTE | 2020-09-08 01:30 | NUR ---
FIRST UNIT OF PRBC'S HAS COMPLETED. PT RESTING IN BED, DROWSY, NO COMPLAINTS.
--- NOTE | 2020-09-08 03:14 | EKG ---
[facility] [address] [place] [address] Signed Normal sinus rhythm Right bundle branch block T wave abnormality, consider inferior ischemia Abnormal ECG When compared with ECG of 29-DEC-2019 10:03, T wave inversion more evident in Inferior leads Confirmed by THI MURRAY MD ([id number]) on 09/08/2020 3:14:19 AM Electronically Signed By: THI MURRAY MD 09/08/20 0314 PATIENT NAME: RONY CORREIA KANDI Electrocardiogram DATE OF : 64 PHYSICIAN: THI MURRAY MD REPORT #: [id number] REPORT IS CONFIDENTIAL AND NOT TO BE RELEASED WITHOUT AUTHORIZATION
--- NOTE | 2020-09-08 05:30 | NUR ---
PRBC INFUSION COMPLETED. PT VERY DROWSY IN BED, MOSTLY SLEEPS THROUGH NURSING CARES.
--- NOTE | 2020-09-08 06:35 | NUR ---
AM MEDS GIVEN, PT ASKS IF SHE CAN GO BACK TO SLEEP. 94% ON ROOM AIR, RR 20, DENIES NEEDS AT THIS TIME. REPOSITIONED.
--- NOTE | 2020-09-08 06:37 | NUR ---
ATTEMPTED TO PLACE PT ON BIPAP, RT IN ROOM TO SET BIPAP UP. PT WAS AGREEABLE AND TOLERATED IT WITHOUT PROBLEMS AND LAID BACK TO TRY TO SLEEP. AFTER APPROX 10 MINUTES PT REMOVED MASK SHE WAS HAVING CLEAR EMESIS. BIPAP REMOVED, PT CLEANED UP AND LEFT OFF OF BIPAP.
--- NOTE | 2020-09-08 08:00 | NUR ---
ASSESSMENT DONE. PATIENT WILL SAY A FEW WORDS AND FOLLOW FEW COMMANDS. VERY DROWSY. DUKES CATH IS PATENT WITH CLEAR YELLOW URINE NOTED. DENEIS PAIN. ALLEVYN DRESSING TO BACK OF LEFT THIGH REDRESSED. DR. MURRAY HERE TO VIEW WOUND.
--- NOTE | 2020-09-08 08:50 | NUR ---
PATIENT RESTING IN BED AT THIS TIME. CALL LIGHT WITHIN REACH NO FUTHER NEEDS AT THIS TIME.
--- NOTE | 2020-09-08 09:30 | NUR ---
OOB TO CHAIR VIA LIFT. IS AWAKE AND TALKING IN COMPLETE SENTANCES. ASKING HOW LONG SHE HAS BEEN HERE AND OTHER APPROP QUESTIONS. SCD'S ON. REQUESTING DIET POP AND BREAKFAST.
--- NOTE | 2020-09-08 13:00 | NUR ---
BACK TO BED WITH USE OF LIFT. SITTING UP IN BED FOR SMALL LUNCH. CONTINUES ON INSULIN GTT WITH Q [address] MCCORMICK UPDATED ON PATIENT STATUS. NO FUTHER ORDERS AT THIS TIME.
--- NOTE | 2020-09-08 14:00 | NUR ---
BMP HELD AT THIS TIME.
--- NOTE | 2020-09-08 14:03 | NUR ---
Patient sleeping, 02 sats to 86%, attempted to wake patient who does briefly respond to verbal response, sats to 88%, then patient again closes eyes. Respirations are even and unlabored, sats remain at 88%. 02 2L per NC applied, sats to 100%. Primary RN aware.
[2020-09-08] MEDS ORDERED: MAGOX 400400 MG PO (14:49)
[2020-09-08] MEDS ORDERED: SENNA8.6 MG PO (14:49)
[2020-09-08] MEDS ORDERED: HUMALOG100 UNIT/2 SUB-Q (14:54)
[2020-09-08] MEDS ORDERED: VOLTAREN ARTHRI20 GM TOP (14:55)
[2020-09-08] MEDS ORDERED: VITAMIN B-12500 MCG PO (14:56)
[2020-09-08] MEDS ORDERED: BACITRAYCIN PLU28 GM TOP (14:57)
[2020-09-08] MEDS ORDERED: VITAMIN C500 M1 PO (14:58)
[2020-09-08] MEDS ORDERED: TORSEMIDE20 MG PO (14:59)
[2020-09-08] MEDS ORDERED: METHOCARBAMOL500 MG PO (15:00)
[2020-09-08] MEDS ORDERED: GLUCOPHAGE500 MG PO (15:00)
[2020-09-08] MEDS ORDERED: KEPPRA500 MG PO (15:03)
[2020-09-08] MEDS ORDERED: FLONASE ALLERG9.9 ML NAS (15:15)
[2020-09-08] MEDS ORDERED: HYDROCODON-ACE1 EA11 PO (15:16)
--- NOTE | 2020-09-08 15:20 | NUR ---
DR. MURRAY UPDATED ON PATIENT CONDITION. TO PUT IN ORDERS. DR. DUBOIS HERE TO SEE PATIENT.
--- NOTE | 2020-09-08 16:01 | NUR ---
MED REC COMPLETE
--- NOTE | 2020-09-08 16:18 | NUR ---
ASSESSMENT DONE. NO CHANGES. DROWSY AT THIS TIME HOWEVER HAS BEEN AWAKE AND TALKATIVE AT DIFFERENT PERIODS THROUGH THE DAY. HAS NOT BEEN USING THE BIPA AT ALL TODAY. O2 SATS VARY FROM 86-94 ON ROOM AIR. C/O LOWER BACK PAIN. LIDIOCAINE PATCH TO LOWER BACK. ALLEVYN DRESSING TO LEFT THIGH REPLACED AGAIN. KCL INFUSING. INSULIN GTT DC'D.
--- NOTE | 2020-09-08 17:55 | NUR ---
SITTING UP IN BED EATING DINNER.
--- NOTE | 2020-09-08 18:30 | NUR ---
LABS DRAWN. O2 AT 1 L APPLIED O2 SAT 88. REFUSING BIPAP AT THIS TIME.
--- NOTE | 2020-09-08 19:04 | NUR ---
ALSEEP AT THIS TIME. REPRT TO NEXT SHIFT.
--- NOTE | 2020-09-08 19:15 | NUR ---
REPORT RECIEVED FROM DAY SHIFT RN, CARE OF PATIENT ASSUMED AT THIS TIME. PT CURRENTLY RESTING WITH EYES CLOSED, BREATHING EVEN AND UNLABORED. OXYGEN SATURATIONS 99 PERCENT ON 1 L NC. CALL LIGHT WITHIN REACH, NO ASSESSED NEEDS AT THIS TIME.
--- NOTE | 2020-09-08 19:38 | NUR ---
RECEIVED REPORT FROM DAYSIDFT RNS. pt LAYING BED WITH EYES CLOSED, RESPIRATIONS REGULAR AND UNLABORED. 1L O2 VIA NC. WHITEBOARD UPDATED. CALL LIGHT WITHIN REACH.
--- NOTE | 2020-09-08 20:30 | NUR ---
pt DROWSY. WOKE TO VOICE. MEDICATIONS GIVEN (SEE MAR). pt REPORTED 6/10 PAIN AT THIS TIME. DUKES EMPTIED. pt RESTING IN BED WITH EYES CLOSED, DID NOT REPLY TO QUIET VOICE. CALL LIGHT WITHIN REACH.
--- NOTE | 2020-09-08 20:45 | NUR ---
assessment completed. pt slept while assesment was completed but did wake to voice and touch. able to assist with repostioning in bed. lungs sound dim in both bases. Pt denies any pain. IV potassium continues to infuse. call light within reach. no further needs at this time.
--- NOTE | 2020-09-08 21:41 | NUR ---
Iv potassium completed. pt saline locked at this time. call light within reach. no further needs.
--- NOTE | 2020-09-09 01:08 | NUR ---
Assessment completed. Orozco care provided. Pt had moderate amount of bloody drainage from vaginal area. pericare performed. clean peripad applied. pt turned up onto right side with pillows. Pt alert and oriented, answering questions appropriately and participating in cares. temperature of 99.1, lung sounds diminished in both bases. educated patient on coughing and deep breathing. Pt questions answered. call light within reach. no further needs at this time.
--- NOTE | 2020-09-09 02:00 | NUR ---
PROVIDED A JELLO AND WATER PER PATIENT REQUEST. DENIES FURTHER NEEDS AT THIS TIME.
--- NOTE | 2020-09-09 05:07 | NUR ---
ASSESSMENT COMPLETED. PT DROWSY BUT AWAKENS TO VOICE. ASSISTED WITH REPOSITIONING IN BED. CALL LIGHT WITHIN REACH. DENIES FURTHER NEEDS AT THIS TIME.
--- NOTE | 2020-09-09 05:14 | NUR ---
pt given prn norco for back pain (see emar). denies further needs at this time. call light within reach.
--- NOTE | 2020-09-09 06:49 | NUR ---
8 OR MORE ATTEMPTS TO DRAW LABS BY Voice123 AND TWO RNS.
--- NOTE | 2020-09-09 07:30 | NUR ---
REPORT RECIEVED. PATIENT IS RESTFUL IN BED. NO DISTRESS NOTED AT THIS TIME.
--- NOTE | 2020-09-09 08:00 | NUR ---
ASSESSMENT DONE. TALKED WITH PATIENT ABOUT POC FOR DAY, INDICATES UNDERSTANDING. ACCUCHECK DONE, REG INSULIN 7 UNITS SQ GIVEN.
--- NOTE | 2020-09-09 09:50 | NUR ---
AM CARE GIVEN. DR. DUBOIS HERE TO SEE PATIENT AND TALK WITH PATIENT ABOUT [place] BIOPSY FOR TOMORROW. VERY MINIMAL VAGINAL BLEEDING NOTED.
--- NOTE | 2020-09-09 10:15 | NUR ---
OOB TO CHAIR VIA OVERHEAD LIFT.
--- NOTE | 2020-09-09 12:30 | NUR ---
ACCUCHECK 379, 11 UNITS REGULAR INSULIN SQ GIVEN.
--- NOTE | 2020-09-09 13:00 | NUR ---
TOOK LUNCH FAIR. CONTINUES TO SIT IN CHAIR. NORCO GIVEN PATIENT C/O BACK PAIN.
--- NOTE | 2020-09-09 14:15 | NUR ---
BACK TO BED VIA LIFT.
--- NOTE | 2020-09-09 15:30 | NUR ---
NAPPING, NO DISTRESS NOTED.
--- NOTE | 2020-09-09 16:10 | NUR ---
MODIFIED ASSESSMENT DONE. NO CHANGES.
--- NOTE | 2020-09-09 16:30 | NUR ---
LUMBER RACKER HERE TO EVALUATE PATIENT, ORDERS RECIEVED FOR CARE OF PRESSURE WOUNDS ON LEFT THIGH.
--- NOTE | 2020-09-09 17:07 | NUR ---
PT IS SEEN FOR A WOUND CONSULT OF THE LEFT POSTERIOR THIGH. SHE HAS 3 PRESSURE INJURIES FROM HER CHOLO SLING AT HOME. ALL 3 WOUNDS ARE UNSTAGEABLE AT THIS POINT THEY ARE COVERED IN ADHERED SLOUGH TISSUE. THE FIRST WOUND MEASURES 1.2CM X 1.3CM; THE SECOND 1.1CM X 5CM; THE THIRD 1.4CM X 1CM. THE EDGES OF THE WOUNDS ARE INTACT, WITH NO SIGNS OF UNDERMINGING OR TUNNELING. THERE A SMALL AMOUNT OF SEROSANGUINOUS DRAINAGE NOTED. THE PERIWOUND SKIN HAS HEMOSIDERINE STAINING PRESENT, BUT OTHERWISE VIABLE AND INTACT. THE PT REPORTS NO PAIN WITH THE ASSESSMENT OF CLEANSING OF THE WOUND. THE WOUND IS CLEANSED WITH WOUND CLEANSER AND A DEBRISOFT PAD TO CLEAN UP /FLAKING SKIN. A CAVILLON ADVANCED SKIN PREP IS APPLIED TO PERIWOUND SKIN. MEDIHONEY IS APPLIED TO ALL 3 WOUNDS, WHICH ARE THEN COVERED WITH AN ADHESIVE FOAM. IT IS RECOMMENDED THAT THIS DRESSING BEING CHANGE EVERY 3-4 DAYS OR NEEDED FOR SOILED DRESSINGS. ORDERS ARE IN THE COMPUTER.
--- NOTE | 2020-09-09 18:30 | NUR ---
TOOK DINNER FAIR. MINIMAL VAG BLEEDING.
--- NOTE | 2020-09-09 19:31 | NUR ---
PATIENT IS ASLEEP, REPORT TO NEXT SHIFT.
--- NOTE | 2020-09-09 19:55 | NUR ---
RECEIVED REPORT FROM [facility] RNS. pt RESTING IN BED WITH EYES CLOSED, RESPIRATIONS REGULAR AND UNLABORED. RATE 17. WHITEBOARD UPDATED. CALL LIGHT WITHIN REACH.
--- NOTE | 2020-09-09 22:20 | NUR ---
IN TO DO ASSESSMENT. pt WOKE TO VOICE. REPORTED 8/10 PAIN, PRN GIVEN WITH SCHEDULED MEDS (SEE MAR). pt ROLLED FOR ASSESSMENT WITH 2 PERSON ASSIST. ALLEVYN INTACT. SMALL AMOUNT OF BLOOD NOTED ON CHUX. PERICARE DONE. NEW PAD AND CHUX. DUKES CARE DONE. pt REPOSITIONED. ASSESSMENT DONE. NO FURTHER REQUESTS AT THIS TIME. CALL LIGHT WITHIN REACH.
--- NOTE | 2020-09-10 00:30 | NUR ---
ROUNDED ON pt. RESTING IN BED WITH EYES CLOSED, RESPIRATIONS REGULAR AND UNLABORED. SATS 90'S. CALL LIGHT WITHIN REACH.
--- NOTE | 2020-09-10 01:40 | NUR ---
IN TO DO ASSESSMENT. pt WOKE TO VOICE. EDUCATED ON BiPAP, pt REFUSED. REPOSITIONED 2PA. DUKES DRAINING LIGHT YELLOW URINE. PRE-OP TEACHING. pt ANXIOUS ABOUT BIOPSY. THERAPEUTIC COMMUNICATION. NO CHANGES IN ASSESSMENT. NO BLOOD NOTED ON PAD. CALL LIGHT WITHIN REACH.
--- NOTE | 2020-09-10 03:00 | NUR ---
pt DESATS INTO 70'S AND BACK TO LOW 90'S ON ROOM AIR WHILE ASLEEP. 1L O2 VIA NC. SATS MID TO HIGH 90'S.
--- NOTE | 2020-09-10 05:45 | NUR ---
LABS DRAWN. pt TOLERATED WELL. ASSESSMENT DONE. ASSISTED pt TO REPOSITION. NO BLOOD NOTED ON PAD. pt ANXIOUS ABOUT UP COMING PROCEDURE. PRE-OP TEACHING DONE. MEDICATIONS GIVEN (SEE MAR). pt REFUSED PRN PAIN MEDS AT THIS TIME, "IT'S OKAY RIGHT NOW". CALL LIGHT WITHIN REACH.
--- NOTE | 2020-09-10 07:45 | NUR ---
Spoke with Norbert. States she is awaiting surgery this afternoon. Denies needs, spouse will be in later today.
--- NOTE | 2020-09-10 08:11 | NUR ---
TOOK REPORT FRON DENISE BUTLER. PT IN ROOM SLEEING.
--- NOTE | 2020-09-10 08:56 | CONS ---
[facility] [address], [place] [address] Signed DATE OF CONSULTATION: 09/08/[address] Lazcano. CHIEF COMPLAINT: Acute and chronic blood loss anemia, endometrial mass. HISTORY: The patient is a 59-year-old G0 postmenopausal at age 49 with history of postmenopausal bleeding in the last four years. The patient was admitted through the emergency room yesterday for confusion, lethargy, and noted to have elevated blood sugars and severe anemia. The patient was transfused packed red blood cells and anemia is improving. Her blood sugars are improving with the insulin and the patient is recovering and also her vaginal bleeding seems much less after transfusion and treatment with tranexamic acid. I was called because of long history of postmenopausal bleeding and abnormal ultrasound. The patient was scheduled to see me tomorrow in the office for these problems, but since she was admitted, I am seeing her now. The patient describes bleeding off and on, sometimes light, sometimes heavy over the past four years. Not really able to relate this to anything or give specific length of time that the bleeding occurs, but apparently has gotten quite severely anemic because of this. The patient denies any severe pain and no previous problems. Premenopausally, she was having irregular periods and was treated for a long time with control pills because of this. She has not been on any hormone treatment since menopause started. PAST MEDICAL HISTORY: Remarkable for diabetes with peripheral neuropathy and diabetic retinopathy. She also has a history of hypertension, epilepsy, hypothyroidism, anxiety, obesity, possible previous heart failure and acute to chronic renal failure due to diabetes. She is mostly wheelchair bound and has chronic indwelling Orozco catheter, receives intermittent replacement. SURGICAL HISTORY: Cholecystectomy - 2003 CURRENT MEDICATIONS: Prior to admission according to records include: 1. Carvedilol. 2. Lispro insulin. 3. Hydrocodone. 4. Ferrous sulfate. 5. Lovastatin. 6. Metformin. 7. Baby aspirin. Electronically Signed By: KULDIP DUBOIS MD 09/09/20 1025 Electronically Signed By: KULDIP DUBOIS MD 09/10/20 0856 PATIENT NAME: RONY CORREIA CONSULTATION DATE OF : 64 REPORT #: [id number] PHYSICIAN: KULDIP DUBOIS MD PCP: DAYRON CRUZ REPORT IS CONFIDENTIAL AND NOT TO BE RELEASED WITHOUT AUTHORIZATION [facility] [address] [place] [address] Signed 8. Levothyroxine. 9. Gabapentin. 10. Methocarbamol. 11. Magnesium oxide. 12. Vitamin D. 13. Vitamin C. 14. Torsemide. 15. Keppra. ALLERGIES: Coded allergy: Pregabalin (Lyrica) SOCIAL HISTORY: Nonsmoker. No Alcohol. No Drugs. Prior ultrasound from 07/08/2020 shows normal size uterus with a heterogeneous mass containing some vascularity measuring 57 x 35 x 48 mm. This is suspicious for malignancy. Neither ovary was identified. No free fluid seen. IMPRESSION: Postmenopausal bleeding and endometrial mass. PLAN: The patient needs hysteroscopy with biopsy and hopefully removal of endometrial mass because of her severe medical problems with her being admitted, the safest time to do this procedure would be when she is here in the hospital being cared for and to be medically as stable as possible, so I would recommend proceeding with hysteroscopy and D and C during this hospitalizations as soon as surgery is cleared by the hospitalist and by Anesthesia. I will ask both to help decide when this would be possible. Thank you for this referral. I will be glad to follow her with you. MD RIDDHI PerrinB/THOMASL /[id number] Electronically Signed By: KULDIP DUBOIS MD 09/09/20 1025 Electronically Signed By: KULDIP DUBOIS MD 09/10/20 0856 PATIENT NAME: RONY CORREIA CONSULTATION DATE OF : 64 REPORT #: [id number] PHYSICIAN: KULDIP DUBOIS MD PCP: DAYRON CRUZ REPORT IS CONFIDENTIAL AND NOT TO BE RELEASED WITHOUT AUTHORIZATION [facility] [address] [place] [id number] Signed Copies: ~ Electronically Signed By: KULDIP DUBOIS MD 09/09/20 1025 Electronically Signed By: KULDIP DUBOIS MD 09/10/20 0856 PATIENT NAME: RONY CORREIA CONSULTATION DATE OF : 64 REPORT #: [id number] PHYSICIAN: KULDIP DUBOIS MD PCP: DAYRON CRUZ REPORT IS CONFIDENTIAL AND NOT TO BE RELEASED WITHOUT AUTHORIZATION
--- NOTE | 2020-09-10 10:00 | NUR ---
PT'S CHUCKS PAD CHANGED, SCANT RED 4CM RED AREA NOTED ON PT'S PAD. DRESSINGS ON L LEG AND LOWER BACK APPEAR TO BE IN TACT. PT PROVIDED PHONE. DENIES NEEDS AT THIS TIME.
--- NOTE | 2020-09-10 10:30 | NUR ---
CATH CARE PERFORMED BY LARA RN AND DENISE BUTLER. PT'S BEDDING AND AND BED BATH PERFORMED.
--- NOTE | 2020-09-10 10:42 | NUR ---
LAB CALLED PTS BLOOD BAND IS SET TO AT 185 TODAY. 2 UNITS REQUESTED TO BE ON HOLD.
--- NOTE | 2020-09-10 11:21 | NUR ---
LAB PERFORMS BLOOD DRAW.
--- NOTE | 2020-09-10 12:01 | NUR ---
HIBICLENSE USED TO PTS ENTIRE BODY. LINENS CHANGED.
--- NOTE | 2020-09-10 14:05 | NUR ---
LUKE WALKER IS CONCERNED ABOUT PT'S STATE OF MIND HEADING TO SURGERY LATER TODAY. SPENT TIME ENCOURAGING PT, SHE GOT SOMEWHAT EMOTIONAL. PT REQUESTED PRAYER, LEFT G.POST. WILL CONTINUE TO FOLLOW
--- NOTE | 2020-09-10 14:41 | NUR ---
ROBERT BUTLER FROM OR HERE TO COLLECT PT. REPORT GIVEN
--- NOTE | 2020-09-10 15:40 | NUR ---
UNABLE TO ADMINISTER ROBOX PT IS IN SURGERY.
--- NOTE | 2020-09-10 16:07 | NUR ---
09/10/20 1607 Danielle Carcamo 1601 PATIENT ARRIVES TO PACU UNRESPONSIVE TO VERBAL STIMULI. RESP EVEN AND UNLABORED, MASK AT 6 LITERS. 1605 PATIENT RESTING WITH EYES CLOSED. SPEAKING WITH STAFF. RESP EVEN AND UNLABORED, MASK CONTINUED AT 6 LITERS. PATIENT C/O CRAMPING ABD PAIN 5/10, BUT DOES NOT OPEN EYES.
--- NOTE | 2020-09-10 16:34 | NUR ---
PT RETURN TO CCU ROOM 128. PT REPORT TAKEN FROM JAELYN BUTLER. PT HAD A HYSTEROSCOPY WITH FIBROID REMOVAL. PT HAD 50 MCG FENTANYL BREAD WRAPPING MACHINE FEEDER IN PACU. EBL 500, 600ML FLUID INTAKE.
--- NOTE | 2020-09-10 17:37 | NUR ---
PT IN ROOM SLEEPING. WARM BLANKET PROVIDED. PT REQUETS POPSICLE. DIETARY CALLED. PT PLACED ONTO L NC D/T SAO2 DROPPING TO 88 WHILE SLEEPING.
--- NOTE | 2020-09-10 18:45 | NUR ---
PT'S FEMININ PAD CHECKED AND CHANGED. SMALL AMOUNT OF RED DRAINAGE NOTED ON PAD [id number] AFTER 2 HRS. PT NOT ACTIVLY DRAINING AT THIS TIME.
--- NOTE | 2020-09-10 19:07 | NUR ---
REPORT GIVEN TO CCU RN SHASTA RN, GARRET RN, AND RADHA BUTLER.
--- NOTE | 2020-09-10 19:10 | NUR ---
RECEIVE REPORT FROM DAYU SHIFT RN. PATIENT IS RESTING IN BED WITH EYE CLOSED, BREATHING IS EVEN AND UNLABORED. CALL LIGHT IN REACH.
--- NOTE | 2020-09-10 21:58 | NUR ---
ASSESMENT COMPLETED. INTAKE AND OUPUT RECORDED. VITALS TAKEN AND RECORDED. PATIENT REPOSITIONED IN BED. DUKES IN PLACE AND DRAINING CLEAR YELLOW URINE. PATIENT DENIES ANY PAIN. PATIENT HAS A SMALL AMOUNT OF RED DRAINAGE NOTED IN INEZ AREA. PATIENTS EVENING MEDICATIONS GIVEN PER ORDER. PATIENT PROVIDED WITH SBACK PER REQUEST. NO FURTHER NEEDS NOTED. CALL LIGHT IN REACH.
--- NOTE | 2020-09-10 22:22 | EKG ---
[facility] [address] [place], [place] [address] Signed Normal sinus rhythm Right bundle branch block Abnormal ECG When compared with ECG of 07-SEP-2020 16:46, No significant change was found Confirmed by THI MURRAY MD ([id number]) on 09/10/2020 10:22:33 PM Electronically Signed By: THI MURRAY MD 09/10/202221 PATIENT NAME: CADEROBERTRONY Electrocardiogram DATE OF : 64 PHYSICIAN: THI MURRAY MD REPORT #: [id number] REPORT IS CONFIDENTIAL AND NOT TO BE RELEASED WITHOUT AUTHORIZATION
--- NOTE | 2020-09-10 22:36 | NUR ---
PATIENT ATE SNACK. WARM BLANKET PROVIDEDED. LIGHTS TURNED OFF. NO FURTHER NEEDS NOTED. PATIENT IS NOW ON RA.
--- NOTE | 2020-09-11 00:38 | NUR ---
PATIENT REPOSITIONED. PATIENT HAS NO NEW DRAINAGE ON INEZ PAD. PATIENT DENIES ANY PAIN. PATIENT REMAINS ON RA. VITALS TAKEN AND RECORDED. DUKES EMPTIED AND DUKES CARE COMPLETED. NO FURTHER NEEDS NOTED. CALL LIGHT AND BELINGINGS DIAZ WITHIN REACH.
--- NOTE | 2020-09-11 01:11 | NUR ---
PATIENT REPORTS 8/10 GENERALIZED PAIN. PATIENT GIVEN PRN PAIN MEDICATION PER ORDER. PATIENT PROVIDED WITH FRESH WATER. NO FURTHER NEEDS NOTED. CALL LIGHT IN REACH.
--- NOTE | 2020-09-11 02:37 | NUR ---
PATIENT RESPOSITIONED IN BED. LOTION APPLIED TO LEGS AND, FEET, AND ANKLES. NO FURTHER NEEDS NOTED. CALL LIGHT IN REACH.
--- NOTE | 2020-09-11 04:35 | NUR ---
PATIENT REPOSITIONED. PATIENTS VITALS TAKEN AND RECORDED. INTAKE AND OUPUT RECORDED. PATIENT DENIES ANY NEEDS. CALL LIGHT IN REACH.
--- NOTE | 2020-09-11 06:57 | NUR ---
PATIENT REPOSITIONED. INEZ PAD HAS NOTED MINIMAL DRAINAGE. PATIENTS MORNING MEDICATTIONS GIVEN PER ORDER. NO FURTHER NEEDS NOTED. CALL LIGHT IN REACH.
--- NOTE | 2020-09-11 07:36 | NUR ---
TOOK REPORT FROM RADHA BUTLER. PT IN ROOM WATCHING TV. WARM BLANKETS PROVIDED.
--- NOTE | 2020-09-11 08:00 | NUR ---
PT PROVIDED BREAKFAST
--- NOTE | 2020-09-11 08:15 | NUR ---
0802, LAB CALLS WITH CRITICAL LAB VALUE HEMGLOBIN 7.[address] MURRAY NOTIFIED. PT RE RECIEVE 2 UNITS PRBC IN CCU.
--- NOTE | 2020-09-11 10:28 | NUR ---
LEFT A MESSAGE WITH DR. URBANO POSSIBLE PT D/C.
--- NOTE | 2020-09-11 12:02 | NUR ---
PT RESTING IN BED, SMITHA CHRISTIANSEN AT BS. PT IS TO DC LATER TODAY, SHE IS VERY HAPPY. THANKED ME FOR PREVIOUS PRAYER AND CONFESSED DIFFICULT MOMENTS WITH HER HEALTH ISSUES. DEBRIEFED, GAVE LEAN MANUFACTURING COORDINATOR AND PT REQUESTED PRAYER. ALSO GAVE PT A P.KASEY. WILL FOLLOW NEEDED
--- NOTE | 2020-09-11 12:12 | NUR ---
DIETARY PERFORMS CONSULT WITH PT AND PROVIDES RECOMENDATIONS. PT IN ROOM EATING LUNCH. PTS ALSO IN ROOM WATCHING TV.
--- NOTE | 2020-09-11 12:17 | NUR ---
PATIENT IN BED. , KULDIP, VISITING. HE DOES THE COOKING AT HOME. RONY DOES NOT LIKE MOST FAST FOOD AND HAS CUT DOWN ON HER CANDY AND POP INTAKE SINCE I LAST TALKED TO HER IN NOVEMBER 2019. KULDIP ADMITS THEY COULD ALWAYS IMPROVE THEIR EATING HABITS. HE TRIES TO DO A BALANCED MEAL OF A STARCH, PROTEIN AND VEGETABLE BUT SOMETIMES IT DOESN'T BALANCE OUT QUITE IT SHOULD. HE MIGHT MAKE CRAB ABDIEL. RONY LOVES FRESH FRUIT AND VEGGIES. ONE OF HER FAVORITE SNACKS IS RAW CUCUMBER THORNTON, RADISHES, AND OLIVES. SHE DOES NOT EAT A LOT AT ONE TIME AND STATES EATING IS NOT EXCITING FOR HER ANYMORE. HER BLOOD SUGARS WERE 130-150 AT HOME UNTIL SHE LOST A LOT OF BLOOD AND WASN'T THINKING STRAIGHT SO SHE WASN'T TAKING HER INSULIN. SHE CAME IN WITH A BLOOD SUGAR OF 1,062. SHE DOES EAT HEALTHY FOOD QUITE A BIT AND THINKS THIS IS JUST A BUMP IN THE ROAD AND SHE WILL GET BACK ON TRACK. SHE HAS NO FURTHER QUESTIONS AT THIS TIME. LUNCH BROUGHT IN. BLOOD SUGAR THIS MORNING WAS 350. CONTINUE 60 GM CONISTENT CARB DIET. NO FURTHER NUTRITION INTERVENTION AT THIS TIME.
--- NOTE | 2020-09-11 15:57 | NUR ---
PT D/C HOME WITH WITH EDUCATION AND PLAN TO F/U WITH PCP ON 09/14/20. PT WHEELED OUT BY W/C AND CURRENTLY WAITING IN LOBBY FOR W/C [employer] SERVICE.
--- NOTE | 2020-09-14 08:57 | OR ---
[facility] [address] [place] [id number] Signed DATE OF OPERATION: 09/10/2020 SURGEON: Harshil Levin MD Patient Dr. Lazcano. PREOPERATIVE DIAGNOSES: Endometrial mass, postmenopausal bleeding, acute and chronic blood loss anemia, and morbid obesity. POSTOPERATIVE DIAGNOSES: Endometrial mass, postmenopausal bleeding, acute and chronic blood loss anemia, and morbid obesity. PROCEDURE: Hysteroscopic partial myomectomy and endometrial curettage. SCRIPT GIRL: Dr. Harrell. ANESTHESIA: MAC. ESTIMATED BLOOD LOSS: Less than 10 mL. SPECIMEN: Submucous fibroid and fragments of endometrium. DRAINS: Orozco to bladder. PACKING: None. FINDINGS: The patient has a chronic indwelling Orozco catheter which was in place. The external genitalia showed slight erythema. Vagina showed no lesions. No blood. Cervix was thick, closed. Uterus was slightly enlarged. The patient is obese, difficult to accurately estimate during bimanual exam. The uterine cavity had approximately 4 cm Electronically Signed By: HARSHIL LEVIN MD 09/14/20 0857 PATIENT NAME: RONY CORREIA OPERATIVE REPORT DATE OF : 64 REPORT #: [id number] PHYSICIAN: HARSHIL LEVIN MD PCP: DAYRON CRUZ REPORT IS CONFIDENTIAL AND NOT TO BE RELEASED WITHOUT AUTHORIZATION [address] [address] Signed mass with a smooth surface. Apparently, submucous fibroid seemed to be attached at approximately 10 o'clock in the upper uterine cavity. The rest of the endometrium was normal in appearance and no other masses or lesions seen. COMPLICATIONS: Excessive calculated fluid deficit of 1500 mL with the Aqualux system, but it was estimated to have about 1000 mL of fluid in the drapes and on the floor at the end of the procedure. DESCRIPTION OF PROCEDURE: The patient was brought to the operating room, placed in supine position. After adequate MAC was obtained, was placed in dorsal lithotomy position, prepped and draped in usual sterile fashion. The patient has not had a Pap smear for 10 years, so Pap smear was done after placing a weighted speculum in the vagina. After Pap smear was done, anterior lip of the cervix was grasped with an Allis clamp and the hysteroscope with video attachment placed into the external os under direct visualization. The weighted speculum was then removed and the fluid turned on to help dilate the cervix and the hysteroscope with video attachment entered the endocervical canal and into the uterine cavity easily under direct visualization. The above findings were noted. The fluid deficit was slowly rising at all times, even though no procedures have been done yet, and the hysteroscope was obviously in the cavity, so it was decided to continue. The MyoSure REACH was placed through the hysteroscope and the tip seen through the hysteroscope and so the tip was then placed against the uterine mass and was began to be removed using the foot pedal to cut and suction the pieces out. As this was done, care was taken to stay in the midline and cut back and forth from posterior to anterior and then also from anterior to posterior. As this was done, fluid deficit continued to rise, even though it was not thought to be related to extravasation or uterine defect after reaching approximately 1500 mL, it was decided to not continue with the surgery because of the excess fluid deficit. The hysteroscope was removed. Polyp forceps gently inserted in an attempt to try to grasp the remaining tissue, but this was firm, thought to be fibroid and would not easily removable. So at this point, all instruments were removed from the uterus and cervix. Cervix was carefully examined. Good hemostasis was noted, so it was decided to terminate the procedure despite being unable to completely remove the endometrial mass. All instruments were removed from vagina. The patient tolerated the procedure well, went to recovery room in good condition. The sponge and instrument count were correct at the end of procedure. The curettings sent to Pathology for identification and Pap smear was taken to the office to be sent as regular Pap through the office. Electronically Signed By: HARSHIL LEVIN MD 09/14/20 0857 PATIENT NAME: RONY CORREIA OPERATIVE REPORT DATE OF : 64 REPORT #: [id number] PHYSICIAN: HARSHIL LEVIN MD PCP: DAYRON CRUZ REPORT IS CONFIDENTIAL AND NOT TO BE RELEASED WITHOUT AUTHORIZATION [facility] [address] [place] [address] Signed MD JUAN Perrin/LYNDA /[id number] Copies: ~ Electronically Signed By: HARSHIL LEVIN MD 09/14/20 0857 PATIENT NAME: RONY CORREIA OPERATIVE REPORT DATE OF : 64 REPORT #: [id number] PHYSICIAN: HARSHIL LEVIN MD PCP: DAYRON CRUZ REPORT IS CONFIDENTIAL AND NOT TO BE RELEASED WITHOUT AUTHORIZATION
--- NOTE | 2020-09-18 16:09 | PATH ---
[facility] [address] [place], [place] [address] Signed SPECIMEN(S): A FIBROID AND ENDOMETRIUM SPECIMEN SOURCE: A. FIBROID AND ENDOMETRIUM CLINICAL HISTORY: Endometrial mass FINAL PATHOLOGIC DIAGNOSIS: Endometrium and submucosal fibroid, biopsy: - Disordered proliferative endometrium with foci of glandular crowding with secretory changes. - Benign endometrial polyp. - Fragments of myometrium and leiomyoma with no histopathologic abnormality. - Negative for atypia or malignancy. - See comment. COMMENT: Sections of secretory phase endometrium are present with glandular crowding characterized by back to back glands. No cellular atypia is seen. This finding could be secondary to the phase of the endometrium, however simple hyperplasia cannot be excluded. Clinical correlation is required. As part of [employer]' Quality Improvement Program, this case was reviewed by another member of our pathology staff. NAL:cml:C2NR MICROSCOPIC EXAMINATION: Histologic sections of all submitted blocks are examined by light microscopy. These findings, together with the gross examination, support the pathologic diagnosis. GROSS DESCRIPTION: The specimen, labeled "Norbert Correia," and designated on the requisition "submucosal fibroid and endometrium," is received in formalin and consists of 6.5 x 3.6 x 0.4 cm aggregate of pink-red and white-de dios rubbery irregular tissue fragments. The specimen is entirely submitted in cassettes (A1-A3). FB (under the direct supervision of a pathologist) The Gross Description was prepared using a voice recognition system. The report was reviewed for accuracy; however, sound-alike word errors, addition and/or PATIENT NAME: NORBERT CORREIA PATHOLOGY DATE OF : 64 REPORT #: [id number] PHYSICIAN: BRIANNA FOSTER PCP: DAYRON CRUZ REPORT IS CONFIDENTIAL AND NOT TO BE RELEASED WITHOUT AUTHORIZATION [facility] [address] [place], [place] [address] Signed deletions may occur. If there is any question about this report, please contact Client Services. PERFORMING LABORATORY: The technical component was performed [place] [address] ([employer] Press Tender: Donna Bush MD; CLIA# [id number]). Professional interpretation was performed by [facility], [address] [address] (CLIA# [id number]). Diagnostician: Irma Kothari MD Pathologist Electronically Signed 09/18/2020 Copies: ~ PATIENT NAME: NORBERT CORREIA PATHOLOGY DATE OF : 64 REPORT #: [id number] PHYSICIAN: BRIANNA FOSTER PCP: DAYRON CRUZ REPORT IS CONFIDENTIAL AND NOT TO BE RELEASED WITHOUT AUTHORIZATION
== END 2020-09-11 15:50 | disposition home or self-care (01) | DRG 988 ==
LOC: ED 16:44 → CCU 21:08
PROVIDERS: General Practice; ADMIT Internal Medicine; ATTEND Internal Medicine
PROC: 30233N1 Transfusion of Nonautologous Red Blood Cells into Peripheral Vein, Percutaneous Approach (ICD-10-PCS; 2020-09-07)
PROC: 0UDB8ZX Extraction of Endometrium, Via Natural or Artificial Opening Endoscopic, Diagnostic (ICD-10-PCS; 2020-09-10)
PROC: 0UB98ZZ Excision of Uterus, Via Natural or Artificial Opening Endoscopic (ICD-10-PCS; principal; 2020-09-10 16:45)
DX: D62 Acute posthemorrhagic anemia (principal); Z68.42 Body mass index [BMI] 45.0-49.9, adult; Z20.822 Contact with and (suspected) exposure to COVID-19; N93.8 Other specified abnormal uterine and vaginal bleeding; N80.0 Endometriosis of uterus; N84.0 Polyp of corpus uteri; E66.01 Morbid (severe) obesity due to excess calories; E03.9 Hypothyroidism, unspecified; G89.4 Chronic pain syndrome; I12.9 Hypertensive chronic kidney disease with stage 1 through stage 4 chronic kidney disease, or unspecified chronic kidney disease; E11.22 Type 2 diabetes mellitus with diabetic chronic kidney disease; N18.9 Chronic kidney disease, unspecified; M19.90 Unspecified osteoarthritis, unspecified site; G40.909 Epilepsy, unspecified, not intractable, without status epilepticus; E11.65 Type 2 diabetes mellitus with hyperglycemia; F41.9 Anxiety disorder, unspecified; E11.42 Type 2 diabetes mellitus with diabetic polyneuropathy; E11.319 Type 2 diabetes mellitus with unspecified diabetic retinopathy without macular edema; S81.802D Unspecified open wound, left lower leg, subsequent encounter; Z99.3 Dependence on wheelchair; Z88.8 Allergy status to other drugs, medicaments and biological substances; Z79.899 Other long term (current) drug therapy; Z91.14 Patient's other noncompliance with medication regimen; Z79.82 Long term (current) use of aspirin; Z79.4 Long term (current) use of insulin; Z79.891 Long term (current) use of opiate analgesic
CPT/HCPCS: 00952; 36415; 36430; 71045; 80048; 80053; 81001; 82010; 82803; 83690; 83735; 84100; 84484; 85025; 86850; 86900; 86901; 86920; 88305; 93005; 93010; 94660; 99285-25; A9270; C9113; C9803; J0131; J1815; J2001; J2405; J2704; J3010; J3480; J7060; J7121; P9016; U0003

== ENCOUNTER 2020-11-04 08:53 | Inpatient (IN) | payer MEDICARE, OTHER ==
[~2020-11-04] VITALS: Ht 162.6 cm; Wt 130.0 kg
[~2020-11-04 08:53] MED LIST changes: +BACITRAYCIN PLU28 GM TOP; +FLONASE ALLERG9.9 ML NAS; +HUMALOG100 UNIT/2 SUB-Q; +HYDROCODON-ACE1 EA11 PO; +KEPPRA500 MG PO; +MAGOX 400400 MG PO; +METHOCARBAMOL500 MG PO; +SENNA8.6 MG PO; +TORSEMIDE20 MG PO; +VITAMIN B-12500 MCG PO; +VITAMIN C500 M1 PO; +VOLTAREN ARTHRI20 GM TOP
--- OUTSIDE RECORDS SUMMARY | 2020-11-04 08:56 | XMS ---
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 PHONE: [phone] Jasbir has no Care Guidelines for this patient. Care History Medical/Surgical 10/14/2019 [facility] - PATIENT IS A [facility] ELIGIBLE, \T\middot;\T\nbsp; PLEASE REFER PATIENT TO [facility] FOR NON EMERGENT MEDICAL NEEDS. \T\middot;\T\nbsp; [facility] CAN SEE PATIENTS SAME DAY FOR APTS IF PATIENT CALLS FIRST THING IN THE MORNING. E.D. VISIT COUNT (12 MO.) 1 [facility] 6 ARMANDO Ronquillo TOTAL 7 NOTE: Visits indicate total known visits. ED/UCC VISIT TRACKING (12 MO.) 11/04/2020 08:54 [facility] [place] TYPE: Emergency COMPLAINT: - SOB 09/07/2020 16:45 [facility] [place] TYPE: Emergency COMPLAINT: - ALTERED LOC 05/01/2020 16:57 [facility] [place] TYPE: Emergency COMPLAINT: - MULTIPLE COMPLAINTS DIAGNOSES: - Displacement of other urinary catheter, initial encounter - Type 2 diabetes mellitus with diabetic neuropathy, unspecified - Other roasterman (current) drug therapy - snf (current) use of insulin - Other mechanical complication of other urinary catheter, initial encounter - snf (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 - Allergy status to other drugs, medicaments and biological substances 12/29/2019 15:15 [facility] TYPE: Emergency DIAGNOSES: - Sepsis, unspecified organism - Acute respiratory failure with hypercapnia - Acute cystitis without hematuria - Respiratory Distress - CHF, hypoxia, elevated troponin - Transient alteration of awareness 12/29/2019 09:29 [facility] TYPE: Emergency COMPLAINT: - LOW OXYGEN DIAGNOSES: - snf (current) use of oral hypoglycemic drugs - Localized swelling, mass and lump, left upper limb - Hypoxemia - snf (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 - Type 2 diabetes mellitus with diabetic neuropathy, unspecified - supervisor intermediates (current) use of insulin - Allergy status to other drugs, medicaments and biological substances - Other abnormalities of breathing - Other correction (current) drug therapy - Hypoxemia - Epilepsy, unspecified, not intractable, without status epilepticus - Morbid (severe) obesity due to excess calories - Heart failure, unspecified 12/17/2019 08:16 [facility] TYPE: Emergency COMPLAINT: - SEIZURE 11/29/2019 16:38 [facility] TYPE: Emergency COMPLAINT: - FALL INPATIENT VISIT TRACKING (12 MO.) 09/07/2020 21:08 [facility] TYPE: Critical Care COMPLAINT: - BLOOD LOSS ANEMIA DIAGNOSES: - Type 2 diabetes mellitus with diabetic chronic kidney disease - Dependence on wheelchair - supervisor intermediates (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 - Hypertensive chronic kidney disease with stage 1 through stage 4 chronic kidney disease, or unspecified chronic kidney disease - Polyp of corpus uteri - Type 2 diabetes mellitus with diabetic polyneuropathy - Anxiety disorder, unspecified - Morbid (severe) obesity due to excess calories - Endometriosis of uterus - Patient's other noncompliance with medication regimen - Hypertensive chronic kidney disease with stage 1 through stage 4 chronic kidney disease, or unspecified chronic kidney disease - Body mass index [BMI] 45.0-49.9, adult - Acute posthemorrhagic anemia - supervisor intermediates (current) use of insulin - Unspecified open wound, left lower leg, subsequent encounter - supervisor intermediates (current) use of insulin - Hypothyroidism, unspecified - Other roasterman (current) drug therapy - Chronic pain syndrome - Epilepsy, unspecified, not intractable, without status epilepticus - Allergy status to other drugs, medicaments and biological substances - Endometriosis of uterus - Anxiety disorder, unspecified - Patient's other noncompliance with medication regimen - Morbid (severe) obesity due to excess calories - Type 2 diabetes mellitus with hyperglycemia - Chronic kidney disease, unspecified - Unspecified open wound, left lower leg, subsequent encounter - Dependence on wheelchair - Body mass index [BMI] 45.0-49.9, adult - Epilepsy, unspecified, not intractable, without status epilepticus - Other correction (current) drug therapy - Type 2 diabetes mellitus with hyperglycemia - Type 2 diabetes mellitus with diabetic chronic kidney disease - Type 2 diabetes mellitus with diabetic polyneuropathy - Type 2 diabetes mellitus with unspecified diabetic retinopathy without macular edema - snf (current) use of opiate analgesic - Allergy status to other drugs, medicaments and biological substances - Type 2 diabetes mellitus with unspecified diabetic retinopathy without macular edema - Other specified abnormal uterine and vaginal bleeding - snf (current) use of opiate analgesic - Other specified abnormal uterine and vaginal bleeding - Polyp of corpus uteri - snf (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 - Chronic kidney disease, unspecified - Unspecified osteoarthritis, unspecified site - Chronic pain syndrome - Unspecified osteoarthritis, unspecified site - Hypothyroidism, unspecified 12/29/2019 15:15 [facility] TYPE: Internal Medicine DIAGNOSES: - Sepsis, unspecified [...] index [BMI] 70 or greater, adult - supervisor intermediates (current) use of insulin - Pulmonary hypertension, unspecified - Hypothyroidism, unspecified - Allergy status to other drugs, medicaments and biological substances - Opioid dependence, uncomplicated - snf (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 - Hypokalemia - Other correction (current) drug therapy - Obstructive sleep apnea (adult) (pediatric) - Epilepsy, unspecified, not intractable, without status epilepticus - Obesity, unspecified - Type 2 diabetes mellitus with diabetic polyneuropathy - Hyperlipidemia, unspecified 11/29/2019 19:07 [facility] TYPE: Medical Surgical COMPLAINT: - LEFT LEG CELLULITIS DIAGNOSES: - Abnormal levels of other serum enzymes - supervisor intermediates (current) use of opiate analgesic - Chronic pain syndrome - snf (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 - Pulmonary hypertension, unspecified - Hypomagnesemia - Repeated falls - Hyperkalemia - Cellulitis of left lower limb - Contact with and (suspected) exposure to other viral communicable diseases - Hypothyroidism, unspecified - snf (current) use of oral hypoglycemic drugs - Other roasterman (current) drug therapy - Abnormal levels of [...] - Severe sepsis without septic shock - supervisor intermediates (current) use of opiate analgesic - Essential (primary) hypertension - Body mass index [BMI] 60.0-69.9, adult - Other streptococcal sepsis - Pulmonary hypertension, unspecified - Repeated falls - Pressure ulcer of right heel, unspecified stage - Other streptococcal sepsis - Other specified abnormal findings of blood chemistry - Other correction (current) drug therapy - Essential (primary) hypertension - Chronic pain syndrome - Tinea corporis - Morbid (severe) obesity with alveolar hypoventilation - Type 2 diabetes mellitus with diabetic neuropathy, unspecified - supervisor intermediates (current) use of oral hypoglycemic drugs - Tinea corporis [email or web address]
--- NOTE | 2020-11-04 11:26 | EKG ---
[facility] [address] [place], [place] [address] Signed Normal sinus rhythm Right bundle branch block Abnormal ECG When compared with ECG of 10-SEP-2020 11:42, No significant change was found Confirmed by CRYSTAL LOBATO DO ([id number]) on 11/04/2020 11:26:01 AM Electronically Signed By: CRYSTAL LOBATO DO 11/04/20 1126 PATIENT NAME: RONY CORREIA Electrocardiogram DATE OF : 64 PHYSICIAN: CRYSTAL LOBATO DO REPORT #: [id number] REPORT IS CONFIDENTIAL AND NOT TO BE RELEASED WITHOUT AUTHORIZATION
--- NOTE | 2020-11-04 14:18 | NUR ---
PATIENT ARRIVES TO CCU FOR HYPOXIA FROM THE ER AT 1300. PATIENT HAD LOW OXYGEN SATS THIS MORNING AND WAS BROUGHT TO THE ER. PT WAS RULED OUT FOR HAVING A POTENTIAL PULM EMBOLISM, AND IS REQUIRING LESS 02 NOW. PT CURRENTLY ON 4 L NC. MIDLINE PLACED IN RIGHT UPPER ARM BY THIS RN IN ER. PATIENT ALSO HAS A 20 G IN RIGHT AC. IV ABX STARTED HERE AND ORAL ABX GIVEN WELL. PT HAS BEEN RECEIVING TREATMENT FOR A UTI AN OUTPATIENT AT HOME, AND CURRENTLY GETS HER DUKES CATH CHANGED EVERY [address] MARKS. PT'S AT BEDSIDE WITH PATIENT. PT ON A 60 GM CONS CARB DIET BUT DOESN'T HAVE HER DENTURES YET, AND DOENS'T WANT TO EAT UNTIL HER , KULDIP, RETURNS WITH THEM. PT GIVEN A 500 ML BOLUS IN ER. WILL CONTINUE TO MONITOR.
--- NOTE | 2020-11-04 16:18 | NUR ---
PATIENT RESTING ON LEFT SIDE AT THIS TIME. PATIENT WAS ABLE TO EAT SOME CREAM OF CHICKEN SOUP FOR A LATE LUNCH AND IS NOW RESTING AGAIN. PATIENT NOW HAS LIDOCAINE PATCHES ON BOTH LEFT KNEE AND HER LOWER BACK. PT IS NOW ON 3 L NC. LAST BP 113/55 (72). HR IN THE 80s, SINUS. PT'S CALLED PER HER REQUEST TO ASK HIM TO BRING HER GLASSES WELL.
--- NOTE | 2020-11-04 18:55 | NUR ---
PATIENT FINISHED HER DINNER MUCH SHE COULD AND IS NOW RESTING AGAIN. PT'S BACK IN ROOM AND PROVIDED HIM WITH DINNER WELL. OXYGEN DOWN TO 1L NC AND SP02 IS 95% AT THIS TIME. DUKES EMPTIED FOR 150 ML. PT EAGER TO HAVE HER NEXT PAIN MEDICATION.
--- NOTE | 2020-11-04 19:20 | NUR ---
RECEIVED REPORT FROM FLORENTIN. IN TO ROUND ON pt. RESTING IN BED ON LEFT SIDE. LEAVING AT THIS TIME. pt DROWSY BUT APPROPRIATE. NO REQUESTS AT THIS TIME. CALL LIGHT WITHIN REACH. WHITEBOARD UPDATED.
--- NOTE | 2020-11-04 21:00 | NUR ---
IN TO DO ASSESSMENT. pt RESTING IN BED. TOOK A FEW MINUTES TO WAKE UP BUT WAS APPROPRIATE AFTER WAKING. DUKES CARE DONE. pt REQUESTED THAT IT BE CHANGED TOMORROW. ASSESSMENT DONE. LOWER LUNGS COARSE. RESPIRATIONS IN THE 20'S, REPOSITIONED FOR BETTER BREATHING. DRESSING TO LEFT LEG INTACT. REMOVED LIDOCAINE PATCHES FROM LEFT KNEE AND RIGHT BACK. pt ASSISTED WITH TURNING. NOTED SLIGHT SKIN BREAKDOWN BETWEEN GREAT AND SECOND TOE ON RIGHT FOOT. HEELS FLOATING ON PILLOW. PROVIDED ICE WATER. NO FURTHER REQUESTS AT THIS TIME. CALL LIGHT WITHIN REACH.
--- NOTE | 2020-11-04 21:30 | NUR ---
CALL RECEIVED FROM OF pt. UPDATE GIVEN. ALL QUESTIONS ANSWERED.
--- NOTE | 2020-11-04 21:59 | NUR ---
IN TO GIVE MEDICATION pt REPORTED PAIN IS NOW /10 DOWN FROM 01/01. NO BM AT THIS TIME. ASSISTED TO REPOSITION. NO FURTHER REQUESTS AT THIS TIME. CALL LIGHT WITHIN REACH.
--- NOTE | 2020-11-04 23:34 | NUR ---
ROUNDED ON pt. RESTING IN BED AWAKE. PROVIDED WITH FRUIT CUP PER REQUEST. CALL LIGHT WITHIN REACH.
--- NOTE | 2020-11-05 00:29 | NUR ---
pt RESTING IN BED WITH EYES CLOSED, RESPIRATIONS REGULAR. ROOM AIR TRIAL, pt QUICKLY DESATTED TO 87%, SATS INCREASED TO 94% WITH 1L O2. OPENED EYES, ASSESSMENT DONE. DENIES SOB. NO CHANGES IN ASSESSMENT. PROVIDED WITH ICE CHIPS. NO FURTHER REQUESTS AT THIS TIME. CALL LIGHT WITHIN REACH.
--- NOTE | 2020-11-05 02:00 | NUR ---
ROUNDED ON pt AWAKE IN BED. 2PA TO TURN pt TO SIDE. CALL LIGHT WITHIN REACH.
--- NOTE | 2020-11-05 03:00 | NUR ---
pt O2 SAT 100% ON 1L. TITRATED TO ROOM AIR. O2 SAT >90%.
--- NOTE | 2020-11-05 03:56 | NUR ---
CALL LIGHT ON. pt HAD LARGE BM, PART WAS FORMED AND PART WAS UNFORMED. INEZ CARE DONE, FRESH DEPENDS. pt ASSISTED WITH TURNING. NO CHANGES IN ASSESSMENT. pt REPOSITIONED WITH ICE CHIPS AND FRUIT CUP. CALL LIGHT WITHIN REACH.
--- NOTE | 2020-11-05 04:29 | NUR ---
CALL LIGHT ON. ASSISTED pt TO REPOSITION. LABS DRAWN. pt WOULD LIKE TO "GET SOME MORE SLEEP" LIGHTS OFF. CALL LIGHT WITHIN REACH.
--- NOTE | 2020-11-05 06:51 | NUR ---
ROUNDED ON pt. RESTING IN BED WITH EYES CLOSED, RESPIRATIONS REGULAR AND UNLABORED. CALL LIGHT WITHIN REACH.
--- NOTE | 2020-11-05 07:22 | NUR ---
TOOK REPORT FROM JUNAID BUTLER. PT IN ROOM SLEEPING.
--- NOTE | 2020-11-05 08:18 | NUR ---
PT ADJUSTED IN BED AND PROVIDED BREAKFAST. DENIES NEEDS AT THIS ITME.
--- NOTE | 2020-11-05 09:00 | NUR ---
OT/PT HERE TO SEE PT.
--- NOTE | 2020-11-05 09:30 | NUR ---
IN TO PATIENT ROOM, PATIENT ATTEMPTING TO SLEEP. CASE MANAGEMENT ASSESSMENT COMPLETED. PATIENT PREFERS TO DISCHARGE HOME WITH HER WHEN STABLE. PATIENT IS CURRENTLY BED BOUND. SHE STATES SHE HAS A CHOLO, WALKER AND WHEELCHAIR AT HOME. PATIENT IS CURRENTLY RECVING HOME HEALTH SERVICES FROM [facility]. PATIENT STATES SHE PREFERS TO DISCHARGE HOME WITH HER WHEN STABLE. DEMOGRAPHIC INFORMATION CONFIRMED. WILL CONTINUE TO FOLLOW UP WITH PATIENT DURING HER STAY.
--- NOTE | 2020-11-05 10:30 | NUR ---
DUKES CATH CHANGED
[2020-11-05] MEDS ORDERED: LAXATIVE PEG 3510 GM PO (11:07)
--- NOTE | 2020-11-05 11:38 | NUR ---
MED REC COMPLETE
--- NOTE | 2020-11-05 12:00 | NUR ---
REPORT RECIEVED FROM LUKE CHOWDARY. PATIENT TO FLOOR. BG CHECK IS 196.
--- NOTE | 2020-11-05 12:01 | NUR ---
PT TAKEN TO MS ROOM 122. REPORT GIVEN TO GYPSY BUTLER. PT BELONGINGS TRAVEL WITH PT. PT CONTINUES ON 1L NC.
--- NOTE | 2020-11-05 12:48 | NUR ---
PATIENT TO MED SURG, VITALS AND ASSESSMENT DONE. BLOOD GLUCOSE, IV ABX AND TYLENOL GIVEN. PATIENT IS SITTING UP TO EAT LUNCH, DENIES OTHER NEEDS AT THIS TIME.
--- NOTE | 2020-11-05 13:26 | NUR ---
PATIENT GIVEN ONE NORCO FOR 9/10 NEUROPATHIC PAIN.
--- NOTE | 2020-11-05 13:48 | NUR ---
NOTIFIED SRIKANTH LERNER RN OF POSITIVE BLOOD CULTURES 1321, ROOM 122 GRAM POSITIVE IN CLUSTERS, REPORTED BY SHILPA FROM LAB.
--- NOTE | 2020-11-05 13:52 | NUR ---
PT ALERT, ORIENTED AND ADMITTEDLY IN PAIN AND WAITING FOR PAIN MEDS. PT FEELS FREE TO EXPRESS HOW SHE FEELS ABOUT HER CONDITION. MOURNING THE LOSS OF A LIFESTYLE SHE DESIRES TO HAVE BACK. MOURNS THE LOSS OF HER BROTHER AND FREEDOM TO DO THINGS ON HER OWN. GAVE EDUCATION OFFICER AND ENCOURAGEMENT. PT REQUESTED PRAYER, WILL FOLLOW NEEDED
--- NOTE | 2020-11-05 14:25 | NUR ---
PATIENT GIVEN SCHEDULED GABAPENTIN, RATES PAIN 6/10 POST NORCO. PATIENT HOYERED TO WHEELCHAIR TO WORK WITH PHYSICAL THERAPY. LINENS CHANGED.
--- NOTE | 2020-11-05 15:17 | NUR ---
PATIENT DID WELL WITH PHYSICAL THERAPY, USED WHEELCHAIR FOR MOBILITY IN HALLWAY. PATIENT REPOSITIONED TO LEFT SIDE, SKIN INTACT, PILLOW BETWEEN KNEES.
--- NOTE | 2020-11-05 16:51 | NUR ---
PATIENT HAS DONE WELL TODAY, WORKED WITH PHYSICAL THERAPY, AND IS LOOKING FORWARD TO GOING HOME TOMORROW. GIVEN WARM BLANKET AND CUP OF ICE. SPOUSE IS IN ROOM WITH PATIENT TO HAVE DINNER WITH HER.
--- NOTE | 2020-11-05 18:21 | NUR ---
PATIENT REPOSITIONED TO LEFT SIDE, PILLOWS BEHIND BACK.
--- NOTE | 2020-11-05 21:39 | NUR ---
PT ARRIVED TO MEDSUR FLOOR WITH EMS, TRANSFERED FROM [facility] IN [place]. PT IS ALERT AND ORIENTED. VS TAKEN AND STABLE, ASSISTED PT TO RESTROOM SBA WITH CANE AND BACK TO BED. ORIENTED PT TO ROOM AND CALL LIGHT. DR MURRAY NOTIFIED PT IS HERE AND SHE IS NOW IN THE ROOM WITH PT.
--- NOTE | 2020-11-05 22:30 | NUR ---
ASSESSMENT COMPLETE, SCHEDULED MEDS GIVEN (SEE EMAR). pt A/OX4, REPORTS TOLERABLE PAIN 10/31, DENIES NEED FOR PAIN MEDICATION AT THIS TIME, WILL MONITOR. MIDLINE DRESSING C/D/I, FLUSHED WITH NORMAL SALINE PER POLICY, ALCOHOL CAP IN PLACE. pt REPOSITIONED WITH HELP FROM IVAN MOREJON PER pt REQUEST AND PILLOW PLACED UNDER RIGHT HIP, REFUSES PILLOW UNDER LEFT SIDE AT THIS TIME AND STATES, "I WANT TO WATCH TV". VERY SCANT VAGINAL BLEEDING NOTED WHEN REPOSITIONING pt, pt STATES, "DR DUBOIS IS MY DOCTOR. I HAD A UTERINE FIBROID AND HE TOLD ME TO CALL HIM IF IT BLEEDS FOR MORE THAN 8 DAYS AND HE WOULD HAVE TO GO BACK AND FINISH THE PRCEDURE". pt REPORTS LAST TIME SHE EXPERIENCED VAGINAL BLEEDING IT WAS [address] MURRAY MADE AWARE OF ABOVE DETAILS AND CONVERSATION WITH pt, NO NEW ORDERS. WILL MONITOR. INEZ PADS X2 IN PLACE. ALLEVYN DRESSING TO LEFT BACK OF THIGH C/D/I. IVAN MOREJON COLLECTING I&O'S, CALL LIGHT IN REACH.
--- NOTE | 2020-11-05 22:40 | NUR ---
IN TO ASSIST RN WITH I&Os, TURNING AND BOOSTING PT, INEZ/CATH CARE COMPLETED, PT POSITION TO LEFT SIDE, PILLOW TO SUPPORT BACKSIDE AND PANUS/KEEP OFF RAIL, PILLOW CASE IN BETWEEN INNERTHIGHTS/BY DUKES TUBE, SANDWHICH BOX PROVIDED, NO FURTHER NEEDS AT THIS TIME
--- NOTE | 2020-11-05 23:01 | NUR ---
IN TO ASSIST PT WITH OPENING SANDWHICH BOX, OPENED APPLESUACE LID AND GRANOLA BAR FOR PT, NO FURTHER NEEDS
--- NOTE | 2020-11-06 01:17 | NUR ---
CALL LIGHT ANSWERED, pt GRIMACING AND WHIMPERING IN BED, REPORTS 10/10 PAIN. PRN HS NORCO GIVEN, SEE EMAR. pt RESTLESS IN BED AND REPORTS NEUROPATHIC PAIN, pt REPOSITIONED IN BED. pt SLOW MOVING AND REQUIRES LARGE AMOUNT OF ASSISTANCE TO CHANGE POSITIONS WHEN MOVING LLE AND HIPS. BILATERAL HIPS FLOATED AND PILLOWS TO OUTER BLIATERAL KNEES. pt THEN STATES, "I NEED YOU TO CHECK MY OXYGEN BECAUSE I HAVE A HEADACHE". O2 SAT 94% ON RA, HR 70'S. COOL RAG DECLINED BY pt, pt DOES REQUEST ICE CHIPS. ICE CHIPS PROVIDED, NO FURTHER NEEDS, CALL LIGHT IN REACH.
--- NOTE | 2020-11-06 01:18 | NUR ---
IN TO PROVIDE PT WITH ICE CHIPS
--- NOTE | 2020-11-06 01:42 | NUR ---
pt AGAIN REPOSITIONED WITH HELP FROM IVAN MOREJON, BILATERAL HIPS REMAIN FLOATED. pt STATES PAIN IN FEET IS "BETTER". CALL LIGHT IN REACH, NO FURTHER NEEDS.
--- NOTE | 2020-11-06 03:30 | NUR ---
pt RESTING QUIETLY, SPOT CHECKED, SPO2 SAT ON RA LOW TO MID 80'S. 2LNC IN PLACE, O2 SAT QUICKLY ESTELLE TO MID 90'S AND SUSTAINING, NOT TITRATED TO 1LNC. RR EVEN AND UNLABORED, CALL LIGHT IN REACH.
--- NOTE | 2020-11-06 04:36 | NUR ---
SPO2 ALARMING WHILE PT IS RESTING, 87-88%, THIS [employer] OPERATOR CHECKED WAVEFORM AND SENSOR WAS ON PTs FINGER PROPERLY, INFORMED RN, IN TO CHECK O2
--- NOTE | 2020-11-06 04:40 | NUR ---
SPO2 CURRENTLY UPPER 80'S, O2 TITRATED TO 2LNC, O2 SAT NOW SUSTAINING IN LOW TO MID 90'S, RR EVEN AND UNLABORED. CALL LIGHT IN REACH.
--- NOTE | 2020-11-06 07:00 | NUR ---
assessment complete, no new changes or concerns. o2 sat 99%on 2lnc, titrated to 1lnc. no further needs, call light in reach.
--- NOTE | 2020-11-06 08:00 | NUR ---
REPORT RECEIVED FROM NIGHT RN AND PT. CARE RESUMED. PT. IS ALERT AND ORIENTED. C/O 8/10 HIP AND BACK PAIN. ADMIN. PO NORCO. PT. ASSISTED BY 2 STAFF WITH REPOSITIONING TO SIDE AND HER ATTENDS, AND INEZ PAD CHANGED. THERE IS A SMALL AMOUNT OF LIGHT RED VAGINAL BLEEDING PRESENT. CATHETER CLEANED AND PATENT, DRAINING CLEAR YELLOW URINE. PT. IS ANXIOUS AND VERBALLY AGRESSIVE WITH STAFF. THERAPEUTIC COMMUNICATION USED. PT. STATES SHE WILL BE GOING HOME TODAY REGARDLESS OF WHAT THE MD SAYS. MIDLINE WNL AND FLUSHES, RETURNS BLOOD. IV SITE WNL. HEAL PROTECTORS IN PLACE. PT. REFUSED TO ALLOW PRESSURE INJURY ON BACK OF THE RIGHT THIGH TO BE UNDRESSED FOR ASSESSMENT OR FOR PHOTOS TO BE TAKEN. ALLEVYN COVERING WOUND IS CDI. LUNGS CLEAR THROUGHOUT. DISCUSSED PAIN MEASURES, MEDS AND POC. PT. LEFT RESTING WITH CALL LIGHT IN REACH.
--- NOTE | 2020-11-06 10:47 | NUR ---
Patient called in regards to BM and needed assistance. Patient scooby care and catheter care was completed. Room tidied, trash emptied, breaux emptied, Is and Os charted. Call light left within reach. No other immediate needs at this time.
--- NOTE | 2020-11-06 10:54 | NUR ---
PT. HAD A LARGE INCONTINENT BM. ATTENDS AND INEZ PAD CHANGED, BARRIER CREAM APPLIED. DUKES CARE PERFORMED. PT. ASSISTED WITH REPOSITIONING AND BROUGHT ICE CHIPS. LEFT RESTING WITH CALL LIGHT IN REACH.
--- NOTE | 2020-11-06 10:58 | NUR ---
NUTRITION CONSULT RECEIVED FOR PRESSURE ULCER TO BACK OF THIGH. THIS IS NOT A NEW WOUND FOR HER. SHE STATES IT IS HEALING. KEEPING HER BLOOD SUGARS 150 OR LOWER HELPS AND SHE HAS BEEN DOING REALLY WELL CHECKING HER BLOOD SUGAR, TAKING HER INSULIN TWICE A DAY, AND EATING SMALL AMOUNTS MORE FREQUENTLY. SHE WASN'T SURE WHAT HER DIET ORDER MEANT SO I EXPLAINED SHE CAN HAVE UP TO 60 GM OF CARBS PER MEAL, SHE THOUGHT IT WAS 60 GM CARBS FOR THE WHOLE DAY. SHE HAS A GOOD APPETITE AND FEELS MUCH BETTER OVERALL. SHE CONTINUES TO WORK ON EATING PROTEIN FOODS THROUGHOUT THE DAY. SHE DOES NOT LIKE YOGURT OR COTTAGE CHEESE. EATS SALMON ABOUT ONCE EVERY 10 DAYS. DOES EAT CHICKEN, ALBACORE TUNA, AND A HARD-BOILED EGG WELL. NO OTHER NUTRITION INTERVENTION AT THIS TIME. WILL REMAIN AVAILABLE NEEDED.
--- NOTE | 2020-11-06 11:16 | NUR ---
PATIENT CALLED REQUESTING REPOSITIONING ASSISTANCE BEFORE LUNCH. TIDIED PATIENT ROOM, EMPTIED TRASH, CALL LIGHT LEFT WITHIN REACH. PATIENT WAS ON A PERSONAL CALL, NO OTHER IMMEDIATE NEEDS AT THIS TIME.
--- NOTE | 2020-11-06 12:21 | NUR ---
PT ON PHONE-LEFT G.POST AND BLESSING. PT THANKED ME. WILL FOLLOW
[2020-11-06] MEDS ORDERED: DOXYCYCLINE HY100 MG PO (13:25)
--- NOTE | 2020-11-06 13:30 | NUR ---
ADVISED BY MD OF PATIENT PLAN FOR DISCHARGE TO HOME. INTO PATIENT ROOM, PATIENT AWAKE. PATIENT SITTING IN THE CHAIR AT BEDSIDE. PATIENT STATES HER HAS REACHED OUT TO [employer] [facility] AT THIS TIME. PATIENT AND TO LET CASE MANAGEMENT KNOW IF THEY ARE UNABLE TO ARRANGE TRANSPORT VIA [facility]. ADVISED DR. MURRAY THAT PATIENT IS ESTABLISHED WITH [facility] AND CONTINUANCE ORDER ARE NEEDED. ORDER RECVD. ORDER AND DISCHARGE SUMMARY FAXED TO [facility].
== END 2020-11-06 14:55 | disposition home or self-care (01) | DRG 193 ==
LOC: ED 08:53 → CCU 12:20 → MS 11-05 11:55
PROVIDERS: Emergency Medicine; ADMIT Student in an Organized Health Care Education/Training Program; ATTEND Student in an Organized Health Care Education/Training Program
PROC: 05HD33Z Insertion of Infusion Device into Right Cephalic Vein, Percutaneous Approach (ICD-10-PCS; principal; 2020-11-04 11:00)
DX: J15.9 Unspecified bacterial pneumonia (principal); J96.01 Acute respiratory failure with hypoxia; F11.20 Opioid dependence, uncomplicated; Z20.822 Contact with and (suspected) exposure to COVID-19; J12.9 Viral pneumonia, unspecified; E66.01 Morbid (severe) obesity due to excess calories; I10 Essential (primary) hypertension; G47.33 Obstructive sleep apnea (adult) (pediatric); I27.20 Pulmonary hypertension, unspecified; E11.51 Type 2 diabetes mellitus with diabetic peripheral angiopathy without gangrene; E78.5 Hyperlipidemia, unspecified; E03.9 Hypothyroidism, unspecified; G89.29 Other chronic pain; G40.909 Epilepsy, unspecified, not intractable, without status epilepticus; Z88.8 Allergy status to other drugs, medicaments and biological substances; Z79.4 Long term (current) use of insulin; Z79.899 Other long term (current) drug therapy
CPT/HCPCS: 36569; 36600; 71045; 71260; 80048; 80053; 81001; 82803; 83605; 83735; 84484; 85025; 85379; 93005; 93010; 93306; 94667; 94668; 97116; 97162; 97167; 97530; 99285-25; A9270; C1751; C9803; J0696; J1650; J1815; J7040; U0003

== ENCOUNTER 2021-05-04 08:28 | Emergency (ER) | payer MEDICARE, OTHER ==
[~2021-05-04] VITALS: Ht 162.6 cm; Wt 129.7 kg
[~2021-05-04 08:28] MED LIST changes: +DOXYCYCLINE HY100 MG PO; +LAXATIVE PEG 3510 GM PO
--- OUTSIDE RECORDS SUMMARY | 2021-05-04 09:28 | XMS ---
PreManage Notification: RONY CORREIA Security Document Coordinator Events No recent Security Events currently on file CRITERIA MET - [facility]: Unknown [facility] 10/14/2019-[facility] PHONE: [phone] Jasbir has no Care Guidelines for this patient. Care History Medical/Surgical 10/14/2019 [facility] - PATIENT IS A [facility] ELIGIBLE, \T\middot;\T\nbsp; PLEASE REFER PATIENT TO [facility] FOR NON EMERGENT MEDICAL NEEDS. \T\middot;\T\nbsp; [facility] CAN SEE PATIENTS SAME DAY FOR APTS IF PATIENT CALLS FIRST THING IN THE MORNING. E.D. VISIT COUNT (12 MO.) [address] [facility] TOTAL 4 NOTE: Visits indicate total known visits. ED/UCC VISIT TRACKING (12 MO.) 05/04/2021 08:28 [facility] TYPE: Emergency COMPLAINT: - VAGINAL BLEEDING 03/26/2021 15:05 [facility] TYPE: Emergency COMPLAINT: - CATHETER PROBLEM 11/04/2020 08:54 [facility] TYPE: Emergency COMPLAINT: - SOB 09/07/2020 16:45 [facility] TYPE: Emergency COMPLAINT: - ALTERED LOC INPATIENT VISIT TRACKING (12 MO.) 11/04/2020 12:20 [facility] TYPE: Medical Surgical COMPLAINT: - HYPOXIA DIAGNOSES: - Other chronic pain - terminal carman (current) use of insulin - Type 2 diabetes mellitus with diabetic peripheral angiopathy without gangrene - Acute respiratory failure with hypoxia - Allergy status to other drugs, medicaments and biological substances - Essential (primary) hypertension - Other intermediate accountant (current) drug therapy - Hyperlipidemia, unspecified - Morbid (severe) obesity due to excess calories - terminal carman (current) use of insulin - Opioid dependence, uncomplicated - Pulmonary hypertension, unspecified - Other chronic pain - Hypothyroidism, unspecified - Acute respiratory failure, unspecified whether with hypoxia or hypercapnia - Unspecified bacterial pneumonia - Pulmonary hypertension, unspecified - Acute respiratory failure with hypoxia - Unspecified bacterial pneumonia - Obstructive sleep apnea (adult) (pediatric) - Essential (primary) hypertension - Type 2 diabetes mellitus with diabetic peripheral angiopathy without gangrene - Hyperlipidemia, unspecified - Epilepsy, unspecified, not intractable, without status epilepticus - Allergy status to other drugs, medicaments and biological substances - Opioid dependence, uncomplicated - Viral pneumonia, unspecified - Viral pneumonia, unspecified - Epilepsy, unspecified, not intractable, without status epilepticus - Hypothyroidism, unspecified - Morbid (severe) obesity due to excess calories - Obstructive sleep apnea (adult) (pediatric) - Other fpc (current) drug therapy 09/07/2020 21:08 [facility] TYPE: Critical Care COMPLAINT: - BLOOD LOSS ANEMIA DIAGNOSES: - Type 2 diabetes mellitus with diabetic chronic kidney disease - Dependence on wheelchair - snf (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 - Hypertensive chronic [...] 45.0-49.9, adult - Acute posthemorrhagic anemia - terminal carman (current) use of insulin - Unspecified open wound, left lower leg, subsequent encounter - snf (current) use of insulin - Hypothyroidism, unspecified - Other intermediate accountant (current) drug therapy - Chronic pain syndrome [...] not intractable, without status epilepticus - Other intermediate accountant (current) drug therapy - Type 2 diabetes mellitus with hyperglycemia - Type 2 diabetes mellitus with diabetic chronic kidney disease - Type 2 diabetes mellitus with diabetic polyneuropathy - Type 2 diabetes mellitus with unspecified diabetic retinopathy without macular edema - terminal carman (current) use of opiate analgesic - Allergy status to other drugs, medicaments and biological substances - Type 2 diabetes mellitus with unspecified diabetic retinopathy without macular edema - Other specified abnormal uterine and vaginal bleeding - snf (current) use of opiate analgesic - Other specified abnormal uterine and vaginal bleeding - Polyp of corpus uteri - terminal carman (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 - Chronic kidney disease, unspecified - Unspecified osteoarthritis, unspecified site - Chronic pain syndrome - Unspecified osteoarthritis, unspecified site - Hypothyroidism, unspecified [email or web address]
[2021-05-05] MEDS ORDERED: LOW DOSE ASPIRI81 MG PO (15:26)
[2021-05-05] MEDS ORDERED: HYDROCODON-ACE1 EA10 PO (15:27)
[2021-05-05] MEDS ORDERED: ARTHRITIS PAIN150 GM TD (15:29)
[2021-05-05] MEDS ORDERED: INSULIN AS100 UNIT/3 SUB-Q (15:31)
[2021-05-05] MEDS ORDERED: KEPPRA250 MG PO (15:33)
[2021-05-05] MEDS ORDERED: MICARDIS20 MG PO (15:35)
[2021-05-05] MEDS ORDERED: GLIPIZIDE10 MG PO (15:37)
[2021-05-05] MEDS ORDERED: OXYCODONE HCL5 MG PO (15:39)
== END 2021-05-04 13:22 | disposition home or self-care (01) ==
LOC: ED 08:28
DX: N95.0 Postmenopausal bleeding (principal); E11.40 Type 2 diabetes mellitus with diabetic neuropathy, unspecified; Z88.8 Allergy status to other drugs, medicaments and biological substances; Z79.899 Other long term (current) drug therapy; Z79.84 Long term (current) use of oral hypoglycemic drugs; Z79.4 Long term (current) use of insulin; Z20.822 Contact with and (suspected) exposure to COVID-19
CPT/HCPCS: 51702; 76830; 76856; 80053; 85025; 99284-25; A9270; U0003

== ENCOUNTER 2021-05-06 06:45 | Day surgery (SDC) | payer MEDICARE, OTHER ==
[~2021-05-06] VITALS: Ht 162.6 cm; Wt 130.0 kg
[~2021-05-06 06:45] MED LIST changes: +ARTHRITIS PAIN150 GM TD; +GLIPIZIDE10 MG PO; +INSULIN AS100 UNIT/3 SUB-Q; +KEPPRA250 MG PO; +LOW DOSE ASPIRI81 MG PO; +MICARDIS20 MG PO
[2021-05-06] MEDS ORDERED: METFORMIN HCL500 MG PO (07:13)
--- NOTE | 2021-05-06 10:47 | NUR ---
05/06/21 1047 SUHAS BRINK 1009-PATIENT ARRIVES TO PACU ON 6L MASK. PATIENT IS DROWSY. RATES PAIN 9/10 AND DENIES NAUSEA. RESP EVEN AND UNLABORED. 1015-PATIENT IS DROWSY. STATES "FEELS LIKE I HAVE BEEN PUNCHED IN THE GROIN". VO FROM STAFF AUDITOR FOR FENTANYL. RATES PAIN 9/10. 1016-PAIN MEDICATION GIVEN PER ERMAR. 1018-O2 TITRATED OFF. O2 SATS IN THE MID 90'S ON RA. RESP EVEN AND UNLABORED. 1025-PATIENT STATES SHE HAS BACK PAIN. HOVER MAT USED TO MOVE PATIENT TO LEFT SIDE WITH THE HELP OF 3 RN'S AND STAFF AUDITOR. 1028-PATIENT AWKAKE. PATIENT RATES PAIN 8.5/10. PAIN MEDICATION GIVEN PER EMAR. PATIENT GRIMACING HOLDING ON TO STOMACH. 1030-PATIENT HAS DECREAED BACK PAIN LAYING OF LEFT SIDE. RATES PAIN 7/10 FOR BACK PAIN. 1035-DR. JUNIOR AT BEDSIDE TALKING WITH PATIENT. 1043-PATIENT AWAKE. RATES PAIN 6/10. DENIES NAUSEA. RESP EVEN AND UNLABORED. O2 SATS IN THE MID TO UPPER 90'S ON RA.
--- NOTE | 2021-05-06 11:09 | NUR ---
PT ALERT, ORIENTED AND SUPPORTED BY HER HERMINIO. PT SEEMED GLAD TO SEE ME ALL QUESTIONS ASKED ANSWERED. PT HAS STRUGGLES WITH DECLINING HEALTH AND LOSS OF LIFESTYLE AND MOBILITY. PT REQUESTED PRAYER, AND WITH TEARS THANKED HER FOR STAYING BY HER SIDE AND ASKED ME TO CARE FOR HIM IF SOMETHING WERE TO HAPPEN TO HER. GAVE ASSURANCE AND COMFORT, WILL FOLLOW NEEDED
--- NOTE | 2021-05-06 11:18 | NUR ---
1105 PT BACK TO ROOM FROM PACU COMPLAINTS OF PAIN 10/01 PT GIVEN NORCO 5/325 X 2. PT EATING PUDDING AND DRINKING WATER, TOLERATES WELL. IS AT BEDSIDE, PT REPORTS HAVING CHRONIC BACK PAIN, AND IS IN PAIN ALL THE TIME. WARM BLANKET GIVEN.
--- NOTE | 2021-05-06 11:24 | NUR ---
BLOOD GLUCOSE 202 ON ARRIVAL BACK TO DAY SURGERY
--- NOTE | 2021-05-06 11:47 | NUR ---
PT REPORTS NO PAIN RELIEF WITH NORCO, BUT SHE STATES SHE HAS CHRONIC PAIN SO HER PAIN WILL NOT GET BETTER
--- NOTE | 2021-05-06 12:47 | NUR ---
1215 PT REPORTS FEELING BETTER, SHE STATES SHE FEELS DIZZY AND LIGHT HEADED. PT IS PALE VS ARE AT BASELINE. DR DUBOIS WAS CALLED HE ADVISED THAT LONG VS ARE AT BASELINE AT IF PT IS COMFORTABLE GOING HOME SHE CAN BE DISCHARGED. DISCHARGE INSTRUCTIONS GIVEN TO PT AND BOTH VOICED UNDERSTANDING.
--- NOTE | 2021-05-06 12:55 | NUR ---
200ML OF CLEAR YELLOW URINE IN DUKES BAG
--- NOTE | 2021-05-06 13:30 | NUR ---
LATE MALLORY 1215 PT HELPED INTO WHEELCHAIR VIA CHOLO WITH 3 NURSES ASSITING. PT TOLERATED WELL.
--- NOTE | 2021-05-09 08:32 | OR ---
[facility] [address], [place] [address] Signed DATE OF OPERATION: 05/06/2021 SURGEON: Harshil Levin MD The patient of Dr. Levin. PREOPERATIVE DIAGNOSES: Postmenopausal bleeding, endometrial mass, and morbid obesity. POSTOPERATIVE DIAGNOSES: Postmenopausal bleeding, endometrial mass, and morbid obesity. PROCEDURE: Hysteroscopy with D and C and removal of endometrial mass. HOG DRIVER: Dr. Harrell. ANESTHESIA: MAC. ESTIMATED BLOOD LOSS: 20 mL. SPECIMEN: Uterine mass and endometrial sample. DRAINS: Orozco to bladder. PACKING: None. FINDINGS: Normal vagina and normal cervix. Uterine cavity was slightly enlarged with 2 cm polypoid mass in the patient's left upper endometrial cavity and possible 2 cm submucosal fibroid in the patient's right lateral uterine cavity. The rest of the endometrium appeared normal in appearance. Right ostia was seen and appeared normal. Left ostia was not seen. Electronically Signed By: HARSHIL LEVIN MD 05/09/21 0832 PATIENT NAME: RONY CORREIA OPERATIVE REPORT DATE OF : 64 REPORT #: [id number] PHYSICIAN: HARSHIL LEVIN MD PCP: [facility] REPORT IS CONFIDENTIAL AND NOT TO BE RELEASED WITHOUT AUTHORIZATION [facility] [address], [place] [address] Signed COMPLICATION: Excess of fluid loss. DESCRIPTION OF PROCEDURE: The patient was brought to the operating room and placed in supine position. After adequate MAC was obtained, the patient was placed in dorsal lithotomy position, prepped and draped in usual sterile fashion. The patient already had an indwelling Orozco catheter. A weighted speculum was placed in the vagina and then Albaro placed in anterior vagina and the cervix identified and the anterior lip of the cervix grasped with an Allis clamp. Cervix was dilated with a small dilator. Noted to be partially open, so the cervix was not further dilated. The hysteroscope was placed in the cervical os and through the cervix into the uterine cavity under direct visualization. Sterile saline was used as distending medium. The above findings were noted. The fluid loss began to increase almost immediately and fluid was thought to be coming somewhat out of the cervix, so vagina was observed and fluid could be observed coming out. The MyoSure Reach was placed through the hysteroscope and under direct visualization, the above findings were noted and the polypoid area in the left upper endometrial cavity was removed and the part of the upper and lower endometrium was sampled. During this time, fluid loss continued and it was getting more difficult to visualize, so the hysteroscope was removed. A pursestring stitch of 0 Monocryl was placed in the cervix around through the stitch in the four quadrants, the hysteroscope placed back into the cervix under direct visualization and then the pursestring stitch tightened and help with the seal around the cervix to keep fluid in the uterus. The procedure was continued. Probable submucosal fibroid on the left wall was bulging out and this was taken down with the Myoosure Reach. Fluid loss continued to elevate and when the fluid loss reached 950 mL decided to stop the procedure. The cystoscope was removed. The suture snipped and then suture removed and at this point, a large amount of fluid came from the uterus, there was also noted to be fluid on the floor and fluid loss as measured decreased so that the final fluid loss was thought to be 650 mL. There was no bleeding and most of the fibroid and all of the endometrial polyp was removed and the fluid loss was becoming difficult to measure, so it was decided to terminate the procedure. All instruments were removed from the vagina. The patient tolerated the procedure well, went to recovery room in good condition. The intrauterine pressure per monitor was normal at 80 mmHg. The patient tolerated the procedure well, went to recovery room in good condition. Sponge and instrument counts were correct at the end of the procedure. The specimen was sent to pathology for identification. Harshil Levin MD Electronically Signed By: HARSHIL LEVIN MD 05/09/21 0832 PATIENT NAME: RONY CORREIA OPERATIVE REPORT DATE OF : 64 REPORT #: [id number] PHYSICIAN: HARSHIL LEVIN MD PCP: [facility] REPORT IS CONFIDENTIAL AND NOT TO BE RELEASED WITHOUT AUTHORIZATION [facility] [address] [place] [address] Signed JUAN/LYNDA /[id number] Copies: ~ Electronically Signed By: HARSHIL LEVIN MD 05/09/21 0832 PATIENT NAME: RONY CORREIA KANDI OPERATIVE REPORT DATE OF : 64 REPORT #: [id number] PHYSICIAN: HARSHIL LEVIN MD PCP: [facility] REPORT IS CONFIDENTIAL AND NOT TO BE RELEASED WITHOUT AUTHORIZATION
--- NOTE | 2021-05-13 16:19 | PATH ---
[facility] [address] [place], [place] [address] Signed SPECIMEN(S): A UTERINE MASS SPECIMEN SOURCE: A. UTERINE MASS CLINICAL HISTORY: Postmenopausal bleeding, endometrial mass. Hysteroscopy with removal of endometrial mass. 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 - Fragments of benign endometrial polyp. - Fragment of leiomyoma(s). COMMENT: Histologic HE stained sections demonstrate foci of crowded endometrial glands with minimal, thread-like intervening stroma. The epithelium lining these crowded glands shows minimal cytologic atypia with metaplastic changes but mitoses are readily identified. Definitive gland cribriforming is not seen. The findings are interpreted as endometrial intraepithelial neoplasia, with areas concerning for/bordering low-grade endometrioid adenocarcinoma. Definitive classification deferred to permanent resection specimen. As part of [facility] Quality Improvement Program, this case was reviewed by another member of our pathology staff (ELADIA). NAL:ELADIA:cml:C1NR MICROSCOPIC EXAMINATION: Histologic sections of all submitted blocks are examined by light microscopy. These findings, together with the gross examination, support the pathologic diagnosis. GROSS DESCRIPTION: The specimen, labeled "RB, uterine mass," is received in formalin and consists of irregular shaped, pink-de dios, membranous tissue fragments that aggregate measure 4.2 x 3.2 x 0.4 cm. Specimen is entirely submitted in cassettes (A1-A3). JS (under the direct supervision of a pathologist) The Gross Description was prepared using a voice recognition system. The report PATIENT NAME: RONY CORREIA PATHOLOGY DATE OF : 64 REPORT #: [id number] PHYSICIAN: BRIANNA FOSTER PCP: [facility] REPORT IS CONFIDENTIAL AND NOT TO BE RELEASED WITHOUT AUTHORIZATION [facility] [address] [address] Signed was reviewed for accuracy; however, sound-alike word errors, addition and/or deletions may occur. If there is any question about this report, please contact Client Services. PERFORMING LABORATORY: The technical component was [place] [address] (Theater Teacher: Donna Bush MD; CLIA# [id number]). Professional interpretation was performed by [facility], [address] [address] (CLIA# [id number]). Diagnostician: Irma Kothari MD Pathologist Electronically Signed 05/13/2021 Copies: ~ PATIENT NAME: RONY CORREIA PATHOLOGY DATE OF : 64 REPORT #: [id number] PHYSICIAN: [facility] PCP: [facility] REPORT IS CONFIDENTIAL AND NOT TO BE RELEASED WITHOUT AUTHORIZATION
== END 2021-05-06 12:35 | disposition home or self-care (01) ==
LOC: OPS 06:45 → DS 06:45 → OPS 08:45 → DS 08:45 → OPS 12:35
PROVIDERS: ATTEND General Practice
PROC: 0UB98ZZ Excision of Uterus, Via Natural or Artificial Opening Endoscopic (ICD-10-PCS; principal; 2021-05-06 08:45)
DX: N85.02 Endometrial intraepithelial neoplasia [EIN] (principal); N84.0 Polyp of corpus uteri; D25.9 Leiomyoma of uterus, unspecified; I10 Essential (primary) hypertension; E66.01 Morbid (severe) obesity due to excess calories; E11.9 Type 2 diabetes mellitus without complications; E03.9 Hypothyroidism, unspecified; Z79.4 Long term (current) use of insulin; Z88.8 Allergy status to other drugs, medicaments and biological substances
CPT/HCPCS: 00952; 88305; J0131; J1100; J1644; J1885; J2001; J2250; J2405; J2704; J3010; J7121

== ENCOUNTER 2023-05-28 20:21 | Emergency (ER) | payer MEDICARE, OTHER ==
[~2023-05-28] VITALS: Ht 162.6 cm; Wt 129.7 kg
[~2023-05-28 20:21] MED LIST changes: +METFORMIN HCL500 MG PO
[2023-05-28 20:59] LABS: BILIRUBIN, URINE POSITIVE (negative); BLOOD/HGB, URINE LARGE (Negative); KETONE, URINE TRACE (Negative); LEUK ESTERASE, URINE MODERATE (negative); NITRITE, URINE POSITIVE (negative); PH, URINE 6.5 (5-7)
[2023-05-28 21:06] LABS: WHITE BLOOD CELLS, URINE 21-40 /HPF (0-5)
[2023-05-28 21:07] LABS: BACTERIA, URINE 3+ /hpf (negative); CASTS, URINE NONE SEEN \\lpf; CRYSTALS, URINE NONE SEEN (0-1+); EPITHELIAL CELLS, URINE NS /lpf (0-1+)
[2023-05-28 21:08] LABS: COLLECTION TYPE, URINE CLEAN CATCH; REFLEX CULTURE, URINE Yes (No)
[2023-05-28] MEDS ORDERED: CEFDINIR300 MG PO (22:30)
[2023-05-28 22:42] VITALS: BP 94/52
== END 2023-05-28 22:40 | disposition home or self-care (01) ==
LOC: ED 20:21
PROVIDERS: Family Medicine
DX: T83.098A Other mechanical complication of other urinary catheter, initial encounter (principal); N39.0 Urinary tract infection, site not specified; E11.40 Type 2 diabetes mellitus with diabetic neuropathy, unspecified; Z88.8 Allergy status to other drugs, medicaments and biological substances; Z79.890 Hormone replacement therapy; Z79.899 Other long term (current) drug therapy; Z79.51 Long term (current) use of inhaled steroids; Z79.4 Long term (current) use of insulin; Z79.84 Long term (current) use of oral hypoglycemic drugs
CPT/HCPCS: 74018; 81001

== ENCOUNTER 2024-02-03 19:46 | Emergency (ER) | payer MEDICARE, OTHER ==
[~2024-02-03] VITALS: Ht 162.6 cm; Wt 126.0 kg
[~2024-02-03 19:46] MED LIST changes: +ACID CONTROLLER20 MG PO; -ARTHRITIS PAIN150 GM TD; +ARTHRITIS PAIN150 GM TOP; +AZO URINARY P99.5 MG PO; +BACTRIM DS TAB1 EACH PO; +CEFDINIR300 MG PO; +CEFUROXIME500 MG PO; +CERAVE SA CREA340 GM TOP; +DULOXETINE HCL30 MG PO; +GABAPENTIN300 MG PO; -HUMALOG100 UNIT/2 SUB-Q; +LEVOFLOXACIN750 MG PO; +LIDODERM1 EACH TD; -LIDODERM1 EACH TOP; +LOPERAMIDE2 MG PO; -METHOCARBAMOL500 MG PO; -NEURONTIN100 MG PO; +NEURONTIN400 MG PO; +NOVOLIN 70100 UNIT/2 SUB-Q; +OZEMPIC0.25 MG/02 SUB-Q; +PROMETRIUM100 MG PO; +PROMETRIUM200 MG PO; +PROPRANOLOL HCL80 M1 PO; +PYRIDIUM200 MG PO; +TRULICITY1.5 MG/0.5 SUB-Q
[2024-02-03] MEDS ORDERED: LIDOCAINE 2% VISCOUS 6 ML SYR TOP ONE (20:30)
[2024-02-03] MEDS ORDERED: diphenhydrAMINE HCL 50 MG/ML VIAL IM ONE (20:30)
[2024-02-03] MEDS ORDERED: OLANZapine 10 MG VIAL IM ONE (20:30)
[2024-02-03 21:00] VITALS: BP 110/62
== END 2024-02-03 21:00 | disposition home or self-care (01) ==
LOC: ED 19:46
DX: T83.021A Displacement of indwelling urethral catheter, initial encounter (principal); E11.42 Type 2 diabetes mellitus with diabetic polyneuropathy; G40.409 Other generalized epilepsy and epileptic syndromes, not intractable, without status epilepticus; E66.01 Morbid (severe) obesity due to excess calories; Z68.42 Body mass index [BMI] 45.0-49.9, adult; Z88.8 Allergy status to other drugs, medicaments and biological substances; Z79.890 Hormone replacement therapy; Z79.4 Long term (current) use of insulin; Z79.85 Long-term (current) use of injectable non-insulin antidiabetic drugs; Z79.84 Long term (current) use of oral hypoglycemic drugs; Z79.899 Other long term (current) drug therapy
CPT/HCPCS: 51702; 99283-25

== ENCOUNTER 2024-02-06 19:26 | Observation (INO) | payer MEDICARE, OTHER ==
[~2024-02-06] VITALS: Ht 162.6 cm; Wt 120.6 kg
[2024-02-06] MEDS ORDERED: DEXTROSE 50% 50 ML SYR ONE (19:27)
[2024-02-06] MEDS ORDERED: DEXTROSE 50% 50 ML SYR IV ONE (19:45)
[2024-02-06] MEDS ORDERED: DEXTROSE 5% - LACTATED RINGERS 1,000 ML IV SCH (19:45)
[2024-02-06 19:52] LABS: BASOPHILS 0.4 % (0-2); EOSINOPHILS 4.2 % (0-6); HEMATOCRIT 29.5 % (35.0-50.0); HEMOGLOBIN 9.8 g/dL (12.0-18.0); LYMPHOCYTES 17.7 % (24-44); MONOCYTES 5.3 % (0-12); NEUTROPHILS 72.4 % (39-80); PLATELET COUNT 183 K/uL (140-440); RBC 2.87 M/ul (4.3-5.7)
[2024-02-06 20:15] LABS: ALBUMIN 1.7 g/dL (3.4-5.0); ALBUMIN/GLOBULIN RATIO 0.41 (1.1-2.4); ANION GAP 13.6 (7-21); BILIRUBIN, TOTAL 0.5 ng/dL (0.2-1.0); BUN/CREATININE RATIO 10.68 (6.0-28.6); CALCIUM 7.9 mg/dL (8.5-10.1); CREATININE, SERUM 1.31 mg/dL (0.55-1.02); MAGNESIUM 1.1 mg/dL (1.8-2.4); POTASSIUM 3.6 mmol/L (3.5-5.1); PROTEIN, TOTAL 5.8 g/dL (6.4-8.2)
[2024-02-06] MEDS ORDERED: ENOXAPARIN SODIUM 40 MG/0.4 ML SYR SUB-Q SCH (20:28)
[2024-02-06] MEDS ORDERED: ACETAMINOPHEN 325 MG TAB PO PRN (20:30)
[2024-02-06] MEDS ORDERED: GLUCAGON,HUMAN RECOMBINANT 1 MG/ML VIAL SUB-Q PRN (20:30)
[2024-02-06] MEDS ORDERED: ondansetron HCL 4 MG/2 ML VIAL IV PRN (20:30)
[2024-02-06] MEDS ORDERED: IBLOOD GLUCOSE TEST STRIP 1 EA TEST XX PRN (20:30)
[2024-02-06] MEDS ORDERED: DEXTROSE 5% 1,000 ML IV PRN (20:30)
[2024-02-06] MEDS ORDERED: PROCHLORPERAZINE EDISYLATE 10 MG/2 ML VIAL IV PRN (20:30)
[2024-02-06] MEDS ORDERED: DEXTROSE 50% 50 ML SYR IV PRN ×2 (20:30)
[2024-02-06] MEDS ORDERED: INSULIN LISPRO 100 UNIT/ML ML SUB-Q SCH (21:00)
[2024-02-06] MEDS ORDERED: IBLOOD GLUCOSE TEST STRIP 1 EA TEST VI SCH ×2 (21:00)
--- NOTE | 2024-02-06 22:02 | NUR ---
pt ARRIVED TO MS FLOOR FROM THE ED, PRIMARY RN ANGELA IN ROOM AND RECEIVING BEDSIDE REPORT. SAROJ IN ROOM, pt ORIENTED TO ROOM AND POC. pt HAS EYES CLOSED, BUT ANSWERS QUESTIONS APPROPRIATELY, REPORTS BEING COLD AND WANTING WARM BLANKETS-BLANKETS PROVIDED. VSS, pt ON RA. RR EVEN AND UNLABORED.
[2024-02-06 22:10] VITALS: BP 154/99
--- NOTE | 2024-02-06 22:10 | NUR ---
PT TO FLOOR VIA STRETCHER WITH ED RN. BEDSIDE REPORT RECEIVED. PT ALERT AND ORIENTED. DROWSY. RESPONDS TO VERBAL STIMULI. HOVERMATT AND 4PA SLIDE TRANSFER TO BED. VS AND WEIGHT OBTAINED. PT INCONTINENT OF SMALL AMOUNT LOOSE BM. INEZ CARE DONE. EXCORIATIONS NOTED ON BACK OF BOTH THIGHS AND IN GLUTEAL FOLDS. BARRIER CREAM APPLIED. PT WITH CHRONIC DUKES. DUKES CARE DONE. PILLOW CASES PLACED UNDER ABD FOLDS. 2PA TO REPOSITION IN BED. WARM BLANKETS PROVIDED. MEDIA RELATIONS MANAGER AND MD IN ROOM FOR ADMISSION.
--- NOTE | 2024-02-06 22:50 | NUR ---
pt awake and resting quietly in bed, iv maintenance fluids infusing at 200mls/hr-same as when pt arrived from ed. dr stone in pt room and gave initial verbal orders to: complete q1h accuchecks for 4 hours and once sugars are above 100 staff can titrate iv fluids down from 200 to 125mls/hr. call md if blood sugar reaches 150. next accucheck due at 2315. md then discussed acuity with this rn and house mover-decision then made to transfer pt to ccu for closer observation. information above reported to new primary rn, ccu rn sandeep upon pt transferring to ccu room #127. per nicole hopkins, she discussed poc with md and received updated orders regarding blood sugar management.
[2024-02-06] MEDS ORDERED: FAMOTIDINE 20 MG TAB PO SCH (23:02)
[2024-02-06] MEDS ORDERED: levETIRAcetam 500 MG TAB PO SCH (23:03)
[2024-02-06] MEDS ORDERED: PROPRANOLOL HCL 20 MG TAB PO SCH (23:06)
[2024-02-06] MEDS ORDERED: GABAPENTIN 400 MG CAP PO PRN (23:15)
[2024-02-06] MEDS ORDERED: methocarbamoL 500 MG TABLET PO PRN (23:15)
[2024-02-06] MEDS ORDERED: LIDOCAINE HCL 4% 1 EACH PATCH TD PRN (23:15)
--- NOTE | 2024-02-06 23:15 | NUR ---
ORDERS RECEIVED TO TX PT TO CCU. REPORT GIVEN TO CCU RN. PT TX TO CCU APPOX 2315 WITH PERSONAL BELONGINGS. ACCOMPANIED PT TO ROOM 127.
[2024-02-06 23:30] VITALS: BP 142/75
[2024-02-07] VITALS (8 sets, daily range): BP systolic 133–156; BP diastolic 56–77
--- NOTE | 2024-02-07 00:42 | NUR ---
CALLED TO REPORTS PATIENT [facility] LAB FROM 1930 1.1, NEW ORDER TO BE PLACED, UPDATED ON PATIENT BLOOD SUGAR CHECKS.
[2024-02-07] MEDS ORDERED: MAGNESIUM SULFATE 2 GM/50 ML BAG IV ONE ×2 (00:45→06:45)
[2024-02-07] MEDS ORDERED: HYDROCODONE/ACETA 5/325 TAB PO SCH (02:00)
--- NOTE | 2024-02-07 02:00 | NUR ---
URINE SENT FOR UA THAT WAS ORDERED IN ED, PATIENT ALERT AND ORIENTED, SHE REPORTS FEELING MUCH BETTER AT THIS TIME. HER LAST BLOOD SUGAR WAS 155, D5LR TITRATED PER ORDER TO THIS RN, NOW INFUSING AT 75ML/HOUR.
[2024-02-07 02:08] LABS: BILIRUBIN, URINE NEGATIVE (negative); BLOOD/HGB, URINE NEGATIVE (Negative); KETONE, URINE NEGATIVE (Negative); LEUK ESTERASE, URINE LARGE (negative); NITRITE, URINE POSITIVE (negative)
[2024-02-07 02:14] LABS: RED BLOOD CELLS, URINE 0-1 /hpf (0-5); WHITE BLOOD CELLS, URINE >50 /HPF (0-5)
[2024-02-07 02:15] LABS: BACTERIA, URINE 4+ /hpf (negative); CASTS, URINE NONE SEEN \\lpf; COLLECTION TYPE, URINE CLEAN CATCH; CRYSTALS, URINE NONE SEEN (0-1+); REFLEX CULTURE, URINE Yes (No)
--- NOTE | 2024-02-07 03:47 | NUR ---
PATIENT ALERT AND ORIENTED, THIS RN INTO PLACE NEW IVF D5LR, PATIENT ASKED FOR FRESH WARM BLANKETS, THESE ARE PROVIDED.
[2024-02-07 06:12] LABS: BASOPHILS 0.5 % (0-2); EOSINOPHILS 2.3 % (0-6); HEMATOCRIT 28.9 % (35.0-50.0); HEMOGLOBIN 9.6 g/dL (12.0-18.0); MCHC 33.1 g/dl (30-36); MCV 102.7 fl (81-99); MONOCYTES 4.9 % (0-12); NEUTROPHILS 75.3 % (39-80); PLATELET COUNT 186 K/uL (140-440); RBC 2.82 M/ul (4.3-5.7); RDW 14.9 (10.5-15.0)
[2024-02-07 06:22] LABS: ANION GAP 12.2 (7-21); BUN/CREATININE RATIO 9.83 (6.0-28.6); CALCIUM 8.4 mg/dL (8.5-10.1); CREATININE, SERUM 1.22 mg/dL (0.55-1.02); MAGNESIUM 1.4 mg/dL (1.8-2.4); POTASSIUM 4.2 mmol/L (3.5-5.1)
[2024-02-07] MEDS ORDERED: LEVOTHYROXINE SODIUM 50 MCG TAB PO SCH (07:00)
--- NOTE | 2024-02-07 07:13 | NUR ---
UR CLINICAL REVIEW: 2 MN FOR VERSALUS-MEETS OBS CRITERIA FOR HYPOGLYCEMIA MEDICARE OBS 02/06/24 @ 1927 ORDER MATCHES REG NO AUTH REQUIRED PER MEDICARE GUIDELINES DISCHARGE TODAY IF STABLE
--- NOTE | 2024-02-07 09:36 | NUR ---
VISITED DURING SPIRITUAL CARE ROUNDS. PT APPEARED TO BE SLEEPING. DID NOT DISTURB. PROVIDED PRAYER.
--- NOTE | 2024-02-07 10:00 | NUR ---
DR. BOYKIN HERE TO SEE PATIENT. POC IS FOR DISCHARGE TODAY. PATIENT IS AWARE.
--- NOTE | 2024-02-07 10:21 | NUR ---
MED REC COMPLETE
--- NOTE | 2024-02-07 10:42 | NUR ---
SPOUSE CALLED WITH FOLLOW-UP APPOINTMENT FOR DC. APPOINTMENT MONDAY, FEB 12, 2024 AT 1:15 PM. APPOINTMENT TIME IN DC INSTRUCTIONS.
--- NOTE | 2024-02-07 11:00 | NUR ---
Spoke with Norbert. She is speaking with Dr. Miranda and plan is for pt to dc today and see her PCP as soon as possible for medication adjustment. Pts A1C is now 4.7. Pt would like her spouse to make the fu appts and would also like to start PT at the therapy department at [facility]. Dr Miranda updated and will add to his chart. Pt cont. to live in housing at the [facility]. She will dc to home today. She denies needs for more DME. Spouse called and will be in around 3 pm to get pt and take her home in their wc accessable van. Spouse called and scheduled an appt Monday with Elizabeth Ibarra at [facility].
--- NOTE | 2024-02-07 11:11 | NUR ---
MONITOR AND OXIMETER DC'D PER PATIENT REQUEST, SHE WILL BE DISCHARGED TODAY. THIS DONE.
[2024-02-07] MEDS ORDERED: PHARMACY RENAL DOSE ADJUSTMENT 1 DOSE MISC PO SCH (12:00)
--- NOTE | 2024-02-07 14:10 | NUR ---
GABAPENTIN AND NORCO GIVEN. PATIENT HAS BEEN RESTFUL. PLAN TO DISCHARGE WHEN HER GETS OFF WORK.
--- NOTE | 2024-02-07 14:46 | NUR ---
Chart faxed to Gi at [facility] per pt request.
--- NOTE | 2024-02-07 15:00 | NUR ---
PATIENT IN ROOM. IV SITE DC'D. DUKES CATH EMPTIED FOR 300 ML FOUL SMELLING ANA LUISA URINE.
--- NOTE | 2024-02-07 15:40 | NUR ---
OVERHEAD LIFT USED TO TRANSFER PATIENT TO HER OWN ELECTRIC W/C. TOLERATED WELL.
--- NOTE | 2024-02-07 16:10 | NUR ---
PATIENT USED HER ELECTRIC W/C AT DISCHARGE TO HOME. RN WALKED OUT WITH PATIENT.
[2024-02-07] MEDS ORDERED: LIDOCAINE PATCH REMOVAL 1 EA TD SCH (21:00)
== END 2024-02-07 16:10 | disposition home or self-care (01) ==
LOC: ED 19:26 → MS 19:27 → CCU 23:08
PROVIDERS: Internal Medicine; ADMIT Student in an Organized Health Care Education/Training Program; ATTEND Student in an Organized Health Care Education/Training Program
DX: E11.649 Type 2 diabetes mellitus with hypoglycemia without coma (principal); E11.40 Type 2 diabetes mellitus with diabetic neuropathy, unspecified; E03.9 Hypothyroidism, unspecified; F41.1 Generalized anxiety disorder; K21.9 Gastro-esophageal reflux disease without esophagitis; G89.29 Other chronic pain; Z79.890 Hormone replacement therapy; Z79.4 Long term (current) use of insulin; Z79.899 Other long term (current) drug therapy; Z88.8 Allergy status to other drugs, medicaments and biological substances; Z96.0 Presence of urogenital implants
CPT/HCPCS: 36415; 80048; 80053; 81001; 83036; 83735; 83880; 84484; 85025; 87077; 87088; 87186; 96365; 96366; 96372; 96374; 99285-25; G0378; J1650; J3475; J7121

== ENCOUNTER 2024-06-12 23:30 | Emergency (ER) | payer MEDICARE, OTHER ==
[~2024-06-12] VITALS: Ht 162.6 cm; Wt 109.8 kg
[2024-06-12] MEDS ORDERED: LIDOCAINE 2% VISCOUS 6 ML SYR TOP ONE (23:45)
[2024-06-13 00:11] LABS: BILIRUBIN, URINE NEGATIVE (negative); BLOOD/HGB, URINE LARGE (Negative); KETONE, URINE NEGATIVE (Negative); LEUK ESTERASE, URINE MODERATE (negative); NITRITE, URINE POSITIVE (negative); PH, URINE 6.5 (5-7)
[2024-06-13 00:15] LABS: EPITHELIAL CELLS, URINE SQUAMOUS 1+ /lpf (0-1+); RED BLOOD CELLS, URINE >50 /hpf (0-5)
[2024-06-13 00:17] LABS: BACTERIA, URINE 4+ /hpf (negative); CASTS, URINE NONE SEEN \\lpf; COLLECTION TYPE, URINE CLEAN CATCH; CRYSTALS, URINE NONE SEEN (0-1+); REFLEX CULTURE, URINE Yes (No)
[2024-06-13] MEDS ORDERED: MACROBID 100 M100 MG PO (00:23)
[2024-06-13] MEDS ORDERED: NITROFURANTOIN MONOHYD MACROCR 100 MG HOME.PACK PO ONE (00:30)
[2024-06-13 00:37] VITALS: BP 144/73
== END 2024-06-13 00:38 | disposition home or self-care (01) ==
LOC: ED 23:30
PROVIDERS: Family Medicine
DX: T83.021A Displacement of indwelling urethral catheter, initial encounter (principal); Y84.6 Urinary catheterization as the cause of abnormal reaction of the patient, or of later complication, without mention of misadventure at the time of the procedure; N39.0 Urinary tract infection, site not specified; E11.40 Type 2 diabetes mellitus with diabetic neuropathy, unspecified; Z79.890 Hormone replacement therapy; Z79.84 Long term (current) use of oral hypoglycemic drugs; Z79.899 Other long term (current) drug therapy; Z88.8 Allergy status to other drugs, medicaments and biological substances
CPT/HCPCS: 51702; 81001; 87088; 99283

== ENCOUNTER 2024-07-23 07:04 | Emergency (ER) | payer MEDICARE, OTHER ==
[~2024-07-23] VITALS: Ht 162.6 cm; Wt 113.0 kg
[~2024-07-23 07:04] MED LIST changes: +MACROBID 100 M100 MG PO
[2024-07-23 07:51] LABS: BILIRUBIN, URINE NEGATIVE (negative); BLOOD/HGB, URINE LARGE (Negative); KETONE, URINE NEGATIVE (Negative); LEUK ESTERASE, URINE SMALL (negative); NITRITE, URINE POSITIVE (negative)
[2024-07-23 07:58] LABS: BACTERIA, URINE 3+ /hpf (negative); CRYSTALS, URINE NONE SEEN (0-1+); EPITHELIAL CELLS, URINE SQUAMOUS 1+ /lpf (0-1+); RED BLOOD CELLS, URINE 21-40 /hpf (0-5)
[2024-07-23 07:59] LABS: CASTS, URINE NONE SEEN \\lpf; COLLECTION TYPE, URINE CLEAN CATCH; REFLEX CULTURE, URINE Yes (No)
[2024-07-23] MEDS ORDERED: CEPHALEXIN500 M1 PO (08:54)
[2024-07-23] MEDS ORDERED: CEPHALEXIN MONOHYDRATE 500 MG CAP PO ONE (09:00)
[2024-07-23 10:29] VITALS: BP 129/64
== END 2024-07-23 10:29 | disposition home or self-care (01) ==
LOC: ED 07:04
PROVIDERS: Emergency Medicine
DX: N39.0 Urinary tract infection, site not specified (principal); E11.40 Type 2 diabetes mellitus with diabetic neuropathy, unspecified; Z96.0 Presence of urogenital implants; Z99.3 Dependence on wheelchair; Z88.1 Allergy status to other antibiotic agents; Z88.8 Allergy status to other drugs, medicaments and biological substances; Z79.890 Hormone replacement therapy; Z79.84 Long term (current) use of oral hypoglycemic drugs; Z79.85 Long-term (current) use of injectable non-insulin antidiabetic drugs; Z79.899 Other long term (current) drug therapy
CPT/HCPCS: 51702; 81001; 87088; 99283; A9270

== ENCOUNTER 2024-09-04 15:03 | Inpatient (IN) | payer MEDICARE, OTHER ==
[~2024-09-04] VITALS: Ht 162.6 cm; Wt 62.5 kg
[2024-09-04] VITALS (7 sets, daily range): BP systolic 95–113; BP diastolic 51–70
[~2024-09-04 15:03] MED LIST changes: +CEPHALEXIN500 M1 PO; -NEURONTIN400 MG PO; -TRULICITY1.5 MG/0.5 SUB-Q; +TRULICITY4.5 MG/0.5 SUB-Q
[2024-09-04] MEDS ORDERED: ACETAMINOPHEN 500 MG TAB PO ONE (15:30)
[2024-09-04] MEDS ORDERED: CEFTRIAXONE SODIUM 2 GM in SODIUM CHLORIDE 0.9% 100 ML IV SCH (15:30)
[2024-09-04 15:40] LABS: BASOPHILS 0.1 % (0-2); EOSINOPHILS 0.9 % (0-6); HEMATOCRIT 30.5 % (35.0-50.0); HEMOGLOBIN 9.9 g/dL (12.0-18.0); LYMPHOCYTES 23.4 % (24-44); MCH 35.4 (27-36); MCHC 32.5 g/dl (30-36); MCV 108.7 fl (81-99); MONOCYTES 3.7 % (0-12); NEUTROPHILS 71.9 % (39-80); PLATELET COUNT 124 K/uL (140-440); RBC 2.81 M/ul (4.3-5.7); RDW 15.2 (10.5-15.0)
[2024-09-04] MEDS ORDERED: SODIUM CHLORIDE 0.9% 1,000 ML IV PRN ×2 (15:45→17:45)
[2024-09-04] MEDS ORDERED: CEFTRIAXONE SODIUM 2 GM in SODIUM CHLORIDE 0.9% 100 ML IV ONE (16:00)
[2024-09-04 16:02] LABS: LACTIC ACID, BLOOD 6.3 mmol/L (0.4-2.0)
[2024-09-04 16:04] LABS: ALBUMIN 2.1 g/dL (3.4-5.0); ALBUMIN/GLOBULIN RATIO 0.48 (1.1-2.4); ANION GAP 15.5 (7-21); BILIRUBIN, TOTAL 1.2 mg/dL (0.2-1.0); BUN/CREATININE RATIO 11.56 (6.0-28.6); CALCIUM 9.4 mg/dL (8.5-10.1); CREATININE, SERUM 2.68 mg/dL (0.55-1.02); POTASSIUM 4.5 mmol/L (3.5-5.1); PROTEIN, TOTAL 6.5 g/dL (6.4-8.2)
[2024-09-04] MEDS ORDERED: ACETAMINOPHEN 500 MG TAB ONE (16:10)
[2024-09-04 16:12] LABS: BILIRUBIN, URINE NEGATIVE (negative); BLOOD/HGB, URINE TRACE-I (Negative); KETONE, URINE NEGATIVE (Negative); LEUK ESTERASE, URINE MODERATE (negative); NITRITE, URINE NEGATIVE (negative); PH, URINE 7.5 (5-7)
[2024-09-04 16:17] LABS: BACTERIA, URINE 4+ /hpf (negative); CASTS, URINE NONE SEEN \\lpf; COLLECTION TYPE, URINE CLEAN CATCH; CRYSTALS, URINE NONE SEEN (0-1+); EPITHELIAL CELLS, URINE 0 /lpf (0-1+); RED BLOOD CELLS, URINE 0-1 /hpf (0-5); REFLEX CULTURE, URINE Yes (No); WHITE BLOOD CELLS, URINE >50 /HPF (0-5)
[2024-09-04] MEDS ORDERED: NOREPINEPHRINE BITARTRATE 250 ML IV SCH (17:30)
[2024-09-04 17:41] LABS: LACTIC ACID, BLOOD 7.2 mmol/L (0.4-2.0)
[2024-09-04] MEDS ORDERED: DEXTROSE 50% 50 ML SYR IV PRN ×2 (18:15)
[2024-09-04] MEDS ORDERED: GLUCAGON,HUMAN RECOMBINANT 1 MG/ML VIAL SUB-Q PRN (18:15)
[2024-09-04] MEDS ORDERED: LACTATED RINGER'S 1,000 ML IV SCH (18:15)
[2024-09-04] MEDS ORDERED: DEXTROSE 5% 1,000 ML IV PRN (18:15)
[2024-09-04] MEDS ORDERED: IBLOOD GLUCOSE TEST STRIP 1 EA TEST XX PRN (18:15)
[2024-09-04] MEDS ORDERED: ondansetron HCL 4 MG/2 ML VIAL IV PRN (18:15)
[2024-09-04] MEDS ORDERED: ACETAMINOPHEN 325 MG TAB PO PRN (18:15)
[2024-09-04] MEDS ORDERED: IBLOOD GLUCOSE TEST STRIP 1 EA TEST VI SCH (21:00)
[2024-09-04] MEDS ORDERED: HEParin SOD (PORCINE) 5,000 UNIT/ML SDV SUB-Q SCH (21:00)
[2024-09-04] MEDS ORDERED: MELATONIN 3 MG TAB PO PRN (21:00)
[2024-09-04] MEDS ORDERED: INSULIN LISPRO 100 UNIT/ML ML SUB-Q SCH (21:00)
[2024-09-04] MEDS ORDERED: FAMOTIDINE 20 MG TAB PO SCH (21:01)
[2024-09-04] MEDS ORDERED: HYDROCORTISONE SOD SUCCINATE 100 MG/2 ML VIAL IV SCH (21:01)
[2024-09-04] MEDS ORDERED: GABAPENTIN 300 MG CAP PO SCH (21:01)
[2024-09-04] MEDS ORDERED: levETIRAcetam 500 MG TAB PO SCH (21:02)
[2024-09-04] MEDS ORDERED: HYDROCODONE/ACETA 7.5/325 TAB PO PRN (21:15)
[2024-09-04 21:19] LABS: CHOLESTEROL/HDL RATIO 2.5
[2024-09-04] MEDS ORDERED: PROPRANOLOL HCL 20 MG TAB PO ONE (22:00)
[2024-09-05] VITALS (35 sets, daily range): BP systolic 92–121; BP diastolic 43–76
[2024-09-05 05:55] LABS: HEMATOCRIT 28.1 % (35.0-50.0); MCH 34.7 (27-36); MCHC 32.1 g/dl (30-36); MCV 108.1 fl (81-99); PLATELET COUNT 125 K/uL (140-440); RDW 15.3 (10.5-15.0)
[2024-09-05 06:01] LABS: ALBUMIN 1.9 g/dL (3.4-5.0); ALBUMIN/GLOBULIN RATIO 0.44 (1.1-2.4); ANION GAP 15.9 (7-21); BILIRUBIN, TOTAL 0.8 mg/dL (0.2-1.0); BUN/CREATININE RATIO 12.17 (6.0-28.6); CALCIUM 8.7 mg/dL (8.5-10.1); CREATININE, SERUM 2.71 mg/dL (0.55-1.02); MAGNESIUM 1.7 mg/dL (1.8-2.4); PHOSPHORUS, INORGANIC 5.4 mg/dL (2.5-4.9); POTASSIUM 4.9 mmol/L (3.5-5.1); PROTEIN, TOTAL 6.2 g/dL (6.4-8.2)
[2024-09-05 06:09] LABS: BANDS, MANUAL DIFF 31; LYMPHOCYTES, MANUAL DIFF 5; MONOCYTES, MANUAL DIFF 5; NEUTROPHILS, MANUAL DIFF 59
[2024-09-05] MEDS ORDERED: LEVOTHYROXINE SODIUM 50 MCG TAB PO SCH (07:00)
[2024-09-05] MEDS ORDERED: PROPRANOLOL HCL 20 MG TAB PO SCH (09:00)
[2024-09-05] MEDS ORDERED: INSULIN GLARGINE-YFGN 100 UNIT/ML ML SUB-Q SCH (09:00)
[2024-09-05] MEDS ORDERED: MAGNESIUM SULFATE 2 GM/50 ML BAG IV ONE (09:00)
[2024-09-05] MEDS ORDERED: CEFTRIAXONE SODIUM 2 GM in SODIUM CHLORIDE 0.9% 100 ML IV SCH (09:00)
[2024-09-05] MEDS ORDERED: FLUDROCORTISONE ACETATE 0.1 MG TAB PO SCH (09:00)
[2024-09-05] MEDS ORDERED: NOREPINEPHRINE BITARTRATE 0 ML IV SCH (09:00)
[2024-09-05] MEDS ORDERED: LIDOCAINE HCL 4% 1 EACH PATCH TD SCH (09:00)
[2024-09-05] MEDS ORDERED: NOREPINEPHRINE BITARTRATE 250 ML IV SCH (09:15)
[2024-09-05] MEDS ORDERED: PHARMACY RENAL DOSE ADJUSTMENT 1 DOSE MISC PO SCH (12:00)
--- NOTE | 2024-09-05 12:48 | EKG ---
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
[2024-09-05] MEDS ORDERED: MAGOX 400400 MG PO (13:00)
[2024-09-05] MEDS ORDERED: JARDIANCE10 MG PO (13:04)
[2024-09-05] MEDS ORDERED: CALCIUM 600 MG1 EAC7 PO (13:05)
[2024-09-05] MEDS ORDERED: DAILY VITE1 EAC1 PO (16:34)
[2024-09-05] MEDS ORDERED: VANCOMYCIN PER PHARMACY PROTOCOL IV SCH (17:45)
[2024-09-05] MEDS ORDERED: SODIUM CHLORIDE 0.9% 1,000 ML IV ONE (18:00)
[2024-09-05] MEDS ORDERED: VANCOMYCIN HCL 2,500 MG in DEXTROSE 5% 500 ML IV ONE (19:00)
[2024-09-05] MEDS ORDERED: HYDROCORTISONE SOD SUCCINATE 100 MG/2 ML VIAL IV SCH (20:00)
[2024-09-05] MEDS ORDERED: LIDOCAINE PATCH REMOVAL 1 EA TD SCH (21:00)
[2024-09-05] MEDS ORDERED: CEFEPIME HCL 2 GM in SODIUM CHLORIDE 0.9% 100 ML IV SCH (22:00)
[2024-09-06] VITALS (12 sets, daily range): BP systolic 101–129; BP diastolic 44–58
[2024-09-06 05:37] LABS: BASOPHILS 0.1 % (0-2); EOSINOPHILS 0.9 % (0-6); HEMATOCRIT 23.1 % (35.0-50.0); HEMOGLOBIN 7.8 g/dL (12.0-18.0); LYMPHOCYTES 7.3 % (24-44); MCH 35.3 (27-36); MCHC 33.7 g/dl (30-36); MCV 104.8 fl (81-99); MONOCYTES 5.3 % (0-12); NEUTROPHILS 86.4 % (39-80); PLATELET COUNT 95 K/uL (140-440); RBC 2.21 M/ul (4.3-5.7); RDW 14.4 (10.5-15.0)
[2024-09-06 05:58] LABS: ALBUMIN 1.6 g/dL (3.4-5.0); ALBUMIN/GLOBULIN RATIO 0.43 (1.1-2.4); ANION GAP 13.2 (7-21); BILIRUBIN, TOTAL 0.5 mg/dL (0.2-1.0); BUN/CREATININE RATIO 16.34 (6.0-28.6); CALCIUM 8.1 mg/dL (8.5-10.1); CREATININE, SERUM 2.57 mg/dL (0.55-1.02); MAGNESIUM 2.1 mg/dL (1.8-2.4); POTASSIUM 4.2 mmol/L (3.5-5.1); PROTEIN, TOTAL 5.3 g/dL (6.4-8.2)
[2024-09-06 09:05] LABS: FOLATE,SERUM 21.1 ng/mL (>=5.9)
[2024-09-06] MEDS ORDERED: DAPTOmycin 500 MG/10 ML VIAL IV SCH (12:00)
[2024-09-06] MEDS ORDERED: VANCOMYCIN HCL 1,250 MG in DEXTROSE 5% 250 ML IV SCH (12:00)
[2024-09-06 17:12] LABS: HIV 1,2 COMBO ANTIGEN/ANTIBODY Negative (Negative)
[2024-09-06] MEDS ORDERED: HYDROCORTISONE SOD SUCCINATE 100 MG/2 ML VIAL IV SCH (20:00)
[2024-09-06] MEDS ORDERED: CEFEPIME HCL 2 GM in SODIUM CHLORIDE 0.9% 100 ML IV SCH (21:00)
[2024-09-06] MEDS ORDERED: FAMOTIDINE 20 MG TAB PO SCH (21:00)
[2024-09-07] VITALS (9 sets, daily range): BP systolic 137–155; BP diastolic 54–67
[2024-09-07 05:58] LABS: ANION GAP 14.5 (7-21); BUN/CREATININE RATIO 19.54 (6.0-28.6); CALCIUM 8.2 mg/dL (8.5-10.1); CREATININE, SERUM 2.2 mg/dL (0.55-1.02); POTASSIUM 3.5 mmol/L (3.5-5.1)
[2024-09-07 05:59] LABS: HEMOGLOBIN 7.9 g/dL (12.0-18.0)
[2024-09-07 06:05] LABS: BASOPHILS 0.2 % (0-2); HEMATOCRIT 23.9 % (35.0-50.0); LYMPHOCYTES 7.7 % (24-44); MCH 34.8 (27-36); MCHC 33.1 g/dl (30-36); MCV 105.4 fl (81-99); NEUTROPHILS 89.1 % (39-80); PLATELET COUNT 90 K/uL (140-440); RBC 2.27 M/ul (4.3-5.7); RDW 14.2 (10.5-15.0)
[2024-09-07] MEDS ORDERED: CEFTRIAXONE SODIUM 2 GM in SODIUM CHLORIDE 0.9% 100 ML IV SCH ×2 (11:15→21:00)
[2024-09-07] MEDS ORDERED: OXYCODONE HCL 5 MG TAB PO PRN (11:30)
[2024-09-07] MEDS ORDERED: methocarbamoL 500 MG TABLET PO PRN (11:30)
[2024-09-07] MEDS ORDERED: HYDROCORTISONE SOD SUCCINATE 100 MG/2 ML VIAL IV SCH (14:00)
[2024-09-07] MEDS ORDERED: CEFTRIAXONE SODIUM 2 GM in SODIUM CHLORIDE 0.9% 100 ML IV ONE (18:00)
[2024-09-08] VITALS (10 sets, daily range): BP systolic 136–169; BP diastolic 57–75
[2024-09-08 05:52] LABS: BASOPHILS 0.1 % (0-2); EOSINOPHILS 0.1 % (0-6); HEMATOCRIT 24.9 % (35.0-50.0); HEMOGLOBIN 8.4 g/dL (12.0-18.0); MCH 35.1 (27-36); MCHC 33.8 g/dl (30-36); MCV 103.8 fl (81-99); MONOCYTES 3.9 % (0-12); NEUTROPHILS 84.9 % (39-80); PLATELET COUNT 84 K/uL (140-440); RDW 14.1 (10.5-15.0)
[2024-09-08 06:04] LABS: ANION GAP 12.2 (7-21); BUN/CREATININE RATIO 19.58 (6.0-28.6); CALCIUM 7.8 mg/dL (8.5-10.1); CREATININE, SERUM 1.94 mg/dL (0.55-1.02); MAGNESIUM 1.9 mg/dL (1.8-2.4); POTASSIUM 3.2 mmol/L (3.5-5.1)
[2024-09-08] MEDS ORDERED: POTASSIUM CHLORIDE 10 MEQ TABCR PO ONE (09:00)
[2024-09-08] MEDS ORDERED: HYDROCORTISONE SOD SUCCINATE 100 MG/2 ML VIAL IV SCH (21:00)
[2024-09-09 05:35] VITALS: BP 165/64
[2024-09-09 05:38] VITALS: BP 165/64
[2024-09-09 05:56] LABS: ANION GAP 11.8 (7-21); BUN/CREATININE RATIO 21.38 (6.0-28.6); CALCIUM 7.5 mg/dL (8.5-10.1); CREATININE, SERUM 1.73 mg/dL (0.55-1.02); MAGNESIUM 1.8 mg/dL (1.8-2.4); POTASSIUM 3.8 mmol/L (3.5-5.1)
[2024-09-09 06:32] LABS: BASOPHILS 0.3 % (0-2); EOSINOPHILS 1.5 % (0-6); HEMATOCRIT 26.5 % (35.0-50.0); LYMPHOCYTES 15.6 % (24-44); MCH 35.2 (27-36); MCHC 33.8 g/dl (30-36); MONOCYTES 4.6 % (0-12); PLATELET COUNT 103 K/uL (140-440); RBC 2.54 M/ul (4.3-5.7); RDW 14.2 (10.5-15.0)
[2024-09-09] MEDS ORDERED: FAMOTIDINE 20 MG TAB PO SCH (09:00)
[2024-09-09 09:36] VITALS: BP 142/58
[2024-09-09 10:09] VITALS: BP 142/58
[2024-09-09] MEDS ORDERED: CEFTRIAXONE SODIUM 2 GM in SODIUM CHLORIDE 0.9% 100 ML IV ONE (12:00)
[2024-09-09] MEDS ORDERED: CEFTRIAXONE2 G2 IM (13:09)
[2024-09-09 13:13] VITALS: BP 160/62
== END 2024-09-09 14:09 | disposition home or self-care (01) | DRG 698 ==
LOC: ED 15:03 → CCU 18:19 → MS 09-06 19:44
PROVIDERS: Emergency Medicine; Student in an Organized Health Care Education/Training Program; ADMIT Student in an Organized Health Care Education/Training Program; ATTEND Student in an Organized Health Care Education/Training Program
PROC: 3E033XZ Introduction of Vasopressor into Peripheral Vein, Percutaneous Approach (ICD-10-PCS; principal; 2024-09-04)
PROC: 3E03329 Introduction of Other Anti-infective into Peripheral Vein, Percutaneous Approach (ICD-10-PCS; 2024-09-05)
PROC: 0T2DX0Z Change Drainage Device in Urethra, External Approach (ICD-10-PCS; 2024-09-05)
DX: T83.511A Infection and inflammatory reaction due to indwelling urethral catheter, initial encounter (principal); A41.59 Other Gram-negative sepsis; R65.21 Severe sepsis with septic shock; D61.818 Other pancytopenia; N17.9 Acute kidney failure, unspecified; E72.20 Disorder of urea cycle metabolism, unspecified; N39.0 Urinary tract infection, site not specified; Z99.3 Dependence on wheelchair; E11.40 Type 2 diabetes mellitus with diabetic neuropathy, unspecified; E03.9 Hypothyroidism, unspecified; E80.6 Other disorders of bilirubin metabolism; I10 Essential (primary) hypertension; J01.90 Acute sinusitis, unspecified; L89.90 Pressure ulcer of unspecified site, unspecified stage; N20.0 Calculus of kidney; K76.0 Fatty (change of) liver, not elsewhere classified; K21.9 Gastro-esophageal reflux disease without esophagitis; G89.29 Other chronic pain; G40.909 Epilepsy, unspecified, not intractable, without status epilepticus; Z87.440 Personal history of urinary (tract) infections; Z85.42 Personal history of malignant neoplasm of other parts of uterus; Z90.49 Acquired absence of other specified parts of digestive tract; Z98.890 Other specified postprocedural states; Z88.8 Allergy status to other drugs, medicaments and biological substances; Z79.1 Long term (current) use of non-steroidal anti-inflammatories (NSAID); Z79.2 Long term (current) use of antibiotics; Z79.84 Long term (current) use of oral hypoglycemic drugs; Z79.85 Long-term (current) use of injectable non-insulin antidiabetic drugs; Z79.891 Long term (current) use of opiate analgesic; Z79.890 Hormone replacement therapy; Z79.899 Other long term (current) drug therapy; Y84.6 Urinary catheterization as the cause of abnormal reaction of the patient, or of later complication, without mention of misadventure at the time of the procedure
CPT/HCPCS: 36415; 51702; 70450; 71045; 71250; 74176; 80048; 80053; 80061; 81001; 82140; 82607; 82746; 83605; 83735; 84100; 84484; 85025; 85060; 86140; 87040; 87077; 87088; 87186; 93005; 93010; 97161; 97165; 97530; 99285-25; A9270; J0692; J0696; J0878; J1644; J1720; J1815; J3370; J3475; J7030; J7060; J7121

== ENCOUNTER 2025-02-08 18:51 | Emergency (ER) | payer OTHER, MEDICARE ==
[~2025-02-08] VITALS: Ht 162.6 cm; Wt 118.9 kg
[~2025-02-08 18:51] MED LIST changes: +CALCIUM 600 MG1 EAC7 PO; +CEFTRIAXONE2 G2 IM; +DAILY VITE1 EAC1 PO; +JARDIANCE10 MG PO
[2025-02-08] MEDS ORDERED: PERCOCET 5-3251 EACH PO (22:24)
[2025-02-08] MEDS ORDERED: OXYCODONE/ACETAMINOPHEN 1 TAB HOME.PACK PO ONE (22:30)
[2025-02-08] MEDS ORDERED: HYDROCODONE/ACETA 7.5/325 TAB PO ONE (22:30)
[2025-02-09 01:00] VITALS: BP 110/60
== END 2025-02-09 01:00 | disposition home or self-care (01) ==
LOC: ED 18:51
DX: S02.832A Fracture of medial orbital wall, left side, initial encounter for closed fracture (principal); S01.112A Laceration without foreign body of left eyelid and periocular area, initial encounter; E11.40 Type 2 diabetes mellitus with diabetic neuropathy, unspecified; Z99.3 Dependence on wheelchair; Z88.8 Allergy status to other drugs, medicaments and biological substances; Z79.890 Hormone replacement therapy; Z79.84 Long term (current) use of oral hypoglycemic drugs; Z79.899 Other long term (current) drug therapy; V48.4XXA Person boarding or alighting a car injured in noncollision transport accident, initial encounter
CPT/HCPCS: 70450; 70486; 72125; 73110; 73502; 73560; 99284-25; A9270